=== PATIENT | female | born 1940 | race Hispanic/Latino ===

== ENCOUNTER 2018-04-01 09:12 | Inpatient (IN) | payer MEDICARE, OTHER ==
[~2018-04-01] VITALS: Ht 162.6 cm; Wt 74.1 kg
--- OUTSIDE RECORDS SUMMARY | 2018-04-01 09:21 | XMS REPORT | Continuity of Care Document ---
Author Author [facility] Interface Address Unknown Phone Unavailable Problems Problem Status Onset Date Classification Date Reported Comments Source M54.6/M54.5 Active 03/30/2018 [facility] COUGH Active 10/22/2017 [facility] Discharge Diagnosis: Acute UTI 01/25/2017 01/28/2017 [facility] Discharge Diagnosis: Neck pain 01/25/2017 01/28/2017 [facility] Discharge Diagnosis: Acute bilateral back pain 01/25/2017 01/28/2017 [facility] BACK PAIN Active 01/24/2017 [facility], [facility] [place] ABD/BACK PAIN Active 01/17/2017 [facility] Discharge Diagnosis: Abdominal pain in female. 01/17/2017 01/20/2017 [facility] Discharge Diagnosis: Acute lower urinary tract infection 01/17/2017 01/20/2017 [facility] Discharge Diagnosis: Nausea, vomiting, and diarrhea 12/12/2016 12/15/2016 [facility] VOMITING Active 12/12/2016 [facility] Discharge Diagnosis: Hypertension 09/01/2016 09/05/2016 [facility] Discharge Diagnosis: Headache 09/01/2016 09/05/2016 [facility] HIGH BP - DR SENT Active 09/01/2016 [facility] Discharge Diagnosis: Chronic pain 12/23/2015 12/27/2015 [facility] Discharge Diagnosis: Back pain 12/23/2015 12/27/2015 [facility] Discharge Diagnosis: Anxiety 12/23/2015 12/27/2015 [facility] Discharge Diagnosis: Hypertension 12/23/2015 12/27/2015 [facility] SOB Active 12/23/2015 [facility] Discharge Diagnosis: Chronic back pain 12/22/2015 12/25/2015 [facility] Discharge Diagnosis: Itching 12/22/2015 12/25/2015 [facility] ACUTE ASTHMA EXCERBATION, HYPOTENSIVE EP Active 10/28/2015 [facility] ASTHMA Active 10/28/2015 [facility] Discharge Diagnosis: Asthma 10/25/2015 10/28/2015 [facility] Discharge Diagnosis: Epigastric abdominal pain 10/25/2015 10/28/2015 [facility] ATYPICAL CHEST PAIN AND GENERALIZED PAIN Active 10/19/2015 [facility] ABD PAIN Active 10/19/2015 [facility] PAIN IN ARM/INFECTION Active 10/05/2015 [facility] ATYPICAL CHEST PAIN, DYSPNEA Active 10/05/2015 [facility] Discharge Diagnosis: Acute bronchitis, unspecified 09/28/2015 10/01/2015 [facility] Discharge Diagnosis: Hypokalemia 09/28/2015 10/01/2015 [facility] Discharge Diagnosis: Upper abdominal pain, unspecified 09/26/2015 09/29/2015 [facility] Discharge Diagnosis: Low back pain 09/26/2015 09/29/2015 [facility] NAUSEA Active 09/25/2015 [facility] Discharge Diagnosis: Generalized abdominal pain 09/14/2015 09/17/2015 [facility] Discharge Diagnosis: Vomiting without nausea 09/14/2015 09/17/2015 [facility] Discharge Diagnosis: Headache 09/14/2015 09/17/2015 [facility] MIGRAINE Active 09/14/2015 [facility] Discharge Diagnosis: Back pain, chronic 08/25/2015 08/28/2015 [facility] Discharge Diagnosis: Urinary tract infection, site not specified 08/20/2015 08/23/2015 [facility] Discharge Diagnosis: DJD , lumbar 06/14/2015 06/18/2015 [facility] PALPITATIONS NEAR SYNCOPE Active 06/04/2015 [facility] PALLPITATIONS Active 06/04/2015 [facility] Discharge Diagnosis: Other muscle spasm 05/27/2015 05/30/2015 [facility] Discharge Diagnosis: Weakness 05/27/2015 05/30/2015 [facility] WEAKNESS Active 05/27/2015 [facility] GENERALIZED WEAKNESS, DEHYDRATION Active 05/04/2015 [facility] HEAD ACHE/ BACK PAIN Active 05/04/2015 [facility] Discharge Diagnosis: Acute URI 03/04/2015 03/07/2015 [facility] HEAD PAIN/BACK PAIN Active 03/04/2015 [facility] Discharge Diagnosis: Lumbago syndrome 02/06/2015 02/09/2015 [facility] Discharge Diagnosis: Hypertension 11/22/2014 11/25/2014 [facility] HIGH BLOOD PRESSURE Active 11/22/2014 [facility] Discharge Diagnosis: Bronchitis 11/09/2014 11/12/2014 [facility] Discharge Diagnosis: URI, acute 11/09/2014 11/12/2014 [facility] Discharge Diagnosis: Acute back pain 10/19/2014 10/22/2014 [facility] ABDOMINAL PAIN Active 10/19/2014 [facility] Discharge Diagnosis: Migraine 09/02/2014 09/05/2014 [facility] Discharge Diagnosis: Gastritis 09/02/2014 09/05/2014 [facility] HEADACHE Active 09/01/2014 [facility] CHEST PAIN Active 08/16/2014 [facility] HEADACHE/ CHEST PAIN Active 08/14/2014 [facility] Discharge Diagnosis: Back pain, chronic 05/05/2014 05/07/2014 [facility] Major depressive disorder<sup>17</sup> Active 03/24/2014 Problem 01/28/2017 Data migrated from [employer] on 08/23/14. [facility] Discharge Diagnosis: Chronic pain 11/16/2013 11/19/2013 [facility] Discharge Diagnosis: Back pain 11/16/2013 11/19/2013 [facility] Discharge Diagnosis: Arthritis 11/16/2013 11/19/2013 [facility] LOWER BACK PAIN/LEG PAIN Active 11/16/2013 [facility] SCREENING Active 10/31/2013 [facility] Sleep apnea<sup>11</sup> Active 10/27/2013 Problem 08/20/2014 11Data migrated from [employer] on 07/15/14. [facility] Sleep apnea<sup>23</sup> Active 10/27/2013 Problem 01/28/2017 Data migrated from [employer] on 07/15/14. [facility] Discharge Diagnosis: Acute viral syndrome 10/20/2013 10/23/2013 [facility] Gastroesophageal reflux disease<sup>6</sup> Active 08/08/2013 Problem 08/20/2014 6Data migrated from [employer] on 07/15/14. [facility] Acute bronchitis<sup>1, 2</sup> Resolved 08/08/2013 Problem 01/28/2017 Data migrated from [employer] on 09/01/14. [facility] Gastroesophageal reflux disease<sup>10</sup> Active 08/08/2013 Problem 01/28/2017 Data migrated from [employer] on 07/15/14. [facility] Allergic rhinitis<sup>1</sup> Active 05/02/2013 Problem 08/20/2014 1Data migrated from [employer] on 07/15/14. [facility] Chronic headache disorder<sup>5</sup> Active 05/02/2013 Problem 08/20/2014 5Data migrated from [employer] on 07/15/14. [facility] Vertigo<sup>12</sup> Active 05/02/2013 Problem 08/20/2014 12Data migrated from [employer] on 07/15/14. [facility] Allergic rhinitis<sup>3</sup> Active 05/02/2013 Problem 01/28/2017 Data migrated from [employer] on 07/15/14. [facility] Chronic headache disorder<sup>8</sup> Active 05/02/2013 Problem 01/28/2017 Data migrated from [employer] on 07/15/14. [facility] Vertigo<sup>24</sup> Active 05/02/2013 Problem 01/28/2017 Data migrated from [employer] on 07/15/14. [facility] Asthma<sup>2</sup> Active 01/28/2013 Problem 08/20/2014 2Data migrated from [employer] on 07/15/14. [facility] Insomnia<sup>7</sup> Active 01/28/2013 Problem 08/20/2014 7Data migrated from [employer] on 07/15/14. [facility] Asthma<sup>4</sup> Active 01/28/2013 Problem 01/28/2017 Data migrated from [employer] on 07/15/14. [facility] Insomnia<sup>16</sup> Active 01/28/2013 Problem 01/28/2017 Data migrated from [employer] on 07/15/14. [facility] Impaired fasting glycaemia<sup>12</sup> Resolved 01/16/2013 Problem 01/28/2017 Data migrated from [employer] on 08/23/14. [facility] Impaired glucose tolerance<sup>13</sup> Active 01/16/2013 Problem 01/28/2017 Data migrated from [employer] on 08/23/14. [facility] Mixed hyperlipidemia<sup>8</sup> Active 12/28/2012 Problem 08/20/2014 8Data migrated from [employer] on 07/15/14. [facility] Mixed hyperlipidemia<sup>18</sup> Active 12/28/2012 Problem 01/28/2017 Data migrated from [employer] on 07/15/14. [facility] MENAPAUSAL Active 09/17/2012 [facility] Benign essential hypertension<sup>3</sup> Active 07/09/2012 Problem 08/20/2014 3Data migrated from [employer] on 07/15/14. [facility] Benign essential hypertension<sup>5</sup> Active 07/09/2012 Problem 01/28/2017 Data migrated from [employer] on 07/15/14. [facility] MIGRAINES/VOMITTING/COLD SWEATS Active 02/06/2012 [facility] Chronic back pain<sup>4</sup> Active 02/16/1957 Problem 08/20/2014 4Data migrated from [employer] on 07/15/14. [facility] Chronic back pain<sup>7</sup> Active 02/16/1959 Problem 01/28/2017 Data migrated from [employer] on 07/15/14. [facility] Arthritis Resolved Problem 09/23/2012 [facility] Hypertension Resolved Problem 09/23/2012 [facility] Arthritis Active Problem 01/28/2017 [facility] Hypertension Active Problem 01/28/2017 [facility] Migraine Active Problem 01/28/2017 [facility] Spinal stenosis Active Problem 01/28/2017 [facility] Hyperlipidemia Active Problem 01/28/2017 [facility] Osteoarthritis<sup>9</sup> Active Problem 08/20/2014 9Data migrated from [employer] on 07/15/14. [facility] Osteopenia<sup>10</sup> Active Problem 08/20/2014 10Data migrated from [employer] on 07/15/14. [facility] Backache Active Problem 01/28/2017 [facility] HTN (<span ID="[id number]">Confirmed</span>) Active Problem 01/28/2017 [facility] Child examination finding<sup>6</sup> Resolved Problem 01/28/2017 Data migrated from [employer] on 09/01/14. [facility] Diverticulitis Active Problem 01/28/2017 [facility] Evaluation finding<sup>9</sup> Resolved Problem 01/28/2017 Data migrated from [employer] on 09/01/14. [facility] Gastritis Resolved Problem 01/28/2017 [facility] GERD (<span ID="[id number]">Confirmed</span>) Resolved Problem 01/28/2017 [facility] Gynecologic examination<sup>11</sup> Resolved Problem 01/28/2017 Data migrated from [employer] on 09/01/14. [facility] HTN - Hypertension Resolved Problem 01/28/2017 [facility] Osteoarthritis<sup>19</sup> Active Problem 01/28/2017 Data migrated from [employer] on 07/15/14. [facility] Osteopenia<sup>20</sup> Active Problem 01/28/2017 Data migrated from [employer] on 07/15/14. [facility] Physical examination procedure<sup>21</sup> Resolved Problem 01/28/2017 Data migrated from [employer] on 09/01/14. [facility] Screening mammography<sup>22</sup> Resolved Problem 01/28/2017 Data migrated from [employer] on 09/01/14. [facility] Ac DVT/embl low ext NOS Resolved Problem 01/28/2017 [facility] XRAY Active [facility] JOINT PAIN-PELVIS Active [facility] SYMPT FEM CLIMACT STATE Active [facility] BAKC PAIN Active [facility] ASYMPTOMATIC PREMATURE MENOPAUSE Active [facility] Medications Medication Details Route Status Patient Instructions Ordering Provider Order Date Source tramadol hydrochloride 50 MG Oral Tablet [Ultram] 25 mg=0.5 tab, PO, Q6H, PRN Pain Score 6-10, X 5 day, # 12 tab, 0 Refill(s) Active 01/25/2017 [facility] Cephalexin 500 MG Oral Capsule [Keflex] 500 mg=1 cap, PO, QID, X 5 day, # 20 cap, 0 Refill(s) Active 01/25/2017 [facility] Zofran 4 mg, Route: IVP, Drug form: INJ, ONCE, Dosing Weight 72.727, kg, Priority: STAT, Start date: 01/25/17 2:20:00 FERMENTER, Stop date: 01/25/17 2:20:00 FERMENTER Inactive 01/25/2017 [facility] Morphine 2 mg, Route: IVP, ONCE, Dosing Weight 72.727, kg, Priority: STAT, Start date: 01/25/17 2:20:00 FERMENTER, Stop date: 01/25/17 2:20:00 FERMENTER Inactive 01/25/2017 [facility] Sodium Chloride 0.9% (Bolus) IV 1,000 mL, 1000 ml/hr, Infuse Over: 1 hr, Route: IV, 1,000, Drug form: INJ, ONCE, Priority: STAT, Dosing Weight 72.727 kg, Start date: 01/25/17 0:52:00 FERMENTER, Stop date: 01/25/17 0:52:00 FERMENTER Inactive 01/25/2017 [facility] Ceftriaxone 1 gm, Route: IV, ONCE, Dosing Weight 72.727, kg, Priority: STAT, Start date: 01/25/17 0:52:00 FERMENTER, Stop date: 01/25/17 0:52:00 FERMENTER, ABX Indication: Urinary Tract InfectionNotes: (Same As: Rocephin). Use with 100 mL NS and infuse over 30 min MEDICATION WASTE Product Size: 1000 mg Product Wasted: ___ mg Inactive 01/25/2017 [facility] Tylenol 650 mg, Route: PO, Drug form: TAB, ONCE, Dosing Weight 72.727, kg, Priority: STAT, Start date: 01/25/17 0:51:00 FERMENTER, Stop date: 01/25/17 0:51:00 FERMENTER Inactive 01/25/2017 [facility] Saline Flush 0.9% 10 mL, Route: IVP, Drug Form: INJ, Dosing Weight 70.455, kg, PRN, PRN Line Flush, Start date: 01/24/17 19:55:00 FERMENTER, Duration: 30 day, Stop date: 02/23/17 19:54:00 CSTNotes: (Same as: BD Posiflush) No Longer Active 01/25/2017 [facility] Sulfamethoxazole 800 MG / Trimethoprim 160 MG Oral Tablet [Bactrim] 1 tab, PO, BID, for UTI, X 7 day, # 14 tab, 0 Refill(s) Active 01/18/2017 [facility] Zofran ODT 4 mg, Route: PO, Drug form: TABDIS, ONCE, Dosing Weight 70.455, kg, Priority: STAT, Start date: 01/17/17 20:34:00 FERMENTER, Stop date: 01/17/17 20:34:00 FERMENTER Inactive 01/18/2017 [facility] Morphine 4 mg, Route: IM, ONCE, Dosing Weight 70.455, kg, Priority: STAT, Start date: 01/17/17 20:11:00 FERMENTER, Stop date: 01/17/17 20:11:00 FERMENTER Inactive 01/18/2017 [facility] Tylenol 650 mg, 2 tab, Route: PO, Drug form: TAB, ONCE, Dosing Weight 70.455, kg, Priority: STAT, Start date: 01/17/17 19:54:00 FERMENTER, Stop date: 01/17/17 19:54:00 CSTNotes: Do not exceed 4 gm/day. (Same as: Tylenol) Inactive 01/18/2017 [facility] Rocephin 1 gm, Route: IVPB, Drug form: PDR/INJ, ONCE, Dosing Weight 70.455, kg, Priority: STAT, Start date: 01/17/17 19:42:00 FERMENTER, Stop date: 01/17/17 19:42:00 FERMENTER, ABX Indication: Urinary Tract Infection Inactive 01/18/2017 [facility] NS (Bolus) IV 1,000 mL, 1,000 ml/hr, Infuse Over: 1 hr, Route: IV, 1,000, Drug form: INJ, ONCE, Priority: STAT, Dosing Weight 70.455 kg, Start date: 01/17/17 16:50:00 FERMENTER, Stop date: 01/17/17 16:50:00 FERMENTER Inactive 01/17/2017 [facility] Morphine 4 mg, 1 mL, Route: IVP, Drug form: SOLN, ONCE, Dosing Weight 70.455, kg, Priority: STAT, Start date: 01/17/17 16:49:00 FERMENTER, Stop date: 01/17/17 16:49:00 CSTNotes: (Same as:MORPhine Sulfate) Inactive 01/17/2017 [facility] Ondansetron 4 mg, 2 mL, Route: IVP, Drug form: INJ, ONCE, Dosing Weight 70.455, kg, Priority: STAT, Start date: 01/17/17 15:36:00 FERMENTER, Stop date: 01/17/17 15:36:00 CSTNotes: (Same as: Zofran) MEDICATION WASTE Product Size: 4 mg Product Wasted: ___ mg Inactive 01/17/2017 [facility] Saline Flush 0.9% 10 mL, Route: IVP, Drug Form: INJ, Dosing Weight 70.455, kg, PRN, PRN Line Flush, Start date: 01/17/17 15:36:00 FERMENTER, Duration: 30 day, Stop date: 02/16/17 15:35:00 CSTNotes: (Same as: BD Posiflush) Inactive 01/17/2017 [facility] Zofran ODT 4 mg oral tablet, disintegrating 4 mg=1 tab, PO, BID, PRN Nausea and Vomiting, Dissolve tab under tongue, # 10 tab, 0 Refill(s) Active 12/13/2016 [facility] morphine Sulfate 4 mg, Route: IVP, ONCE, Dosing Weight 72.727, kg, Priority: STAT, Start date: 12/12/16 17:02:00 CDT, Stop date: 12/12/16 17:02:00 CDT Inactive 12/12/2016 [facility] Zofran 4 mg, 2 mL, Route: IVP, Drug form: INJ, ONCE, Dosing Weight 72.727, kg, Priority: STAT, Start date: 12/12/16 13:09:00 CDT, Stop date: 12/12/16 13:09:00 CDTNotes: (Same as: Zofran) MEDICATION WASTE Product Size: 4 mg Product Wasted: ___ mg Inactive 12/12/2016 [facility] NS (Bolus) IV 1,000 mL, 1,000 ml/hr, Infuse Over: 1 hr, Route: IV, 1,000, Drug form: INJ, ONCE, Priority: STAT, Dosing Weight 72.727 kg, Start date: 12/12/16 13:09:00 CDT, Duration: 1 doses or times, Stop date: 13:09:00 CDT Inactive 12/12/2016 [facility] Saline Flush 0.9% 10 mL, Route: IVP, Drug Form: INJ, Dosing Weight 61.364, kg, PRN, PRN Line Flush, Start date: 12/12/16 13:07:00 CDT, Duration: 30 day, Stop date: 01/11/17 12:06:00 CSTNotes: (Same as: BD Posiflush) Inactive 12/12/2016 [facility] Clonidine Hydrochloride 0.1 MG Oral Tablet 0.1 mg, 1 tab, Route: PO, Drug form: TAB, ONCE, Dosing Weight 61.364, kg, Priority: STAT, Start date: 09/01/16 21:45:00 CDT, Stop date: 09/01/16 21:45:00 CDTNotes: (Same As: Catapres) Inactive 09/02/2016 [facility] Acetaminophen 325 MG / Hydrocodone Bitartrate 5 MG Oral Tablet 1 tab, Route: PO, Drug Form: TAB, Dosing Weight 61.364, kg, ONCE, STAT, Start date: 09/01/16 20:17:00 CDT, Stop date: 09/01/16 20:17:00 CDTNotes: (Same as: [place] 325/5) Do not exceed 4gm/day of acetaminophen. Inactive 09/02/2016 [facility] Sodium Chloride 0.154 MEQ/ML Injectable Solution 1,000 mL, Rate: 75 ml/hr, Infuse over: 13.3 hr, Route: IV, Dosing Weight 61.364 kg, Total Volume: 1,000, Priority: STAT, Start date: 09/01/16 20:17:00 CDT, Duration: 1 doses or times, Stop date: 09/02/16 9:34:00 CDT Inactive 09/02/2016 [facility] Metoclopramide 10 mg, 2 mL, Route: IVP, Drug form: INJ, ONCE, Dosing Weight 61.364, kg, Priority: STAT, Start date: 09/01/16 20:17:00 CDT, Stop date: 09/01/16 20:17:00 CDTNotes: (Same as: Reglan) Inactive 09/02/2016 [facility] Saline Flush 0.9% 10 mL, Route: IVP, Drug Form: INJ, Dosing Weight 61.364, kg, PRN, PRN Line Flush, Start date: 09/01/16 12:51:00 CDT, Duration: 30 day, Stop date: 10/01/16 12:50:00 CDTNotes: (Same as: BD Posiflush) No Longer Active 09/01/2016 [facility] Acetaminophen 325 MG / Hydrocodone Bitartrate 5 MG Oral Tablet [[place] 5/325] 1 tab, Route: PO, Drug Form: TAB, Dosing Weight 61.364, kg, ONCE, STAT, Start date: 12/23/15 22:20:00 FERMENTER, Stop date: 12/23/15 22:20:00 FERMENTER Inactive 12/24/2015 [facility] Morphine 2 mg, Route: IVP, ONCE, Dosing Weight 61.364, kg, Priority: STAT, Start date: 12/23/15 22:20:00 FERMENTER, Stop date: 12/23/15 22:20:00 FERMENTER Inactive 12/24/2015 [facility] Ativan 0.5 mg, Route: IVP, Drug form: INJ, ONCE, Dosing Weight 61.364, kg, Priority: STAT, Start date: 12/23/15 21:41:00 FERMENTER, Stop date: 12/23/15 21:41:00 FERMENTER Inactive 12/24/2015 [facility] Morphine 4 mg, Route: IVP, ONCE, Dosing Weight 61.364, kg, Priority: STAT, Start date: 12/23/15 21:27:00 FERMENTER, Stop date: 12/23/15 21:27:00 FERMENTER Inactive 12/24/2015 [facility] Sodium Chloride 0.154 MEQ/ML Injectable Solution 1,000 mL, 1,000 ml/hr, Infuse Over: 1 hr, Route: IV, ONCE, Priority: STAT, Dosing Weight 61.364 kg, Start date: 12/23/15 21:27:00 FERMENTER, Duration: 1 doses or times, Stop date: 12/23/15 21:27:00 FERMENTER Inactive 12/24/2015 [facility] Diphenhydramine Hydrochloride 25 MG Oral Tablet [Benadryl] 25 mg=1 tab, PO, TID, PRN as needed for itching, X 3 day, # 9 tab, 0 Refill(s) Active 12/22/2015 [facility] Diphenhydramine 25 mg, Route: IVP, ONCE, Dosing Weight 60.909, kg, Priority: STAT, Start date: 12/22/15 13:09:00 CDT, Stop date: 12/22/15 13:09:00 CDT Inactive 12/22/2015 [facility] acetaminophen-codeine #3 1 tab, Route: PO, Drug Form: TAB, Dosing Weight 60.909, kg, ONCE, STAT, Start date: 12/22/15 13:09:00 CDT, Stop date: 12/22/15 13:09:00 CDT Inactive 12/22/2015 [facility] Sodium Chloride 0.154 MEQ/ML Injectable Solution 1,000 mL, Rate: 75 ml/hr, Infuse over: 13.3 hr, Route: IV, Dosing Weight 67.273 kg, Total Volume: 1,000, Start date: 10/31/15 12:12:00 CDT, Duration: 30 day, Stop date: 11/30/15 12:11:00 CDT Inactive 10/31/2015 [facility] isosorbide mononitrate 30 mg oral tablet, extended release 30 mg=1 tab, PO, [id number], # 30 tab, 0 Refill(s), Pharmacy: [facility] [id number] Active 10/31/2015 [facility] lisinopril 10 mg oral tablet 10 mg=1 tab, PO, Daily, # 30 tab, 0 Refill(s), Pharmacy: [facility] [id number] Active 10/31/2015 [facility] mirtazapine 15 mg oral tablet 7.5 mg=0.5 tab, PO, Bedtime, # 15 tab, 0 Refill(s), Pharmacy: [facility] [id number] Active 10/31/2015 [facility] Acetaminophen 300 MG / butalbital 50 MG / Caffeine 40 MG Oral Capsule [Fioricet] 1 cap, PO, Q4H, PRN Headache 1-5, X 14 day, # 84 cap, 0 Refill(s), Pharmacy: [facility] [id number] Active 10/31/2015 [facility] Acetaminophen 300 MG / Codeine Phosphate 30 MG Oral Tablet 1 tab, PO, Q4H, PRN Pain Score 4-6, X 14 day, # 84 tab, 0 Refill(s) Active 10/31/2015 [facility] Remeron 7.5 mg, 0.5 tab, Route: PO, Drug form: TAB, Bedtime, Dosing Weight 67.273, kg, Start date: 10/30/15 21:00:00 CDT, Duration: 30 day, Stop date: 11/28/15 21:00:00 CDTNotes: (Same as:Remeron) No Longer Active 10/31/2015 [facility] Lisinopril 10 mg, 1 tab, Route: PO, Drug form: TAB, Daily, Dosing Weight 67.273, kg, Start date: 10/30/15 16:00:00 CDT, Duration: 30 day, Stop date: 11/29/15 9:00:00 CDTNotes: (Same as: Prinivil, Zestril) No Longer Active 10/30/2015 [facility] Hydralazine 10 mg, 0.5 mL, Route: IVP, Drug form: INJ, Q6H, Dosing Weight 67.273, kg, PRN Hypertension, 10mg IV q6h prn SBP>160mmHg, Start date: 10/30/15 15:30:00 CDT, Duration: 30 day, Stop date: 11/29/15 15:29 :00 CDTNotes: (Same as: Apresoline) Push over 5 minutes No Longer Active 10/30/2015 [facility] Streptococcus pneumoniae serotype 1 capsular antigen diphtheria [id number] protein conjugate vaccine / Streptococcus pneumoniae serotype 14 capsular antigen diphtheria [id number] protein conjugate vaccine / Streptococcus pneumoniae serotype 18C capsular antigen d 0.5 mL, Route: IM, Drug Form: INJ, Daily, Start date: 10/30/15 9:00:00 CDT, Stop date: 10/30/15 13:00:00 CDTNotes: Lightly roll vial (DO NOT SHAKE) before administration. (Same as: Prevnar 13) Inactive 10/30/2015 [facility] atorvastatin 40 mg, 1 tab, Route: PO, Drug form: TAB, Bedtime, Dosing Weight 67.273, kg, Start date: 10/29/15 21:00:00 CDT, Duration: 30 day, Stop date: 11/27/15 21:00:00 CDTNotes: (Same as: Lipitor) No Longer Active 10/30/2015 [facility] Ondansetron 4 mg, 1 tab, Route: PO, Drug form: TAB, Q8H, Dosing Weight 67.273, kg, PRN Nausea & Vomiting, Start date: 10/29/15 15:45:00 CDT, Duration: 30 day, Stop date: 11/28/15 15:44:00 CDTNotes: (Same as: Zofran) No Longer Active 10/29/2015 [facility] [place] Nitroglycerin 0.4 mg, 1 tab, Route: SL, Drug form: TAB, Q5Min, Dosing Weight 67.273, kg, PRN Chest Pain, Start date: 10/29/15 15:45:00 CDT, Duration: 3 doses or times, Stop date: Limited # of timesNotes: (Same as: Nitroquick, Nitrostat) "Do Not Crush" Sublingual tablet No Longer Active 10/29/2015 [facility] [place] 24 HR Metoprolol Tartrate 25 MG Extended Release Tablet [Toprol] 25 mg, 1 tab, Route: PO, Drug form: ERTAB, Daily, Start date: 10/29/15 13:00:00 CDT, Duration: 30 day, Stop date: 11/28/15 9:00:00 CDTNotes: (Same as: Toprol XL) Do Not Crush No Longer Active 10/29/2015 [facility] [place] Please clarify what day of the week Patient takes Fosamax Please clarify what day of the week Patient takes Fosamax, Reminder, Drug form: MISC, Route: MISC, Daily, 10/29/15 10:00:00 CDT, Duration: 30 day, Stop date: 11/28/15 9:00:00 CDT No Longer Active 10/29/2015 [facility] [place] Symbicort 160/4.5 inhalation aerosol with adapter 2 inhalation, Route: INHALATION, Drug Form: AERO/A, Dosing Weight 67.273, kg, BID, Start date: 10/29/15 9:00:00 CDT, Duration: 30 day, Stop date: 11/27/15 17:00:00 CDTNotes: (Same as: Symbicort) WASTE: Aerosol - Return to Pharmacy No Longer Active 10/29/2015 [facility] [place] Aspirin 81 MG Enteric Coated Tablet 81 mg, 1 tab, Route: PO, Drug form: ECTAB, Daily, Dosing Weight 67.273, kg, Start date: 10/29/15 9:00:00 CDT, Duration: 30 day, Stop date: 11/27/15 9:00:00 CDTNotes: Do not crush or chew. (Same As: Ecotrin) No Longer Active 10/29/2015 [facility] [place] Solu-Medrol 40 mg, 1 mL, Route: IVP, Drug form: INJ, Q12H, Dosing Weight 67.273, kg, Start date: 10/29/15 9:00:00 CDT, Duration: 30 day, Stop date: 11/27/15 21:00:00 CDTNotes: (Same as:Solu-MEDROL, A-Methapred) No Longer Active 10/29/2015 [facility] [place] Alendronate 70 mg, Route: PO, Drug form: TAB, Q7D, Dosing Weight 67.273, kg, Start date: 10/29/15 9:00:00 CDT, Duration: 30 day, Stop date: 11/26/15 9:00:00 CDT No Longer Active 10/29/2015 [facility] [place] Famotidine 20 mg, 1 tab, Route: PO, Drug form: TAB, BID, Dosing Weight 67.273, kg, Start date: 10/29/15 9:00:00 CDT, Duration: 30 day, Stop date: 11/27/15 17:00:00 CDTNotes: (Same as: Pepcid) No Longer Active 10/29/2015 [facility] [place] Amlodipine 10 mg, 2 tab, Route: PO, Drug form: TAB, Daily, Dosing Weight 67.273, kg, Start date: 10/29/15 9:00:00 CDT, Duration: 30 day, Stop date: 11/27/15 9:00:00 CDTNotes: (Same as: Norvasc) Inactive 10/29/2015 [facility] [place] Furosemide 20 MG Oral Tablet 20 mg, 1 tab, Route: PO, Drug form: TAB, Daily, Dosing Weight 67.273, kg, Start date: 10/29/15 9:00:00 CDT, Duration: 30 day, Stop date: 11/27/15 9:00:00 CDTNotes: (Same as: Lasix) May cause GI upset. Give with food or milk. Inactive 10/29/2015 [facility] [place] digoxin 125 mcg (0.125 mg) oral tablet 125 microgram, 1 tab, Route: PO, Drug form: TAB, Daily, Dosing Weight 67.273, kg, Start date: 10/29/15 9:00:00 CDT, Duration: 30 day, Stop date: 11/27/15 9:00:00 CDTNotes: Take on an Empty Stomach (Same as: Lanoxin) Inactive 10/29/2015 [facility] [place] Tramadol 50 mg, 1 tab, Route: PO, Drug form: TAB, Q6H, Dosing Weight 67.273, kg, PRN Pain Score 1-3, Start date: 10/29/15 8:55:00 CDT, Duration: 30 day, Stop date: 11/28/15 8:54:00 CDTNotes: Not to exceed 400mg/day. (Same As: Ultram) No Longer Active 10/29/2015 [facility] [place] Afrin 0.05% nasal spray 2 spray, Route: NASAL, Drug Form: SPRY, Dosing Weight 67.273, kg, BID, PRN Congestion, Start date: 10/29/15 8:55:00 CDT, Duration: 30 day, Stop date: 11/28/15 8:54:00 CDTNotes: (Same as: Afrin) No Longer Active 10/29/2015 [facility] [place] Metoclopramide 5 MG Oral Tablet 5 mg, 1 tab, Route: PO, Drug form: TAB, Before Meals & Bedtime, Dosing Weight 67.273, kg, PRN Nausea, Start date: 10/29/15 8:55:00 CDT, Duration: 30 day, Stop date: 11/28/15 8:54:00 CDTNotes: (Same as: Reglan) Take 30 min before meals No Longer Active 10/29/2015 [facility] [place] Lorazepam 1 mg, 1 tab, Route: PO, Drug form: TAB, Q6H, Dosing Weight 67.273, kg, PRN Anxiety, Start date: 10/29/15 8:55:00 CDT, Duration: 30 day, Stop date: 11/28/15 8:54:00 CDTNotes: (Same as: Ativan) No Longer Active 10/29/2015 [facility] [place] Dicyclomine 10 mg, 1 cap, Route: PO, Drug form: CAP, QID- Before Meals, Dosing Weight 67.273, kg, PRN Cramps, Start date: 10/29/15 8:54:00 CDT, Duration: 30 day, Stop date: 11/28/15 8:53:00 CDTNotes: (Same as: Leo) No Longer Active 10/29/2015 [facility] [place] Acetaminophen 325 MG / butalbital 50 MG / Caffeine 40 MG Oral Tablet 1 tab, Route: PO, Drug Form: TAB, Dosing Weight 67.273, kg, Q4H, PRN Headache 1-5, Start date: 10/29/15 8:54:00 CDT, Duration: 30 day, Stop date: 11/28/15 8:53:00 CDT No Longer Active 10/29/2015 [facility] [place] 200 ACTUAT Albuterol 0.09 MG/ACTUAT Metered Dose Inhaler 2 puff, Route: INHALATION, Drug Form: AERO/A, Dosing Weight 67.273, kg, QID, PRN Wheezing, Start date: 10/29/15 8:54:00 CDT, Duration: 30 day, Stop date: 11/28/15 8:53:00 CDTNotes: Albuterol 90 microgram/inh 8gm HFA WASTE: Aerosol - Return to Pharmacy Same as: Ventolin Proventil No Longer Active 10/29/2015 [facility] [place] Acetaminophen 300 MG / Codeine Phosphate 30 MG Oral Tablet 1 tab, Route: PO, Drug Form: TAB, Dosing Weight 67.273, kg, Q4H, PRN Pain Score 4-6, Start date: 10/29/15 8:54:00 CDT, Duration: 30 day, Stop date: 11/28/15 8:53:00 CDTNotes: Do not exceed 4gm/day of acetaminophen. (Same as: Tylenol with Codeine # 3) No Longer Active 10/29/2015 [facility] [place] Albuterol 0.83 MG/ML Inhalant Solution 2.49 mg, 3 mL, Route: NEB, Drug form: SOLN, RQ4H, Dosing Weight 67.273, kg, Start date: 10/28/15 23:00:00 CDT, Duration: 30 day, Stop date: 11/27/15 19:00:00 CDT, Pediatric DosingNotes: SEE RT DOCUMENTATION (Same as: Proventil) Inactive 10/29/2015 [facility] [place] Lovenox 40 mg, 0.4 mL, Route: SUB-Q, Drug form: INJ, [id number], Dosing Weight 67.273, kg, Start date: 10/28/15 22:00:00 CDT, Duration: 30 day, Stop date: 11/26/15 22:00:00 CDTNotes: (Same as: Lovenox) No Longer Active 10/29/2015 [facility] [place] Imdur 30 mg, 1 tab, Route: PO, Drug form: ERTAB, [id number], Dosing Weight 67.273, kg, Start date: 10/28/15 22:00:00 CDT, Duration: 30 day, Stop date: 11/26/15 22:00:00 CDTNotes: (Same as:Imdur) "Do Not Crush" Take on empty stomach/ full glass of water. Do not crush No Longer Active 10/29/2015 [facility] [place] Nitroglycerin 0.4 MG Sublingual Tablet 0.4 mg, 1 tab, Route: SL, Drug form: TAB, ONCE, Dosing Weight 67.273, kg, PRN Chest Pain, Start date: 10/28/15 21:56:00 CDT, Duration: 1 doses or times, Stop date: Limited # of timesNotes: (Same as:Nitroquick, Nitrostat) "Do Not Crush" Sublingual tablet No Longer Active 10/29/2015 [facility] [place] Ambien 5 mg, 1 tab, Route: PO, Drug form: TAB, Bedtime, Dosing Weight 67.273, kg, PRN Insomnia, Start date: 10/28/15 21:31:00 CDT, Duration: 30 day, Stop date: 11/27/15 21:30:00 CDTNotes: (Same As: Ambien) No Longer Active 10/29/2015 [facility] [place] Albuterol 0.833 MG/ML / Ipratropium E[place] 0.167 MG/ML Inhalant Solution [DuoNeb] 3 ml, Route: INHALATION, Drug Form: SOLN, Dosing Weight 67.273, kg, PRN, PRN Respiratory Protocol, Start date: 10/28/15 19:17:00 CDT, Duration: 30 day, Stop date: 11/27/15 19:16:00 CDTNotes: (Same as: Duoneb) No Longer Active 10/29/2015 [facility] [place] Morphine 2 mg, 1 mL, Route: IVP, Drug form: INJ, Q4H, Dosing Weight 67.273, kg, PRN Pain Score 7-10, Start date: 10/28/15 19:17:00 CDT, Duration: 30 day, Stop date: 11/27/15 19:16:00 CDTNotes: (Same as:MORPhine Sulfate) No Longer Active 10/29/2015 [facility] [place] Ondansetron 4 mg, 2 mL, Route: IVP, Drug form: INJ, Q6H, Dosing Weight 67.273, kg, PRN Nausea & Vomiting, Start date: 10/28/15 19:17:00 CDT, Duration: 30 day, Stop date: 11/27/15 19:16:00 CDTNotes: (Same as: Zofran) MEDICATION WASTE Product Size: 4 mg Product Wasted: ___ mg No Longer Active 10/29/2015 [facility] [place] Docusate 100 mg, 1 cap, Route: PO, Drug form: CAP, BID, Dosing Weight 67.273, kg, PRN Constipation, Start date: 10/28/15 19:17:00 CDT, Duration: 30 day, Stop date: 11/27/15 19:16:00 CDTNotes: (Same as: Colace) (Do Not Crush) No Longer Active 10/29/2015 [facility] [place] Acetaminophen 650 mg, 2 tab, Route: PO, Drug form: TAB, Q4H, Dosing Weight 67.273, kg, PRN Pain 1-3/Temp > 100.4 F, Start date: 10/28/15 19:17:00 CDT, Duration: 30 day, Stop date: 11/27/15 19:16:00 CDTNotes: Do not exceed 4 gm/day. (Same as: Tylenol) No Longer Active 10/29/2015 [facility] [place] Sodium Chloride 0.154 MEQ/ML Injectable Solution 1,000 mL, Rate: 75 ml/hr, Infuse over: 13.3 hr, Route: IV, Dosing Weight 67.273 kg, Total Volume: 1,000, Start date: 10/28/15 19:17:00 CDT, Duration: 30 day, Stop date: 11/27/15 19:16:00 CDT No Longer Active 10/29/2015 [facility] [place] methylPREDNISolone SODium SUCCinate 125 mg, 2 mL, Route: IVP, Drug form: INJ, ONCE, Dosing Weight 67.273, kg, Priority: STAT, Start date: 10/28/15 17:04:00 CDT, Stop date: 10/28/15 17:04:00 CDTNotes: (Same as:Solu-MEDROL, A-Methapred) Inactive 10/28/2015 [facility] [place] Zofran 4 mg, Route: IVP, Drug form: INJ, ONCE, Dosing Weight 67.273, kg, Priority: STAT, Start date: 10/28/15 16:32:00 CDT, Stop date: 10/28/15 16:32:00 CDT Inactive 10/28/2015 [facility] [place] Morphine 2 mg, Route: IVP, ONCE, Dosing Weight 67.273, kg, Priority: STAT, Start date: 10/28/15 16:31:00 CDT, Stop date: 10/28/15 16:31:00 CDT Inactive 10/28/2015 [facility] [place] Sodium Chloride 0.154 MEQ/ML Injectable Solution 500 mL, 500 ml/hr, Infuse Over: 1 hr, Route: IV, 500, Drug form: INJ, ONCE, Priority: STAT, Dosing Weight 67.273 kg, Start date: 10/28/15 14:41:00 CDT, Duration: 1 doses or times, Stop date: 10/28/15 14:41:00 CDT Inactive 10/28/2015 [facility] [place] Albuterol 0.833 MG/ML / Ipratropium [place] 0.167 MG/ML Inhalant Solution [DuoNeb] 3 ml, Route: NEB, Drug Form: SOLN, Dosing Weight 67.273, kg, PRN, PRN Respiratory Protocol, Start date: 10/28/15 13:06:00 CDT, Duration: 30 day, Stop date: 11/27/15 13:05:00 CDTNotes: (Same as: Duoneb) No Longer Active 10/28/2015 [facility] [place] Saline Flush 0.9% 10 mL, Route: IVP, Drug Form: INJ, Dosing Weight 67.273, kg, PRN, PRN Line Flush, Start date: 10/28/15 13:06:00 CDT, Duration: 30 day, Stop date: 11/27/15 13:05:00 CDTNotes: (Same as: BD Posiflush) Inactive 10/28/2015 [facility] [place] Sodium Chloride 0.154 MEQ/ML Injectable Solution 500 mL, 500 ml/hr, Infuse Over: 1 hr, Route: IV, 500, Drug form: INJ, ONCE, Priority: STAT, Dosing Weight 67.273 kg, Start date: 10/28/15 13:06:00 CDT, Duration: 1 doses or times, Stop date: 10/28/15 13:06:00 CDT Inactive 10/28/2015 [facility] [place] predniSONE 20 mg oral tablet 40 mg=2 tab, PO, Daily, X 4 day, # 8 tab, 0 Refill(s) Active 10/25/2015 [facility] [place] Prednisone 60 mg, Route: PO, Drug form: TAB, ONCE, Dosing Weight 62.727, kg, Priority: STAT, Start date: 10/25/15 5:56:00 CDT, Stop date: 10/25/15 5:56:00 CDT Inactive 10/25/2015 [facility] [place] Valium 5 mg, Route: PO, ONCE, Dosing Weight 62.727, kg, Priority: STAT, Start date: 10/25/15 5:46:00 CDT, Stop date: 10/25/15 5:46:00 CDT Inactive 10/25/2015 [facility] [place] Albuterol 0.833 MG/ML / Ipratropium [place] 0.167 MG/ML Inhalant Solution [DuoNeb] 3 ml, Route: NEB, Drug Form: SOLN, Dosing Weight 62.727, kg, PRN, PRN Respiratory Protocol, Start date: 10/25/15 4:43:00 CDT, Duration: 30 day, Stop date: 11/24/15 4:42:00 CDTNotes: (Same as: Duoneb) Inactive 10/25/2015 [facility] [place] Morphine 4 mg, Route: IVP, ONCE, Dosing Weight 62.727, kg, Priority: STAT, Start date: 10/25/15 3:09:00 CDT, Stop date: 10/25/15 3:09:00 CDT Inactive 10/25/2015 [facility] [place] Ondansetron 4 mg, Route: IVP, Drug form: INJ, ONCE, Dosing Weight 62.727, kg, Priority: STAT, Start date: 10/25/15 2:05:00 CDT, Stop date: 10/25/15 2:05:00 CDT Inactive 10/25/2015 [facility] [place] Sodium Chloride 0.154 MEQ/ML Injectable Solution 1,000 mL, Rate: 75 ml/hr, Infuse over: 13.3 hr, Route: IV, Dosing Weight 62.727 kg, Total Volume: 1,000, Priority: STAT, Start date: 10/25/15 2:05:00 CDT, Duration: 1 doses or times, Stop date: 10/25/15 15:22:00 CDT Inactive 10/25/2015 [facility] [place] Aspirin 325 MG Oral Tablet 325 mg, 1 tab, Route: PO, Drug form: TAB, Daily, Dosing Weight 62.727, kg, Start date: 10/21/15 9:00:00 CDT, Duration: 30 day, Stop date: 11/19/15 9:00:00 CDTNotes: Take with food. No Longer Active 10/21/2015 [facility] [place] Saline Flush 0.9% 10 ml, Route: IVP, Drug Form: INJ, Dosing Weight 62.727, kg, Q12H, Start date: 10/20/15 21:00:00 CDT, Duration: 30 day, Stop date: 11/19/15 9:00:00 CDTNotes: (Same as: BD Posiflush) Inactive 10/21/2015 [facility] [place] Enoxaparin 40 mg, 0.4 mL, Route: SUB-Q, Drug form: INJ, [id number], Dosing Weight 62.727, kg, Start date: 10/20/15 14:00:00 CDT, Duration: 30 day, Stop date: 11/18/15 14:00:00 CDTNotes: (Same as: Lovenox) Inactive 10/20/2015 [facility] [place] Nitroglycerin 0.02 MG/MG Topical Ointment 0.5 inch, Route: TOP, Drug Form: OINT, Dosing Weight 62.727, kg, TID, Start date: 10/20/15 13:00:00 CDT, Duration: 30 day, Stop date: 11/19/15 9:00:00 CDTNotes: 1 gram is approximately 1 inch of nitroglycerin ointment (20 mg NTG per gram) (Same as:Nitro-Bid) Inactive 10/20/2015 [facility] [place] Saline Flush 0.9% 10 ml, Route: IVP, Drug Form: INJ, Dosing Weight 62.727, kg, PRN, PRN Line Flush, Start date: 10/20/15 9:47:00 CDT, Duration: 30 day, Stop date: 11/19/15 9:46:00 CDTNotes: (Same as: BD Posiflush) Inactive 10/20/2015 [facility] [place] Ondansetron 4 mg, 1 tab, Route: PO, Drug form: TAB, Q8H, Dosing Weight 62.727, kg, PRN Nausea & Vomiting, Start date: 10/20/15 9:47:00 CDT, Duration: 30 day, Stop date: 11/19/15 9:46:00 CDTNotes: (Same as: Zofran) Inactive 10/20/2015 [facility] [place] Nitroglycerin 0.4 mg, 1 tab, Route: SL, Drug form: TAB, Q5Min, Dosing Weight 62.727, kg, PRN Chest Pain, Start date: 10/20/15 9:47:00 CDT, Duration: 3 doses or times, Stop date: Limited # of timesNotes: (Same as:Dustin burgos, Nitrostat) "Do Not Crush" Sublingual tablet Inactive 10/20/2015 [facility] [place] Acetaminophen 650 mg, 2 tab, Route: PO, Drug form: TAB, Q4H, Dosing Weight 62.727, kg, PRN Headache 1-5, Start date: 10/20/15 9:47:00 CDT, Duration: 30 day, Stop date: 11/19/15 9:46:00 CDTNotes: Do not exceed 4 gm /day. (Same as: Tylenol) Inactive 10/20/2015 [facility] [place] Morphine 4 mg, 2 mL, Route: IVP, Drug form: INJ, Q2H, Dosing Weight 62.727, kg, PRN Pain Score 7-10, Start date: 10/20/15 9:47:00 CDT, Duration: 30 day, Stop date: 11/19/15 9:46:00 CDTNotes: (Same as:MORPhine Sulfate) Inactive 10/20/2015 [facility] [place] Glucose 50 MG/ML / Sodium Chloride 0.0769 MEQ/ML Injectable Solution 1,000 mL, Rate: 75 ml/hr, Infuse over: 13.3 hr, Route: IV, Dosing Weight 62.727 kg, Total Volume: 1,000, Start date: 10/20/15 9:47:00 CDT, Duration: 30 day, Stop date: 11/19/15 9:46:00 CDT Inactive 10/20/2015 [facility] [place] Acetaminophen 325 MG / Hydrocodone Bitartrate 10 MG Oral Tablet [[place] 10/325] 1 tab, Route: PO, Drug Form: TAB, Dosing Weight 62.727, kg, ONCE, STAT, Start date: 10/20/15 8:08:00 CDT, Stop date: 10/20/15 8:08:00 CDTNotes: Do not exceed 4gm/day of acetaminophen. (Same as: [place] 325/10) Inactive 10/20/2015 [facility] [place] Clonidine Hydrochloride 0.1 MG Oral Tablet 0.1 mg, Route: PO, Drug form: TAB, ONCE, Dosing Weight 62.727, kg, Priority: STAT, Start date: 10/20/15 3:41:00 CDT, Stop date: 10/20/15 3:41:00 CDT Inactive 10/20/2015 [facility] [place] Morphine 4 mg, Route: IVP, ONCE, Dosing Weight 62.727, kg, Priority: STAT, Start date: 10/20/15 3:30:00 CDT, Stop date: 10/20/15 3:30:00 CDT Inactive 10/20/2015 [facility] [place] Ondansetron 4 mg, Route: IVP, ONCE, Dosing Weight 62.727, kg, Priority: STAT, Start date: 10/20/15 3:30:00 CDT, Stop date: 10/20/15 3:30:00 CDT Inactive 10/20/2015 [facility] [place] Sodium Chloride 0.154 MEQ/ML Injectable Solution 1,000 mL, Rate: 125 ml/hr, Infuse over: 8 hr, Route: IV, Dosing Weight 62.727 kg, Total Volume: 1,000, Priority: STAT, Start date: 10/20/15 3:30:00 CDT, Duration: 1 doses or times, Stop date: 10/20/15 11:29:00 CDT Inactive 10/20/2015 [facility] [place] Saline Flush 0.9% 10 mL, Route: IVP, Drug Form: INJ, Dosing Weight 62.727, kg, PRN, PRN Line Flush, Start date: 10/20/15 3:30:00 CDT, Duration: 30 day, Stop date: 11/19/15 3:29:00 CDTNotes: (Same as: BD Posiflush) Inactive 10/20/2015 [facility] [place] Aspirin 324 mg, Route: PO, ONCE, Dosing Weight 62.727, kg, Priority: STAT, Start date: 10/20/15 3:30:00 CDT, Stop date: 10/20/15 3:30:00 CDT Inactive 10/20/2015 [facility] [place] Amoxicillin 875 mg, PO, 0 Refill(s) Active 10/15/2015 [facility] [place] Famotidine 20 mg=1 tab, PO, BID, # 60 tab, 0 Refill(s) Active 10/15/2015 [facility] [place] Afrin Severe Congestion 2 spray, NASAL, BID, 0 Refill(s) Active 10/15/2015 [facility] [place] Codeine PO, Q4H, 0 Refill(s) Active 10/15/2015 [facility] [place] tizanidine 2 mg oral capsule 4 mg=2 cap, PO, Q8H, 0 Refill(s) Active 10/15/2015 [facility] [place] potassium chloride 10 mEq oral capsule, extended release 10 mEq=1 cap, PO, BID, 0 Refill(s) Active 10/15/2015 [facility] [place] Furosemide 20 MG Oral Tablet 20 mg=1 tab, PO, Daily, # 30 tab, 0 Refill(s) Active 10/15/2015 [facility] [place] Calcium Chloride 0.0014 MEQ/ML / Potassium Chloride 0.004 MEQ/ML / Sodium Chloride 0.103 MEQ/ML / Sodium Lactate 0.028 MEQ/ML Injectable Solution 1,000 mL, Rate: 25 ml/hr, Infuse over: 40 hr, Route: IV, Dosing Weight 63.636 kg, Total Volume: 1,000, Start date: 10/15/15 9:52:00 CDT, Duration: 1 day, Stop date: 10/16/15 9:51:00 CDT Inactive 10/15/2015 [facility] [place] zolpidem 5 mg sublingual tablet 5 mg=1 tab, SL, Bedtime, PRN for sleep, 0 Refill(s) Active 10/12/2015 [facility] [place] promethazine 12.5 mg oral tablet 12.5 mg=1 tab, PO, Q4H, PRN Nausea & Vomiting, # 60 tab, 0 Refill(s) Active 10/12/2015 [facility] [place] metoclopramide 5 mg oral tablet, disintegrating 5 mg=1 tab, PO, Before Meals & Bedtime, # 120 tab, 0 Refill(s) Active 10/12/2015 [facility] [place] famotidine 40 mg/5 mL oral liquid 40 mg=5 ml, PO, Bedtime, # 150 ml, 0 Refill(s) Active 10/12/2015 [facility] [place] dicyclomine 10 mg oral capsule 10 mg=1 cap, PO, QID-Before Meals, # 28 cap, 0 Refill(s) Active 10/12/2015 [facility] [place] amLODIPine 10 mg oral tablet 10 mg=1 tab, PO, Daily, # 30 tab, 0 Refill(s) Active 10/12/2015 [facility] [place] atorvastatin 40 mg oral tablet 40 mg=1 tab, PO, Bedtime, # 90 tab, 0 Refill(s) Active 10/12/2015 [facility] [place] Alendronic acid 70 MG Oral Tablet 70 mg=1 tab, PO, Q7D, # 4 tab, 0 Refill(s) Active 10/12/2015 [facility] [place] Acetaminophen 300 MG / Codeine Phosphate 30 MG Oral Tablet 1 tab, PO, Q4H, PRN Pain, # 42 tab, 0 Refill(s) Active 10/12/2015 [facility] [place] tizanidine 2 mg oral tablet 2 mg=1 tab, PO, Q8H, PRN shoulder pain, # 30 tab, 0 Refill(s) Active 10/07/2015 [facility] [place] Streptococcus pneumoniae serotype 1 capsular antigen diphtheria [id number] protein conjugate vaccine / Streptococcus pneumoniae serotype 14 capsular antigen diphtheria [id number] protein conjugate vaccine / Streptococcus pneumoniae serotype 18C capsular antigen d 0.5 mL, Route: IM, Daily, Start date: 10/06/15 9:00:00 CDT, Duration: 1 doses or times, Stop date: 10/06/15 9:00:00 CDT No Longer Active 10/06/2015 [facility] [place] Saline Flush 0.9% 10 ml, Route: IVP, Drug Form: INJ, Dosing Weight 63.636, kg, Q12H, Start date: 10/06/15 9:00:00 CDT, Duration: 30 day, Stop date: 11/04/15 21:00:00 CDTNotes: (Same as: Posiflush) No Longer Active 10/06/2015 [facility] [place] Aspirin 325 MG Oral Tablet 325 mg, 1 tab, Route: PO, Drug form: TAB, Daily, Dosing Weight 63.636, kg, Start date: 10/06/15 9:00:00 CDT, Duration: 30 day, Stop date: 11/04/15 9:00:00 CDTNotes: Take with food. No Longer Active 10/06/2015 [facility] [place] Nitroglycerin 0.02 MG/MG Topical Ointment 0.5 inch, Route: TOP, Drug Form: OINT, Dosing Weight 63.636, kg, TID, Start date: 10/06/15 6:00:00 CDT, Duration: 30 day, Stop date: 11/04/15 18:00:00 CDTNotes: 1 gram is approximately 1 inch of nitroglycerin ointment (20 mg NTG per gram) (Same as:Nitro-Bid) No Longer Active 10/06/2015 [facility] [place] Tylenol 650 mg, 2 tab, Route: PO, Drug form: TAB, Q4H, Dosing Weight 63.636, kg, PRN Headache 1-5, Start date: 10/06/15 5:35:00 CDT, Duration: 30 day, Stop date: 11/05/15 5:34:00 CDTNotes: Do not exceed 4 gm/day. (Same as: Tylenol) No Longer Active 10/06/2015 [facility] [place] Enoxaparin 40 mg, 0.4 mL, Route: SUB-Q, Drug form: INJ, [id number], Dosing Weight 63.636, kg, Start date: 10/06/15 1:00:00 CDT, Duration: 30 day, Stop date: 11/04/15 1:00:00 CDTNotes: (Same as: Lovenox) No Longer Active 10/06/2015 [facility] [place] atropine 0.5 mg, 5 mL, Route: IVP, Drug form: INJ, PRN, PRN Bradycardia, Start date: 10/05/15 22:52:00 CDT, Duration: 30 day, Stop date: 11/04/15 22:51:00 CDT No Longer Active 10/06/2015 [facility] [place] nitroglycerin 0.4 mg sublingual tablet 0.4 mg, 1 tab, Route: SL, Drug form: TAB, Q5Min, PRN Chest Pain, Start date: 10/05/15 22:52:00 CDT, Duration: 30 day, Stop date: 11/04/15 22:51:00 CDTNotes: (Same as:Nitroquick, Nitrostat) "Do Not Crush" Sublingual tablet No Longer Active 10/06/2015 [facility] [place] Amlodipine 10 mg, PO, Daily, 0 Refill(s) Active 10/06/2015 [facility] [place] Tramadol 50 mg, PO, Q6H, PRN Pain, # 20 tab, 0 Refill(s) Active 10/06/2015 [facility] [place] Lorazepam 1 mg, PO, Q6H, PRN as needed for anxiety, 0 Refill(s) Active 10/06/2015 [facility] [place] Symbicort 160/4.5 inhalation aerosol with adapter 2 puff, INHALATION, BID, 0 Refill(s) Active 10/06/2015 [facility] [place] Amoxicillin / Clavulanate 875 mg, PO, BID, # 20 tab, 0 Refill(s) Active 10/06/2015 [facility] [place] Famotidine 40 mg, PO, BID, # 60 tab, 0 Refill(s) Active 10/06/2015 [facility] [place] Phenergan 6.25 mg, PO, Q8H, PRN as needed for nausea/vomiting, phenergan 6.25mg/5ml po q8h, 0 Refill(s) Active 10/06/2015 [facility] [place] Prednisone 50 mg, PO, Daily, Quantity sufficient, 0 Refill(s) Active 10/06/2015 [facility] [place] Ambien 5 mg, PO, Bedtime, 0 Refill(s) Active 10/06/2015 [facility] [place] Acetaminophen 300 MG / Codeine Phosphate 30 MG Oral Tablet [Tylenol with Codeine #3] 1 tab, PO, Q6H, PRN Pain Score 4-6, 0 Refill(s) Active 10/06/2015 [facility] Symbicort 160/4.5 inhalation aerosol with adapter 2 puff, INHALATION, BID, 0 Refill(s) Active 10/06/2015 [facility] potassium chloride 10 mEq, PO, Daily, 0 Refill(s) Active 10/06/2015 [facility] Furosemide 20 MG Oral Tablet [Lasix] 20 mg=1 tab, PO, Daily, 0 Refill(s) Active 10/06/2015 [facility] digoxin 125 mcg (0.125 mg) oral tablet 125 microgram=1 tab, PO, Daily, 0 Refill(s) Active 10/06/2015 [facility] dicyclomine 10 mg oral capsule 10 mg=1 cap, PO, TID, 0 Refill(s) Active 10/06/2015 [facility] Saline Flush 0.9% 10 ml, Route: IVP, Drug Form: INJ, Dosing Weight 63.636, kg, PRN, PRN Line Flush, Start date: 10/05/15 21:32:00 CDT, Duration: 30 day, Stop date: 11/04/15 21:31:00 CDTNotes: (Same as: BD Posiflush) No Longer Active 10/06/2015 [facility] Morphine 2 mg, 1 mL, Route: IVP, Drug form: INJ, Q2H, Dosing Weight 63.636, kg, PRN Pain Score 4-6, Start date: 10/05/15 21:32:00 CDT, Duration: 30 day, Stop date: 11/04/15 21:31:00 CDTNotes: (Same as:MORPhine Sulfate) No Longer Active 10/06/2015 [facility] Ondansetron 4 mg, 1 tab, Route: PO, Drug form: TAB, Q8H, Dosing Weight 63.636, kg, PRN Nausea & Vomiting, Start date: 10/05/15 21:32:00 CDT, Duration: 30 day, Stop date: 11/04/15 21:31:00 CDTNotes: (Same as: Zofran) No Longer Active 10/06/2015 [facility] Temazepam 15 mg, 1 cap, Route: PO, Drug form: CAP, Bedtime, Dosing Weight 63.636, kg, PRN Insomnia, Start date: 10/05/15 21:32:00 CDT, Duration: 30 day, Stop date: 11/04/15 21:31:00 CDTNotes: (Same As: Restoril) No Longer Active 10/06/2015 [facility] Nitroglycerin 0.4 mg, 1 tab, Route: SL, Drug form: TAB, Q5Min, Dosing Weight 63.636, kg, PRN Chest Pain, Start date: 10/05/15 21:32:00 CDT, Duration: 3 doses or times, Stop date: Limited # of timesNotes: (Same as: Nitroquick, Nitrostat) "Do Not Crush" Sublingual tablet Inactive 10/06/2015 [facility] Aspirin 325 MG Oral Tablet 325 mg, 1 tab, Route: PO, Drug form: TAB, ONCE, Dosing Weight 63.636, kg, Priority: STAT, Start date: 10/05/15 20:17:00 CDT, Stop date: 10/05/15 20:17:00 CDTNotes: Take with food. Inactive 10/06/2015 [facility] Nitroglycerin 0.02 MG/MG Topical Ointment 1 inch, Route: TOP, Drug Form: OINT, Dosing Weight 63.636, kg, ONCE, STAT, Start date: 10/05/15 20:17:00 CDT, Stop date: 10/05/15 20:17:00 CDTNotes: 1 gram is approximately 1 inch of nitroglycerin ointment (20 mg NTG per gram) (Same as:Nitro-Bid) Inactive 10/06/2015 [facility] Zofran 4 mg, 2 mL, Route: IVP, Drug form: INJ, ONCE, Dosing Weight 63.636, kg, Priority: STAT, Start date: 10/05/15 20:16:00 CDT, Stop date: 10/05/15 20:16:00 CDTNotes: (Same as: Zofran) MEDICATION WASTE Product Size: 4 mg Product Wasted: ___ mg Inactive 10/06/2015 [facility] Morphine 4 mg, 2 mL, Route: IVP, Drug form: INJ, ONCE, Dosing Weight 63.636, kg, Priority: STAT, Start date: 10/05/15 20:16:00 CDT, Stop date: 10/05/15 20:16:00 CDTNotes: (Same as:MORPhine Sulfate) Inactive 10/06/2015 [facility] Saline Flush 0.9% 10 mL, Route: IVP, Drug Form: INJ, Dosing Weight 63.636, kg, PRN, PRN Line Flush, Start date: 10/05/15 15:23:00 CDT, Duration: 30 day, Stop date: 11/04/15 15:22:00 CDTNotes: (Same as: BD Posiflush) No Longer Active 10/05/2015 [facility] predniSONE 50 mg oral tablet 50 mg=1 tab, PO, Daily, X 7 day, # 7 tab, 0 Refill(s) Active 09/29/2015 [facility] 200 ACTUAT Albuterol 0.09 MG/ACTUAT Metered Dose Inhaler 2 puff, INHALATION, QID, PRN Wheezing, # 17 gm, 0 Refill(s) Active 09/29/2015 [facility] methylPREDNISolone SODium SUCCinate 125 mg, Route: IVP, ONCE, Dosing Weight 68.182, kg, Priority: STAT, Start date: 09/28/15 19:58:00 CDT, Stop date: 09/28/15 19:58:00 CDT Inactive 09/29/2015 [facility] potassium chloride 40 mEq, 2 tab, Route: PO, Drug form: ERTAB, ONCE, Dosing Weight 68.182, kg, Priority: STAT, Start date: 09/28/15 19:42:00 CDT, Stop date: 09/28/15 19:42:00 CDTNotes: (Same as: K-Dur 20) "Do Not Crush" With food and full glass of water Inactive 09/29/2015 [facility] Albuterol 0.83 MG/ML Inhalant Solution 2.49 mg, Route: NEB, Drug form: SOLN, ONCE, Dosing Weight 68.182, kg, Priority: STAT, Start date: 09/28/15 19:42:00 CDT, Stop date: 09/28/15 19:42:00 CDT Inactive 09/29/2015 [facility] Diazepam 2 MG Oral Tablet [Valium] 2 mg=1 tab, PO, Bedtime, PRN Anxiety, X 7 day, # 7 tab, 0 Refill(s) Active 09/26/2015 [facility] Valium 5 mg, 1 mL, Route: IVP, Drug form: INJ, ONCE, Dosing Weight 68.182, kg, Priority: STAT, Start date: 09/26/15 1:04:00 CDT, Stop date: 09/26/15 1:04:00 CDTNotes: (Same as: Valium) WASTE: F/P - Black; E - White/Blue Inactive 09/26/2015 [facility] Sodium Chloride 0.154 MEQ/ML Injectable Solution 1,000 mL, Rate: 125 ml/hr, Infuse over: 8 hr, Route: IV, Dosing Weight 68.182 kg, Total Volume: 1,000, Start date: 09/26/15 0:14:00 CDT, Duration: 30 day, Stop date: 10/26/15 0:13:00 CDT Inactive 09/26/2015 [facility] Famotidine 20 mg, 2 mL, Route: IVP, Drug form: INJ, ONCE, Dosing Weight 64.545, kg, Priority: STAT, Start date: 09/25/15 22:59:00 CDT, Stop date: 09/25/15 22:59:00 CDTNotes: (Same as: Pepcid) Can be dilute in 5-10cc NS IVP: Slow IV push over at least 2 minutes. No Longer Active 09/26/2015 [facility] Ondansetron 4 mg, 2 mL, Route: IVP, Drug form: INJ, ONCE, Dosing Weight 64.545, kg, Priority: STAT, Start date: 09/25/15 22:59:00 CDT, Stop date: 09/25/15 22:59:00 CDTNotes: (Same as: Zofran) MEDICATION WASTE Product Size: 4 mg Product Wasted: ___ mg No Longer Active 09/26/2015 [facility] Saline Flush 0.9% 10 mL, Route: IVP, Drug Form: INJ, Dosing Weight 64.545, kg, PRN, PRN Line Flush, Start date: 09/25/15 22:59:00 CDT, Duration: 30 day, Stop date: 10/25/15 22:58:00 CDTNotes: (Same as: BD Posiflush) No Longer Active 09/26/2015 [facility] Zofran 4 mg, Route: IVP, Drug form: INJ, ONCE, Dosing Weight 64.545, kg, Priority: STAT, Start date: 09/14/15 16:20:00 CDT, Stop date: 09/14/15 16:20:00 CDT Inactive 09/14/2015 [facility] Morphine 4 mg, Route: IVP, Drug form: INJ, ONCE, Dosing Weight 64.545, kg, Priority: STAT, Start date: 09/14/15 16:20:00 CDT, Stop date: 09/14/15 16:20:00 CDT Inactive 09/14/2015 [facility] Benadryl 12.5 mg, 0.25 mL, Route: IVP, Drug form: INJ, ONCE, Dosing Weight 64.545, kg, Priority: STAT, Start date: 09/14/15 14:22:00 CDT, Stop date: 09/14/15 14:22:00 CDTNotes: (Same as: Benadryl) Inactive 09/14/2015 [facility] Reglan 10 mg, 2 mL, Route: IVP, Drug form: INJ, ONCE, Dosing Weight 64.545, kg, Priority: STAT, Start date: 09/14/15 14:22:00 CDT, Stop date: 09/14/15 14:22:00 CDTNotes: (Same as: Reglan) Inactive 09/14/2015 [facility] Sodium Chloride 0.154 MEQ/ML Injectable Solution 1,000 mL, 1000 ml/hr, Infuse Over: 1 hr, Route: IV, 1,000, Drug form: INJ, ONCE, Priority: STAT, Dosing Weight 64.545 kg, Start date: 09/14/15 14:22:00 CDT, Duration: 1 doses or times, Stop date: 09/14/15 14:22:00 CDT Inactive 09/14/2015 [facility] Morphine 2 mg, 1 mL, Route: IVP, Drug form: INJ, ONCE, Dosing Weight 65, kg, Priority: STAT, Start date: 08/25/15 20:35:00 CDT, Stop date: 08/25/15 20:35:00 CDTNotes: (Same as:MORPhine Sulfate) Inactive 08/26/2015 [facility] Zofran 4 mg, 2 mL, Route: IVP, Drug form: INJ, ONCE, Dosing Weight 65, kg, Priority: STAT, Start date: 08/25/15 17:53:00 CDT, Stop date: 08/25/15 17:53:00 CDTNotes: (Same as: Zofran) MEDICATION WASTE Product Size: 4 mg Product Wasted: ___ mg Inactive 08/25/2015 [facility] Morphine 4 mg, 2 mL, Route: IVP, Drug form: INJ, ONCE, Dosing Weight 65, kg, Priority: STAT, Start date: 08/25/15 17:53:00 CDT, Stop date: 08/25/15 17:53:00 CDTNotes: (Same as:MORPhine Sulfate) Inactive 08/25/2015 [facility] Motrin 400 mg, Route: PO, Drug form: TAB, ONCE, Dosing Weight 65.909, kg, Priority: STAT, Start date: 08/20/15 14:13:00 CDT, Stop date: 08/20/15 14:13:00 CDT Inactive 08/20/2015 [facility] Sulfamethoxazole 800 MG / Trimethoprim 160 MG Oral Tablet [Bactrim] 1 tab, PO, BID, X 7 day, # 14 tab, 0 Refill(s) Active 08/20/2015 [facility] Ceftriaxone 1 gm, Route: IVPB, Drug form: PDR/INJ, ONCE, Dosing Weight 65.909, kg, Priority: STAT, Start date: 08/20/15 14:08:00 CDT, Stop date: 08/20/15 14:08:00 CDT Inactive 08/20/2015 [facility] Ondansetron 4 mg, 2 mL, Route: IVP, Drug form: INJ, ONCE, Dosing Weight 65.909, kg, Priority: STAT, Start date: 08/20/15 11:09:00 CDT, Stop date: 08/20/15 11:09:00 CDTNotes: (Same as: Rosy) MEDICATION WASTE Product Size: 4 mg Product Wasted: ___ mg Inactive 08/20/2015 [facility] Morphine 4 mg, 2 mL, Route: IVP, Drug form: INJ, ONCE, Dosing Weight 65.909, kg, Priority: STAT, Start date: 08/20/15 11:09:00 CDT, Stop date: 08/20/15 11:09:00 CDTNotes: (Same as:MORPhine Sulfate) Inactive 08/20/2015 [facility] Saline Flush 0.9% 10 mL, Route: IVP, Drug Form: INJ, Dosing Weight 65.909, kg, PRN, PRN Line Flush, Start date: 08/20/15 11:09:00 CDT, Duration: 30 day, Stop date: 09/19/15 11:08:00 CDTNotes: Same as: BD Posiflush Sterile No Longer Active 08/20/2015 [facility] Sodium Chloride 0.154 MEQ/ML Injectable Solution 1,000 mL, Rate: 125 ml/hr, Infuse over: 8 hr, Route: IV, Dosing Weight 65.909 kg, Total Volume: 1,000, Start date: 08/20/15 11:09:00 CDT, Duration: 30 day, Stop date: 09/19/15 11:08:00 CDT No Longer Active 08/20/2015 [facility] Benadryl 25 mg, Route: IVP, ONCE, Dosing Weight 65.909, kg, Priority: STAT, Start date: 06/15/15 0:32:00 CDT, Stop date: 06/15/15 0:32:00 CDT Inactive 06/15/2015 [facility] Reglan 10 mg, Route: IVP, Drug form: INJ, ONCE, Dosing Weight 65.909, kg, Priority: STAT, Start date: 06/15/15 0:32:00 CDT, Stop date: 06/15/15 0:32:00 CDT Inactive 06/15/2015 [facility] Ketorolac 15 mg, Route: IVP, Drug form: INJ, ONCE, Dosing Weight 65.909, kg, Priority: STAT, Start date: 06/15/15 0:32:00 CDT, Stop date: 06/15/15 0:32:00 CDT Inactive 06/15/2015 [facility] Acetaminophen 325 MG / Hydrocodone Bitartrate 5 MG Oral Tablet [[place] 5/325] 1 tab, Route: PO, Drug Form: TAB, Dosing Weight 65.909, kg, ONCE, STAT, Start date: 06/14/15 23:00:00 CDT, Stop date: 06/14/15 23:00:00 CDTNotes: (Same as: [place] 325/5) Do not exceed 4gm/day of acetaminophen. Inactive 06/15/2015 [facility] Robaxin 750 mg, 1 tab, Route: PO, Drug form: TAB, ONCE, Dosing Weight 65.909, kg, Priority: STAT, Start date: 06/14/15 22:59:00 CDT, Stop date: 06/14/15 22:59:00 CDTNotes: (Same as:Robaxin) Inactive 06/15/2015 [facility] Acetaminophen 300 MG / Codeine Phosphate 30 MG Oral Tablet [Tylenol with Codeine #3] 1 - 2 tab, PO, Q4H, PRN Pain, X 2 day, # 20 tab, 0 Refill(s) No Longer Active 06/15/2015 [facility] GI cocktail 30 mL, Route: PO, Dosing Weight 65.909, kg, ONCE, STAT, Start date: 06/14/15 21:37:00 CDT, Stop date: 06/14/15 21:37:00 CDT Inactive 06/15/2015 [facility] Acetaminophen 300 MG / Codeine Phosphate 30 MG Oral Tablet [Tylenol with Codeine #3] 1 tab, Route: PO, Drug Form: TAB, Dosing Weight 65.909, kg, ONCE, STAT, Start date: 06/14/15 20:48:00 CDT, Stop date: 06/14/15 20:48:00 CDTNotes: Do not exceed 4gm/day of acetaminophen. (Same as: Tylenol with Codeine # 3) Inactive 06/15/2015 [facility] Potassium Chloride 20 MEQ Extended Release Tablet 40 mEq, 2 tab, Route: PO, Drug form: ERTAB, ONCE, Dosing Weight 62.727, kg, Start date: 06/06/15 10:24:00 CDT, Stop date: 06/06/15 10:24:00 CDTNotes: (Same as: K-Dur 20) "Do Not Crush" With food and full glass of water Inactive 06/06/2015 [facility] Miralax 17 gm, 1 pkt, Route: PO, Drug form: PWDR, Daily, Dosing Weight 62.727, kg, Start date: 06/06/15 9:00:00 CDT, Duration: 30 day, Stop date: 07/05/15 9:00:00 CDTNotes: Dissolve in 8 oz of water or juice. (Same as: Miralax) Inactive 06/06/2015 [facility] Hydralazine 10 mg, 0.5 mL, Route: IVP, Drug form: INJ, Q6H, Dosing Weight 62.727, kg, Priority: NOW, Start date: 06/06/15 6:02:00 CDT, Duration: 30 day, Stop date: 07/06/15 6:00:00 CDTNotes: (Same as: Apresoline) Push over 5 minutes Inactive 06/06/2015 [facility] Simvastatin 80 mg, 2 tab, Route: PO, Drug form: TAB, Bedtime, Dosing Weight 62.727, kg, Start date: 06/05/15 21:00:00 CDT, Duration: 30 day, Stop date: 07/04/15 21:00:00 CDTNotes: (Same as: Zocor) Inactive 06/06/2015 [facility] Amitriptyline 25 mg, 1 tab, Route: PO, Drug form: TAB, Bedtime, Dosing Weight 62.727, kg, Start date: 06/05/15 21:00:00 CDT, Duration: 30 day, Stop date: 07/04/15 21:00:00 CDTNotes: (Same as: Elavil) No Longer Active 06/06/2015 [facility] Lipitor 40 mg, 1 tab, Route: PO, Drug form: TAB, Bedtime, Dosing Weight 62.727, kg, Start date: 06/05/15 21:00:00 CDT, Duration: 30 day, Stop date: 07/04/15 21:00:00 CDTNotes: (Same as: Lipitor) No Longer Active 06/06/2015 [facility] 24 HR Metoprolol Tartrate 25 MG Extended Release Tablet [Toprol] 25 mg=1 tab, PO, Daily, # 30 tab, 0 Refill(s) Active 06/05/2015 [facility] atorvastatin 40 mg oral tablet 40 mg=1 tab, PO, Bedtime, # 30 tab, 0 Refill(s) Active 06/05/2015 [facility] 24 HR Metoprolol Tartrate 25 MG Extended Release Tablet [Toprol] 25 mg, 1 tab, Route: PO, Drug form: ERTAB, Daily, Start date: 06/05/15 14:30:00 CDT, Duration: 30 day, Stop date: 07/05/15 9:00:00 CDTNotes: (Same as: Toprol XL) Do Not Crush No Longer Active 06/05/2015 [facility] APAP/butalbital/caffeine 1 tab, Route: PO, Drug Form: TAB, Q4H, PRN Headache 1-5, Start date: 06/05/15 13:30:00 CDT, Duration: 30 day, Stop date: 07/05/15 13:29:00 CDTNotes: (cmpbzklqkwhvo-wftgtfeyms-hyalhjst 325-50-40mg) Do not exceed 4 gm/day of acetaminophen. (Same as: Esgic, Fioricet) No Longer Active 06/05/2015 [facility] Aspirin 325 MG / butalbital 50 MG / Caffeine 40 MG Oral Capsule [Fiorinal] 1 cap, Route: PO, Drug Form: CAP, Dosing Weight 62.727, kg, Q4H, PRN Headache 1-5, Start date: 06/05/15 13:11:00 CDT, Duration: 30 day, Stop date: 07/05/15 13:10:00 CDT Inactive 06/05/2015 [facility] Potassium Chloride 20 MEQ Extended Release Tablet 40 mEq, 2 tab, Route: PO, Drug form: ERTAB, ONCE, Dosing Weight 62.727, kg, Start date: 06/05/15 12:09:00 CDT, Stop date: 06/05/15 12:09:00 CDTNotes: (Same as: K-Dur 20) "Do Not Crush" With food and full glass of water Inactive 06/05/2015 [facility] Maalox Advanced Regular Strength SUSP 30 mL, Route: PO, Drug Form: SUSP, Dosing Weight 62.727, kg, QID, PRN Indigestion, Start date: 06/05/15 12:08:00 CDT, Duration: 30 day, Stop date: 07/05/15 12:07:00 CDTNotes: (aluminum hydroxide-magnesium hyd-simethicone [id number]/5ml 30 ml ud MARIA ESTHER) No Longer Active 06/05/2015 [facility] Acetaminophen 650 mg, 2 tab, Route: PO, Drug form: TAB, Q6H, Dosing Weight 62.727, kg, PRN Pain 1-3/Temp > 100.4 F, Priority: Routine, Start date: 06/05/15 12:08:00 CDT, Duration: 30 day, Stop date: 07/05/15 12:07:00 CDTNotes: Do not exceed 4 gm/day. (Same as: Tylenol) No Longer Active 06/05/2015 [facility] Docusate Sodium 100 MG Oral Capsule [Colace] 100 mg, 1 cap, Route: PO, Drug form: CAP, BID, Dosing Weight 62.727, kg, PRN Constipation, Start date: 06/05/15 12:08:00 CDT, Duration: 30 day, Stop date: 07/05/15 12:07:00 CDTNotes: (Same as: Colace) (Do Not Crush) No Longer Active 06/05/2015 [facility] Zofran 4 mg, 2 mL, Route: IVP, Drug form: INJ, Q4H, Dosing Weight 62.727, kg, PRN Nausea, Start date: 06/05/15 9:24:00 CDT, Duration: 30 day, Stop date: 07/05/15 9:23:00 CDTNotes: (Same as: Zofran) MEDICATION WASTE Product Size: 4 mg Product Wasted: ___ mg No Longer Active 06/05/2015 [facility] Benicar 20 mg, 1 tab, Route: PO, Drug form: TAB, Daily, Start date: 06/05/15 9:00:00 CDT, Duration: 30 day, Stop date: 07/04/15 9:00:00 CDT No Longer Active 06/05/2015 [facility] Norvasc 5 mg, 1 tab, Route: PO, Drug form: TAB, Daily, Start date: 06/05/15 9:00:00 CDT, Duration: 30 day, Stop date: 07/04/15 9:00:00 CDTNotes: (Same as: Norvasc) Inactive 06/05/2015 [facility] Omeprazole 40 mg, Route: PO, Drug form: DRC, BID, Dosing Weight 62.727, kg, Start date: 06/05/15 9:00:00 CDT, Duration: 30 day, Stop date: 07/04/15 17:00:00 CDT No Longer Active 06/05/2015 [facility] Saline Flush 0.9% 10 ml, Route: IVP, Drug Form: INJ, Dosing Weight 62.727, kg, Q12H, Start date: 06/05/15 9:00:00 CDT, Duration: 30 day, Stop date: 07/04/15 21:00:00 CDTNotes: (Same as: BD Posiflush) No Longer Active 06/05/2015 [facility] Amlodipine 5 MG / Olmesartan medoxomil 20 MG Oral Tablet [Jen 5/20] 1 tab, Route: PO, Drug Form: TAB, Dosing Weight 62.727, kg, Daily, Start date: 06/05/15 9:00:00 CDT, Duration: 30 day, Stop date: 07/04/15 9:00:00 CDT No Longer Active 06/05/2015 [facility] pantoprazole 40 mg, 1 tab, Route: PO, Drug form: ECTAB, Before Breakfast, Dosing Weight 62.727, kg, Start date: 06/05/15 7:30:00 CDT, Duration: 30 day, Stop date: 07/04/15 7:30:00 CDTNotes: Tablet should not be c hewed or crushed. (Same as: Protonix) No Longer Active 06/05/2015 [facility] Amitriptyline 25 mg, PO, Bedtime, 0 Refill(s) Active 06/05/2015 [facility] Acetaminophen 300 MG / butalbital 50 MG / Caffeine 40 MG Oral Capsule [Fioricet] 1 cap, PO, TID, 0 Refill(s) Active 06/05/2015 [facility] Aspirin 81 MG Chewable Tablet 81 mg, 1 tab, Route: PO, Drug form: CHEWTAB, Daily, Dosing Weight 62.727, kg, Start date: 06/04/15 22:00:00 CDT, Duration: 30 day, Stop date: 07/04/15 9:00:00 CDTNotes: Take with food. No Longer Active 06/05/2015 [facility] Saline Flush 0.9% 10 ml, Route: IVP, Drug Form: INJ, Dosing Weight 62.727, kg, PRN, PRN Line Flush, Start date: 06/04/15 21:41:00 CDT, Duration: 30 day, Stop date: 07/04/15 21:40:00 CDTNotes: (Same as: BD Posiflush) No Longer Active 06/05/2015 [facility] Nitroglycerin 0.4 mg, 1 tab, Route: SL, Drug form: TAB, Q5Min, Dosing Weight 62.727, kg, PRN Chest Pain, Start date: 06/04/15 21:41:00 CDT, Duration: 3 doses or times, Stop date: Limited # of timesNotes: (Same as: Nitroquick, Nitrostat) "Do Not Crush" Sublingual tablet No Longer Active 06/05/2015 [facility] Sodium Chloride 0.154 MEQ/ML Injectable Solution 1,000 mL, Rate: 75 ml/hr, Infuse over: 13.3 hr, Route: IV, Dosing Weight 62.727 kg, Total Volume: 1,000, Start date: 06/04/15 21:41:00 CDT, Duration: 30 day, Stop date: 07/04/15 21:40:00 CDT No Longer Active 06/05/2015 [facility] Ceftriaxone 1 gm, Route: IVPB, Drug form: PDR/INJ, ONCE, Dosing Weight 62.727, kg, Priority: STAT, Start date: 06/04/15 19:45:00 CDT, Stop date: 06/04/15 19:45:00 CDT Inactive 06/05/2015 [facility] Morphine 2 mg, Route: IVP, Drug form: INJ, ONCE, Dosing Weight 62.727, kg, Priority: STAT, Start date: 06/04/15 18:34:00 CDT, Stop date: 06/04/15 18:34:00 CDT Inactive 06/04/2015 [facility] Saline Flush 0.9% 10 mL, Route: IVP, Drug Form: INJ, Dosing Weight 62.727, kg, PRN, PRN Line Flush, Start date: 06/04/15 16:46:00 CDT, Duration: 30 day, Stop date: 07/04/15 16:45:00 CDTNotes: (Same as: BD Posiflush) Inactive 06/04/2015 [facility] Sodium Chloride 0.154 MEQ/ML Injectable Solution 1,000 mL, 1,000 ml/hr, Infuse Over: 1 hr, Route: IV, 1,000, Drug form: INJ, ONCE, Priority: STAT, Dosing Weight 63.636 kg, Start date: 05/27/15 21:54:00 CDT, Duration: 1 doses or times, Stop date: 05/27/15 21:54:00 CDT Inactive 05/28/2015 [facility] Metronidazole 500 mg, 100 mL, Route: IVPB, Drug form: INJ, ONCE, Dosing Weight 63.636, kg, Priority: STAT, Start date: 05/27/15 21:54:00 CDT, Stop date: 05/27/15 21:54:00 CDTNotes: (Same as: Flagyl) Avoid alcohol. Inactive 05/28/2015 [facility] Benadryl 25 mg, 0.5 mL, Route: IVP, Drug form: INJ, ONCE, Dosing Weight 63.636, kg, Priority: STAT, Start date: 05/27/15 21:54:00 CDT, Stop date: 05/27/15 21:54:00 CDTNotes: (Same as: Benadryl) Inactive 05/28/2015 [facility] Sodium Chloride 0.154 MEQ/ML Injectable Solution 1,000 mL, Rate: 75 ml/hr, Infuse over: 13.3 hr, Route: IV, Dosing Weight 63.636 kg, Total Volume: 1,000, Priority: STAT, Start date: 05/27/15 20:21:00 CDT, Duration: 1 doses or times, Stop date: 05/28/15 9:38:00 CDT Inactive 05/28/2015 [facility] Benicar 20 mg, 1 tab, Route: PO, Drug form: TAB, Daily, Start date: 05/06/15 9:00:00, Duration: 30 day, Stop date: 06/04/15 9:00:00 No Longer Active 05/06/2015 [facility] Norvasc 5 mg, 1 tab, Route: PO, Drug form: TAB, Daily, Start date: 05/06/15 9:00:00, Duration: 30 day, Stop date: 06/04/15 9:00:00Notes: (Same as: Norvasc) No Longer Active 05/06/2015 [facility] Omeprazole 40 mg, Route: PO, Daily, Dosing Weight 63.636, kg, Start date: 05/06/15 9:00:00, Duration: 30 day, Stop date: 06/04/15 9:00:00 No Longer Active 05/06/2015 [facility] Aspirin 81 MG Enteric Coated Tablet 81 mg, 1 tab, Route: PO, Drug form: ECTAB, Daily, Dosing Weight 63.636, kg, Start date: 05/06/15 9:00:00, Duration: 30 day, Stop date: 06/04/15 9:00:00Notes: Do not crush or chew. (Same As: Ecotrin) No Longer Active 05/06/2015 [facility] Amlodipine 5 MG / Olmesartan medoxomil 20 MG Oral Tablet [Jen 07/05] 1 tab, Route: PO, Drug Form: TAB, Dosing Weight 63.636, kg, Daily, Start date: 05/06/15 9:00:00, Duration: 30 day, Stop date: 06/04/15 9:00:00 No Longer Active 05/06/2015 [facility] Simvastatin 20 mg, 1 tab, Route: PO, Drug form: TAB, Bedtime, Dosing Weight 63.636, kg, Start date: 05/05/15 21:00:00, Duration: 30 day, Stop date: 06/03/15 21:00:00Notes: (Same as: Zocor) Inactive 05/06/2015 [facility] Protonix 40 mg, 1 tab, Route: PO, Drug form: ECTAB, Before Dinner, Start date: 05/05/15 16:30:00, Duration: 30 day, Stop date: 06/03/15 16:30:00Notes: Tablet should not be chewed or crushed. (Same as: Protonix) Inactive 05/05/2015 [facility] omeprazole 40 mg oral delayed release capsule 40 mg=1 cap, PO, BID, take 1 tab twice daily x 14 days, then once daily before meals, # 60 tab, 0 Refill(s) Active 05/05/2015 [facility] temazepam 15 mg oral capsule 15 mg=1 cap, PO, Bedtime, PRN Sleep, X 30 day, # 30 cap, 0 Refill(s) Active 05/05/2015 [facility] Ibuprofen 800 mg, 1 tab, Route: PO, Drug form: TAB, TID, Dosing Weight 63.636, kg, PRN Pain Score 1-5, Start date: 05/05/15 11:50:00, Duration: 30 day, Stop date: 06/04/15 11:49:00Notes: (Same as: Motrin) "Do Not Crush" Take with food. Inactive 05/05/2015 [facility] Temazepam 15 mg, 1 cap, Route: PO, Drug form: CAP, Bedtime, Dosing Weight 63.636, kg, Start date: 05/04/15 23:41:00, Duration: 30 day, Stop date: 06/03/15 21:00:00Notes: (Same As: Restoril) No Longer Active 05/05/2015 [facility] Amlodipine 5 MG / Olmesartan medoxomil 20 MG Oral Tablet [Jen 5/20] 1 tab, PO, Daily, 0 Refill(s) Active 05/05/2015 [facility] Unknown Home Medication See Instructions, accuflora 2 caps po bid, Refill(s) 0 Active 05/05/2015 [facility] Ibuprofen 800 mg, PO, TID, PRN Pain Score 1-5, 0 Refill(s) Active 05/05/2015 [facility] acetaminophen-codeine #3 1 tab, PO, Q6H, PRN Pain Score 1-5, 0 Refill(s) Active 05/05/2015 [facility] temazepam 15 mg oral capsule 15 mg=1 cap, PO, Bedtime, PRN as needed for sleep, 0 Refill(s) No Longer Active 05/05/2015 [facility] Simvastatin 80 mg, PO, Bedtime, 0 Refill(s) Active 05/05/2015 [facility] Omeprazole 40 mg, PO, Daily, 0 Refill(s) No Longer Active 05/05/2015 [facility] Sodium Chloride 0.154 MEQ/ML Injectable Solution 1,000 mL, Rate: 75 ml/hr, Infuse over: 13.3 hr, Route: IV, Dosing Weight 63.636 kg, Total Volume: 1,000, Start date: 05/04/15 17:22:00, Duration: 30 day, Stop date: 06/03/15 17:21:00 No Longer Active 05/04/2015 [facility] Docusate 100 mg, 1 cap, Route: PO, Drug form: CAP, BID, Dosing Weight 63.636, kg, PRN Constipation, Start date: 05/04/15 17:22:00, Duration: 30 day, Stop date: 06/03/15 17:21:00Notes: (Same as: Colace) (Do Not Crush) No Longer Active 05/04/2015 [facility] Ondansetron 4 mg, 2 mL, Route: IVP, Drug form: INJ, Q6H, Dosing Weight 63.636, kg, PRN Nausea & Vomiting, Start date: 05/04/15 17:22:00, Duration: 30 day, Stop date: 06/03/15 17:21:00Notes: (Same as: Zofran) MEDICATION WASTE Product Size: 4 mg Product Wasted: ___ mg No Longer Active 05/04/2015 [facility] Morphine 2 mg, 1 mL, Route: IVP, Drug form: INJ, Q4H, Dosing Weight 63.636, kg, PRN Pain Score 7-10, Start date: 05/04/15 17:22:00, Duration: 30 day, Stop date: 06/03/15 17:21:00Notes: (Same as:MORPhine Sulfate) No Longer Active 05/04/2015 [facility] Acetaminophen 650 mg, 2 tab, Route: PO, Drug form: TAB, Q4H, Dosing Weight 63.636, kg, PRN Pain 1-3/Temp > 100.4 F, Start date: 05/04/15 17:22:00, Duration: 30 day, Stop date: 06/03/15 17:21:00Notes: Do not exceed 4 gm/day. (Same as: Tylenol) No Longer Active 05/04/2015 [facility] Acetaminophen 325 MG / Hydrocodone Bitartrate 5 MG Oral Tablet [[place] 5/325] 1 tab, Route: PO, Drug Form: TAB, Dosing Weight 63.636, kg, ONCE, STAT, Start date: 05/04/15 15:31:00, Stop date: 05/04/15 15:31:00Notes: (Same as: [place] 325/5) Do not exceed 4gm/day of acetaminophen. Inactive 05/04/2015 [facility] Ondansetron 4 mg, 2 mL, Route: IVP, Drug form: INJ, ONCE, Dosing Weight 63.636, kg, Priority: STAT, Start date: 05/04/15 14:17:00, Stop date: 05/04/15 14:17:00Notes: (Same as: Zofran) MEDICATION WASTE Product Size: 4 mg Product Wasted: ___ mg Inactive 05/04/2015 [facility] Morphine 2 mg, 1 mL, Route: IVP, Drug form: INJ, ONCE, Dosing Weight 63.636, kg, Priority: STAT, Start date: 05/04/15 14:17:00, Stop date: 05/04/15 14:17:00Notes: (Same as:MORPhine Sulfate) Inactive 05/04/2015 [facility] Sodium Chloride 0.154 MEQ/ML Injectable Solution 1,000 mL, 1,000 ml/hr, Infuse Over: 1 hr, Route: IV, 1,000, Drug form: INJ, ONCE, Priority: STAT, Dosing Weight 63.636 kg, Start date: 05/04/15 14:17:00, Duration: 1 doses or times, Stop date: 05/04/15 14:17:00 Inactive 05/04/2015 [facility] Saline Flush 0.9% 10 mL, Route: IVP, Drug Form: INJ, Dosing Weight 63.636, kg, PRN, PRN Line Flush, Start date: 05/04/15 14:17:00, Duration: 30 day, Stop date: 06/03/15 14:16:00Notes: (Same as: BD Posiflush) Inactive 05/04/2015 [facility] Ondansetron 4 mg, 2 mL, Route: IVP, Drug form: INJ, ONCE, Dosing Weight 63.636, kg, Priority: STAT, Start date: 05/04/15 13:38:00, Stop date: 05/04/15 13:38:00Notes: (Same as: Zofran) MEDICATION WASTE Product Size: 4 mg Product Wasted: ___ mg Inactive 05/04/2015 [facility] Sodium Chloride 0.154 MEQ/ML Injectable Solution 500 mL, 500 ml/hr, Infuse Over: 1 hr, Route: IV, 500, Drug form: INJ, ONCE, Priority: STAT, Dosing Weight 63.636 kg, Start date: 05/04/15 13:38:00, Duration: 1 doses or times, Stop date: 05/04/15 13:38:00 Inactive 05/04/2015 [facility] Acetaminophen 300 MG / Codeine Phosphate 30 MG Oral Tablet [Tylenol with Codeine #3] 1 tab, PO, Q6H, PRN Pain, X 5 day, # 20 tab, 0 Refill(s) Active 03/05/2015 [facility] Amoxicillin 875 MG / Clavulanate 125 MG Oral Tablet [Augmentin 875-mg] 875 mg=1 tab, PO, Q12H, X 10 day, # 20 tab, 0 Refill(s) Active 03/05/2015 [facility] Levalbuterol 0.21 MG/ML Inhalant Solution [Xopenex] 0.63 mg=3 ml, NEB, TID, PRN as needed for wheezing, # 24 ea, 0 Refill(s) Active 03/05/2015 [facility] Acetaminophen 325 MG / Hydrocodone Bitartrate 5 MG Oral Tablet 1 tab, Route: PO, Drug Form: TAB, Dosing Weight 77.273, kg, ONCE, STAT, Start date: 03/04/15 19:22:00, Stop date: 01/17/16 19:22:00 Inactive 03/05/2015 [facility] Labetalol 20 mg, Route: IVP, Drug form: INJ, ONCE, Dosing Weight 77.273, kg, Start date: 03/04/15 19:22:00, Stop date: 03/04/15 19:22:00 Inactive 03/05/2015 [facility] Ativan 1 mg, 0.5 mL, Route: IVP, Drug form: INJ, ONCE, Dosing Weight 77.273, kg, Priority: STAT, Start date: 03/04/15 16:49:00, Stop date: 03/04/15 16:49:00Notes: (Same as: Ativan) Inactive 03/04/2015 [facility] Saline Flush 0.9% 10 mL, Route: IVP, Drug Form: INJ, Dosing Weight 77.273, kg, PRN, PRN Line Flush, Start date: 03/04/15 16:49:00, Duration: 30 day, Stop date: 04/03/15 16:48:00Notes: (Same as: BD Posiflush) Inactive 03/04/2015 [facility] Methocarbamol 500 MG Oral Tablet [Robaxin] 500 mg=1 tab, PO, Q6H, PRN Spasms, X 7 day, # 28 tab, 0 Refill(s) Active 02/06/2015 [facility] {21 (Methylprednisolone 4 MG Oral Tablet [Medrol]) } Pack [Medrol Dosepak] See Instructions, PO, Take by mouth as directed on label., X 6 day, # 1 Pack, 0 Refill(s) Active 02/06/2015 [facility] Morphine 6 mg, Route: IM, Drug form: INJ, ONCE, Dosing Weight 70.455, kg, Priority: STAT, Start date: 02/06/15 12:57:00, Stop date: 02/06/15 12:57:00 Inactive 02/06/2015 [facility] Tylenol 650 mg, Route: PO, Drug form: TAB, ONCE, Dosing Weight 70.909, kg, Priority: STAT, Start date: 11/22/14 15:14:00, Stop date: 11/22/14 15:14:00 Inactive 11/22/2014 [facility] Azithromycin 5 Day Dose Pack 250 mg oral tablet See Instructions, Take 2 tablets by mouth the first day then 1 tablet by mouth days 2-5., X 5 day, # 6 tab, 0 Refill(s)Special Instructions: Take 2 tablets by mouth the first day then 1 tablet by mouth days 2-5. Active 11/09/2014 [facility] 200 ACTUAT Albuterol 0.09 MG/ACTUAT Metered Dose Inhaler 2 puff, INHALATION, QID, # 17 gm, 0 Refill(s) Active 11/09/2014 [facility] 120 ACTUAT mometasone furoate 0.05 MG/ACTUAT Nasal Inhaler [Nasonex] 2 spray, NASAL, Daily, PRN for allergy symptoms, # 17 gm, 0 Refill(s) Active 11/09/2014 [facility] Chlorpheniramine 4 MG / Codeine Phosphate 10 MG Oral Tablet 1 tab, PO, Q6H, # 30 tab, 0 Refill(s) Active 11/09/2014 [facility] prednisolone 3 MG/ML Oral Solution 15 mg=5 mL, PO, BID, X 7 day, # 70 mL, 0 Refill(s) Active 11/09/2014 [facility] Robitussin DM 10 mL, Route: PO, Drug Form: SYRP, Dosing Weight 72.727, kg, Q4H, Start date: 11/09/14 4:00:00, Duration: 30 day, Stop date: 12/09/14 0:00:00Notes: (dextromethorphan-guaifenesin 10-100mg/5ml 10 ml or al SOLN ud) (Same as: Robitussin DM) Inactive 11/09/2014 [facility] Solu-Medrol 125 mg, Route: IVP, ONCE, Dosing Weight 72.727, kg, Priority: STAT, Start date: 11/09/14 3:41:00, Stop date: 11/09/14 3:41:00 Inactive 11/09/2014 [facility] Benadryl 12.5 mg, Route: IVP, ONCE, Dosing Weight 72.727, kg, Priority: STAT, Start date: 11/09/14 3:31:00, Stop date: 11/09/14 3:31:00 Inactive 11/09/2014 [facility] Ketorolac 15 mg, Route: IVP, Drug form: INJ, ONCE, Dosing Weight 72.727, kg, Priority: STAT, Start date: 11/09/14 3:30:00, Stop date: 11/09/14 3:30:00 Inactive 11/09/2014 [facility] Albuterol 0.833 MG/ML / Ipratropium [place] 0.167 MG/ML Inhalant Solution 3 mL, Route: NEB, Dosing Weight 72.727, kg, ONCE, STAT, Start date: 11/09/14 3:28:00, Stop date: 11/09/14 3:28:00 Inactive 11/09/2014 [facility] Lidocaine 200 mg, 5 mL, Route: NEB, Drug Form: INJ, Dosing Weight 72.727, kg, ONCE, Start date: 11/09/14 3:28:00, Stop date: 11/09/14 3:28:00Notes: (Same as: Xylocaine) Inactive 11/09/2014 [facility] Sodium Chloride 0.154 MEQ/ML Injectable Solution 500 mL, 500 ml/hr, Infuse Over: 1 hr, Route: IV, ONCE, Priority: STAT, Dosing Weight 72.727 kg, Start date: 11/09/14 3:28:00, Duration: 1 doses or times, Stop date: 11/09/14 3:28:00 Inactive 11/09/2014 [facility] Morphine 2 mg, Route: IVP, Drug form: INJ, ONCE, Dosing Weight 72.727, kg, Priority: STAT, Start date: 11/09/14 3:28:00, Stop date: 11/09/14 3:28:00 Inactive 11/09/2014 [facility] tramadol hydrochloride 50 MG Oral Tablet 50 mg=1 tab, PO, Q6H, PRN Pain, X 10 day, # 40 tab, 0 Refill(s) Active 10/19/2014 [facility] Ondansetron 4 mg, Route: IVP, ONCE, Dosing Weight 72.727, kg, Priority: STAT, Start date: 10/19/14 7:55:00, Stop date: 10/19/14 7:55:00 Inactive 10/19/2014 [facility] Morphine 4 mg, Route: IVP, ONCE, Dosing Weight 72.727, kg, Priority: STAT, Start date: 10/19/14 7:55:00, Stop date: 10/19/14 7:55:00 Inactive 10/19/2014 [facility] Saline Flush 0.9% 10 mL, Route: IVP, Drug Form: INJ, Dosing Weight 72.727, kg, PRN, PRN Line Flush, Start date: 10/19/14 7:55:00, Duration: 30 day, Stop date: 11/18/14 7:54:00Notes: (Same as: BD Posiflush) Inactive 10/19/2014 [facility] Famotidine 20 MG Oral Tablet [Pepcid] 20 mg=1 tab, PO, BID, # 20 tab, 0 Refill(s) Active 09/02/2014 [facility] Diphenhydramine Hydrochloride 25 MG Oral Tablet [Benadryl] 25 mg=1 tab, PO, Q8H, # 24 tab, 0 Refill(s) Inactive 09/02/2014 [facility] Promethazine Hydrochloride 12.5 MG Oral Tablet [Phenergan] 12.5 mg=1 tab, PO, Q8H, PRN Nausea & Vomiting, X 7 day, # 21 tab, 0 Refill(s) Active 09/02/2014 [facility] Acetaminophen 300 MG / butalbital 50 MG / Caffeine 40 MG Oral Capsule [Fioricet] 1 cap, PO, Q4H, PRN PRN Headache, Do not exceed 6 capsules in 24 hours, X 10 day, # 30 cap, 0 Refill(s)Special Instructions: Do not exceed 6 capsules in 24 hours Active 09/02/2014 [facility] Dilaudid 0.5 mg, Route: IVP, ONCE, Dosing Weight 70.455, kg, Priority: STAT, Start date: 09/02/14 2:50:00, Stop date: 09/02/14 2:50:00 Inactive 09/02/2014 [facility] GI cocktail 30 mL, Route: PO, Dosing Weight 70.455, kg, ONCE, STAT, Start date: 09/02/14 2:49:00, Stop date: 09/02/14 2:49:00 Inactive 09/02/2014 [facility] Pepcid 20 mg, Route: IV, ONCE, Dosing Weight 70.455, kg, Start date: 09/02/14 2:49:00, Stop date: 09/02/14 2:49:00 Inactive 09/02/2014 [facility] Sodium Chloride 0.154 MEQ/ML Injectable Solution 500 mL, 500 ml/hr, Infuse Over: 1 hr, Route: IV, ONCE, Priority: STAT, Dosing Weight 70.455 kg, Start date: 09/02/14 2:49:00, Duration: 1 doses or times, Stop date: 09/02/14 2:49:00 Inactive 09/02/2014 [facility] Phenergan 12.5 mg, Route: IVPB, ONCE, Dosing Weight 70.455, kg, Priority: STAT, Start date: 09/02/14 2:49:00, Stop date: 09/02/14 2:49:00 Inactive 09/02/2014 [facility] 24 HR Nifedipine 30 MG Extended Release Tablet 30 mg, 1 tab, Route: PO, Drug form: ERTAB, ABXQ8H, Dosing Weight 71.273, kg, Start date: 08/17/14 9:00:00, Duration: 30 day, Stop date: 09/16/14 1:00:00Notes: (Same as: Procardia XL) "Do Not Crush" "Avoid grapefruit and grapefruit juice" Inactive 08/17/2014 [facility] nabumetone 500 mg, Route: PO, Drug form: TAB, BID, Dosing Weight 71.273, kg, Start date: 08/17/14 9:00:00, Duration: 30 day, Stop date: 09/15/14 17:00:00 Inactive 08/17/2014 [facility] metoprolol extended release 50 mg, 1 tab, Route: PO, Drug form: ERTAB, Daily, Start date: 08/17/14 9:00:00, Duration: 30 day, Stop date: 09/15/14 9:00:00Notes: (Same as: Toprol XL) May split tab, but do not crush. Inactive 08/17/2014 [facility] gabapentin 300 MG Oral Capsule 300 mg, 1 cap, Route: PO, Drug form: CAP, BID, Dosing Weight 71.273, kg, Start date: 08/17/14 9:00:00, Duration: 30 day, Stop date: 09/15/14 17:00:00Notes: (Same as: Neurontin) Inactive 08/17/2014 [facility] Zolpidem tartrate 5 MG Oral Tablet [Ambien] 5 mg=1 tab, PO, Bedtime, PRN for sleep, X 14 day, # 14 tab, 0 Refill(s) Active 08/17/2014 [facility] Aspirin 81 MG Enteric Coated Tablet 81 mg=1 tab, PO, Daily, # 120 tab, 11 Refill(s) Active 08/17/2014 [facility] tramadol hydrochloride 50 MG Oral Tablet 50 mg, 1 tab, Route: PO, Drug form: TAB, Q6H, Dosing Weight 71.273, kg, PRN Pain Score 4-6, Start date: 08/17/14 8:26:00, Duration: 30 day, Stop date: 09/16/14 8:25:00Notes: Not to exceed 400mg/day. (Same As: Ultram) Inactive 08/17/2014 [facility] Atropine 0.5 mg, 5 mL, Route: IVP, Drug form: INJ, ONCE, Dosing Weight 71.273, kg, PRN Bradycardia, Start date: 08/16/14 22:57:00, For symptomatic bradycardia heart rate less than 40 No Longer Active 08/17/2014 [facility] Nitroglycerin 0.4 MG Sublingual Tablet 0.4 mg, 1 tab, Route: SL, Drug form: TAB, Q5Min, Dosing Weight 71.273, kg, PRN Chest Pain, Start date: 08/16/14 22:57:00, Duration: 30 day, Stop date: 09/15/14 22:56:00Notes: (Same as:Nitroquick, Nitrostat) "Do Not Crush" Sublingual tablet No Longer Active 08/17/2014 [facility] Tylenol 650 mg, 2 tab, Route: PO, Drug form: TAB, Q6H, Dosing Weight 71.273, kg, PRN Pain Score 1-3, Start date: 08/16/14 20:20:00, Duration: 30 day, Stop date: 09/15/14 20:19:00Notes: Do not exceed 4 gm/day. (Same as: Tylenol) No Longer Active 08/17/2014 [facility] gabapentin 300 MG Oral Capsule 300 mg=1 cap, PO, BID, # 90 cap, 1 Refill(s) Active 08/17/2014 [facility] metoprolol 50 mg oral tablet, extended release 50 mg=1 tab, PO, Daily, # 90 tab, 0 Refill(s) Active 08/17/2014 [facility] tramadol hydrochloride 50 MG Oral Tablet 50 mg=1 tab, PO, Q6H, PRN Pain Score 4-6, 0 Refill(s) Active 08/17/2014 [facility] 24 HR Nifedipine 30 MG Extended Release Tablet 30 mg=1 tab, PO, ABXQ8H, 0 Refill(s) Active 08/17/2014 [facility] nabumetone 500 mg oral tablet 500 mg=1 tab, PO, BID, 0 Refill(s) Active 08/17/2014 [facility] Aspirin 325 MG Oral Tablet 325 mg, 1 tab, Route: PO, Drug form: TAB, Daily, Dosing Weight 73.636, kg, Start date: 08/16/14 20:02:00, Duration: 30 day, Stop date: 09/15/14 9:00:00Notes: Take with food. No Longer Active 08/17/2014 [facility] Ambien 5 mg, 1 tab, Route: PO, Drug form: TAB, Bedtime, Dosing Weight 71.273, kg, PRN Insomnia, Start date: 08/16/14 19:55:00, Duration: 30 day, Stop date: 09/15/14 19:54:00Notes: (Same As: Ambien) No Longer Active 08/17/2014 [facility] Acetaminophen 300 MG / butalbital 50 MG / Caffeine 40 MG Oral Capsule [Fioricet] 1 cap, PO, Q4H, PRN PRN Headache, Do not exceed 6 capsules in 24 hours, X 2 day, # 12 cap, 0 Refill(s)Special Instructions: Do not exceed 6 capsules in 24 hours No Longer Active 08/14/2014 [facility] Benadryl 12.5 mg, Route: IVP, ONCE, Dosing Weight 73.636, kg, Priority: STAT, Start date: 08/14/14 12:33:00, Stop date: 08/14/14 12:33:00 Inactive 08/14/2014 [facility] Reglan 20 mg, Route: IVP, Drug form: INJ, ONCE, Dosing Weight 73.636, kg, Priority: STAT, Start date: 08/14/14 12:32:00, Stop date: 08/14/14 12:32:00 Inactive 08/14/2014 [facility] tramadol hydrochloride 50 MG Oral Tablet 50 mg=1 tab, PO, Q6H, Pain Score 7-10, # 12 tab, 0 Refill(s) Active 05/05/2014 [facility] Dilaudid 0.5 mg, 0.5 mL, Route: IVP, Drug form: INJ, ONCE, Dosing Weight 72.727, kg, Priority: STAT, Start date: 05/05/14 7:09:00, Stop date: 05/05/14 7:09:00 Inactive 05/05/2014 [facility] Zofran 4 mg, 2 mL, Route: IVP, Drug form: INJ, ONCE, Dosing Weight 72.727, kg, Priority: STAT, Start date: 05/05/14 7:09:00, Stop date: 05/05/14 7:09:00Notes: (Same as: Zofran) Inactive 05/05/2014 [facility] Sodium Chloride 0.154 MEQ/ML Injectable Solution 1,000 mL, 1,000 ml/hr, Infuse Over: 1 hr, Route: IV, 1,000, Drug form: INJ, ONCE, Priority: STAT, Dosing Weight 72.727 kg, Start date: 05/05/14 7:09:00, Duration: 1 doses or times, Stop date: 05/05/14 7:09:00 Inactive 05/05/2014 [facility] tramadol hydrochloride 50 MG Oral Tablet [Ultram] 100 mg=2 tab, PO, Q6H, pain, # 20 tab, 0 Refill(s) Active 11/16/2013 [facility] Acetaminophen 325 MG / Hydrocodone Bitartrate 7.5 MG Oral Tablet [[place] 7.5/325] 1 tab, Route: PO, Drug Form: TAB, Dosing Weight 78.182, kg, ONCE, STAT, Start date: 11/16/13 10:35:00, Stop date: 11/16/13 10:35:00 Inactive 11/16/2013 [facility] Ondansetron 4 MG Disintegrating Tablet [Zofran] 4 mg=1 tab, PO, TID, as needed for nausea/vomiting, Dissolve tab under tongue, # 10 tab, 0 Refill(s)Special Instructions: Dissolve tab under tongue Active 10/20/2013 [facility] Acetaminophen 325 MG / Hydrocodone Bitartrate 5 MG Oral Tablet [[place] 5/325] 1 tab, PO, Q4-6H, as needed for pain, # 30 tab, 0 Refill(s) Active 10/20/2013 [facility] Ketorolac 30 mg, Route: IVP, Drug form: INJ, ONCE, Dosing Weight 71.591, kg, Priority: STAT, Start date: 10/20/13 1:54:00, Stop date: 10/20/13 1:54:00 Inactive 10/20/2013 [facility] Zofran 4 mg, 2 mL, Route: IVP, Drug form: INJ, ONCE, Dosing Weight 71.591, kg, Priority: STAT, Start date: 10/20/13 0:21:00, Stop date: 10/20/13 0:21:00Notes: (Same as: Zofran) Inactive 10/20/2013 [facility] Sodium Chloride 0.154 MEQ/ML Injectable Solution 500 mL, 500 ml/hr, Infuse Over: 1 hr, Route: IV, 500, Drug form: INJ, ONCE, Priority: STAT, Dosing Weight 71.591 kg, Start date: 10/20/13 0:20:00, Duration: 1 doses or times, Stop date: 10/20/13 0:20:00 Inactive 10/20/2013 [facility] Phenergan 25 mg rectal suppository 1 supp, [place], Q6H, PRN, 9 supp, Nausea & Vomiting, Substitution Allowed [place] Active [facility] 02/07/2012 [facility] Phenergan 25 mg oral tablet 25 mg, 1 tab, PO, Q4H, PRN, 15 tab, Nausea, Substitution Allowed PO Active [facility] 02/07/2012 [facility] Esgic 325 mg-50 mg-40 mg oral tablet 2 tab, PO, Q6H, PRN, 30 tab, Pain, Substitution Allowed, Maintenance, TAB PO Active [facility] 02/07/2012 [facility] Esgic 2 tab, Route: PO, Drug Form: TAB, Dosing Weight 72.727, kg, ONCE, Start date: 02/06/12 20:14:00, Stop date: 02/06/12 20:14:00 PO No Longer Active [facility] 02/07/2012 [facility] diphenhydrAMINE 12.5 mg, 0.25 mL, Route: IVP, Drug form: INJ, ONCE, Dosing Weight 72.727, kg, Priority: STAT, Start date: 02/06/12 20:14:00, Stop date: 02/06/12 20:14:00 IVP No Longer Active [facility] 02/07/2012 [facility] metoclopramide 10 mg, 2 mL, Route: IVP, Drug form: INJ, ONCE, Dosing Weight 72.727, kg, Priority: STAT, Start date: 02/06/12 20:14:00, Stop date: 02/06/12 20:14:00 IVP No Longer Active [facility] 02/07/2012 [facility] Sodium Chloride 0.9% (Bolus) IV 500 mL, 500 ml/hr, Route: IV, Drug Form: INJ, Dosing Weight 72.727, kg, ONCE, Bolus Dose - infuse over 1 hr, STAT, Start date: 02/06/12 20:13:00, Stop date: 02/06/12 20:13:00 IV No Longer Active [facility] 02/07/2012 [facility] ondansetron 4 mg, 2 mL, Route: IVP, Drug form: INJ, ONCE, kg, Priority: STAT, Start date: 10/08/11 12:59:00, Stop date: 10/08/11 12:59:00 IVP No Longer Active [facility] 10/08/2011 [facility] Sodium Chloride 0.9% (Bolus) IV 1,000 mL 1,000 mL, Rate: 1,000 ml/hr, Infuse over: 1 hr, Route: IV, Dosing Weight 81.8 kg, Total Volume: 1,000, Bolus Dose, Priority: STAT, Start date: 10/08/11 12:59:00, Duration: 1 doses or times, Stop date: 10/08/11 13:58:00 IV No Longer Active [facility] 10/08/2011 [facility] Allergies, Adverse Reactions, Alerts Substance Category Reaction Severity Reaction type Status Date Reported Comments Source Immunizations Immunization Date Given Site Status Last Updated Comments Source pneumococcal 13-valent vaccine 10/30/2015 Left Deltoid completed Jerardo [facility] pneumococcal 13-valent vaccine 10/30/2015 Left Deltoid completed Jerardo [facility] influenza virus vaccine, inactivated<sup>1</sup> 10/27/2013 completed [facility] Result Comment: done high dose. Migrated from OBS ; Data migrated from [facility] [employer] on 08/30/2014. [facility] influenza virus vaccine, inactivated<sup>2</sup> 10/27/2013 Left Deltoid completed [facility] Result Comment: fluzone high dose [[id number]]. Migrated from OBS ; Data migrated from [employer] on 08/30/2014. [facility] pneumococcal 23-valent vaccine<sup>3</sup> 07/25/2011 completed GE Result Comment: historical. Migrated from OBS ; Data migrated from [employer] on 08/30/2014. [facility] Results Order Name Results Value Reference Range Date Interpretation Comments Source Spine thoracic 2 views DX Spine thoracic 2 views DX Patient Name: RAMEZ SPRAGUE : 1940; Age: 77 years y/o Female MR: [id number] * THORACIC SPINE, 2 views HISTORY: - M54.6 Pain in thoracic spine TECHNIQUE: Frontal and lateral radiographs of the thoracic spine were obtained. FINDINGS: There is slight thoracic scoliosis. The upper curve is convex to the right centered at T4-T5. The lower curve is convex to the left centered at T10. There is otherwise normal alignment and kyphosis of the thoracic spine. The vertebral bodies are normal in height. There are no compression deformities or destructive lesions. There is no evidence of fracture or acute change. There is minimal degenerative change in the upper -- mid thoracic region at approximately C4-C6. There is slight disc space narrowing and minimal osteophyte formation. There are no other significant degenerative changes. IMPRESSION: 1. Significant abnormalities are seen involving the thoracic spine. There is minimal thoracic scoliosis which could even be positional. There are minimal degenerative changes in the upper -- mid thoracic region. SL: [id number] 03/30/2018 - - Read by: Nahun Zelaya MD Dictated Date/time: 03/30/18 15:46 Electronically Signed by: Nahun Zelaya MD 03/30/18 15:48 FINAL REPORT [facility] Spine lumbar 2 or 3 views DX Spine lumbar 2 or 3 views DX EXAM: Lumbar spine HISTORY: Low back pain COMPARISON: CT abdomen and pelvis 02-01 TECHNIQUE: 3 images FINDINGS: Mild-moderate dextroscoliosis with asymmetric degenerative disc space narrowing and marginal osteophytes L2-L3, L3-L4, L4-L5 and L5-S1. Minimal anterolisthesis of L4 in relation to L5. Generalized osteopenia. No appreciable compression fracture. Diffuse facet arthrosis with neuroforaminal stenoses L3-L4, and L5-S1. IMPRESSION: Mild scoliosis and moderate spondylosis lumbar spine. SL TVU 03/30/2018 - - Read by: Epifanio Bright MD Dictated Date/time: 03/30/18 21:18 Electronically Signed by: Epifanio Bright MD 03/30/18 21:22 FINAL REPORT [facility] Chest 2 views DX Chest 2 views DX EXAM: Chest 2 views DX DATE: 10/22/2017 7:51 PM CDT INDICATION: - cough, fever COMPARISON: 01/24/2017. IMPRESSION: Stable cardiac silhouette and mediastinum. No focal consolidation, significant pleural effusion or pneumothorax. Mild thoracic spondylosis. : [id number] 10/22/2017 - - Read by: Alfredo Pelayo MD Dictated Date/time: 10/22/17 20:46 Electronically Signed by: Alfredo Pelayo MD 10/22/17 20:47 FINAL REPORT [facility] CARDIAC ENZYMES CK MB Index 1.7 0.0 - 2.5 01/25/2017 [facility] CARDIAC ENZYMES Total CK 63 unit/L 12 - 191 01/25/2017 [facility] CARDIAC ENZYMES CK MB 1.1 ng/mL 0.5 - 3.6 01/25/2017 [facility] CARDIAC ENZYMES Troponin-I 0.05 ng/mL 0.00 - 0.40 01/25/2017 [facility] CHEM PANEL eGFR 90 mL/min/1.73m2 01/25/2017 Result Comment: The eGFR is calculated using the CKD-EPI formula. In most young, healthy individuals the eGFR will be >90 mL/min/1.73m2. The eGFR declines with age. An eGFR of 60-89 may be normal in some populations, particularly the elderly, for whom the CKD-EPI formula has not been extensively validated. Use of the eGFR is not recommended in the following populations: Individuals with unstable creatinine concentrations, including patients and those with serious co-morbid conditions. Patients with extremes in muscle mass or diet. The data above are obtained from the National Kidney Disease Education Program (NKDEP) which additionally recommends that when the eGFR is used in patients with extremes of body mass index for purposes of drug dosing, the eGFR should be multiplied by the estimated BMI. [facility] CHEM PANEL A/G Ratio 1.0 0.7 - 1.6 01/25/2017 [facility] CHEM PANEL B/C Ratio 16 6 - 25 01/25/2017 [facility] CHEM PANEL Globulin 3.7 g/dL 2.7 - 4.2 01/25/2017 [facility] CHEM PANEL Calcium Lvl 8.4 mg/dL 8.5 - 10.5 01/25/2017 [facility] CHEM PANEL Total Protein 7.5 g/dL 6.4 - 8.4 01/25/2017 [facility] CHEM PANEL Albumin Lvl 3.8 g/dL 3.5 - 5.0 01/25/2017 [facility] CHEM PANEL Potassium Lvl 3.5 meq/L 3.5 - 5.1 01/25/2017 [facility] CHEM PANEL Chloride Lvl 100 meq/L 95 - 109 01/25/2017 [facility] CHEM PANEL Sodium Lvl 135 meq/L 135 - 145 01/25/2017 [facility] CHEM PANEL CO2 24 meq/L 24 - 32 01/25/2017 [facility] CHEM PANEL AST 13 unit/L 0 - 37 01/25/2017 [facility] CHEM PANEL Alk Phos 103 unit/L 39 - 136 01/25/2017 [facility] CHEM PANEL Bili Total 0.2 mg/dL 0.2 - 1.3 01/25/2017 [facility] CHEM PANEL ALT 17 unit/L 0 - 65 01/25/2017 [facility] CHEM PANEL Creatinine Lvl 0.61 mg/dL 0.50 - 1.40 01/25/2017 [facility] CHEM PANEL BUN 10 mg/dL 7 - 22 01/25/2017 [facility] CHEM PANEL Glucose Lvl 87 mg/dL 70 - 99 01/25/2017 [facility] CHEM PANEL AGAP 14.5 meq/L 10.0 - 20.0 01/25/2017 [facility] HEMATOLOGY Basophils 1.1 % 0.0 - 1.0 01/25/2017 [facility] HEMATOLOGY Eosinophils 4.2 % 0.0 - 4.0 01/25/2017 [facility] HEMATOLOGY Monocytes 8.5 % 2.0 - 12.0 01/25/2017 [facility] HEMATOLOGY Lymphocytes 36.9 % 20.0 - 40.0 01/25/2017 [facility] HEMATOLOGY Lymphocytes # 3.4 K/CMM 1.0 - 5.5 01/25/2017 [facility] HEMATOLOGY Segs-Bands # 4.5 K/CMM 1.5 - 8.1 01/25/2017 [facility] HEMATOLOGY Segs 49.3 % 45.0 - 75.0 01/25/2017 [facility] HEMATOLOGY Eosinophils # 0.4 K/CMM 0.0 - 0.5 01/25/2017 [facility] HEMATOLOGY Monocytes # 0.8 K/CMM 0.0 - 0.8 01/25/2017 [facility] HEMATOLOGY Basophils # 0.1 K/CMM 0.0 - 0.2 01/25/2017 [facility] HEMATOLOGY MCV 84.2 fL 80.0 - 98.0 01/25/2017 [facility] MCH 28.5 pg 27.0 - 31.0 01/25/2017 [facility] MCHC 33.8 g/dL 32.0 - 36.0 01/25/2017 [facility] HEMATOLOGY RDW 14.2 % 11.5 - 14.5 01/25/2017 [facility] HEMATOLOGY Platelet 297 K/CMM 133 - 450 01/25/2017 [facility] HEMATOLOGY MPV 7.9 fL 7.4 - 10.4 01/25/2017 [facility] Hct 37.8 % 36.0 - 48.0 01/25/2017 [facility] WBC 9.2 K/CMM 3.7 - 10.4 01/25/2017 [facility] HEMATOLOGY RBC 4.49 M/CMM 4.20 - 5.40 01/25/2017 [facility] Hgb 12.8 g/dL 12.0 - 16.0 01/25/2017 [facility] URINE AND STOOL UA Sq Epi Occasional /LPF Few /LPF 01/25/2017 [facility] URINE AND STOOL UA Leuk Est Small *ABN* (01/25/17 1:19 AM) Negative 01/25/2017 [facility] URINE AND STOOL UA RBC 2 /HPF 0 - 2 01/25/2017 [facility] URINE AND STOOL UA WBC 4 /HPF 0 - 5 01/25/2017 [facility] URINE AND STOOL UA Nitrite Negative (01/25/17 1:19 AM) Negative 01/25/2017 [facility] URINE AND STOOL UA Blood Negative (01/25/17 1:19 AM) Negative 01/25/2017 [facility] URINE AND STOOL UA Hyal Cast 1 /LPF 0 - 2 01/25/2017 [facility] URINE AND STOOL UA Glucose Negative mg/dL Negative mg/dL 01/25/2017 [facility] URINE AND STOOL UA Bili Negative *NA* (01/25/17 1:19 AM) Negative 01/25/2017 [facility] URINE AND STOOL UA Ketones Negative mg/dL Negative mg/dL 01/25/2017 [facility] URINE AND STOOL UA Urobilinogen <=1.0 mg/dL 0.1 - 1.0 01/25/2017 [facility] URINE AND STOOL UA Color Ltyellow 01/25/2017 [facility] URINE AND STOOL UA Protein Negative mg/dL Negative mg/dL 01/25/2017 [facility] URINE AND STOOL UA Turbidity Clear (01/25/17 1:19 AM) Clear 01/25/2017 [facility] URINE AND STOOL UA pH 6.0 5.0 - 8.0 01/25/2017 [facility] URINE AND STOOL UA Spec Grav 1.013 <=1.030 01/25/2017 [facility] Chest 2 views DX Chest 2 views DX Clinical Indication: - upper back pain radiating down left arm. Comparison: 09/01/2016 TECHNIQUE: Frontal and lateral chest radiographs were performed. (2 views) FINDINGS: LUNGS: Normal lung volumes. No interstitial or airspace opacities. No pleural effusions or pneumothorax. HEART AND MEDIASTINUM: The heart is normal in size. The trachea is in the midline. The bilateral josue are unremarkable. OSSEOUS STRUCTURES: No acute abnormality seen. IMPRESSION: No acute cardiopulmonary disease. SL: [id number] 01/24/2017 - - Read by: Tg Ellis MD Dictated Date/time: 01/24/17 21:05 Electronically Signed by: Tg Ellis MD 01/24/17 21:06 FINAL REPORT [facility] Spine cervical 2 or 3 view DX Spine cervical 2 or 3 view DX Procedure. Cervical Spine Radiographs. Clinical Indication: Neck pain with radiculopathy down the left arm. Comparison: None. FINDINGS: The 3 views of the cervical spine show degenerative change from C5 through C7 including narrowing of the intervertebral disc spaces, marginal osteophyte formation and facet joint hypertrophy. No acute displaced fracture or subluxation is observed and no prevertebral soft tissue swelling is identified. IMPRESSION: 1. Degenerative change. SL:[id number] 01/24/2017 - - Read by: Will Azar MD Dictated Date/time: 01/24/17 21:12 Electronically Signed by: Will Azar MD 01/24/17 21:13 FINAL REPORT [facility] URINE AND STOOL UA Hyal Cast 1 /LPF 0 - 2 01/17/2017 [facility] URINE AND STOOL UA Urobilinogen <=1.0 mg/dL 0.1 - 1.0 01/17/2017 [facility] URINE AND STOOL UA Color Ltyellow 01/17/2017 [facility] URINE AND STOOL UA RBC 2 /HPF 0 - 2 01/17/2017 [facility] URINE AND STOOL UA WBC 5 /HPF 0 - 5 01/17/2017 [facility] URINE AND STOOL UA Sq Epi Occasional /LPF Few /LPF 01/17/2017 [facility] URINE AND STOOL UA Mucus Few /LPF None Seen /LPF 01/17/2017 [facility] URINE AND STOOL UA Glucose Negative mg/dL Negative mg/dL 01/17/2017 [facility] URINE AND STOOL UA Leuk Est Moderate *ABN* (01/17/17 5:51 PM) Negative 01/17/2017 [facility] URINE AND STOOL UA Nitrite Positive *ABN* (01/17/17 5:51 PM) Negative 01/17/2017 [facility] URINE AND STOOL UA Protein Negative mg/dL Negative mg/dL 01/17/2017 [facility] URINE AND STOOL UA pH 6.0 5.0 - 8.0 01/17/2017 [facility] URINE AND STOOL UA Spec Grav 1.011 <=1.030 01/17/2017 [facility] URINE AND STOOL UA Turbidity Clear (01/17/17 5:51 PM) Clear 01/17/2017 [facility] URINE AND STOOL UA Blood Small *ABN* (01/17/17 5:51 PM) Negative 01/17/2017 [facility] URINE AND STOOL UA Bili Negative *NA* (01/17/17 5:51 PM) Negative 01/17/2017 [facility] URINE AND STOOL UA Ketones Negative mg/dL Negative mg/dL 01/17/2017 [facility] CHEM PANEL Lipase Lvl 66 unit/L 73 - 393 01/17/2017 [facility] CHEM PANEL Phosphorus 3.0 mg/dL 2.5 - 4.5 01/17/2017 [facility] CHEM PANEL Magnesium Lvl 2.4 mg/dL 1.8 - 2.4 01/17/2017 [facility] ELECTROLYTES AGAP 11.8 meq/L 10.0 - 20.0 01/17/2017 [facility] ELECTROLYTES B/C Ratio 14 6 - 25 01/17/2017 [facility] ELECTROLYTES Globulin 4.0 g/dL 2.7 - 4.2 01/17/2017 [facility] ELECTROLYTES A/G Ratio 1.0 0.7 - 1.6 01/17/2017 [facility] ELECTROLYTES eGFR 88 mL/min/1.73m2 01/17/2017 Result Comment: The eGFR is calculated using the CKD-EPI formula. In most young, healthy individuals the eGFR will be >90 mL/min/1.73m2. The eGFR declines with age. An eGFR of 60-89 may be normal in some populations, particularly the elderly, for whom the CKD-EPI formula has not been extensively validated. Use of the eGFR is not recommended in the following populations: Individuals with unstable creatinine concentrations, including patients and those with serious co-morbid conditions. Patients with extremes in muscle mass or diet. The data above are obtained from the National Kidney Disease Education Program (NKDEP) which additionally recommends that when the eGFR is used in patients with extremes of body mass index for purposes of drug dosing, the eGFR should be multiplied by the estimated BMI. [facility] ELECTROLYTES Albumin Lvl 3.8 g/dL 3.5 - 5.0 01/17/2017 [facility] ELECTROLYTES CO2 26 meq/L 24 - 32 01/17/2017 [facility] ELECTROLYTES Calcium Lvl 9.0 mg/dL 8.5 - 10.5 01/17/2017 [facility] ELECTROLYTES Bili Total 0.3 mg/dL 0.2 - 1.3 01/17/2017 [facility] ELECTROLYTES ALT 17 unit/L 0 - 65 01/17/2017 [facility] ELECTROLYTES Alk Phos 103 unit/L 39 - 136 01/17/2017 [facility] ELECTROLYTES AST 13 unit/L 0 - 37 01/17/2017 [facility] ELECTROLYTES Sodium Lvl 136 meq/L 135 - 145 01/17/2017 [facility] ELECTROLYTES Potassium Lvl 3.8 meq/L 3.5 - 5.1 01/17/2017 [facility] ELECTROLYTES Chloride Lvl 102 meq/L 95 - 109 01/17/2017 [facility] ELECTROLYTES BUN 9 mg/dL 7 - 22 01/17/2017 [facility] ELECTROLYTES Glucose Lvl 129 mg/dL 70 - 99 01/17/2017 [facility] ELECTROLYTES Creatinine Lvl 0.65 mg/dL 0.50 - 1.40 01/17/2017 [facility] Total Protein 7.8 g/dL 6.4 - 8.4 01/17/2017 [facility] HEMATOLOGY INR 0.95 0.85 - 1.17 01/17/2017 [facility] HEMATOLOGY PT 12.7 s 12.0 - 14.7 01/17/2017 [facility] HEMATOLOGY Platelet 263 K/CMM 133 - 450 01/17/2017 [facility] MPV 8.0 fL 7.4 - 10.4 01/17/2017 [facility] WBC 7.7 K/CMM 3.7 - 10.4 01/17/2017 [facility] RBC 4.67 M/CMM 4.20 - 5.40 01/17/2017 [facility] MCV 84.3 fL 80.0 - 98.0 01/17/2017 [facility] MCH 27.8 pg 27.0 - 31.0 01/17/2017 [facility] Hct 39.3 % 36.0 - 48.0 01/17/2017 [facility] Hgb 13.0 g/dL 12.0 - 16.0 01/17/2017 [facility] MCHC 32.9 g/dL 32.0 - 36.0 01/17/2017 [facility] RDW 14.3 % 11.5 - 14.5 01/17/2017 [facility] PTT 25.3 s 22.9 - 35.8 01/17/2017 [facility] Basophils # 0.1 K/CMM 0.0 - 0.2 01/17/2017 [facility] Eosinophils 2.3 % 0.0 - 4.0 01/17/2017 [facility] Basophils 0.7 % 0.0 - 1.0 01/17/2017 [facility] Lymphocytes # 1.6 K/CMM 1.0 - 5.5 01/17/2017 [facility] Segs-Bands # 5.4 K/CMM 1.5 - 8.1 01/17/2017 [facility] Eosinophils # 0.2 K/CMM 0.0 - 0.5 01/17/2017 [facility] Monocytes # 0.5 K/CMM 0.0 - 0.8 01/17/2017 [facility] Segs 69.9 % 45.0 - 75.0 01/17/2017 [facility] Lymphocytes 21.1 % 20.0 - 40.0 01/17/2017 [facility] Monocytes 6.0 % 2.0 - 12.0 01/17/2017 [facility] ED Abdomen/Pelvis IV contrast only CT ED Abdomen/Pelvis IV contrast only CT EXAM: CT ABDOMEN AND PELVIS WITH CONTRAST DATE: 01/17/2017 3:36 PM FERMENTER INDICATION: Abdominal pain. COMPARISON: 12/12/2016. TECHNIQUE: Helical CT imaging of the abdomen and pelvis performed from lung bases through the lesser trochanters following the administration of intravenous contrast. Axial, sagittal and coronal multiplanar reconstructions provided. IV contrast: [address] Radiation Dose: JNX=0632.82 mGy-cm FINDINGS: LOWER CHEST: There is redemonstration of chronic interstitial scarring within the lung bases. The heart is not enlarged, however aortic root and coronary artery calcifications are present. LIVER: Multiple cysts are redemonstrated throughout the liver, measuring up to 8.5 cm within the right lobe. GALLBLADDER/BILIARY: Unremarkable. PANCREAS: Unremarkable SPLEEN: Few calcified granulomas. ADRENALS: Unremarkable KIDNEYS AND URETERS: Unremarkable BLADDER: Unremarkable STOMACH: A small hiatal hernia is present. BOWEL: The small bowel is normal in course and caliber without focal wall thickening or evidence for obstruction. There is diverticulosis of the colon without surrounding inflammatory change. Mild wall thickening of the descending and rectosigmoid colon is suspected, unchanged from prior exam and possibly due to underdistention. APPENDIX: The appendix is visualized and unremarkable. PELVIS: Hysterectomy. No pelvic masses are present. PERITONEUM: No ascites or free air. LYMPH NODES: Unremarkable. VASCULAR: Atherosclerotic calcification of the aorta and iliac arteries without aneurysmal dilatation or dissection. OSSEOUS STRUCTURES: Advanced degenerative changes of the lower lumbar spine with trace anterolisthesis at L4-L5. Moderate degenerative changes of the right hip. No acute osseous abnormalities present. SOFT TISSUES: Minimal inguinal hernias. IMPRESSION: 1. No acute abnormality within the abdomen or pelvis. 2. Diverticulosis of the colon without surrounding inflammatory change. 3. Multiple large hepatic cysts are stable in size from prior examination. 4. Small hiatal hernia. SL: [id number] 01/17/2017 - - Read by: Nichloas Laguna MD Dictated Date/time: 01/17/17 18:47 Electronically Signed by: Nicholas Laguna MD 01/17/17 18:54 FINAL REPORT [facility] URINE AND STOOL UA Urobilinogen <=1.0 mg/dL 0.1 - 1.0 12/12/2016 [facility] URINE AND STOOL UA Sq Epi Occasional /LPF Few /LPF 12/12/2016 [facility] URINE AND STOOL UA WBC null 0 - 5 12/12/2016 [facility] URINE AND STOOL UA RBC 3 /HPF 0 - 2 12/12/2016 [facility] URINE AND STOOL UA Leuk Est Negative (12/12/16 2:29 PM) Negative 12/12/2016 [facility] URINE AND STOOL UA Nitrite Positive *ABN* (12/12/16 2:29 PM) Negative 12/12/2016 [facility] URINE AND STOOL UA Bili Negative *NA* (12/12/16 2:29 PM) Negative 12/12/2016 [facility] URINE AND STOOL UA Ketones Negative mg/dL Negative mg/dL 12/12/2016 [facility] URINE AND STOOL UA Blood Moderate *ABN* (12/12/16 2:29 PM) Negative 12/12/2016 [facility] URINE AND STOOL UA Color Yellow *NA* (12/12/16 2:29 PM) Yellow 12/12/2016 [facility] URINE AND STOOL UA Turbidity Clear (12/12/16 2:29 PM) Clear 12/12/2016 [facility] URINE AND STOOL UA Glucose Negative mg/dL Negative mg/dL 12/12/2016 [facility] URINE AND STOOL UA Protein Negative mg/dL Negative mg/dL 12/12/2016 [facility] URINE AND STOOL UA pH 7.0 5.0 - 8.0 12/12/2016 [facility] URINE AND STOOL UA Spec Grav 1.013 <=1.030 12/12/2016 [facility] CARDIAC ENZYMES CK MB 1.4 ng/mL 0.5 - 3.6 12/12/2016 [facility] CARDIAC ENZYMES Total CK 60 unit/L 12 - 191 12/12/2016 [facility] CARDIAC ENZYMES Troponin-I 0.04 ng/mL 0.00 - 0.40 12/12/2016 [facility] CARDIAC ENZYMES CK MB Index 2.3 0.0 - 2.5 12/12/2016 [facility] CHEM PANEL eGFR 78 mL/min/1.73m2 12/12/2016 Result Comment: The eGFR is calculated using the CKD-EPI formula. In most young, healthy individuals the eGFR will be >90 mL/min/1.73m2. The eGFR declines with age. An eGFR of 60-89 may be normal in some populations, particularly the elderly, for whom the CKD-EPI formula has not been extensively validated. Use of the eGFR is not recommended in the following populations: Individuals with unstable creatinine concentrations, including patients and those with serious co-morbid conditions. Patients with extremes in muscle mass or diet. The data above are obtained from the National Kidney Disease Education Program (NKDEP) which additionally recommends that when the eGFR is used in patients with extremes of body mass index for purposes of drug dosing, the eGFR should be multiplied by the estimated BMI. [facility] CHEM PANEL Creatinine Lvl 0.76 mg/dL 0.50 - 1.40 12/12/2016 [facility] CHEM PANEL Albumin Lvl 3.5 g/dL 3.5 - 5.0 12/12/2016 [facility] CHEM PANEL Total Protein 7.9 g/dL 6.4 - 8.4 12/12/2016 [facility] CHEM PANEL B/C Ratio 13 6 - 25 12/12/2016 [facility] CHEM PANEL BUN 10 mg/dL 7 - 22 12/12/2016 [facility] CHEM PANEL Glucose Lvl 135 mg/dL 70 - 99 12/12/2016 [facility] CHEM PANEL Chloride Lvl 101 meq/L 95 - 109 12/12/2016 [facility] CHEM PANEL CO2 26 meq/L 24 - 32 12/12/2016 [facility] CHEM PANEL A/G Ratio 0.8 0.7 - 1.6 12/12/2016 [facility] CHEM PANEL Globulin 4.4 g/dL 2.7 - 4.2 12/12/2016 [facility] CHEM PANEL Sodium Lvl 136 meq/L 135 - 145 12/12/2016 [facility] CHEM PANEL Potassium Lvl 3.5 meq/L 3.5 - 5.1 12/12/2016 [facility] CHEM PANEL ALT 18 unit/L 0 - 65 12/12/2016 [facility] CHEM PANEL Calcium Lvl 8.5 mg/dL 8.5 - 10.5 12/12/2016 [facility] CHEM PANEL AGAP 12.5 meq/L 10.0 - 20.0 12/12/2016 [facility] CHEM PANEL Alk Phos 109 unit/L 39 - 136 12/12/2016 [facility] CHEM PANEL Bili Total 0.6 mg/dL 0.2 - 1.3 12/12/2016 [facility] CHEM PANEL AST 16 unit/L 0 - 37 12/12/2016 [facility] CHEM PANEL Lipase Lvl 60 unit/L 73 - 393 12/12/2016 [facility] CHEM PANEL Amylase Lvl 33 unit/L 25 - 115 12/12/2016 [facility] HEMATOLOGY PTT 29.1 s 22.9 - 35.8 12/12/2016 [facility] HEMATOLOGY MCHC 33.3 g/dL 32.0 - 36.0 12/12/2016 [facility] Platelet 312 K/CMM 133 - 450 12/12/2016 [facility] RDW 14.3 % 11.5 - 14.5 12/12/2016 [facility] MPV 8.0 fL 7.4 - 10.4 12/12/2016 [facility] MCV 83.9 fL 80.0 - 98.0 12/12/2016 [facility] Hct 39.8 % 36.0 - 48.0 12/12/2016 [facility] MCH 27.9 pg 27.0 - 31.0 12/12/2016 [facility] Hgb 13.2 g/dL 12.0 - 16.0 12/12/2016 [facility] RBC 4.74 M/CMM 4.20 - 5.40 12/12/2016 [facility] WBC 11.8 K/CMM 3.7 - 10.4 12/12/2016 [facility] PT 13.2 s 12.0 - 14.7 12/12/2016 [facility] INR 1.00 0.85 - 1.17 12/12/2016 [facility] Eosinophils # 0.1 K/CMM 0.0 - 0.5 12/12/2016 [facility] Basophils # 0.1 K/CMM 0.0 - 0.2 12/12/2016 [facility] Monocytes # 0.4 K/CMM 0.0 - 0.8 12/12/2016 [facility] Basophils 0.4 % 0.0 - 1.0 12/12/2016 [facility] Lymphocytes # 1.1 K/CMM 1.0 - 5.5 12/12/2016 [facility] Segs-Bands # 10.2 K/CMM 1.5 - 8.1 12/12/2016 [facility] Monocytes 3.1 % 2.0 - 12.0 12/12/2016 [facility] Eosinophils 0.9 % 0.0 - 4.0 12/12/2016 [facility] Lymphocytes 8.9 % 20.0 - 40.0 12/12/2016 [facility] Segs 86.7 % 45.0 - 75.0 12/12/2016 [facility] ED Abdomen/Pelvis IV contrast only CT ED Abdomen/Pelvis IV contrast only CT Clinical Indication: Lower abdominal pain. Comparison: CT chest, abdomen and pelvis 12/23/2015 TECHNIQUE: Helical imaging was performed diaphragm through the symphysis with multiplanar reformations obtained. IV CONTRAST: 100 mL Omnipaque 300 GI CONTRAST: None CT Radiation Dose DLP: 1918 mGy-cm. DLP means Dose Length Product, a radiation dose metric that does not report individual patient dose, but is a reference value related to the radiation output of the scanner used for this exam. FINDINGS: There are respiratory artifacts in the mid/lower abdomen, which limits evaluation of the small bowel and mesentery. LUNG BASES: The lung bases are clear. LIVER: Benign-appearing cystic lesions in the right lobe of the liver (the largest of which measures 6.2 x 7.8 cm) is unchanged compared to the CT performed on 12/23/2015. No mass effect or enhancing abnormality. GALLBLADDER: Unremarkable, without signs of dense gallstones. BILIARY: No intrahepatic or extrahepatic biliary dilatation. SPLEEN: The spleen enhances normally. Contains 2 calcified granuloma. PANCREAS: The pancreas enhances normally. ADRENAL GLANDS: The adrenal glands are normal. KIDNEYS and URETERS: The kidneys enhance symmetrically. No hydronephrosis. EG JUNCTION, STOMACH AND DUODENUM: Small hiatal hernia. Otherwise no abnormalities. SMALL BOWEL: The bowel is normal in caliber. COLON: Descending and sigmoid diverticulosis, without wall thickening or significant pericolonic fat infiltration to suggest an acute inflammatory process. APPENDIX: Not visualized. RETROPERITONEUM/PERITONEUM: There is no free fluid. No free air. LYMPH NODES: No adenopathy. VASCULATURE: Abdominal aorta is normal in caliber and contains atherosclerotic plaque. BLADDER: The urinary bladder has a normal appearance given its degree of distention. REPRODUCTIVE ORGANS: Prior hysterectomy. No adnexal abnormalities. MUSCULOSKELETAL: Change change of the lumbar spine most pronounced at L4-L5 with there is 5 mm anterolisthesis, likely secondary to degenerative facet hypertrophy. IMPRESSION: No acute obstructive or inflammatory process in the abdomen and pelvis, despite respiratory artifacts. SL: [id number] 12/12/2016 - - Read by: Red Duncan MD Dictated Date/time: 12/12/16 18:16 Electronically Signed by: Red Duncan MD 12/12/16 18:30 FINAL REPORT [facility] URINE AND STOOL UA Color Ltyellow 09/01/2016 [facility] URINE AND STOOL UA Urobilinogen <=1.0 mg/dL 0.1 - 1.0 09/01/2016 [facility] URINE AND STOOL UA Sq Epi None Seen 09/01/2016 [facility] URINE AND STOOL UA Turbidity Clear (09/01/16 4:18 PM) Clear 09/01/2016 [facility] URINE AND STOOL UA Spec Grav 1.012 <=1.030 09/01/2016 [facility] URINE AND STOOL UA Ketones Negative mg/dL Negative mg/dL 09/01/2016 [facility] URINE AND STOOL UA Nitrite Negative (09/01/16 4:18 PM) Negative 09/01/2016 [facility] URINE AND STOOL UA Leuk Est Negative (09/01/16 4:18 PM) Negative 09/01/2016 [facility] URINE AND STOOL UA WBC 1 /HPF 0 - 5 09/01/2016 [facility] URINE AND STOOL UA Mucus Few /LPF None Seen /LPF 09/01/2016 [facility] URINE AND STOOL UA pH 7.0 5.0 - 8.0 09/01/2016 [facility] URINE AND STOOL UA Blood Negative (09/01/16 4:18 PM) Negative 09/01/2016 [facility] URINE AND STOOL UA Bili Negative *NA* (09/01/16 4:18 PM) Negative 09/01/2016 [facility] URINE AND STOOL UA Glucose Negative mg/dL Negative mg/dL 09/01/2016 [facility] URINE AND STOOL UA Protein Negative mg/dL Negative mg/dL 09/01/2016 [facility] Brain wo contrast CT Brain wo contrast CT Study: Brain wo contrast CT 09/01/2016 8:17 PM CDT Patient Name: RAMEZ SPRAGUE MR: [id number] : 1940; Age: 76 years y/o Female Ordering Physician: Audrey Bartholomew DO Clinical Indication: CT DLP-859.11, LAI - headache Comparison: 09/14/2015. TECHNIQUE: CT images were obtained from the foramen magnum to the vertex without the use of intravenous contrast on a multidetector CT. Coronal and sagittal reformatted images were prepared. FINDINGS: BRAIN PARENCHYMA: 1. Mild to moderate diffuse atrophy. 2. No evidence of acute intracranial hemorrhage, mass lesion, mass effect, midline shift, or extra-axial fluid collection. VENTRICLES: The lateral ventricles, third ventricle, fourth ventricle, and basilar cisterns are appropriate for degree of atrophy present. PARANASAL SINUSES: The visualized portions of the paranasal sinuses are clear. MASTOIDS: Clear. ORBITS AND SOFT TISSUES: The visualized portions of the orbits are normal. SKULL: No acute fracture or suspicious osseous lesion. IMPRESSION: 1. Mild to moderate diffuse atrophy. SL: HUGO 09/01/2016 - - Read by: Giorgi Restrepo MD Dictated Date/time: 09/01/16 20:46 Electronically Signed by: Giorgi Restrepo MD 09/01/16 20:49 FINAL REPORT [facility] CARDIAC ENZYMES CK MB Index 1.3 0.0 - 2.5 09/01/2016 [facility] CARDIAC ENZYMES Total CK 92 unit/L 12 - 191 09/01/2016 [facility] CARDIAC ENZYMES CK MB 1.2 ng/mL 0.5 - 3.6 09/01/2016 [facility] CARDIAC ENZYMES Troponin-I 0.02 ng/mL 0.00 - 0.40 09/01/2016 [facility] CARDIAC ENZYMES BNP 127 pg/mL <=100 pg/mL 09/01/2016 [facility] CHEM PANEL Lipase Lvl 54 unit/L 73 - 393 09/01/2016 [facility] CHEM PANEL eGFR 88 mL/min/1.73m2 09/01/2016 Result Comment: The eGFR is calculated using the CKD-EPI formula. In most young, healthy individuals the eGFR will be >90 mL/min/1.73m2. The eGFR declines with age. An eGFR of 60-89 may be normal in some populations, particularly the elderly, for whom the CKD-EPI formula has not been extensively validated. Use of the eGFR is not recommended in the following populations: Individuals with unstable creatinine concentrations, including patients and those with serious co-morbid conditions. Patients with extremes in muscle mass or diet. The data above are obtained from the National Kidney Disease Education Program (NKDEP) which additionally recommends that when the eGFR is used in patients with extremes of body mass index for purposes of drug dosing, the eGFR should be multiplied by the estimated BMI. [facility] CHEM PANEL A/G Ratio 1.0 0.7 - 1.6 09/01/2016 [facility] CHEM PANEL Globulin 3.8 g/dL 2.7 - 4.2 09/01/2016 [facility] CHEM PANEL Alk Phos 90 unit/L 39 - 136 09/01/2016 [facility] CHEM PANEL AST 17 unit/L 0 - 37 09/01/2016 [facility] CHEM PANEL Bili Total 0.4 mg/dL 0.2 - 1.3 09/01/2016 [facility] CHEM PANEL AGAP 10.7 meq/L 10.0 - 20.0 09/01/2016 [facility] CHEM PANEL B/C Ratio 11 6 - 25 09/01/2016 [facility] CHEM PANEL CO2 29 meq/L 24 - 32 09/01/2016 [facility] CHEM PANEL Calcium Lvl 9.0 mg/dL 8.5 - 10.5 09/01/2016 [facility] CHEM PANEL ALT 20 unit/L 0 - 65 09/01/2016 [facility] CHEM PANEL Total Protein 7.5 g/dL 6.4 - 8.4 09/01/2016 [facility] CHEM PANEL Albumin Lvl 3.7 g/dL 3.5 - 5.0 09/01/2016 [facility] CHEM PANEL Glucose Lvl 118 mg/dL 70 - 99 09/01/2016 [facility] CHEM PANEL BUN 7 mg/dL 7 - 22 09/01/2016 [facility] CHEM PANEL Chloride Lvl 100 meq/L 95 - 109 09/01/2016 [facility] CHEM PANEL Creatinine Lvl 0.64 mg/dL 0.50 - 1.40 09/01/2016 [facility] CHEM PANEL Sodium Lvl 136 meq/L 135 - 145 09/01/2016 [facility] CHEM PANEL Potassium Lvl 3.7 meq/L 3.5 - 5.1 09/01/2016 [facility] CHEM PANEL Phosphorus 3.0 mg/dL 2.5 - 4.5 09/01/2016 [facility] CHEM PANEL Magnesium Lvl 2.4 mg/dL 1.8 - 2.4 09/01/2016 [facility] HEMATOLOGY Eosinophils 0.6 % 0.0 - 4.0 09/01/2016 [facility] HEMATOLOGY Monocytes 6.2 % 2.0 - 12.0 09/01/2016 [facility] HEMATOLOGY Segs-Bands # 6.8 K/CMM 1.5 - 8.1 09/01/2016 [facility] HEMATOLOGY Basophils 1.0 % 0.0 - 1.0 09/01/2016 [facility] HEMATOLOGY Eosinophils # 0.1 K/CMM 0.0 - 0.5 09/01/2016 [facility] HEMATOLOGY Monocytes # 0.6 K/CMM 0.0 - 0.8 09/01/2016 [facility] HEMATOLOGY Lymphocytes # 2.3 K/CMM 1.0 - 5.5 09/01/2016 [facility] HEMATOLOGY Basophils # 0.1 K/CMM 0.0 - 0.2 09/01/2016 [facility] Segs 68.6 % 45.0 - 75.0 09/01/2016 [facility] Lymphocytes 23.6 % 20.0 - 40.0 09/01/2016 [facility] Platelet 306 K/CMM 133 - 450 09/01/2016 [facility] MPV 8.1 fL 7.4 - 10.4 09/01/2016 [facility] RBC 4.53 M/CMM 4.20 - 5.40 09/01/2016 [facility] MCV 84.3 fL 80.0 - 98.0 09/01/2016 [facility] Hgb 12.7 g/dL 12.0 - 16.0 09/01/2016 [facility] MCH 28.0 pg 27.0 - 31.0 09/01/2016 [facility] Hct 38.2 % 36.0 - 48.0 09/01/2016 [facility] MCHC 33.2 g/dL 32.0 - 36.0 09/01/2016 [facility] RDW 13.3 % 11.5 - 14.5 09/01/2016 [facility] WBC 9.9 K/CMM 3.7 - 10.4 09/01/2016 [facility] INR 1.00 0.85 - 1.17 09/01/2016 [facility] PT 13.4 s 12.0 - 14.7 09/01/2016 [facility] PTT 30.3 s 22.9 - 35.8 09/01/2016 [facility] Chest 1view DX Chest 1view DX Clinical Indication: - cp; Comparison: 12/23/2015 Technique: X-ray chest frontal projection FINDINGS: There is no consolidation, pleural effusion or pneumothorax. The heart is normal in size. The mediastinum and josue are unremarkable. The visualized bones and soft tissues are within normal limits. IMPRESSION: No chest radiographic evidence of acute cardiopulmonary disease. SL: NURY 09/01/2016 - - Read by: Tg Ellis MD Dictated Date/time: 09/01/16 15:02 Electronically Signed by: Tg Ellis MD 09/01/16 15:03 FINAL REPORT [facility] Chest/Abdomen/Pelvis w IV contrast CT Chest/Abdomen/Pelvis w IV contrast CT EXAM: CT CHEST, ABDOMEN, AND PELVIS WITH CONTRAST DATE: 12/23/2015 9:26 PM FERMENTER INDICATION: Back pain. Shortness of breath. COMPARISON: CT chest dated 10/28/[address] abdomen pelvis dated 10/25/2015.. TECHNIQUE: Helical CT imaging of the chest, abdomen and pelvis was performed from thoracic inlet through the lesser trochanters following the administration of intravenous contrast. Axial, sagittal and coronal multiplanar reconstructions provided. IV contrast: [address] Radiation Dose: CCL=4660.55 mGy-cm FINDINGS: CHEST LUNG PARENCHYMA AND PLEURA: Peripheral scarring and reticulation is identified. No interstitial or airspace opacities. No pulmonary nodules or masses visualized. No pneumothorax or pleural effusion. AIRWAYS: The central airways are unremarkable. Trachea is midline. MEDIASTINUM: No significant mediastinal lymphadenopathy. HEART: The cardiac chambers are unremarkable. There is no pericardial effusion. There are calcifications of the coronary arteries and aortic root. VASCULAR: The aorta and pulmonary arteries appear unremarkable. Mild atherosclerotic calcification of the aortic arch is identified without evidence for aneurysmal dilatation. AXILLAE AND LOWER NECK: Visible portions unremarkable. ABDOMEN AND PELVIS: LIVER: Multiple cystic lesions are noted within the right lobe of the liver, the largest of which measures 8.5 cm in size on series 3 image 69. This appearance unchanged from the prior examination. GALLBLADDER/BILIARY: Mild prominence of the intrahepatic and extra hepatic ducts is visualized, likely within normal limits for age. PANCREAS: Unremarkable SPLEEN: A few calcified granulomas are noted within the spleen. ADRENALS: Unremarkable KIDNEYS AND URETERS: Unremarkable BLADDER: Unremarkable STOMACH: A small hiatal hernia is visualized. BOWEL: Normal in course and caliber without focal wall thickening or evidence of obstruction. There is diverticulosis of the sigmoid colon without surrounding inflammatory change. APPENDIX: Not well seen on this exam . PELVIS: No pelvic mass or adenopathy. PERITONEUM: No ascites or free air. LYMPH NODES: Unremarkable. VASCULAR: There are scattered vascular calcifications of the aorta and iliac arteries without evidence for dissection or aneurysmal dilatation. OSSEOUS STRUCTURES: Multilevel degenerative changes of the lumbar spine are visualized, most pronounced at L4-L5 and L5-S1. Additional moderate degenerative changes of the right hip are present. No acute osseous abnormality is present. SOFT TISSUES: A right inguinal hernia containing a loop of small bowel is visualized without evidence for obstruction. IMPRESSION: 1. No acute abnormality within the chest, abdomen, or pelvis. 2. Multiple large cystic lesions within the right lobe of the liver, unchanged from the prior examination. 3. Diverticulosis of the colon without surrounding inflammatory change. 4. Scattered vascular calcifications of the aorta without aneurysmal dilatation or dissection. 5. Small hiatal hernia. 6. Right inguinal hernia containing a loop of small bowel without evidence for obstruction. 7. Peripheral scarring and reticulation within the lungs. SL: [id number] 12/23/2015 - - Read by: Nicholas Laguna MD Dictated Date/time: 12/23/15 23:00 Electronically Signed by: Nicholas Laguna MD 12/23/15 23:09 FINAL REPORT [facility] CARDIAC ENZYMES CK MB Index 0.8 0.0 - 2.5 12/23/2015 [facility] CARDIAC ENZYMES BNP 85 pg/mL <=100 pg/mL 12/23/2015 [facility] CARDIAC ENZYMES Troponin-I null 0.00 - 0.40 12/23/2015 [facility] CARDIAC ENZYMES CK MB 1.4 ng/mL 0.5 - 3.6 12/23/2015 [facility] CARDIAC ENZYMES Total CK 169 unit/L 12 - 191 12/23/2015 [facility] CHEM PANEL Globulin 3.9 g/dL 2.7 - 4.2 12/23/2015 [facility] CHEM PANEL A/G Ratio 0.9 0.7 - 1.6 12/23/2015 [facility] CHEM PANEL B/C Ratio 18 6 - 25 12/23/2015 [facility] CHEM PANEL AST 18 unit/L 0 - 37 12/23/2015 [facility] CHEM PANEL Bili Total 0.3 mg/dL 0.2 - 1.3 12/23/2015 [facility] CHEM PANEL AGAP 14.7 meq/L 10.0 - 20.0 12/23/2015 [facility] CHEM PANEL Alk Phos 82 unit/L 39 - 136 12/23/2015 [facility] CHEM PANEL eGFR 96 mL/min/1.73m2 12/23/2015 Result Comment: The eGFR is calculated using the CKD-EPI formula. In most young, healthy individuals the eGFR will be >90 mL/min/1.73m2. The eGFR declines with age. An eGFR of 60-89 may be normal in some populations, particularly the elderly, for whom the CKD-EPI formula has not been extensively validated. Use of the eGFR is not recommended in the following populations: Individuals with unstable creatinine concentrations, including patients and those with serious co-morbid conditions. Patients with extremes in muscle mass or diet. The data above are obtained from the National Kidney Disease Education Program (NKDEP) which additionally recommends that when the eGFR is used in patients with extremes of body mass index for purposes of drug dosing, the eGFR should be multiplied by the estimated BMI. [facility] CHEM PANEL Calcium Lvl 9.1 mg/dL 8.5 - 10.5 12/23/2015 [facility] CHEM PANEL Creatinine Lvl 0.51 mg/dL 0.50 - 1.40 12/23/2015 [facility] CHEM PANEL BUN 9 mg/dL 7 - 22 12/23/2015 [facility] CHEM PANEL Chloride Lvl 100 meq/L 95 - 109 12/23/2015 [facility] CHEM PANEL Glucose Lvl 119 mg/dL 70 - 99 12/23/2015 [facility] CHEM PANEL CO2 24 meq/L 24 - 32 12/23/2015 [facility] CHEM PANEL Total Protein 7.6 g/dL 6.4 - 8.4 12/23/2015 [facility] CHEM PANEL ALT 19 unit/L 0 - 65 12/23/2015 [facility] CHEM PANEL Albumin Lvl 3.7 g/dL 3.5 - 5.0 12/23/2015 [facility] CHEM PANEL Sodium Lvl 135 meq/L 135 - 145 12/23/2015 [facility] CHEM PANEL Potassium Lvl 3.7 meq/L 3.5 - 5.1 12/23/2015 [facility] HEMATOLOGY Lymphocytes # 2.0 K/CMM 1.0 - 5.5 12/23/2015 [facility] HEMATOLOGY Monocytes # 0.8 K/CMM 0.0 - 0.8 12/23/2015 [facility] HEMATOLOGY Eosinophils # 0.3 K/CMM 0.0 - 0.5 12/23/2015 [facility] HEMATOLOGY Basophils # 0.1 K/CMM 0.0 - 0.2 12/23/2015 [facility] HEMATOLOGY Lymphocytes 21.7 % 20.0 - 40.0 12/23/2015 [facility] HEMATOLOGY Monocytes 8.1 % 2.0 - 12.0 12/23/2015 [facility] HEMATOLOGY Eosinophils 2.8 % 0.0 - 4.0 12/23/2015 [facility] HEMATOLOGY Basophils 0.7 % 0.0 - 1.0 12/23/2015 [facility] Segs-Bands # 6.2 K/CMM 1.5 - 8.1 12/23/2015 [facility] Segs 66.7 % 45.0 - 75.0 12/23/2015 [facility] INR 0.96 0.85 - 1.17 12/23/2015 [facility] PT 13.0 s 12.0 - 14.7 12/23/2015 [facility] PTT 29.8 s 22.9 - 35.8 12/23/2015 [facility] MPV 7.5 fL 7.4 - 10.4 12/23/2015 [facility] MCHC 32.8 g/dL 32.0 - 36.0 12/23/2015 [facility] RDW 13.3 % 11.5 - 14.5 12/23/2015 [facility] Platelet 327 K/CMM 133 - 450 12/23/2015 [facility] MCV 86.4 fL 80.0 - 98.0 12/23/2015 [facility] MCH 28.3 pg 27.0 - 31.0 12/23/2015 [facility] WBC 9.3 K/CMM 3.7 - 10.4 12/23/2015 [facility] RBC 4.47 M/CMM 4.20 - 5.40 12/23/2015 [facility] Hgb 12.7 g/dL 12.0 - 16.0 12/23/2015 [facility] Hct 38.6 % 36.0 - 48.0 12/23/2015 [facility] Chest 1view DX Chest 1view DX Patient Name: RAMEZ SPRAGUE : 1940; Age: 75 years y/o Female MR: [id number] Study: Chest 1view DX Comparison: 12/22/2015 Clinical Indication: Shortness of Breath; A few scattered interstitial opacities are noted bilaterally, nonspecific, likely chronic. Cardiac silhouette is upper limits of normal to mildly enlarged. Uncoiling of the thoracic aorta is noted. There is no acute consolidation or pleural fluid collection noted. Marginal spurring is noted at the thoracic spine. Punctate calcification is noted at the left hilum. No pneumothorax. IMPRESSION: No acute cardiopulmonary process and no significant interval change from the previous exam. SL: [id number] 12/23/2015 - - Read by: Marc Gonzalez MD Dictated Date/time: 12/23/15 15:07 Electronically Signed by: Marc Gonzalez MD 12/23/15 15:08 FINAL REPORT [facility] CARDIAC ENZYMES Troponin-I null 0.00 - 0.40 12/22/2015 [facility] CARDIAC ENZYMES CK MB 1.9 ng/mL 0.5 - 3.6 12/22/2015 [facility] CARDIAC ENZYMES Total CK 277 unit/L 12 - 191 12/22/2015 [facility] CARDIAC ENZYMES CK MB Index 0.7 0.0 - 2.5 12/22/2015 [facility] CHEM PANEL A/G Ratio 0.9 0.7 - 1.6 12/22/2015 [facility] CHEM PANEL CO2 27 meq/L 24 - 32 12/22/2015 [facility] CHEM PANEL Chloride Lvl 98 meq/L 95 - 109 12/22/2015 [facility] CHEM PANEL eGFR 93 mL/min/1.73m2 12/22/2015 Result Comment: The eGFR is calculated using the CKD-EPI formula. In most young, healthy individuals the eGFR will be >90 mL/min/1.73m2. The eGFR declines with age. An eGFR of 60-89 may be normal in some populations, particularly the elderly, for whom the CKD-EPI formula has not been extensively validated. Use of the eGFR is not recommended in the following populations: Individuals with unstable creatinine concentrations, including patients and those with serious co-morbid conditions. Patients with extremes in muscle mass or diet. The data above are obtained from the National Kidney Disease Education Program (NKDEP) which additionally recommends that when the eGFR is used in patients with extremes of body mass index for purposes of drug dosing, the eGFR should be multiplied by the estimated BMI. [facility] CHEM PANEL Creatinine Lvl 0.55 mg/dL 0.50 - 1.40 12/22/2015 [facility] CHEM PANEL ALT 19 unit/L 0 - 65 12/22/2015 [facility] CHEM PANEL Sodium Lvl 134 meq/L 135 - 145 12/22/2015 [facility] CHEM PANEL AST 18 unit/L 0 - 37 12/22/2015 [facility] CHEM PANEL Potassium Lvl 3.7 meq/L 3.5 - 5.1 12/22/2015 [facility] CHEM PANEL Albumin Lvl 3.4 g/dL 3.5 - 5.0 12/22/2015 [facility] CHEM PANEL Total Protein 7.0 g/dL 6.4 - 8.4 12/22/2015 [facility] CHEM PANEL Calcium Lvl 8.5 mg/dL 8.5 - 10.5 12/22/2015 [facility] CHEM PANEL Globulin 3.6 g/dL 2.7 - 4.2 12/22/2015 [facility] CHEM PANEL Alk Phos 76 unit/L 39 - 136 12/22/2015 [facility] CHEM PANEL B/C Ratio 20 6 - 25 12/22/2015 [facility] CHEM PANEL Bili Total 0.3 mg/dL 0.2 - 1.3 12/22/2015 [facility] CHEM PANEL AGAP 12.7 meq/L 10.0 - 20.0 12/22/2015 [facility] CHEM PANEL Glucose Lvl 98 mg/dL 70 - 99 12/22/2015 [facility] CHEM PANEL BUN 11 mg/dL 7 - 22 12/22/2015 [facility] HEMATOLOGY PTT 29.0 s 22.9 - 35.8 12/22/2015 [facility] HEMATOLOGY PT 13.7 s 12.0 - 14.7 12/22/2015 [facility] HEMATOLOGY INR 1.03 0.85 - 1.17 12/22/2015 [facility] HEMATOLOGY MPV 7.7 fL 7.4 - 10.4 12/22/2015 [facility] HEMATOLOGY Platelet 303 K/CMM 133 - 450 12/22/2015 [facility] HEMATOLOGY RDW 13.2 % 11.5 - 14.5 12/22/2015 [facility] HEMATOLOGY Hct 35.3 % 36.0 - 48.0 12/22/2015 [facility] HEMATOLOGY Hgb 11.6 g/dL 12.0 - 16.0 12/22/2015 [facility] HEMATOLOGY MCHC 33.0 g/dL 32.0 - 36.0 12/22/2015 [facility] MCH 28.2 pg 27.0 - 31.0 12/22/2015 [facility] HEMATOLOGY MCV 85.6 fL 80.0 - 98.0 12/22/2015 [facility] HEMATOLOGY WBC 6.9 K/CMM 3.7 - 10.4 12/22/2015 [facility] HEMATOLOGY RBC 4.12 M/CMM 4.20 - 5.40 12/22/2015 [facility] HEMATOLOGY Basophils # 0.1 K/CMM 0.0 - 0.2 12/22/2015 [facility] HEMATOLOGY Lymphocytes # 1.9 K/CMM 1.0 - 5.5 12/22/2015 [facility] HEMATOLOGY Eosinophils # 0.3 K/CMM 0.0 - 0.5 12/22/2015 [facility] HEMATOLOGY Monocytes # 0.6 K/CMM 0.0 - 0.8 12/22/2015 [facility] HEMATOLOGY Monocytes 8.8 % 2.0 - 12.0 12/22/2015 [facility] HEMATOLOGY Segs-Bands # 4.1 K/CMM 1.5 - 8.1 12/22/2015 [facility] HEMATOLOGY Basophils 1.2 % 0.0 - 1.0 12/22/2015 [facility] HEMATOLOGY Eosinophils 4.5 % 0.0 - 4.0 12/22/2015 [facility] HEMATOLOGY Segs 58.6 % 45.0 - 75.0 12/22/2015 [facility] HEMATOLOGY Lymphocytes 26.9 % 20.0 - 40.0 12/22/2015 [facility] Chest 1view DX Chest 1view DX Patient Name: RAMEZ SPRAGUE : 1940; Age: 75 years y/o Female MR: [id number] Study: Chest 1view DX Comparison: 10/28/2015 Clinical Indication: Dyspnea; A few scattered interstitial opacities are noted bilaterally, nonspecific, likely chronic. Cardiac silhouette is mildly enlarged. Uncoiling of the thoracic aorta is noted. There is no acute consolidation or pleural fluid collection noted. Marginal spurring is noted at the thoracic spine. Minor degenerative changes at the shoulders. IMPRESSION: No acute cardiopulmonary process and no significant interval change from the previous exam. SL: [id number] 12/22/2015 - - Read by: Marc Gonzalez MD Dictated Date/time: 12/22/15 13:15 Electronically Signed by: Marc Gonzalez MD 12/22/15 13:16 FINAL REPORT [facility] CHEM PANEL Magnesium Lvl 2.4 mg/dL 1.8 - 2.4 10/31/2015 [facility] ELECTROLYTES Potassium Lvl 3.6 meq/L 3.5 - 5.1 10/31/2015 [facility] ELECTROLYTES Chloride Lvl 104 meq/L 95 - 109 10/31/2015 [facility] ELECTROLYTES Calcium Lvl 8.5 mg/dL 8.5 - 10.5 10/31/2015 [facility] ELECTROLYTES Creatinine Lvl 0.57 mg/dL 0.50 - 1.40 10/31/2015 [facility] ELECTROLYTES Sodium Lvl 140 meq/L 135 - 145 10/31/2015 [facility] ELECTROLYTES CO2 29 meq/L 24 - 32 10/31/2015 [facility] ELECTROLYTES BUN 11 mg/dL 7 - 22 10/31/2015 [facility] ELECTROLYTES Glucose Lvl 89 mg/dL 70 - 99 10/31/2015 [facility] ELECTROLYTES eGFR 92 mL/min/1.73m2 10/31/2015 Result Comment: The eGFR is calculated using the CKD-EPI formula. In most young, healthy individuals the eGFR will be >90 mL/min/1.73m2. The eGFR declines with age. An eGFR of 60-89 may be normal in some populations, particularly the elderly, for whom the CKD-EPI formula has not been extensively validated. Use of the eGFR is not recommended in the following populations: Individuals with unstable creatinine concentrations, including patients and those with serious co-morbid conditions. Patients with extremes in muscle mass or diet. The data above are obtained from the National Kidney Disease Education Program (NKDEP) which additionally recommends that when the eGFR is used in patients with extremes of body mass index for purposes of drug dosing, the eGFR should be multiplied by the estimated BMI. [facility] ELECTROLYTES AGAP 10.6 meq/L 10.0 - 20.0 10/31/2015 [facility] Platelet 308 K/CMM 133 - 450 10/31/2015 [facility] MPV 7.1 fL 7.4 - 10.4 10/31/2015 [facility] RDW 13.2 % 11.5 - 14.5 10/31/2015 [facility] RBC 3.76 M/CMM 4.20 - 5.40 10/31/2015 [facility] WBC 10.1 K/CMM 3.7 - 10.4 10/31/2015 [facility] Hgb 11.3 g/dL 12.0 - 16.0 10/31/2015 [facility] MCHC 34.1 g/dL 32.0 - 36.0 10/31/2015 [facility] MCH 30.0 pg 27.0 - 31.0 10/31/2015 [facility] MCV 87.9 fL 80.0 - 98.0 10/31/2015 [facility] Hct 33.1 % 36.0 - 48.0 10/31/2015 [facility] Eosinophils 1.4 % 0.0 - 4.0 10/31/2015 [facility] Segs-Bands # 6.8 K/CMM 1.5 - 8.1 10/31/2015 [facility] Lymphocytes # 2.0 K/CMM 1.0 - 5.5 10/31/2015 [facility] HEMATOLOGY Basophils 0.7 % 0.0 - 1.0 10/31/2015 [facility] HEMATOLOGY Lymphocytes 20.0 % 20.0 - 40.0 10/31/2015 [facility] HEMATOLOGY Monocytes 10.2 % 2.0 - 12.0 10/31/2015 [facility] HEMATOLOGY Segs 67.7 % 45.0 - 75.0 10/31/2015 [facility] HEMATOLOGY Eosinophils # 0.1 K/CMM 0.0 - 0.5 10/31/2015 [facility] HEMATOLOGY Basophils # 0.1 K/CMM 0.0 - 0.2 10/31/2015 [facility] HEMATOLOGY Monocytes # 1.0 K/CMM 0.0 - 0.8 10/31/2015 [facility] HEMATOLOGY RBC Morph Normal (10/31/15 6:02 AM) 10/31/2015 [facility] HEMATOLOGY Plt Morph Normal (10/31/15 6:02 AM) 10/31/2015 [facility] CARDIAC ENZYMES Total CK 32 unit/L 12 - 10/30/2015 [facility] CARDIAC ENZYMES Total CK 37 unit/L - 10/30/2015 [facility] HEMATOLOGY Sed Rate 16 mm/h 0 - 20 10/29/2015 [facility] CARDIAC ENZYMES CK MB Index 3.1 0.0 - 2.5 10/29/2015 [facility] CARDIAC ENZYMES Troponin-I 0.03 ng/mL 0.00 - 0.40 10/29/2015 [facility] CARDIAC ENZYMES Total CK 35 unit/L - 191 10/29/2015 [facility] CARDIAC ENZYMES CK MB 1.1 ng/mL 0.5 - 3.6 10/29/2015 [facility] IMMUNOLOGY C-REACTIVE PROTEIN 5.0 mg/L <=2.9 mg/L 10/29/2015 [facility] LIPIDS HDL 64 mg/dL >=61 mg/dL 10/29/2015 [facility] LIPIDS CHD Risk 2.78 3.90 - 5.80 10/29/2015 [facility] LIPIDS VLDL 14 10/29/2015 [facility] LIPIDS Chol 178 mg/dL <=199 mg/dL 10/29/2015 [facility] LIPIDS LDL (Calculated) 100 mg/dL <=99 mg/dL 10/29/2015 [facility] LIPIDS Trig 69 mg/dL <=149 mg/dL 10/29/2015 [facility] SPECIAL CHEMISTRY Hgb A1C 6.0 % <=5.6 % 10/29/2015 [facility] TOXICOLOGY Digoxin Lvl 0.6 ng/mL 0.8 - 2.0 10/29/2015 [facility] CARDIAC ENZYMES CK MB Index 2.9 0.0 - 2.5 10/29/2015 [facility] CARDIAC ENZYMES Troponin-I 0.03 ng/mL 0.00 - 0.40 10/29/2015 [facility] CARDIAC ENZYMES CK MB 1.2 ng/mL 0.5 - 3.6 10/29/2015 [facility] CARDIAC ENZYMES Troponin-I 0.03 ng/mL 0.00 - 0.40 10/29/2015 [facility] ELECTROLYTES Sodium Lvl 139 meq/L 135 - 145 10/29/2015 [facility] ELECTROLYTES Creatinine Lvl 0.66 mg/dL 0.50 - 1.40 10/29/2015 [facility] ELECTROLYTES Potassium Lvl 3.9 meq/L 3.5 - 5.1 10/29/2015 [facility] ELECTROLYTES Glucose Lvl 164 mg/dL 70 - 99 10/29/2015 [facility] ELECTROLYTES BUN 10 mg/dL 7 - 22 10/29/2015 [facility] ELECTROLYTES AGAP 9.9 meq/L 10.0 - 20.0 10/29/2015 [facility] ELECTROLYTES CO2 25 meq/L 24 - 32 10/29/2015 [facility] ELECTROLYTES Calcium Lvl 8.4 mg/dL 8.5 - 10.5 10/29/2015 [facility] ELECTROLYTES eGFR 88 mL/min/1.73m2 10/29/2015 Result Comment: The eGFR is calculated using the CKD-EPI formula. In most young, healthy individuals the eGFR will be >90 mL/min/1.73m2. The eGFR declines with age. An eGFR of 60-89 may be normal in some populations, particularly the elderly, for whom the CKD-EPI formula has not been extensively validated. Use of the eGFR is not recommended in the following populations: Individuals with unstable creatinine concentrations, including patients and those with serious co-morbid conditions. Patients with extremes in muscle mass or diet. The data above are obtained from the National Kidney Disease Education Program (NKDEP) which additionally recommends that when the eGFR is used in patients with extremes of body mass index for purposes of drug dosing, the eGFR should be multiplied by the estimated BMI. [facility] ELECTROLYTES Chloride Lvl 108 meq/L 95 - 109 10/29/2015 [facility] HEMATOLOGY Monocytes 1.5 % 2.0 - 12.0 10/29/2015 [facility] HEMATOLOGY Monocytes # 0.1 K/CMM 0.0 - 0.8 10/29/2015 [facility] HEMATOLOGY Lymphocytes # 0.4 K/CMM 1.0 - 5.5 10/29/2015 [facility] HEMATOLOGY Segs-Bands # 8.8 K/CMM 1.5 - 8.1 10/29/2015 [facility] HEMATOLOGY Basophils 0.2 % 0.0 - 1.0 10/29/2015 [facility] HEMATOLOGY Lymphocytes 3.9 % 20.0 - 40.0 10/29/2015 [facility] HEMATOLOGY Segs 94.4 % 45.0 - 75.0 10/29/2015 [facility] HEMATOLOGY MPV 7.2 fL 7.4 - 10.4 10/29/2015 [facility] HEMATOLOGY RBC 4.03 M/CMM 4.20 - 5.40 10/29/2015 [facility] WBC 9.3 K/CMM 3.7 - 10.4 10/29/2015 [facility] MCHC 33.5 g/dL 32.0 - 36.0 10/29/2015 [facility] RDW 13.2 % 11.5 - 14.5 10/29/2015 [facility] Platelet 351 K/CMM 133 - 450 10/29/2015 [facility] MCH 29.3 pg 27.0 - 31.0 10/29/2015 [facility] Hct 35.2 % 36.0 - 48.0 10/29/2015 [facility] Hgb 11.8 g/dL 12.0 - 16.0 10/29/2015 [facility] MCV 87.3 fL 80.0 - 98.0 10/29/2015 [facility] CARDIAC ENZYMES CK MB Index 1.3 0.0 - 2.5 10/29/2015 [facility] CARDIAC ENZYMES CK MB 0.9 ng/mL 0.5 - 3.6 10/29/2015 [facility] URINE AND STOOL UA Color Ltyellow 10/28/2015 [facility] URINE AND STOOL UA Urobilinogen <=1.0 mg/dL 0.1 - 1.0 10/28/2015 [facility] URINE AND STOOL UA Sq Epi Occasional /LPF Few /LPF 10/28/2015 [facility] URINE AND STOOL UA WBC 1 /HPF 0 - 5 10/28/2015 [facility] URINE AND STOOL UA RBC 2 /HPF 0 - 2 10/28/2015 [facility] URINE AND STOOL UA Leuk Est Small *ABN* (10/28/15 4:26 PM) Negative 10/28/2015 [facility] URINE AND STOOL UA pH 7.0 5.0 - 8.0 10/28/2015 [facility] URINE AND STOOL UA Spec Grav 1.008 <=1.030 10/28/2015 [facility] URINE AND STOOL UA Turbidity Clear (10/28/15 4:26 PM) Clear 10/28/2015 [facility] URINE AND STOOL UA Nitrite Negative (10/28/15 4:26 PM) Negative 10/28/2015 [facility] URINE AND STOOL UA Blood Negative (10/28/15 4:26 PM) Negative 10/28/2015 [facility] URINE AND STOOL UA Bili Negative *NA* (10/28/15 4:26 PM) Negative 10/28/2015 [facility] URINE AND STOOL UA Protein Negative mg/dL Negative mg/dL 10/28/2015 [facility] URINE AND STOOL UA Glucose Negative mg/dL Negative mg/dL 10/28/2015 [facility] URINE AND STOOL UA Ketones Negative mg/dL Negative mg/dL 10/28/2015 [facility] CARDIAC ENZYMES BNP 49 pg/mL <=100 pg/mL 10/28/2015 [facility] CHEM PANEL eGFR 80 mL/min/1.73m2 10/28/2015 Result Comment: The eGFR is calculated using the CKD-EPI formula. In most young, healthy individuals the eGFR will be >90 mL/min/1.73m2. The eGFR declines with age. An eGFR of 60-89 may be normal in some populations, particularly the elderly, for whom the CKD-EPI formula has not been extensively validated. Use of the eGFR is not recommended in the following populations: Individuals with unstable creatinine concentrations, including patients and those with serious co-morbid conditions. Patients with extremes in muscle mass or diet. The data above are obtained from the National Kidney Disease Education Program (NKDEP) which additionally recommends that when the eGFR is used in patients with extremes of body mass index for purposes of drug dosing, the eGFR should be multiplied by the estimated BMI. [facility] CHEM PANEL Albumin Lvl 3.3 g/dL 3.5 - 5.0 10/28/2015 [facility] CHEM PANEL ALT 18 unit/L 0 - 65 10/28/2015 [facility] CHEM PANEL AST 8 unit/L 0 - 37 10/28/2015 [facility] CHEM PANEL Bili Total 0.2 mg/dL 0.2 - 1.3 10/28/2015 [facility] CHEM PANEL Total Protein 6.7 g/dL 6.4 - 8.4 10/28/2015 [facility] CHEM PANEL CO2 26 meq/L 24 - 32 10/28/2015 [facility] CHEM PANEL Alk Phos 80 unit/L 39 - 136 10/28/2015 [facility] CHEM PANEL Globulin 3.4 g/dL 2.7 - 4.2 10/28/2015 [facility] CHEM PANEL B/C Ratio 18 6 - 25 10/28/2015 [facility] CHEM PANEL AGAP 13.0 meq/L 10.0 - 20.0 10/28/2015 [facility] CHEM PANEL A/G Ratio 1.0 0.7 - 1.6 10/28/2015 [facility] CHEM PANEL Calcium Lvl 8.4 mg/dL 8.5 - 10.5 10/28/2015 [facility] CHEM PANEL Glucose Lvl 178 mg/dL 70 - 99 10/28/2015 [facility] CHEM PANEL BUN 13 mg/dL 7 - 22 10/28/2015 [facility] CHEM PANEL Potassium Lvl 4.0 meq/L 3.5 - 5.1 10/28/2015 [facility] CHEM PANEL Sodium Lvl 134 meq/L 135 - 145 10/28/2015 [facility] CHEM PANEL Creatinine Lvl 0.74 mg/dL 0.50 - 1.40 10/28/2015 [facility] CHEM PANEL Chloride Lvl 99 meq/L 95 - 109 10/28/2015 [facility] HEMATOLOGY D-Dimer 0.33 ug/mL FEU 10/28/2015 [facility] HEMATOLOGY WBC 9.6 K/CMM 3.7 - 10.4 10/28/2015 [facility] HEMATOLOGY Hgb 11.8 g/dL 12.0 - 16.0 10/28/2015 [facility] HEMATOLOGY RBC 4.01 M/CMM 4.20 - 5.40 10/28/2015 [facility] HEMATOLOGY MCV 87.5 fL 80.0 - 98.0 10/28/2015 [facility] HEMATOLOGY Hct 35.1 % 36.0 - 48.0 10/28/2015 [facility] HEMATOLOGY MCH 29.3 pg 27.0 - 31.0 10/28/2015 [facility] HEMATOLOGY MCHC 33.5 g/dL 32.0 - 36.0 10/28/2015 [facility] HEMATOLOGY RDW 13.3 % 11.5 - 14.5 10/28/2015 [facility] HEMATOLOGY Platelet 338 K/CMM 133 - 450 10/28/2015 [facility] MPV 7.3 fL 7.4 - 10.4 10/28/2015 [facility] Monocytes 5.6 % 2.0 - 12.0 10/28/2015 [facility] Lymphocytes # 0.7 K/CMM 1.0 - 5.5 10/28/2015 [facility] Segs 86.7 % 45.0 - 75.0 10/28/2015 [facility] Lymphocytes 7.5 % 20.0 - 40.0 10/28/2015 [facility] Basophils 0.2 % 0.0 - 1.0 10/28/2015 [facility] Segs-Bands # 8.3 K/CMM 1.5 - 8.1 10/28/2015 [facility] Monocytes # 0.5 K/CMM 0.0 - 0.8 10/28/2015 [facility] Pulmonary Embolism CTA Chest Pulmonary Embolism CTA CTA CHEST WITH CONTRAST INDICATION: Dyspnea on exertion, chest and back pain, evaluate for PE COMPARISON: CT chest 08/17/2014, chest radiograph 10/28/2015 TECHNIQUE: CTA of the chest was performed after administration of intravenous contrast. Coronal, sagittal, and 3-D reformatted images were utilized. DISCUSSION: No pulmonary emboli are visualized. The heart and aorta are unremarkable. There is mild atelectasis at the lung bases. There is no consolidation, pleural effusion, or pneumothorax. No pulmonary nodules are identified. The trachea and major bronchi are clear. No suspicious lymphadenopathy is seen. Two right hepatic cysts are noted, measuring as large as 8.3 cm. Limited evaluation of the upper abdominal structures is otherwise grossly unremarkable. BONES: No acute bony abnormalities are seen. IMPRESSION: No evidence of pulmonary embolism. No acute intrathoracic abnormalities are visualized. SL:16 10/28/2015 - - Read by: Javed Fox MD Dictated Date/time: 10/28/15 16:41 Electronically Signed by: Javed Fox MD 10/28/15 16:46 FINAL REPORT [facility] Chest 1view DX Chest 1view DX Study: Chest 1view DX 10/28/2015 1:06 PM CDT Patient Name: RAMEZ SPRAGUE MR: [id number] : 1940; Age: 75 years y/o Female Ordering Physician: Saige Hill Clinical Indication: Chest pain Comparison: 10/25/2015. FINDINGS LUNGS: The emphysematous lungs are clear consolidation, pleural effusion, and pneumothorax. Stable mildly elevated right hemidiaphragm. HEART AND MEDIASTINUM: Heart size at the upper limits of normal to mildly enlarged. LINES: None. OSSEOUS STRUCTURES: No fracture, dislocation, or suspicious focal osseous lesion. OTHER: None. IMPRESSION: 1. No important interval change. SL: [id number] 10/28/2015 - - Read by: Giorgi Restrepo MD Dictated Date/time: 10/28/15 14:08 Electronically Signed by: Giorgi Restrepo MD 10/28/15 14:09 FINAL REPORT [facility] CARDIAC ENZYMES Total CK 90 unit/L 12 - 191 10/25/2015 [facility] CARDIAC ENZYMES BNP 29 pg/mL <=100 pg/mL 10/25/2015 [facility] CARDIAC ENZYMES CK MB 1.7 ng/mL 0.5 - 3.6 10/25/2015 [facility] CARDIAC ENZYMES Troponin-I 0.02 ng/mL 0.00 - 0.40 10/25/2015 [facility] CARDIAC ENZYMES CK MB Index 1.9 0.0 - 2.5 10/25/2015 [facility] CHEM PANEL Lipase Lvl 50 unit/L 73 - 393 10/25/2015 [facility] CHEM PANEL eGFR 91 mL/min/1.73m2 10/25/2015 Result Comment: The eGFR is calculated using the CKD-EPI formula. In most young, healthy individuals the eGFR will be >90 mL/min/1.73m2. The eGFR declines with age. An eGFR of 60-89 may be normal in some populations, particularly the elderly, for whom the CKD-EPI formula has not been extensively validated. Use of the eGFR is not recommended in the following populations: Individuals with unstable creatinine concentrations, including patients and those with serious co-morbid conditions. Patients with extremes in muscle mass or diet. The data above are obtained from the National Kidney Disease Education Program (NKDEP) which additionally recommends that when the eGFR is used in patients with extremes of body mass index for purposes of drug dosing, the eGFR should be multiplied by the estimated BMI. [facility] CHEM PANEL B/C Ratio 14 6 - 25 10/25/2015 [facility] CHEM PANEL Globulin 3.7 g/dL 2.7 - 4.2 10/25/2015 [facility] CHEM PANEL A/G Ratio 1.0 0.7 - 1.6 10/25/2015 [facility] CHEM PANEL Calcium Lvl 8.5 mg/dL 8.5 - 10.5 10/25/2015 [facility] CHEM PANEL Total Protein 7.4 g/dL 6.4 - 8.4 10/25/2015 [facility] CHEM PANEL Albumin Lvl 3.7 g/dL 3.5 - 5.0 10/25/2015 [facility] CHEM PANEL ALT 21 unit/L 0 - 65 10/25/2015 [facility] CHEM PANEL AST 18 unit/L 0 - 37 10/25/2015 [facility] CHEM PANEL Alk Phos 97 unit/L 39 - 136 10/25/2015 [facility] CHEM PANEL Bili Total 0.4 mg/dL 0.2 - 1.3 10/25/2015 [facility] CHEM PANEL AGAP 11.5 meq/L 10.0 - 20.0 10/25/2015 [facility] CHEM PANEL BUN 8 mg/dL 7 - 22 10/25/2015 [facility] CHEM PANEL Creatinine Lvl 0.58 mg/dL 0.50 - 1.40 10/25/2015 [facility] CHEM PANEL Sodium Lvl 132 meq/L 135 - 145 10/25/2015 [facility] CHEM PANEL Potassium Lvl 3.5 meq/L 3.5 - 5.1 10/25/2015 [facility] CHEM PANEL Chloride Lvl 94 meq/L 95 - 109 10/25/2015 [facility] CHEM PANEL CO2 30 meq/L 24 - 32 10/25/2015 [facility] CHEM PANEL Glucose Lvl 110 mg/dL 70 - 99 10/25/2015 [facility] HEMATOLOGY PTT 28.4 s 22.9 - 35.8 10/25/2015 [facility] HEMATOLOGY INR 0.98 0.85 - 1.17 10/25/2015 [facility] HEMATOLOGY PT 13.3 s 12.0 - 14.7 10/25/2015 [facility] HEMATOLOGY Hct 37.6 % 36.0 - 48.0 10/25/2015 [facility] HEMATOLOGY MCH 29.2 pg 27.0 - 31.0 10/25/2015 [facility] HEMATOLOGY MCV 87.2 fL 80.0 - 98.0 10/25/2015 [facility] HEMATOLOGY Hgb 12.6 g/dL 12.0 - 16.0 10/25/2015 [facility] HEMATOLOGY RBC 4.31 M/CMM 4.20 - 5.40 10/25/2015 [facility] WBC 11.4 K/CMM 3.7 - 10.4 10/25/2015 [facility] MCHC 33.5 g/dL 32.0 - 36.0 10/25/2015 [facility] Platelet 319 K/CMM 133 - 450 10/25/2015 [facility] MPV 7.1 fL 7.4 - 10.4 10/25/2015 [facility] RDW 13.0 % 11.5 - 14.5 10/25/2015 [facility] Monocytes # 0.5 K/CMM 0.0 - 0.8 10/25/2015 [facility] Eosinophils # 0.2 K/CMM 0.0 - 0.5 10/25/2015 [facility] Segs 84.3 % 45.0 - 75.0 10/25/2015 [facility] Lymphocytes # 1.1 K/CMM 1.0 - 5.5 10/25/2015 [facility] Plt Morph Normal (10/25/15 2:18 AM) 10/25/2015 [facility] Eosinophils 1.7 % 0.0 - 4.0 10/25/2015 [facility] Lymphocytes 9.3 % 20.0 - 40.0 10/25/2015 [facility] Monocytes 4.3 % 2.0 - 12.0 10/25/2015 [facility] Segs-Bands # 9.6 K/CMM 1.5 - 8.1 10/25/2015 [facility] Basophils 0.4 % 0.0 - 1.0 10/25/2015 [facility] RBC Morph Normal (10/25/15 2:18 AM) 10/25/2015 [facility] Abdomen/Pelvis w IV contrast CT Abdomen/Pelvis w IV contrast CT Patient Name: RAMEZ SPRAGUE : 1940; Age: 75 years y/o Female MR: [id number] Study: Abdomen/Pelvis w IV contrast CT 10/25/2015 2:05 AM CDT Ordering Physician: Audrey Bartholomew DO Clinical Indication: Abdominal pain, acute; Comparison: 09/14/2015 CT abdomen pelvis TECHNIQUE: Helical imaging was performed from the diaphragm through the symphysis with multiplanar reformations obtained after intravenous administration of 100 mL of Omnipaque. Total DLP 1401 mGy-cm FINDINGS: LOWER CHEST: The lung bases are clear without significant pleural effusion bilaterally. SOLID ORGANS: Several hepatic cysts, largest 8 cm in the right lobe. No acute liver abnormality. Pancreas, adrenal glands, spleen and kidneys are otherwise unremarkable. Moderate distention of the gallbladder without wall thickening or pathologic pericholecystic fluid. RETROPERITONEUM: No abdominal or pelvic adenopathy. The abdominal aorta is unremarkable. PELVIS: Right ovary is prominent measuring 25 x 31 mm, similar to previous. No other pathologic pelvic mass or fluid. Bladder is unremarkable. BOWEL: No bowel obstruction or pathologic distention. There is however generous amount of stool within the colon and rectum. Correlate clinically for constipation. Colonic diverticulosis is noted particularly about the sigmoid, without evidence for diverticulitis. The appendix is not visualized. PERITONEUM: No free intraperitoneal air. No abnormal fluid collection identified in the abdomen or pelvis. MUSCULOSKELETAL: No significant osseous abnormality. IMPRESSION: Generous amount of colonic stool has developed. Correlate clinically for constipation. Diverticulosis without evidence for diverticulitis. No other acute finding. ANNIE: HANANE 10/25/2015 - - Read by: Kimo Ramírez MD Dictated Date/time: 10/25/15 05:13 Electronically Signed by: Kimo Ramírez MD 10/25/15 05:18 FINAL REPORT [facility] Chest 1view DX Chest 1view DX Patient Name: RAMEZ SPRAGUE : 1940; Age: 75 years y/o Female MR: [id number] * CHEST, portable, 1 view HISTORY: Dyspnea COMPARISON: 10/20/2015. A study of 11/09/2014 and a chest computed tomography scan of 08/17/2014 were reviewed. TECHNIQUE: A portable frontal radiograph of the chest was obtained. FINDINGS: There is slight chronic elevation of the right hemidiaphragm. The lungs are clear. There are no pleural effusions. The heart is normal in size. The regional skeleton is unremarkable. IMPRESSION: 1. No active disease. ANNIE: DEREK 10/25/2015 - - Read by: Nahun Zelaya MD Dictated Date/time: 10/25/15 01:39 Electronically Signed by: Nahun Zelaya MD 10/25/15 01:40 FINAL REPORT [facility] CARDIAC ENZYMES Troponin-I 0.04 ng/mL 0.00 - 0.40 10/20/2015 [facility] CARDIAC ENZYMES Total CK 124 unit/L 12 - 191 10/20/2015 [facility] CARDIAC ENZYMES CK MB Index 1.5 0.0 - 2.5 10/20/2015 [facility] CARDIAC ENZYMES CK MB 1.8 ng/mL 0.5 - 3.6 10/20/2015 [facility] CHEM PANEL Lactic Acid Lvl 1.0 mMol/L 0.5 - 2.2 10/20/2015 [facility] URINE AND STOOL UA Color [place] 10/20/2015 [facility] URINE AND STOOL UA Urobilinogen <=1.0 mg/dL 0.1 - 1.0 10/20/2015 [facility] URINE AND STOOL UA Nitrite Negative (10/20/15 3:52 AM) Negative 10/20/2015 [facility] URINE AND STOOL UA Leuk Est Large *ABN* (10/20/15 3:52 AM) Negative 10/20/2015 [facility] URINE AND STOOL UA Ketones Negative mg/dL Negative mg/dL 10/20/2015 [facility] URINE AND STOOL UA RBC 2 /HPF 0 - 2 10/20/2015 [facility] URINE AND STOOL UA Bacteria Occasional /HPF None Seen /HPF 10/20/2015 [facility] URINE AND STOOL UA Sq Epi Occasional /LPF Few /LPF 10/20/2015 [facility] URINE AND STOOL UA WBC 5 /HPF 0 - 5 10/20/2015 [facility] URINE AND STOOL UA Blood Small *ABN* (10/20/15 3:52 AM) Negative 10/20/2015 [facility] URINE AND STOOL UA Bili Negative *NA* (10/20/15 3:52 AM) Negative 10/20/2015 [facility] URINE AND STOOL UA Spec Grav 1.010 <=1.030 10/20/2015 [facility] URINE AND STOOL UA pH 7.0 5.0 - 8.0 10/20/2015 [facility] URINE AND STOOL UA Protein Negative mg/dL Negative mg/dL 10/20/2015 [facility] URINE AND STOOL UA Glucose Negative mg/dL Negative mg/dL 10/20/2015 [facility] URINE AND STOOL UA Turbidity Clear (10/20/15 3:52 AM) Clear 10/20/2015 [facility] CARDIAC ENZYMES Troponin-I 0.03 ng/mL 0.00 - 0.40 10/20/2015 [facility] CARDIAC ENZYMES Total CK 209 unit/L 12 - 191 10/20/2015 [facility] CARDIAC ENZYMES CK MB 3.0 ng/mL 0.5 - 3.6 10/20/2015 [facility] CARDIAC ENZYMES BNP 37 pg/mL <=100 pg/mL 10/20/2015 [facility] CARDIAC ENZYMES CK MB Index 1.4 0.0 - 2.5 10/20/2015 [facility] CHEM PANEL eGFR 96 mL/min/1.73m2 10/20/2015 Result Comment: The eGFR is calculated using the CKD-EPI formula. In most young, healthy individuals the eGFR will be >90 mL/min/1.73m2. The eGFR declines with age. An eGFR of 60-89 may be normal in some populations, particularly the elderly, for whom the CKD-EPI formula has not been extensively validated. Use of the eGFR is not recommended in the following populations: Individuals with unstable creatinine concentrations, including patients and those with serious co-morbid conditions. Patients with extremes in muscle mass or diet. The data above are obtained from the National Kidney Disease Education Program (NKDEP) which additionally recommends that when the eGFR is used in patients with extremes of body mass index for purposes of drug dosing, the eGFR should be multiplied by the estimated BMI. [facility] CHEM PANEL Alk Phos 84 unit/L 39 - 136 10/20/2015 [facility] CHEM PANEL Bili Total 0.3 mg/dL 0.2 - 1.3 10/20/2015 [facility] CHEM PANEL AST 19 unit/L 0 - 37 10/20/2015 [facility] CHEM PANEL Total Protein 8.0 g/dL 6.4 - 8.4 10/20/2015 [facility] CHEM PANEL Albumin Lvl 3.9 g/dL 3.5 - 5.0 10/20/2015 [facility] CHEM PANEL ALT 25 unit/L 0 - 65 10/20/2015 [facility] CHEM PANEL AGAP 11.7 meq/L 10.0 - 20.0 10/20/2015 [facility] CHEM PANEL Globulin 4.1 g/dL 2.7 - 4.2 10/20/2015 [facility] CHEM PANEL A/G Ratio 1.0 0.7 - 1.6 10/20/2015 [facility] CHEM PANEL B/C Ratio 18 6 - 25 10/20/2015 [facility] CHEM PANEL BUN 9 mg/dL 7 - 22 10/20/2015 [facility] CHEM PANEL Glucose Lvl 127 mg/dL 70 - 99 10/20/2015 [facility] CHEM PANEL Calcium Lvl 8.9 mg/dL 8.5 - 10.5 10/20/2015 [facility] CHEM PANEL Chloride Lvl 97 meq/L 95 - 109 10/20/2015 [facility] CHEM PANEL CO2 26 meq/L 24 - 32 10/20/2015 [facility] CHEM PANEL Sodium Lvl 131 meq/L 135 - 145 10/20/2015 [facility] CHEM PANEL Potassium Lvl 3.7 meq/L 3.5 - 5.1 10/20/2015 [facility] CHEM PANEL Creatinine Lvl 0.51 mg/dL 0.50 - 1.40 10/20/2015 [facility] CHEM PANEL Lipase Lvl 63 unit/L 73 - 393 10/20/2015 [facility] HEMATOLOGY PT 12.9 s 12.0 - 14.7 10/20/2015 [facility] HEMATOLOGY INR 0.94 0.85 - 1.17 10/20/2015 [facility] MCHC 33.4 g/dL 32.0 - 36.0 10/20/2015 [facility] MCH 29.2 pg 27.0 - 31.0 10/20/2015 [facility] MCV 87.5 fL 80.0 - 98.0 10/20/2015 [facility] HEMATOLOGY MPV 7.5 fL 7.4 - 10.4 10/20/2015 [facility] HEMATOLOGY RDW 13.0 % 11.5 - 14.5 10/20/2015 [facility] HEMATOLOGY RBC 4.77 M/CMM 4.20 - 5.40 10/20/2015 [facility] HEMATOLOGY WBC 11.5 K/CMM 3.7 - 10.4 10/20/2015 [facility] Platelet 338 K/CMM 133 - 450 10/20/2015 [facility] Hct 41.7 % 36.0 - 48.0 10/20/2015 [facility] Hgb 13.9 g/dL 12.0 - 16.0 10/20/2015 [facility] HEMATOLOGY Monocytes # 0.7 K/CMM 0.0 - 0.8 10/20/2015 [facility] HEMATOLOGY Basophils # 0.1 K/CMM 0.0 - 0.2 10/20/2015 [facility] HEMATOLOGY Segs-Bands # 9.5 K/CMM 1.5 - 8.1 10/20/2015 [facility] Lymphocytes # 1.2 K/CMM 1.0 - 5.5 10/20/2015 [facility] HEMATOLOGY Eosinophils 0.3 % 0.0 - 4.0 10/20/2015 [facility] HEMATOLOGY Basophils 0.5 % 0.0 - 1.0 10/20/2015 [facility] HEMATOLOGY Monocytes 6.2 % 2.0 - 12.0 10/20/2015 [facility] HEMATOLOGY Lymphocytes 10.6 % 20.0 - 40.0 10/20/2015 [facility] HEMATOLOGY Segs 82.4 % 45.0 - 75.0 10/20/2015 [facility] VIRAL - SEROLOGY Influ B Negative (10/20/15 3:47 AM) Negative 10/20/2015 [facility] VIRAL - SEROLOGY Influ A Negative (10/20/15 3:47 AM) Negative 10/20/2015 [facility] Chest 1view DX Chest 1view DX EXAM: Chest 1view DX DATE: 10/20/2015 3:30 AM CDT INDICATION: Chest pain acute shortness of breath. COMPARISON: 10/05/2015. IMPRESSION: Stable cardiac silhouette and mediastinum. Tortuous thoracic aorta. No focal consolidation, significant pleural effusion or pneumothorax. SL: [id number] 10/20/2015 - - Read by: Alfredo Pelayo MD Dictated Date/time: 10/20/15 03:56 Electronically Signed by: Alfredo Pelayo MD 10/20/15 03:56 FINAL REPORT [facility] CHEM PANEL eGFR 89 mL/min/1.73m2 10/15/2015 Result Comment: The eGFR is calculated using the CKD-EPI formula. In most young, healthy individuals the eGFR will be >90 mL/min/1.73m2. The eGFR declines with age. An eGFR of 60-89 may be normal in some populations, particularly the elderly, for whom the CKD-EPI formula has not been extensively validated. Use of the eGFR is not recommended in the following populations: Individuals with unstable creatinine concentrations, including patients and those with serious co-morbid conditions. Patients with extremes in muscle mass or diet. The data above are obtained from the National Kidney Disease Education Program (NKDEP) which additionally recommends that when the eGFR is used in patients with extremes of body mass index for purposes of drug dosing, the eGFR should be multiplied by the estimated BMI. [facility] CHEM PANEL Calcium Lvl 9.0 mg/dL 8.5 - 10.5 10/15/2015 [facility] CHEM PANEL CO2 28 meq/L 24 - 32 10/15/2015 [facility] CHEM PANEL AGAP 13.3 meq/L 10.0 - 20.0 10/15/2015 [facility] CHEM PANEL BUN 11 mg/dL 7 - 10/15/2015 [facility] CHEM PANEL Glucose Lvl 110 mg/dL 70 - 99 10/15/2015 [facility] CHEM PANEL Sodium Lvl 141 meq/L 135 - 145 10/15/2015 [facility] CHEM PANEL Creatinine Lvl 0.63 mg/dL 0.50 - 1.40 10/15/2015 [facility] CHEM PANEL Chloride Lvl 103 meq/L 95 - 109 10/15/2015 [facility] CHEM PANEL Potassium Lvl 3.3 meq/L 3.5 - 5.1 10/15/2015 [facility] HEMATOLOGY Sed Rate 9 mm/h 0 - 20 10/06/2015 [facility] HEMATOLOGY D-Dimer 0.22 ug/mL FEU 10/06/2015 [facility] CARDIAC ENZYMES Total CK 34 unit/L 12 - 191 10/06/2015 [facility] CARDIAC ENZYMES Troponin-I null 0.00 - 0.40 10/06/2015 [facility] CHEM PANEL eGFR 96 mL/min/1.73m2 10/06/2015 Result Comment: The eGFR is calculated using the CKD-EPI formula. In most young, healthy individuals the eGFR will be >90 mL/min/1.73m2. The eGFR declines with age. An eGFR of 60-89 may be normal in some populations, particularly the elderly, for whom the CKD-EPI formula has not been extensively validated. Use of the eGFR is not recommended in the following populations: Individuals with unstable creatinine concentrations, including patients and those with serious co-morbid conditions. Patients with extremes in muscle mass or diet. The data above are obtained from the National Kidney Disease Education Program (NKDEP) which additionally recommends that when the eGFR is used in patients with extremes of body mass index for purposes of drug dosing, the eGFR should be multiplied by the estimated BMI. [facility] CHEM PANEL Calcium Lvl 8.2 mg/dL 8.5 - 10.5 10/06/2015 [facility] CHEM PANEL Sodium Lvl 136 meq/L 135 - 145 10/06/2015 [facility] CHEM PANEL BUN 14 mg/dL 7 - 10/06/2015 [facility] CHEM PANEL Creatinine Lvl 0.50 mg/dL 0.50 - 1.40 10/06/2015 [facility] CHEM PANEL CO2 32 meq/L 24 - 32 10/06/2015 [facility] CHEM PANEL Chloride Lvl 101 meq/L 95 - 109 10/06/2015 [facility] CHEM PANEL Potassium Lvl 3.6 meq/L 3.5 - 5.1 10/06/2015 [facility] CHEM PANEL Glucose Lvl 87 mg/dL 70 - 99 10/06/2015 [facility] CHEM PANEL AGAP 6.6 meq/L 10.0 - 20.0 10/06/2015 [facility] HEMATOLOGY Platelet 347 K/CMM 133 - 450 10/06/2015 [facility] LIPIDS HDL 61 mg/dL >=61 mg/dL 10/06/2015 [facility] LIPIDS Chol 197 mg/dL <=199 mg/dL 10/06/2015 [facility] LIPIDS LDL (Calculated) 118 mg/dL <=99 mg/dL 10/06/2015 [facility] LIPIDS Trig 88 mg/dL <=149 mg/dL 10/06/2015 [facility] LIPIDS VLDL 18 10/06/2015 [facility] LIPIDS CHD Risk 3.23 3.90 - 5.80 10/06/2015 [facility] CARDIAC ENZYMES Troponin-I null 0.00 - 0.40 10/06/2015 [facility] CARDIAC ENZYMES Total CK 36 unit/L 12 - 191 10/06/2015 [facility] URINE AND STOOL UA Urobilinogen <=1.0 mg/dL 0.1 - 1.0 10/05/2015 [facility] URINE AND STOOL UA Color Ltyellow 10/05/2015 [facility] URINE AND STOOL UA Sq Epi None Seen 10/05/2015 [facility] URINE AND STOOL UA RBC 2 /HPF 0 - 2 10/05/2015 [facility] URINE AND STOOL UA Blood Negative (10/05/15 5:02 PM) Negative 10/05/2015 [facility] URINE AND STOOL UA Ketones Negative mg/dL Negative mg/dL 10/05/2015 [facility] URINE AND STOOL UA Glucose Negative mg/dL Negative mg/dL 10/05/2015 [facility] URINE AND STOOL UA Bili Negative *NA* (10/05/15 5:02 PM) Negative 10/05/2015 [facility] URINE AND STOOL UA Spec Grav 1.006 <=1.030 10/05/2015 [facility] URINE AND STOOL UA pH 8.0 5.0 - 8.0 10/05/2015 [facility] URINE AND STOOL UA Protein Negative mg/dL Negative mg/dL 10/05/2015 [facility] URINE AND STOOL UA Leuk Est Moderate *ABN* (10/05/15 5:02 PM) Negative 10/05/2015 [facility] URINE AND STOOL UA Nitrite Negative (10/05/15 5:02 PM) Negative 10/05/2015 [facility] URINE AND STOOL UA Turbidity Clear (10/05/15 5:02 PM) Clear 10/05/2015 [facility] URINE AND STOOL UA WBC 2 /HPF 0 - 5 10/05/2015 [facility] CARDIAC ENZYMES CK MB Index null 0.0 - 2.5 10/05/2015 [facility] CARDIAC ENZYMES Total CK 45 unit/L 12 - 191 10/05/2015 [facility] CARDIAC ENZYMES Troponin-I null 0.00 - 0.40 10/05/2015 [facility] CARDIAC ENZYMES CK MB null 0.5 - 3.6 10/05/2015 [facility] CHEM PANEL eGFR 91 mL/min/1.73m2 10/05/2015 Result Comment: The eGFR is calculated using the CKD-EPI formula. In most young, healthy individuals the eGFR will be >90 mL/min/1.73m2. The eGFR declines with age. An eGFR of 60-89 may be normal in some populations, particularly the elderly, for whom the CKD-EPI formula has not been extensively validated. Use of the eGFR is not recommended in the following populations: Individuals with unstable creatinine concentrations, including patients and those with serious co-morbid conditions. Patients with extremes in muscle mass or diet. The data above are obtained from the National Kidney Disease Education Program (NKDEP) which additionally recommends that when the eGFR is used in patients with extremes of body mass index for purposes of drug dosing, the eGFR should be multiplied by the estimated BMI. [facility] CHEM PANEL Sodium Lvl 135 meq/L 135 - 145 10/05/2015 [facility] CHEM PANEL Glucose Lvl 120 mg/dL 70 - 99 10/05/2015 [facility] CHEM PANEL Creatinine Lvl 0.60 mg/dL 0.50 - 1.40 10/05/2015 [facility] CHEM PANEL BUN 10 mg/dL 7 - 22 10/05/2015 [facility] CHEM PANEL Total Protein 7.5 g/dL 6.4 - 8.4 10/05/2015 [facility] CHEM PANEL Chloride Lvl 99 meq/L 95 - 109 10/05/2015 [facility] CHEM PANEL Albumin Lvl 3.6 g/dL 3.5 - 5.0 10/05/2015 [facility] CHEM PANEL Calcium Lvl 8.6 mg/dL 8.5 - 10.5 10/05/2015 [facility] CHEM PANEL Potassium Lvl 3.8 meq/L 3.5 - 5.1 10/05/2015 [facility] CHEM PANEL CO2 29 meq/L 24 - 32 10/05/2015 [facility] CHEM PANEL Bili Total 0.3 mg/dL 0.2 - 1.3 10/05/2015 [facility] CHEM PANEL AGAP 10.8 meq/L 10.0 - 20.0 10/05/2015 [facility] CHEM PANEL AST 16 unit/L 0 - 37 10/05/2015 [facility] CHEM PANEL ALT 30 unit/L 0 - 65 10/05/2015 [facility] CHEM PANEL Alk Phos 90 unit/L 39 - 136 10/05/2015 [facility] CHEM PANEL Globulin 3.9 g/dL 2.7 - 4.2 10/05/2015 [facility] CHEM PANEL B/C Ratio 17 6 - 25 10/05/2015 [facility] CHEM PANEL A/G Ratio 0.9 0.7 - 1.6 10/05/2015 [facility] HEMATOLOGY Lymphocytes 18.1 % 20.0 - 40.0 10/05/2015 [facility] HEMATOLOGY Segs 70.0 % 45.0 - 75.0 10/05/2015 [facility] HEMATOLOGY Monocytes 9.3 % 2.0 - 12.0 10/05/2015 [facility] HEMATOLOGY Basophils 0.9 % 0.0 - 1.0 10/05/2015 [facility] HEMATOLOGY Lymphocytes # 2.0 K/CMM 1.0 - 5.5 10/05/2015 [facility] HEMATOLOGY Eosinophils 1.7 % 0.0 - 4.0 10/05/2015 [facility] HEMATOLOGY Segs-Bands # 7.7 K/CMM 1.5 - 8.1 10/05/2015 [facility] HEMATOLOGY Eosinophils # 0.2 K/CMM 0.0 - 0.5 10/05/2015 [facility] HEMATOLOGY Monocytes # 1.0 K/CMM 0.0 - 0.8 10/05/2015 [facility] HEMATOLOGY Basophils # 0.1 K/CMM 0.0 - 0.2 10/05/2015 [facility] HEMATOLOGY PTT 27.7 s 22.9 - 35.8 10/05/2015 [facility] HEMATOLOGY PT 12.8 s 12.0 - 14.7 10/05/2015 [facility] HEMATOLOGY INR 0.93 0.85 - 1.17 10/05/2015 [facility] HEMATOLOGY MCH 29.6 pg 27.0 - 31.0 10/05/2015 [facility] RDW 13.5 % 11.5 - 14.5 10/05/2015 [facility] Hgb 13.5 g/dL 12.0 - 16.0 10/05/2015 [facility] MCHC 33.9 g/dL 32.0 - 36.0 10/05/2015 [facility] Hct 39.8 % 36.0 - 48.0 10/05/2015 [facility] MCV 87.3 fL 80.0 - 98.0 10/05/2015 [facility] MPV 7.4 fL 7.4 - 10.4 10/05/2015 [facility] Platelet 410 K/CMM 133 - 450 10/05/2015 [facility] RBC 4.56 M/CMM 4.20 - 5.40 10/05/2015 [facility] WBC 11.0 K/CMM 3.7 - 10.4 10/05/2015 [facility] Chest 1view DX Chest 1view DX Study: Chest 1view DX Clinical Indication: Chest pain Comparison: Chest x-ray from September 28, 2015 FINDINGS: The cardiac silhouette is normal in size. The lungs are clear and without consolidation or congestion. No pleural effusion or pneumothorax is seen. The osseous structures are unremarkable. IMPRESSION: No acute cardiopulmonary disease. SL: [id number] 10/05/2015 - - Read by: Keith Simon MD Dictated Date/time: 10/05/15 15:45 Electronically Signed by: Keith Simon MD 10/05/15 15:45 FINAL REPORT [facility] CHEM PANEL Amylase Lvl 39 unit/L 25 - 115 09/29/2015 [facility] CHEM PANEL Lipase Lvl 65 unit/L 73 - 393 09/29/2015 [facility] CHEM PANEL eGFR 92 mL/min/1.73m2 09/29/2015 Result Comment: The eGFR is calculated using the CKD-EPI formula. In most young, healthy individuals the eGFR will be >90 mL/min/1.73m2. The eGFR declines with age. An eGFR of 60-89 may be normal in some populations, particularly the elderly, for whom the CKD-EPI formula has not been extensively validated. Use of the eGFR is not recommended in the following populations: Individuals with unstable creatinine concentrations, including patients and those with serious co-morbid conditions. Patients with extremes in muscle mass or diet. The data above are obtained from the National Kidney Disease Education Program (NKDEP) which additionally recommends that when the eGFR is used in patients with extremes of body mass index for purposes of drug dosing, the eGFR should be multiplied by the estimated BMI. [facility] CHEM PANEL Chloride Lvl 99 meq/L 95 - 109 09/29/2015 [facility] CHEM PANEL AGAP 10.0 meq/L 10.0 - 20.0 09/29/2015 [facility] CHEM PANEL CO2 28 meq/L 24 - 32 09/29/2015 [facility] CHEM PANEL B/C Ratio 18 6 - 25 09/29/2015 [facility] CHEM PANEL Calcium Lvl 8.5 mg/dL 8.5 - 10.5 09/29/2015 [facility] CHEM PANEL Total Protein 6.9 g/dL 6.4 - 8.4 09/29/2015 [facility] CHEM PANEL Albumin Lvl 3.7 g/dL 3.5 - 5.0 09/29/2015 [facility] CHEM PANEL Globulin 3.2 g/dL 2.7 - 4.2 09/29/2015 [facility] CHEM PANEL ALT 22 unit/L 0 - 65 09/29/2015 [facility] CHEM PANEL A/G Ratio 1.2 0.7 - 1.6 09/29/2015 [facility] CHEM PANEL Alk Phos 79 unit/L 39 - 136 09/29/2015 [facility] CHEM PANEL Bili Total 0.3 mg/dL 0.2 - 1.3 09/29/2015 [facility] CHEM PANEL AST 18 unit/L 0 - 37 09/29/2015 [facility] CHEM PANEL Sodium Lvl 134 meq/L 135 - 145 09/29/2015 [facility] CHEM PANEL Potassium Lvl 3.0 meq/L 3.5 - 5.1 09/29/2015 Result Comment: Critical Result(s) called to [place] at 09/28/2015 19:38 by KLS. Read back OK. [facility] CHEM PANEL Creatinine Lvl 0.57 mg/dL 0.50 - 1.40 09/29/2015 [facility] CHEM PANEL Glucose Lvl 107 mg/dL 70 - 99 09/29/2015 [facility] CHEM PANEL BUN 10 mg/dL 7 - 22 09/29/2015 [facility] HEMATOLOGY Basophils # 0.1 K/CMM 0.0 - 0.2 09/29/2015 [facility] HEMATOLOGY Monocytes # 1.0 K/CMM 0.0 - 0.8 09/29/2015 [facility] HEMATOLOGY Eosinophils # 0.3 K/CMM 0.0 - 0.5 09/29/2015 [facility] HEMATOLOGY Basophils 0.9 % 0.0 - 1.0 09/29/2015 [facility] HEMATOLOGY Eosinophils 2.6 % 0.0 - 4.0 09/29/2015 [facility] HEMATOLOGY Lymphocytes # 1.9 K/CMM 1.0 - 5.5 09/29/2015 [facility] HEMATOLOGY Segs-Bands # 6.8 K/CMM 1.5 - 8.1 09/29/2015 [facility] Lymphocytes 18.6 % 20.0 - 40.0 09/29/2015 [facility] Monocytes 10.0 % 2.0 - 12.0 09/29/2015 [facility] Segs 67.9 % 45.0 - 75.0 09/29/2015 [facility] PTT 29.6 s 22.9 - 35.8 09/29/2015 [facility] INR 1.06 0.85 - 1.17 09/29/2015 [facility] PT 14.1 s 12.0 - 14.7 09/29/2015 [facility] MCH 29.5 pg 27.0 - 31.0 09/29/2015 [facility] MCHC 33.4 g/dL 32.0 - 36.0 09/29/2015 [facility] WBC 10.1 K/CMM 3.7 - 10.4 09/29/2015 [facility] RBC 4.12 M/CMM 4.20 - 5.40 09/29/2015 [facility] RDW 13.4 % 11.5 - 14.5 09/29/2015 [facility] Platelet 320 K/CMM 133 - 450 09/29/2015 [facility] MPV 7.6 fL 7.4 - 10.4 09/29/2015 [facility] Hgb 12.2 g/dL 12.0 - 16.0 09/29/2015 [facility] Hct 36.5 % 36.0 - 48.0 09/29/2015 [facility] MCV 88.4 fL 80.0 - 98.0 09/29/2015 [facility] Chest 1view DX Chest 1view DX Study: Chest 1view DX AP Clinical Indication: Dyspnea; 3 days duration Comparison: Chest 09/25/2015 FINDINGS: The heart and mediastinum are normal. The lungs are emphysematous. No pneumonia, vascular congestion or pleural effusion is seen. There is mild levoscoliosis and spondylosis. IMPRESSION: Emphysema. No acute abnormality. SL: [id number] 09/28/2015 - - Read by: Sanford Henderson MD Dictated Date/time: 09/28/15 18:27 Electronically Signed by: Sanford Henderson MD 09/28/15 18:28 FINAL REPORT [facility] CARDIAC ENZYMES CK MB Index 1.6 0.0 - 2.5 09/26/2015 [facility] CARDIAC ENZYMES CK MB 1.2 ng/mL 0.5 - 3.6 09/26/2015 [facility] CARDIAC ENZYMES BNP 40 pg/mL <=100 pg/mL 09/26/2015 [facility] CARDIAC ENZYMES Total CK 77 unit/L 12 - 191 09/26/2015 [facility] CARDIAC ENZYMES Troponin-I null 0.00 - 0.40 09/26/2015 [facility] CHEM PANEL Magnesium Lvl 2.4 mg/dL 1.8 - 2.4 09/26/2015 [facility] ELECTROLYTES Sodium Lvl 131 meq/L 135 - 145 09/26/2015 [facility] ELECTROLYTES Potassium Lvl 3.4 meq/L 3.5 - 5.1 09/26/2015 [facility] ELECTROLYTES Creatinine Lvl 0.63 mg/dL 0.50 - 1.40 09/26/2015 [facility] ELECTROLYTES Chloride Lvl 98 meq/L 95 - 109 09/26/2015 [facility] ELECTROLYTES CO2 28 meq/L 24 - 32 09/26/2015 [facility] ELECTROLYTES Glucose Lvl 106 mg/dL 70 - 99 09/26/2015 [facility] ELECTROLYTES BUN 10 mg/dL 7 - 22 09/26/2015 [facility] ELECTROLYTES eGFR 89 mL/min/1.73m2 09/26/2015 Result Comment: The eGFR is calculated using the CKD-EPI formula. In most young, healthy individuals the eGFR will be >90 mL/min/1.73m2. The eGFR declines with age. An eGFR of 60-89 may be normal in some populations, particularly the elderly, for whom the CKD-EPI formula has not been extensively validated. Use of the eGFR is not recommended in the following populations: Individuals with unstable creatinine concentrations, including patients and those with serious co-morbid conditions. Patients with extremes in muscle mass or diet. The data above are obtained from the National Kidney Disease Education Program (NKDEP) which additionally recommends that when the eGFR is used in patients with extremes of body mass index for purposes of drug dosing, the eGFR should be multiplied by the estimated BMI. [facility] ELECTROLYTES Bili Total 0.2 mg/dL 0.2 - 1.3 09/26/2015 [facility] ELECTROLYTES AGAP 8.4 meq/L 10.0 - 20.0 09/26/2015 [facility] ELECTROLYTES Globulin 3.7 g/dL 2.7 - 4.2 09/26/2015 [facility] ELECTROLYTES A/G Ratio 1.1 0.7 - 1.6 09/26/2015 [facility] ELECTROLYTES B/C Ratio 16 6 - 25 09/26/2015 [facility] ELECTROLYTES Total Protein 7.7 g/dL 6.4 - 8.4 09/26/2015 [facility] ELECTROLYTES Albumin Lvl 4.0 g/dL 3.5 - 5.0 09/26/2015 [facility] ELECTROLYTES Calcium Lvl 8.4 mg/dL 8.5 - 10.5 09/26/2015 [facility] ELECTROLYTES AST 18 unit/L 0 - 37 09/26/2015 [facility] ELECTROLYTES Alk Phos 108 unit/L 39 - 136 09/26/2015 [facility] ELECTROLYTES ALT 22 unit/L 0 - 65 09/26/2015 [facility] HEMATOLOGY Monocytes # 1.0 K/CMM 0.0 - 0.8 09/26/2015 [facility] HEMATOLOGY Eosinophils 1.4 % 0.0 - 4.0 09/26/2015 [facility] HEMATOLOGY Basophils 0.6 % 0.0 - 1.0 09/26/2015 [facility] HEMATOLOGY Eosinophils # 0.2 K/CMM 0.0 - 0.5 09/26/2015 [facility] HEMATOLOGY Basophils # 0.1 K/CMM 0.0 - 0.2 09/26/2015 [facility] HEMATOLOGY Lymphocytes # 2.5 K/CMM 1.0 - 5.5 09/26/2015 [facility] HEMATOLOGY Segs 66.1 % 45.0 - 75.0 09/26/2015 [facility] HEMATOLOGY Segs-Bands # 7.4 K/CMM 1.5 - 8.1 09/26/2015 [facility] HEMATOLOGY Lymphocytes 22.7 % 20.0 - 40.0 09/26/2015 [facility] HEMATOLOGY Monocytes 9.2 % 2.0 - 12.0 09/26/2015 [facility] HEMATOLOGY Hgb 13.8 g/dL 12.0 - 16.0 09/26/2015 [facility] Platelet 352 K/CMM 133 - 450 09/26/2015 [facility] HEMATOLOGY MPV 7.1 fL 7.4 - 10.4 09/26/2015 [facility] MCH 29.4 pg 27.0 - 31.0 09/26/2015 [facility] MCHC 33.8 g/dL 32.0 - 36.0 09/26/2015 [facility] HEMATOLOGY RDW 13.5 % 11.5 - 14.5 09/26/2015 [facility] Hct 40.7 % 36.0 - 48.0 09/26/2015 [facility] MCV 87.0 fL 80.0 - 98.0 09/26/2015 [facility] WBC 11.2 K/CMM 3.7 - 10.4 09/26/2015 [facility] RBC 4.69 M/CMM 4.20 - 5.40 09/26/2015 [facility] PT 13.7 s 12.0 - 14.7 09/26/2015 [facility] INR 1.02 0.85 - 1.17 09/26/2015 [facility] PTT 28.1 s 22.9 - 35.8 09/26/2015 [facility] Chest 1view DX Chest 1view DX Study: Chest 1view DX AP Clinical Indication: Chest pain; weakness, flank pain Comparison: Chest 06/14/2015 FINDINGS: The heart and mediastinum are not remarkable. The lungs are moderately inflated. No pneumonia, vascular congestion or pleural effusion is seen. Thoracic spondylosis is noted. IMPRESSION: No significant abnormality. SL: [id number] 09/25/2015 - - Read by: Sanford Henderson MD Dictated Date/time: 09/25/15 23:43 Electronically Signed by: Sanford Henderson MD 09/25/15 23:44 FINAL REPORT [facility] URINE AND STOOL UA Urobilinogen <=1.0 mg/dL 0.1 - 1.0 09/14/2015 [facility] URINE AND STOOL UA Color Ltyellow 09/14/2015 [facility] URINE AND STOOL UA Turbidity Clear (09/14/15 3:05 PM) Clear 09/14/2015 [facility] URINE AND STOOL UA Spec Grav 1.010 <=1.030 09/14/2015 [facility] URINE AND STOOL UA pH 8.0 5.0 - 8.0 09/14/2015 [facility] URINE AND STOOL UA Bacteria Occasional /HPF None Seen /HPF 09/14/2015 [facility] URINE AND STOOL UA Sq Epi Occasional /LPF Few /LPF 09/14/2015 [facility] URINE AND STOOL UA WBC null 0 - 5 09/14/2015 [facility] URINE AND STOOL UA RBC 1 /HPF 0 - 2 09/14/2015 [facility] URINE AND STOOL UA Nitrite Negative (09/14/15 3:05 PM) Negative 09/14/2015 [facility] URINE AND STOOL UA Leuk Est Trace *ABN* (09/14/15 3:05 PM) Negative 09/14/2015 [facility] URINE AND STOOL UA Ketones Negative mg/dL Negative mg/dL 09/14/2015 [facility] URINE AND STOOL UA Bili Negative *NA* (09/14/15 3:05 PM) Negative 09/14/2015 [facility] URINE AND STOOL UA Blood Negative (09/14/15 3:05 PM) Negative 09/14/2015 [facility] URINE AND STOOL UA Protein Negative mg/dL Negative mg/dL 09/14/2015 [facility] URINE AND STOOL UA Glucose Negative mg/dL Negative mg/dL 09/14/2015 [facility] CARDIAC ENZYMES Troponin-I null 0.00 - 0.40 09/14/2015 [facility] CHEM PANEL B/C Ratio 20 6 - 25 09/14/2015 [facility] CHEM PANEL Globulin 3.4 g/dL 2.0 - 4.0 09/14/2015 [facility] CHEM PANEL A/G Ratio 1.1 0.7 - 1.6 09/14/2015 [facility] CHEM PANEL AGAP 13.5 meq/L 10.0 - 20.0 09/14/2015 [facility] CHEM PANEL eGFR 94 mL/min/1.73m2 09/14/2015 Result Comment: The eGFR is calculated using the CKD-EPI formula. In most young, healthy individuals the eGFR will be >90 mL/min/1.73m2. The eGFR declines with age. An eGFR of 60-89 may be normal in some populations, particularly the elderly, for whom the CKD-EPI formula has not been extensively validated. Use of the eGFR is not recommended in the following populations: Individuals with unstable creatinine concentrations, including patients and those with serious co-morbid conditions. Patients with extremes in muscle mass or diet. The data above are obtained from the National Kidney Disease Education Program (NKDEP) which additionally recommends that when the eGFR is used in patients with extremes of body mass index for purposes of drug dosing, the eGFR should be multiplied by the estimated BMI. [facility] CHEM PANEL Alk Phos 87 unit/L 39 - 136 09/14/2015 [facility] CHEM PANEL Bili Total 0.2 mg/dL 0.2 - 1.3 09/14/2015 [facility] CHEM PANEL BUN 11 mg/dL 7 - 22 09/14/2015 [facility] CHEM PANEL Glucose Lvl 128 mg/dL 70 - 99 09/14/2015 [facility] CHEM PANEL Sodium Lvl 134 meq/L 135 - 145 09/14/2015 [facility] CHEM PANEL Creatinine Lvl 0.54 mg/dL 0.50 - 1.40 09/14/2015 [facility] CHEM PANEL Potassium Lvl 3.5 meq/L 3.5 - 5.1 09/14/2015 [facility] CHEM PANEL Chloride Lvl 98 meq/L 95 - 109 09/14/2015 [facility] CHEM PANEL CO2 26 meq/L 24 - 32 09/14/2015 [facility] CHEM PANEL Calcium Lvl 8.8 mg/dL 8.5 - 10.5 09/14/2015 [facility] CHEM PANEL Total Protein 7.1 g/dL 6.4 - 8.4 09/14/2015 [facility] CHEM PANEL Albumin Lvl 3.7 g/dL 3.5 - 5.0 09/14/2015 [facility] CHEM PANEL ALT 26 unit/L 0 - 65 09/14/2015 [facility] CHEM PANEL AST 15 unit/L 0 - 37 09/14/2015 [facility] CHEM PANEL Amylase Lvl 42 unit/L 25 - 115 09/14/2015 [facility] CHEM PANEL Lipase Lvl 71 unit/L 73 - 393 09/14/2015 [facility] HEMATOLOGY MPV 7.3 fL 7.4 - 10.4 09/14/2015 [facility] HEMATOLOGY RDW 13.4 % 11.5 - 14.5 09/14/2015 [facility] HEMATOLOGY Platelet 298 K/CMM 133 - 450 09/14/2015 [facility] HEMATOLOGY Hct 37.6 % 36.0 - 48.0 09/14/2015 [facility] HEMATOLOGY MCV 86.4 fL 80.0 - 98.0 09/14/2015 [facility] MCH 29.6 pg 27.0 - 31.0 09/14/2015 [facility] MCHC 34.3 g/dL 32.0 - 36.0 09/14/2015 [facility] Hgb 12.9 g/dL 12.0 - 16.0 09/14/2015 [facility] WBC 7.8 K/CMM 3.7 - 10.4 09/14/2015 [facility] RBC 4.36 M/CMM 4.20 - 5.40 09/14/2015 [facility] Basophils 0.6 % 0.0 - 1.0 09/14/2015 [facility] Segs-Bands # 5.6 K/CMM 1.5 - 8.1 09/14/2015 [facility] Lymphocytes # 1.5 K/CMM 1.0 - 5.5 09/14/2015 [facility] Monocytes # 0.5 K/CMM 0.0 - 0.8 09/14/2015 [facility] Eosinophils # 0.1 K/CMM 0.0 - 0.5 09/14/2015 [facility] Segs 72.1 % 45.0 - 75.0 09/14/2015 [facility] Lymphocytes 18.7 % 20.0 - 40.0 09/14/2015 [facility] Monocytes 6.8 % 2.0 - 12.0 09/14/2015 [facility] Eosinophils 1.8 % 0.0 - 4.0 09/14/2015 [facility] Abdomen/Pelvis w IV contrast CT Abdomen/Pelvis w IV contrast CT CT ABDOMEN AND PELVIS WITH CONTRAST INDICATION: Vomiting and generalized abdominal pain COMPARISON: CT abdomen/pelvis 08/20/2015 DISCUSSION: ABDOMEN: There is no consolidation of the visible lung bases. Hepatic cysts are stable. There is mild bilateral hydroureteronephrosis. No urolithiasis is visible. The delayed scan does not demonstrate evidence of obstruction. The pancreas, spleen, gallbladder, and adrenal glands appear normal. There is a small hiatal hernia. There is colonic diverticulosis, without evidence of diverticulitis. There is no evidence of bowel obstruction. No free fluid or abnormal fluid collections are seen. No abdominal lymphadenopathy is identified. The abdominal aorta is normal in caliber. PELVIS: The bladder is unremarkable. The right ovary is mildly prominent for the patient's age, but otherwise grossly unremarkable. The uterus and left ovary are not seen, presumed absent. No pelvic lymphadenopathy is identified. BONES: No acute bony abnormalities are seen. There is grade 1 anterolisthesis at L4-L5. IMPRESSION: 1. Diverticulosis, without evidence of diverticulitis. 2. Hepatic cysts. 3. Stable nonspecific prominence of the right ovary. SL:[id number] 09/14/2015 - - Read by: Javed Fox MD Dictated Date/time: 09/14/15 17:27 Electronically Signed by: Javed Fox MD 09/14/15 17:34 FINAL REPORT [facility] Brain wo contrast CT Brain wo contrast CT EXAM: CT BRAIN WITHOUT CONTRAST DATE: 09/14/2015 3:26 PM CDT INDICATION: Headache with Dizziness and Giddiness nausea and vomiting. COMPARISON: TECHNIQUE: Routine axial CT images of the brain were obtained. IV contrast: None. DLP: mGy-cm FINDINGS: Non-contrast images of the head demonstrate no edema, hemorrhage, mass lesion or other acute intracranial abnormality. Diffuse cerebral atrophy. Nunez-white matter distinction is preserved. The ventricles are normal. The basal cisterns and sulci are normal in size. Mild chronic inflammatory change of the paranasal sinus. Partial opacification of the mastoid air cells. IMPRESSION: 1. No definite acute infarct or intracranial hemorrhage detected. If there is further concern for intracranial pathology or acute stroke, MRI of the brain may be performed for complete assessment. SL: [id number] 09/14/2015 - - Read by: Alfredo Pelayo MD Dictated Date/time: 09/14/15 17:33 Electronically Signed by: Alfredo Pelayo MD 09/14/15 17:34 FINAL REPORT [facility] CHEM PANEL eGFR 93 mL/min/1.73m2 08/25/2015 Result Comment: The eGFR is calculated using the CKD-EPI formula. In most young, healthy individuals the eGFR will be >90 mL/min/1.73m2. The eGFR declines with age. An eGFR of 60-89 may be normal in some populations, particularly the elderly, for whom the CKD-EPI formula has not been extensively validated. Use of the eGFR is not recommended in the following populations: Individuals with unstable creatinine concentrations, including patients and those with serious co-morbid conditions. Patients with extremes in muscle mass or diet. The data above are obtained from the National Kidney Disease Education Program (NKDEP) which additionally recommends that when the eGFR is used in patients with extremes of body mass index for purposes of drug dosing, the eGFR should be multiplied by the estimated BMI. [facility] CHEM PANEL Chloride Lvl 100 meq/L 95 - 109 08/25/2015 [facility] CHEM PANEL CO2 25 meq/L 24 - 32 08/25/2015 [facility] CHEM PANEL Potassium Lvl 3.9 meq/L 3.5 - 5.1 08/25/2015 [facility] CHEM PANEL Creatinine Lvl 0.55 mg/dL 0.50 - 1.40 08/25/2015 [facility] CHEM PANEL Glucose Lvl 108 mg/dL 70 - 99 08/25/2015 [facility] CHEM PANEL BUN 8 mg/dL 7 - 22 08/25/2015 [facility] CHEM PANEL Sodium Lvl 135 meq/L 135 - 145 08/25/2015 [facility] CHEM PANEL Bili Total 0.1 mg/dL 0.2 - 1.3 08/25/2015 [facility] CHEM PANEL AST 15 unit/L 0 - 37 08/25/2015 [facility] CHEM PANEL Calcium Lvl 8.1 mg/dL 8.5 - 10.5 08/25/2015 [facility] CHEM PANEL ALT 19 unit/L 0 - 65 08/25/2015 [facility] CHEM PANEL Alk Phos 78 unit/L 39 - 136 08/25/2015 [facility] CHEM PANEL Total Protein 6.8 g/dL 6.4 - 8.4 08/25/2015 [facility] CHEM PANEL Albumin Lvl 3.3 g/dL 3.5 - 5.0 08/25/2015 [facility] CHEM PANEL A/G Ratio 0.9 0.7 - 1.6 08/25/2015 [facility] CHEM PANEL Globulin 3.5 g/dL 2.0 - 4.0 08/25/2015 [facility] CHEM PANEL AGAP 13.9 meq/L 10.0 - 20.0 08/25/2015 [facility] CHEM PANEL B/C Ratio 15 6 - 25 08/25/2015 [facility] HEMATOLOGY Segs-Bands # 5.2 K/CMM 1.5 - 8.1 08/25/2015 [facility] HEMATOLOGY Eosinophils # 0.3 K/CMM 0.0 - 0.5 08/25/2015 [facility] HEMATOLOGY Lymphocytes # 2.3 K/CMM 1.0 - 5.5 08/25/2015 [facility] HEMATOLOGY Basophils # 0.1 K/CMM 0.0 - 0.2 08/25/2015 [facility] HEMATOLOGY Monocytes # 0.8 K/CMM 0.0 - 0.8 08/25/2015 [facility] HEMATOLOGY Lymphocytes 26.8 % 20.0 - 40.0 08/25/2015 [facility] HEMATOLOGY Segs 59.5 % 45.0 - 75.0 08/25/2015 [facility] HEMATOLOGY Basophils 1.0 % 0.0 - 1.0 08/25/2015 [facility] HEMATOLOGY Eosinophils 3.6 % 0.0 - 4.0 08/25/2015 [facility] HEMATOLOGY Monocytes 9.1 % 2.0 - 12.0 08/25/2015 [facility] HEMATOLOGY PT 13.5 s 12.0 - 14.7 08/25/2015 [facility] HEMATOLOGY INR 1.00 0.85 - 1.17 08/25/2015 [facility] HEMATOLOGY PTT 27.7 s 22.9 - 35.8 08/25/2015 [facility] MCHC 32.5 g/dL 32.0 - 36.0 08/25/2015 [facility] MCV 90.0 fL 80.0 - 98.0 08/25/2015 [facility] MCH 29.3 pg 27.0 - 31.0 08/25/2015 [facility] HEMATOLOGY Hct 41.2 % 36.0 - 48.0 08/25/2015 [facility] RBC 4.58 M/CMM 4.20 - 5.40 08/25/2015 [facility] WBC 8.7 K/CMM 3.7 - 10.4 08/25/2015 [facility] Hgb 13.4 g/dL 12.0 - 16.0 08/25/2015 [facility] MPV 7.3 fL 7.4 - 10.4 08/25/2015 [facility] Platelet 326 K/CMM 133 - 450 08/25/2015 [facility] HEMATOLOGY RDW 13.8 % 11.5 - 14.5 08/25/2015 [facility] URINE AND STOOL UA WBC null 0 - 5 08/25/2015 [facility] URINE AND STOOL UA RBC 1 /HPF 0 - 2 08/25/2015 [facility] URINE AND STOOL UA Sq Epi Occasional /LPF Few /LPF 08/25/2015 [facility] URINE AND STOOL UA Urobilinogen <=1.0 mg/dL 0.1 - 1.0 08/25/2015 [facility] URINE AND STOOL UA Color Ltyellow 08/25/2015 [facility] URINE AND STOOL UA Spec Grav 1.009 <=1.030 08/25/2015 [facility] URINE AND STOOL UA Turbidity Clear (08/25/15 5:52 PM) Clear 08/25/2015 [facility] URINE AND STOOL UA Protein Negative mg/dL Negative mg/dL 08/25/2015 [facility] URINE AND STOOL UA Glucose Negative mg/dL Negative mg/dL 08/25/2015 [facility] URINE AND STOOL UA pH 8.0 5.0 - 8.0 08/25/2015 [facility] URINE AND STOOL UA Bili Negative *NA* (08/25/15 5:52 PM) Negative 08/25/2015 [facility] URINE AND STOOL UA Blood Negative (08/25/15 5:52 PM) Negative 08/25/2015 [facility] URINE AND STOOL UA Ketones Negative mg/dL Negative mg/dL 08/25/2015 [facility] URINE AND STOOL UA Leuk Est Trace *ABN* (08/25/15 5:52 PM) Negative 08/25/2015 [facility] URINE AND STOOL UA Nitrite Negative (08/25/15 5:52 PM) Negative 08/25/2015 [facility] CARDIAC ENZYMES Total CK 70 unit/L 12 - 191 08/20/2015 [facility] CARDIAC ENZYMES CK MB Index 1.6 0.0 - 2.5 08/20/2015 [facility] CARDIAC ENZYMES Troponin-I 0.03 ng/mL 0.00 - 0.40 08/20/2015 [facility] CARDIAC ENZYMES CK MB 1.1 ng/mL 0.5 - 3.6 08/20/2015 [facility] CHEM PANEL Amylase Lvl 44 unit/L 25 - 115 08/20/2015 [facility] CHEM PANEL Bili Total 0.3 mg/dL 0.2 - 1.3 08/20/2015 [facility] CHEM PANEL Alk Phos 77 unit/L 39 - 136 08/20/2015 [facility] CHEM PANEL ALT 20 unit/L 0 - 65 08/20/2015 [facility] CHEM PANEL Albumin Lvl 3.5 g/dL 3.5 - 5.0 08/20/2015 [facility] CHEM PANEL AST 9 unit/L 0 - 37 08/20/2015 [facility] CHEM PANEL eGFR 92 mL/min/1.73m2 08/20/2015 Result Comment: The eGFR is calculated using the CKD-EPI formula. In most young, healthy individuals the eGFR will be >90 mL/min/1.73m2. The eGFR declines with age. An eGFR of 60-89 may be normal in some populations, particularly the elderly, for whom the CKD-EPI formula has not been extensively validated. Use of the eGFR is not recommended in the following populations: Individuals with unstable creatinine concentrations, including patients and those with serious co-morbid conditions. Patients with extremes in muscle mass or diet. The data above are obtained from the National Kidney Disease Education Program (NKDEP) which additionally recommends that when the eGFR is used in patients with extremes of body mass index for purposes of drug dosing, the eGFR should be multiplied by the estimated BMI. [facility] CHEM PANEL Calcium Lvl 8.5 mg/dL 8.5 - 10.5 08/20/2015 [facility] CHEM PANEL CO2 25 meq/L 24 - 32 08/20/2015 [facility] CHEM PANEL Total Protein 7.1 g/dL 6.4 - 8.4 08/20/2015 [facility] CHEM PANEL Potassium Lvl 3.3 meq/L 3.5 - 5.1 08/20/2015 [facility] CHEM PANEL Sodium Lvl 136 meq/L 135 - 145 08/20/2015 [facility] CHEM PANEL BUN 9 mg/dL 7 - 22 08/20/2015 [facility] CHEM PANEL Creatinine Lvl 0.57 mg/dL 0.50 - 1.40 08/20/2015 [facility] CHEM PANEL Glucose Lvl 140 mg/dL 70 - 99 08/20/2015 [facility] CHEM PANEL Chloride Lvl 100 meq/L 95 - 109 08/20/2015 [facility] CHEM PANEL AGAP 14.3 meq/L 10.0 - 20.0 08/20/2015 [facility] CHEM PANEL B/C Ratio 16 6 - 25 08/20/2015 [facility] CHEM PANEL Globulin 3.6 g/dL 2.0 - 4.0 08/20/2015 [facility] CHEM PANEL A/G Ratio 1.0 0.7 - 1.6 08/20/2015 [facility] CHEM PANEL Lipase Lvl 94 unit/L 73 - 393 08/20/2015 [facility] HEMATOLOGY Hct 38.3 % 36.0 - 48.0 08/20/2015 [facility] HEMATOLOGY Hgb 12.7 g/dL 12.0 - 16.0 08/20/2015 [facility] HEMATOLOGY RBC 4.31 M/CMM 4.20 - 5.40 08/20/2015 [facility] HEMATOLOGY WBC 8.7 K/CMM 3.7 - 10.4 08/20/2015 [facility] HEMATOLOGY MCV 88.9 fL 80.0 - 98.0 08/20/2015 [facility] HEMATOLOGY Platelet 307 K/CMM 133 - 450 08/20/2015 [facility] HEMATOLOGY RDW 14.2 % 11.5 - 14.5 08/20/2015 [facility] MCHC 33.1 g/dL 32.0 - 36.0 08/20/2015 [facility] MPV 7.9 fL 7.4 - 10.4 08/20/2015 [facility] MCH 29.4 pg 27.0 - 31.0 08/20/2015 [facility] HEMATOLOGY Lymphocytes 17.5 % 20.0 - 40.0 08/20/2015 [facility] HEMATOLOGY Segs 72.3 % 45.0 - 75.0 08/20/2015 [facility] HEMATOLOGY Basophils # 0.1 K/CMM 0.0 - 0.2 08/20/2015 [facility] HEMATOLOGY Basophils 1.2 % 0.0 - 1.0 08/20/2015 [facility] HEMATOLOGY Segs-Bands # 6.3 K/CMM 1.5 - 8.1 08/20/2015 [facility] Monocytes # 0.6 K/CMM 0.0 - 0.8 08/20/2015 [facility] HEMATOLOGY Eosinophils # 0.2 K/CMM 0.0 - 0.5 08/20/2015 [facility] Monocytes 7.2 % 2.0 - 12.0 08/20/2015 [facility] HEMATOLOGY Eosinophils 1.8 % 0.0 - 4.0 08/20/2015 [facility] Lymphocytes # 1.5 K/CMM 1.0 - 5.5 08/20/2015 [facility] URINE AND STOOL UA Bacteria Occasional /HPF None Seen /HPF 08/20/2015 [facility] URINE AND STOOL UA Mucus Few /LPF None Seen /LPF 08/20/2015 [facility] URINE AND STOOL UA RBC 1 /HPF 0 - 2 08/20/2015 [facility] URINE AND STOOL UA Sq Epi Occasional /LPF Few /LPF 08/20/2015 [facility] URINE AND STOOL UA WBC 14 /HPF 0 - 5 08/20/2015 [facility] URINE AND STOOL UA Leuk Est Large *ABN* (08/20/15 11:16 AM) Negative 08/20/2015 [facility] URINE AND STOOL UA Urobilinogen <=1.0 mg/dL 0.1 - 1.0 08/20/2015 [facility] URINE AND STOOL UA Color Ltyellow 08/20/2015 [facility] URINE AND STOOL UA Turbidity Clear (08/20/15 11:16 AM) Clear 08/20/2015 [facility] URINE AND STOOL UA Spec Grav 1.010 <=1.030 08/20/2015 [facility] URINE AND STOOL UA pH 7.0 5.0 - 8.0 08/20/2015 [facility] URINE AND STOOL UA Nitrite Negative (08/20/15 11:16 AM) Negative 08/20/2015 [facility] URINE AND STOOL UA Protein Negative mg/dL Negative mg/dL 08/20/2015 [facility] URINE AND STOOL UA Glucose Negative mg/dL Negative mg/dL 08/20/2015 [facility] URINE AND STOOL UA Ketones Negative mg/dL Negative mg/dL 08/20/2015 [facility] URINE AND STOOL UA Bili Negative *NA* (08/20/15 11:16 AM) Negative 08/20/2015 [facility] URINE AND STOOL UA Blood Negative (08/20/15 11:16 AM) Negative 08/20/2015 [facility] ED Abdomen/Pelvis IV contrast only CT ED Abdomen/Pelvis IV contrast only CT CT SCAN OF THE ABDOMEN AND PELVIS WITH CONTRAST. HX: Clinical Indication: Abdominal pain, acute; bilateral flank and abdominal pain. Nausea and vomiting.. Comparison: CT abdomen pelvis of 06/15/2015. Technique: Helical CT images were obtained from the domes the diaphragms to the symphysis pubis following the administration of intravenous contrast. No p.o. contrast was given. ABDOMEN AND PELVIS: Mild bibasilar atelectasis or scarring and mild bilateral lower lobe bronchiectasis. Stable mild cardiomegaly. No pericardial effusion. Distended gallbladder. Stable hepatic cysts. Splenic calcified granulomas are present. The spleen, pancreas, and adrenals are stable in appearance. The kidneys show good, symmetrical, excretion without hydronephrosis. Abundance of stool within the colon. Severe sigmoid descending diverticulosis. The bladder is nondistended. Postoperative hysterectomy. Stable about 3.2 cm right adnexal mass. Moderate lumbar spondylosis and facet arthrosis. IMPRESSION: 1. No acute abdominal or pelvic process detected. No definite obstructive uropathy. 2. Stable hepatic cysts. 3. Severe diverticulosis. 4. Postoperative hysterectomy. Stable about 3.2 cm right adnexal mass. SL: [id number] 08/20/2015 - - Read by: Alfredo Pelayo MD Dictated Date/time: 08/20/15 13:21 Electronically Signed by: Alfredo Pelayo MD 08/20/15 13:25 FINAL REPORT [facility] URINE AND STOOL UA Trans Epi 3 /LPF <=0 /LPF 06/15/2015 [facility] URINE AND STOOL UA Renal Epi 1 /LPF <=0 /LPF 06/15/2015 [facility] URINE AND STOOL UA Bacteria Occasional /HPF None Seen /HPF 06/15/2015 [facility] URINE AND STOOL UA WBC 2 /HPF 0 - 5 06/15/2015 [facility] URINE AND STOOL UA RBC 1 /HPF 0 - 2 06/15/2015 [facility] URINE AND STOOL UA Sq Epi None Seen 06/15/2015 [facility] URINE AND STOOL UA Spec Grav 1.004 <=1.030 06/15/2015 [facility] URINE AND STOOL UA Turbidity Clear (06/14/15 9:13 PM) Clear 06/15/2015 [facility] URINE AND STOOL UA pH 8.0 5.0 - 8.0 06/15/2015 [facility] URINE AND STOOL UA Leuk Est Large *ABN* (06/14/15 9:13 PM) Negative 06/15/2015 [facility] URINE AND STOOL UA Blood Small *ABN* (06/14/15 9:13 PM) Negative 06/15/2015 [facility] URINE AND STOOL UA Nitrite Negative (06/14/15 9:13 PM) Negative 06/15/2015 [facility] URINE AND STOOL UA Protein Negative mg/dL Negative mg/dL 06/15/2015 [facility] URINE AND STOOL UA Ketones Negative mg/dL Negative mg/dL 06/15/2015 [facility] URINE AND STOOL UA Bili Negative *NA* (06/14/15 9:13 PM) Negative 06/15/2015 [facility] URINE AND STOOL UA Glucose Negative mg/dL Negative mg/dL 06/15/2015 [facility] URINE AND STOOL UA Urobilinogen <=1.0 mg/dL 0.1 - 1.0 06/15/2015 [facility] URINE AND STOOL UA Color Ltyellow 06/15/2015 [facility] Renal Stone CT Renal Stone CT Study: Renal Stone CT Clinical Indication: Back pain; Comparison: CT stone 06/04/2015 Technique: Axial images with sagittal and coronal reconstructions were obtained without contrast, utilizing a renal stone protocol. CT Radiation Dose: PMB=398.65 mGy-cm FINDINGS: As previously, no urinary tract calculus, hydronephrosis or perinephric stranding is noted. The lung bases demonstrate mild interstitial scarring. Two hepatic cysts are unchanged, largest measuring 8.4 cm. The gallbladder and common duct are not remarkable. There are small calcified splenic granulomas. The adrenals and pancreas appear normal. Scattered diverticular changes involve the descending and sigmoid colonic segments, without evidence of diverticulitis. There is moderate constipation. The uterus is absent. Urinary bladder is not remarkable. No adnexal mass, adenopathy or ascites is seen. Extensive spondylosis is noted. IMPRESSION: 1. No acute abnormality or change. 2. No urinary tract pathology. 3. Stable hepatic cysts. 4. Diverticulosis and constipation. 5. Hysterectomy. 6. Extensive spondylosis. SL: [id number] 06/15/2015 - - Read by: Sanford Henderson MD Dictated Date/time: 06/15/15 01:43 Electronically Signed by: Sanford Henderson MD 06/15/15 01:49 FINAL REPORT [facility] Chest 1view DX Chest 1view DX Study: Chest 1view DX Clinical Indication: Abnormal chest sounds Comparison: 06/04/2015 FINDINGS: The cardiac silhouette is normal in size. The lungs are clear and without consolidation or congestion. No pleural effusion or pneumothorax is seen. The osseous structures are unremarkable. IMPRESSION: No acute cardiopulmonary disease. SL: [id number] 06/14/2015 - - Read by: Keith Siomn MD Dictated Date/time: 06/14/15 21:03 Electronically Signed by: Keith Simon MD 06/14/15 21:03 FINAL REPORT [facility] Spine lumbar 2 or 3 views DX Spine lumbar 2 or 3 views DX Study: Lumbar spine, 3 views Clinical Indication: Pain, Lumbar region Comparison: None FINDINGS: Multiple views of the lumbar spine show 5 nonrib-bearing lumbar vertebra. No acute compression fracture is seen. Grade 1 anterolisthesis of L4 over L5 by 6 cm is seen. Mild marginal osteophytes throughout the lumbar spine are seen. Severe disc height loss at L5-S1 is seen with vacuum disc phenomena, compatible with severe degenerative disc disease. Moderate degenerative disc disease at L3-L4 and L4-L5 is seen. There is mild degenerative disc disease at L2-L3. Arterial calcifications are seen. Advanced facet arthrosis is present in the lower lumbar spine. IMPRESSION: Advanced degenerative change of the lower lumbar spine without acute bony abnormality. SL: [id number] 06/14/2015 - - Read by: Keith Simon MD Dictated Date/time: 06/14/15 19:55 Electronically Signed by: Keith Simon MD 06/14/15 19:56 FINAL REPORT [facility] CHEM PANEL Magnesium Lvl 2.1 mg/dL 1.8 - 2.4 06/06/2015 [facility] CHEM PANEL eGFR 98 mL/min/1.73m2 06/06/2015 Result Comment: The eGFR is calculated using the CKD-EPI formula. In most young, healthy individuals the eGFR will be >90 mL/min/1.73m2. The eGFR declines with age. An eGFR of 60-89 may be normal in some populations, particularly the elderly, for whom the CKD-EPI formula has not been extensively validated. Use of the eGFR is not recommended in the following populations: Individuals with unstable creatinine concentrations, including patients and those with serious co-morbid conditions. Patients with extremes in muscle mass or diet. The data above are obtained from the National Kidney Disease Education Program (NKDEP) which additionally recommends that when the eGFR is used in patients with extremes of body mass index for purposes of drug dosing, the eGFR should be multiplied by the estimated BMI. [facility] CHEM PANEL Creatinine Lvl 0.49 mg/dL 0.50 - 1.40 06/06/2015 [facility] CHEM PANEL Sodium Lvl 137 meq/L 135 - 145 06/06/2015 [facility] CHEM PANEL BUN 7 mg/dL 7 - 22 06/06/2015 [facility] CHEM PANEL Potassium Lvl 3.4 meq/L 3.5 - 5.1 06/06/2015 [facility] CHEM PANEL Chloride Lvl 103 meq/L 95 - 109 06/06/2015 [facility] CHEM PANEL Glucose Lvl 88 mg/dL 70 - 99 06/06/2015 [facility] CHEM PANEL Calcium Lvl 8.4 mg/dL 8.5 - 10.5 06/06/2015 [facility] CHEM PANEL CO2 26 meq/L 24 - 32 06/06/2015 [facility] CHEM PANEL AGAP 11.4 meq/L 10.0 - 20.0 06/06/2015 [facility] CHEM PANEL Phosphorus 3.2 mg/dL 2.5 - 4.5 06/06/2015 [facility] RDW 14.6 % 11.5 - 14.5 06/06/2015 [facility] HEMATOLOGY Platelet 328 K/CMM 133 - 450 06/06/2015 [facility] MPV 7.0 fL 7.4 - 10.4 06/06/2015 [facility] WBC 10.9 K/CMM 3.7 - 10.4 06/06/2015 [facility] MCH 28.8 pg 27.0 - 31.0 06/06/2015 [facility] MCV 86.9 fL 80.0 - 98.0 06/06/2015 [facility] MCHC 33.1 g/dL 32.0 - 36.0 06/06/2015 [facility] Hgb 12.8 g/dL 12.0 - 16.0 06/06/2015 [facility] RBC 4.46 M/CMM 4.20 - 5.40 06/06/2015 [facility] Hct 38.8 % 36.0 - 48.0 06/06/2015 [facility] Segs 58.6 % 45.0 - 75.0 06/06/2015 [facility] Basophils 0.8 % 0.0 - 1.0 06/06/2015 [facility] HEMATOLOGY Eosinophils 2.4 % 0.0 - 4.0 06/06/2015 [facility] Monocytes 8.9 % 2.0 - 12.0 06/06/2015 [facility] Lymphocytes 29.3 % 20.0 - 40.0 06/06/2015 [facility] Basophils # 0.1 K/CMM 0.0 - 0.2 06/06/2015 [facility] Eosinophils # 0.3 K/CMM 0.0 - 0.5 06/06/2015 [facility] Monocytes # 1.0 K/CMM 0.0 - 0.8 06/06/2015 [facility] Lymphocytes # 3.2 K/CMM 1.0 - 5.5 06/06/2015 [facility] Segs-Bands # 6.4 K/CMM 1.5 - 8.1 06/06/2015 [facility] D-Dimer 0.24 ug/mL FEU 06/05/2015 [facility] Carotid artery Doppler bilat US Carotid artery Doppler bilat US Patient Name: RAMEZ SPRAGUE : 1940; Age: 74 years y/o Female MR: [id number] Study: Carotid artery Doppler bilat US 06/05/2015 9:38 AM CDT Ordering Physician: Josias Chun MD Clinical Indication: presyncopal episode; near syncope Comparison: None TECHNIQUE: Royal-scale, color Doppler and spectral Doppler of the carotid arteries was performed. Any reported ICA stenoses indirectly reference the distal internal carotid diameter as the denominator for the stenosis measurement, utilizing consensus panel criteria. FINDINGS: RIGHT: No significant plaque ICA PSV 55 cm/sec CCA PSV 101 cm/sec ICA/CCA ratio 0.4 Vertebral flow is antegrade. External carotid artery is patent. LEFT: No significant plaque ICA PSV 58 cm/sec CCA PSV 69 cm/sec ICA/CCA ratio 0.8 Vertebral flow is antegrade. External carotid artery is patent. IMPRESSION: 1. RIGHT: ICA stenosis <50 % by velocity criteria. 1. LEFT: ICA stenosis <50 % by velocity criteria. Consensus panel Doppler US criteria for diagnosis of ICA stenosis: Stenosis (%) ICA PSV (cm/sec) ICA/CCA ratio <50 <125 <2.0 50-69 125-230 2.0-4.0 >70 but less than >230 >4.0 near occlusion Near occlusion High, low, or Variable undetectable SL: [id number] SL: [id number] 06/05/2015 - - Read by: Marc Gonzalez MD Dictated Date/time: 06/05/15 12:59 Electronically Signed by: Marc Gonzalez MD 06/05/15 13:05 FINAL REPORT [facility] CARDIAC ENZYMES Troponin-I 0.03 ng/mL 0.00 - 0.40 06/05/2015 [facility] CARDIAC ENZYMES Total CK 21 unit/L 12 - 191 06/05/2015 [facility] LIPIDS VLDL 20 06/05/2015 [facility] LIPIDS LDL (Calculated) 146 mg/dL <=99 mg/dL 06/05/2015 [facility] LIPIDS Trig 98 mg/dL <=149 mg/dL 06/05/2015 [facility] LIPIDS Chol 231 mg/dL <=199 mg/dL 06/05/2015 [facility] LIPIDS HDL 65 mg/dL >=61 mg/dL 06/05/2015 [facility] LIPIDS CHD Risk 3.55 3.90 - 5.80 06/05/2015 [facility] CARDIAC ENZYMES Troponin-I 0.03 ng/mL 0.00 - 0.40 06/05/2015 [facility] CARDIAC ENZYMES Total CK 23 unit/L 12 - 191 06/05/2015 [facility] CHEM PANEL Phosphorus 3.0 mg/dL 2.5 - 4.5 06/05/2015 [facility] CHEM PANEL Magnesium Lvl 2.2 mg/dL 1.8 - 2.4 06/05/2015 [facility] PANEL eGFR 97 mL/min/1.73m2 06/05/2015 Result Comment: The eGFR is calculated using the CKD-EPI formula. In most young, healthy individuals the eGFR will be >90 mL/min/1.73m2. The eGFR declines with age. An eGFR of 60-89 may be normal in some populations, particularly the elderly, for whom the CKD-EPI formula has not been extensively validated. Use of the eGFR is not recommended in the following populations: Individuals with unstable creatinine concentrations, including patients and those with serious co-morbid conditions. Patients with extremes in muscle mass or diet. The data above are obtained from the National Kidney Disease Education Program (NKDEP) which additionally recommends that when the eGFR is used in patients with extremes of body mass index for purposes of drug dosing, the eGFR should be multiplied by the estimated BMI. [facility] CHEM PANEL CO2 27 meq/L 24 - 32 06/05/2015 [facility] CHEM PANEL Chloride Lvl 103 meq/L 95 - 109 06/05/2015 [facility] CHEM PANEL AGAP 11.1 meq/L 10.0 - 20.0 06/05/2015 [facility] CHEM PANEL Calcium Lvl 8.0 mg/dL 8.5 - 10.5 06/05/2015 [facility] CHEM PANEL Potassium Lvl 3.1 meq/L 3.5 - 5.1 06/05/2015 [facility] CHEM PANEL Creatinine Lvl 0.50 mg/dL 0.50 - 1.40 06/05/2015 [facility] CHEM PANEL Sodium Lvl 138 meq/L 135 - 145 06/05/2015 [facility] CHEM PANEL BUN 7 mg/dL 7 - 22 06/05/2015 [facility] CHEM PANEL Glucose Lvl 121 mg/dL 70 - 99 06/05/2015 [facility] CARDIAC ENZYMES CK MB Index 2.9 0.0 - 2.5 06/04/2015 [facility] CARDIAC ENZYMES CK MB 0.8 ng/mL 0.5 - 3.6 06/04/2015 [facility] CARDIAC ENZYMES Total CK 28 unit/L 12 - 191 06/04/2015 [facility] CARDIAC ENZYMES Troponin-I 0.03 ng/mL 0.00 - 0.40 06/04/2015 [facility] CARDIAC ENZYMES BNP 33 pg/mL <=100 pg/mL 06/04/2015 [facility] CHEM PANEL eGFR 93 mL/min/1.73m2 06/04/2015 Result Comment: The eGFR is calculated using the CKD-EPI formula. In most young, healthy individuals the eGFR will be >90 mL/min/1.73m2. The eGFR declines with age. An eGFR of 60-89 may be normal in some populations, particularly the elderly, for whom the CKD-EPI formula has not been extensively validated. Use of the eGFR is not recommended in the following populations: Individuals with unstable creatinine concentrations, including patients and those with serious co-morbid conditions. Patients with extremes in muscle mass or diet. The data above are obtained from the National Kidney Disease Education Program (NKDEP) which additionally recommends that when the eGFR is used in patients with extremes of body mass index for purposes of drug dosing, the eGFR should be multiplied by the estimated BMI. [facility] CHEM PANEL Alk Phos 79 unit/L 39 - 136 06/04/2015 [facility] CHEM PANEL ALT 21 unit/L 0 - 65 06/04/2015 [facility] CHEM PANEL Bili Total 0.2 mg/dL 0.2 - 1.3 06/04/2015 [facility] CHEM PANEL AST 11 unit/L 0 - 37 06/04/2015 [facility] CHEM PANEL Albumin Lvl 3.5 g/dL 3.5 - 5.0 06/04/2015 [facility] CHEM PANEL Calcium Lvl 8.7 mg/dL 8.5 - 10.5 06/04/2015 [facility] CHEM PANEL Chloride Lvl 96 meq/L 95 - 109 06/04/2015 [facility] CHEM PANEL Total Protein 6.9 g/dL 6.4 - 8.4 06/04/2015 [facility] CHEM PANEL CO2 30 meq/L 24 - 32 06/04/2015 [facility] CHEM PANEL Globulin 3.4 g/dL 2.0 - 4.0 06/04/2015 [facility] CHEM PANEL AGAP 10.7 meq/L 10.0 - 20.0 06/04/2015 [facility] CHEM PANEL A/G Ratio 1.0 0.7 - 1.6 06/04/2015 [facility] CHEM PANEL B/C Ratio 18 6 - 25 06/04/2015 [facility] CHEM PANEL Potassium Lvl 3.7 meq/L 3.5 - 5.1 06/04/2015 [facility] CHEM PANEL Sodium Lvl 133 meq/L 135 - 145 06/04/2015 [facility] CHEM PANEL BUN 10 mg/dL 7 - 22 06/04/2015 [facility] CHEM PANEL Creatinine Lvl 0.56 mg/dL 0.50 - 1.40 06/04/2015 [facility] CHEM PANEL Glucose Lvl 165 mg/dL 70 - 99 06/04/2015 [facility] CHEM PANEL Phosphorus 3.0 mg/dL 2.5 - 4.5 06/04/2015 [facility] CHEM PANEL Magnesium Lvl 2.3 mg/dL 1.8 - 2.4 06/04/2015 [facility] HEMATOLOGY Monocytes # 0.5 K/CMM 0.0 - 0.8 06/04/2015 [facility] HEMATOLOGY Basophils # 0.1 K/CMM 0.0 - 0.2 06/04/2015 [facility] HEMATOLOGY Eosinophils 0.1 % 0.0 - 4.0 06/04/2015 [facility] HEMATOLOGY Monocytes 6.0 % 2.0 - 12.0 06/04/2015 [facility] HEMATOLOGY Lymphocytes 9.0 % 20.0 - 40.0 06/04/2015 [facility] HEMATOLOGY Segs-Bands # 7.2 K/CMM 1.5 - 8.1 06/04/2015 [facility] HEMATOLOGY Basophils 0.6 % 0.0 - 1.0 06/04/2015 [facility] HEMATOLOGY Lymphocytes # 0.8 K/CMM 1.0 - 5.5 06/04/2015 [facility] HEMATOLOGY Segs 84.3 % 45.0 - 75.0 06/04/2015 [facility] HEMATOLOGY Plt Morph Normal (06/04/15 5:01 PM) 06/04/2015 [facility] HEMATOLOGY RBC Morph Normal (06/04/15 5:01 PM) 06/04/2015 [facility] HEMATOLOGY RBC 4.63 M/CMM 4.20 - 5.40 06/04/2015 [facility] HEMATOLOGY WBC 8.6 K/CMM 3.7 - 10.4 06/04/2015 [facility] HEMATOLOGY MPV 7.7 fL 7.4 - 10.4 06/04/2015 [facility] HEMATOLOGY Platelet 380 K/CMM 133 - 450 06/04/2015 [facility] HEMATOLOGY RDW 14.9 % 11.5 - 14.5 06/04/2015 [facility] HEMATOLOGY MCHC 33.0 g/dL 32.0 - 36.0 06/04/2015 [facility] MCH 28.8 pg 27.0 - 31.0 06/04/2015 [facility] HEMATOLOGY MCV 87.0 fL 80.0 - 98.0 06/04/2015 [facility] HEMATOLOGY Hct 40.3 % 36.0 - 48.0 06/04/2015 [facility] Hgb 13.3 g/dL 12.0 - 16.0 06/04/2015 [facility] HEMATOLOGY PTT 26.8 s 22.9 - 35.8 06/04/2015 [facility] HEMATOLOGY INR 1.03 0.85 - 1.17 06/04/2015 [facility] HEMATOLOGY PT 13.8 s 12.0 - 14.7 06/04/2015 [facility] URINE AND STOOL Occult Bld Stl Negative (06/04/15 5:01 PM) Negative 06/04/2015 [facility] URINE AND STOOL UA Urobilinogen <=1.0 mg/dL 0.1 - 1.0 06/04/2015 [facility] URINE AND STOOL UA Color Ltyellow 06/04/2015 [facility] URINE AND STOOL UA Spec Grav 1.006 <=1.030 06/04/2015 [facility] URINE AND STOOL UA Turbidity Clear (06/04/15 5:01 PM) Clear 06/04/2015 [facility] URINE AND STOOL UA Ketones Trace mg/dL Negative mg/dL 06/04/2015 [facility] URINE AND STOOL UA Glucose 50 mg/dL Negative mg/dL 06/04/2015 [facility] URINE AND STOOL UA Bili Negative *NA* (06/04/15 5:01 PM) Negative 06/04/2015 [facility] URINE AND STOOL UA Sq Epi Occasional /LPF Few /LPF 06/04/2015 [facility] URINE AND STOOL UA Nitrite Positive *ABN* (06/04/15 5:01 PM) Negative 06/04/2015 [facility] URINE AND STOOL UA Leuk Est Small *ABN* (06/04/15 5:01 PM) Negative 06/04/2015 [facility] URINE AND STOOL UA Protein Negative mg/dL Negative mg/dL 06/04/2015 [facility] URINE AND STOOL UA pH 8.0 5.0 - 8.0 06/04/2015 [facility] URINE AND STOOL UA WBC 7 /HPF 0 - 5 06/04/2015 [facility] URINE AND STOOL UA RBC 1 /HPF 0 - 2 06/04/2015 [facility] URINE AND STOOL UA Blood Negative (06/04/15 5:01 PM) Negative 06/04/2015 [facility] Abdomen/Pelvis wo IV contrast CT Abdomen/Pelvis wo IV contrast CT Study: CT abdomen and pelvis without contrast Clinical Indication: Back pain; left lower quadrant pain Comparison: CT abdomen pelvis 10/19/2014 Technique: Axial images with sagittal and coronal reconstructions were obtained without contrast. CT Radiation Dose: OSJ=190.68 mGy-cm FINDINGS: The lung bases are emphysematous with interstitial scarring. 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 Two hepatic cysts are identified in the right lobe, largest measuring 8.2 cm. The gallbladder is partially contracted. Common duct is not dilated. Spleen is normal in size and contains calcified granulomas. The kidneys, adrenals and pancreas are not remarkable. Extensive diverticular changes involve the descending and sigmoid colonic segments, without evidence of diverticulitis. No other intestinal lesion is identified, and there is no mesenteric inflammatory change. The uterus is absent. Urinary bladder is not remarkable. No adnexal mass, adenopathy or ascites is seen. There is moderate spondylosis. IMPRESSION: 1. No acute abnormality. No urinary tract pathology. 2. Extensive diverticulosis with constipation. 3. Hepatic cysts, unchanged. 5. Hysterectomy. 5. Moderate spondylosis. SL: [id number] 06/04/2015 - - Read by: Sanford Henderson MD Dictated Date/time: 06/04/15 18:43 Electronically Signed by: Sanford Henderson MD 06/04/15 19:00 FINAL REPORT [facility] Chest 1view DX Chest 1view DX Study: Chest 1view DX portable 06/04/2015 1701 hours Clinical Indication: Chest pain; Comparison: Chest 05/04/2015 FINDINGS: Cardiac size is normal. The thoracic aorta is slightly ectatic. The lungs are emphysematous but are incompletely inflated. No pneumonia, vascular congestion or pleural effusion is seen. IMPRESSION: No acute abnormality or change.. SL: [id number] 06/04/2015 - - Read by: Sanford Henderson MD Dictated Date/time: 06/04/15 17:43 Electronically Signed by: Sanford Henderson MD 06/04/15 17:44 FINAL REPORT [facility] CARDIAC ENZYMES CK MB Index 2.0 0.0 - 2.5 05/28/2015 [facility] CARDIAC ENZYMES CK MB 1.0 ng/mL 0.5 - 3.6 05/28/2015 [facility] CARDIAC ENZYMES Troponin-I 0.03 ng/mL 0.00 - 0.40 05/28/2015 [facility] CARDIAC ENZYMES Total CK 51 unit/L 12 - 191 05/28/2015 [facility] CHEM PANEL Magnesium Lvl 2.2 mg/dL 1.8 - 2.4 05/28/2015 [facility] CHEM PANEL Alk Phos 75 unit/L 39 - 136 05/28/2015 [facility] CHEM PANEL AGAP 10.8 meq/L 10.0 - 20.0 05/28/2015 [facility] CHEM PANEL AST 11 unit/L 0 - 37 05/28/2015 [facility] CHEM PANEL ALT 22 unit/L 0 - 65 05/28/2015 [facility] CHEM PANEL Bili Total 0.4 mg/dL 0.2 - 1.3 05/28/2015 [facility] CHEM PANEL B/C Ratio 15 6 - 25 05/28/2015 [facility] CHEM PANEL A/G Ratio 1.1 0.7 - 1.6 05/28/2015 [facility] CHEM PANEL Globulin 3.3 g/dL 2.0 - 4.0 05/28/2015 [facility] CHEM PANEL eGFR 85 mL/min/1.73m2 05/28/2015 Result Comment: The eGFR is calculated using the CKD-EPI formula. In most young, healthy individuals the eGFR will be >90 mL/min/1.73m2. The eGFR declines with age. An eGFR of 60-89 may be normal in some populations, particularly the elderly, for whom the CKD-EPI formula has not been extensively validated. Use of the eGFR is not recommended in the following populations: Individuals with unstable creatinine concentrations, including patients and those with serious co-morbid conditions. Patients with extremes in muscle mass or diet. The data above are obtained from the National Kidney Disease Education Program (NKDEP) which additionally recommends that when the eGFR is used in patients with extremes of body mass index for purposes of drug dosing, the eGFR should be multiplied by the estimated BMI. [facility] CHEM PANEL Albumin Lvl 3.7 g/dL 3.5 - 5.0 05/28/2015 [facility] CHEM PANEL CO2 27 meq/L 24 - 32 05/28/2015 [facility] CHEM PANEL Chloride Lvl 102 meq/L 95 - 109 05/28/2015 [facility] CHEM PANEL Total Protein 7.0 g/dL 6.4 - 8.4 05/28/2015 [facility] CHEM PANEL Calcium Lvl 9.0 mg/dL 8.5 - 10.5 05/28/2015 [facility] CHEM PANEL Sodium Lvl 136 meq/L 135 - 145 05/28/2015 [facility] CHEM PANEL Glucose Lvl 118 mg/dL 70 - 99 05/28/2015 [facility] CHEM PANEL Creatinine Lvl 0.71 mg/dL 0.50 - 1.40 05/28/2015 [facility] CHEM PANEL BUN 11 mg/dL 7 - 22 05/28/2015 [facility] CHEM PANEL Potassium Lvl 3.8 meq/L 3.5 - 5.1 05/28/2015 [facility] HEMATOLOGY Basophils # 0.1 K/CMM 0.0 - 0.2 05/28/2015 [facility] HEMATOLOGY Eosinophils # 0.1 K/CMM 0.0 - 0.5 05/28/2015 [facility] HEMATOLOGY Monocytes # 1.0 K/CMM 0.0 - 0.8 05/28/2015 [facility] HEMATOLOGY Monocytes 9.0 % 2.0 - 12.0 05/28/2015 [facility] HEMATOLOGY Eosinophils 0.7 % 0.0 - 4.0 05/28/2015 [facility] HEMATOLOGY Lymphocytes 21.2 % 20.0 - 40.0 05/28/2015 [facility] HEMATOLOGY Segs 68.6 % 45.0 - 75.0 05/28/2015 [facility] HEMATOLOGY Lymphocytes # 2.3 K/CMM 1.0 - 5.5 05/28/2015 [facility] HEMATOLOGY Segs-Bands # 7.3 K/CMM 1.5 - 8.1 05/28/2015 [facility] Basophils 0.5 % 0.0 - 1.0 05/28/2015 [facility] HEMATOLOGY MCV 85.7 fL 80.0 - 98.0 05/28/2015 [facility] MCH 28.8 pg 27.0 - 31.0 05/28/2015 [facility] RBC 4.47 M/CMM 4.20 - 5.40 05/28/2015 [facility] Hgb 12.9 g/dL 12.0 - 16.0 05/28/2015 [facility] MCHC 33.6 g/dL 32.0 - 36.0 05/28/2015 [facility] RDW 14.5 % 11.5 - 14.5 05/28/2015 [facility] MPV 7.4 fL 7.4 - 10.4 05/28/2015 [facility] Hct 38.3 % 36.0 - 48.0 05/28/2015 [facility] Platelet 331 K/CMM 133 - 450 05/28/2015 [facility] WBC 10.7 K/CMM 3.7 - 10.4 05/28/2015 [facility] CARDIAC ENZYMES Troponin-I 0.03 ng/mL 0.00 - 0.40 05/05/2015 [facility] CARDIAC ENZYMES CK MB 1.3 ng/mL 0.5 - 3.6 05/05/2015 [facility] CARDIAC ENZYMES Total CK 30 unit/L 12 - 191 05/05/2015 [facility] CARDIAC ENZYMES CK MB Index 4.3 0.0 - 2.5 05/05/2015 [facility] ELECTROLYTES CO2 28 meq/L 24 - 32 05/05/2015 [facility] ELECTROLYTES Calcium Lvl 8.4 mg/dL 8.5 - 10.5 05/05/2015 [facility] ELECTROLYTES eGFR 101 mL/min/1.73m2 05/05/2015 Result Comment: The eGFR is calculated using the CKD-EPI formula. In most young, healthy individuals the eGFR will be >90 mL/min/1.73m2. The eGFR declines with age. An eGFR of 60-89 may be normal in some populations, particularly the elderly, for whom the CKD-EPI formula has not been extensively validated. Use of the eGFR is not recommended in the following populations: Individuals with unstable creatinine concentrations, including patients and those with serious co-morbid conditions. Patients with extremes in muscle mass or diet. The data above are obtained from the National Kidney Disease Education Program (NKDEP) which additionally recommends that when the eGFR is used in patients with extremes of body mass index for purposes of drug dosing, the eGFR should be multiplied by the estimated BMI. [facility] ELECTROLYTES Sodium Lvl 140 meq/L 135 - 145 05/05/2015 [facility] ELECTROLYTES Potassium Lvl 3.7 meq/L 3.5 - 5.1 05/05/2015 [facility] ELECTROLYTES Chloride Lvl 105 meq/L 95 - 109 05/05/2015 [facility] ELECTROLYTES BUN 8 mg/dL 7 - 22 05/05/2015 [facility] ELECTROLYTES Creatinine Lvl 0.44 mg/dL 0.50 - 1.40 05/05/2015 [facility] ELECTROLYTES Glucose Lvl 91 mg/dL 70 - 99 05/05/2015 [facility] ELECTROLYTES AGAP 10.7 meq/L 10.0 - 20.0 05/05/2015 [facility] HEMATOLOGY MPV 7.4 fL 7.4 - 10.4 05/05/2015 [facility] HEMATOLOGY MCH 28.9 pg 27.0 - 31.0 05/05/2015 [facility] HEMATOLOGY Platelet 344 K/CMM 133 - 450 05/05/2015 [facility] HEMATOLOGY MCHC 33.4 g/dL 32.0 - 36.0 05/05/2015 [facility] HEMATOLOGY RDW 14.0 % 11.5 - 14.5 05/05/2015 [facility] HEMATOLOGY MCV 86.5 fL 80.0 - 98.0 05/05/2015 [facility] HEMATOLOGY Hgb 12.7 g/dL 12.0 - 16.0 05/05/2015 [facility] HEMATOLOGY Hct 38.0 % 36.0 - 48.0 05/05/2015 [facility] HEMATOLOGY WBC 8.5 K/CMM 3.7 - 10.4 05/05/2015 [facility] HEMATOLOGY RBC 4.39 M/CMM 4.20 - 5.40 05/05/2015 [facility] HEMATOLOGY Basophils # 0.1 K/CMM 0.0 - 0.2 05/05/2015 [facility] HEMATOLOGY Basophils 1.2 % 0.0 - 1.0 05/05/2015 [facility] HEMATOLOGY Segs-Bands # 4.4 K/CMM 1.5 - 8.1 05/05/2015 [facility] HEMATOLOGY Eosinophils 3.6 % 0.0 - 4.0 05/05/2015 [facility] HEMATOLOGY Lymphocytes 33.6 % 20.0 - 40.0 05/05/2015 [facility] HEMATOLOGY Monocytes 9.7 % 2.0 - 12.0 05/05/2015 [facility] HEMATOLOGY Segs 51.9 % 45.0 - 75.0 05/05/2015 [facility] HEMATOLOGY Eosinophils # 0.3 K/CMM 0.0 - 0.5 05/05/2015 [facility] HEMATOLOGY Monocytes # 0.8 K/CMM 0.0 - 0.8 05/05/2015 [facility] HEMATOLOGY Lymphocytes # 2.8 K/CMM 1.0 - 5.5 05/05/2015 [facility] CARDIAC ENZYMES Troponin-I 0.02 ng/mL 0.00 - 0.40 05/05/2015 [facility] CARDIAC ENZYMES CK MB 0.7 ng/mL 0.5 - 3.6 05/05/2015 [facility] CARDIAC ENZYMES Total CK 36 unit/L 12 - 191 05/05/2015 [facility] CARDIAC ENZYMES CK MB Index 1.9 0.0 - 2.5 05/05/2015 [facility] CARDIAC ENZYMES CK MB 1.2 ng/mL 0.5 - 3.6 05/04/2015 [facility] CARDIAC ENZYMES Total CK 40 unit/L 12 - 05/04/2015 [facility] CARDIAC ENZYMES BNP 25 pg/mL <=100 pg/mL 05/04/2015 [facility] CARDIAC ENZYMES Troponin-I 0.02 ng/mL 0.00 - 0.40 05/04/2015 [facility] CARDIAC ENZYMES CK MB Index 3.0 0.0 - 2.5 05/04/2015 [facility] CHEM PANEL eGFR 104 mL/min/1.73m2 05/04/2015 Result Comment: The eGFR is calculated using the CKD-EPI formula. In most young, healthy individuals the eGFR will be >90 mL/min/1.73m2. The eGFR declines with age. An eGFR of 60-89 may be normal in some populations, particularly the elderly, for whom the CKD-EPI formula has not been extensively validated. Use of the eGFR is not recommended in the following populations: Individuals with unstable creatinine concentrations, including patients and those with serious co-morbid conditions. Patients with extremes in muscle mass or diet. The data above are obtained from the National Kidney Disease Education Program (NKDEP) which additionally recommends that when the eGFR is used in patients with extremes of body mass index for purposes of drug dosing, the eGFR should be multiplied by the estimated BMI. [facility] CHEM PANEL Potassium Lvl 3.6 meq/L 3.5 - 5.1 05/04/2015 [facility] CHEM PANEL Chloride Lvl 100 meq/L 95 - 109 05/04/2015 [facility] CHEM PANEL Calcium Lvl 9.0 mg/dL 8.5 - 10.5 05/04/2015 [facility] CHEM PANEL CO2 28 meq/L 24 - 32 05/04/2015 [facility] CHEM PANEL Albumin Lvl 3.7 g/dL 3.5 - 5.0 05/04/2015 [facility] CHEM PANEL Total Protein 7.1 g/dL 6.4 - 8.4 05/04/2015 [facility] CHEM PANEL ALT 20 unit/L 0 - 65 05/04/2015 [facility] CHEM PANEL AST 11 unit/L 0 - 37 05/04/2015 [facility] CHEM PANEL Sodium Lvl 135 meq/L 135 - 145 05/04/2015 [facility] CHEM PANEL Creatinine Lvl 0.40 mg/dL 0.50 - 1.40 05/04/2015 [facility] CHEM PANEL Alk Phos 90 unit/L 39 - 136 05/04/2015 [facility] CHEM PANEL Bili Total 0.2 mg/dL 0.2 - 1.3 05/04/2015 [facility] CHEM PANEL BUN 8 mg/dL 7 - 22 05/04/2015 [facility] CHEM PANEL Glucose Lvl 107 mg/dL 70 - 99 05/04/2015 [facility] CHEM PANEL AGAP 10.6 meq/L 10.0 - 20.0 05/04/2015 [facility] CHEM PANEL B/C Ratio 20 6 - 25 05/04/2015 [facility] CHEM PANEL A/G Ratio 1.1 0.7 - 1.6 05/04/2015 [facility] CHEM PANEL Globulin 3.4 g/dL 2.0 - 4.0 05/04/2015 [facility] HEMATOLOGY PTT 27.6 s 22.9 - 35.8 05/04/2015 [facility] HEMATOLOGY PT 13.8 s 12.0 - 14.7 05/04/2015 [facility] HEMATOLOGY INR 1.03 0.85 - 1.17 05/04/2015 [facility] HEMATOLOGY Basophils # 0.1 K/CMM 0.0 - 0.2 05/04/2015 [facility] HEMATOLOGY Monocytes 8.8 % 2.0 - 12.0 05/04/2015 [facility] HEMATOLOGY Lymphocytes 19.3 % 20.0 - 40.0 05/04/2015 [facility] HEMATOLOGY Segs 69.0 % 45.0 - 75.0 05/04/2015 [facility] HEMATOLOGY Monocytes # 0.8 K/CMM 0.0 - 0.8 05/04/2015 [facility] HEMATOLOGY Eosinophils # 0.2 K/CMM 0.0 - 0.5 05/04/2015 [facility] HEMATOLOGY Lymphocytes # 1.8 K/CMM 1.0 - 5.5 05/04/2015 [facility] HEMATOLOGY Eosinophils 2.1 % 0.0 - 4.0 05/04/2015 [facility] HEMATOLOGY Segs-Bands # 6.3 K/CMM 1.5 - 8.1 05/04/2015 [facility] Basophils 0.8 % 0.0 - 1.0 05/04/2015 [facility] MCHC 33.1 g/dL 32.0 - 36.0 05/04/2015 [facility] RDW 14.1 % 11.5 - 14.5 05/04/2015 [facility] MCH 28.6 pg 27.0 - 31.0 05/04/2015 [facility] Hct 39.8 % 36.0 - 48.0 05/04/2015 [facility] MCV 86.5 fL 80.0 - 98.0 05/04/2015 [facility] Platelet 366 K/CMM 133 - 450 05/04/2015 [facility] MPV 7.6 fL 7.4 - 10.4 05/04/2015 [facility] RBC 4.60 M/CMM 4.20 - 5.40 05/04/2015 [facility] Hgb 13.2 g/dL 12.0 - 16.0 05/04/2015 [facility] WBC 9.2 K/CMM 3.7 - 10.4 05/04/2015 [facility] URINE AND STOOL UA Color Ltyellow 05/04/2015 [facility] URINE AND STOOL UA Urobilinogen <=1.0 mg/dL 0.1 - 1.0 05/04/2015 [facility] URINE AND STOOL UA Glucose Negative mg/dL Negative mg/dL 05/04/2015 [facility] URINE AND STOOL UA Ketones Negative mg/dL Negative mg/dL 05/04/2015 [facility] URINE AND STOOL UA Protein Negative mg/dL Negative mg/dL 05/04/2015 [facility] URINE AND STOOL UA pH 8.0 5.0 - 8.0 05/04/2015 [facility] URINE AND STOOL UA Bili Negative *NA* (05/04/15 2:42 PM) Negative 05/04/2015 [facility] URINE AND STOOL UA Blood Negative (05/04/15 2:42 PM) Negative 05/04/2015 [facility] URINE AND STOOL UA Sq Epi Occasional /LPF Few /LPF 05/04/2015 [facility] URINE AND STOOL UA Nitrite Negative (05/04/15 2:42 PM) Negative 05/04/2015 [facility] URINE AND STOOL UA WBC 3 /HPF 0 - 5 05/04/2015 [facility] URINE AND STOOL UA Leuk Est Trace *ABN* (05/04/15 2:42 PM) Negative 05/04/2015 [facility] URINE AND STOOL UA Spec Grav 1.006 <=1.030 05/04/2015 [facility] URINE AND STOOL UA Turbidity Clear (05/04/15 2:42 PM) Clear 05/04/2015 [facility] URINE AND STOOL UA RBC 2 /HPF 0 - 2 05/04/2015 [facility] Chest 1view DX Chest 1view DX EXAM: Chest 1view DX DATE: 05/04/2015 3:29 PM CDT INDICATION: Arrhythmias COMPARISON: 03/04/2015 IMPRESSION: Stable cardiac silhouette and mediastinum. Tortuous thoracic aorta. No focal consolidation, significant pleural effusion or pneumothorax. SL: [id number] 05/04/2015 - - Read by: Alfredo Pelayo MD Dictated Date/time: 05/04/15 15:50 Electronically Signed by: Alfredo Pelayo MD 05/04/15 15:51 FINAL REPORT [facility] CARDIAC ENZYMES Total CK 81 unit/L 12 - 191 03/04/2015 [facility] CARDIAC ENZYMES CK MB 1.0 ng/mL 0.5 - 3.6 03/04/2015 [facility] CARDIAC ENZYMES Troponin-I 0.02 ng/mL 0.00 - 0.40 03/04/2015 [facility] CARDIAC ENZYMES CK MB Index 1.2 0.0 - 2.5 03/04/2015 [facility] CHEM PANEL eGFR 88 mL/min/1.73m2 03/04/2015 Result Comment: The eGFR is calculated using the CKD-EPI formula. In most young, healthy individuals the eGFR will be >90 mL/min/1.73m2. The eGFR declines with age. An eGFR of 60-89 may be normal in some populations, particularly the elderly, for whom the CKD-EPI formula has not been extensively validated. Use of the eGFR is not recommended in the following populations: Individuals with unstable creatinine concentrations, including patients and those with serious co-morbid conditions. Patients with extremes in muscle mass or diet. The data above are obtained from the National Kidney Disease Education Program (NKDEP) which additionally recommends that when the eGFR is used in patients with extremes of body mass index for purposes of drug dosing, the eGFR should be multiplied by the estimated BMI. [facility] CHEM PANEL Chloride Lvl 103 meq/L 95 - 109 03/04/2015 [facility] CHEM PANEL Albumin Lvl 3.4 g/dL 3.5 - 5.0 03/04/2015 [facility] CHEM PANEL Total Protein 6.9 g/dL 6.4 - 8.4 03/04/2015 [facility] CHEM PANEL Potassium Lvl 3.4 meq/L 3.5 - 5.1 03/04/2015 [facility] CHEM PANEL Creatinine Lvl 0.68 mg/dL 0.50 - 1.40 03/04/2015 [facility] CHEM PANEL Sodium Lvl 137 meq/L 135 - 145 03/04/2015 [facility] CHEM PANEL CO2 25 meq/L 24 - 32 03/04/2015 [facility] CHEM PANEL Calcium Lvl 8.5 mg/dL 8.5 - 10.5 03/04/2015 [facility] CHEM PANEL BUN 12 mg/dL 7 - 22 03/04/2015 [facility] CHEM PANEL AST 16 unit/L 0 - 37 03/04/2015 [facility] CHEM PANEL Alk Phos 76 unit/L 39 - 136 03/04/2015 [facility] CHEM PANEL ALT 22 unit/L 0 - 65 03/04/2015 [facility] CHEM PANEL Bili Total 0.4 mg/dL 0.2 - 1.3 03/04/2015 [facility] CHEM PANEL AGAP 12.4 meq/L 10.0 - 20.0 03/04/2015 [facility] CHEM PANEL Glucose Lvl 125 mg/dL 70 - 99 03/04/2015 [facility] CHEM PANEL A/G Ratio 1.0 0.7 - 1.6 03/04/2015 [facility] CHEM PANEL B/C Ratio 18 6 - 25 03/04/2015 [facility] CHEM PANEL Globulin 3.5 g/dL 2.0 - 4.0 03/04/2015 [facility] HEMATOLOGY D-Dimer 0.57 ug/mL FEU 03/04/2015 [facility] HEMATOLOGY Hgb 12.9 g/dL 12.0 - 16.0 03/04/2015 [facility] HEMATOLOGY RBC 4.57 M/CMM 4.20 - 5.40 03/04/2015 [facility] HEMATOLOGY WBC 8.7 K/CMM 3.7 - 10.4 03/04/2015 [facility] MCH 28.2 pg 27.0 - 31.0 03/04/2015 [facility] MCV 86.4 fL 80.0 - 98.0 03/04/2015 [facility] Hct 39.5 % 36.0 - 48.0 03/04/2015 [facility] MPV 7.9 fL 7.4 - 10.4 03/04/2015 [facility] Platelet 282 K/CMM 133 - 450 03/04/2015 [facility] RDW 13.3 % 11.5 - 14.5 03/04/2015 [facility] MCHC 32.6 g/dL 32.0 - 36.0 03/04/2015 [facility] Eosinophils 1.1 % 0.0 - 4.0 03/04/2015 [facility] Monocytes 6.8 % 2.0 - 12.0 03/04/2015 [facility] Lymphocytes 13.9 % 20.0 - 40.0 03/04/2015 [facility] HEMATOLOGY Segs 77.6 % 45.0 - 75.0 03/04/2015 [facility] Monocytes # 0.6 K/CMM 0.0 - 0.8 03/04/2015 [facility] Segs-Bands # 6.7 K/CMM 1.5 - 8.1 03/04/2015 [facility] Basophils 0.6 % 0.0 - 1.0 03/04/2015 [facility] Eosinophils # 0.1 K/CMM 0.0 - 0.5 03/04/2015 [facility] Basophils # 0.1 K/CMM 0.0 - 0.2 03/04/2015 [facility] Lymphocytes # 1.2 K/CMM 1.0 - 5.5 03/04/2015 [facility] Chest 1view DX Chest 1view DX Portable one view AP chest, Mar 04, 2015 05:18:56 PM CLINICAL HISTORY: Chest pain ; back pain and shortness of breath TECHNIQUE: Routine AP view of the chest was obtained. COMPARISON: 11/09/2014 FINDINGS: Lungs are clear. No pleural effusion or radiographically detectable pneumothorax is present. Cardiomediastinal silhouette is normal. Bones are normal. IMPRESSION: No acute abnormality of the chest. SL: 14 03/04/2015 - - Read by: Juni Hadley MD Dictated Date/time: 03/04/15 17:46 Electronically Signed by: Juni Hadley MD 03/04/15 17:46 FINAL REPORT [facility] CARDIAC ENZYMES Total CK 61 unit/L 12 - 191 11/22/2014 [facility] CARDIAC ENZYMES CK MB 1.2 ng/mL 0.5 - 3.6 11/22/2014 [facility] CARDIAC ENZYMES Troponin-I 0.02 ng/mL 0.00 - 0.40 11/22/2014 [facility] CARDIAC ENZYMES CK MB Index 2.0 0.0 - 2.5 11/22/2014 [facility] ELECTROLYTES Chloride Lvl 104 meq/L 95 - 109 11/22/2014 [facility] ELECTROLYTES Potassium Lvl 3.5 meq/L 3.5 - 5.1 11/22/2014 [facility] ELECTROLYTES Sodium Lvl 136 meq/L 135 - 145 11/22/2014 [facility] ELECTROLYTES eGFR 74 mL/min/1.73m2 11/22/2014 Result Comment: The eGFR is calculated using the CKD-EPI formula. In most young, healthy individuals the eGFR will be >90 mL/min/1.73m2. The eGFR declines with age. An eGFR of 60-89 may be normal in some populations, particularly the elderly, for whom the CKD-EPI formula has not been extensively validated. Use of the eGFR is not recommended in the following populations: Individuals with unstable creatinine concentrations, including patients and those with serious co-morbid conditions. Patients with extremes in muscle mass or diet. The data above are obtained from the National Kidney Disease Education Program (NKDEP) which additionally recommends that when the eGFR is used in patients with extremes of body mass index for purposes of drug dosing, the eGFR should be multiplied by the estimated BMI. [facility] ELECTROLYTES A/G Ratio 1.0 0.7 - 1.6 11/22/2014 [facility] ELECTROLYTES Glucose Lvl 114 mg/dL 70 - 99 11/22/2014 [facility] ELECTROLYTES CO2 28 meq/L 24 - 32 11/22/2014 [facility] ELECTROLYTES Calcium Lvl 8.8 mg/dL 8.5 - 10.5 11/22/2014 [facility] ELECTROLYTES Albumin Lvl 3.5 g/dL 3.5 - 5.0 11/22/2014 [facility] ELECTROLYTES Total Protein 7.1 g/dL 6.4 - 8.4 11/22/2014 [facility] ELECTROLYTES ALT 22 unit/L 0 - 65 11/22/2014 [facility] ELECTROLYTES BUN 13 mg/dL 7 - 22 11/22/2014 [facility] ELECTROLYTES Creatinine Lvl 0.8 mg/dL 0.5 - 1.4 11/22/2014 [facility] ELECTROLYTES Bili Total 0.3 mg/dL 0.2 - 1.3 11/22/2014 [facility] ELECTROLYTES AST 9 unit/L 0 - 37 11/22/2014 [facility] ELECTROLYTES Alk Phos 95 unit/L 39 - 136 11/22/2014 [facility] ELECTROLYTES Globulin 3.6 g/dL 2.0 - 4.0 11/22/2014 [facility] ELECTROLYTES B/C Ratio 16 6 - 25 11/22/2014 [facility] ELECTROLYTES AGAP 7.5 meq/L 10.0 - 20.0 11/22/2014 [facility] HEMATOLOGY Platelet 310 K/CMM 133 - 450 11/22/2014 [facility] HEMATOLOGY MPV 8.3 fL 7.4 - 10.4 11/22/2014 [facility] HEMATOLOGY Hct 40.9 % 36.0 - 48.0 11/22/2014 [facility] HEMATOLOGY MCH 28.3 pg 27.0 - 31.0 11/22/2014 [facility] HEMATOLOGY MCV 88.4 fL 80.0 - 98.0 11/22/2014 [facility] HEMATOLOGY Hgb 13.1 g/dL 12.0 - 16.0 11/22/2014 [facility] HEMATOLOGY RDW 13.5 % 11.5 - 14.5 11/22/2014 [facility] HEMATOLOGY MCHC 32.0 g/dL 32.0 - 36.0 11/22/2014 [facility] HEMATOLOGY RBC 4.62 M/CMM 4.20 - 5.40 11/22/2014 [facility] HEMATOLOGY WBC 12.6 K/CMM 3.7 - 10.4 11/22/2014 [facility] HEMATOLOGY Monocytes # 0.9 K/CMM 0.0 - 0.8 11/22/2014 [facility] HEMATOLOGY Basophils # 0.1 K/CMM 0.0 - 0.2 11/22/2014 [facility] HEMATOLOGY Segs-Bands # 10.4 K/CMM 1.5 - 8.1 11/22/2014 [facility] HEMATOLOGY Lymphocytes # 1.2 K/CMM 1.0 - 5.5 11/22/2014 [facility] HEMATOLOGY Basophils 0.7 % 0.0 - 1.0 11/22/2014 [facility] HEMATOLOGY Monocytes 6.9 % 2.0 - 12.0 11/22/2014 [facility] HEMATOLOGY Eosinophils 0.1 % 0.0 - 4.0 11/22/2014 [facility] HEMATOLOGY Segs 82.6 % 45.0 - 75.0 11/22/2014 [facility] HEMATOLOGY Lymphocytes 9.7 % 20.0 - 40.0 11/22/2014 [facility] CARDIAC ENZYMES BNP 142 pg/mL <=100 pg/mL 11/09/2014 [facility] ELECTROLYTES AGAP 9.7 meq/L 10.0 - 20.0 11/09/2014 [facility] ELECTROLYTES B/C Ratio 17 6 - 25 11/09/2014 [facility] ELECTROLYTES Globulin 3.5 g/dL 2.0 - 4.0 11/09/2014 [facility] ELECTROLYTES A/G Ratio 1.0 0.7 - 1.6 11/09/2014 [facility] ELECTROLYTES Bili Total 0.1 mg/dL 0.2 - 1.3 11/09/2014 [facility] ELECTROLYTES ALT 23 unit/L 0 - 65 11/09/2014 [facility] ELECTROLYTES AST 16 unit/L 0 - 37 11/09/2014 [facility] ELECTROLYTES Alk Phos 97 unit/L 39 - 136 11/09/2014 [facility] ELECTROLYTES Total Protein 6.9 g/dL 6.4 - 8.4 11/09/2014 [facility] ELECTROLYTES CO2 27 meq/L 24 - 32 11/09/2014 [facility] ELECTROLYTES BUN 10 mg/dL 7 - 22 11/09/2014 [facility] ELECTROLYTES Glucose Lvl 115 mg/dL 70 - 99 11/09/2014 [facility] ELECTROLYTES eGFR 91 mL/min/1.73m2 11/09/2014 Result Comment: The eGFR is calculated using the CKD-EPI formula. In most young, healthy individuals the eGFR will be >90 mL/min/1.73m2. The eGFR declines with age. An eGFR of 60-89 may be normal in some populations, particularly the elderly, for whom the CKD-EPI formula has not been extensively validated. Use of the eGFR is not recommended in the following populations: Individuals with unstable creatinine concentrations, including patients and those with serious co-morbid conditions. Patients with extremes in muscle mass or diet. The data above are obtained from the National Kidney Disease Education Program (NKDEP) which additionally recommends that when the eGFR is used in patients with extremes of body mass index for purposes of drug dosing, the eGFR should be multiplied by the estimated BMI. [facility] ELECTROLYTES Sodium Lvl 135 meq/L 135 - 145 11/09/2014 [facility] ELECTROLYTES Potassium Lvl 3.7 meq/L 3.5 - 5.1 11/09/2014 [facility] ELECTROLYTES Creatinine Lvl 0.6 mg/dL 0.5 - 1.4 11/09/2014 [facility] ELECTROLYTES Calcium Lvl 8.3 mg/dL 8.5 - 10.5 11/09/2014 [facility] ELECTROLYTES Chloride Lvl 102 meq/L 95 - 109 11/09/2014 [facility] ELECTROLYTES Albumin Lvl 3.4 g/dL 3.5 - 5.0 11/09/2014 [facility] HEMATOLOGY MPV 8.2 fL 7.4 - 10.4 11/09/2014 [facility] Platelet 241 K/CMM 133 - 450 11/09/2014 [facility] RDW 13.8 % 11.5 - 14.5 11/09/2014 [facility] MCHC 33.0 g/dL 32.0 - 36.0 11/09/2014 [facility] MCH 29.2 pg 27.0 - 31.0 11/09/2014 [facility] MCV 88.7 fL 80.0 - 98.0 11/09/2014 [facility] Hct 35.8 % 36.0 - 48.0 11/09/2014 [facility] Hgb 11.8 g/dL 12.0 - 16.0 11/09/2014 [facility] RBC 4.04 M/CMM 4.20 - 5.40 11/09/2014 [facility] WBC 11.9 K/CMM 3.7 - 10.4 11/09/2014 [facility] Basophils # 0.1 K/CMM 0.0 - 0.2 11/09/2014 [facility] HEMATOLOGY Eosinophils # 0.5 K/CMM 0.0 - 0.5 11/09/2014 [facility] HEMATOLOGY Monocytes # 1.1 K/CMM 0.0 - 0.8 11/09/2014 [facility] HEMATOLOGY Lymphocytes # 2.1 K/CMM 1.0 - 5.5 11/09/2014 [facility] HEMATOLOGY Segs-Bands # 8.2 K/CMM 1.5 - 8.1 11/09/2014 [facility] Basophils 0.7 % 0.0 - 1.0 11/09/2014 [facility] HEMATOLOGY Eosinophils 4.0 % 0.0 - 4.0 11/09/2014 [facility] HEMATOLOGY Monocytes 9.1 % 2.0 - 12.0 11/09/2014 [facility] HEMATOLOGY Lymphocytes 17.7 % 20.0 - 40.0 11/09/2014 [facility] HEMATOLOGY Segs 68.5 % 45.0 - 75.0 11/09/2014 [facility] VIRAL - SEROLOGY Influ A Negative (11/09/14 3:57 AM) Negative 11/09/2014 [facility] VIRAL - SEROLOGY Influ B Negative (11/09/14 3:57 AM) Negative 11/09/2014 [facility] Chest 1view DX Chest 1view DX CHEST, AP. INDICATION: Cough COMPARISON: None. Cardiac size is normal. The thoracic aorta is slightly ectatic. The lungs are moderately inflated. No pneumonia, vascular congestion or pleural effusion is seen. Minor thoracic spondylosis is noted. IMPRESSION: No acute abnormality. SL: 12 11/09/2014 - - Read by: Sanford Henderson MD Dictated Date/time: 11/09/14 03:25 Electronically Signed by: Sanford Henderson MD 11/09/14 03:26 FINAL REPORT [facility] CHEM PANEL Amylase Lvl 50 unit/L 25 - 115 10/19/2014 [facility] CHEM PANEL Lipase Lvl 101 unit/L 73 - 393 10/19/2014 [facility] ELECTROLYTES Chloride Lvl 100 meq/L 95 - 109 10/19/2014 [facility] ELECTROLYTES Sodium Lvl 135 meq/L 135 - 145 10/19/2014 [facility] ELECTROLYTES Potassium Lvl 4.2 meq/L 3.5 - 5.1 10/19/2014 [facility] ELECTROLYTES Calcium Lvl 8.8 mg/dL 8.5 - 10.5 10/19/2014 [facility] ELECTROLYTES eGFR 91 mL/min/1.73m2 10/19/2014 Result Comment: The eGFR is calculated using the CKD-EPI formula. In most young, healthy individuals the eGFR will be >90 mL/min/1.73m2. The eGFR declines with age. An eGFR of 60-89 may be normal in some populations, particularly the elderly, for whom the CKD-EPI formula has not been extensively validated. Use of the eGFR is not recommended in the following populations: Individuals with unstable creatinine concentrations, including patients and those with serious co-morbid conditions. Patients with extremes in muscle mass or diet. The data above are obtained from the National Kidney Disease Education Program (NKDEP) which additionally recommends that when the eGFR is used in patients with extremes of body mass index for purposes of drug dosing, the eGFR should be multiplied by the estimated BMI. [facility] ELECTROLYTES ALT 25 unit/L 0 - 65 10/19/2014 [facility] ELECTROLYTES AST 16 unit/L 0 - 37 10/19/2014 [facility] ELECTROLYTES Alk Phos 101 unit/L 39 - 136 10/19/2014 [facility] ELECTROLYTES Bili Total 0.2 mg/dL 0.2 - 1.3 10/19/2014 [facility] ELECTROLYTES Creatinine Lvl 0.6 mg/dL 0.5 - 1.4 10/19/2014 [facility] ELECTROLYTES CO2 29 meq/L 24 - 32 10/19/2014 [facility] ELECTROLYTES Albumin Lvl 3.6 g/dL 3.5 - 5.0 10/19/2014 [facility] ELECTROLYTES Total Protein 7.3 g/dL 6.4 - 8.4 10/19/2014 [facility] ELECTROLYTES BUN 10 mg/dL 7 - 22 10/19/2014 [facility] ELECTROLYTES Glucose Lvl 109 mg/dL 70 - 99 10/19/2014 [facility] ELECTROLYTES A/G Ratio 1.0 0.7 - 1.6 10/19/2014 [facility] ELECTROLYTES Globulin 3.7 g/dL 2.0 - 4.0 10/19/2014 [facility] ELECTROLYTES B/C Ratio 17 6 - 25 10/19/2014 [facility] ELECTROLYTES AGAP 10.2 meq/L 10.0 - 20.0 10/19/2014 [facility] HEMATOLOGY Monocytes 8.4 % 2.0 - 12.0 10/19/2014 [facility] HEMATOLOGY Lymphocytes 21.0 % 20.0 - 40.0 10/19/2014 [facility] HEMATOLOGY Segs 63.9 % 45.0 - 75.0 10/19/2014 [facility] HEMATOLOGY Basophils # 0.1 K/CMM 0.0 - 0.2 10/19/2014 [facility] HEMATOLOGY Segs-Bands # 6.3 K/CMM 1.5 - 8.1 10/19/2014 [facility] HEMATOLOGY Basophils 0.8 % 0.0 - 1.0 10/19/2014 [facility] HEMATOLOGY Eosinophils 5.9 % 0.0 - 4.0 10/19/2014 [facility] HEMATOLOGY Eosinophils # 0.6 K/CMM 0.0 - 0.5 10/19/2014 [facility] HEMATOLOGY Monocytes # 0.8 K/CMM 0.0 - 0.8 10/19/2014 [facility] HEMATOLOGY Lymphocytes # 2.1 K/CMM 1.0 - 5.5 10/19/2014 [facility] MCH 29.4 pg 27.0 - 31.0 10/19/2014 [facility] HEMATOLOGY MCV 88.1 fL 80.0 - 98.0 10/19/2014 [facility] HEMATOLOGY MPV 7.7 fL 7.4 - 10.4 10/19/2014 [facility] HEMATOLOGY Platelet 291 K/CMM 133 - 450 10/19/2014 [facility] HEMATOLOGY RDW 14.1 % 11.5 - 14.5 10/19/2014 [facility] MCHC 33.4 g/dL 32.0 - 36.0 10/19/2014 [facility] Hct 39.6 % 36.0 - 48.0 10/19/2014 [facility] Hgb 13.2 g/dL 12.0 - 16.0 10/19/2014 [facility] RBC 4.49 M/CMM 4.20 - 5.40 10/19/2014 [facility] HEMATOLOGY WBC 9.8 K/CMM 3.7 - 10.4 10/19/2014 [facility] URINE AND STOOL UA Urobilinogen <=1.0 mg/dL 0.1 - 1.0 10/19/2014 [facility] URINE AND STOOL UA Nitrite Negative (10/19/14 8:10 AM) Negative 10/19/2014 [facility] URINE AND STOOL UA RBC 2 /HPF 0 - 2 10/19/2014 [facility] URINE AND STOOL UA Glucose Negative mg/dL Negative mg/dL 10/19/2014 [facility] URINE AND STOOL UA Ketones Negative mg/dL Negative mg/dL 10/19/2014 [facility] URINE AND STOOL UA Protein Negative mg/dL Negative mg/dL 10/19/2014 [facility] URINE AND STOOL UA Blood Negative (10/19/14 8:10 AM) Negative 10/19/2014 [facility] URINE AND STOOL UA Bili Negative *NA* (10/19/14 8:10 AM) Negative 10/19/2014 [facility] URINE AND STOOL UA pH 6.0 5.0 - 8.0 10/19/2014 [facility] URINE AND STOOL UA Leuk Est Trace *ABN* (10/19/14 8:10 AM) Negative 10/19/2014 [facility] URINE AND STOOL UA Sq Epi Occasional /LPF Few /LPF 10/19/2014 [facility] URINE AND STOOL UA WBC 1 /HPF 0 - 5 10/19/2014 [facility] URINE AND STOOL UA Spec Grav 1.016 <=1.030 10/19/2014 [facility] URINE AND STOOL UA Color Yellow *NA* (10/19/14 8:10 AM) Yellow 10/19/2014 [facility] URINE AND STOOL UA Turbidity Clear (10/19/14 8:10 AM) Clear 10/19/2014 [facility] Abdomen/Pelvis wo IV contrast CT Abdomen/Pelvis wo IV contrast CT Examination: Renal stone protocol CT scan. HISTORY: Abdominal pain, acute TECHNIQUE: Multiple axial CT images of the abdomen and pelvis were obtained without the administration of intravenous contrast using the renal stone protocol. Multiplanar reformatted images were performed. COMPARISON: None. DLP: 700.82 FINDINGS: The lung bases are clear bilaterally. The kidneys are normal in size and morphology without hydronephrosis or perinephric stranding. No renal or ureteral stones are seen. Bladder is mildly distended. The patient is status post hysterectomy. Left ovary is unremarkable. 3.2 cm soft tissue density right ovarian lesion is seen. Multiple hypodense hepatic simple cysts are seen with largest measuring 8.5 cm. Gallbladder, pancreas, and adrenal glands are within the normal limits imposed by the lack of intravenous contrast. Calcified splenic granulomas are seen. Multiple diverticula of the sigmoid and descending colon are seen without inflammatory change to suggest acute diverticulitis. Appendix is not visualized. Arterial calcifications are identified. No intraperitoneal free air, free fluid, or pathologic adenopathy is seen. Degenerative changes of the lumbar spine are seen. Severe right hip osteoarthrosis is present. IMPRESSION: 1. No acute intra-abdominal/pelvic abnormality and no evidence of obstructing renal collecting system stone. 2. Indeterminate 3.2 cm soft tissue density right ovarian lesion. Further evaluation with pelvic ultrasound on a nonemergent basis is recommended. SL: 16 10/19/2014 - - Read by: Keith Simon MD Dictated Date/time: 10/19/14 08:35 Electronically Signed by: Keith Simon MD 10/19/14 08:39 FINAL REPORT [facility] CARDIAC ENZYMES Troponin-I 0.05 ng/mL 0.00 - 0.40 09/02/2014 [facility] CHEM PANEL Lipase Lvl 81 unit/L 73 - 393 09/02/2014 [facility] ELECTROLYTES Sodium Lvl 139 meq/L 135 - 145 09/02/2014 [facility] ELECTROLYTES Potassium Lvl 3.4 meq/L 3.5 - 5.1 09/02/2014 [facility] ELECTROLYTES Chloride Lvl 103 meq/L 95 - 109 09/02/2014 [facility] ELECTROLYTES Calcium Lvl 8.8 mg/dL 8.5 - 10.5 09/02/2014 [facility] ELECTROLYTES eGFR 87 mL/min/1.73m2 09/02/2014 Result Comment: The eGFR is calculated using the CKD-EPI formula. In most young, healthy individuals the eGFR will be >90 mL/min/1.73m2. The eGFR declines with age. An eGFR of 60-89 may be normal in some populations, particularly the elderly, for whom the CKD-EPI formula has not been extensively validated. Use of the eGFR is not recommended in the following populations: Individuals with unstable creatinine concentrations, including patients and those with serious co-morbid conditions. Patients with extremes in muscle mass or diet. The data above are obtained from the National Kidney Disease Education Program (NKDEP) which additionally recommends that when the eGFR is used in patients with extremes of body mass index for purposes of drug dosing, the eGFR should be multiplied by the estimated BMI. [facility] ELECTROLYTES Bili Total 0.2 mg/dL 0.2 - 1.3 09/02/2014 [facility] ELECTROLYTES Alk Phos 90 unit/L 39 - 136 09/02/2014 [facility] ELECTROLYTES Albumin Lvl 3.5 g/dL 3.5 - 5.0 09/02/2014 [facility] ELECTROLYTES AST 13 unit/L 0 - 37 09/02/2014 [facility] ELECTROLYTES ALT 22 unit/L 0 - 65 09/02/2014 [facility] ELECTROLYTES Total Protein 7.2 g/dL 6.4 - 8.4 09/02/2014 [facility] ELECTROLYTES CO2 28 meq/L 24 - 32 09/02/2014 [facility] ELECTROLYTES Creatinine Lvl 0.7 mg/dL 0.5 - 1.4 09/02/2014 [facility] ELECTROLYTES BUN 9 mg/dL 7 - 22 09/02/2014 [facility] ELECTROLYTES Glucose Lvl 98 mg/dL 70 - 99 09/02/2014 [facility] ELECTROLYTES Globulin 3.7 g/dL 2.0 - 4.0 09/02/2014 [facility] ELECTROLYTES B/C Ratio 13 6 - 25 09/02/2014 [facility] ELECTROLYTES A/G Ratio 0.9 0.7 - 1.6 09/02/2014 [facility] ELECTROLYTES AGAP 11.4 meq/L 10.0 - 20.0 09/02/2014 [facility] HEMATOLOGY Basophils # 0.1 K/CMM 0.0 - 0.2 09/02/2014 [facility] HEMATOLOGY Eosinophils # 0.2 K/CMM 0.0 - 0.5 09/02/2014 [facility] HEMATOLOGY Monocytes # 0.8 K/CMM 0.0 - 0.8 09/02/2014 [facility] HEMATOLOGY Lymphocytes 32.1 % 20.0 - 40.0 09/02/2014 [facility] HEMATOLOGY Segs 55.9 % 45.0 - 75.0 09/02/2014 [facility] HEMATOLOGY Segs-Bands # 4.9 K/CMM 1.5 - 8.1 09/02/2014 [facility] HEMATOLOGY Eosinophils 1.8 % 0.0 - 4.0 09/02/2014 [facility] HEMATOLOGY Lymphocytes # 2.8 K/CMM 1.0 - 5.5 09/02/2014 [facility] HEMATOLOGY Basophils 0.7 % 0.0 - 1.0 09/02/2014 [facility] HEMATOLOGY Monocytes 9.5 % 2.0 - 12.0 09/02/2014 [facility] HEMATOLOGY MPV 7.6 fL 7.4 - 10.4 09/02/2014 [facility] HEMATOLOGY Platelet 278 K/CMM 133 - 450 09/02/2014 [facility] HEMATOLOGY RDW 14.1 % 11.5 - 14.5 09/02/2014 [facility] MCHC 33.7 g/dL 32.0 - 36.0 09/02/2014 [facility] HEMATOLOGY MCV 87.3 fL 80.0 - 98.0 09/02/2014 [facility] HEMATOLOGY Hct 39.3 % 36.0 - 48.0 09/02/2014 [facility] MCH 29.4 pg 27.0 - 31.0 09/02/2014 [facility] HEMATOLOGY WBC 8.8 K/CMM 3.7 - 10.4 09/02/2014 [facility] HEMATOLOGY RBC 4.51 M/CMM 4.20 - 5.40 09/02/2014 [facility] HEMATOLOGY Hgb 13.3 g/dL 12.0 - 16.0 09/02/2014 [facility] URINE AND STOOL UA Urobilinogen <=1.0 mg/dL 0.1 - 1.0 09/02/2014 [facility] URINE AND STOOL UA Glucose Negative mg/dL Negative mg/dL 09/02/2014 [facility] URINE AND STOOL UA Ketones Negative mg/dL Negative mg/dL 09/02/2014 [facility] URINE AND STOOL UA Protein Negative mg/dL Negative mg/dL 09/02/2014 [facility] URINE AND STOOL UA Color Yellow *NA* (09/02/14 3:08 AM) Yellow 09/02/2014 [facility] URINE AND STOOL UA Turbidity Clear (09/02/14 3:08 AM) Clear 09/02/2014 [facility] URINE AND STOOL UA Spec Grav 1.010 <=1.030 09/02/2014 [facility] URINE AND STOOL UA pH 7.0 5.0 - 8.0 09/02/2014 [facility] URINE AND STOOL UA Bili Negative *NA* (09/02/14 3:08 AM) Negative 09/02/2014 [facility] URINE AND STOOL UA RBC 3 /HPF 0 - 2 09/02/2014 [facility] URINE AND STOOL UA Blood Negative (09/02/14 3:08 AM) Negative 09/02/2014 [facility] URINE AND STOOL UA Nitrite Negative (09/02/14 3:08 AM) Negative 09/02/2014 [facility] URINE AND STOOL UA Leuk Est Small *ABN* (09/02/14 3:08 AM) Negative 09/02/2014 [facility] URINE AND STOOL UA Sq Epi Occasional /LPF Few /LPF 09/02/2014 [facility] URINE AND STOOL UA WBC 4 /HPF 0 - 5 09/02/2014 [facility] Chest Pulmonary Embolism CTA Chest Pulmonary Embolism CTA CT Angiogram of Chest: TECHNIQUE: Contiguous transaxial images of the pulmonary arteries were performed at 2.5 mm intervals. 3-D volume rendering of the pulmonary vessels was performed on a dedicated workstation. COMPARISON: No priors CLINICAL HX: Dyspnea on exertion PULMONARY VESSELS: The main pulmonary trunk, right and left main pulmonary arteries, and the lobar branches are well opacified with IV contrast. No intraluminal filling defects are evident to suggest pulmonary emboli on the axial and 3D volume reformation images. CT CHEST: Lower Neck and Thyroid: Symmetric appearance of thyroid gland without focal abnormality. Lungs and Airways: Minimal basilar scarring and atelectasis. The lungs and pleural spaces are other clear. The trachea and the proximal bronchi are patent. Cardiovascular and Mediastinum: The cardiac size is upper range normal. The aorta demonstrates normal morphology, no evidence for aneurysm or dissection. No significant lymphadenopathy is noted in the mediastinum or hilar regions. Bone and Soft tissue: No significant bony abnormality is noted. Esophagus and Upper Abdomen: The esophagus demonstrates normal morphology. Hepatic cysts are visualized in right lobe of liver with the larger cyst measuring approximately 6 cm in size. Splenic granulomata. IMPRESSION: No evidence for pulmonary emboli. Hepatic cysts. Splenic granulomata SL:13 08/17/2014 - - Read by: Ulices Mendiola MD Dictated Date/time: 08/17/14 11:23 Electronically Signed by: Ulices Mendiola MD 08/17/14 11:31 FINAL REPORT [facility] CARDIAC ENZYMES Troponin-I 0.03 ng/mL 0.00 - 0.40 08/17/2014 [facility] CARDIAC ENZYMES Total CK 54 unit/L 12 - 191 08/17/2014 [facility] CHEM PANEL eGFR 87 mL/min/1.73m2 08/17/2014 1Result Comment: The eGFR is calculated using the CKD-EPI formula. In most young, healthy individuals the eGFR will be >90 mL/min/1.73m2. The eGFR declines with age. An eGFR of 60-89 may be normal in some populations, particularly the elderly, for whom the CKD-EPI formula has not been extensively validated. Use of the eGFR is not recommended in the following populations: Individuals with unstable creatinine concentrations, including patients and those with serious co-morbid conditions. Patients with extremes in muscle mass or diet. The data above are obtained from the National Kidney Disease Education Program (NKDEP) which additionally recommends that when the eGFR is used in patients with extremes of body mass index for purposes of drug dosing, the eGFR should be multiplied by the estimated BMI. [facility] CHEM PANEL AGAP 13.8 meq/L 10.0 - 20.0 08/17/2014 [facility] CHEM PANEL Calcium Lvl 8.5 mg/dL 8.5 - 10.5 08/17/2014 [facility] CHEM PANEL CO2 24 meq/L 24 - 32 08/17/2014 [facility] CHEM PANEL Chloride Lvl 104 meq/L 95 - 109 08/17/2014 [facility] CHEM PANEL Potassium Lvl 3.8 meq/L 3.5 - 5.1 08/17/2014 [facility] CHEM PANEL Glucose Lvl 110 mg/dL 70 - 99 08/17/2014 2Interpretive Data: Adult reference range values reflect the clinical guidelines of the [employer]. [facility] CHEM PANEL Creatinine Lvl 0.7 mg/dL 0.5 - 1.4 08/17/2014 [facility] CHEM PANEL BUN 12 mg/dL 7 - 22 08/17/2014 [facility] CHEM PANEL Sodium Lvl 138 meq/L 135 - 145 08/17/2014 [facility] CARDIAC ENZYMES Troponin-I 0.03 ng/mL 0.00 - 0.40 08/17/2014 [facility] CARDIAC ENZYMES Total CK 52 unit/L 12 - 191 08/17/2014 [facility] URINE AND STOOL UA Ketones Negative mg/dL Negative mg/dL 05/05/2014 [facility] URINE AND STOOL UA Glucose Negative mg/dL Negative mg/dL 05/05/2014 [facility] URINE AND STOOL UA Bili Negative *NA* (05/05/14 8:21 AM) Negative 05/05/2014 [facility] URINE AND STOOL UA Urobilinogen <=1.0 mg/dL 0.1 - 1.0 05/05/2014 [facility] URINE AND STOOL UA Color Ltyellow 05/05/2014 [facility] URINE AND STOOL UA WBC 7 /HPF 0 - 5 05/05/2014 [facility] URINE AND STOOL UA RBC 4 /HPF 0 - 2 05/05/2014 [facility] URINE AND STOOL UA Mucus Few /LPF None Seen /LPF 05/05/2014 [facility] URINE AND STOOL UA Sq Epi Occasional /LPF Few /LPF 05/05/2014 [facility] URINE AND STOOL UA Nitrite Negative (05/05/14 8:21 AM) Negative 05/05/2014 [facility] URINE AND STOOL UA Blood Negative (05/05/14 8:21 AM) Negative 05/05/2014 [facility] URINE AND STOOL UA Leuk Est Moderate *ABN* (05/05/14 8:21 AM) Negative 05/05/2014 [facility] URINE AND STOOL UA Spec Grav 1.010 <=1.030 05/05/2014 [facility] URINE AND STOOL UA Turbidity Clear (05/05/14 8:21 AM) Clear 05/05/2014 [facility] URINE AND STOOL UA pH 7.0 5.0 - 8.0 05/05/2014 [facility] URINE AND STOOL UA Protein Negative mg/dL Negative mg/dL 05/05/2014 [facility] CARDIAC ENZYMES CK MB 1.6 ng/mL 0.5 - 3.6 05/05/2014 [facility] CARDIAC ENZYMES Troponin-I 0.02 ng/mL 0.00 - 0.40 05/05/2014 [facility] CHEM PANEL Magnesium Lvl 2.2 mg/dL 1.8 - 2.4 05/05/2014 [facility] CHEM PANEL Total Protein 7.4 g/dL 6.4 - 8.4 05/05/2014 [facility] CHEM PANEL ALT 18 unit/L 0 - 65 05/05/2014 [facility] CHEM PANEL Bili Total 0.4 mg/dL 0.2 - 1.3 05/05/2014 [facility] CHEM PANEL AST 13 unit/L 0 - 37 05/05/2014 [facility] CHEM PANEL Alk Phos 88 unit/L 39 - 136 05/05/2014 [facility] [facility] PANEL eGFR 92 mL/min/1.73m2 05/05/2014 1Result Comment: The eGFR is calculated using the CKD-EPI formula. In most young, healthy individuals the eGFR will be >90 mL/min/1.73m2. The eGFR declines with age. An eGFR of 60-89 may be normal in some populations, particularly the elderly, for whom the CKD-EPI formula has not been extensively validated. Use of the eGFR is not recommended in the following populations: Individuals with unstable creatinine concentrations, including patients and those with serious co-morbid conditions. Patients with extremes in muscle mass or diet. The data above are obtained from the National Kidney Disease Education Program (NKDEP) which additionally recommends that when the eGFR is used in patients with extremes of body mass index for purposes of drug dosing, the eGFR should be multiplied by the estimated BMI. [facility] CHEM PANEL Calcium Lvl 8.7 mg/dL 8.5 - 10.5 05/05/2014 [facility] CHEM PANEL Albumin Lvl 3.7 g/dL 3.5 - 5.0 05/05/2014 [facility] CHEM PANEL Sodium Lvl 139 meq/L 135 - 145 05/05/2014 [facility] CHEM PANEL BUN 10 mg/dL 7 - 22 05/05/2014 [facility] CHEM PANEL Glucose Lvl 122 mg/dL 70 - 99 05/05/2014 2Interpretive Data: Adult reference range values reflect the clinical guidelines of the [employer]. [facility] CHEM PANEL Potassium Lvl 3.6 meq/L 3.5 - 5.1 05/05/2014 [facility] CHEM PANEL Creatinine Lvl 0.6 mg/dL 0.5 - 1.4 05/05/2014 [facility] CHEM PANEL Chloride Lvl 104 meq/L 95 - 109 05/05/2014 [facility] CHEM PANEL CO2 25 meq/L 24 - 32 05/05/2014 [facility] CHEM PANEL A/G Ratio 1.0 0.7 - 1.6 05/05/2014 [facility] CHEM PANEL Globulin 3.7 g/dL 2.0 - 4.0 05/05/2014 [facility] CHEM PANEL B/C Ratio 17 6 - 25 05/05/2014 [facility] CHEM PANEL AGAP 13.6 meq/L 10.0 - 20.0 05/05/2014 [facility] HEMATOLOGY Monocytes 7.7 % 2.0 - 12.0 05/05/2014 [facility] HEMATOLOGY Eosinophils 2.8 % 0.0 - 4.0 05/05/2014 [facility] HEMATOLOGY Basophils 0.9 % 0.0 - 1.0 05/05/2014 [facility] HEMATOLOGY Segs-Bands # 5.9 K/CMM 1.5 - 8.1 05/05/2014 [facility] HEMATOLOGY Lymphocytes # 1.9 K/CMM 1.0 - 5.5 05/05/2014 [facility] HEMATOLOGY Segs 67.1 % 45.0 - 75.0 05/05/2014 [facility] HEMATOLOGY Lymphocytes 21.5 % 20.0 - 40.0 05/05/2014 [facility] HEMATOLOGY Eosinophils # 0.2 K/CMM 0.0 - 0.5 05/05/2014 [facility] HEMATOLOGY Monocytes # 0.7 K/CMM 0.0 - 0.8 05/05/2014 [facility] HEMATOLOGY Basophils # 0.1 K/CMM 0.0 - 0.2 05/05/2014 [facility] HEMATOLOGY MCHC 33.5 g/dL 32.0 - 36.0 05/05/2014 [facility] HEMATOLOGY RDW 14.1 % 11.5 - 14.5 05/05/2014 [facility] HEMATOLOGY MCH 28.1 pg 27.0 - 31.0 05/05/2014 [facility] HEMATOLOGY MPV 8.4 fL 7.4 - 10.4 05/05/2014 [facility] HEMATOLOGY Platelet 291 K/CMM 133 - 450 05/05/2014 [facility] HEMATOLOGY Hct 38.6 % 36.0 - 48.0 05/05/2014 [facility] HEMATOLOGY Hgb 12.9 g/dL 12.0 - 16.0 05/05/2014 [facility] MCV 84.0 fL 80.0 - 98.0 05/05/2014 [facility] HEMATOLOGY RBC 4.60 M/CMM 4.20 - 5.40 05/05/2014 [facility] HEMATOLOGY WBC 8.8 K/CMM 3.7 - 10.4 05/05/2014 [facility] Chest 1view DX Chest 1view DX Examination: Chest x-ray, single view History: Dizziness Comparison: 10/20/2013 Findings: The lungs are clear and without focal consolidation. The cardiomediastinal silhouette is within normal limits. No pleural effusion or pneumothorax is seen. The osseous structures are without focal abnormality. IMPRESSION: No acute cardiopulmonary disease. SL: 05/05/2014 - - Read by: Keith Simon MD Dictated Date/time: 05/05/14 08:10 Electronically Signed by: Keith Simon MD 05/05/14 08:10 FINAL REPORT [facility] Renal Stone CT Renal Stone CT Examination: Renal stone protocol CT scan. HISTORY: Back pain TECHNIQUE: Multiple axial CT images of the abdomen and pelvis were obtained without the administration of intravenous contrast using the renal stone protocol. Multiplanar reformatted images were performed. COMPARISON: None. DLP: 1 FINDINGS: The lung bases are clear bilaterally. The kidneys are normal in size and morphology without hydronephrosis or perinephric stranding. No renal or ureteral stones are seen. The bladder is well-distended. The patient is status post hysterectomy. Hepatic hypodense cysts in the right hepatic lobe are seen with largest measuring 8.1 cm in greatest axial dimension. Calcified splenic granulomas are seen. The gallbladder, pancreas, and adrenal glands are within the normal limits imposed by the lack of intravenous contrast. Multiple diverticula throughout the sigmoid and descending colon are seen without inflammatory change to suggest acute diverticulitis. The appendix is not clearly visualized. No intraperitoneal free air, free fluid, or pathologic adenopathy is seen. Arterial calcifications are seen. Degenerative changes of the lumbar spine are noted. IMPRESSION: 1. No acute intra-abdominal/pelvic abnormality and no evidence of obstructing renal collecting system stone. 2. Colonic diverticulosis without acute diverticulitis. 3. Right hepatic lobe simple cyst. SL: 16 05/05/2014 - - Read by: Keith Simon MD Dictated Date/time: 05/05/14 07:47 Electronically Signed by: Keith Simon MD 05/05/14 07:49 FINAL REPORT [facility] ELECTROLYTES AGAP 11.5 meq/L 10.0 - 20.0 10/20/2013 [facility] ELECTROLYTES eGFR 92 mL/min/1.73m2 10/20/2013 1Result Comment: The eGFR is calculated using the CKD-EPI formula. In most young, healthy individuals the eGFR will be >90 mL/min/1.73m2. The eGFR declines with age. An eGFR of 60-89 may be normal in some populations, particularly the elderly, for whom the CKD-EPI formula has not been extensively validated. Use of the eGFR is not recommended in the following populations: Individuals with unstable creatinine concentrations, including patients and those with serious co-morbid conditions. Patients with extremes in muscle mass or diet. The data above are obtained from the National Kidney Disease Education Program (NKDEP) which additionally recommends that when the eGFR is used in patients with extremes of body mass index for purposes of drug dosing, the eGFR should be multiplied by the estimated BMI. [facility] ELECTROLYTES Calcium Lvl 8.7 mg/dL 8.5 - 10.5 10/20/2013 [facility] ELECTROLYTES CO2 26 meq/L 24 - 32 10/20/2013 [facility] ELECTROLYTES Chloride Lvl 102 meq/L 95 - 109 10/20/2013 [facility] ELECTROLYTES Creatinine Lvl 0.6 mg/dL 0.5 - 1.4 10/20/2013 [facility] ELECTROLYTES Sodium Lvl 136 meq/L 135 - 145 10/20/2013 [facility] ELECTROLYTES Potassium Lvl 3.5 meq/L 3.5 - 5.1 10/20/2013 [facility] ELECTROLYTES BUN 8 mg/dL 7 - 22 10/20/2013 [facility] ELECTROLYTES Glucose Lvl 114 mg/dL 70 - 99 10/20/2013 2Interpretive Data: Adult reference range values reflect the clinical guidelines of the [place] [employer]. [facility] HEMATOLOGY MPV 7.9 fL 7.4 - 10.4 10/20/2013 [facility] MCHC 33.4 g/dL 32.0 - 36.0 10/20/2013 [facility] Platelet 313 K/CMM 133 - 450 10/20/2013 [facility] RDW 14.1 % 11.5 - 14.5 10/20/2013 [facility] MCH 28.4 pg 27.0 - 31.0 10/20/2013 [facility] MCV 84.8 fL 80.0 - 98.0 10/20/2013 [facility] RBC 4.34 M/CMM 4.20 - 5.40 10/20/2013 [facility] Hct 36.8 % 36.0 - 48.0 10/20/2013 [facility] Hgb 12.3 g/dL 12.0 - 16.0 10/20/2013 [facility] WBC 10.4 K/CMM 3.7 - 10.4 10/20/2013 [facility] Eosinophils 1.8 % 0.0 - 4.0 10/20/2013 [facility] Monocytes 8.8 % 2.0 - 12.0 10/20/2013 [facility] Eosinophils # 0.2 K/CMM 0.0 - 0.5 10/20/2013 [facility] Monocytes # 0.9 K/CMM 0.0 - 0.8 10/20/2013 [facility] Basophils # 0.1 K/CMM 0.0 - 0.2 10/20/2013 [facility] Lymphocytes # 3.2 K/CMM 1.0 - 5.5 10/20/2013 [facility] Basophils 0.6 % 0.0 - 1.0 10/20/2013 [facility] Segs-Bands # 6.0 K/CMM 1.5 - 8.1 10/20/2013 [facility] Lymphocytes 30.9 % 20.0 - 40.0 10/20/2013 [facility] Segs 57.9 % 45.0 - 75.0 10/20/2013 [facility] Chest 2 views Chest 2 views CHEST, PA AND LATERAL. INDICATION: Cough, chest pain. COMPARISON: Chest 09/03/2010 The heart and mediastinum are not remarkable. The lungs are moderately inflated. There is mild interstitial scarring at the bases. No pneumonia, vascular congestion or pleural effusion is seen. Minor thoracic spondylosis is noted. IMPRESSION: No acute abnormality. SL: 12 10/20/2013 - - Read by: Sanford Henderson MD Dictated Date/time: 10/20/13 00:45 Electronically Signed by: Sanford Henderson MD 10/20/13 00:46 FINAL REPORT [facility] Bone Density Scan Bone Density Scan BONE DENSITY: TECHNIQUE: Dual energy x-ray absorptiometry (DEXA) was done over the lumbar spine and left hip. FINDINGS: The total T-score over the lumbar spine is -1.6, consistent with osteopenia. The global T-score over the left hip is -0.4, consistent with normal bone density. The focal T-score over the left femoral neck is -2.1, consistent with osteopenia. IMPRESSION: 1. Osteopenia of the lumbar spine. 2. Normal global bone density of the left hip. 3. Focal osteopenia of the left femoral neck. FOR YOUR INFORMATION: The World Health Organization has established that OSTEOPOROSIS occurs at -2.5 or more standard deviations below peak bone mass (T-score). OSTEOPENIA occurs at -1.0 to -2.5 standard deviations (T-score) below peak bone mass. SL:13 09/21/2012 - - Read by: Bear Milner Dictated Date/time: 09/21/12 16:19 Electronically Signed by: Bear Milner MD 09/21/12 16:20 FINAL REPORT [facility] Digital Mammo Screening [facility] Digital Mammo Screening [facility] DIGITAL MAMMO SCREENING [facility] [place] BILATERAL DIGITAL SCREENING MAMMOGRAM WITH CAD: 09/21/2012 CLINICAL: Routine. Current study was evaluated with a Computer Aided Detection (CAD) system. Comparison is made to exams dated: 08/01/2011 mammogram and 06/25/2007 mammogram - [facility]. There are scattered fibroglandular elements in both breasts that could obscure a lesion on mammography. There are benign vascular calcifications in both breasts. There also is a benign calcification in the left breast. No significant masses, calcifications, or other findings are seen in either breast. There has been no significant interval change. IMPRESSION: BENIGN There is no mammographic evidence of malignancy. A screening mammogram in one year is recommended. SUMMARY: SL: 13. Iain roberts/jake:09/22/2012 07:56:44 Superintendent Menagerie: Silvana Garcia, [facility] letter sent: Normal exam Mammogram BI-RADS: 2 Benign 09/21/2012 - - Read by: Iain Linares Dictated Date/time: 09/22/12 07:56 Electronically Signed by: Iain Linares MD 09/22/12 07:56 FINAL REPORT [facility] Hip bilateral w pelvis and both lat hips Hip bilateral w pelvis and both lat hips Bilateral hip 5-view series, Sep 17, 2012 04:14:35 PM CLINICAL HISTORY: See Clinic Indication ; bilateral hip pain TECHNIQUE: Routine internally and external rotated views of the bilateral hips and an AP view of the pelvis, were obtained. COMPARISON: None FINDINGS: No acute fracture, subluxation, or dislocation is visualized in the bilateral hips or pelvis. Mild bilateral hip osteoarthritis is present. IMPRESSION: No acute abnormality of the bilateral hips or pelvis. SL: 14 09/17/2012 - - Read by: Juni Hadley Date/time: 09/17/12 16:47 Electronically Signed by: Juni Hadley MD 09/17/12 16:47 FINAL REPORT [facility] URINALYSIS UA Color Ltyellow 10/08/2011 [facility] URINALYSIS UA Urobilinogen <=1.0 mg/dL
*NA*
(10/08/2011 13:05:00) <sup> </sup> 0.1 - 1.0 10/08/2011 [facility] URINALYSIS UA Ketones Negative mg/dL *NA* (10/08/2011 13:05:00) Negative 10/08/2011 [facility] URINALYSIS UA RBC 1 /HPF 0 - 2 10/08/2011 Normal [facility] URINALYSIS UA Bacteria Few /HPF *NA* (10/08/2011 13:05:00) None Seen 10/08/2011 [facility] URINALYSIS UA Glucose Negative mg/dL *NA* (10/08/2011 13:05:00) Negative 10/08/2011 [facility] URINALYSIS UA Sq Epi None Seen 10/08/2011 [facility] URINALYSIS UA Leuk Est Negative (10/08/2011 13:05:00) Negative 10/08/2011 Normal [facility] URINALYSIS UA Nitrite Negative (10/08/2011 13:05:00) Negative 10/08/2011 Normal [facility] URINALYSIS UA WBC null 0 - 5 10/08/2011 Normal [facility] URINALYSIS UA Blood Negative (10/08/2011 13:05:00) Negative 10/08/2011 Normal [facility] URINALYSIS UA Bili Negative *NA* (10/08/2011 13:05:00) Negative 10/08/2011 NA [facility] URINALYSIS UA Protein Negative mg/dL (10/08/2011 13:05:00) Negative 10/08/2011 Normal [facility] URINALYSIS UA Spec Grav 1.004 <=1.030 10/08/2011 Normal [facility] URINALYSIS UA Turbidity Clear (10/08/2011 13:05:00) Clear 10/08/2011 Normal [facility] URINALYSIS UA pH 7.0 5.0 - 8.0 10/08/2011 Normal [facility] CHEMISTRY Albumin Lvl 3.8 g/dL 3.5 - 5.0 10/08/2011 Normal [facility] CHEMISTRY Chloride Lvl 102 meq/L 95 - 109 10/08/2011 Normal [facility] CHEMISTRY Potassium Lvl 3.6 meq/L 3.5 - 5.1 10/08/2011 Normal [facility] CHEMISTRY Sodium Lvl 136 meq/L 135 - 145 10/08/2011 Normal [facility] CHEMISTRY Creatinine Lvl 0.5 mg/dL 0.5 - 1.4 10/08/2011 Normal [facility] CHEMISTRY Calcium Lvl 8.5 mg/dL 8.5 - 10.5 10/08/2011 Normal [facility] CHEMISTRY CO2 25 meq/L 24 - 32 10/08/2011 Normal [facility] CHEMISTRY BUN 11 mg/dL 7 - 22 10/08/2011 Normal [facility] CHEMISTRY Glucose Lvl 130 mg/dL 70 - 99 10/08/2011 [place] 1Interpretive Data: Adult reference range values reflect the clinical guidelines of the [place] [employer]. [facility] CHEMISTRY AST 14 unit/L 0 - 37 10/08/2011 Normal [facility] CHEMISTRY Bili Total 0.6 mg/dL 0.2 - 1.3 10/08/2011 Normal [facility] CHEMISTRY ALT 23 unit/L 0 - 65 10/08/2011 Normal [facility] CHEMISTRY Alk Phos 76 unit/L 39 - 136 10/08/2011 Normal [facility] CHEMISTRY Total Protein 7.8 g/dL 6.4 - 8.4 10/08/2011 Normal [facility] CHEMISTRY B/C Ratio 22 6 - 25 10/08/2011 Normal [facility] CHEMISTRY AGAP 12.6 meq/L 10.0 - 20.0 10/08/2011 Normal [facility] CHEMISTRY A/G Ratio 1.0 0.7 - 1.6 10/08/2011 Normal [facility] CHEMISTRY Globulin 4.0 g/dL 2.0 - 4.0 10/08/2011 Normal [facility] HEMATOLOGY MCV 87.1 fL 81.0 - 99.0 10/08/2011 Normal [facility] HEMATOLOGY MCH 28.9 pg 27.0 - 31.0 10/08/2011 Normal [facility] HEMATOLOGY Hct 40.4 % 36.0 - 48.0 10/08/2011 Normal [facility] HEMATOLOGY MCHC 33.2 g/dL 32.0 - 36.0 10/08/2011 Normal [facility] HEMATOLOGY RDW 14.3 % 11.5 - 14.5 10/08/2011 Normal [facility] HEMATOLOGY Platelet 300 K/CMM 133 - 450 10/08/2011 Normal [facility] HEMATOLOGY MPV 8.1 fL 7.4 - 10.4 10/08/2011 Normal [facility] HEMATOLOGY Hgb 13.4 g/dL 12.0 - 16.0 10/08/2011 Normal [facility] HEMATOLOGY WBC 9.0 K/CMM 3.7 - 10.4 10/08/2011 Normal [facility] HEMATOLOGY RBC 4.65 M/CMM 4.20 - 5.40 10/08/2011 Normal [facility] HEMATOLOGY Lymphocytes 7.8 % 20.0 - 40.0 10/08/2011 LOW [facility] HEMATOLOGY Monocytes 1.2 % 2.0 - 12.0 10/08/2011 LOW [facility] HEMATOLOGY Segs 90.5 % 45.0 - 75.0 10/08/2011 [facility] HEMATOLOGY Eosinophils 0.3 % 0.0 - 4.0 10/08/2011 Normal [facility] HEMATOLOGY Basophils 0.2 % 0.0 - 1.0 10/08/2011 Normal [facility] HEMATOLOGY Lymphocytes # 0.7 K/CMM 1.0 - 5.5 10/08/2011 LOW [facility] HEMATOLOGY Eosinophils # 0.0 K/CMM 0.0 - 0.5 10/08/2011 Normal [facility] HEMATOLOGY Monocytes # 0.1 K/CMM 0.0 - 0.8 10/08/2011 Normal [facility] HEMATOLOGY Segs-Bands # 8.2 K/CMM 1.5 - 8.1 10/08/2011 [facility] HEMATOLOGY Basophils # 0.0 K/CMM 0.0 - 0.2 10/08/2011 Normal [facility] Vital Signs Vital Sign Value Date Comments Source Systolic (mm Hg) 131 01/25/2017 [facility] Diastolic (mm Hg) 69 01/25/2017 [facility] Respitory Rate 17 01/25/2017 [facility] Temperature Oral (F) 97.9 F 01/25/2017 [facility] Heart Rate 85 01/25/2017 [facility] Respitory Rate 16 01/25/2017 [facility] Systolic (mm Hg) 145 01/25/2017 [facility] Diastolic (mm Hg) 77 01/25/2017 [facility] Heart Rate 81 01/25/2017 [facility] BMI Calculated 27.52 01/25/2017 [facility] Height 162.56 cm 01/25/2017 [facility] Weight 72.727 01/25/2017 [facility] Heart Rate 69 01/25/2017 [facility] Systolic (mm Hg) 170 01/25/2017 [facility] Diastolic (mm Hg) 80 01/25/2017 [facility] Respitory Rate 20 01/25/2017 [facility] Temperature Oral (F) 98.3 F 01/25/2017 [facility] Systolic (mm Hg) 166 01/18/2017 [facility] Diastolic (mm Hg) 71 01/18/2017 [facility] Respitory Rate 18 01/18/2017 [facility] Systolic (mm Hg) 156 01/18/2017 [facility] Diastolic (mm Hg) 57 01/18/2017 [facility] Respitory Rate 17 01/18/2017 [facility] Temperature Oral (F) 98.1 F 01/18/2017 [facility] Respitory Rate 17 01/17/2017 [facility] Systolic (mm Hg) 179 01/17/2017 [facility] Diastolic (mm Hg) 61 01/17/2017 [facility] Heart Rate 60 01/17/2017 [facility] Weight 70.455 01/17/2017 [facility] Temperature Oral (F) 98.2 F 01/17/2017 [facility] Temperature Oral (F) 98.6 F 12/13/2016 [facility] Respitory Rate 18 12/13/2016 [facility] Heart Rate 80 12/13/2016 [facility] Systolic (mm Hg) 130 12/13/2016 [facility] Diastolic (mm Hg) 67 12/13/2016 [facility] Respitory Rate 19 12/12/2016 [facility] Heart Rate 69 12/12/2016 [facility] Systolic (mm Hg) 119 12/12/2016 [facility] Diastolic (mm Hg) 66 12/12/2016 [facility] Respitory Rate 19 12/12/2016 [facility] Heart Rate 76 12/12/2016 [facility] Systolic (mm Hg) 146 12/12/2016 [facility] Diastolic (mm Hg) 69 12/12/2016 [facility] Weight 72.727 12/12/2016 [facility] Height 162.56 cm 12/12/2016 [facility] BMI Calculated 27.52 12/12/2016 [facility] Temperature Oral (F) 98.5 F 12/12/2016 [facility] Respitory Rate 13 09/02/2016 [facility] Systolic (mm Hg) 142 09/02/2016 [facility] Diastolic (mm Hg) 66 09/02/2016 [facility] Respitory Rate 14 09/02/2016 [facility] Systolic (mm Hg) 192 09/02/2016 [facility] Diastolic (mm Hg) 75 09/02/2016 [facility] Temperature Oral (F) 98 F 09/02/2016 [facility] Systolic (mm Hg) 171 09/02/2016 [facility] Diastolic (mm Hg) 117 09/02/2016 [facility] Respitory Rate 24 09/02/2016 [facility] Heart Rate 67 09/01/2016 [facility] Temperature Oral (F) 97.5 F 09/01/2016 [facility] Weight 61.364 09/01/2016 [facility] BMI Calculated 27.32 09/01/2016 [facility] Height 149.86 cm 09/01/2016 [facility] Heart Rate 65 09/01/2016 [facility] Respitory Rate 19 12/24/2015 [facility] Systolic (mm Hg) 159 12/24/2015 [facility] Diastolic (mm Hg) 83 12/24/2015 [facility] Respitory Rate 16 12/24/2015 [facility] Systolic (mm Hg) 188 12/24/2015 [facility] Diastolic (mm Hg) 55 12/24/2015 [facility] Systolic (mm Hg) 160 12/23/2015 [facility] Diastolic (mm Hg) 88 12/23/2015 [facility] Height 162.56 cm 12/23/2015 [facility] Weight 61.364 12/23/2015 [facility] BMI Calculated 23.22 12/23/2015 [facility] Heart Rate 75 12/23/2015 [facility] Respitory Rate 19 12/23/2015 [facility] Temperature Oral (F) 97.8 F 12/23/2015 [facility] Systolic (mm Hg) 103 12/22/2015 [facility] Diastolic (mm Hg) 49 12/22/2015 [facility] Heart Rate 71 12/22/2015 [facility] Temperature Oral (F) 98.6 F 12/22/2015 [facility] Respitory Rate 20 12/22/2015 [facility] BMI Calculated 23.05 12/22/2015 [facility] Weight 60.909 12/22/2015 [facility] Height 162.56 cm 12/22/2015 [facility] Heart Rate 62 12/22/2015 [facility] Respitory Rate 15 12/22/2015 [facility] Temperature Oral (F) 98.6 F 12/22/2015 [facility] Systolic (mm Hg) 115 12/22/2015 [facility] Diastolic (mm Hg) 65 12/22/2015 [facility] Systolic (mm Hg) 161 11/01/2015 [facility] Diastolic (mm Hg) 80 11/01/2015 [facility] Temperature Oral (F) 99 F 11/01/2015 [facility] Respitory Rate 18 11/01/2015 [facility] Heart Rate 86 11/01/2015 [facility] Respitory Rate 20 11/01/2015 [facility] Temperature Oral (F) 98.8 F 10/31/2015 [facility] Systolic (mm Hg) 155 10/31/2015 [facility] Diastolic (mm Hg) 78 10/31/2015 [facility] Heart Rate 64 10/31/2015 [facility] Respitory Rate 18 10/31/2015 [facility] Temperature Oral (F) 98.9 F 10/31/2015 [facility] Heart Rate 65 10/31/2015 [facility] Systolic (mm Hg) 135 10/31/2015 [facility] Diastolic (mm Hg) 71 10/31/2015 [facility] Weight 67.273 10/28/2015 [facility] BMI Calculated 25.46 10/28/2015 [facility] Height 162.56 cm 10/28/2015 [facility] Systolic (mm Hg) 116 10/25/2015 [facility] Diastolic (mm Hg) 53 10/25/2015 [facility] Temperature Oral (F) 98.5 F 10/25/2015 [facility] Respitory Rate 20 10/25/2015 [facility] Respitory Rate 20 10/25/2015 [facility] Systolic (mm Hg) 162 10/25/2015 [facility] Diastolic (mm Hg) 66 10/25/2015 [facility] Respitory Rate 16 10/25/2015 [facility] Systolic (mm Hg) 169 10/25/2015 [facility] Diastolic (mm Hg) 75 10/25/2015 [facility] Heart Rate 108 10/25/2015 [facility] Temperature Oral (F) 98.3 F 10/25/2015 [facility] Systolic (mm Hg) 173 10/20/2015 [facility] Diastolic (mm Hg) 58 10/20/2015 [facility] Systolic (mm Hg) 121 10/20/2015 [facility] Diastolic (mm Hg) 101 10/20/2015 [facility] Respitory Rate 18 10/20/2015 [facility] Resp[facility] Rate 16 10/20/2015 [facility] Systolic (mm Hg) 191 10/20/2015 [facility] Diastolic (mm Hg) 71 10/20/2015 [facility] Respitory Rate 16 10/20/2015 [facility] Heart Rate 80 10/20/2015 [facility] Temperature Oral (F) 98.7 F 10/20/2015 [facility] Temperature Oral (F) 98 F 10/20/2015 [facility] Heart Rate 65 10/20/2015 [facility] Heart Rate 70 10/20/2015 [facility] Temperature Oral (F) 98.2 F 10/20/2015 [facility] Height 162.56 cm 10/20/2015 [facility] BMI Calculated 23.74 10/20/2015 [facility] Weight 62.727 10/20/2015 [facility] Respitory Rate 16 10/15/2015 [facility] Systolic (mm Hg) 141 10/15/2015 [facility] Diastolic (mm Hg) 73 10/15/2015 [facility] Systolic (mm Hg) 131 10/15/2015 [facility] Diastolic (mm Hg) 77 10/15/2015 [facility] Respitory Rate 20 10/15/2015 [facility] Systolic (mm Hg) 125 10/15/2015 [facility] Diastolic (mm Hg) 64 10/15/2015 [facility] Respitory Rate 24 10/15/2015 [facility] Height 162.56 cm 10/12/2015 [facility] Weight 63.636 10/12/2015 [facility] BMI Calculated 24.08 10/12/2015 [facility] Systolic (mm Hg) 134 10/07/2015 [facility] Diastolic (mm Hg) 78 10/07/2015 [facility] Temperature Oral (F) 97.9 F 10/07/2015 [facility] Heart Rate 68 10/07/2015 [facility] Respitory Rate 18 10/07/2015 [facility] Systolic (mm Hg) 139 10/07/2015 [facility] Diastolic (mm Hg) 76 10/07/2015 [facility] Temperature Oral (F) 97.8 F 10/07/2015 [facility] Heart Rate 70 10/07/2015 [facility] Respitory Rate 18 10/07/2015 [facility] Heart Rate 62 10/07/2015 [facility] Temperature Oral (F) 98 F 10/07/2015 [facility] Systolic (mm Hg) 121 10/07/2015 [facility] Diastolic (mm Hg) 70 10/07/2015 [facility] Respitory Rate 18 10/07/2015 [facility] Weight 63.636 10/06/2015 [facility] BMI Calculated 24.08 10/06/2015 [facility] Height 162.56 cm 10/06/2015 [facility] Weight 63.636 10/05/2015 [facility] Height 162.56 cm 10/05/2015 [facility] BMI Calculated 24.08 10/05/2015 [facility] Systolic (mm Hg) 143 09/29/2015 [facility] Diastolic (mm Hg) 76 09/29/2015 [facility] Respitory Rate 18 09/29/2015 [facility] Heart Rate 91 09/29/2015 [facility] Temperature Oral (F) 98 F 09/29/2015 [facility] Respitory Rate 18 09/29/2015 [facility] Heart Rate 73 09/29/2015 [facility] Rate 19 09/29/2015 [facility] Temperature Oral (F) 98.2 F 09/29/2015 [facility] Systolic (mm Hg) 161 09/29/2015 [facility] Diastolic (mm Hg) 80 09/29/2015 [facility] Weight 68.182 09/28/2015 [facility] Systolic (mm Hg) 188 09/28/2015 [facility] Diastolic (mm Hg) 87 09/28/2015 [facility] Heart Rate 68 09/28/2015 [facility] Temperature Oral (F) 98.2 F 09/28/2015 [facility] Height 157.48 cm 09/28/2015 [facility] BMI Calculated 27.49 09/28/2015 [facility] Systolic (mm Hg) 112 09/26/2015 [facility] Diastolic (mm Hg) 67 09/26/2015 [facility] Respitory Rate 18 09/26/2015 [facility] Heart Rate 82 09/26/2015 [facility] Temperature Oral (F) 98.4 F 09/26/2015 [facility] Resp[facility] Rate 20 09/26/2015 [facility] Systolic (mm Hg) 161 09/26/2015 [facility] Diastolic (mm Hg) 90 09/26/2015 [facility] Heart Rate 78 09/26/2015 [facility] Systolic (mm Hg) 174 09/26/2015 [facility] Diastolic (mm Hg) 95 09/26/2015 [facility] Heart Rate 82 09/26/2015 [facility] Respitory Rate 20 09/26/2015 [facility] Temperature Oral (F) 98.0 F 09/26/2015 [facility] Height 162.56 cm 09/26/2015 [facility] Weight 68.182 09/26/2015 [facility] BMI Calculated 25.8 09/26/2015 [facility] Heart Rate 81 09/14/2015 [facility] Temperature Oral (F) 98.4 F 09/14/2015 [facility] Respitory Rate 17 09/14/2015 [facility] Systolic (mm Hg) 129 09/14/2015 [facility] Diastolic (mm Hg) 81 09/14/2015 [facility] Heart Rate 92 09/14/2015 [facility] Respitory Rate 19 09/14/2015 [facility] Systolic (mm Hg) 147 09/14/2015 [facility] Diastolic (mm Hg) 75 09/14/2015 [facility] Height 162.56 cm 09/14/2015 [facility] BMI Calculated 24.43 09/14/2015 [facility] Weight 64.545 09/14/2015 [facility] Temperature Oral (F) 98.2 F 09/14/2015 [facility] Respitory Rate 18 09/14/2015 [facility] Heart Rate 101 09/14/2015 [facility] Systolic (mm Hg) 157 09/14/2015 [facility] Diastolic (mm Hg) 82 09/14/2015 [facility] Temperature Oral (F) 98.0 F 08/26/2015 [facility] Systolic (mm Hg) 143 08/26/2015 [facility] Diastolic (mm Hg) 66 08/26/2015 [facility] Heart Rate 70 08/26/2015 [facility] Respitory Rate 15 08/26/2015 [facility] Heart Rate 68 08/26/2015 [facility] Respitory Rate 16 08/26/2015 [facility] Systolic (mm Hg) 155 08/26/2015 [facility] Diastolic (mm Hg) 68 08/26/2015 [facility] Systolic (mm Hg) 139 08/25/2015 [facility] Diastolic (mm Hg) 74 08/25/2015 [facility] Weight 65 08/25/2015 [facility] BMI Calculated 24.6 08/25/2015 [facility] Height 162.56 cm 08/25/2015 [facility] Temperature Oral (F) 98.0 F 08/25/2015 [facility] Respitory Rate 16 08/25/2015 [facility] Heart Rate 72 08/25/2015 [facility] Temperature Oral (F) 98 F 08/20/2015 [facility] Systolic (mm Hg) 145 08/20/2015 [facility] Diastolic (mm Hg) 60 08/20/2015 [facility] Respitory Rate 15 08/20/2015 [facility] Systolic (mm Hg) 141 08/20/2015 [facility] Diastolic (mm Hg) 66 08/20/2015 [facility] Respitory Rate 15 08/20/2015 [facility] Resp[facility] Rate 23 08/20/2015 [facility] Systolic (mm Hg) 149 08/20/2015 [facility] Diastolic (mm Hg) 56 08/20/2015 [facility] Heart Rate 66 08/20/2015 [facility] Temperature Oral (F) 98.3 F 08/20/2015 [facility] Respitory Rate 18 06/15/2015 [facility] Temperature Oral (F) 97.1 F 06/15/2015 [facility] Heart Rate 75 06/15/2015 [facility] Systolic (mm Hg) 133 06/15/2015 [facility] Diastolic (mm Hg) 71 06/15/2015 [facility] Heart Rate 76 06/15/2015 [facility] Systolic (mm Hg) 168 06/15/2015 [facility] Diastolic (mm Hg) 74 06/15/2015 [facility] Temperature Oral (F) 97.8 F 06/15/2015 [facility] Respitory Rate 18 06/15/2015 [facility] Systolic (mm Hg) 199 06/15/2015 [facility] Diastolic (mm Hg) 99 06/15/2015 [facility] Heart Rate 77 06/15/2015 [facility] Respitory Rate 18 06/15/2015 [facility] Temperature Oral (F) 97.8 F 06/15/2015 [facility] Height 152.4 cm 06/14/2015 [facility] BMI Calculated 28.38 06/14/2015 [facility] Weight 65.909 06/14/2015 [facility] Temperature Oral (F) 97.9 F 06/06/2015 [facility] Heart Rate 77 06/06/2015 [facility] Respitory Rate 18 06/06/2015 [facility] Systolic (mm Hg) 134 06/06/2015 [facility] Diastolic (mm Hg) 72 06/06/2015 [facility] Temperature Oral (F) 97.7 F 06/06/2015 [facility] Heart Rate 65 06/06/2015 [facility] Respitory Rate 18 06/06/2015 [facility] Systolic (mm Hg) 169 06/06/2015 [facility] Diastolic (mm Hg) 80 06/06/2015 [facility] Heart Rate 63 06/06/2015 [facility] Systolic (mm Hg) 183 06/06/2015 [facility] Diastolic (mm Hg) 93 06/06/2015 [facility] Respitory Rate 18 06/06/2015 [facility] Temperature Oral (F) 97.9 F 06/06/2015 [facility] BMI Calculated 23.74 06/04/2015 [facility] Weight 62.727 06/04/2015 [facility] Height 162.56 cm 06/04/2015 [facility] Temperature Oral (F) 98.1 F 05/28/2015 [facility] Systolic (mm Hg) 115 05/28/2015 [facility] Diastolic (mm Hg) 63 05/28/2015 [facility] Respitory Rate 15 05/28/2015 [facility] Systolic (mm Hg) 115 05/28/2015 [facility] Diastolic (mm Hg) 63 05/28/2015 [facility] Respitory Rate 20 05/28/2015 [facility] Respitory Rate 19 05/28/2015 [facility] Weight 63.636 05/28/2015 [facility] BMI Calculated 24.08 05/28/2015 [facility] Height 162.56 cm 05/28/2015 [facility] Heart Rate 113 05/28/2015 [facility] Temperature Oral (F) 98.2 F 05/28/2015 [facility] Systolic (mm Hg) 138 05/28/2015 [facility] Diastolic (mm Hg) 81 05/28/2015 [facility] Systolic (mm Hg) 145 05/05/2015 [facility] Diastolic (mm Hg) 81 05/05/2015 [facility] Respitory Rate 18 05/05/2015 [facility] Heart Rate 86 05/05/2015 [facility] Temperature Oral (F) 97.8 F 05/05/2015 [facility] Respitory Rate 18 05/05/2015 [facility] Systolic (mm Hg) 154 05/05/2015 [facility] Diastolic (mm Hg) 72 05/05/2015 [facility] Heart Rate 74 05/05/2015 [facility] Temperature Oral (F) 97.6 F 05/05/2015 [facility] Heart Rate 70 05/05/2015 [facility] Temperature Oral (F) 97.8 F 05/05/2015 [facility] Systolic (mm Hg) 162 05/05/2015 [facility] Diastolic (mm Hg) 84 05/05/2015 [facility] Respitory Rate 18 05/05/2015 [facility] Weight 63.636 05/05/2015 [facility] BMI Calculated 24.08 05/05/2015 [facility] Height 162.56 cm 05/05/2015 [facility] Height 162.56 cm 05/04/2015 [facility] BMI Calculated 24.08 05/04/2015 [facility] Weight 63.636 05/04/2015 [facility] Respitory Rate 23 03/05/2015 [facility] Systolic (mm Hg) 147 03/05/2015 [facility] Diastolic (mm Hg) 64 03/05/2015 [facility] Temperature Oral (F) 98.0 F 03/05/2015 [facility] Respitory Rate 15 03/05/2015 [facility] Systolic (mm Hg) 134 03/05/2015 [facility] Diastolic (mm Hg) 64 03/05/2015 [facility] Systolic (mm Hg) 163 03/05/2015 [facility] Diastolic (mm Hg) 87 03/05/2015 [facility] Respitory Rate 17 03/05/2015 [facility] Temperature Oral (F) 97.8 F 03/04/2015 [facility] Heart Rate 98 03/04/2015 [facility] BMI Calculated 27.5 03/04/2015 [facility] Height 167.64 cm 03/04/2015 [facility] Weight 77.273 03/04/2015 [facility] Temperature Oral (F) 97.8 F 02/06/2015 [facility] Systolic (mm Hg) 123 02/06/2015 [facility] Diastolic (mm Hg) 74 02/06/2015 [facility] Respitory Rate 16 02/06/2015 [facility] Heart Rate 86 02/06/2015 [facility] Weight 70.455 02/06/2015 [facility] BMI Calculated 29.35 02/06/2015 [facility] Height 154.94 cm 02/06/2015 [facility] Temperature Oral (F) 97.8 F 02/06/2015 [facility] Respitory Rate 20 02/06/2015 [facility] Heart Rate 100 02/06/2015 [facility] Systolic (mm Hg) 122 02/06/2015 [facility] Diastolic (mm Hg) 77 02/06/2015 [facility] Systolic (mm Hg) 171 11/22/2014 [facility] Diastolic (mm Hg) 69 11/22/2014 [facility] Respitory Rate 18 11/22/2014 [facility] Heart Rate 51 11/22/2014 [facility] Temperature Oral (F) 98.2 F 11/22/2014 [facility] Systolic (mm Hg) 160 11/22/2014 [facility] Diastolic (mm Hg) 80 11/22/2014 [facility] Respitory Rate 18 11/22/2014 [facility] Temperature Oral (F) 98.0 F 11/22/2014 [facility] Heart Rate 56 11/22/2014 [facility] Heart Rate 48 11/22/2014 [facility] Respitory Rate 18 11/22/2014 [facility] Systolic (mm Hg) 173 11/22/2014 [facility] Diastolic (mm Hg) 73 11/22/2014 [facility] Temperature Oral (F) 98.1 F 11/22/2014 [facility] Height 157.48 cm 11/22/2014 [facility] BMI Calculated 28.59 11/22/2014 [facility] Weight 70.909 11/22/2014 [facility] Respitory Rate 16 11/09/2014 [facility] Systolic (mm Hg) 186 11/09/2014 [facility] Diastolic (mm Hg) 84 11/09/2014 [facility] Temperature Oral (F) 98.9 F 11/09/2014 [facility] Heart Rate 62 11/09/2014 [facility] Weight 72.727 11/09/2014 [facility] BMI Calculated 27.52 11/09/2014 [facility] Height 162.56 cm 11/09/2014 [facility] Temperature Oral (F) 99 F 11/09/2014 [facility] Heart Rate 64 11/09/2014 [facility] Systolic (mm Hg) 201 11/09/2014 [facility] Diastolic (mm Hg) 86 11/09/2014 [facility] Respitory Rate 18 11/09/2014 [facility] Systolic (mm Hg) 137 10/19/2014 [facility] Diastolic (mm Hg) 66 10/19/2014 [facility] Temperature Oral (F) 98.4 F 10/19/2014 [facility] Respitory Rate 18 10/19/2014 [facility] Systolic (mm Hg) 166 10/19/2014 [facility] Diastolic (mm Hg) 72 10/19/2014 [facility] Systolic (mm Hg) 183 10/19/2014 [facility] Diastolic (mm Hg) 88 10/19/2014 [facility] Weight 72.727 10/19/2014 [facility] Height 154.94 cm 10/19/2014 [facility] BMI Calculated 30.29 10/19/2014 [facility] Respitory Rate 18 10/19/2014 [facility] Heart Rate 66 10/19/2014 [facility] Temperature Oral (F) 98.7 F 10/19/2014 [facility] Heart Rate 70 09/02/2014 [facility] Temperature Oral (F) 98.3 F 09/02/2014 [facility] Systolic (mm Hg) 165 09/02/2014 [facility] Diastolic (mm Hg) 85 09/02/2014 [facility] Respitory Rate 16 09/02/2014 [facility] Temperature Oral (F) 98.2 F 09/02/2014 [facility] Heart Rate 74 09/02/2014 [facility] Systolic (mm Hg) 160 09/02/2014 [facility] Diastolic (mm Hg) 81 09/02/2014 [facility] Respitory Rate 16 09/02/2014 [facility] Temperature Oral (F) 98.1 F 09/02/2014 [facility] Heart Rate 81 09/02/2014 [facility] Respitory Rate 16 09/02/2014 [facility] Systolic (mm Hg) 157 09/02/2014 [facility] Diastolic (mm Hg) 85 09/02/2014 [facility] Height 160.02 cm 09/02/2014 [facility] Weight 70.455 09/02/2014 [facility] BMI Calculated 27.51 09/02/2014 [facility] Temperature Oral (F) 97.7 F 08/17/2014 [facility] Respitory Rate 16 08/17/2014 [facility] Systolic (mm Hg) 175 08/17/2014 [facility] Diastolic (mm Hg) 85 08/17/2014 [facility] Heart Rate 72 08/17/2014 [facility] Temperature Oral (F) 98.4 F 08/17/2014 [facility] Heart Rate 76 08/17/2014 [facility] Systolic (mm Hg) 186 08/17/2014 [facility] Diastolic (mm Hg) 96 08/17/2014 [facility] Respitory Rate 16 08/17/2014 [facility] Respitory Rate 12 08/17/2014 [facility] Temperature Oral (F) 98.6 F 08/17/2014 [facility] Heart Rate 73 08/17/2014 [facility] Systolic (mm Hg) 138 08/17/2014 [facility] Diastolic (mm Hg) 70 08/17/2014 [facility] BMI Calculated 26.97 08/17/2014 [facility] Height 162.56 cm 08/17/2014 [facility] Weight 71.273 08/17/2014 [facility] Systolic (mm Hg) 161 08/14/2014 [facility] Diastolic (mm Hg) 89 08/14/2014 [facility] Respitory Rate 18 08/14/2014 [facility] Temperature Oral (F) 98.6 F 08/14/2014 [facility] Heart Rate 102 08/14/2014 [facility] Respitory Rate 20 08/14/2014 [facility] Heart Rate 74 08/14/2014 [facility] Temperature Oral (F) 98.5 F 08/14/2014 [facility] Systolic (mm Hg) 153 08/14/2014 [facility] Diastolic (mm Hg) 66 08/14/2014 [facility] Weight 73.636 08/14/2014 [facility] Heart Rate 90 08/14/2014 [facility] Respitory Rate 20 08/14/2014 [facility] Temperature Oral (F) 98.6 F 08/14/2014 [facility] Systolic (mm Hg) 137 08/14/2014 [facility] Diastolic (mm Hg) 86 08/14/2014 [facility] Height 165.1 cm 08/14/2014 [facility] BMI Calculated 27.01 08/14/2014 [facility] Temperature Oral (F) 98.3 F 05/05/2014 [facility] Respitory Rate 13 05/05/2014 [facility] Systolic (mm Hg) 141 05/05/2014 [facility] Diastolic (mm Hg) 60 05/05/2014 [facility] Systolic (mm Hg) 167 05/05/2014 [facility] Diastolic (mm Hg) 71 05/05/2014 [facility] Respitory Rate 17 05/05/2014 [facility] Systolic (mm Hg) 176 05/05/2014 [facility] Diastolic (mm Hg) 71 05/05/2014 [facility] Temperature Oral (F) 98.1 F 05/05/2014 [facility] Heart Rate 58 05/05/2014 [facility] Respitory Rate 18 05/05/2014 [facility] Weight 72.727 05/05/2014 [facility] BMI Calculated 27.52 05/05/2014 [facility] Height 162.56 cm 05/05/2014 [facility] Heart Rate 62 05/05/2014 [facility] Temperature Oral (F) 98.4 F 05/05/2014 [facility] Heart Rate 74 11/16/2013 [facility] Temperature Oral (F) 98.1 F 11/16/2013 [facility] Diastolic (mm Hg) 79 11/16/2013 [facility] Systolic (mm Hg) 145 11/16/2013 [facility] Respitory Rate 16 11/16/2013 [facility] Height 162.56 cm 11/16/2013 [facility] BMI Calculated 29.59 11/16/2013 [facility] Weight 78.182 11/16/2013 [facility] Temperature Oral (F) 98.3 F 11/16/2013 [facility] Systolic (mm Hg) 152 11/16/2013 [facility] Respitory Rate 16 11/16/2013 [facility] Heart Rate 80 11/16/2013 [facility] Diastolic (mm Hg) 83 11/16/2013 [facility] Respitory Rate 16 10/20/2013 [facility] Temperature Oral (F) 98.9 F 10/20/2013 [facility] Heart Rate 65 10/20/2013 [facility] Diastolic (mm Hg) 68 10/20/2013 [facility] Systolic (mm Hg) 156 10/20/2013 [facility] Diastolic (mm Hg) 76 10/20/2013 [facility] Systolic (mm Hg) 157 10/20/2013 [facility] Heart Rate 67 10/20/2013 [facility] Respitory Rate 18 10/20/2013 [facility] Weight 71.591 10/20/2013 [facility] Heart Rate 67 10/20/2013 [facility] Respitory Rate 20 10/20/2013 [facility] Systolic (mm Hg) 162 10/20/2013 [facility] Diastolic (mm Hg) 89 10/20/2013 [facility] Temperature Oral (F) 98.9 F 10/20/2013 [facility] Weight 72.727 02/07/2012 [facility] Height 162.56 cm 02/07/2012 [facility] Weight 81.818 10/08/2011 [facility] Height 162.56 cm 10/08/2011 [facility] Encounters Location Location Details Encounter Type Encounter Number Reason For Visit Attending Provider ADM Date DC Date Status Source [facility] Emergency [id number] SAÚL PERALTA 10/08/2011 10/08/2011 Active [facility] Emergency [id number] JASEARI PISANO 02/06/2012 02/06/2012 Active [facility] Outpatient [id number] XRAY MIRANDA BERNAL 09/17/2012 Active [facility] Outpatient [id number] MENAPAUSAL MIRANDA BERNAL 09/21/2012 Active [facility] [id number] René Arndt 10/20/2013 10/20/2013 [facility] [id number] Russ Alejo 11/16/2013 11/16/2013 [facility] [id number] Bertha Houston 05/05/2014 05/05/2014 [facility] [id number] Saúl William 08/14/2014 08/14/2014 [facility] OBS Observation Patient [id number] Andrea Braunkia 08/17/2014 08/17/2014 [facility] [id number] Eduardo Doyle 09/02/2014 09/02/2014 [facility] [id number] Nadim Judaism 10/19/2014 10/19/2014 [facility] [id number] Eduardo Zalacain 11/09/2014 11/09/2014 [facility] [id number] Audrey [place] 11/22/2014 11/22/2014 [facility] [id number] Eduardo Zalacain 02/06/2015 02/06/2015 [facility] [id number] Oracio Perry 03/04/2015 03/05/2015 [facility] OBS Observation Patient [id number] Lynsey Mijares 05/04/2015 05/05/2015 [facility] [id number] Yvonne Padilla 05/28/2015 05/28/2015 [facility] OBS Observation Patient [id number] Myesha Valdez 06/04/2015 06/06/2015 [facility] [id number] Audrey [place] 06/14/2015 06/15/2015 [facility] [id number] Nadim Judaism 08/20/2015 08/20/2015 [facility] [id number] Oracio Perry 08/25/2015 08/26/2015 [facility] [id number] René Arndt 09/14/2015 09/15/2015 [facility] Emergency [id number] Cat Pelayo 09/26/2015 09/26/2015 [facility] Emergency [id number] Gloriahome Tello 09/28/2015 09/29/2015 [facility] Observation [id number] Adama Melendrez 10/05/2015 10/07/2015 [facility] Bedded Outpatient [id number] Hernando Singh 10/15/2015 10/15/2015 [facility] Observation [id number] Yosvany Hunt 10/20/2015 10/20/2015 [facility] Emergency [id number] Lang Judaism 10/25/2015 10/25/2015 [facility] Observation [id number] Adama Melendrez 10/28/2015 11/01/2015 [facility] Emergency [id number] Audrey [place] 12/22/2015 12/22/2015 [facility] Emergency [id number] Alejandro Landry 12/23/2015 12/24/2015 [facility] Emergency [id number] Audrey Florida 09/01/2016 09/02/2016 [facility] Emergency [id number] Tyrell Pelayo 12/12/2016 12/13/2016 [facility] Emergency [id number] Megha Tan 01/17/2017 01/18/2017 [facility] Emergency [id number] René Hair 01/25/2017 01/25/2017 [facility] Procedures Procedure Code Date Perfomer Comments Source Angioscopy of vein [id number] [facility] Cataract surgery [id number] [facility] section [id number] [facility] Excision of vein [id number] [facility] Hysterectomy [id number] [facility] Tubal ligation [id number] [facility]
--- OUTSIDE RECORDS SUMMARY | 2018-04-01 09:22 | XMS REPORT | CCD ---
Author Author Auto Generated Organization [facility] Address Unknown Phone Unavailable Care Team Providers Care Behavioral Health Therapist Name Role Phone Gabriel Priest CP Allergies, Adverse Reactions, Alerts Substance Reaction Status NKDA Active Problem List Condition Effective Dates Status Arthritis Resolved Hypertension Resolved Medications Medication Instructions Start Date End Date Status Esgic 2 tab, Route: PO, Drug Form: TAB, 02/06/2012 02/06/2012 Completed Dosing Weight 72.727, kg, ONCE, Start date: 02/06/12 20:14:00, Stop date: 02/06/12 20:14:00 diphenhydrAMINE 12.5 mg, 0.25 mL, Route: IVP, Drug 02/06/2012 02/06/2012 Completed form: INJ, ONCE, Dosing Weight 72.727, kg, Priority: STAT, Start date: 02/06/12 20:14:00, Stop date: 02/06/12 20:14:00 metoclopramide 10 mg, 2 mL, Route: IVP, Drug form: 02/06/2012 02/06/2012 Completed INJ, ONCE, Dosing Weight 72.727, kg, Priority: STAT, Start date: 02/06/12 20:14:00, Stop date: 02/06/12 20:14:00 Sodium Chloride 0.9% 500 mL, 500 ml/hr, Route: IV, Drug 02/06/2012 02/06/2012 Completed (Bolus) IV Form: INJ, Dosing Weight 72.727, kg, ONCE, Bolus Dose - infuse over 1 hr, STAT, Start date: 02/06/12 20:13:00, Stop date: 02/06/12 20:13:00 Phenergan 25 mg 1 supp, AK, Q6H, PRN, 9 supp, 02/06/2012 Ordered rectal suppository Nausea & Vomiting, Substitution Allowed Phenergan 25 mg oral 25 mg, 1 tab, PO, Q4H, PRN, 15 tab, 02/06/2012 Ordered tablet Nausea, Substitution Allowed Esgic 325 mg-50 2 tab, PO, Q6H, PRN, 30 tab, Pain, 02/06/2012 Ordered mg-40 mg oral tablet Substitution Allowed, Maintenance, TAB Vital Signs Most recent to oldest [Reference Range]: 1 Height 162.56 cm (02/06/2012 19:34:00) Weight 72.727 kg (02/06/2012 19:34:00)
--- OUTSIDE RECORDS SUMMARY | 2018-04-01 09:22 | XMS REPORT | Summary of Care ---
Author Author [facility] Organization [facility] Address Unknown Phone Unavailable Encounter GABRIEL Valencia(RJ) [id number] Date(s): 09/01/14 - 09/02/14 [facility] [address] [place] [address]- Discharge Diagnosis: Gastritis Discharge Diagnosis: Migraine Discharge Disposition: Home Attending Physician: Eduardo Doyle MD Vital Signs 1 2 3 Most recent to oldest [Reference Range]: 160.02 cm (09/01/14 10:55 PM) Height 1 2 3 Most recent to oldest [Reference Range]: 98.3 DegF (09/02/14 6:31 AM) 98.2 DegF (09/02/14 5:08 AM) 98.1 DegF (09/02/14 3:03 AM) Temperature Oral [96.4-99.1 DegF] 1 2 3 Most recent to oldest [Reference Range]: 165/85 mmHg *HI* (09/02/14 6:31 AM) 160/81 mmHg *HI* (09/02/14 5:08 AM) Blood Pressure [90-140/60-90 mmHg] 157 mmHg *HI* (09/02/14 3:03 AM) Systolic Blood Pressure [90-140 mmHg] 1 2 3 Most recent to oldest [Reference Range]: 85 mmHg (09/02/14 3:03 AM) Diastolic Blood Pressure [60-90 mmHg] 1 2 3 Most recent to oldest [Reference Range]: 16 BRMIN (09/02/14 6:31 AM) 16 BRMIN (09/02/14 5:08 AM) 16 BRMIN (09/02/14 3:03 AM) Respiratory Rate [14-20 BRMIN] 1 2 3 Most recent to oldest [Reference Range]: 70 bpm (09/02/14 6:31 AM) 74 bpm (09/02/14 5:08 AM) 81 bpm (09/02/14 3:03 AM) Peripheral Pulse Rate [60-100 bpm] 1 2 3 Most recent to oldest [Reference Range]: 70.455 kg (09/01/14 10:55 PM) Weight 1 2 3 Most recent to oldest [Reference Range]: 27.51 m2 (09/01/14 10:55 PM) Body Mass Index Problem List Condition Effective Dates Status Health Status Informant Acute bronchitis1, 2 08/08/13 Resolved Allergic rhinitis3 05/02/13 Active Arthritis(Confirmed) Active Arthritis(Confirmed) Resolved Asthma4 01/28/13 Active Backache(Confirmed) Active Benign essential 07/09/12 Active hypertension5 Child examination Resolved finding6 Chronic back pain7 02/16/59 Active Chronic headache 05/02/13 Active disorder8 Evaluation finding9 Resolved Gastroesophageal 08/08/13 Active reflux Gynecologic Resolved gstepookkqc97 HTN Active (hypertension)(Confi rmed) Hyperlipidemia(Confi Resolved rmed) Hyperlipidemia(Confi Active rmed) Hypertension(Confirm Resolved ed) Impaired fasting 01/16/13 Resolved fbfsulbni14 Impaired glucose 01/16/13 Active flxombamd35 Influenza 10/27/13 Resolved rmyocoyemeb12, 15 Pepcnoaj70 01/28/13 Active Major depressive 03/24/14 Active bytqfzky80 Migraine(Confirmed) Active Migraine(Confirmed) Resolved Mixed 12/28/12 Active lvyblxojsojdin25 Rwanuwnrxpwfoc43 Active Rflersmovh73 Active Physical examination Resolved Screening Resolved uxglgckaoat35 Sleep apnea23 10/27/13 Active Spinal Active stenosis(Confirmed) Spinal Resolved stenosis(Confirmed) Ghwuusf05 05/02/13 Active 1Data migrated from [employer] on 09/02/14. 2Data migrated from [employer] on 09/01/14. 3Data migrated from [employer] on 07/15/14. 4Data migrated from [employer] on 07/15/14. 5Data migrated from [employer] on 07/15/14. 6Data migrated from [employer] on 09/01/14. 7Data migrated from [employer] on 07/15/14. 8Data migrated from [employer] on 07/15/14. 9Data migrated from [employer] on 09/01/14. 10Data migrated from [employer] on 07/15/14. 11Data migrated from [employer] on 09/01/14. 12Data migrated from [employer] on 08/23/14. 13Data migrated from [employer] on 08/23/14. 14Data migrated from [employer] on 09/02/14. 15Data migrated from [employer] on 09/01/14. 16Data migrated from [employer] on 07/15/14. 17Data migrated from [employer] on 08/23/14. 18Data migrated from [employer] on 07/15/14. 19Data migrated from [employer] on 07/15/14. 20Data migrated from [employer] on 07/15/14. 21Data migrated from [employer] on 09/01/14. 22Data migrated from [employer] on 09/01/14. 23Data migrated from [employer] on 07/15/14. 24Data migrated from [employer] on 07/15/14. Allergies, Adverse Reactions, Alerts Substance Reaction Severity Status NKDA Active Medications Benadryl 25 mg oral tablet 25 mg=1 tab, PO, Q8H, # 24 tab, 0 Refill(s) Start Date: 09/02/14 Stop Date: 09/02/14 Status: Completed Dilaudid 0.5 mg, Route: IVP, ONCE, Dosing Weight 70.455, kg, Priority: STAT, Start date: 09/02/14 2:50:00, Stop date: 09/02/14 2:50:00 Start Date: 09/02/14 Stop Date: 09/02/14 Status: Completed Fioricet 300 mg-50 mg-40 mg oral capsule 1 cap, PO, Q4H, PRN PRN Headache, Do not exceed 6 capsules in 24 hours, X 10 day , # 30 cap, 0 Refill(s) Special Instructions: Do not exceed 6 capsules in 24 hours Start Date: 09/02/14 Stop Date: 09/12/14 Status: Ordered GI cocktail 30 mL, Route: PO, Dosing Weight 70.455, kg, ONCE, STAT, Start date: 09/02/14 2:4 9:00, Stop date: 09/02/14 2:49:00 Start Date: 09/02/14 Stop Date: 09/02/14 Status: Completed NS (Bolus) IV 500 mL, 500 ml/hr, Infuse Over: 1 hr, Route: IV, ONCE, Priority: STAT, Dosing We ight 70.455 kg, Start date: 09/02/14 2:49:00, Duration: 1 doses or times, Stop d ate: 09/02/14 2:49:00 Start Date: 09/02/14 Stop Date: 09/02/14 Status: Completed Pepcid 20 mg, Route: IV, ONCE, Dosing Weight 70.455, kg, Start date: 09/02/14 2:49:00, Stop date: 09/02/14 2:49:00 Start Date: 09/02/14 Stop Date: 09/02/14 Status: Completed Pepcid 20 mg oral tablet 20 mg=1 tab, PO, BID, # 20 tab, 0 Refill(s) Start Date: 09/02/14 Status: Ordered Phenergan 12.5 mg, Route: IVPB, ONCE, Dosing Weight 70.455, kg, Priority: STAT, Start date : 09/02/14 2:49:00, Stop date: 09/02/14 2:49:00 Start Date: 09/02/14 Stop Date: 09/02/14 Status: Completed Phenergan 12.5 mg oral tablet 12.5 mg=1 tab, PO, Q8H, PRN Nausea & Vomiting, X 7 day, # 21 tab, 0 Refill(s) Start Date: 09/02/14 Stop Date: 09/09/14 Status: Ordered Results ELECTROLYTES Most recent to 1 oldest [Reference Range]: Sodium Lvl [135-145 139 mEq/L mEq/L] (09/02/14 3:08 AM) Potassium Lvl 3.4 mEq/L [3.5-5.1 mEq/L] *LOW* (09/02/14 3:08 AM) Chloride Lvl [95-109 103 mEq/L mEq/L] (09/02/14 3:08 AM) CO2 [24-32 mEq/L] 28 mEq/L (09/02/14 3:08 AM) AGAP [10.0-20.0 11.4 mEq/L mEq/L] (09/02/14 3:08 AM) CHEM PANEL Most recent to 1 oldest [Reference Range]: Creatinine Lvl 0.7 mg/dL [0.5-1.4 mg/dL] (09/02/14 3:08 AM) eGFR 87 mL/min/1.73m2 1 *NA* (09/02/14 3:08 AM) BUN [7-22 mg/dL] 9 mg/dL (09/02/14 3:08 AM) B/C Ratio [6-25] 13 (09/02/14 3:08 AM) Glucose Lvl [70-99 98 mg/dL mg/dL] (09/02/14 3:08 AM) Total Protein 7.2 g/dL [6.4-8.4 g/dL] (09/02/14 3:08 AM) Albumin Lvl [3.5-5.0 3.5 g/dL g/dL] (09/02/14 3:08 AM) Globulin [2.0-4.0 3.7 g/dL g/dL] (09/02/14 3:08 AM) A/G Ratio [0.7-1.6] 0.9 (09/02/14 3:08 AM) Calcium Lvl 8.8 mg/dL [8.5-10.5 mg/dL] (09/02/14 3:08 AM) ALT [0-65 unit/L] 22 unit/L (09/02/14 3:08 AM) AST [0-37 unit/L] 13 unit/L (09/02/14 3:08 AM) Alk Phos [39-136 90 unit/L unit/L] (09/02/14 3:08 AM) Bili Total [0.2-1.3 0.2 mg/dL mg/dL] (09/02/14 3:08 AM) Lipase Lvl [73-393 81 unit/L unit/L] (09/02/14 3:08 AM) 1Result Comment: The eGFR is calculated using [...] from the National Kidney Disease Education Program ( NKDEP) which additionally recommends that when the eGFR is used in patients with extremes of body mass index for purposes of drug dosing, the eGFR should be mul tiplied by the estimated BMI. CARDIAC ENZYMES Most recent to 1 oldest [Reference Range]: Troponin-I 0.05 ng/mL [0.00-0.40 ng/mL] (09/02/14 3:08 AM) URINE AND STOOL Most recent to 1 oldest [Reference Range]: UA Turbidity [Clear] Clear (09/02/14 3:08 AM) UA Color [Yellow] Yellow *NA* (09/02/14 3:08 AM) UA pH [5.0-8.0] 7.0 (09/02/14 3:08 AM) UA Spec Grav 1.010 [<=1.030] (09/02/14 3:08 AM) UA Glucose [Negative Negative mg/dL mg/dL] *NA* (09/02/14 3:08 AM) UA Blood [Negative] Negative (09/02/14 3:08 AM) UA Ketones [Negative Negative mg/dL mg/dL] *NA* (09/02/14 3:08 AM) UA Protein [Negative Negative mg/dL mg/dL] (09/02/14 3:08 AM) UA Urobilinogen <=1.0 mg/dL [0.1-1.0 mg/dL] *NA* (09/02/14 3:08 AM) UA Bili [Negative] Negative *NA* (09/02/14 3:08 AM) UA Leuk Est Small [Negative] *ABN* (09/02/14 3:08 AM) UA Nitrite Negative [Negative] (09/02/14 3:08 AM) UA WBC [0-5 /HPF] 4 /HPF (09/02/14 3:08 AM) UA RBC [0-2 /HPF] 3 /HPF *HI* (09/02/14 3:08 AM) UA Sq Epi [Few /LPF] Occasional /LPF *NA* (09/02/14 3:08 AM) HEMATOLOGY Most recent to 1 oldest [Reference Range]: WBC [3.7-10.4 K/CMM] 8.8 K/CMM (09/02/14 3:08 AM) RBC [4.20-5.40 4.51 M/CMM M/CMM] (09/02/14 3:08 AM) Hgb [12.0-16.0 g/dL] 13.3 g/dL (09/02/14 3:08 AM) Hct [36.0-48.0 %] 39.3 % (09/02/14 3:08 AM) MCV [80.0-98.0 fL] 87.3 fL (09/02/14 3:08 AM) MCH [27.0-31.0 pg] 29.4 pg (09/02/14 3:08 AM) MCHC [32.0-36.0 33.7 g/dL g/dL] (09/02/14 3:08 AM) RDW [11.5-14.5 %] 14.1 % (09/02/14 3:08 AM) Platelet [133-450 278 K/CMM K/CMM] (09/02/14 3:08 AM) MPV [7.4-10.4 fL] 7.6 fL (09/02/14 3:08 AM) Segs [45.0-75.0 %] 55.9 % (09/02/14 3:08 AM) Lymphocytes 32.1 % [20.0-40.0 %] (09/02/14 3:08 AM) Monocytes [2.0-12.0 9.5 % %] (09/02/14 3:08 AM) Eosinophils [0.0-4.0 1.8 % %] (09/02/14 3:08 AM) Basophils [0.0-1.0 0.7 % %] (09/02/14 3:08 AM) Segs-Bands # 4.9 K/CMM [1.5-8.1 K/CMM] (09/02/14 3:08 AM) Lymphocytes # 2.8 K/CMM [1.0-5.5 K/CMM] (09/02/14 3:08 AM) Monocytes # [0.0-0.8 0.8 K/CMM K/CMM] (09/02/14 3:08 AM) Eosinophils # 0.2 K/CMM [0.0-0.5 K/CMM] (09/02/14 3:08 AM) Basophils # [0.0-0.2 0.1 K/CMM K/CMM] (09/02/14 3:08 AM) Immunizations No data available for this section Procedures No data available for this section Social History Social History Type Response Substance Abuse Use: None. Alcohol Never, Previous treatment: None. Smoking Status Never smoker; Exposure to Tobacco Smoke None; Cigarette Smoking Last 365 Days No; Reg Smoking Cessation Counseling No Assessment and Plan No data available for this section
--- OUTSIDE RECORDS SUMMARY | 2018-04-01 09:22 | XMS REPORT | Summary of Care ---
Author Organization Unknown Address Unknown Phone Unavailable Encounter GABRIEL Valencia(RJ) [id number] Date(s): 11/16/13 - 11/16/13 [facility] [address] Discharge Diagnosis: Chronic pain Discharge Diagnosis: Back pain Discharge Diagnosis: Arthritis Discharge Disposition: Home Physician Attending: Russ Alejo MD Reason for Visit LOWER BACK PAIN/LEG PAIN Vital Signs Most recent to 1 2 oldest [Reference Range]: Height 162.56 cm (11/16/13 8:35 AM) Temperature Oral 98.1 DegF 98.3 DegF [96.4-99.1 DegF] (11/16/13 12:23 PM) (11/16/13 8:35 AM) Systolic Blood 145 mmHg 152 mmHg Pressure [90-140 *HI* *HI* mmHg] (11/16/13 12:23 PM) (11/16/13 8:35 AM) Diastolic Blood 79 mmHg 83 mmHg Pressure [60-90 (11/16/13 12:23 PM) (11/16/13 8:35 AM) mmHg] Respiratory Rate 16 BRMIN 16 BRMIN [14-20 BRMIN] (11/16/13 12:23 PM) (11/16/13 8:35 AM) Peripheral Pulse 74 bpm 80 bpm Rate [60-100 bpm] (11/16/13 12:23 PM) (11/16/13 8:35 AM) Weight 78.182 kg (11/16/13 8:35 AM) Body Mass Index 29.59 m2 (11/16/13 8:35 AM) Problem List Condition Effective Dates Status Health Status Informant Arthritis(Confirmed) Resolved Hypertension(Confirm Resolved ed) Allergies, Adverse Reactions, Alerts Substance Reaction Severity Status NKDA Active Medications [place] 7.5/325 oral tablet 1 tab, Route: PO, Drug Form: TAB, Dosing Weight 78.182, kg, ONCE, STAT, Start da te: 11/16/13 10:35:00, Stop date: 11/16/13 10:35:00 Start Date: 11/16/13 Stop Date: 11/16/13 Status: Completed Ultram 50 mg oral tablet 100 mg=2 tab, PO, Q6H, pain, # 20 tab, 0 Refill(s) Start Date: 11/16/13 Status: Ordered Medications Administered During Your Visit No data available for this section Immunizations No data available for this section Social History Social History Type Response
--- OUTSIDE RECORDS SUMMARY | 2018-04-01 09:22 | XMS REPORT | CCD ---
Author Author Auto Generated Organization [facility] Address Unknown Phone Unavailable Care Team Providers Care Cloud Automation Tester Name Role Phone Clary Garcia CP Allergies, Adverse Reactions, Alerts Substance Reaction Status NKDA Active Problem List Condition Effective Dates Status Arthritis Resolved Hypertension Resolved
--- OUTSIDE RECORDS SUMMARY | 2018-04-01 09:22 | XMS REPORT | CCD ---
Author Author Auto Generated Organization [facility] Address Unknown Phone Unavailable Care Team Providers Care Maori Physiotherapist Name Role Phone Clary Garcia RP Allergies, Adverse Reactions, Alerts Substance Reaction Status NKDA Active Problem List Condition Effective Dates Status Arthritis Resolved Hypertension Resolved
--- OUTSIDE RECORDS SUMMARY | 2018-04-01 09:22 | XMS REPORT | Summary of Care ---
Author Organization Unknown Address Unknown Phone Unavailable Encounter HQ Erik(RJ) [id number] Date(s): 08/14/14 - 08/14/14 [facility] [address] [place] [address]- Discharge Diagnosis: Migraine Discharge Disposition: Home Physician Attending: Saúl William MD Vital Signs 1 2 3 Most recent to oldest [Reference Range]: 165.1 cm (08/14/14 11:54 AM) Height 98.6 DegF (08/14/14 2:06 PM) 98.5 DegF (08/14/14 12:43 PM) 98.6 DegF (08/14/14 11:54 AM) Temperature Oral [96.4-99.1 DegF] 161/89 mmHg *HI* (08/14/14 2:06 PM) 137/86 mmHg (08/14/14 11:54 AM) Blood Pressure [90-140/60-90 mmHg] 153 mmHg *HI* (08/14/14 12:43 PM) Systolic Blood Pressure [90-140 mmHg] 66 mmHg (08/14/14 12:43 PM) Diastolic Blood Pressure [60-90 mmHg] 18 BRMIN (08/14/14 2:06 PM) 20 BRMIN (08/14/14 12:43 PM) 20 BRMIN (08/14/14 11:54 AM) Respiratory Rate [14-20 BRMIN] 102 bpm *HI* (08/14/14 2:06 PM) 74 bpm (08/14/14 12:43 PM) 90 bpm (08/14/14 11:54 AM) Peripheral Pulse Rate [60-100 bpm] 73.636 kg (08/14/14 11:54 AM) Weight 27.01 m2 (08/14/14 11:54 AM) Body Mass Index Problem List Condition Effective Dates Status Health Status Informant Allergic rhinitis1 05/02/13 Active Arthritis(Confirmed) Resolved Asthma2 01/28/13 Active Benign essential 07/09/12 Active hypertension3 Chronic back pain4 02/16/59 Active Chronic headache 05/02/13 Active disorder5 Gastroesophageal 08/08/13 Active reflux disease6 Hyperlipidemia(Confi Resolved rmed) Hypertension(Confirm Resolved ed) Insomnia7 01/28/13 Active Migraine(Confirmed) Resolved Mixed 12/28/12 Active hyperlipidemia8 Osteoarthritis9 Active Fxgfhoawzf99 Active Sleep apnea11 10/27/13 Active Spinal Resolved stenosis(Confirmed) Prsqwmz82 05/02/13 Active 1Data migrated from [employer] on 07/15/14. 2Data migrated from [employer] on 07/15/14. 3Data migrated from [employer] on 07/15/14. 4Data migrated from [employer] on 07/15/14. 5Data migrated from [employer] on 07/15/14. 6Data migrated from [employer] on 07/15/14. 7Data migrated from [employer] on 07/15/14. 8Data migrated from [employer] on 07/15/14. 9Data migrated from [employer] on 07/15/14. 10Data migrated from [employer] on 07/15/14. 11Data migrated from [employer] on 07/15/14. 12Data migrated from [employer] on 07/15/14. Allergies, Adverse Reactions, Alerts Substance Reaction Severity Status NKDA Active Medications Benadryl 12.5 mg, Route: IVP, ONCE, Dosing Weight 73.636, kg, Priority: STAT, Start date: 08/14/14 12:33:00, Stop date: 08/14/14 12:33:00 Start Date: 08/14/14 Stop Date: 08/14/14 Status: Completed Fioricet 300 mg-50 mg-40 mg oral capsule 1 cap, PO, Q4H, PRN PRN Headache, Do not exceed 6 capsules in 24 hours, X 2 day, # 12 cap, 0 Refill(s) Special Instructions: Do not exceed 6 capsules in 24 hours Start Date: 08/14/14 Stop Date: 08/16/14 Status: Completed Reglan 20 mg, Route: IVP, Drug form: INJ, ONCE, Dosing Weight 73.636, kg, Priority: STA T, Start date: 08/14/14 12:32:00, Stop date: 08/14/14 12:32:00 Start Date: 08/14/14 Stop Date: 08/14/14 Status: Completed Results No data available for this section Immunizations No data available for this section Procedures No data available for this section Social History Social History Type Response Alcohol Never Smoking Status Never smoker; Exposure to Tobacco Smoke None; Cigarette Smoking Last 365 Days No; Reg Smoking Cessation Counseling No Assessment and Plan No data available for this section
--- OUTSIDE RECORDS SUMMARY | 2018-04-01 09:22 | XMS REPORT | Summary of Care ---
Author Organization Unknown Address Unknown Phone Unavailable Encounter GABRIEL Valencia(RJ) [id number] Date(s): 05/05/14 - 05/05/14 [facility] [address] [place] [address]- [phone] Discharge Diagnosis: Back pain, chronic Discharge Disposition: Home Physician Attending: Bertha Houston MD Vital Signs 1 2 3 Most recent to oldest [Reference Range]: 162.56 cm (05/05/14 6:06 AM) Height 98.3 DegF (05/05/14 10:27 AM) 98.1 DegF (05/05/14 6:26 AM) 98.4 DegF (05/05/14 6:06 AM) Temperature Oral [96.4-99.1 DegF] 141/60 mmHg *HI* (05/05/14 10:27 AM) 167/71 mmHg *HI* (05/05/14 7:31 AM) 176/71 mmHg *HI* (05/05/14 7:10 AM) Blood Pressure [90-140/60-90 mmHg] 13 BRMIN *LOW* (05/05/14 10:27 AM) 17 BRMIN (05/05/14 7:10 AM) 18 BRMIN (05/05/14 6:26 AM) Respiratory Rate [14-20 BRMIN] 58 bpm *LOW* (05/05/14 6:26 AM) 62 bpm (05/05/14 6:06 AM) Peripheral Pulse Rate [60-100 bpm] 72.727 kg (05/05/14 6:06 AM) Weight 27.52 m2 (05/05/14 6:06 AM) Body Mass Index Problem List Condition Effective Dates Status Health Status Informant Arthritis(Confirmed) Resolved Hypertension(Confirm Resolved ed) Migraine(Confirmed) Resolved Spinal Resolved stenosis(Confirmed) Allergies, Adverse Reactions, Alerts Substance Reaction Severity Status NKDA Active Medications Dilaudid 0.5 mg, 0.5 mL, Route: IVP, Drug form: INJ, ONCE, Dosing Weight 72.727, kg, Prio rity: STAT, Start date: 05/05/14 7:09:00, Stop date: 05/05/14 7:09:00 Start Date: 05/05/14 Stop Date: 05/05/14 Status: Completed Sodium Chloride 0.9% (Bolus) IV 1,000 mL, 1,000 ml/hr, Infuse Over: 1 hr, Route: IV, 1,000, Drug form: INJ, ONCE , Priority: STAT, Dosing Weight 72.727 kg, Start date: 05/05/14 7:09:00, Duratio n: 1 doses or times, Stop date: 05/05/14 7:09:00 Start Date: 05/05/14 Stop Date: 05/05/14 Status: Completed tramadol 50 mg oral tablet 50 mg=1 tab, PO, Q6H, Pain Score 7-10, # 12 tab, 0 Refill(s) Start Date: 05/05/14 Status: Ordered Zofran 4 mg, 2 mL, Route: IVP, Drug form: INJ, ONCE, Dosing Weight 72.727, kg, Priority : STAT, Start date: 05/05/14 7:09:00, Stop date: 05/05/14 7:09:00 Notes: (Same as: Zofran) Start Date: 05/05/14 Stop Date: 05/05/14 Status: Completed Results ELECTROLYTES Most recent to 1 oldest [Reference Range]: Sodium Lvl [135-145 139 mEq/L mEq/L] (05/05/14 7:35 AM) Potassium Lvl 3.6 mEq/L [3.5-5.1 mEq/L] (05/05/14 7:35 AM) Chloride Lvl [95-109 104 mEq/L mEq/L] (05/05/14 7:35 AM) CO2 [24-32 mEq/L] 25 mEq/L (05/05/14 7:35 AM) AGAP [10.0-20.0 13.6 mEq/L mEq/L] (05/05/14 7:35 AM) CHEM PANEL Most recent to 1 oldest [Reference Range]: Creatinine Lvl 0.6 mg/dL [0.5-1.4 mg/dL] (05/05/14 7:35 AM) eGFR 92 mL/min/1.73m2 1 *NA* (05/05/14 7:35 AM) BUN [7-22 mg/dL] 10 mg/dL (05/05/14 7:35 AM) B/C Ratio [6-25] 17 (05/05/14 7:35 AM) Glucose Lvl [70-99 122 mg/dL 2 mg/dL] *HI* (05/05/14 7:35 AM) Total Protein 7.4 g/dL [6.4-8.4 g/dL] (05/05/14 7:35 AM) Albumin Lvl [3.5-5.0 3.7 g/dL g/dL] (05/05/14 7:35 AM) Globulin [2.0-4.0 3.7 g/dL g/dL] (05/05/14 7:35 AM) A/G Ratio [0.7-1.6] 1.0 (05/05/14 7:35 AM) Calcium Lvl 8.7 mg/dL [8.5-10.5 mg/dL] (05/05/14 7:35 AM) Magnesium Lvl 2.2 mg/dL [1.8-2.4 mg/dL] (05/05/14 7:35 AM) ALT [0-65 unit/L] 18 unit/L (05/05/14 7:35 AM) AST [0-37 unit/L] 13 unit/L (05/05/14 7:35 AM) Alk Phos [39-136 88 unit/L unit/L] (05/05/14 7:35 AM) Bili Total [0.2-1.3 0.4 mg/dL mg/dL] (05/05/14 7:35 AM) 1Result Comment: The eGFR is calculated [...] be mul tiplied by the estimated BMI. 2Interpretive Data: Adult reference range values reflect the clinical guidelines of the [place] [employer]. CARDIAC ENZYMES Most recent to 1 oldest [Reference Range]: CK MB [0.5-3.6 1.6 ng/mL ng/mL] (05/05/14 7:35 AM) Troponin-I 0.02 ng/mL [0.00-0.40 ng/mL] (05/05/14 7:35 AM) URINE AND STOOL Most recent to 1 oldest [Reference Range]: UA Turbidity [Clear] Clear (05/05/14 8:21 AM) UA Color Ltyellow *NA* (05/05/14 8:21 AM) UA pH [5.0-8.0] 7.0 (05/05/14 8:21 AM) UA Spec Grav 1.010 [<=1.030] (05/05/14 8:21 AM) UA Glucose [Negative Negative mg/dL mg/dL] *NA* (05/05/14 8:21 AM) UA Blood [Negative] Negative (05/05/14 8:21 AM) UA Ketones [Negative Negative mg/dL mg/dL] *NA* (05/05/14 8:21 AM) UA Protein [Negative Negative mg/dL mg/dL] (05/05/14 8:21 AM) UA Urobilinogen <=1.0 mg/dL [0.1-1.0 mg/dL] *NA* (05/05/14 8:21 AM) UA Bili [Negative] Negative *NA* (05/05/14 8:21 AM) UA Leuk Est Moderate [Negative] *ABN* (05/05/14 8:21 AM) UA Nitrite Negative [Negative] (05/05/14 8:21 AM) UA WBC [0-5 /HPF] 7 /HPF *HI* (05/05/14 8:21 AM) UA RBC [0-2 /HPF] 4 /HPF *HI* (05/05/14 8:21 AM) UA Sq Epi [Few /LPF] Occasional /LPF *NA* (05/05/14 8:21 AM) UA Mucus [None Seen Few /LPF /LPF] *NA* (05/05/14 8:21 AM) HEMATOLOGY Most recent to 1 oldest [Reference Range]: WBC [3.7-10.4 K/CMM] 8.8 K/CMM (05/05/14 7:35 AM) RBC [4.20-5.40 4.60 M/CMM M/CMM] (05/05/14 7:35 AM) Hgb [12.0-16.0 g/dL] 12.9 g/dL (05/05/14 7:35 AM) Hct [36.0-48.0 %] 38.6 % (05/05/14 7:35 AM) MCV [80.0-98.0 fL] 84.0 fL (05/05/14 7:35 AM) MCH [27.0-31.0 pg] 28.1 pg (05/05/14 7:35 AM) MCHC [32.0-36.0 33.5 g/dL g/dL] (05/05/14 7:35 AM) RDW [11.5-14.5 %] 14.1 % (05/05/14 7:35 AM) Platelet [133-450 291 K/CMM K/CMM] (05/05/14 7:35 AM) MPV [7.4-10.4 fL] 8.4 fL (05/05/14 7:35 AM) Segs [45.0-75.0 %] 67.1 % (05/05/14 7:35 AM) Lymphocytes 21.5 % [20.0-40.0 %] (05/05/14 7:35 AM) Monocytes [2.0-12.0 7.7 % %] (05/05/14 7:35 AM) Eosinophils [0.0-4.0 2.8 % %] (05/05/14 7:35 AM) Basophils [0.0-1.0 0.9 % %] (05/05/14 7:35 AM) Segs-Bands # 5.9 K/CMM [1.5-8.1 K/CMM] (05/05/14 7:35 AM) Lymphocytes # 1.9 K/CMM [1.0-5.5 K/CMM] (05/05/14 7:35 AM) Monocytes # [0.0-0.8 0.7 K/CMM K/CMM] (05/05/14 7:35 AM) Eosinophils # 0.2 K/CMM [0.0-0.5 K/CMM] (05/05/14 7:35 AM) Basophils # [0.0-0.2 0.1 K/CMM K/CMM] (05/05/14 7:35 AM) Immunizations No data available for this section Procedures No data available for this section Social History Social History Type Response Smoking Status Never smoker; Exposure to Tobacco Smoke None; Cigarette Smoking Last 365 Days No; Reg Smoking Cessation Counseling No Assessment and Plan No data available for this section
--- OUTSIDE RECORDS SUMMARY | 2018-04-01 09:22 | XMS REPORT | Summary of Care ---
Author Organization Unknown Address Unknown Phone Unavailable Encounter GABRIEL Valencia(RJ) [id number] Date(s): 10/19/13 - 10/20/13 [facility] [address] [address] Discharge Diagnosis: Acute viral syndrome Discharge Disposition: Home Physician Attending: René Arndt MD Reason for Visit VOMITING Vital Signs 1 2 3 Most recent to oldest [Reference Range]: 98.9 DegF (10/20/13 2:30 AM) 98.9 DegF (10/19/13 8:44 PM) Temperature Oral [96.4-99.1 DegF] 156 mmHg *HI* (10/20/13 2:30 AM) 157 mmHg *HI* (10/20/13 1:30 AM) 162 mmHg *HI* (10/19/13 8:44 PM) Systolic Blood Pressure [90-140 mmHg] 68 mmHg (10/20/13 2:30 AM) 76 mmHg (10/20/13 1:30 AM) 89 mmHg (10/19/13 8:44 PM) Diastolic Blood Pressure [60-90 mmHg] 16 BRMIN (10/20/13 2:30 AM) 18 BRMIN (10/20/13 1:30 AM) 20 BRMIN (10/19/13 8:44 PM) Respiratory Rate [14-20 BRMIN] 65 bpm (10/20/13 2:30 AM) 67 bpm (10/20/13 1:30 AM) 67 bpm (10/19/13 8:44 PM) Peripheral Pulse Rate [60-100 bpm] 71.591 kg (10/19/13 8:44 PM) Weight Problem List Condition Effective Dates Status Health Status Informant Arthritis(Confirmed) Resolved Hypertension(Confirm Resolved ed) Allergies, Adverse Reactions, Alerts Substance Reaction Severity Status NKDA Active Medications ketorolac 30 mg, Route: IVP, Drug form: INJ, ONCE, Dosing Weight 71.591, kg, Priority: STA T, Start date: 10/20/13 1:54:00, Stop date: 10/20/13 1:54:00 Start Date: 10/20/13 Stop Date: 10/20/13 Status: Completed [place] 5/325 oral tablet 1 tab, PO, Q4-6H, as needed for pain, # 30 tab, 0 Refill(s) Start Date: 10/20/13 Status: Ordered Sodium Chloride 0.9% (Bolus) IV 500 mL, 500 ml/hr, Infuse Over: 1 hr, Route: IV, 500, Drug form: INJ, ONCE, Prio rity: STAT, Dosing Weight 71.591 kg, Start date: 10/20/13 0:20:00, Duration: 1 d oses or times, Stop date: 10/20/13 0:20:00 Start Date: 10/20/13 Stop Date: 10/20/13 Status: Completed Zofran 4 mg, 2 mL, Route: IVP, Drug form: INJ, ONCE, Dosing Weight 71.591, kg, Priority : STAT, Start date: 10/20/13 0:21:00, Stop date: 10/20/13 0:21:00 Notes: (Same as: Zofran) Start Date: 10/20/13 Stop Date: 10/20/13 Status: Completed Zofran ODT 4 mg oral tablet, disintegrating 4 mg=1 tab, PO, TID, as needed for nausea/vomiting, Dissolve tab under tongue, # 10 tab, 0 Refill(s) Special Instructions: Dissolve tab under tongue Start Date: 10/20/13 Status: Ordered Results ELECTROLYTES Most recent to 1 oldest [Reference Range]: Sodium Lvl [135-145 136 mEq/L mEq/L] (10/20/13 12:21 AM) Potassium Lvl 3.5 mEq/L [3.5-5.1 mEq/L] (10/20/13 12:21 AM) Chloride Lvl [95-109 102 mEq/L mEq/L] (10/20/13 12:21 AM) CO2 [24-32 mEq/L] 26 mEq/L (10/20/13 12:21 AM) AGAP [10.0-20.0 11.5 mEq/L mEq/L] (10/20/13 12:21 AM) CHEM PANEL Most recent to 1 oldest [Reference Range]: Creatinine Lvl 0.6 mg/dL [0.5-1.4 mg/dL] (10/20/13 12:21 AM) eGFR 92 mL/min/1.73m2 1 *NA* (10/20/13 12:21 AM) BUN [7-22 mg/dL] 8 mg/dL (10/20/13 12:21 AM) Glucose Lvl [70-99 114 mg/dL 2 mg/dL] *HI* (10/20/13 12:21 AM) Calcium Lvl 8.7 mg/dL [8.5-10.5 mg/dL] (10/20/13 12:21 AM) 1Result Comment: The eGFR is calculated [...] values reflect the clinical guidelines of the [place] [employer]. HEMATOLOGY Most recent to 1 oldest [Reference Range]: WBC [3.7-10.4 K/CMM] 10.4 K/CMM (10/20/13 12:21 AM) RBC [4.20-5.40 4.34 M/CMM M/CMM] (10/20/13 12:21 AM) Hgb [12.0-16.0 g/dL] 12.3 g/dL (10/20/13 12:21 AM) Hct [36.0-48.0 %] 36.8 % (10/20/13 12:21 AM) MCV [80.0-98.0 fL] 84.8 fL (10/20/13 12:21 AM) MCH [27.0-31.0 pg] 28.4 pg (10/20/13 12:21 AM) MCHC [32.0-36.0 33.4 g/dL g/dL] (10/20/13 12:21 AM) RDW [11.5-14.5 %] 14.1 % (10/20/13 12: AM) Platelet [133-450 313 K/CMM K/CMM] (10/20/13 12:21 AM) MPV [7.4-10.4 fL] 7.9 fL (10/20/13 12:21 AM) Segs [45.0-75.0 %] 57.9 % (10/20/13 12:21 AM) Lymphocytes 30.9 % [20.0-40.0 %] (10/20/13 12:21 AM) Monocytes [2.0-12.0 8.8 % %] (10/20/13 12:21 AM) Eosinophils [0.0-4.0 1.8 % %] (10/20/13 12:21 AM) Basophils [0.0-1.0 0.6 % %] (10/20/13 12:21 AM) Segs-Bands # 6.0 K/CMM [1.5-8.1 K/CMM] (10/20/13 12:21 AM) Lymphocytes # 3.2 K/CMM [1.0-5.5 K/CMM] (10/20/13 12:21 AM) Monocytes # [0.0-0.8 0.9 K/CMM K/CMM] *HI* (10/20/13 12:21 AM) Eosinophils # 0.2 K/CMM [0.0-0.5 K/CMM] (10/20/13 12:21 AM) Basophils # [0.0-0.2 0.1 K/CMM K/CMM] (10/20/13 12:21 AM) Medications Administered During Your Visit No data available for this section Immunizations No data available for this section Social History Social History Type Response
--- OUTSIDE RECORDS SUMMARY | 2018-04-01 09:23 | XMS REPORT | Summary of Care ---
Author Author [facility] Organization [facility] Address Unknown Phone Unavailable Encounter GABRIEL Valencia(RJ) [id number] Date(s): 05/27/15 - 05/27/15 [facility] [address] [place] [address]- Discharge Diagnosis: Other muscle spasm Discharge Diagnosis: Weakness Discharge Disposition: Home Attending Physician: Yvonne Padilla DO Vital Signs 1 2 3 Most recent to oldest [Reference Range]: 162.56 cm (05/27/15 8:01 PM) Height 98.1 DegF (05/27/15 11:00 PM) 98.2 DegF (05/27/15 8:01 PM) Temperature Oral [96.4-99.1 DegF] 115/63 mmHg (05/27/15 11:00 PM) 115/63 mmHg (05/27/15 10:10 PM) 138/81 mmHg (05/27/15 8:01 PM) Blood Pressure [90-140/60-90 mmHg] 15 BRMIN (05/27/15 11:00 PM) 20 BRMIN (05/27/15 10:10 PM) 19 BRMIN (05/27/15 9:15 PM) Respiratory Rate [14-20 BRMIN] 113 bpm *HI* (05/27/15 8:01 PM) Peripheral Pulse Rate [60-100 bpm] 63.636 kg (05/27/15 8:01 PM) Weight 24.08 m2 (05/27/15 8:01 PM) Body Mass Index Problem List Condition Effective Dates Status Health Status Informant Acute bronchitis1, 2 08/08/13 Resolved Allergic rhinitis3 05/02/13 Active Arthritis(Confirmed) Active Arthritis(Confirmed) Active Asthma4 01/28/13 Active Backache(Confirmed) Active Benign essential 07/09/12 Active hypertension5 Child examination Resolved finding6 Chronic back pain7 1/1/60 Active Chronic headache 05/02/13 Active disorder8 Evaluation finding9 Resolved Gastroesophageal 08/08/13 Active reflux rplokll64 Gynecologic Resolved rlyzsjysspj97 HTN Active (hypertension)(Confi rmed) Hyperlipidemia(Confi Active rmed) Hyperlipidemia(Confi Active rmed) Hypertension(Confirm Active ed) Impaired fasting 01/16/13 Resolved vbzykqaxy81 Impaired glucose 01/16/13 Active jjbrzaztf31 Influenza 10/27/13 Resolved rrqkljtutuy12, 15 Ermeqshf30 01/28/13 Active Major depressive 03/24/14 Active Migraine(Confirmed) Active Migraine(Confirmed) Active Mixed 12/28/12 Active ayoxjbnfnyhahw04 Atkxeycgftzrzz25 Active Qmrhulnpls10 Active Physical examination Resolved Screening Resolved lsxwfkjeooi50 Sleep apnea23 10/27/13 Active 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) Honlbjx12 05/02/13 Active 1Data migrated from [employer] [...] Alerts Substance Reaction Severity Status NKDA Active NKDA1 [facility] Originally documented as NKA. Medications Benadryl 25 mg, 0.5 mL, Route: IVP, Drug form: INJ, ONCE, Dosing Weight 63.636, kg, Prior ity: STAT, Start date: 05/27/15 21:54:00 CDT, Stop date: 05/27/15 21:54:00 CDT Notes: (Same as: Benadryl) Start Date: 05/27/15 Stop Date: 05/27/15 Status: Completed metroNIDAZOLE 500 mg, 100 mL, Route: IVPB, Drug form: INJ, ONCE, Dosing Weight 63.636, kg, Tammy ority: STAT, Start date: 05/27/15 21:54:00 CDT, Stop date: 05/27/15 21:54:00 CDT Notes: (Same as: Flagyl) Avoid alcohol. Start Date: 05/27/15 Stop Date: 05/27/15 Status: Completed NS (Bolus) IV 1,000 mL, 1,000 ml/hr, Infuse Over: 1 hr, Route: IV, 1,000, Drug form: INJ, ONCE , Priority: STAT, Dosing Weight 63.636 kg, Start date: 05/27/15 21:54:00 CDT, Du ration: 1 doses or times, Stop date: 05/27/15 21:54:00 CDT Start Date: 05/27/15 Stop Date: 05/27/15 Status: Completed Sodium Chloride 0.9% IV 1,000 mL 1,000 mL, Rate: 75 ml/hr, Infuse over: 13.3 hr, Route: IV, Dosing Weight 63.636 kg, Total Volume: 1,000, Priority: STAT, Start date: 05/27/15 20:21:00 CDT, Dura tion: 1 doses or times, Stop date: 05/28/15 9:38:00 CDT Start Date: 05/27/15 Stop Date: 05/27/15 Status: Discontinued Results ELECTROLYTES Most recent to 1 oldest [Reference Range]: Sodium Lvl [135-145 136 mEq/L mEq/L] (05/27/15 8:30 PM) Potassium Lvl 3.8 mEq/L [3.5-5.1 mEq/L] (05/27/15 8:30 PM) Chloride Lvl [95-109 102 mEq/L mEq/L] (05/27/15 8:30 PM) CO2 [24-32 mEq/L] 27 mEq/L (05/27/15 8:30 PM) AGAP [10.0-20.0 10.8 mEq/L mEq/L] (05/27/15 8:30 PM) CHEM PANEL Most recent to 1 oldest [Reference Range]: Creatinine Lvl 0.71 mg/dL [0.50-1.40 mg/dL] (05/27/15 8:30 PM) eGFR 85 mL/min/1.73m2 1 *NA* (05/27/15 8:30 PM) BUN [7-22 mg/dL] 11 mg/dL (05/27/15 8:30 PM) B/C Ratio [6-25] 15 (05/27/15 8:30 PM) Glucose Lvl [70-99 118 mg/dL mg/dL] *HI* (05/27/15 8:30 PM) Total Protein 7.0 g/dL [6.4-8.4 g/dL] (05/27/15 8:30 PM) Albumin Lvl [3.5-5.0 3.7 g/dL g/dL] (05/27/15 8:30 PM) Globulin [2.0-4.0 3.3 g/dL g/dL] (05/27/15 8:30 PM) A/G Ratio [0.7-1.6] 1.1 (05/27/15 8:30 PM) Calcium Lvl 9.0 mg/dL [8.5-10.5 mg/dL] (05/27/15 8:30 PM) Magnesium Lvl 2.2 mg/dL [1.8-2.4 mg/dL] (05/27/15 8:30 PM) ALT [0-65 unit/L] 22 unit/L (05/27/15 8:30 PM) AST [0-37 unit/L] 11 unit/L (05/27/15 8:30 PM) Alk Phos [39-136 75 unit/L unit/L] (05/27/15 8:30 PM) Bili Total [0.2-1.3 0.4 mg/dL mg/dL] (05/27/15 8:30 PM) 1Result Comment: The eGFR is calculated using [...] Most recent to 1 oldest [Reference Range]: Total CK [12-191 51 unit/L unit/L] (05/27/15 8:30 PM) CK MB [0.5-3.6 1.0 ng/mL ng/mL] (05/27/15 8:30 PM) CK MB Index 2.0 [0.0-2.5] (05/27/15 8:30 PM) Troponin-I 0.03 ng/mL [0.00-0.40 ng/mL] (05/27/15 8:30 PM) HEMATOLOGY Most recent to 1 oldest [Reference Range]: WBC [3.7-10.4 K/CMM] 10.7 K/CMM *HI* (05/27/15 8:30 PM) RBC [4.20-5.40 4.47 M/CMM M/CMM] (05/27/15 8:30 PM) Hgb [12.0-16.0 g/dL] 12.9 g/dL (05/27/15 8:30 PM) Hct [36.0-48.0 %] 38.3 % (05/27/15 8:30 PM) MCV [80.0-98.0 fL] 85.7 fL (05/27/15 8:30 PM) MCH [27.0-31.0 pg] 28.8 pg (05/27/15 8:30 PM) MCHC [32.0-36.0 33.6 g/dL g/dL] (05/27/15 8:30 PM) RDW [11.5-14.5 %] 14.5 % (05/27/15 8:30 PM) Platelet [133-450 331 K/CMM K/CMM] (05/27/15 8:30 PM) MPV [7.4-10.4 fL] 7.4 fL (05/27/15 8:30 PM) Segs [45.0-75.0 %] 68.6 % (05/27/15 8:30 PM) Lymphocytes 21.2 % [20.0-40.0 %] (05/27/15 8:30 PM) Monocytes [2.0-12.0 9.0 % %] (05/27/15 8:30 PM) Eosinophils [0.0-4.0 0.7 % %] (05/27/15 8:30 PM) Basophils [0.0-1.0 0.5 % %] (05/27/15 8:30 PM) Segs-Bands # 7.3 K/CMM [1.5-8.1 K/CMM] (05/27/15 8:30 PM) Lymphocytes # 2.3 K/CMM [1.0-5.5 K/CMM] (05/27/15 8:30 PM) Monocytes # [0.0-0.8 1.0 K/CMM K/CMM] *HI* (05/27/15 8:30 PM) Eosinophils # 0.1 K/CMM [0.0-0.5 K/CMM] (05/27/15 8:30 PM) Basophils # [0.0-0.2 0.1 K/CMM K/CMM] (05/27/15 8:30 PM) Immunizations Vaccine Date Refusal Reason influenza virus vaccine, inactivated1 10/27/13 influenza virus vaccine, inactivated2 10/27/13 pneumococcal 23-valent vaccine3 07/25/11 1Result Comment: done high dose. Migrated from OBS ; Data migrated from [employer] on 08/30/2014. 2Result Comment: fluzone high dose [[id number]]. Migrated from OBS ; Data migrated from [employer] on 08/30/2014. 3Result Comment: historical. Migrated from OBS ; Data migrated from [employer] on 08/30/2014. Procedures Procedure Date Related Diagnosis Body Site Excision of vein Social History Social History Type Response Substance Abuse Use: None. Alcohol Never Smoking Status Never smoker; Exposure to Tobacco Smoke None; Cigarette Smoking Last 365 Days No; Reg Smoking Cessation Counseling No Assessment and Plan No data available for this section
--- OUTSIDE RECORDS SUMMARY | 2018-04-01 09:23 | XMS REPORT | Summary of Care ---
Author Organization Unknown Address Unknown Phone Unavailable Encounter HQ Erik(RJ) [id number] Date(s): 08/16/14 - 08/17/14 [facility] [address] [place] [address]- Discharge Disposition: Home Physician Attending: Andrea Cohen MD Physician Admitting: Andrea Cohen MD Physician_Referring: Andrea Cohen MD Vital Signs 1 2 3 Most recent to oldest [Reference Range]: 162.56 cm (08/16/14 7:54 PM) Height 97.7 DegF (08/17/14 11:55 AM) 98.4 DegF (08/17/14 8:00 AM) 98.6 DegF (08/17/14 4:00 AM) Temperature Oral [96.4-99.1 DegF] 175/85 mmHg *HI* (08/17/14 11:55 AM) 186/96 mmHg *HI* (08/17/14 8:00 AM) 138/70 mmHg (08/17/14 4:00 AM) Blood Pressure [90-140/60-90 mmHg] 16 BRMIN (08/17/14 11:55 AM) 16 BRMIN (08/17/14 8:00 AM) 12 BRMIN *LOW* (08/17/14 6:40 AM) Respiratory Rate [14-20 BRMIN] 72 bpm (08/17/14 11:55 AM) 76 bpm (08/17/14 8:00 AM) 73 bpm (08/17/14 4:00 AM) Peripheral Pulse Rate [60-100 bpm] 71.273 kg (08/16/14 7:54 PM) Weight 26.97 m2 (08/16/14 7:54 PM) Body Mass Index Problem List Condition Effective Dates Status Health Status Informant Allergic rhinitis1 05/02/13 Active Arthritis(Confirmed) Active Arthritis(Confirmed) Resolved Asthma2 01/28/13 Active Backache(Confirmed) Active Benign essential 07/09/12 Active hypertension3 Chronic back pain4 02/16/59 Active Chronic headache 05/02/13 Active disorder5 Gastroesophageal 08/08/13 Active reflux disease6 HTN Active (hypertension)(Confi rmed) Hyperlipidemia(Confi Resolved rmed) Hyperlipidemia(Confi Active rmed) Hypertension(Confirm Resolved ed) Insomnia7 01/28/13 Active Migraine(Confirmed) Active Migraine(Confirmed) Resolved Mixed 12/28/12 Active hyperlipidemia8 Osteoarthritis9 Active Fhmpiqlhnf18 Active Sleep apnea11 10/27/13 Active Spinal Active stenosis(Confirmed) Spinal Resolved stenosis(Confirmed) Grlusml74 05/02/13 Active 1Data migrated from [employer] [...] Substance Reaction Severity Status NKDA Active Medications Ambien 5 mg, 1 tab, Route: PO, Drug form: TAB, Bedtime, Dosing Weight 71.273, kg, PRN I nsomnia, Start date: 08/16/14 19:55:00, Duration: 30 day, Stop date: 09/15/14 19 :54:00 Notes: (Same As: Ambien) Start Date: 08/16/14 Stop Date: 08/17/14 Status: Discontinued Ambien 5 mg oral tablet 5 mg=1 tab, PO, Bedtime, PRN for sleep, X 14 day, # 14 tab, 0 Refill(s) Start Date: 08/17/14 Stop Date: 08/31/14 Status: Ordered aspirin 325 mg tablet 325 mg, 1 tab, Route: PO, Drug form: TAB, Daily, Dosing Weight 73.636, kg, Start date: 08/16/14 20:02:00, Duration: 30 day, Stop date: 09/15/14 9:00:00 Notes: Take with food. Start Date: 08/16/14 Stop Date: 08/17/14 Status: Discontinued aspirin 81 mg tablet, enteric coated 81 mg=1 tab, PO, Daily, # 120 tab, 11 Refill(s) Start Date: 08/17/14 Status: Ordered atropine 0.5 mg, 5 mL, Route: IVP, Drug form: INJ, ONCE, Dosing Weight 71.273, kg, PRN Br adycardia, Start date: 08/16/14 22:57:00, For symptomatic bradycardia heart rate less than 40 Start Date: 08/16/14 Stop Date: 08/17/14 Status: Discontinued gabapentin 300 mg oral capsule 300 mg=1 cap, PO, BID, # 90 cap, 1 Refill(s) Start Date: 08/16/14 Status: Ordered gabapentin 300 mg oral capsule 300 mg, 1 cap, Route: PO, Drug form: CAP, BID, Dosing Weight 71.273, kg, Start d ate: 08/17/14 9:00:00, Duration: 30 day, Stop date: 09/15/14 17:00:00 Notes: (Same as: Neurontin) Start Date: 08/17/14 Stop Date: 08/17/14 Status: Discontinued metoprolol 50 mg oral tablet, extended release 50 mg=1 tab, PO, Daily, # 90 tab, 0 Refill(s) Start Date: 08/16/14 Status: Ordered metoprolol extended release 50 mg, 1 tab, Route: PO, Drug form: ERTAB, Daily, Start date: 08/17/14 9:00:00, Duration: 30 day, Stop date: 09/15/14 9:00:00 Notes: (Same as: Toprol XL) May split tab, but do not crush. Start Date: 08/17/14 Stop Date: 08/17/14 Status: Discontinued nabumetone 500 mg, Route: PO, Drug form: TAB, BID, Dosing Weight 71.273, kg, Start date: 9:00:00, Duration: 30 day, Stop date: 09/15/14 17:00:00 Start Date: 08/17/14 Stop Date: 08/17/14 Status: Discontinued nabumetone 500 mg oral tablet 500 mg=1 tab, PO, BID, 0 Refill(s) Start Date: 08/16/14 Status: Ordered NIFEdipine 30 mg oral tablet, extended release 30 mg=1 tab, PO, ABXQ8H, 0 Refill(s) Start Date: 08/16/14 Status: Ordered NIFEdipine 30 mg oral tablet, extended release 30 mg, 1 tab, Route: PO, Drug form: ERTAB, ABXQ8H, Dosing Weight 71.273, kg, Sta rt date: 08/17/14 9:00:00, Duration: 30 day, Stop date: 09/16/14 1:00:00 Notes: (Same as: Procardia XL)"Do Not Crush" "Avoid grapefruit and grapefruit j uice" Start Date: 08/17/14 Stop Date: 08/17/14 Status: Discontinued nitroglycerin 0.4 mg sublingual tablet 0.4 mg, 1 tab, Route: SL, Drug form: TAB, Q5Min, Dosing Weight 71.273, kg, PRN C hest Pain, Start date: 08/16/14 22:57:00, Duration: 30 day, Stop date: 09/15/14 22:56:00 Notes: (Same as:Nitroquick, Nitrostat)"Do Not Crush" Sublingual tablet Start Date: 08/16/14 Stop Date: 08/17/14 Status: Discontinued tramadol 50 mg oral tablet 50 mg=1 tab, PO, Q6H, PRN Pain Score 4-6, 0 Refill(s) Start Date: 08/16/14 Status: Ordered tramadol 50 mg oral tablet 50 mg, 1 tab, Route: PO, Drug form: TAB, Q6H, Dosing Weight 71.273, kg, PRN Pain Score 4-6, Start date: 08/17/14 8:26:00, Duration: 30 day, Stop date: 09/16/14 8:25:00 Notes: Not to exceed 400mg/day. (Same As: Ultram) Start Date: 08/17/14 Stop Date: 08/17/14 Status: Discontinued Tylenol 650 mg, 2 tab, Route: PO, Drug form: TAB, Q6H, Dosing Weight 71.273, kg, PRN Taylor n Score 1-3, Start date: 08/16/14 20:20:00, Duration: 30 day, Stop date: 5 20:19:00 Notes: Do not exceed 4 gm/day. (Same as: Tylenol) Start Date: 08/16/14 Stop Date: 08/17/14 Status: Discontinued Results ELECTROLYTES Most recent to 1 2 oldest [Reference Range]: Sodium Lvl [135-145 138 mEq/L mEq/L] (08/17/14 2:16 AM) Potassium Lvl 3.8 mEq/L [3.5-5.1 mEq/L] (08/17/14 2:16 AM) Chloride Lvl [95-109 104 mEq/L mEq/L] (08/17/14 2:16 AM) CO2 [24-32 mEq/L] 24 mEq/L (08/17/14 2:16 AM) AGAP [10.0-20.0 13.8 mEq/L mEq/L] (08/17/14 2:16 AM) CHEM PANEL Most recent to 1 2 oldest [Reference Range]: Creatinine Lvl 0.7 mg/dL [0.5-1.4 mg/dL] (08/17/14 2:16 AM) eGFR 87 mL/min/1.73m2 1 *NA* (08/17/14 2:16 AM) BUN [7-22 mg/dL] 12 mg/dL (08/17/14 2:16 AM) Glucose Lvl [70-99 110 mg/dL 2 mg/dL] *HI* (08/17/14 2:16 AM) Calcium Lvl 8.5 mg/dL [8.5-10.5 mg/dL] (08/17/14 2:16 AM) 1Result Comment: The eGFR is calculated [...] values reflect the clinical guidelines of the [employer]. CARDIAC ENZYMES Most recent to 1 2 oldest [Reference Range]: Total CK [12-191 54 unit/L 52 unit/L unit/L] (08/17/14 2:16 AM) (08/16/14 9:05 PM) Troponin-I 0.03 ng/mL 0.03 ng/mL [0.00-0.40 ng/mL] (08/17/14 2:16 AM) (08/16/14 9:05 PM) Immunizations No data available for this section Procedures No data available for this section Social History Social History Type Response Substance Abuse Use: None. Alcohol Never, Previous treatment: None. Smoking Status Never smoker; Previous treatment: None; Ready to change: No; Concerns about tobacco use in household: No; Exposure to Tobacco Smoke None; Cigarette Smoking Last 365 Days No; Reg Smoking Cessation Counseling No Assessment and Plan No data available for this section
--- OUTSIDE RECORDS SUMMARY | 2018-04-01 09:23 | XMS REPORT | Summary of Care ---
Author Author [facility] Organization [facility] Address Unknown Phone Unavailable Encounter GABRIEL Valencia(RJ) [id number] Date(s): 11/22/14 - 11/22/14 [facility] [address] [place] [address]- Discharge Diagnosis: Hypertension Discharge Disposition: Home Attending Physician: Audrey Bartholomew DO Vital Signs 1 2 3 Most recent to oldest [Reference Range]: 157.48 cm (11/22/14 11:41 AM) Height 1 2 3 Most recent to oldest [Reference Range]: 98.2 DegF (11/22/14 3:39 PM) 98.0 DegF (11/22/14 2:00 PM) 98.1 DegF (11/22/14 12:21 PM) Temperature Oral [96.4-99.1 DegF] 1 2 3 Most recent to oldest [Reference Range]: 171/69 mmHg *HI* (11/22/14 3:39 PM) 160/80 mmHg *HI* (11/22/14 2:00 PM) Blood Pressure [90-140/60-90 mmHg] 173 mmHg *HI* (11/22/14 12:21 PM) Systolic Blood Pressure [90-140 mmHg] 1 2 3 Most recent to oldest [Reference Range]: 73 mmHg (11/22/14 12:21 PM) Diastolic Blood Pressure [60-90 mmHg] 1 2 3 Most recent to oldest [Reference Range]: 18 BRMIN (11/22/14 3:39 PM) 18 BRMIN (11/22/14 2:00 PM) 18 BRMIN (11/22/14 12:21 PM) Respiratory Rate [14-20 BRMIN] 1 2 3 Most recent to oldest [Reference Range]: 51 bpm *LOW* (11/22/14 3:39 PM) 56 bpm *LOW* (11/22/14 2:00 PM) 48 bpm *LOW* (11/22/14 12:21 PM) Peripheral Pulse Rate [60-100 bpm] 1 2 3 Most recent to oldest [Reference Range]: 70.909 kg (11/22/14 11:41 AM) Weight 1 2 3 Most recent to oldest [Reference Range]: 28.59 m2 (11/22/14 11:41 AM) Body Mass Index Problem List Condition Effective Dates Status Health Status Informant Acute bronchitis1, 2 08/08/13 Resolved Allergic rhinitis3 05/02/13 Active Arthritis(Confirmed) Active Arthritis(Confirmed) Active Asthma4 01/28/13 Active Backache(Confirmed) Active Benign essential 07/09/12 Active hypertension5 Child examination Resolved finding6 Chronic back pain7 02/16/59 Active Chronic headache 05/02/13 Active disorder8 Evaluation finding9 Resolved Gastroesophageal 08/08/13 Active reflux dhuvezo54 Gynecologic Resolved comyqpmgeri98 HTN Active (hypertension)(Confi rmed) Hyperlipidemia(Confi Active rmed) Hyperlipidemia(Confi Active rmed) Hypertension(Confirm Active ed) Impaired fasting 01/16/13 Resolved bwlzwhyxo67 Impaired glucose 01/16/13 Active ajxssjjgr29 Influenza 10/27/13 Resolved nydlhrjjeuu57, 15 Dbornmdl78 01/28/13 Active Major depressive 03/24/14 Active sbtmyagm71 Migraine(Confirmed) Active Migraine(Confirmed) Active Mixed 12/28/12 Active cfncpcumrrenvt39 Dddwrqzkjwdyuk11 Active Xkcvumgtyd18 Active Physical examination Resolved zfelpseth17 Screening Resolved gnsbmqpmyme45 Sleep apnea23 10/27/13 Active 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) Tdrfiuq45 05/02/13 Active 1Data migrated from [employer] [...] Substance Reaction Severity Status NKDA Active Medications Tylenol 650 mg, Route: PO, Drug form: TAB, ONCE, Dosing Weight 70.909, kg, Priority: STA T, Start date: 11/22/14 15:14:00, Stop date: 11/22/14 15:14:00 Start Date: 11/22/14 Stop Date: 11/22/14 Status: Completed Results ELECTROLYTES Most recent to 1 oldest [Reference Range]: Sodium Lvl [135-145 136 mEq/L mEq/L] (11/22/14 1:10 PM) Potassium Lvl 3.5 mEq/L [3.5-5.1 mEq/L] (11/22/14 1:10 PM) Chloride Lvl [95-109 104 mEq/L mEq/L] (11/22/14 1:10 PM) CO2 [24-32 mEq/L] 28 mEq/L (11/22/14 1:10 PM) AGAP [10.0-20.0 7.5 mEq/L mEq/L] *LOW* (11/22/14 1:10 PM) CHEM PANEL Most recent to 1 oldest [Reference Range]: Creatinine Lvl 0.8 mg/dL [0.5-1.4 mg/dL] (11/22/14 1:10 PM) eGFR 74 mL/min/1.73m2 1 *NA* (11/22/14 1:10 PM) BUN [7-22 mg/dL] 13 mg/dL (11/22/14 1:10 PM) B/C Ratio [6-25] 16 (11/22/14 1:10 PM) Glucose Lvl [70-99 114 mg/dL mg/dL] *HI* (11/22/14 1:10 PM) Total Protein 7.1 g/dL [6.4-8.4 g/dL] (11/22/14 1:10 PM) Albumin Lvl [3.5-5.0 3.5 g/dL g/dL] (11/22/14 1:10 PM) Globulin [2.0-4.0 3.6 g/dL g/dL] (11/22/14 1:10 PM) A/G Ratio [0.7-1.6] 1.0 (11/22/14 1:10 PM) Calcium Lvl 8.8 mg/dL [8.5-10.5 mg/dL] (11/22/14 1:10 PM) ALT [0-65 unit/L] 22 unit/L (11/22/14 1:10 PM) AST [0-37 unit/L] 9 unit/L (11/22/14 1:10 PM) Alk Phos [39-136 95 unit/L unit/L] (11/22/14 1:10 PM) Bili Total [0.2-1.3 0.3 mg/dL mg/dL] (11/22/14 1:10 PM) 1Result Comment: The eGFR is calculated [...] 1 oldest [Reference Range]: Total CK [12-191 61 unit/L unit/L] (11/22/14 1:10 PM) CK MB [0.5-3.6 1.2 ng/mL ng/mL] (11/22/14 1:10 PM) CK MB Index 2.0 [0.0-2.5] (11/22/14 1:10 PM) Troponin-I 0.02 ng/mL [0.00-0.40 ng/mL] (11/22/14 1:10 PM) HEMATOLOGY Most recent to 1 oldest [Reference Range]: WBC [3.7-10.4 K/CMM] 12.6 K/CMM *HI* (11/22/14 1:10 PM) RBC [4.20-5.40 4.62 M/CMM M/CMM] (11/22/14 1:10 PM) Hgb [12.0-16.0 g/dL] 13.1 g/dL (11/22/14 1:10 PM) Hct [36.0-48.0 %] 40.9 % (11/22/14 1:10 PM) MCV [80.0-98.0 fL] 88.4 fL (11/22/14 1:10 PM) MCH [27.0-31.0 pg] 28.3 pg (11/22/14 1:10 PM) MCHC [32.0-36.0 32.0 g/dL g/dL] (11/22/14 1:10 PM) RDW [11.5-14.5 %] 13.5 % (11/22/14 1:10 PM) Platelet [133-450 310 K/CMM K/CMM] (11/22/14 1:10 PM) MPV [7.4-10.4 fL] 8.3 fL (11/22/14 1:10 PM) Segs [45.0-75.0 %] 82.6 % *HI* (11/22/14 1:10 PM) Lymphocytes 9.7 % [20.0-40.0 %] *LOW* (11/22/14 1:10 PM) Monocytes [2.0-12.0 6.9 % %] (11/22/14 1:10 PM) Eosinophils [0.0-4.0 0.1 % %] (11/22/14 1:10 PM) Basophils [0.0-1.0 0.7 % %] (11/22/14 1:10 PM) Segs-Bands # 10.4 K/CMM [1.5-8.1 K/CMM] *HI* (11/22/14 1:10 PM) Lymphocytes # 1.2 K/CMM [1.0-5.5 K/CMM] (11/22/14 1:10 PM) Monocytes # [0.0-0.8 0.9 K/CMM K/CMM] *HI* (11/22/14 1:10 PM) Basophils # [0.0-0.2 0.1 K/CMM K/CMM] (11/22/14 1:10 PM) Immunizations No data available for this section Procedures No data available for this section Social History Social History Type Response Substance Abuse Use: None. Alcohol Never Smoking Status Never smoker; Exposure to Tobacco Smoke None; Cigarette Smoking Last 365 Days No; Reg Smoking Cessation Counseling No Assessment and Plan No data available for this section
--- OUTSIDE RECORDS SUMMARY | 2018-04-01 09:23 | XMS REPORT | Summary of Care ---
Author Author [facility] Organization [facility] Address Unknown Phone Unavailable Encounter GABRIEL Valencia(RJ) [id number] Date(s): 11/09/14 - 11/09/14 [facility] [address] [place] [address]- [phone] Discharge Diagnosis: Bronchitis Discharge Diagnosis: URI, acute Discharge Disposition: Home Attending Physician: Eduardo Doyle MD Vital Signs Most recent to 1 2 oldest [Reference Range]: Height 162.56 cm (11/09/14 2:27 AM) Most recent to 1 2 oldest [Reference Range]: Temperature Oral 98.9 DegF 99 DegF [96.4-99.1 DegF] (11/09/14 6:45 AM) (11/09/14 2:27 AM) Most recent to 1 2 oldest [Reference Range]: Blood Pressure 186/84 mmHg 201/86 mmHg [90-140/60-90 mmHg] *HI* *HI* (11/09/14 6:45 AM) (11/09/14 2:27 AM) Most recent to 1 2 oldest [Reference Range]: Respiratory Rate 16 BRMIN 18 BRMIN [14-20 BRMIN] (11/09/14 6:45 AM) (11/09/14 2:27 AM) Most recent to 1 2 oldest [Reference Range]: Peripheral Pulse 62 bpm 64 bpm Rate [60-100 bpm] (11/09/14 6:45 AM) (11/09/14 2:27 AM) Most recent to 1 2 oldest [Reference Range]: Weight 72.727 kg (11/09/14 2:27 AM) Most recent to 1 2 oldest [Reference Range]: Body Mass Index 27.52 m2 (11/09/14 2:27 AM) Problem List Condition Effective Dates Status Health Status Informant Acute bronchitis1, 2 08/08/13 Resolved Allergic rhinitis3 05/02/13 Active Arthritis(Confirmed) Active Arthritis(Confirmed) Active Asthma4 01/28/13 Active Backache(Confirmed) Active Benign essential 07/09/12 Active hypertension5 Child examination Resolved finding6 Chronic back pain7 02/16/59 Active Chronic headache 05/02/13 Active disorder8 Evaluation finding9 Resolved Gastroesophageal 08/08/13 Active reflux gwsfmsu76 Gynecologic Resolved qoljibqsalv06 HTN Active (hypertension)(Confi rmed) Hyperlipidemia(Confi Active rmed) Hyperlipidemia(Confi Active rmed) Hypertension(Confirm Active ed) Impaired fasting 01/16/13 Resolved nuryahybp56 Impaired glucose 01/16/13 Active pkilrslpw91 Influenza 10/27/13 Resolved , 15 Tydhtqdd24 01/28/13 Active Major depressive 03/24/14 Active dfmkkekg34 Migraine(Confirmed) Active Migraine(Confirmed) Active Mixed 12/28/12 Active gxykmprjqfkhup29 Ecnnbxrkxwbykd99 Active Iphqmwdnks03 Active Physical examination Resolved budxvcwmu53 Screening Resolved ehdjlhnkjtd38 Sleep apnea23 10/27/13 Active 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) Nnelnao34 05/02/13 Active 1Data migrated from [employer] [...] Substance Reaction Severity Status NKDA Active Medications albuterol 90 mcg/inh inhalation aerosol 2 puff, INHALATION, QID, # 17 gm, 0 Refill(s) Start Date: 11/09/14 Status: Ordered albuterol-ipratropium 2.5-0.5 mg inhalation solution 3 mL, Route: NEB, Dosing Weight 72.727, kg, ONCE, STAT, Start date: 11/09/14 3:2 8:00, Stop date: 11/09/14 3:28:00 Start Date: 11/09/14 Stop Date: 11/09/14 Status: Completed Azithromycin 5 Day Dose Pack 250 mg oral tablet See Instructions, Take 2 tablets by mouth the first day then 1 tablet by mouth d ays 2-5., X 5 day, # 6 tab, 0 Refill(s) Special Instructions: Take 2 tablets by mouth the first day then 1 tablet by michel th days 2-5. Start Date: 11/09/14 Stop Date: 11/14/14 Status: Ordered Benadryl 12.5 mg, Route: IVP, ONCE, Dosing Weight 72.727, kg, Priority: STAT, Start date: 11/09/14 3:31:00, Stop date: 11/09/14 3:31:00 Start Date: 11/09/14 Stop Date: 11/09/14 Status: Completed chlorpheniramine-codeine 4 mg-10 mg oral tablet 1 tab, PO, Q6H, # 30 tab, 0 Refill(s) Start Date: 11/09/14 Stop Date: 11/12/14 Status: Ordered ketOROLAC 15 mg, Route: IVP, Drug form: INJ, ONCE, Dosing Weight 72.727, kg, Priority: STA T, Start date: 11/09/14 3:30:00, Stop date: 11/09/14 3:30:00 Start Date: 11/09/14 Stop Date: 11/09/14 Status: Completed lidocaine 4% inhalation solution 200 mg, 5 mL, Route: NEB, Drug Form: INJ, Dosing Weight 72.727, kg, ONCE, Start date: 11/09/14 3:28:00, Stop date: 11/09/14 3:28:00 Notes: (Same as: Xylocaine) Start Date: 11/09/14 Stop Date: 11/09/14 Status: Ordered morphine Sulfate 2 mg, Route: IVP, Drug form: INJ, ONCE, Dosing Weight 72.727, kg, Priority: STAT , Start date: 11/09/14 3:28:00, Stop date: 11/09/14 3:28:00 Start Date: 11/09/14 Stop Date: 11/09/14 Status: Completed Nasonex 50 mcg/inh nasal spray 2 spray, NASAL, Daily, PRN for allergy symptoms, # 17 gm, 0 Refill(s) Start Date: 11/09/14 Status: Ordered NS (Bolus) IV 500 mL, 500 ml/hr, Infuse Over: 1 hr, Route: IV, ONCE, Priority: STAT, Dosing We ight 72.727 kg, Start date: 11/09/14 3:28:00, Duration: 1 doses or times, Stop d ate: 11/09/14 3:28:00 Start Date: 11/09/14 Stop Date: 11/09/14 Status: Completed prednisoLONE 15 mg/5 mL oral syrup 15 mg=5 mL, PO, BID, X 7 day, # 70 mL, 0 Refill(s) Start Date: 11/09/14 Stop Date: 11/16/14 Status: Ordered Robitussin-DM 10 mL, Route: PO, Drug Form: SYRP, Dosing Weight 72.727, kg, Q4H, Start date: 4:00:00, Duration: 30 day, Stop date: 12/09/14 0:00:00 Notes: (dextromethorphan-guaifenesin 10-100mg/5ml 10 ml oral SOLN ud) (Same as: Robitussin DM) Start Date: 11/09/14 Stop Date: 11/09/14 Status: Discontinued Solu-MEDROL 125 mg, Route: IVP, ONCE, Dosing Weight 72.727, kg, Priority: STAT, Start date: 11/09/14 3:41:00, Stop date: 11/09/14 3:41:00 Start Date: 11/09/14 Stop Date: 11/09/14 Status: Completed Results ELECTROLYTES Most recent to 1 oldest [Reference Range]: Sodium Lvl [135-145 135 mEq/L mEq/L] (11/09/14 3:57 AM) Potassium Lvl 3.7 mEq/L [3.5-5.1 mEq/L] (11/09/14 3:57 AM) Chloride Lvl [95-109 102 mEq/L mEq/L] (11/09/14 3:57 AM) CO2 [24-32 mEq/L] 27 mEq/L (11/09/14 3:57 AM) AGAP [10.0-20.0 9.7 mEq/L mEq/L] *LOW* (11/09/14 3:57 AM) CHEM PANEL Most recent to 1 oldest [Reference Range]: Creatinine Lvl 0.6 mg/dL [0.5-1.4 mg/dL] (11/09/14 3:57 AM) eGFR 91 mL/min/1.73m2 1 *NA* (11/09/14 3:57 AM) BUN [7-22 mg/dL] 10 mg/dL (11/09/14 3:57 AM) B/C Ratio [6-25] 17 (11/09/14 3:57 AM) Glucose Lvl [70-99 115 mg/dL mg/dL] *HI* (11/09/14 3:57 AM) Total Protein 6.9 g/dL [6.4-8.4 g/dL] (11/09/14 3:57 AM) Albumin Lvl [3.5-5.0 3.4 g/dL g/dL] *LOW* (11/09/14 3:57 AM) Globulin [2.0-4.0 3.5 g/dL g/dL] (11/09/14 3:57 AM) A/G Ratio [0.7-1.6] 1.0 (11/09/14 3:57 AM) Calcium Lvl 8.3 mg/dL [8.5-10.5 mg/dL] *LOW* (11/09/14 3:57 AM) ALT [0-65 unit/L] 23 unit/L (11/09/14 3:57 AM) AST [0-37 unit/L] 16 unit/L (11/09/14 3:57 AM) Alk Phos [39-136 97 unit/L unit/L] (11/09/14 3:57 AM) Bili Total [0.2-1.3 0.1 mg/dL mg/dL] *LOW* (11/09/14 3:57 AM) 1Result Comment: The eGFR is calculated [...] Most recent to 1 oldest [Reference Range]: BNP [<=100 pg/mL] 142 pg/mL *HI* (11/09/14 3:57 AM) HEMATOLOGY Most recent to 1 oldest [Reference Range]: WBC [3.7-10.4 K/CMM] 11.9 K/CMM *HI* (11/09/14 3:57 AM) RBC [4.20-5.40 4.04 M/CMM M/CMM] *LOW* (11/09/14 3:57 AM) Hgb [12.0-16.0 g/dL] 11.8 g/dL *LOW* (11/09/14 3:57 AM) Hct [36.0-48.0 %] 35.8 % *LOW* (11/09/14 3:57 AM) MCV [80.0-98.0 fL] 88.7 fL (11/09/14 3:57 AM) MCH [27.0-31.0 pg] 29.2 pg (11/09/14 3:57 AM) MCHC [32.0-36.0 33.0 g/dL g/dL] (11/09/14 3:57 AM) RDW [11.5-14.5 %] 13.8 % (11/09/14 3:57 AM) Platelet [133-450 241 K/CMM K/CMM] (11/09/14 3:57 AM) MPV [7.4-10.4 fL] 8.2 fL (11/09/14 3:57 AM) Segs [45.0-75.0 %] 68.5 % (11/09/14 3:57 AM) Lymphocytes 17.7 % [20.0-40.0 %] *LOW* (11/09/14 3:57 AM) Monocytes [2.0-12.0 9.1 % %] (11/09/14 3:57 AM) Eosinophils [0.0-4.0 4.0 % %] (11/09/14 3:57 AM) Basophils [0.0-1.0 0.7 % %] (11/09/14 3:57 AM) Segs-Bands # 8.2 K/CMM [1.5-8.1 K/CMM] *HI* (11/09/14 3:57 AM) Lymphocytes # 2.1 K/CMM [1.0-5.5 K/CMM] (11/09/14 3:57 AM) Monocytes # [0.0-0.8 1.1 K/CMM K/CMM] *HI* (11/09/14 3:57 AM) Eosinophils # 0.5 K/CMM [0.0-0.5 K/CMM] (11/09/14 3:57 AM) Basophils # [0.0-0.2 0.1 K/CMM K/CMM] (11/09/14 3:57 AM) VIRAL - SEROLOGY Most recent to 1 oldest [Reference Range]: Influ A [Negative] Negative (11/09/14 3:57 AM) Influ B [Negative] Negative (11/09/14 3:57 AM) Immunizations No data available for this [...]
--- OUTSIDE RECORDS SUMMARY | 2018-04-01 09:23 | XMS REPORT | Summary of Care ---
Author Author [facility] Organization [facility] Address Unknown Phone Unavailable Encounter GABRIEL Valencia(RJ) [id number] Date(s): 03/04/15 - 03/04/15 [facility] [address] [place] [address]- [phone] Discharge Diagnosis: Acute URI Discharge Diagnosis: Chronic back pain Discharge Disposition: Home Attending Physician: Oracio Perry MD Vital Signs 1 2 3 Most recent to oldest [Reference Range]: 167.64 cm (03/04/15 4:32 PM) Height 98.0 DegF (03/04/15 8:25 PM) 97.8 DegF (03/04/15 4:32 PM) Temperature Oral [96.4-99.1 DegF] 147/64 mmHg *HI* (03/04/15 8:25 PM) 134/64 mmHg (03/04/15 7:53 PM) 163/87 mmHg *HI* (03/04/15 7:45 PM) Blood Pressure [90-140/60-90 mmHg] 23 BRMIN *HI* (03/04/15 8:25 PM) 15 BRMIN (03/04/15 7:53 PM) 17 BRMIN (03/04/15 7:45 PM) Respiratory Rate [14-20 BRMIN] 98 bpm (03/04/15 4:32 PM) Peripheral Pulse Rate [60-100 bpm] 77.273 kg (03/04/15 4:32 PM) Weight 27.5 m2 (03/04/15 4:32 PM) Body Mass Index Problem List Condition Effective Dates Status Health Status Informant Acute bronchitis1, 2 08/08/13 Resolved Allergic rhinitis3 05/02/13 Active Arthritis(Confirmed) Active Arthritis(Confirmed) Active Asthma4 01/28/13 Active Backache(Confirmed) Active Benign essential 07/09/12 Active hypertension5 Child examination Resolved finding6 Chronic back pain7 02/16/59 Active Chronic headache 05/02/13 Active disorder8 Evaluation finding9 Resolved Gastroesophageal 08/08/13 Active reflux Gynecologic Resolved nhvfyxefpub64 HTN Active (hypertension)(Confi rmed) Hyperlipidemia(Confi Active rmed) Hyperlipidemia(Confi Active rmed) Hypertension(Confirm Active ed) Impaired fasting 01/16/13 Resolved Impaired glucose 01/16/13 Active Influenza 10/27/13 Resolved vbmvscmvsmu83, 15 Peyamxtn18 01/28/13 Active Major depressive 03/24/14 Active Migraine(Confirmed) Active Migraine(Confirmed) Active Mixed 12/28/12 Active lnbeegskdcputa52 Uogoqfuphwvlrt92 Active Dcfitawwwd95 Active Physical examination Resolved lccgcuyku14 Screening Resolved lqvbrxokmem20 Sleep apnea23 10/27/13 Active 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) Vesvmii29 05/02/13 Active 1Data migrated from [employer] [...] [employer] on 07/15/14. 21[facility] from [facility] on 09/01/14. 22Data migrated from [employer] on 09/01/14. 23Data migrated from [employer] on 07/15/14. 24Data migrated from [employer] on 07/15/14. Allergies, Adverse Reactions, Alerts Substance Reaction Severity Status NKDA Active Medications acetaminophen-hydrocodone 325 mg-5 mg oral tablet 1 tab, Route: PO, Drug Form: TAB, Dosing Weight 77.273, kg, ONCE, STAT, Start da te: 03/04/15 19:22:00, Stop date: 03/04/15 19:22:00 Start Date: 03/04/15 Stop Date: 03/04/15 Status: Completed Ativan 1 mg, 0.5 mL, Route: IVP, Drug form: INJ, ONCE, Dosing Weight 77.273, kg, Priori ty: STAT, Start date: 03/04/15 16:49:00, Stop date: 03/04/15 16:49:00 Notes: (Same as: Ativan) Start Date: 03/04/15 Stop Date: 03/04/15 Status: Completed Augmentin 875 mg oral tablet 875 mg=1 tab, PO, Q12H, X 10 day, # 20 tab, 0 Refill(s) Start Date: 03/04/15 Stop Date: 03/14/15 Status: Ordered labetalol 20 mg, Route: IVP, Drug form: INJ, ONCE, Dosing Weight 77.273, kg, Start date: 0 03/04/15 19:22:00, Stop date: 03/04/15 19:22:00 Start Date: 03/04/15 Stop Date: 03/04/15 Status: Completed Saline Flush 0.9% 10 mL, Route: IVP, Drug Form: INJ, Dosing Weight 77.273, kg, PRN, PRN Line Flush , Start date: 03/04/15 16:49:00, Duration: 30 day, Stop date: 04/03/15 16:48:00 Notes: (Same as: BD Posiflush) Start Date: 03/04/15 Stop Date: 03/04/15 Status: Discontinued Tylenol with Codeine #3 oral tablet 1 tab, PO, Q6H, PRN Pain, X 5 day, # 20 tab, 0 Refill(s) Start Date: 03/04/15 Stop Date: 03/09/15 Status: Ordered Xopenex 0.63 mg/3 mL inhalation solution 0.63 mg=3 ml, NEB, TID, PRN as needed for wheezing, # 24 ea, 0 Refill(s) Start Date: 03/04/15 Status: Ordered Results ELECTROLYTES Most recent to 1 oldest [Reference Range]: Sodium Lvl [135-145 137 mEq/L mEq/L] (03/04/15 5:20 PM) Potassium Lvl 3.4 mEq/L [3.5-5.1 mEq/L] *LOW* (03/04/15 5:20 PM) Chloride Lvl [95-109 103 mEq/L mEq/L] (03/04/15 5:20 PM) CO2 [24-32 mEq/L] 25 mEq/L (03/04/15 5:20 PM) AGAP [10.0-20.0 12.4 mEq/L mEq/L] (03/04/15 5:20 PM) CHEM PANEL Most recent to 1 oldest [Reference Range]: Creatinine Lvl 0.68 mg/dL [0.50-1.40 mg/dL] (03/04/15 5:20 PM) eGFR 88 mL/min/1.73m2 1 *NA* (03/04/15 5:20 PM) BUN [7-22 mg/dL] 12 mg/dL (03/04/15 5:20 PM) B/C Ratio [6-25] 18 (03/04/15 5:20 PM) Glucose Lvl [70-99 125 mg/dL mg/dL] *HI* (03/04/15 5:20 PM) Total Protein 6.9 g/dL [6.4-8.4 g/dL] (03/04/15 5:20 PM) Albumin Lvl [3.5-5.0 3.4 g/dL g/dL] *LOW* (03/04/15 5:20 PM) Globulin [2.0-4.0 3.5 g/dL g/dL] (03/04/15 5:20 PM) A/G Ratio [0.7-1.6] 1.0 (03/04/15 5:20 PM) Calcium Lvl 8.5 mg/dL [8.5-10.5 mg/dL] (03/04/15 5:20 PM) ALT [0-65 unit/L] 22 unit/L (03/04/15 5:20 PM) AST [0-37 unit/L] 16 unit/L (03/04/15 5:20 PM) Alk Phos [39-136 76 unit/L unit/L] (03/04/15 5:20 PM) Bili Total [0.2-1.3 0.4 mg/dL mg/dL] (03/04/15 5:20 PM) 1Result Comment: The eGFR is calculated [...] 1 oldest [Reference Range]: Total CK [12-191 81 unit/L unit/L] (03/04/15 5:20 PM) CK MB [0.5-3.6 1.0 ng/mL ng/mL] (03/04/15 5:20 PM) CK MB Index 1.2 [0.0-2.5] (03/04/15 5:20 PM) Troponin-I 0.02 ng/mL [0.00-0.40 ng/mL] (03/04/15 5:20 PM) HEMATOLOGY Most recent to 1 oldest [Reference Range]: WBC [3.7-10.4 K/CMM] 8.7 K/CMM (03/04/15 5:20 PM) RBC [4.20-5.40 4.57 M/CMM M/CMM] (03/04/15 5:20 PM) Hgb [12.0-16.0 g/dL] 12.9 g/dL (03/04/15 5:20 PM) Hct [36.0-48.0 %] 39.5 % (03/04/15 5:20 PM) MCV [80.0-98.0 fL] 86.4 fL (03/04/15 5:20 PM) MCH [27.0-31.0 pg] 28.2 pg (03/04/15 5:20 PM) MCHC [32.0-36.0 32.6 g/dL g/dL] (03/04/15 5:20 PM) RDW [11.5-14.5 %] 13.3 % (03/04/15 5:20 PM) Platelet [133-450 282 K/CMM K/CMM] (03/04/15 5:20 PM) MPV [7.4-10.4 fL] 7.9 fL (03/04/15 5:20 PM) Segs [45.0-75.0 %] 77.6 % *HI* (03/04/15 5:20 PM) Lymphocytes 13.9 % [20.0-40.0 %] *LOW* (03/04/15 5:20 PM) Monocytes [2.0-12.0 6.8 % %] (03/04/15 5:20 PM) Eosinophils [0.0-4.0 1.1 % %] (03/04/15 5:20 PM) Basophils [0.0-1.0 0.6 % %] (03/04/15 5:20 PM) Segs-Bands # 6.7 K/CMM [1.5-8.1 K/CMM] (03/04/15 5:20 PM) Lymphocytes # 1.2 K/CMM [1.0-5.5 K/CMM] (03/04/15 5:20 PM) Monocytes # [0.0-0.8 0.6 K/CMM K/CMM] (03/04/15 5:20 PM) Eosinophils # 0.1 K/CMM [0.0-0.5 K/CMM] (03/04/15 5:20 PM) Basophils # [0.0-0.2 0.1 K/CMM K/CMM] (03/04/15 5:20 PM) D-Dimer 0.57 ug/mL FEU *NA* (03/04/15 5:20 PM) Immunizations No data available for this section Procedures No data available for this section Social History Social History Type Response Substance Abuse Use: None. Alcohol Never Smoking Status Never smoker; Exposure to Tobacco Smoke None; Cigarette Smoking Last 365 Days No; Reg Smoking Cessation Counseling No Assessment and Plan No data available for this section
--- OUTSIDE RECORDS SUMMARY | 2018-04-01 09:23 | XMS REPORT | Summary of Care ---
Author Author [facility] Organization [facility] Address Unknown Phone Unavailable Encounter HQ Erik(RJ) [id number] Date(s): 02/06/15 - 02/06/15 [facility] [address] [place] [address]- Discharge Diagnosis: Lumbago syndrome Discharge Disposition: Home Attending Physician: Eduardo Doyle MD Vital Signs Most recent to 1 2 oldest [Reference Range]: Height 154.94 cm (02/06/15 12:28 PM) Temperature Oral 97.8 DegF 97.8 DegF [96.4-99.1 DegF] (02/06/15 1:27 PM) (02/06/15 12:28 PM) Blood Pressure 123/74 mmHg 122/77 mmHg [90-140/60-90 mmHg] (02/06/15 1:27 PM) (02/06/15 12:28 PM) Respiratory Rate 16 BRMIN 20 BRMIN [14-20 BRMIN] (02/06/15 1:27 PM) (02/06/15 12:28 PM) Peripheral Pulse 86 bpm 100 bpm Rate [60-100 bpm] (02/06/15 1:27 PM) (02/06/15 12:28 PM) Weight 70.455 kg (02/06/15 12:28 PM) Body Mass Index 29.35 m2 (02/06/15 12:28 PM) Problem List Condition Effective Dates Status Health Status Informant Acute bronchitis1, 2 08/08/13 Resolved Allergic rhinitis3 05/02/13 Active Arthritis(Confirmed) Active Arthritis(Confirmed) Active Asthma4 01/28/13 Active Backache(Confirmed) Active Benign essential 07/09/12 Active hypertension5 Child examination Resolved finding6 Chronic back pain7 02/16/59 Active Chronic headache 05/02/13 Active disorder8 Evaluation finding9 Resolved Gastroesophageal 08/08/13 Active reflux densimr84 Gynecologic Resolved mxcegtussdu40 HTN Active (hypertension)(Confi rmed) Hyperlipidemia(Confi Active rmed) Hyperlipidemia(Confi Active rmed) Hypertension(Confirm Active ed) Impaired fasting 01/16/13 Resolved duhvxfozg51 Impaired glucose 01/16/13 Active yhqzklggu27 Influenza 10/27/13 Resolved ihfmrviacwj85, 15 Wayyzsui10 01/28/13 Active Major depressive 03/24/14 Active dvzauofu68 Migraine(Confirmed) Active Migraine(Confirmed) Active Mixed 12/28/12 Active nrltnohiyhfbxo50 Nytlehltkohwhv45 Active Mmgludpurn30 Active Physical examination Resolved eyngxdwme60 Screening Resolved inaugkgksct73 Sleep apnea23 10/27/13 Active 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) Toglfew64 05/02/13 Active 1Data migrated from [employer] [...] [employer] on 09/01/14. 23Data migrated from [employer] on 07/15/14. 24Data migrated from [employer] on 07/15/14. Allergies, Adverse Reactions, Alerts Substance Reaction Severity Status NKDA Active Medications Medrol Dosepak 4 mg oral tablet See Instructions, PO, Take by mouth as directed on label., X 6 day, # 1 Pack, 0 Refill(s) Start Date: 02/06/15 Stop Date: 02/12/15 Status: Ordered morphine Sulfate 6 mg, Route: IM, Drug form: INJ, ONCE, Dosing Weight 70.455, kg, Priority: STAT, Start date: 02/06/15 12:57:00, Stop date: 02/06/15 12:57:00 Start Date: 02/06/15 Stop Date: 02/06/15 Status: Completed Robaxin 500 mg oral tablet 500 mg=1 tab, PO, Q6H, PRN Spasms, X 7 day, # 28 tab, 0 Refill(s) Start Date: 02/06/15 Stop Date: 02/13/15 Status: Ordered Results No data available for this section [...]
--- OUTSIDE RECORDS SUMMARY | 2018-04-01 09:23 | XMS REPORT | Summary of Care ---
Author Author [facility] Organization [facility] Address Unknown Phone Unavailable Encounter HQ Erik(RJ) [phone] Date(s): 05/04/15 - 05/05/15 [facility] [address] [place] [address]- [phone] Discharge Disposition: Home Attending Physician: Lynsey Mijares MD Admitting Physician: Lynsey Mijares MD Vital Signs 1 2 3 Most recent to oldest [Reference Range]: 162.56 cm (05/04/15 8:32 PM) 162.56 cm (05/04/15 1:32 PM) Height 97.8 DegF (05/05/15 11:14 AM) 97.6 DegF (05/05/15 7:23 AM) 97.8 DegF (05/05/15 4:01 AM) Temperature Oral [96.4-99.1 DegF] 145/81 mmHg *HI* (05/05/15 11:14 AM) 154/72 mmHg *HI* (05/05/15 7:23 AM) 162/84 mmHg *HI* (05/05/15 4:01 AM) Blood Pressure [90-140/60-90 mmHg] 18 BRMIN (05/05/15 11:14 AM) 18 BRMIN (05/05/15 7:23 AM) 18 BRMIN (05/05/15 4:01 AM) Respiratory Rate [14-20 BRMIN] 86 bpm (05/05/15 11:14 AM) 74 bpm (05/05/15 7:23 AM) 70 bpm (05/05/15 4:01 AM) Peripheral Pulse Rate [60-100 bpm] 63.636 kg (05/04/15 8:32 PM) 63.636 kg (05/04/15 1:32 PM) Weight 24.08 m2 (05/04/15 8:32 PM) 24.08 m2 (05/04/15 1:32 PM) Body Mass Index Problem List Condition Effective Dates Status Health Status Informant Acute bronchitis1, 2 08/08/13 Resolved Allergic rhinitis3 05/02/13 Active Arthritis(Confirmed) Active Arthritis(Confirmed) Active Asthma4 01/28/13 Active Backache(Confirmed) Active Benign essential 07/09/12 Active hypertension5 Child examination Resolved finding6 Chronic back pain7 02/16/59 Active Chronic headache 05/02/13 Active disorder8 Evaluation finding9 Resolved Gastroesophageal 08/08/13 Active reflux Gynecologic Resolved ysfvvsvljgo24 HTN Active (hypertension)(Confi rmed) Hyperlipidemia(Confi Active rmed) Hyperlipidemia(Confi Active rmed) Hypertension(Confirm Active ed) Impaired fasting 01/16/13 Resolved lcvhlwevs21 Impaired glucose 01/16/13 Active dnizosqeh71 Influenza 10/27/13 Resolved pdqlrleinrf90, 15 Vlesqcrm92 01/28/13 Active Major depressive 03/24/14 Active Migraine(Confirmed) Active Migraine(Confirmed) Active Mixed 12/28/12 Active ekougsfyznxwmo72 Aepdrvoudhydqc18 Active Gmufxvyxej58 Active Physical examination Resolved mrwhvmiaw19 Screening Resolved vsgaouepnfp75 Sleep apnea23 10/27/13 Active 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 Originally documented as NKA. Medications acetaminophen 650 mg, 2 tab, Route: PO, Drug form: TAB, Q4H, Dosing Weight 63.636, kg, PRN Taylor n 1-3/Temp > 100.4 F, Start date: 05/04/15 17:22:00, Duration: 30 day, Stop date: 06/03/15 17:21:00 Notes: Do not exceed 4 gm/day. (Same as: Tylenol) Start Date: 05/04/15 Stop Date: 05/05/15 Status: Discontinued acetaminophen-codeine #3 1 tab, PO, Q6H, PRN Pain Score 1-5, 0 Refill(s) Start Date: 05/04/15 Status: Ordered aspirin 81 mg tablet, enteric coated 81 mg, 1 tab, Route: PO, Drug form: ECTAB, Daily, Dosing Weight 63.636, kg, Star t date: 05/06/15 9:00:00, Duration: 30 day, Stop date: 06/04/15 9:00:00 Notes: Do not crush or chew.(Same As: Ecotrin) Start Date: 05/06/15 Stop Date: 05/05/15 Status: Canceled Jen 5 mg-20 mg oral tablet 1 tab, Route: PO, Drug Form: TAB, Dosing Weight 63.636, kg, Daily, Start date: 0 05/06/15 9:00:00, Duration: 30 day, Stop date: 06/04/15 9:00:00 Start Date: 05/06/15 Stop Date: 05/05/15 Status: Deleted Jen 5 mg-20 mg oral tablet 1 tab, PO, Daily, 0 Refill(s) Start Date: 05/04/15 Status: Ordered Benicar 20 mg, 1 tab, Route: PO, Drug form: TAB, Daily, Start date: 05/06/15 9:00:00, Du ration: 30 day, Stop date: 06/04/15 9:00:00 Start Date: 05/06/15 Stop Date: 05/05/15 Status: Canceled docusate 100 mg, 1 cap, Route: PO, Drug form: CAP, BID, Dosing Weight 63.636, kg, PRN Con stipation, Start date: 05/04/15 17:22:00, Duration: 30 day, Stop date: 06/03/15 17:21:00 Notes: (Same as: Colace) (Do Not Crush) Start Date: 05/04/15 Stop Date: 05/05/15 Status: Discontinued ibuprofen 800 mg, PO, TID, PRN Pain Score 1-5, 0 Refill(s) Start Date: 05/04/15 Status: Ordered ibuprofen 800 mg, 1 tab, Route: PO, Drug form: TAB, TID, Dosing Weight 63.636, kg, PRN Taylor n Score 1-5, Start date: 05/05/15 11:50:00, Duration: 30 day, Stop date: 6 11:49:00 Notes: (Same as: Motrin)"Do Not Crush" Take with food. Start Date: 05/05/15 Stop Date: 05/05/15 Status: Discontinued morphine Sulfate 2 mg, 1 mL, Route: IVP, Drug form: INJ, ONCE, Dosing Weight 63.636, kg, Priority : STAT, Start date: 05/04/15 14:17:00, Stop date: 05/04/15 14:17:00 Notes: (Same as:MORPhine Sulfate) Start Date: 05/04/15 Stop Date: 05/04/15 Status: Completed morphine Sulfate 2 mg, 1 mL, Route: IVP, Drug form: INJ, Q4H, Dosing Weight 63.636, kg, PRN Pain Score 7-10, Start date: 05/04/15 17:22:00, Duration: 30 day, Stop date: 06/03/15 17:21:00 Notes: (Same as:MORPhine Sulfate) Start Date: 05/04/15 Stop Date: 05/05/15 Status: Discontinued Bryant 5/325 oral tablet 1 tab, Route: PO, Drug Form: TAB, Dosing Weight 63.636, kg, ONCE, STAT, Start da te: 05/04/15 15:31:00, Stop date: 05/04/15 15:31:00 Notes: (Same as: Bryant 325/5) Do not exceed 4gm/day of acetaminophen. Start Date: 05/04/15 Stop Date: 05/04/15 Status: Completed Norvasc 5 mg, 1 tab, Route: PO, Drug form: TAB, Daily, Start date: 05/06/15 9:00:00, Dur ation: 30 day, Stop date: 06/04/15 9:00:00 Notes: (Same as: Norvasc) Start Date: 05/06/15 Stop Date: 05/05/15 Status: Canceled omeprazole 40 mg, Route: PO, Daily, Dosing Weight 63.636, kg, Start date: 05/06/15 9:00:00, Duration: 30 day, Stop date: 06/04/15 9:00:00 Start Date: 05/06/15 Stop Date: 05/05/15 Status: Deleted omeprazole 40 mg, PO, Daily, 0 Refill(s) Start Date: 05/04/15 Stop Date: 05/05/15 Status: Discontinued omeprazole 40 mg oral delayed release capsule 40 mg=1 cap, PO, BID, take 1 tab twice daily x 14 days, then once daily before m eals, # 60 tab, 0 Refill(s) Start Date: 05/05/15 Status: Ordered ondansetron 4 mg, 2 mL, Route: IVP, Drug form: INJ, ONCE, Dosing Weight 63.636, kg, Priority : STAT, Start date: 05/04/15 14:17:00, Stop date: 05/04/15 14:17:00 Notes: (Same as: Rosy) MEDICATION WASTE Product Size: 4 mgProduct Was guillaume: ___ mg Start Date: 05/04/15 Stop Date: 05/04/15 Status: Completed ondansetron 4 mg, 2 mL, Route: IVP, Drug form: INJ, ONCE, Dosing Weight 63.636, kg, Priority : STAT, Start date: 05/04/15 13:38:00, Stop date: 05/04/15 13:38:00 Notes: (Same as: Rosy) MEDICATION WASTE Product Size: 4 mgProduct Was guillaume: ___ mg Start Date: 05/04/15 Stop Date: 05/04/15 Status: Discontinued ondansetron 4 mg, 2 mL, Route: IVP, Drug form: INJ, Q6H, Dosing Weight 63.636, kg, PRN Nause a & Vomiting, Start date: 05/04/15 17:22:00, Duration: 30 day, Stop date: 06/03/15 17:21:00 Notes: (Same as: Rosy) MEDICATION WASTE Product Size: 4 mgProduct Was guillaume: ___ mg Start Date: 05/04/15 Stop Date: 05/05/15 Status: Discontinued Protonix 40 mg, 1 tab, Route: PO, Drug form: ECTAB, Before Dinner, Start date: 05/05/15 1 6:30:00, Duration: 30 day, Stop date: 06/03/15 16:30:00 Notes: Tablet should not be chewed or crushed.(Same as: Protonix) Start Date: 05/05/15 Stop Date: 05/05/15 Status: Canceled Saline Flush 0.9% 10 mL, Route: IVP, Drug Form: INJ, Dosing Weight 63.636, kg, PRN, PRN Line Flush , Start date: 05/04/15 14:17:00, Duration: 30 day, Stop date: 06/03/15 14:16:00 Notes: (Same as: BD Posiflush) Start Date: 05/04/15 Stop Date: 05/04/15 Status: Discontinued simvastatin 20 mg, 1 tab, Route: PO, Drug form: TAB, Bedtime, Dosing Weight 63.636, kg, Star t date: 05/05/15 21:00:00, Duration: 30 day, Stop date: 06/03/15 21:00:00 Notes: (Same as: Zocor) Start Date: 05/05/15 Stop Date: 05/05/15 Status: Canceled simvastatin 80 mg, PO, Bedtime, 0 Refill(s) Start Date: 05/04/15 Status: Ordered Sodium Chloride 0.9% (Bolus) IV 1,000 mL, 1,000 ml/hr, Infuse Over: 1 hr, Route: IV, 1,000, Drug form: INJ, ONCE , Priority: STAT, Dosing Weight 63.636 kg, Start date: 05/04/15 14:17:00, Durati on: 1 doses or times, Stop date: 05/04/15 14:17:00 Start Date: 05/04/15 Stop Date: 05/04/15 Status: Completed Sodium Chloride 0.9% (Bolus) IV 500 mL, 500 ml/hr, Infuse Over: 1 hr, Route: IV, 500, Drug form: INJ, ONCE, Prio rity: STAT, Dosing Weight 63.636 kg, Start date: 05/04/15 13:38:00, Duration: 1 doses or times, Stop date: 05/04/15 13:38:00 Start Date: 05/04/15 Stop Date: 05/04/15 Status: Discontinued Sodium Chloride 0.9% IV 1,000 mL 1,000 mL, Rate: 75 ml/hr, Infuse over: 13.3 hr, Route: IV, Dosing Weight 63.636 kg, Total Volume: 1,000, Start date: 05/04/15 17:22:00, Duration: 30 day, Stop d ate: 06/03/15 17:21:00 Start Date: 05/04/15 Stop Date: 05/05/15 Status: Discontinued temazepam 15 mg, 1 cap, Route: PO, Drug form: CAP, Bedtime, Dosing Weight 63.636, kg, Star t date: 05/04/15 23:41:00, Duration: 30 day, Stop date: 06/03/15 21:00:00 Notes: (Same As: Restoril) Start Date: 05/04/15 Stop Date: 05/05/15 Status: Discontinued temazepam 15 mg oral capsule 15 mg=1 cap, PO, Bedtime, PRN as needed for sleep, 0 Refill(s) Start Date: 05/04/15 Stop Date: 05/05/15 Status: Discontinued temazepam 15 mg oral capsule 15 mg=1 cap, PO, Bedtime, PRN Sleep, X 30 day, # 30 cap, 0 Refill(s) Start Date: 05/05/15 Stop Date: 06/04/15 Status: Ordered Unknown Home Medication See Instructions, accuflora 2 caps po bid, Refill(s) 0 Start Date: 05/04/15 Status: Ordered Unknown Home Medication See Instructions, BUT/ACETAMINPHEN/CAFF 1 cap po q6h prn pain, Refill(s) 0 Start Date: 05/04/15 Status: Ordered Unknown Home Medication See Instructions, K 99mg po daily, Refill(s) 0 Start Date: 05/04/15 Status: Ordered Results ELECTROLYTES 1 2 3 Most recent to oldest [Reference Range]: 140 mEq/L (05/05/15 4:43 AM) 135 mEq/L (05/04/15 2:42 PM) Sodium Lvl [135-145 mEq/L] 3.7 mEq/L (05/05/15 4:43 AM) 3.6 mEq/L (05/04/15 2:42 PM) Potassium Lvl [3.5-5.1 mEq/L] 105 mEq/L (05/05/15 4:43 AM) 100 mEq/L (05/04/15 2:42 PM) Chloride Lvl [95-109 mEq/L] 28 mEq/L (05/05/15 4:43 AM) 28 mEq/L (05/04/15 2:42 PM) CO2 [24-32 mEq/L] 10.7 mEq/L (05/05/15 4:43 AM) 10.6 mEq/L (05/04/15 2:42 PM) AGAP [10.0-20.0 mEq/L] CHEM PANEL 1 2 3 Most recent to oldest [Reference Range]: 0.44 mg/dL *LOW* (05/05/15 4:43 AM) 0.40 mg/dL *LOW* (05/04/15 2:42 PM) Creatinine Lvl [0.50-1.40 mg/dL] 101 mL/min/1.73m2 1 *NA* (05/05/15 4:43 AM) 104 mL/min/1.73m2 2 *NA* (05/04/15 2:42 PM) eGFR 8 mg/dL (05/05/15 4:43 AM) 8 mg/dL (05/04/15 2:42 PM) BUN [7-22 mg/dL] 20 (05/04/15 2:42 PM) B/C Ratio [6-25] 91 mg/dL (05/05/15 4:43 AM) 107 mg/dL *HI* (05/04/15 2:42 PM) Glucose Lvl [70-99 mg/dL] 7.1 g/dL (05/04/15 2:42 PM) Total Protein [6.4-8.4 g/dL] 3.7 g/dL (05/04/15 2:42 PM) Albumin Lvl [3.5-5.0 g/dL] 3.4 g/dL (05/04/15 2:42 PM) Globulin [2.0-4.0 g/dL] 1.1 (05/04/15 2:42 PM) A/G Ratio [0.7-1.6] 8.4 mg/dL *LOW* (05/05/15 4:43 AM) 9.0 mg/dL (05/04/15 2:42 PM) Calcium Lvl [8.5-10.5 mg/dL] 20 unit/L (05/04/15 2:42 PM) ALT [0-65 unit/L] 11 unit/L (05/04/15 2:42 PM) AST [0-37 unit/L] 90 unit/L (05/04/15 2:42 PM) Alk Phos [39-136 unit/L] 0.2 mg/dL (05/04/15 2:42 PM) Bili Total [0.2-1.3 mg/dL] 1Result Comment: The eGFR is calculated using [...] be mul tiplied by the estimated BMI. 2Result Comment: The eGFR is calculated using the [...] tiplied by the estimated BMI. CARDIAC ENZYMES 1 2 3 Most recent to oldest [Reference Range]: 30 unit/L (05/05/15 4:43 AM) 36 unit/L (05/04/15 10:09 PM) 40 unit/L (05/04/15 2:42 PM) Total CK [12-191 unit/L] 1.3 ng/mL (05/05/15 4:43 AM) 0.7 ng/mL (05/04/15 10:09 PM) 1.2 ng/mL (05/04/15 2:42 PM) CK MB [0.5-3.6 ng/mL] 4.3 *HI* (05/05/15 4:43 AM) 1.9 (05/04/15 10:09 PM) 3.0 *HI* (05/04/15 2:42 PM) CK MB Index [0.0-2.5] 0.03 ng/mL (05/05/15 4:43 AM) 0.02 ng/mL (05/04/15 10:09 PM) 0.02 ng/mL (05/04/15 2:42 PM) Troponin-I [0.00-0.40 ng/mL] 25 pg/mL (05/04/15 2:42 PM) BNP [<=100 pg/mL] URINE AND STOOL 1 2 3 Most recent to oldest [Reference Range]: Clear (05/04/15 2:42 PM) UA Turbidity [Clear] Ltyellow *NA* (05/04/15 2:42 PM) UA Color 8.0 (05/04/15 2:42 PM) UA pH [5.0-8.0] 1.006 (05/04/15 2:42 PM) UA Spec Grav [<=1.030] Negative mg/dL *NA* (05/04/15 2:42 PM) UA Glucose [Negative mg/dL] Negative (05/04/15 2:42 PM) UA Blood [Negative] Negative mg/dL *NA* (05/04/15 2:42 PM) UA Ketones [Negative mg/dL] Negative mg/dL (05/04/15 2:42 PM) UA Protein [Negative mg/dL] <=1.0 mg/dL *NA* (05/04/15 2:42 PM) UA Urobilinogen [0.1-1.0 mg/dL] Negative *NA* (05/04/15 2:42 PM) UA Bili [Negative] Trace *ABN* (05/04/15 2:42 PM) UA Leuk Est [Negative] Negative (05/04/15 2:42 PM) UA Nitrite [Negative] 3 /HPF (05/04/15 2:42 PM) UA WBC [0-5 /HPF] 2 /HPF (05/04/15 2:42 PM) UA RBC [0-2 /HPF] Occasional /LPF *NA* (05/04/15 2:42 PM) UA Sq Epi [Few /LPF] HEMATOLOGY 1 2 3 Most recent to oldest [Reference Range]: 8.5 K/CMM (05/05/15 4:43 AM) 9.2 K/CMM (05/04/15 2:42 PM) WBC [3.7-10.4 K/CMM] 4.39 M/CMM (05/05/15 4:43 AM) 4.60 M/CMM (05/04/15 2:42 PM) RBC [4.20-5.40 M/CMM] 12.7 g/dL (05/05/15 4:43 AM) 13.2 g/dL (05/04/15 2:42 PM) Hgb [12.0-16.0 g/dL] 38.0 % (05/05/15 4:43 AM) 39.8 % (05/04/15 2:42 PM) Hct [36.0-48.0 %] 86.5 fL (05/05/15 4:43 AM) 86.5 fL (05/04/15 2:42 PM) MCV [80.0-98.0 fL] 28.9 pg (05/05/15 4:43 AM) 28.6 pg (05/04/15 2:42 PM) MCH [27.0-31.0 pg] 33.4 g/dL (05/05/15 4:43 AM) 33.1 g/dL (05/04/15 2:42 PM) MCHC [32.0-36.0 g/dL] 14.0 % (05/05/15 4:43 AM) 14.1 % (05/04/15 2:42 PM) RDW [11.5-14.5 %] 344 K/CMM (05/05/15 4:43 AM) 366 K/CMM (05/04/15 2:42 PM) Platelet [133-450 K/CMM] 7.4 fL (05/05/15 4:43 AM) 7.6 fL (05/04/15 2:42 PM) MPV [7.4-10.4 fL] 51.9 % (05/05/15 4:43 AM) 69.0 % (05/04/15 2:42 PM) Segs [45.0-75.0 %] 33.6 % (05/05/15 4:43 AM) 19.3 % *LOW* (05/04/15 2:42 PM) Lymphocytes [20.0-40.0 %] 9.7 % (05/05/15 4:43 AM) 8.8 % (05/04/15 2:42 PM) Monocytes [2.0-12.0 %] 3.6 % (3/19/16 4:43 AM) 2.1 % (05/04/15 2:42 PM) Eosinophils [0.0-4.0 %] 1.2 % *HI* (05/05/15 4:43 AM) 0.8 % (05/04/15 2:42 PM) Basophils [0.0-1.0 %] 4.4 K/CMM (05/05/15 4:43 AM) 6.3 K/CMM (05/04/15 2:42 PM) Segs-Bands # [1.5-8.1 K/CMM] 2.8 K/CMM (05/05/15 4:43 AM) 1.8 K/CMM (05/04/15 2:42 PM) Lymphocytes # [1.0-5.5 K/CMM] 0.8 K/CMM (05/05/15 4:43 AM) 0.8 K/CMM (05/04/15 2:42 PM) Monocytes # [0.0-0.8 K/CMM] 0.3 K/CMM (05/05/15 4:43 AM) 0.2 K/CMM (05/04/15 2:42 PM) Eosinophils # [0.0-0.5 K/CMM] 0.1 K/CMM (05/05/15 4:43 AM) 0.1 K/CMM (05/04/15 2:42 PM) Basophils # [0.0-0.2 K/CMM] 13.8 seconds (05/04/15 2:42 PM) PT [12.0-14.7 seconds] 1.03 (05/04/15 2:42 PM) INR [0.85-1.17] 27.6 seconds (05/04/15 2:42 PM) PTT [22.9-35.8 seconds] Immunizations Vaccine Date Refusal Reason influenza virus vaccine, inactivated1 10/27/13 influenza virus vaccine, inactivated2 10/27/13 pneumococcal 23-valent vaccine3 07/25/11 1Result Comment: done high dose. Migrated from OBS ; Data migrated from [facility] on 08/30/2014. 2Result Comment: fluzone high dose [[id number]]. Migrated from OBS ; Data migrated from [employer] on 08/30/2014. 3Result Comment: historical. Migrated from OBS ; Data migrated from [employer] on 08/30/2014. Procedures Procedure Date Related Diagnosis Body Site Excision of vein Social History Social History Type Response Substance Abuse Use: None. Alcohol Never Smoking Status Never smoker; Exposure to Tobacco Smoke None; Cigarette Smoking Last 365 Days No; Reg Smoking Cessation Counseling No Assessment and Plan No data available for this section
--- OUTSIDE RECORDS SUMMARY | 2018-04-01 09:23 | XMS REPORT | Summary of Care ---
Author Author [facility] Organization [facility] Address Unknown Phone Unavailable Encounter HQ Erik(RJ) [id number] Date(s): 10/19/14 - 10/19/14 [facility] [address] [place] [address]- Discharge Diagnosis: Acute back pain Discharge Disposition: Home Attending Physician: Lang Barton MD Vital Signs 1 2 3 Most recent to oldest [Reference Range]: 154.94 cm (10/19/14 7:13 AM) Height 1 2 3 Most recent to oldest [Reference Range]: 98.4 DegF (10/19/14 10:12 AM) 98.7 DegF (10/19/14 7:13 AM) Temperature Oral [96.4-99.1 DegF] 1 2 3 Most recent to oldest [Reference Range]: 137/66 mmHg (10/19/14 10:12 AM) 166/72 mmHg *HI* (10/19/14 8:55 AM) 183/88 mmHg *HI* (10/19/14 7:46 AM) Blood Pressure [90-140/60-90 mmHg] 1 2 3 Most recent to oldest [Reference Range]: 18 BRMIN (10/19/14 10:12 AM) 18 BRMIN (10/19/14 7:13 AM) Respiratory Rate [14-20 BRMIN] 1 2 3 Most recent to oldest [Reference Range]: 66 bpm (10/19/14 7:13 AM) Peripheral Pulse Rate [60-100 bpm] 1 2 3 Most recent to oldest [Reference Range]: 72.727 kg (10/19/14 7:13 AM) Weight 1 2 3 Most recent to oldest [Reference Range]: 30.29 m2 (10/19/14 7:13 AM) Body Mass Index Problem List Condition Effective Dates Status Health Status Informant Acute bronchitis1, 2 08/08/13 Resolved Allergic rhinitis3 05/02/13 Active Arthritis(Confirmed) Active Arthritis(Confirmed) Resolved Asthma4 01/28/13 Active Backache(Confirmed) Active Benign essential 07/09/12 Active hypertension5 Child examination Resolved finding6 Chronic back pain7 02/16/59 Active Chronic headache 05/02/13 Active disorder8 Evaluation finding9 Resolved Gastroesophageal 08/08/13 Active reflux dmobvfh31 Gynecologic Resolved wpcnmkmxirs48 HTN Active (hypertension)(Confi rmed) Hyperlipidemia(Confi Resolved rmed) Hyperlipidemia(Confi Active rmed) Hypertension(Confirm Resolved ed) Impaired fasting 01/16/13 Resolved avoaawkra58 Impaired glucose 01/16/13 Active fqzfktqwu56 Influenza 10/27/13 Resolved ctjsgqaydmb79, 15 Ggshgrne71 01/28/13 Active Major depressive 03/24/14 Active uiotaong25 Migraine(Confirmed) Active Migraine(Confirmed) Resolved Mixed 12/28/12 Active ynzktwlzmjqvxe91 Acltnflakuvism03 Active Vlupgyedzs17 Active Physical examination Resolved qycpfnwpa74 Screening Resolved kxfmiwjspdi77 Sleep apnea23 10/27/13 Active Spinal Active stenosis(Confirmed) Spinal Resolved stenosis(Confirmed) Nkvtpjk34 05/02/13 Active 1Data migrated from [employer] [...] Substance Reaction Severity Status NKDA Active Medications morphine Sulfate 4 mg, Route: IVP, ONCE, Dosing Weight 72.727, kg, Priority: STAT, Start date: 7:55:00, Stop date: 10/19/14 7:55:00 Start Date: 10/19/14 Stop Date: 10/19/14 Status: Completed ondansetron 4 mg, Route: IVP, ONCE, Dosing Weight 72.727, kg, Priority: STAT, Start date: 7:55:00, Stop date: 10/19/14 7:55:00 Start Date: 10/19/14 Stop Date: 10/19/14 Status: Completed Saline Flush 0.9% 10 mL, Route: IVP, Drug Form: INJ, Dosing Weight 72.727, kg, PRN, PRN Line Flush , Start date: 10/19/14 7:55:00, Duration: 30 day, Stop date: 11/18/14 7:54:00 Notes: (Same as: BD Posiflush) Start Date: 10/19/14 Stop Date: 10/19/14 Status: Discontinued tramadol 50 mg oral tablet 50 mg=1 tab, PO, Q6H, PRN Pain, X 10 day, # 40 tab, 0 Refill(s) Start Date: 10/19/14 Stop Date: 10/29/14 Status: Ordered Results ELECTROLYTES Most recent to 1 oldest [Reference Range]: Sodium Lvl [135-145 135 mEq/L mEq/L] (10/19/14 8:10 AM) Potassium Lvl 4.2 mEq/L [3.5-5.1 mEq/L] (10/19/14 8:10 AM) Chloride Lvl [95-109 100 mEq/L mEq/L] (10/19/14 8:10 AM) CO2 [24-32 mEq/L] 29 mEq/L (10/19/14 8:10 AM) AGAP [10.0-20.0 10.2 mEq/L mEq/L] (10/19/14 8:10 AM) CHEM PANEL Most recent to 1 oldest [Reference Range]: Creatinine Lvl 0.6 mg/dL [0.5-1.4 mg/dL] (10/19/14 8:10 AM) eGFR 91 mL/min/1.73m2 1 *NA* (10/19/14 8:10 AM) BUN [7-22 mg/dL] 10 mg/dL (10/19/14 8:10 AM) B/C Ratio [6-25] 17 (10/19/14 8:10 AM) Glucose Lvl [70-99 109 mg/dL mg/dL] *HI* (10/19/14 8:10 AM) Total Protein 7.3 g/dL [6.4-8.4 g/dL] (10/19/14 8:10 AM) Albumin Lvl [3.5-5.0 3.6 g/dL g/dL] (10/19/14 8:10 AM) Globulin [2.0-4.0 3.7 g/dL g/dL] (10/19/14 8:10 AM) A/G Ratio [0.7-1.6] 1.0 (10/19/14 8:10 AM) Calcium Lvl 8.8 mg/dL [8.5-10.5 mg/dL] (10/19/14 8:10 AM) ALT [0-65 unit/L] 25 unit/L (10/19/14 8:10 AM) AST [0-37 unit/L] 16 unit/L (10/19/14 8:10 AM) Alk Phos [39-136 101 unit/L unit/L] (10/19/14 8:10 AM) Bili Total [0.2-1.3 0.2 mg/dL mg/dL] (10/19/14 8:10 AM) Amylase Lvl [25-115 50 unit/L unit/L] (10/19/14 8:10 AM) Lipase Lvl [73-393 101 unit/L unit/L] (10/19/14 8:10 AM) 1Result Comment: The eGFR is calculated [...] be mul tiplied by the estimated BMI. URINE AND STOOL Most recent to 1 oldest [Reference Range]: UA Turbidity [Clear] Clear (10/19/14 8:10 AM) UA Color [Yellow] Yellow *NA* (10/19/14 8:10 AM) UA pH [5.0-8.0] 6.0 (10/19/14 8:10 AM) UA Spec Grav 1.016 [<=1.030] (10/19/14 8:10 AM) UA Glucose [Negative Negative mg/dL mg/dL] *NA* (10/19/14 8:10 AM) UA Blood [Negative] Negative (10/19/14 8:10 AM) UA Ketones [Negative Negative mg/dL mg/dL] *NA* (10/19/14 8:10 AM) UA Protein [Negative Negative mg/dL mg/dL] (10/19/14 8:10 AM) UA Urobilinogen <=1.0 mg/dL [0.1-1.0 mg/dL] *NA* (10/19/14 8:10 AM) UA Bili [Negative] Negative *NA* (10/19/14 8:10 AM) UA Leuk Est Trace [Negative] *ABN* (10/19/14 8:10 AM) UA Nitrite Negative [Negative] (10/19/14 8:10 AM) UA WBC [0-5 /HPF] 1 /HPF (10/19/14 8:10 AM) UA RBC [0-2 /HPF] 2 /HPF (10/19/14 8:10 AM) UA Sq Epi [Few /LPF] Occasional /LPF *NA* (10/19/14 8:10 AM) HEMATOLOGY Most recent to 1 oldest [Reference Range]: WBC [3.7-10.4 K/CMM] 9.8 K/CMM (10/19/14 8:10 AM) RBC [4.20-5.40 4.49 M/CMM M/CMM] (10/19/14 8:10 AM) Hgb [12.0-16.0 g/dL] 13.2 g/dL (10/19/14 8:10 AM) Hct [36.0-48.0 %] 39.6 % (10/19/14 8:10 AM) MCV [80.0-98.0 fL] 88.1 fL (10/19/14 8:10 AM) MCH [27.0-31.0 pg] 29.4 pg (10/19/14 8:10 AM) MCHC [32.0-36.0 33.4 g/dL g/dL] (10/19/14 8:10 AM) RDW [11.5-14.5 %] 14.1 % (10/19/14 8:10 AM) Platelet [133-450 291 K/CMM K/CMM] (10/19/14 8:10 AM) MPV [7.4-10.4 fL] 7.7 fL (10/19/14 8:10 AM) Segs [45.0-75.0 %] 63.9 % (10/19/14 8:10 AM) Lymphocytes 21.0 % [20.0-40.0 %] (10/19/14 8:10 AM) Monocytes [2.0-12.0 8.4 % %] (10/19/14 8:10 AM) Eosinophils [0.0-4.0 5.9 % %] *HI* (10/19/14 8:10 AM) Basophils [0.0-1.0 0.8 % %] (10/19/14 8:10 AM) Segs-Bands # 6.3 K/CMM [1.5-8.1 K/CMM] (10/19/14 8:10 AM) Lymphocytes # 2.1 K/CMM [1.0-5.5 K/CMM] (10/19/14 8:10 AM) Monocytes # [0.0-0.8 0.8 K/CMM K/CMM] (10/19/14 8:10 AM) Eosinophils # 0.6 K/CMM [0.0-0.5 K/CMM] *HI* (10/19/14 8:10 AM) Basophils # [0.0-0.2 0.1 K/CMM K/CMM] (10/19/14 8:10 AM) Immunizations No data available for this [...]
--- OUTSIDE RECORDS SUMMARY | 2018-04-01 09:24 | XMS REPORT | Summary of Care ---
Author Author [facility] Organization [facility] Address Unknown Phone Unavailable Encounter GABRIEL Valencia(RJ) [id number] Date(s): 09/25/15 - 09/26/15 [facility] [address] [place] [address]- Discharge Diagnosis: Upper abdominal pain, unspecified Discharge Diagnosis: Low back pain Discharge Disposition: Home or Self Care Attending Physician: Yanely Pelayo DO Vital Signs 1 2 3 Most recent to oldest [Reference Range]: 162.56 cm (09/25/15 10:56 PM) Height 98.4 DegF (09/26/15 1:25 AM) 98.0 DegF (09/25/15 10:56 PM) Temperature Oral [96.4-99.1 DegF] 112/67 mmHg (09/26/15 1:25 AM) 161/90 mmHg *HI* (09/26/15 12:58 AM) 174/95 mmHg *HI* (09/25/15 10:56 PM) Blood Pressure [90-140/60-90 mmHg] 18 BRMIN (09/26/15 1:25 AM) 20 BRMIN (09/26/15 12:58 AM) 20 BRMIN (09/25/15 10:56 PM) Respiratory Rate [14-20 BRMIN] 82 bpm (09/26/15 1:25 AM) 78 bpm (09/26/15 12:58 AM) 82 bpm (09/25/15 10:56 PM) Peripheral Pulse Rate [60-100 bpm] 68.182 kg (09/25/15 10:56 PM) Weight 25.8 m2 (09/25/15 10:56 PM) Body Mass Index Problem List Condition Effective Dates Status Health Status Informant Acute bronchitis1, 2 08/08/13 Resolved Allergic rhinitis3 05/02/13 Active Arthritis(Confirmed) Active Arthritis(Confirmed) Active Asthma4 01/28/13 Active Backache(Confirmed) Active Benign essential 07/09/12 Active hypertension5 Child examination Resolved finding6 Chronic back pain7 02/16/59 Active Chronic headache 05/02/13 Active disorder8 Evaluation finding9 Resolved Gastritis(Confirmed) Resolved Gastroesophageal 08/08/13 Active reflux jkntafy32 GERD Resolved (gastroesophageal reflux disease)(Confirmed) Gynecologic Resolved HTN Active (hypertension)(Confi rmed) Hyperlipidemia(Confi Active rmed) Hyperlipidemia(Confi Active rmed) Hypertension(Confirm Active ed) Impaired fasting 01/16/13 Resolved fzarrvwdi63 Impaired glucose 01/16/13 Active itsebvypn44 Influenza 10/27/13 Resolved itfpudxwdud64, 15 Stqvhjoz26 01/28/13 Active Major depressive 03/24/14 Active jtaqovsn70 Migraine(Confirmed) Active Migraine(Confirmed) Active Mixed 12/28/12 Active hkglqieamlqnmo25 Mvuvvhwckbtzfb15 Active Iaawhbqjwu84 Active Physical examination Resolved ihqyfkflu03 Screening Resolved wtljeaprhje21 Sleep apnea23 10/27/13 Active 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) Nblokaq83 05/02/13 Active 1Data migrated from [employer] [...] Substance Reaction Severity Status NKDA Active Medications famotidine 20 mg, 2 mL, Route: IVP, Drug form: INJ, ONCE, Dosing Weight 64.545, kg, Priorit y: STAT, Start date: 09/25/15 22:59:00 CDT, Stop date: 09/25/15 22:59:00 CDT Notes: (Same as: Pepcid)Can be dilute in 5-10cc NS IVP: Slow IV push over at le ast 2 minutes. Start Date: 09/25/15 Stop Date: 09/26/15 Status: Completed ondansetron 4 mg, 2 mL, Route: IVP, Drug form: INJ, ONCE, Dosing Weight 64.545, kg, Priority : STAT, Start date: 09/25/15 22:59:00 CDT, Stop date: 09/25/15 22:59:00 CDT Notes: (Same as: Zofran) MEDICATION WASTE Product Size: 4 mgProduct Was guillaume: ___ mg Start Date: 09/25/15 Stop Date: 09/26/15 Status: Completed Saline Flush 0.9% 10 mL, Route: IVP, Drug Form: INJ, Dosing Weight 64.545, kg, PRN, PRN Line Flush , Start date: 09/25/15 22:59:00 CDT, Duration: 30 day, Stop date: 10/25/15 22:58 :00 CDT Notes: (Same as: BD Posiflush) Start Date: 09/25/15 Stop Date: 09/26/15 Status: Discontinued sodium chloride 0.9% 1000 ml INJ 1,000 mL 1,000 mL, Rate: 125 ml/hr, Infuse over: 8 hr, Route: IV, Dosing Weight 68.182 kg , Total Volume: 1,000, Start date: 09/26/15 0:14:00 CDT, Duration: 30 day, Stop date: 10/26/15 0:13:00 CDT Start Date: 09/26/15 Stop Date: 09/26/15 Status: Discontinued Valium 5 mg, 1 mL, Route: IVP, Drug form: INJ, ONCE, Dosing Weight 68.182, kg, Priority : STAT, Start date: 09/26/15 1:04:00 CDT, Stop date: 09/26/15 1:04:00 CDT Notes: (Same as: Valium)WASTE: F/P - Black; E - White/Blue Start Date: 09/26/15 Stop Date: 09/26/15 Status: Ordered Valium 2 mg oral tablet 2 mg=1 tab, PO, Bedtime, PRN Anxiety, X 7 day, # 7 tab, 0 Refill(s) Start Date: 09/26/15 Stop Date: 10/03/15 Status: Ordered Results ELECTROLYTES Most recent to 1 oldest [Reference Range]: Sodium Lvl [135-145 131 mEq/L mEq/L] *LOW* (09/26/15 12:06 AM) Potassium Lvl 3.4 mEq/L [3.5-5.1 mEq/L] *LOW* (09/26/15 12:06 AM) Chloride Lvl [95-109 98 mEq/L mEq/L] (09/26/15 12:06 AM) CO2 [24-32 mEq/L] 28 mEq/L (09/26/15 12:06 AM) AGAP [10.0-20.0 8.4 mEq/L mEq/L] *LOW* (09/26/15 12:06 AM) CHEM PANEL Most recent to 1 oldest [Reference Range]: Creatinine Lvl 0.63 mg/dL [0.50-1.40 mg/dL] (09/26/15 12:06 AM) eGFR 89 mL/min/1.73m2 1 *NA* (09/26/15 12:06 AM) BUN [7-22 mg/dL] 10 mg/dL (09/26/15 12:06 AM) B/C Ratio [6-25] 16 (09/26/15 12:06 AM) Glucose Lvl [70-99 106 mg/dL mg/dL] *HI* (09/26/15:06 AM) Total Protein 7.7 g/dL [6.4-8.4 g/dL] (09/26/15 12:06 AM) Albumin Lvl [3.5-5.0 4.0 g/dL g/dL] (09/26/15:06 AM) Globulin [2.7-4.2 3.7 g/dL g/dL] (09/26/1506 AM) A/G Ratio [0.7-1.6] 1.1 (09/26/1506 AM) Calcium Lvl 8.4 mg/dL [8.5-10.5 mg/dL] *LOW* (09/26/15 AM) Magnesium Lvl 2.4 mg/dL [1.8-2.4 mg/dL] (09/26/15:06 AM) ALT [0-65 unit/L] 22 unit/L (09/26/15:06 AM) AST [0-37 unit/L] 18 unit/L (09/26/15:06 AM) Alk Phos [39-136 108 unit/L unit/L] (09/26/15:06 AM) Bili Total [0.2-1.3 0.2 mg/dL mg/dL] (09/26/15 12:06 AM) 1Result Comment: The eGFR is calculated [...] 1 oldest [Reference Range]: Total CK [12-191 77 unit/L unit/L] (09/26/15 12:06 AM) CK MB [0.5-3.6 1.2 ng/mL ng/mL] (09/26/15:06 AM) CK MB Index 1.6 [0.0-2.5] (09/26/15:06 AM) Troponin-I <0.02 ng/mL [0.00-0.40 ng/mL] (09/26/1506 AM) BNP [<=100 pg/mL] 40 pg/mL (09/26/15:06 AM) HEMATOLOGY Most recent to 1 oldest [Reference Range]: WBC [3.7-10.4 K/CMM] 11.2 K/CMM *HI* (09/26/1506 AM) RBC [4.20-5.40 4.69 M/CMM M/CMM] (09/26/15:06 AM) Hgb [12.0-16.0 g/dL] 13.8 g/dL (09/26/15:06 AM) Hct [36.0-48.0 %] 40.7 % (09/26/15:06 AM) MCV [80.0-98.0 fL] 87.0 fL (09/26/15: AM) MCH [27.0-31.0 pg] 29.4 pg (09/26/15:06 AM) MCHC [32.0-36.0 33.8 g/dL g/dL] (09/26/15: AM) RDW [11.5-14.5 %] 13.5 % (09/26/15:06 AM) Platelet [133-450 352 K/CMM K/CMM] (09/26/15:06 AM) MPV [7.4-10.4 fL] 7.1 fL *LOW* (09/26/1506 AM) Segs [45.0-75.0 %] 66.1 % (09/26/15:06 AM) Lymphocytes 22.7 % [20.0-40.0 %] (09/26/15:06 AM) Monocytes [2.0-12.0 9.2 % %] (09/26/15 12:06 AM) Eosinophils [0.0-4.0 1.4 % %] (09/26/15 12:06 AM) Basophils [0.0-1.0 0.6 % %] (09/26/15 12:06 AM) Segs-Bands # 7.4 K/CMM [1.5-8.1 K/CMM] (09/26/15 12:06 AM) Lymphocytes # 2.5 K/CMM [1.0-5.5 K/CMM] (09/26/15 12:06 AM) Monocytes # [0.0-0.8 1.0 K/CMM K/CMM] *HI* (09/26/15 12:06 AM) Eosinophils # 0.2 K/CMM [0.0-0.5 K/CMM] (09/26/15 12:06 AM) Basophils # [0.0-0.2 0.1 K/CMM K/CMM] (09/26/15 12:06 AM) PT [12.0-14.7 13.7 seconds seconds] (09/26/15 12:06 AM) INR [0.85-1.17] 1.02 (09/26/15 12:06 AM) PTT [22.9-35.8 28.1 seconds seconds] (09/26/15 12:06 AM) Immunizations Given and Recorded Vaccine Date Status Refusal Reason influenza virus vaccine, inactivated1 10/27/13 Given influenza virus vaccine, inactivated2 10/27/13 Given pneumococcal 23-valent vaccine3 07/25/11 Given 1Result Comment: done high dose. Migrated from OBS ; Data migrated from [employer] on 08/30/2014. 2Result Comment: fluzone high dose [[id number]]. Migrated from OBS ; Data migrated from [employer] on 08/30/2014. 3Result Comment: historical. Migrated from OBS ; Data migrated from [employer] on 08/30/2014. Procedures Procedure Date Related Diagnosis Body Site Cataract surgery Excision of vein Tubal ligation Social History Social History Type Response Substance Abuse Use: None. Alcohol Never Smoking Status Never smoker; Exposure to Tobacco Smoke None; Cigarette Smoking Last 365 Days No; Reg Smoking Cessation Counseling No Assessment and Plan No data available for this section
--- OUTSIDE RECORDS SUMMARY | 2018-04-01 09:24 | XMS REPORT | Summary of Care ---
Author Author [facility] Organization [facility] Address Unknown Phone Unavailable Encounter GABRIEL Valencia(RJ) [id number] Date(s): 08/20/15 - 08/20/15 [facility] [address] [place] [address]- Discharge Diagnosis: Urinary tract infection, site not specified Discharge Disposition: Home Attending Physician: Lang Barton MD Vital Signs 1 2 3 Most recent to oldest [Reference Range]: 98 DegF (08/20/15 3:46 PM) 98.3 DegF (08/20/15 10:41 AM) Temperature Oral [96.4-99.1 DegF] 145/60 mmHg *HI* (08/20/15 3:46 PM) 141/66 mmHg *HI* (08/20/15 2:31 PM) 149/56 mmHg *HI* (08/20/15 1:00 PM) Blood Pressure [90-140/60-90 mmHg] 15 BRMIN (08/20/15 3:46 PM) 15 BRMIN (08/20/15 2:31 PM) 23 BRMIN *HI* (08/20/15 1:00 PM) Respiratory Rate [14-20 BRMIN] 66 bpm (08/20/15 10:41 AM) Peripheral Pulse Rate [60-100 bpm] Problem List Condition Effective Dates Status Health Status Informant Acute bronchitis1, 2 08/08/13 Resolved Allergic rhinitis3 05/02/13 Active Arthritis(Confirmed) Active Arthritis(Confirmed) Active Asthma4 01/28/13 Active Backache(Confirmed) Active Benign essential 07/09/12 Active hypertension5 Child examination Resolved finding6 Chronic back pain7 02/16/59 Active Chronic headache 05/02/13 Active disorder8 Evaluation finding9 Resolved Gastritis(Confirmed) Resolved Gastroesophageal 08/08/13 Active reflux nrtecav25 GERD Resolved (gastroesophageal reflux disease)(Confirmed) Gynecologic Resolved vwkhpnrmgsi17 HTN Active (hypertension)(Confi rmed) Hyperlipidemia(Confi Active rmed) Hyperlipidemia(Confi Active rmed) Hypertension(Confirm Active ed) Impaired fasting 01/16/13 Resolved ihtknypkr71 Impaired glucose 01/16/13 Active crdrwundu80 Influenza 10/27/13 Resolved fpjisdagwip82, 15 Savdqvgh91 01/28/13 Active Major depressive 03/24/14 Active tcyhnrii78 Migraine(Confirmed) Active Migraine(Confirmed) Active Mixed 12/28/12 Active fvqmcedledtjip06 Fbtqcmterhuelw42 Active Czfjbnrclw12 Active Physical examination Resolved jdnkpxvvu60 Screening Resolved pzpcymgoxas87 Sleep apnea23 10/27/13 Active 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) Nkblebm85 05/02/13 Active 1Data migrated from [employer] [...] [employer] on 09/01/14. 23Data migrated from [employer] on 07/15/14. 24Data migrated from [employer] on 07/15/14. Allergies, Adverse Reactions, Alerts Substance Reaction Severity Status NKDA Active Medications Bactrim DS 800 mg- 160 mg oral tablet 1 tab, PO, BID, X 7 day, # 14 tab, 0 Refill(s) Start Date: 08/20/15 Stop Date: 08/27/15 Status: Ordered cefTRIAXone 1 gm, Route: IVPB, Drug form: PDR/INJ, ONCE, Dosing Weight 65.909, kg, Priority: STAT, Start date: 08/20/15 14:08:00 CDT, Stop date: 08/20/15 14:08:00 CDT Start Date: 08/20/15 Stop Date: 08/20/15 Status: Completed morphine Sulfate 4 mg, 2 mL, Route: IVP, Drug form: INJ, ONCE, Dosing Weight 65.909, kg, Priority : STAT, Start date: 08/20/15 11:09:00 CDT, Stop date: 08/20/15 11:09:00 CDT Notes: (Same as:MORPhine Sulfate) Start Date: 08/20/15 Stop Date: 08/20/15 Status: Completed Motrin 400 mg, Route: PO, Drug form: TAB, ONCE, Dosing Weight 65.909, kg, Priority: STA T, Start date: 08/20/15 14:13:00 CDT, Stop date: 08/20/15 14:13:00 CDT Start Date: 08/20/15 Stop Date: 08/20/15 Status: Completed ondansetron 4 mg, 2 mL, Route: IVP, Drug form: INJ, ONCE, Dosing Weight 65.909, kg, Priority : STAT, Start date: 08/20/15 11:09:00 CDT, Stop date: 08/20/15 11:09:00 CDT Notes: (Same as: Zofran) MEDICATION WASTE Product Size: 4 mgProduct Was guillaume: ___ mg Start Date: 08/20/15 Stop Date: 08/20/15 Status: Completed Saline Flush 0.9% 10 mL, Route: IVP, Drug Form: INJ, Dosing Weight 65.909, kg, PRN, PRN Line Flush , Start date: 08/20/15 11:09:00 CDT, Duration: 30 day, Stop date: 09/19/15 11:08 :00 CDT Notes: Same as: BD Posiflush Sterile Start Date: 08/20/15 Stop Date: 08/21/15 Status: Discontinued sodium chloride 0.9% 1000 ml INJ 1,000 mL 1,000 mL, Rate: 125 ml/hr, Infuse over: 8 hr, Route: IV, Dosing Weight 65.909 kg , Total Volume: 1,000, Start date: 08/20/15 11:09:00 CDT, Duration: 30 day, Stop date: 09/19/15 11:08:00 CDT Start Date: 08/20/15 Stop Date: 08/21/15 Status: Discontinued Results ELECTROLYTES Most recent to 1 oldest [Reference Range]: Sodium Lvl [135-145 136 mEq/L mEq/L] (08/20/15 11:16 AM) Potassium Lvl 3.3 mEq/L [3.5-5.1 mEq/L] *LOW* (08/20/15 11:16 AM) Chloride Lvl [95-109 100 mEq/L mEq/L] (08/20/15 11:16 AM) CO2 [24-32 mEq/L] 25 mEq/L (08/20/15 11:16 AM) AGAP [10.0-20.0 14.3 mEq/L mEq/L] (08/20/15 11:16 AM) CHEM PANEL Most recent to 1 oldest [Reference Range]: Creatinine Lvl 0.57 mg/dL [0.50-1.40 mg/dL] (08/20/15 11:16 AM) eGFR 92 mL/min/1.73m2 1 *NA* (08/20/15 11:16 AM) BUN [7-22 mg/dL] 9 mg/dL (08/20/15 11:16 AM) B/C Ratio [6-25] 16 (08/20/15 11:16 AM) Glucose Lvl [70-99 140 mg/dL mg/dL] *HI* (08/20/15 11:16 AM) Total Protein 7.1 g/dL [6.4-8.4 g/dL] (08/20/15:16 AM) Albumin Lvl [3.5-5.0 3.5 g/dL g/dL] (08/20/15:16 AM) Globulin [2.0-4.0 3.6 g/dL g/dL] (08/20/1516 AM) A/G Ratio [0.7-1.6] 1.0 (08/20/15:16 AM) Calcium Lvl 8.5 mg/dL [8.5-10.5 mg/dL] (08/20/15:16 AM) ALT [0-65 unit/L] 20 unit/L (08/20/15:16 AM) AST [0-37 unit/L] 9 unit/L (08/20/1516 AM) Alk Phos [39-136 77 unit/L unit/L] (08/20/15:16 AM) Bili Total [0.2-1.3 0.3 mg/dL mg/dL] (08/20/1516 AM) Amylase Lvl [25-115 44 unit/L unit/L] (08/20/15:16 AM) Lipase Lvl [73-393 94 unit/L unit/L] (08/20/15:16 AM) 1Result Comment: The eGFR is calculated [...] 1 oldest [Reference Range]: Total CK [12-191 70 unit/L unit/L] (08/20/15 11:16 AM) CK MB [0.5-3.6 1.1 ng/mL ng/mL] (08/20/15 11:16 AM) CK MB Index 1.6 [0.0-2.5] (08/20/15 11:16 AM) Troponin-I 0.03 ng/mL [0.00-0.40 ng/mL] (08/20/15 11:16 AM) URINE AND STOOL Most recent to 1 oldest [Reference Range]: UA Turbidity [Clear] Clear (08/20/15:16 AM) UA Color Ltyellow *NA* (08/20/15 11:16 AM) UA pH [5.0-8.0] 7.0 (08/20/15 11:16 AM) UA Spec Grav 1.010 [<=1.030] (08/20/15 11:16 AM) UA Glucose [Negative Negative mg/dL mg/dL] *NA* (08/20/15 11:16 AM) UA Blood [Negative] Negative (08/20/15 11:16 AM) UA Ketones [Negative Negative mg/dL mg/dL] *NA* (08/20/15 11:16 AM) UA Protein [Negative Negative mg/dL mg/dL] (08/20/15 11:16 AM) UA Urobilinogen <=1.0 mg/dL [0.1-1.0 mg/dL] *NA* (08/20/15 11:16 AM) UA Bili [Negative] Negative *NA* (08/20/15 11:16 AM) UA Leuk Est Large [Negative] *ABN* (08/20/15 11:16 AM) UA Nitrite Negative [Negative] (08/20/15 11:16 AM) UA WBC [0-5 /HPF] 14 /HPF *HI* (08/20/15 11:16 AM) UA RBC [0-2 /HPF] 1 /HPF (08/20/15 11:16 AM) UA Bacteria [None Occasional /HPF Seen /HPF] *NA* (08/20/15 11:16 AM) UA Sq Epi [Few /LPF] Occasional /LPF *NA* (08/20/15 11:16 AM) UA Mucus [None Seen Few /LPF /LPF] *NA* (08/20/15 11:16 AM) HEMATOLOGY Most recent to 1 oldest [Reference Range]: WBC [3.7-10.4 K/CMM] 8.7 K/CMM (08/20/15 11:16 AM) RBC [4.20-5.40 4.31 M/CMM M/CMM] (08/20/15 11:16 AM) Hgb [12.0-16.0 g/dL] 12.7 g/dL (08/20/15 11:16 AM) Hct [36.0-48.0 %] 38.3 % (08/20/15 11:16 AM) MCV [80.0-98.0 fL] 88.9 fL (08/20/15 11:16 AM) MCH [27.0-31.0 pg] 29.4 pg (08/20/15 11:16 AM) MCHC [32.0-36.0 33.1 g/dL g/dL] (08/20/15 11:16 AM) RDW [11.5-14.5 %] 14.2 % (08/20/15 11:16 AM) Platelet [133-450 307 K/CMM K/CMM] (08/20/15 11:16 AM) MPV [7.4-10.4 fL] 7.9 fL (08/20/15 11:16 AM) Segs [45.0-75.0 %] 72.3 % (08/20/15 11:16 AM) Lymphocytes 17.5 % [20.0-40.0 %] *LOW* (08/20/15:16 AM) Monocytes [2.0-12.0 7.2 % %] (08/20/15 11:16 AM) Eosinophils [0.0-4.0 1.8 % %] (08/20/15 11:16 AM) Basophils [0.0-1.0 1.2 % %] *HI* (08/20/15 11:16 AM) Segs-Bands # 6.3 K/CMM [1.5-8.1 K/CMM] (08/20/15 11:16 AM) Lymphocytes # 1.5 K/CMM [1.0-5.5 K/CMM] (08/20/15 11:16 AM) Monocytes # [0.0-0.8 0.6 K/CMM K/CMM] (08/20/15 11:16 AM) Eosinophils # 0.2 K/CMM [0.0-0.5 K/CMM] (08/20/15 11:16 AM) Basophils # [0.0-0.2 0.1 K/CMM K/CMM] (08/20/15 11:16 AM) Immunizations Given and Recorded Vaccine Date Status Refusal Reason influenza virus vaccine, inactivated1 10/27/13 Given influenza virus vaccine, inactivated2 10/27/13 Given pneumococcal 23-valent vaccine3 07/25/11 Given 1Result Comment: done high dose. Migrated from OBS ; Data migrated from [employer] on 08/30/2014. 2Result Comment: fluzone high dose [[id number]]. Migrated from OBS ; Data migrated from [employer] on 08/30/2014. 3Result Comment: historical. Migrated from OBS ; Data migrated from [employer] on 08/30/2014. Procedures Procedure Date Related Diagnosis [...]
--- OUTSIDE RECORDS SUMMARY | 2018-04-01 09:24 | XMS REPORT | Summary of Care ---
Author Author [facility] Organization [facility] Address Unknown Phone Unavailable Encounter GABRIEL Valencia(RJ) [id number] Date(s): 09/14/15 - 09/14/15 [facility] [address] [place] [address]- Discharge Diagnosis: Generalized abdominal pain Discharge Diagnosis: Vomiting without nausea Discharge Diagnosis: Headache Discharge Disposition: Home or Self Care Attending Physician: René Arndt MD Vital Signs 1 2 3 Most recent to oldest [Reference Range]: 162.56 cm (09/14/15 1:09 PM) Height 98.4 DegF (09/14/15 6:30 PM) 98.2 DegF (09/14/15 1:09 PM) Temperature Oral [96.4-99.1 DegF] 129/81 mmHg (09/14/15 6:30 PM) 147/75 mmHg *HI* (09/14/15 3:00 PM) 157/82 mmHg *HI* (09/14/15 1:09 PM) Blood Pressure [90-140/60-90 mmHg] 17 BRMIN (09/14/15 6:30 PM) 19 BRMIN (09/14/15 3:00 PM) 18 BRMIN (09/14/15 1:09 PM) Respiratory Rate [14-20 BRMIN] 81 bpm (09/14/15 6:30 PM) 92 bpm (09/14/15 3:00 PM) 101 bpm *HI* (09/14/15 1:09 PM) Peripheral Pulse Rate [60-100 bpm] 64.545 kg (09/14/15 1:09 PM) Weight 24.43 m2 (09/14/15 1:09 PM) Body Mass Index Problem List Condition Effective Dates Status Health Status Informant Acute bronchitis1, 2 08/08/13 Resolved Allergic rhinitis3 05/02/13 Active Arthritis(Confirmed) Active Arthritis(Confirmed) Active Asthma4 01/28/13 Active Backache(Confirmed) Active Benign essential 07/09/12 Active hypertension5 Child examination Resolved finding6 Chronic back pain7 02/16/59 Active Chronic headache 05/02/13 Active disorder8 Evaluation finding9 Resolved Gastritis(Confirmed) Resolved Gastroesophageal 08/08/13 Active reflux jurwglx24 GERD Resolved (gastroesophageal reflux disease)(Confirmed) Gynecologic Resolved imxudbetvui34 HTN Active (hypertension)(Confi rmed) Hyperlipidemia(Confi Active rmed) Hyperlipidemia(Confi Active rmed) Hypertension(Confirm Active ed) Impaired fasting 01/16/13 Resolved bmnaultud61 Impaired glucose 01/16/13 Active rcjqtfkaz99 Influenza 10/27/13 Resolved msmcjcscokf90, 15 Osycmusy33 01/28/13 Active Major depressive 03/24/14 Active nvgtzjok91 Migraine(Confirmed) Active Migraine(Confirmed) Active Mixed 12/28/12 Active oetzferaduprgb20 Thrfezkciokfqe97 Active Cegjidjddg14 Active Physical examination Resolved Screening Resolved kiprzicdmqj69 Sleep apnea23 10/27/13 Active 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) Jjsydqp14 05/02/13 Active 1Data migrated from [employer] [...] Status NKDA Active Medications Benadryl 12.5 mg, 0.25 mL, Route: IVP, Drug form: INJ, ONCE, Dosing Weight 64.545, kg, Pr iority: STAT, Start date: 09/14/15 14:22:00 CDT, Stop date: 09/14/15 14:22:00 CD T Notes: (Same as: Benadryl) Start Date: 09/14/15 Stop Date: 09/14/15 Status: Completed morphine Sulfate 4 mg, Route: IVP, Drug form: INJ, ONCE, Dosing Weight 64.545, kg, Priority: STAT , Start date: 09/14/15 16:20:00 CDT, Stop date: 09/14/15 16:20:00 CDT Start Date: 09/14/15 Stop Date: 09/14/15 Status: Completed Reglan 10 mg, 2 mL, Route: IVP, Drug form: INJ, ONCE, Dosing Weight 64.545, kg, Priorit y: STAT, Start date: 09/14/15 14:22:00 CDT, Stop date: 09/14/15 14:22:00 CDT Notes: (Same as: Reglan) Start Date: 09/14/15 Stop Date: 09/14/15 Status: Completed Sodium Chloride 0.9% (Bolus) IV 1,000 mL, 1000 ml/hr, Infuse Over: 1 hr, Route: IV, 1,000, Drug form: INJ, ONCE, Priority: STAT, Dosing Weight 64.545 kg, Start date: 09/14/15 14:22:00 CDT, Dur ation: 1 doses or times, Stop date: 09/14/15 14:22:00 CDT Start Date: 09/14/15 Stop Date: 09/14/15 Status: Completed Zofran 4 mg, Route: IVP, Drug form: INJ, ONCE, Dosing Weight 64.545, kg, Priority: STAT , Start date: 09/14/15 16:20:00 CDT, Stop date: 09/14/15 16:20:00 CDT Start Date: 09/14/15 Stop Date: 09/14/15 Status: Completed Results ELECTROLYTES Most recent to 1 oldest [Reference Range]: Sodium Lvl [135-145 134 mEq/L mEq/L] *LOW* (09/14/15 2:13 PM) Potassium Lvl 3.5 mEq/L [3.5-5.1 mEq/L] (09/14/15 2:13 PM) Chloride Lvl [95-109 98 mEq/L mEq/L] (09/14/15 2:13 PM) CO2 [24-32 mEq/L] 26 mEq/L (09/14/15 2:13 PM) AGAP [10.0-20.0 13.5 mEq/L mEq/L] (09/14/15 2:13 PM) CHEM PANEL Most recent to 1 oldest [Reference Range]: Creatinine Lvl 0.54 mg/dL [0.50-1.40 mg/dL] (09/14/15 2:13 PM) eGFR 94 mL/min/1.73m2 1 *NA* (09/14/15 2:13 PM) BUN [7-22 mg/dL] 11 mg/dL (09/14/15 2:13 PM) B/C Ratio [6-25] 20 (09/14/15 2:13 PM) Glucose Lvl [70-99 128 mg/dL mg/dL] *HI* (09/14/15 2:13 PM) Total Protein 7.1 g/dL [6.4-8.4 g/dL] (09/14/15 2:13 PM) Albumin Lvl [3.5-5.0 3.7 g/dL g/dL] (09/14/15 2:13 PM) Globulin [2.0-4.0 3.4 g/dL g/dL] (09/14/15 2:13 PM) A/G Ratio [0.7-1.6] 1.1 (09/14/15 2:13 PM) Calcium Lvl 8.8 mg/dL [8.5-10.5 mg/dL] (09/14/15 2:13 PM) ALT [0-65 unit/L] 26 unit/L (09/14/15 2:13 PM) AST [0-37 unit/L] 15 unit/L (09/14/15 2:13 PM) Alk Phos [39-136 87 unit/L unit/L] (09/14/15 2:13 PM) Bili Total [0.2-1.3 0.2 mg/dL mg/dL] (09/14/15 2:13 PM) Amylase Lvl [25-115 42 unit/L unit/L] (09/14/15 2:13 PM) Lipase Lvl [73-393 71 unit/L unit/L] *LOW* (09/14/15 2:13 PM) 1Result Comment: The eGFR is calculated [...] recent to 1 oldest [Reference Range]: Troponin-I <0.02 ng/mL [0.00-0.40 ng/mL] (09/14/15 2:13 PM) URINE AND STOOL Most recent to 1 oldest [Reference Range]: UA Turbidity [Clear] Clear (09/14/15 3:05 PM) UA Color Ltyellow *NA* (09/14/15 3:05 PM) UA pH [5.0-8.0] 8.0 (09/14/15 3:05 PM) UA Spec Grav 1.010 [<=1.030] (09/14/15 3:05 PM) UA Glucose [Negative Negative mg/dL mg/dL] *NA* (09/14/15 3:05 PM) UA Blood [Negative] Negative (09/14/15 3:05 PM) UA Ketones [Negative Negative mg/dL mg/dL] *NA* (09/14/15 3:05 PM) UA Protein [Negative Negative mg/dL mg/dL] (09/14/15 3:05 PM) UA Urobilinogen <=1.0 mg/dL [0.1-1.0 mg/dL] *NA* (09/14/15 3:05 PM) UA Bili [Negative] Negative *NA* (09/14/15 3:05 PM) UA Leuk Est Trace [Negative] *ABN* (09/14/15 3:05 PM) UA Nitrite Negative [Negative] (09/14/15 3:05 PM) UA WBC [0-5 /HPF] <1 /HPF (09/14/15 3:05 PM) UA RBC [0-2 /HPF] 1 /HPF (09/14/15 3:05 PM) UA Bacteria [None Occasional /HPF Seen /HPF] *NA* (09/14/15 3:05 PM) UA Sq Epi [Few /LPF] Occasional /LPF *NA* (09/14/15 3:05 PM) HEMATOLOGY Most recent to 1 oldest [Reference Range]: WBC [3.7-10.4 K/CMM] 7.8 K/CMM (09/14/15 2:13 PM) RBC [4.20-5.40 4.36 M/CMM M/CMM] (09/14/15 2:13 PM) Hgb [12.0-16.0 g/dL] 12.9 g/dL (09/14/15 2:13 PM) Hct [36.0-48.0 %] 37.6 % (09/14/15 2:13 PM) MCV [80.0-98.0 fL] 86.4 fL (09/14/15 2:13 PM) MCH [27.0-31.0 pg] 29.6 pg (09/14/15 2:13 PM) MCHC [32.0-36.0 34.3 g/dL g/dL] (09/14/15 2:13 PM) RDW [11.5-14.5 %] 13.4 % (09/14/15 2:13 PM) Platelet [133-450 298 K/CMM K/CMM] (09/14/15 2:13 PM) MPV [7.4-10.4 fL] 7.3 fL *LOW* (09/14/15 2:13 PM) Segs [45.0-75.0 %] 72.1 % (09/14/15 2:13 PM) Lymphocytes 18.7 % [20.0-40.0 %] *LOW* (09/14/15 2:13 PM) Monocytes [2.0-12.0 6.8 % %] (09/14/15 2:13 PM) Eosinophils [0.0-4.0 1.8 % %] (09/14/15 2:13 PM) Basophils [0.0-1.0 0.6 % %] (09/14/15 2:13 PM) Segs-Bands # 5.6 K/CMM [1.5-8.1 K/CMM] (09/14/15 2:13 PM) Lymphocytes # 1.5 K/CMM [1.0-5.5 K/CMM] (09/14/15 2:13 PM) Monocytes # [0.0-0.8 0.5 K/CMM K/CMM] (09/14/15 2:13 PM) Eosinophils # 0.1 K/CMM [0.0-0.5 K/CMM] (09/14/15 2:13 PM) Immunizations Given and Recorded Vaccine Date Status Refusal Reason influenza virus vaccine, inactivated1 10/27/13 Given influenza virus vaccine, inactivated2 10/27/13 Given pneumococcal 23-valent vaccine3 07/25/11 Given 1Result Comment: done high dose. Migrated from OBS ; Data migrated from [employer] on 08/30/2014. 2Result Comment: fluzone high dose [[id number]]. Migrated from OBS ; Data migrated from [employer] on 08/30/2014. 3Result Comment: historical. Migrated from OBS ; Data migrated from [employer] on 08/30/2014. Procedures Procedure Date Related Diagnosis [...]
--- OUTSIDE RECORDS SUMMARY | 2018-04-01 09:24 | XMS REPORT | Summary of Care ---
Author Author [facility] Organization [facility] Address Unknown Phone Unavailable Encounter GABRIEL Valencia(RJ) [id number] Date(s): 08/25/15 - 08/25/15 [facility] [address] [place] [address]- [phone] Discharge Diagnosis: Back pain, chronic Discharge Disposition: Home Attending Physician: Oracio Perry MD Vital Signs 1 2 3 Most recent to oldest [Reference Range]: 162.56 cm (08/25/15 3:07 PM) Height 98.0 DegF (08/25/15 9:15 PM) 98.0 DegF (08/25/15 3:07 PM) Temperature Oral [96.4-99.1 DegF] 143/66 mmHg *HI* (08/25/15 9:15 PM) 155/68 mmHg *HI* (08/25/15 7:30 PM) 139/74 mmHg (08/25/15 6:37 PM) Blood Pressure [90-140/60-90 mmHg] 15 BRMIN (08/25/15 9:15 PM) 16 BRMIN (08/25/15 7:30 PM) 16 BRMIN (08/25/15 3:07 PM) Respiratory Rate [14-20 BRMIN] 70 bpm (08/25/15 9:15 PM) 68 bpm (08/25/15 7:30 PM) 72 bpm (08/25/15 3:07 PM) Peripheral Pulse Rate [60-100 bpm] 65 kg (08/25/15 3:07 PM) Weight 24.6 m2 (08/25/15 3:07 PM) Body Mass Index Problem List Condition Effective Dates Status Health Status Informant Acute bronchitis1, 2 08/08/13 Resolved Allergic rhinitis3 05/02/13 Active Arthritis(Confirmed) Active Arthritis(Confirmed) Active Asthma4 01/28/13 Active Backache(Confirmed) Active Benign essential 07/09/12 Active hypertension5 Child examination Resolved finding6 Chronic back pain7 02/16/59 Active Chronic headache 05/02/13 Active disorder8 Evaluation finding9 Resolved Gastritis(Confirmed) Resolved Gastroesophageal 08/08/13 Active reflux rewajqi78 GERD Resolved (gastroesophageal reflux disease)(Confirmed) Gynecologic Resolved vrhsjuusugw68 HTN Active (hypertension)(Confi rmed) Hyperlipidemia(Confi Active rmed) Hyperlipidemia(Confi Active rmed) Hypertension(Confirm Active ed) Impaired fasting 01/16/13 Resolved Impaired glucose 01/16/13 Active cwwbmseto78 Influenza 10/27/13 Resolved mrcbgpvujnc95, 15 Eqkjeaag40 01/28/13 Active Major depressive 03/24/14 Active Migraine(Confirmed) Active Migraine(Confirmed) Active Mixed 12/28/12 Active dkftmmsrpzdvyu72 Ojpvbbcseyxcnc88 Active Raizrvkvnb61 Active Physical examination Resolved ozrdsamyz20 Screening Resolved yocuayfuhsn30 Sleep apnea23 10/27/13 Active 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) Hdaskgo82 05/02/13 Active 1Data migrated from [employer] [...] NKDA Active Medications morphine Sulfate 4 mg, 2 mL, Route: IVP, Drug form: INJ, ONCE, Dosing Weight 65, kg, Priority: ST AT, Start date: 08/25/15 17:53:00 CDT, Stop date: 08/25/15 17:53:00 CDT Notes: (Same as:MORPhine Sulfate) Start Date: 08/25/15 Stop Date: 08/25/15 Status: Completed morphine Sulfate 2 mg, 1 mL, Route: IVP, Drug form: INJ, ONCE, Dosing Weight 65, kg, Priority: ST AT, Start date: 08/25/15 20:35:00 CDT, Stop date: 08/25/15 20:35:00 CDT Notes: (Same as:MORPhine Sulfate) Start Date: 08/25/15 Stop Date: 08/25/15 Status: Completed Zofran 4 mg, 2 mL, Route: IVP, Drug form: INJ, ONCE, Dosing Weight 65, kg, Priority: ST AT, Start date: 08/25/15 17:53:00 CDT, Stop date: 08/25/15 17:53:00 CDT Notes: (Same as: Zofran) MEDICATION WASTE Product Size: 4 mgProduct Was guillaume: ___ mg Start Date: 08/25/15 Stop Date: 08/25/15 Status: Completed Results ELECTROLYTES Most recent to 1 oldest [Reference Range]: Sodium Lvl [135-145 135 mEq/L mEq/L] (08/25/15 5:52 PM) Potassium Lvl 3.9 mEq/L [3.5-5.1 mEq/L] (08/25/15 5:52 PM) Chloride Lvl [95-109 100 mEq/L mEq/L] (08/25/15 5:52 PM) CO2 [24-32 mEq/L] 25 mEq/L (08/25/15 5:52 PM) AGAP [10.0-20.0 13.9 mEq/L mEq/L] (08/25/15 5:52 PM) CHEM PANEL Most recent to 1 oldest [Reference Range]: Creatinine Lvl 0.55 mg/dL [0.50-1.40 mg/dL] (08/25/15 5:52 PM) eGFR 93 mL/min/1.73m2 1 *NA* (08/25/15 5:52 PM) BUN [7-22 mg/dL] 8 mg/dL (08/25/15 5:52 PM) B/C Ratio [6-25] 15 (08/25/15 5:52 PM) Glucose Lvl [70-99 108 mg/dL mg/dL] *HI* (08/25/15 5:52 PM) Total Protein 6.8 g/dL [6.4-8.4 g/dL] (08/25/15 5:52 PM) Albumin Lvl [3.5-5.0 3.3 g/dL g/dL] *LOW* (08/25/15 5:52 PM) Globulin [2.0-4.0 3.5 g/dL g/dL] (08/25/15 5:52 PM) A/G Ratio [0.7-1.6] 0.9 (08/25/15 5:52 PM) Calcium Lvl 8.1 mg/dL [8.5-10.5 mg/dL] *LOW* (08/25/15 5:52 PM) ALT [0-65 unit/L] 19 unit/L (08/25/15 5:52 PM) AST [0-37 unit/L] 15 unit/L (08/25/15 5:52 PM) Alk Phos [39-136 78 unit/L unit/L] (08/25/15 5:52 PM) Bili Total [0.2-1.3 0.1 mg/dL mg/dL] *LOW* (08/25/15 5:52 PM) 1Result Comment: The eGFR is calculated [...] oldest [Reference Range]: UA Turbidity [Clear] Clear (08/25/15 5:52 PM) UA Color Ltyellow *NA* (08/25/15 5:52 PM) UA pH [5.0-8.0] 8.0 (08/25/15 5:52 PM) UA Spec Grav 1.009 [<=1.030] (08/25/15 5:52 PM) UA Glucose [Negative Negative mg/dL mg/dL] *NA* (08/25/15 5:52 PM) UA Blood [Negative] Negative (08/25/15 5:52 PM) UA Ketones [Negative Negative mg/dL mg/dL] *NA* (08/25/15 5:52 PM) UA Protein [Negative Negative mg/dL mg/dL] (08/25/15 5:52 PM) UA Urobilinogen <=1.0 mg/dL [0.1-1.0 mg/dL] *NA* (08/25/15 5:52 PM) UA Bili [Negative] Negative *NA* (08/25/15 5:52 PM) UA Leuk Est Trace [Negative] *ABN* (08/25/15 5:52 PM) UA Nitrite Negative [Negative] (08/25/15 5:52 PM) UA WBC [0-5 /HPF] <1 /HPF (08/25/15 5:52 PM) UA RBC [0-2 /HPF] 1 /HPF (08/25/15 5:52 PM) UA Sq Epi [Few /LPF] Occasional /LPF *NA* (08/25/15 5:52 PM) HEMATOLOGY Most recent to 1 oldest [Reference Range]: WBC [3.7-10.4 K/CMM] 8.7 K/CMM (08/25/15 5:52 PM) RBC [4.20-5.40 4.58 M/CMM M/CMM] (08/25/15 5:52 PM) Hgb [12.0-16.0 g/dL] 13.4 g/dL (08/25/15 5:52 PM) Hct [36.0-48.0 %] 41.2 % (08/25/15 5:52 PM) MCV [80.0-98.0 fL] 90.0 fL (08/25/15 5:52 PM) MCH [27.0-31.0 pg] 29.3 pg (08/25/15 5:52 PM) MCHC [32.0-36.0 32.5 g/dL g/dL] (08/25/15 5:52 PM) RDW [11.5-14.5 %] 13.8 % (08/25/15 5:52 PM) Platelet [133-450 326 K/CMM K/CMM] (08/25/15 5:52 PM) MPV [7.4-10.4 fL] 7.3 fL *LOW* (08/25/15 5:52 PM) Segs [45.0-75.0 %] 59.5 % (08/25/15 5:52 PM) Lymphocytes 26.8 % [20.0-40.0 %] (08/25/15 5:52 PM) Monocytes [2.0-12.0 9.1 % %] (08/25/15 5:52 PM) Eosinophils [0.0-4.0 3.6 % %] (08/25/15 5:52 PM) Basophils [0.0-1.0 1.0 % %] (08/25/15 5:52 PM) Segs-Bands # 5.2 K/CMM [1.5-8.1 K/CMM] (08/25/15 5:52 PM) Lymphocytes # 2.3 K/CMM [1.0-5.5 K/CMM] (08/25/15 5:52 PM) Monocytes # [0.0-0.8 0.8 K/CMM K/CMM] (08/25/15 5:52 PM) Eosinophils # 0.3 K/CMM [0.0-0.5 K/CMM] (08/25/15 5:52 PM) Basophils # [0.0-0.2 0.1 K/CMM K/CMM] (08/25/15 5:52 PM) PT [12.0-14.7 13.5 seconds seconds] (08/25/15 5:52 PM) INR [0.85-1.17] 1.00 (08/25/15 5:52 PM) PTT [22.9-35.8 27.7 seconds seconds] (08/25/15 5:52 PM) Immunizations Given and Recorded Vaccine Date Status Refusal Reason influenza virus vaccine, inactivated1 10/27/13 Given influenza virus vaccine, inactivated2 10/27/13 Given pneumococcal 23-valent vaccine3 07/25/11 Given 1Result Comment: done high dose. Migrated from OBS ; Data migrated from [employer] on 08/30/2014. 2Result Comment: fluzone high dose [[id number]]. Migrated from OBS ; Data migrated from [employer] on 08/30/2014. 3Result Comment: historical. Migrated from OBS ; Data migrated from [employer] on 08/30/2014. Procedures Procedure Date Related Diagnosis [...]
--- OUTSIDE RECORDS SUMMARY | 2018-04-01 09:24 | XMS REPORT | Summary of Care ---
Author Author [facility] Organization [facility] Address Unknown Phone Unavailable Encounter GABRIEL Valencia(RJ) [id number] Date(s): 06/04/15 - 06/06/15 [facility] [address] [place] [address]- Discharge Disposition: Home Attending Physician: Myesha Valdez MD Admitting Physician: Myesha Valdez MD Vital Signs 1 2 3 Most recent to oldest [Reference Range]: 162.56 cm (06/04/15 3:27 PM) Height 97.9 DegF (06/06/15 11:02 AM) 97.7 DegF (06/06/15 7:11 AM) 97.9 DegF (06/06/15 4:00 AM) Temperature Oral [96.4-99.1 DegF] 134/72 mmHg (06/06/15 11:02 AM) 169/80 mmHg *HI* (06/06/15 7:11 AM) 183/93 mmHg *HI* (06/06/15 4:00 AM) Blood Pressure [90-140/60-90 mmHg] 18 BRMIN (06/06/15 11:02 AM) 18 BRMIN (06/06/15 7:11 AM) 18 BRMIN (06/06/15 4:00 AM) Respiratory Rate [14-20 BRMIN] 77 bpm (06/06/15 11:02 AM) 65 bpm (06/06/15 7:11 AM) 63 bpm (06/06/15 4:00 AM) Peripheral Pulse Rate [60-100 bpm] 62.727 kg (06/04/15 3:27 PM) Weight 23.74 m2 (06/04/15 3:27 PM) Body Mass Index Problem List Condition Effective Dates Status Health Status Informant Acute bronchitis1, 2 08/08/13 Resolved Allergic rhinitis3 05/02/13 Active Arthritis(Confirmed) Active Arthritis(Confirmed) Active Asthma4 01/28/13 Active Backache(Confirmed) Active Benign essential 07/09/12 Active hypertension5 Child examination Resolved finding6 Chronic back pain7 02/16/59 Active Chronic headache 05/02/13 Active disorder8 Evaluation finding9 Resolved Gastritis(Confirmed) Resolved Gastroesophageal 08/08/13 Active reflux xigwwaf15 GERD Resolved (gastroesophageal reflux disease)(Confirmed) Gynecologic Resolved fgktsqdaxmh61 HTN Active (hypertension)(Confi rmed) Hyperlipidemia(Confi Active rmed) Hyperlipidemia(Confi Active rmed) Hypertension(Confirm Active ed) Impaired fasting 01/16/13 Resolved ocooljdud34 Impaired glucose 01/16/13 Active xlnrusmqg67 Influenza 10/27/13 Resolved tawwjujimuh59, 15 Mfgrftee57 01/28/13 Active Major depressive 03/24/14 Active Migraine(Confirmed) Active Migraine(Confirmed) Active Mixed 12/28/12 Active ebfmjwicvsqlzg78 Tnyyptqycvhrat41 Active Xnocxhtnlc54 Active Physical examination Resolved ugcjaystw21 Screening Resolved hfanqfwdfin78 Sleep apnea23 10/27/13 Active 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 (Same as: Tylenol) Start Date: 06/05/15 Stop Date: 06/06/15 Status: Discontinued amitriptyline 25 mg, PO, Bedtime, 0 Refill(s) Start Date: 06/04/15 Status: Ordered amitriptyline 25 mg, 1 tab, Route: PO, Drug form: TAB, Bedtime, Dosing Weight 62.727, kg, Star t date: 06/05/15 21:00:00 CDT, Duration: 30 day, Stop date: 07/04/15 21:00:00 CD T Notes: (Same as: Elavil) Start Date: 06/05/15 Stop Date: 06/06/15 Status: Discontinued APAP/butalbital/caffeine 1 tab, Route: PO, Drug Form: TAB, Q4H, PRN Headache 1-5, Start date: 06/05/15 13 :30:00 CDT, Duration: 30 day, Stop date: 07/05/15 13:29:00 CDT Notes: (ysmoivqvlxogg-vtxgtwcsfc-viuppoxf 325-50-40mg) Do not exceed 4 gm/day o f acetaminophen. (Same as: Esgic, Fioricet) Start Date: 06/05/15 Stop Date: 06/06/15 Status: Discontinued aspirin 81 mg tablet, chewable 81 mg, 1 tab, Route: PO, Drug form: CHEWTAB, Daily, Dosing Weight 62.727, kg, St art date: 06/04/15 22:00:00 CDT, Duration: 30 day, Stop date: 07/04/15 9:00:00 C DT Notes: Take with food. Start Date: 06/04/15 Stop Date: 06/06/15 Status: Discontinued atorvastatin 40 mg oral tablet 40 mg=1 tab, PO, Bedtime, # 30 tab, 0 Refill(s) Start Date: 06/05/15 Stop Date: 07/05/15 Status: Ordered Jen 5 mg-20 mg oral tablet 1 tab, Route: PO, Drug Form: TAB, Dosing Weight 62.727, kg, Daily, Start date: 0 06/05/15 9:00:00 CDT, Duration: 30 day, Stop date: 07/04/15 9:00:00 CDT Start Date: 06/05/15 Stop Date: 06/04/15 Status: Deleted Benicar 20 mg, 1 tab, Route: PO, Drug form: TAB, Daily, Start date: 06/05/15 9:00:00 CDT , Duration: 30 day, Stop date: 07/04/15 9:00:00 CDT Start Date: 06/05/15 Stop Date: 06/06/15 Status: Discontinued cefTRIAXone 1 gm, Route: IVPB, Drug form: PDR/INJ, ONCE, Dosing Weight 62.727, kg, Priority: STAT, Start date: 06/04/15 19:45:00 CDT, Stop date: 06/04/15 19:45:00 CDT Start Date: 06/04/15 Stop Date: 06/04/15 Status: Completed Colace 100 mg oral capsule 100 mg, 1 cap, Route: PO, Drug form: CAP, BID, Dosing Weight 62.727, kg, PRN Con stipation, Start date: 06/05/15 12:08:00 CDT, Duration: 30 day, Stop date: 07/04 12:07:00 CDT Notes: (Same as: Colace) (Do Not Crush) Start Date: 06/05/15 Stop Date: 06/06/15 Status: Discontinued Fioricet 300 mg-50 mg-40 mg oral capsule 1 cap, PO, TID, 0 Refill(s) Start Date: 06/04/15 Status: Ordered Fiorinal oral capsule 1 cap, Route: PO, Drug Form: CAP, Dosing Weight 62.727, kg, Q4H, PRN Headache 1- 5, Start date: 06/05/15 13:11:00 CDT, Duration: 30 day, Stop date: 07/05/15 13:1 0:00 CDT Start Date: 06/05/15 Stop Date: 06/05/15 Status: Deleted hydrALAZINE 10 mg, 0.5 mL, Route: IVP, Drug form: INJ, Q6H, Dosing Weight 62.727, kg, Priori ty: NOW, Start date: 06/06/15 6:02:00 CDT, Duration: 30 day, Stop date: 07/06/15 6:00:00 CDT Notes: (Same as: Apresoline)Push over 5 minutes Start Date: 06/06/15 Stop Date: 06/06/15 Status: Discontinued Lipitor 40 mg, 1 tab, Route: PO, Drug form: TAB, Bedtime, Dosing Weight 62.727, kg, Star t date: 06/05/15 21:00:00 CDT, Duration: 30 day, Stop date: 07/04/15 21:00:00 CD T Notes: (Same as: Lipitor) Start Date: 06/05/15 Stop Date: 06/06/15 Status: Discontinued Maalox Advanced Regular Strength SUSP 30 mL, Route: PO, Drug Form: SUSP, Dosing Weight 62.727, kg, QID, PRN Indigestio n, Start date: 06/05/15 12:08:00 CDT, Duration: 30 day, Stop date: 07/05/15 12:0 7:00 CDT Notes: (aluminum hydroxide-magnesium hyd-simethicone [phone]/5ml 30 ml ud S US) Start Date: 06/05/15 Stop Date: 06/06/15 Status: Discontinued MiraLax 17 gm, 1 pkt, Route: PO, Drug form: PWDR, Daily, Dosing Weight 62.727, kg, Start date: 06/06/15 9:00:00 CDT, Duration: 30 day, Stop date: 07/05/15 9:00:00 CDT Notes: Dissolve in 8 oz of water or juice.(Same as: Miralax) Start Date: 06/06/15 Stop Date: 06/06/15 Status: Discontinued morphine Sulfate 2 mg, Route: IVP, Drug form: INJ, ONCE, Dosing Weight 62.727, kg, Priority: STAT , Start date: 06/04/15 18:34:00 CDT, Stop date: 06/04/15 18:34:00 CDT Start Date: 06/04/15 Stop Date: 06/04/15 Status: Completed nitroglycerin SL Tab 0.4 mg, 1 tab, Route: SL, Drug form: TAB, Q5Min, Dosing Weight 62.727, kg, PRN C hest Pain, Start date: 06/04/15 21:41:00 CDT, Duration: 3 doses or times, Stop d ate: Limited # of times Notes: (Same as:Nitroquick, Nitrostat)"Do Not Crush" Sublingual tablet Start Date: 06/04/15 Stop Date: 06/06/15 Status: Discontinued Norvasc 5 mg, 1 tab, Route: PO, Drug form: TAB, Daily, Start date: 06/05/15 9:00:00 CDT, Duration: 30 day, Stop date: 07/04/15 9:00:00 CDT Notes: (Same as: Norvasc) Start Date: 06/05/15 Stop Date: 06/05/15 Status: Discontinued omeprazole 40 mg, Route: PO, Drug form: DRC, BID, Dosing Weight 62.727, kg, Start date: 9:00:00 CDT, Duration: 30 day, Stop date: 07/04/15 17:00:00 CDT Start Date: 06/05/15 Stop Date: 06/04/15 Status: Deleted pantoprazole 40 mg, 1 tab, Route: PO, Drug form: ECTAB, Before Breakfast, Dosing Weight 62.72 7, kg, Start date: 06/05/15 7:30:00 CDT, Duration: 30 day, Stop date: 07/04/15 7 :30:00 CDT Notes: Tablet should not be chewed or crushed.(Same as: Protonix) Start Date: 06/05/15 Stop Date: 06/06/15 Status: Discontinued potassium chloride 20 mEq oral tablet, extended release 40 mEq, 2 tab, Route: PO, Drug form: ERTAB, ONCE, Dosing Weight 62.727, kg, Star t date: 06/06/15 10:24:00 CDT, Stop date: 06/06/15 10:24:00 CDT Notes: (Same as: K-Dur 20)"Do Not Crush" With food and full glass of water Start Date: 06/06/15 Stop Date: 06/06/15 Status: Completed potassium chloride 20 mEq oral tablet, extended release 40 mEq, 2 tab, Route: PO, Drug form: ERTAB, ONCE, Dosing Weight 62.727, kg, Star t date: 06/05/15 12:09:00 CDT, Stop date: 06/05/15 12:09:00 CDT Notes: (Same as: K-Dur 20)"Do Not Crush" With food and full glass of water Start Date: 06/05/15 Stop Date: 06/05/15 Status: Completed Saline Flush 0.9% 10 mL, Route: IVP, Drug Form: INJ, Dosing Weight 62.727, kg, PRN, PRN Line Flush , Start date: 06/04/15 16:46:00 CDT, Duration: 30 day, Stop date: 07/04/15 16:45 :00 CDT Notes: (Same as: BD Posiflush) Start Date: 06/04/15 Stop Date: 06/04/15 Status: Discontinued Saline Flush 0.9% 10 ml, Route: IVP, Drug Form: INJ, Dosing Weight 62.727, kg, Q12H, Start date: 0 06/05/15 9:00:00 CDT, Duration: 30 day, Stop date: 07/04/15 21:00:00 CDT Notes: (Same as: BD Posiflush) Start Date: 06/05/15 Stop Date: 06/06/15 Status: Discontinued Saline Flush 0.9% 10 ml, Route: IVP, Drug Form: INJ, Dosing Weight 62.727, kg, PRN, PRN Line Flush , Start date: 06/04/15 21:41:00 CDT, Duration: 30 day, Stop date: 07/04/15 21:40 :00 CDT Notes: (Same as: BD Posiflush) Start Date: 06/04/15 Stop Date: 06/06/15 Status: Discontinued simvastatin 80 mg, 2 tab, Route: PO, Drug form: TAB, Bedtime, Dosing Weight 62.727, kg, Star t date: 06/05/15 21:00:00 CDT, Duration: 30 day, Stop date: 07/04/15 21:00:00 CD T Notes: (Same as: Zocor) Start Date: 06/05/15 Stop Date: 06/05/15 Status: Canceled Sodium Chloride 0.9% IV 1,000 mL 1,000 mL, Rate: 75 ml/hr, Infuse over: 13.3 hr, Route: IV, Dosing Weight 62.727 kg, Total Volume: 1,000, Start date: 06/04/15 21:41:00 CDT, Duration: 30 day, St op date: 07/04/15 21:40:00 CDT Start Date: 06/04/15 Stop Date: 06/06/15 Status: Discontinued Toprol-XL 25 mg oral tablet, extended release 25 mg, 1 tab, Route: PO, Drug form: ERTAB, Daily, Start date: 06/05/15 14:30:00 CDT, Duration: 30 day, Stop date: 07/05/15 9:00:00 CDT Notes: (Same as: Toprol XL) Do Not Crush Start Date: 06/05/15 Stop Date: 06/06/15 Status: Discontinued Toprol-XL 25 mg oral tablet, extended release 25 mg=1 tab, PO, Daily, # 30 tab, 0 Refill(s) Start Date: 06/05/15 Stop Date: 07/05/15 Status: Ordered Zofran 4 mg, 2 mL, Route: IVP, Drug form: INJ, Q4H, Dosing Weight 62.727, kg, PRN Nause a, Start date: 06/05/15 9:24:00 CDT, Duration: 30 day, Stop date: 07/05/15 9:23: 00 CDT Notes: (Same as: Zofran) MEDICATION WASTE Product Size: 4 mgProduct Was guillaume: ___ mg Start Date: 06/05/15 Stop Date: 06/06/15 Status: Discontinued Results ELECTROLYTES 1 2 3 Most recent to oldest [Reference Range]: 137 mEq/L (06/06/15 5:19 AM) 138 mEq/L (06/04/15 11:07 PM) 133 mEq/L *LOW* (06/04/15 5:01 PM) Sodium Lvl [135-145 mEq/L] 3.4 mEq/L *LOW* (06/06/15 5:19 AM) 3.1 mEq/L *LOW* (06/04/15 11:07 PM) 3.7 mEq/L (06/04/15 5:01 PM) Potassium Lvl [3.5-5.1 mEq/L] 103 mEq/L (06/06/15 5:19 AM) 103 mEq/L (06/04/15 11:07 PM) 96 mEq/L (06/04/15 5:01 PM) Chloride Lvl [95-109 mEq/L] 26 mEq/L (06/06/15 5:19 AM) 27 mEq/L (06/04/15 11:07 PM) 30 mEq/L (06/04/15 5:01 PM) CO2 [24-32 mEq/L] 11.4 mEq/L (06/06/15 5:19 AM) 11.1 mEq/L (06/04/15 11:07 PM) 10.7 mEq/L (06/04/15 5:01 PM) AGAP [10.0-20.0 mEq/L] CHEM PANEL 1 2 3 Most recent to oldest [Reference Range]: 0.49 mg/dL *LOW* (06/06/15 5:19 AM) 0.50 mg/dL (06/04/15 11:07 PM) 0.56 mg/dL (06/04/15 5:01 PM) Creatinine Lvl [0.50-1.40 mg/dL] 98 mL/min/1.73m2 1 *NA* (06/06/15 5:19 AM) 97 mL/min/1.73m2 2 *NA* (06/04/15 11:07 PM) 93 mL/min/1.73m2 3 *NA* (06/04/15 5:01 PM) eGFR 7 mg/dL (06/06/15 5:19 AM) 7 mg/dL (06/04/15 11:07 PM) 10 mg/dL (06/04/15 5:01 PM) BUN [7-22 mg/dL] 18 (06/04/15 5:01 PM) B/C Ratio [6-25] 88 mg/dL (06/06/15 5:19 AM) 121 mg/dL *HI* (06/04/15 11:07 PM) 165 mg/dL *HI* (06/04/15 5:01 PM) Glucose Lvl [70-99 mg/dL] 6.9 g/dL (06/04/15 5:01 PM) Total Protein [6.4-8.4 g/dL] 3.5 g/dL (06/04/15 5:01 PM) Albumin Lvl [3.5-5.0 g/dL] 3.4 g/dL (06/04/15 5:01 PM) Globulin [2.0-4.0 g/dL] 1.0 (06/04/15 5:01 PM) A/G Ratio [0.7-1.6] 8.4 mg/dL *LOW* (06/06/15 5:19 AM) 8.0 mg/dL *LOW* (06/04/15 11:07 PM) 8.7 mg/dL (06/04/15 5:01 PM) Calcium Lvl [8.5-10.5 mg/dL] 3.2 mg/dL (06/06/15 5:19 AM) 3.0 mg/dL (06/04/15 11:07 PM) 3.0 mg/dL (06/04/15 5:01 PM) Phosphorus [2.5-4.5 mg/dL] 2.1 mg/dL (06/06/15 5:19 AM) 2.2 mg/dL (06/04/15 11:07 PM) 2.3 mg/dL (06/04/15 5:01 PM) Magnesium Lvl [1.8-2.4 mg/dL] 21 unit/L (06/04/15 5:01 PM) ALT [0-65 unit/L] 11 unit/L (06/04/15 5:01 PM) AST [0-37 unit/L] 79 unit/L (06/04/15 5:01 PM) Alk Phos [39-136 unit/L] 0.2 mg/dL (06/04/15 5:01 PM) Bili Total [0.2-1.3 mg/dL] 1Result Comment: [...] be mul tiplied by the estimated BMI. 3Result Comment: The eGFR is calculated using the [...] 3 Most recent to oldest [Reference Range]: 21 unit/L (06/05/15 4:11 AM) 23 unit/L (06/04/15 11:07 PM) 28 unit/L (06/04/15 5:01 PM) Total CK [12-191 unit/L] 0.8 ng/mL (06/04/15 5:01 PM) CK MB [0.5-3.6 ng/mL] 2.9 *HI* (06/04/15 5:01 PM) CK MB Index [0.0-2.5] 0.03 ng/mL (06/05/15 4:11 AM) 0.03 ng/mL (06/04/15 11:07 PM) 0.03 ng/mL (06/04/15 5:01 PM) Troponin-I [0.00-0.40 ng/mL] 33 pg/mL (06/04/15 5:01 PM) BNP [<=100 pg/mL] LIPIDS 1 2 3 Most recent to oldest [Reference Range]: 3.55 *LOW* (06/05/15 4:11 AM) CHD Risk [3.90-5.80] 231 mg/dL *HI* (06/05/15 4:11 AM) Chol [<=199 mg/dL] 98 mg/dL (06/05/15 4:11 AM) Trig [<=149 mg/dL] 65 mg/dL (06/05/15 4:11 AM) HDL [>=61 mg/dL] 146 mg/dL *HI* (06/05/15 4:11 AM) LDL (Calculated) [<=99 mg/dL] 20 *NA* (06/05/15 4:11 AM) VLDL URINE AND STOOL 1 2 3 Most recent to oldest [Reference Range]: Clear (06/04/15 5:01 PM) UA Turbidity [Clear] Ltyellow *NA* (06/04/15 5:01 PM) UA Color 8.0 (06/04/15 5:01 PM) UA pH [5.0-8.0] 1.006 (06/04/15 5:01 PM) UA Spec Grav [<=1.030] 50 mg/dL *ABN* (06/04/15 5:01 PM) UA Glucose [Negative mg/dL] Negative (06/04/15 5:01 PM) UA Blood [Negative] Trace mg/dL *ABN* (06/04/15 5:01 PM) UA Ketones [Negative mg/dL] Negative mg/dL (06/04/15 5:01 PM) UA Protein [Negative mg/dL] <=1.0 mg/dL *NA* (06/04/15 5:01 PM) UA Urobilinogen [0.1-1.0 mg/dL] Negative *NA* (06/04/15 5:01 PM) UA Bili [Negative] Small *ABN* (06/04/15 5:01 PM) UA Leuk Est [Negative] Positive *ABN* (06/04/15 5:01 PM) UA Nitrite [Negative] 7 /HPF *HI* (06/04/15 5:01 PM) UA WBC [0-5 /HPF] 1 /HPF (06/04/15 5:01 PM) UA RBC [0-2 /HPF] Occasional /LPF *NA* (06/04/15 5:01 PM) UA Sq Epi [Few /LPF] Negative (06/04/15 5:01 PM) Occult Bld Stl [Negative] HEMATOLOGY 1 2 3 Most recent to oldest [Reference Range]: 10.9 K/CMM *HI* (06/06/15 5:19 AM) 8.6 K/CMM (06/04/15 5:01 PM) WBC [3.7-10.4 K/CMM] 4.46 M/CMM (06/06/15 5:19 AM) 4.63 M/CMM (06/04/15 5:01 PM) RBC [4.20-5.40 M/CMM] 12.8 g/dL (06/06/15 5:19 AM) 13.3 g/dL (06/04/15 5:01 PM) Hgb [12.0-16.0 g/dL] 38.8 % (06/06/15:19 AM) 40.3 % (06/04/15 5: PM) Hct [36.0-48.0 %] 86.9 fL (06/06/15 AM) 87.0 fL (06/04/15 5: PM) MCV [80.0-98.0 fL] 28.8 pg (06/06/15: AM) 28.8 pg (06/04/15: PM) MCH [27.0-31.0 pg] 33.1 g/dL (06/06/15: AM) 33.0 g/dL (06/04/15 5: PM) MCHC [32.0-36.0 g/dL] 14.6 % *HI* (06/06/15: AM) 14.9 % *HI* (06/04/15 5: PM) RDW [11.5-14.5 %] 328 K/CMM (06/06/15: AM) 380 K/CMM (06/04/15 5: PM) Platelet [133-450 K/CMM] 7.0 fL *LOW* (06/06/15: AM) 7.7 fL (06/04/15: PM) MPV [7.4-10.4 fL] 58.6 % (06/06/15: AM) 84.3 % *HI* (06/04/15 5: PM) Segs [45.0-75.0 %] 29.3 % (06/06/15: AM) 9.0 % *LOW* (06/04/15 5: PM) Lymphocytes [20.0-40.0 %] 8.9 % (06/06/15 AM) 6.0 % (06/04/15: PM) Monocytes [2.0-12.0 %] 2.4 % (06/06/15: AM) 0.1 % (06/04/15 5:01 PM) Eosinophils [0.0-4.0 %] 0.8 % (4/20/16 5:19 AM) 0.6 % (06/04/15 5:01 PM) Basophils [0.0-1.0 %] 6.4 K/CMM (06/06/15 5:19 AM) 7.2 K/CMM (06/04/15 5:01 PM) Segs-Bands # [1.5-8.1 K/CMM] 3.2 K/CMM (06/06/15 5:19 AM) 0.8 K/CMM *LOW* (06/04/15 5:01 PM) Lymphocytes # [1.0-5.5 K/CMM] 1.0 K/CMM *HI* (06/06/15 5:19 AM) 0.5 K/CMM (06/04/15 5:01 PM) Monocytes # [0.0-0.8 K/CMM] 0.3 K/CMM (06/06/15 5:19 AM) Eosinophils # [0.0-0.5 K/CMM] 0.1 K/CMM (06/06/15 5:19 AM) 0.1 K/CMM (06/04/15 5:01 PM) Basophils # [0.0-0.2 K/CMM] Normal (06/04/15 5:01 PM) RBC Morph Normal (06/04/15 5:01 PM) Plt Morph 13.8 seconds (06/04/15 5:01 PM) PT [12.0-14.7 seconds] 1.03 (06/04/15 5:01 PM) INR [0.85-1.17] 0.24 ug/mL FEU *NA* (06/05/15 3:32 PM) D-Dimer 26.8 seconds (06/04/15 5:01 PM) PTT [22.9-35.8 seconds] Immunizations Vaccine Date Refusal Reason influenza virus vaccine, inactivated1 10/27/13 influenza virus vaccine, inactivated2 10/27/13 pneumococcal 23-valent vaccine3 07/25/11 1Result Comment: done high dose. Migrated from OBS ; Data migrated from [employer] on 08/30/2014. 2Result Comment: fluzone high dose [[id number]]. Migrated from OBS ; Data migrated from [employer] on 08/30/2014. 3Result Comment: historical. Migrated from OBS ; Data migrated from [employer] [place] on 08/30/2014. Procedures Procedure Date Related Diagnosis Body Site Excision of vein Social History Social History Type Response Substance Abuse Use: None. Alcohol Never Smoking Status Never smoker; Exposure to Tobacco Smoke None; Cigarette Smoking Last 365 Days No; Reg Smoking Cessation Counseling No Assessment and Plan Extracted from: Title: CARDIOLOGY Author: Osmani Perales Date: 06/06/15 [facility] [place] CARDIOLOGY PROGRESS NOTE Dr. Welch & Dr. Chun Attending: Myesha Valdez MDPhone: Service: Internal Medicine Code status: Full Code [Ordered] Reason for Admission: PALPITATIONS NEAR SYNCOPE Working DRG: None Documented Isolation: None Documented SUBJECTIVE DOing well. HR much better controlled after IV fluids. TTE done and reviewed: preserved LVEF, no gross valvular abnormalities. She says that she feels much better. Wants to go home. PHYSICAL EXAM VitalsTmp(F)[id number] 06/05 11:[id number]--- 06/05 07:1197.018290/593011--- 06/05 04:[id number]--- 06/05 00:0097.750887/032473--- 06/04 19:[id number]--- 24 Hr Tmax: 98.4F (36.89c) at 06/04 19:07Vital Signs are the last 5 in the past 48 hours. I&ORecordInOutBal 05/2023hr Tot 11 0 11 05/1923hr Tot 12 0 12 GENERAL: In bed, in some pain HEENT: Moist mucous membranes, neck supple, JVD absent, carotid bruit absent CV: RRR, S1/S2 normal, S3/S4 negative. MARLENE LUSB LUNGS: CTA bilatearlly, no wheezing ABD: Soft, non tender, non distended, no masses or megalies on my exam EXT: Edema trace, pulses present NEURO: AAOx3, moves 4 extremities, no gross deficit on my exam Telemetry: Sinus rhythm Labs (Last four charted values) WBC H 10.9(JUN 05)8.6(JUN 03) Hgb 12.8(JUN 05)13.3(JUN 03) Hct 38.8(JUN 05)40.3(JUN 03) Plt 328(JUN 05)380(JUN 03) Na 137(JUN 05)138(JUN 03)L 133(JUN 03) K L 3.4(JUN 05)L 3.1(JUN 03)3.7(JUN 03) CO2 26(JUN 05)27(JUN 03)30(JUN 03) Cl 103(JUN 05)103(JUN 03)96(JUN 03) Cr L 0.49(JUN 05)0.50(JUN 03)0.56(JUN 03) BUN 7(JUN 05)7(JUN 03)10(JUN 03) Glucose Random 88(JUN 05)H 121(JUN 03)H 165(JUN 03) Mg 2.1(JUN 05)2.2(JUN 03)2.3(JUN 03) Phos 3.2(JUN 05)3.0(JUN 03)3.0(JUN 03) Ca L 8.4(JUN 05)L 8.0(JUN 03)8.7(JUN 03) PT 13.8(JUN 03) INR 1.03(JUN 03) PTT 26.8(JUN 03) Troponin 0.03(JUN 04)0.03(JUN 03)0.03(JUN 03) CK MB 0.8(JUN 03) Total CK 21(JUN 04)23(JUN 03)28(JUN 03) Medications (2) Active Scheduled Meds: None Unscheduled Meds: None PRN Meds: None One Time Meds (2): 06/05/15 (Completed) potassium chloride (potassium chloride 20 mEq oral tablet, extended release) 40 mEq PO ONCE 06/06/15 (Completed) potassium chloride (potassium chloride 20 mEq oral tablet, extended release) 40 mEq PO ONCE Continuous Infusions: None ASSESSMENT & PLAN PALPITATIONS - Resolved after IV hydration and med adjustment. - TTE done and reviewed and LVEF is preserved with no gross valvular abnormalities. - Hydration encouraged. - Continue Toprol XL 25mg PO qd HTN - Better controlled now. - olmesartan, norvacs and now on Toprol XL - Low sodium diet HLD - On lipitor. - Continue same. ABDOMINAL PAIN - Resolved OK to DC home from CV standpoint. SHe will follow up with me in 1-2 weeks for continued evaluation and BP control. Plan of action explained to the patient and husbadn at bedside. They voice understanding. All questions answered. Extracted from: Title: CARDIOLOGY Author: Osmani Perales Date: 06/05/15 [place] [place] CARDIOLOGY CONSULT Dr. Welch & Dr. Chun REASON FOR CONSULT: PALPITATIONS REQUESTING MD: Myesha Valdez MD HISTORY OF PRESENT ILLNESS Mrs. Sprague is a pleasant 74yo female with a PMHx of HTN,HLD, chronic back pain who is now [place] [facility] [place] and abdominal pain. She refers that for the last 2 months she has been having intermittent palpitaitons which have been progressively getting worse and more frequent. SHe says that everytime she exerts herself she feels her heart racing and with it she feels generalized fatigue and shortness of breath, which usually gets better wiht rest. above, these symptoms are getting more frequent, and there are no particular or specific triggers to these symptoms. She has no chest pain, syncope or claudication. Currently she is in CDU; is at bedside. she says that currently she feels better, but still feels her heart racing. She is also complaining of back pain for which she uses a brace. Denies any current CV omplaints besides palpitations. PAST MEDICAL HISTORY HTN HLD Low cortisol (?) GERD Migraines Chronic back pain PAST SURGICAL HISTORY Hysterectomy Vaicose veins surgery (*?) ALLERGIES NKDA FAMILY HISTORY Non contributory HOME MEDS See MAR SOCIAL HISTORY Smoking Denies EtOH Denies Other Denies REVIEW OF SYSTEMS Nervous: Denies Endocrine: Denies Skin: Denies CV: No chest pain. Palpitations as per HPI. No syncope. Respiratory: SHortness of breath as per HPI Hematology/Coagulation: Denies Urinary: Denies Genital: Denies Metabolic: Denies MSK: Back pain GI: Abdominal discomfort. ID: Denies Endo: Denies Rheum: Denies PHYSICAL EXAM VitalsTmp(F)[id number] 06/04 [id number]--- 06/04 06:[id number]--- 06/04 04:[id number]--- 06/04 02:56----98-------100--- 06/04 02:45----[id number]/103--100--- 24 Hr Tmax: 98.5F (36.94c) at 06/03 21:53Vital Signs are the last 5 in the past 48 hours. I&ORecordInOutBal 05/1923hr Tot 2 0 2 05/1823hr Tot 0 0 0 GENERAL: In bed, in some pain HEENT: Moist mucous membranes, neck supple, JVD absent, carotid bruit absent CV: RRR, tachycardic, S1/S2 normal, S3/S4 negative. MARLENE LUSB LUNGS: CTA bilatearlly, no wheezing ABD: Soft, non tender, non distended, no masses or megalies on my exam EXT: Edema trace, pulses present NEURO: AAOx3, moves 4 extremities, no gross deficit on my exam ECG: Sinus tachycardia, NSST Telemetry: Sinus tachycardia, NSST Labs (Last four charted values) WBC 8.6(JUN 03) Hgb 13.3(JUN 03) Hct 40.3(JUN 03) Plt 380(JUN 03) Na 138(JUN 03)L 133(JUN 03) K L 3.1(JUN 03)3.7(JUN 03) CO2 27(JUN 03)30(JUN 03) Cl 103(JUN 03)96(JUN 03) Cr 0.50(JUN 03)0.56(JUN 03) BUN 7(JUN 03)10(JUN 03) Glucose Random H 121(JUN 03)H 165(JUN 03) Mg 2.2(JUN 03)2.3(JUN 03) Phos 3.0(JUN 03)3.0(JUN 03) Ca L 8.0(JUN 03)8.7(JUN 03) PT 13.8(JUN 03) INR 1.03(JUN 03) PTT 26.8(JUN 03) Troponin 0.03(JUN 04)0.03(JUN 03)0.03(JUN 03) CK MB 0.8(JUN 03) Total CK 21(JUN 04)23(JUN 03)28(JUN 03) Scheduled Meds (8): 06/05/15 amLODIPine (Norvasc) 5 mg PO Daily 06/05/15 amitriptyline 25 mg PO Bedtime 06/04/15 aspirin (aspirin 81 mg tablet, chewable) 81 mg PO Daily 06/05/15 olmesartan (Benicar) 20 mg PO Daily 06/05/15 pantoprazole 40 mg PO Before Breakfast 06/06/15 polyethylene glycol 3350 (MiraLax) 17 gm PO Daily 06/05/15 simvastatin 80 mg PO Bedtime 06/05/15 sodium chloride (Saline Flush 0.9%) 10 ml IVP Q12H PRN Meds (7): 06/05/15 APAP/butalbital/caffeine 1 tab PO Q4H 06/05/15 Al hydroxide/Mg hydroxide/simethicone (Maalox Advanced Regular Strength SUSP) 30 mL PO QID 06/05/15 acetaminophen 650 mg PO Q6H 06/05/15 docusate (Colace 100 mg oral capsule) 100 mg PO BID 06/04/15 nitroglycerin (nitroglycerin SL Tab) 0.4 mg SL Q5Min 06/05/15 ondansetron (Zofran) 4 mg IVP Q4H 06/04/15 sodium chloride (Saline Flush 0.9%) 10 ml IVP PRN ASSESSMENT & PLAN PALPITATIONS - Unclear etiology; ECG here shows sinus tachycardia and so does telemetry. No evidence of other arrhytmias since arrival. - Furthermore, she says she currently feels the palpitations (again, tele shows sinus tach at 105-110x) - Will get TTE with Doppler for LVEF assessment and valvular hemodynamics. - ACS is r/o with negative cardiac biomarkers. - BNP is 33. TSH is wnl. - IV hydration; she appears dehydrated. - Check d-dimer. - Keep on telemetry HTN - Not at target. - SHe is on norvac and olmesartan - Will DC norvasc; start Toprol XL 25mg PO qd - Will follow and adjust HLD - Uncontrolled. - SHe is on simvastatin 80mg. WIll DC and start low dose lipitor.\\ - Low fat diet ABDOMINAL PAIN - Unclear etiology. - CT abd/pelvis done. - Primary managing. Further recommendations to follow. TTE pending. Extracted from: Title: Clinical Document Author: Willis Rubio MD Date: 06/04/15 History and Physical Attending: Myesha Valdez MDPhone: Service: Emergency Medicine Service Code status: None Specified=FULL CODE Reason for Admission: PALPITATIONS NEAR SYNCOPE Working DRG: None Documented Isolation: None Documented Consulting Physicians: Josias Chun MDOffice: MSO: [id number]: Cardiology CC: palpitations HPI: This is a 74 yo w/ below PMHx who p/w 2 month h/o palpitations but getting worse. Brazilian phone floor hand used. Palpitations occur in the morning and at night, lasting an hour at a time. She can be sitting or walking, it does not matter what she is doing when they start. Denies associated CP but does have SOB. No lightheadedness or dizziness. Has mild LLQ sided abdominal pain over the past week, cannot describe, occurs w/ eating and radiates to the back. Pt has multiple complaints like headache and back pain but they are chronic. PMHx: HTN HLD chronic back pain migraine GERD low cortisol state PSHx: hysterectomy b/l varicose vein surgery FHx: 2 brother and 1 brother w/ "heart problems" SHx: Denies T/E/D Meds: See medicine reconciliation Medication List Active Medications Ordered sodium chloride: 10 mL, IVP, PRN, PRN: Line Flush. Prescribed aspirin: 81 mg, 1 tab, PO, Daily, 120 tab, 11 Refill(s). omeprazole: 40 mg, 1 cap, PO, BID, take 1 tab twice daily x 14 days, then once daily before meals, 60 tab, 0 Refill(s). Documented acetaminophen-codeine: 1 tab, PO, Q6H, PRN: Pain Score 1-5, 0 Refill(s). amLODIPine-olmesartan: 1 tab, PO, Daily, 0 Refill(s). ibuprofen: 800 mg, PO, TID, PRN: Pain Score 1-5, 0 Refill(s). non-formulary: See Instructions, BUT/ACETAMINPHEN/CAFF 1 cap po q6h prn pain, 0 Refill(s). non-formulary: See Instructions, accuflora 2 caps po bid, 0 Refill(s). non-formulary: See Instructions, K 99mg po daily, 0 Refill(s). simvastatin: 80 mg, PO, Bedtime, 0 Refill(s). Medications Inactivated in the Last 72 Hours cefTRIAXone: 1 gm, IVPB, ONCE. cefTRIAXone: 1 gm, PYXIS, ONCE. morphine Sulfate: 2 mg, 1 mL, PYXIS, ONCE. morphine Sulfate: 2 mg, IVP, ONCE. Sodium Chloride 0.9% IV: 100 mL, PYXIS, ONCE. temazepam: 15 mg, 1 cap, PO, Bedtime, for 30 day, PRN: Sleep, 30 cap, 0 Refill(s). Allergies: NKDA ROS: See HPI. All other systems reviewed by myself are negative unless noted above. Physical Exam: VitalsTmp(F)[id number] 06/03 18:56----[id number]--- 06/03 18:[id number]--- 06/03 16:30----[id number]--- 06/03 15:[id number]--- 24 Hr Tmax: 98.1F (36.72c) at 06/03 18:36Vital Signs are the last 5 in the past 48 hours. General: NAD, nontoxic appearing HEENT: NCAT, PERRL, dry MM, no JVD Cardiovascular: RRR, S1S2 Respiratory: CTAB Abdomen: soft, +BS, NT/ND Extremities: no b/l LE edema Skin: no rashes Neurologic: comprehension and speech intact, CN III-XII grossly intact Musculoskeletal: symmetric strength in all extremities Rectal/: deferred Labs: 24hr Labs 06/03 1701 Sodium Cux384 L Potassium Lvl3.7 Chloride Lvl96 CO230 AGAP10.7 Glucose Ggg115 H Creatinine Lvl0.56 BUN10 B/C Ratio18 Total Protein6.9 Albumin Lvl3.5 Globulin3.4 A/G Ratio1.0 Calcium Lvl8.7 ALT21 AST11 Alk Phos79 Bili Total0.2 eGFR93 Total CK28 Magnesium Lvl2.3 Phosphorus3.0 Troponin-I0.03 CK MB0.8 CK MB Index2.9 H BNP33 WBC8.6 RBC4.63 Hgb13.3 Hct40.3 MCV87.0 MCH28.8 MCHC33.0 RDW14.9 H Wdairxhz761 MPV7.7 PT13.8 INR1.03 PTT26.8 Segs84.3 H Monocytes6.0 Lymphocytes9.0 L Eosinophils0.1 Basophils0.6 Segs-Bands #7.2 Lymphocytes #0.8 L Monocytes #0.5 Basophils #0.1 RBC MorphNormal Plt MorphNormal Occult Bld StlNegative UA ColorLtyellow UA TurbidityClear UA Spec Grav1.006 UA pH8.0 UA ProteinNegative UA Karvomt33 UA KetonesTrace UA BiliNegative UA BloodNegative UA Urobilinogen<=1.0 UA NitritePositive UA Leuk EstSmall UA RBC1 UA WBC7 H UA Sq EpiOccasional Micro: urine cx sent Imaging: CT abd/pelvis: 1. No acute abnormality. No urinary tract pathology. 2. Extensive diverticulosis with constipation. 3. Hepatic cysts, unchanged. 5. Hysterectomy. 5. Moderate spondylosis. CXR: No acute abnormality or change. EKG: sinus tachy, no major ST abnormalities Assessment and Plan: This is a 74 yo who p/w palpitations w/ associated SOB and multiple chronic complaints. Palpitations could be from dehydration, arrhythmia, or anxiety. UA may be suggestive of UTI but she does not have any symptoms. # palpitations: telemetry, cardiology consult, EKG reviewed, trend cardiac enzymes, iv fluids # hypovolemic hyponatremia: iv fluids and recheck # HTN/HLD: c/w home regimen Prophylaxis: SCDs Diet: heart healthy Willis Rubio Jacket Preparer
--- OUTSIDE RECORDS SUMMARY | 2018-04-01 09:24 | XMS REPORT | Summary of Care ---
Author Author [facility] Organization [facility] Address Unknown Phone Unavailable Encounter GABRIEL Valencia(RJ) [id number] Date(s): 06/14/15 - 06/15/15 [facility] [address] [place] [address]- [phone] Discharge Diagnosis: DJD (degenerative joint disease), lumbar Discharge Disposition: Home Attending Physician: Audrey Bartholomew DO Vital Signs 1 2 3 Most recent to oldest [Reference Range]: 152.4 cm (06/14/15 6:58 PM) Height 97.1 DegF (06/15/15 2:11 AM) 97.8 DegF (06/15/15 1:36 AM) 97.8 DegF (06/14/15 11:58 PM) Temperature Oral [96.4-99.1 DegF] 133/71 mmHg (06/15/15 2:11 AM) Blood Pressure [90-140/60-90 mmHg] 168 mmHg *HI* (06/15/15 1:36 AM) 199 mmHg *HI* (06/14/15 11:58 PM) Systolic Blood Pressure [90-140 mmHg] 74 mmHg (06/15/15 1:36 AM) 99 mmHg *HI* (06/14/15 11:58 PM) Diastolic Blood Pressure [60-90 mmHg] 18 BRMIN (06/15/15 2:11 AM) 18 BRMIN (06/15/15 1:36 AM) 18 BRMIN (06/14/15 11:58 PM) Respiratory Rate [14-20 BRMIN] 75 bpm (06/15/15 2:11 AM) 76 bpm (06/15/15 1:36 AM) 77 bpm (06/14/15 11:58 PM) Peripheral Pulse Rate [60-100 bpm] 65.909 kg (06/14/15 6:58 PM) Weight 28.38 m2 (06/14/15 6:58 PM) Body Mass Index Problem List Condition Effective Dates Status Health Status Informant Acute bronchitis1, 2 08/08/13 Resolved Allergic rhinitis3 05/02/13 Active Arthritis(Confirmed) Active Arthritis(Confirmed) Active Asthma4 01/28/13 Active Backache(Confirmed) Active Benign essential 07/09/12 Active hypertension5 Child examination Resolved finding6 Chronic back pain7 02/16/59 Active Chronic headache 05/02/13 Active disorder8 Evaluation finding9 Resolved Gastritis(Confirmed) Resolved Gastroesophageal 08/08/13 Active reflux oikiocj04 GERD Resolved (gastroesophageal reflux disease)(Confirmed) Gynecologic Resolved olhskjrzawu96 HTN Active (hypertension)(Confi rmed) Hyperlipidemia(Confi Active rmed) Hyperlipidemia(Confi Active rmed) Hypertension(Confirm Active ed) Impaired fasting 01/16/13 Resolved tbegwzbbj79 Impaired glucose 01/16/13 Active qgcyttlcj72 Influenza 10/27/13 Resolved foruftsffhe38, 15 Tldvrwpf52 01/28/13 Active Major depressive 03/24/14 Active Migraine(Confirmed) Active Migraine(Confirmed) Active Mixed 12/28/12 Active peqkvvpvighbiu93 Hfqxqjpqmrtefi91 Active Idtcjyfmkm53 Active Physical examination Resolved vgznyieks27 Screening Resolved fyisotnygnb18 Sleep apnea23 10/27/13 Active 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) Uzmmwmi95 05/02/13 Active 1Data migrated from [employer] [...] Severity Status NKDA Active Medications Benadryl 25 mg, Route: IVP, ONCE, Dosing Weight 65.909, kg, Priority: STAT, Start date: 0 06/15/15 0:32:00 CDT, Stop date: 06/15/15 0:32:00 CDT Start Date: 06/15/15 Stop Date: 06/15/15 Status: Completed GI cocktail 30 mL, Route: PO, Dosing Weight 65.909, kg, ONCE, STAT, Start date: 06/14/15 21: 37:00 CDT, Stop date: 06/14/15 21:37:00 CDT Start Date: 06/14/15 Stop Date: 06/14/15 Status: Completed ketOROLAC 15 mg, Route: IVP, Drug form: INJ, ONCE, Dosing Weight 65.909, kg, Priority: STA T, Start date: 06/15/15 0:32:00 CDT, Stop date: 06/15/15 0:32:00 CDT Start Date: 06/15/15 Stop Date: 06/15/15 Status: Completed [place] 5/325 oral tablet 1 tab, Route: PO, Drug Form: TAB, Dosing Weight 65.909, kg, ONCE, STAT, Start da te: 06/14/15 23:00:00 CDT, Stop date: 06/14/15 23:00:00 CDT Notes: (Same as: [place] 325/5) Do not exceed 4gm/day of acetaminophen. Start Date: 06/14/15 Stop Date: 06/14/15 Status: Completed Reglan 10 mg, Route: IVP, Drug form: INJ, ONCE, Dosing Weight 65.909, kg, Priority: STA T, Start date: 06/15/15 0:32:00 CDT, Stop date: 06/15/15 0:32:00 CDT Start Date: 06/15/15 Stop Date: 06/15/15 Status: Completed Robaxin 750 mg, 1 tab, Route: PO, Drug form: TAB, ONCE, Dosing Weight 65.909, kg, Priori ty: STAT, Start date: 06/14/15 22:59:00 CDT, Stop date: 06/14/15 22:59:00 CDT Notes: (Same as:Robaxin) Start Date: 06/14/15 Stop Date: 06/14/15 Status: Discontinued Tylenol with Codeine #3 oral tablet 1 - 2 tab, PO, Q4H, PRN Pain, X 2 day, # 20 tab, 0 Refill(s) Start Date: 06/14/15 Stop Date: 06/16/15 Status: Completed Tylenol with Codeine #3 oral tablet 1 tab, Route: PO, Drug Form: TAB, Dosing Weight 65.909, kg, ONCE, STAT, Start da te: 06/14/15 20:48:00 CDT, Stop date: 06/14/15 20:48:00 CDT Notes: Do not exceed 4gm/day of acetaminophen. (Same as: Tylenol with Codeine # 3) Start Date: 06/14/15 Stop Date: 06/14/15 Status: Completed Results URINE AND STOOL Most recent to 1 oldest [Reference Range]: UA Turbidity [Clear] Clear (06/14/15 9:13 PM) UA Color Ltyellow *NA* (06/14/15 9:13 PM) UA pH [5.0-8.0] 8.0 (06/14/15 9:13 PM) UA Spec Grav 1.004 [<=1.030] (06/14/15 9:13 PM) UA Glucose [Negative Negative mg/dL mg/dL] *NA* (06/14/15 9:13 PM) UA Blood [Negative] Small *ABN* (06/14/15 9:13 PM) UA Ketones [Negative Negative mg/dL mg/dL] *NA* (06/14/15 9:13 PM) UA Protein [Negative Negative mg/dL mg/dL] (06/14/15 9:13 PM) UA Urobilinogen <=1.0 mg/dL [0.1-1.0 mg/dL] *NA* (06/14/15 9:13 PM) UA Bili [Negative] Negative *NA* (06/14/15 9:13 PM) UA Leuk Est Large [Negative] *ABN* (06/14/15 9:13 PM) UA Nitrite Negative [Negative] (06/14/15 9:13 PM) UA WBC [0-5 /HPF] 2 /HPF (06/14/15 9:13 PM) UA RBC [0-2 /HPF] 1 /HPF (06/14/15 9:13 PM) UA Bacteria [None Occasional /HPF Seen /HPF] *NA* (06/14/15 9:13 PM) UA Sq Epi None Seen *NA* (06/14/15 9:13 PM) UA Renal Epi [<=0 1 /LPF /LPF] *HI* (06/14/15 9:13 PM) UA Trans Epi [<=0 3 /LPF /LPF] *HI* (06/14/15 9:13 PM) Immunizations Vaccine Date Refusal Reason influenza virus vaccine, inactivated1 10/27/13 influenza virus vaccine, inactivated2 10/27/13 pneumococcal 23-valent vaccine3 07/25/11 1Result Comment: done high dose. Migrated from OBS ; Data migrated from [employer] on 08/30/2014. 2Result Comment: fluzone high dose [[id number]]. Migrated from OBS ; Data migrated from [employer] on 08/30/2014. 3Result Comment: historical. Migrated from OBS ; Data migrated from [employer] on 08/30/2014. Procedures Procedure Date Related Diagnosis Body Site Excision of vein Social History Social History Type Response Substance Abuse Use: None. Alcohol Never Smoking Status Never smoker; Exposure to Tobacco Smoke None; Cigarette Smoking Last 365 Days No; Reg Smoking Cessation Counseling No Assessment and Plan No data available for this section
--- OUTSIDE RECORDS SUMMARY | 2018-04-01 09:25 | XMS REPORT | Summary of Care ---
Author Author [facility] Organization [facility] Address Unknown Phone Unavailable Encounter GABRIEL Valencia(RJ) [id number] Date(s): 10/24/15 - 10/25/15 [facility] [address] [place] [address]- Discharge Diagnosis: Asthma Discharge Diagnosis: Epigastric abdominal pain Discharge Disposition: Home or Self Care Attending Physician: Lang Barton MD Vital Signs 1 2 3 Most recent to oldest [Reference Range]: 98.5 DegF (10/25/15 6:27 AM) 98.3 DegF (10/24/15 11:07 PM) Temperature Oral [96.4-99.1 DegF] 116/53 mmHg (10/25/15 6:27 AM) 162/66 mmHg *HI* (10/25/15 5:13 AM) 169/75 mmHg *HI* (10/25/15 1:34 AM) Blood Pressure [90-140/60-90 mmHg] 20 BRMIN (10/25/15 6:27 AM) 20 BRMIN (10/25/15 5:13 AM) 16 BRMIN (10/25/15 4:51 AM) Respiratory Rate [14-20 BRMIN] 108 bpm *HI* (10/24/15 11:07 PM) Peripheral Pulse Rate [60-100 bpm] Problem List Condition Effective Dates Status Health Status Informant Acute bronchitis1, 2 08/08/13 Resolved Allergic rhinitis3 05/02/13 Active Arthritis(Confirmed) Active Arthritis(Confirmed) Active Asthma4 01/28/13 Active Backache(Confirmed) Active Benign essential 07/09/12 Active hypertension5 Child examination Resolved finding6 Chronic back pain7 02/16/59 Active Chronic headache 05/02/13 Active disorder8 Evaluation finding9 Resolved Gastritis(Confirmed) Resolved Gastroesophageal 08/08/13 Active reflux odwlxne39 GERD Resolved (gastroesophageal reflux disease)(Confirmed) Gynecologic Resolved qxatvsadeba56 HTN Active (hypertension)(Confi rmed) HTN - Resolved Hypertension(Confirm ed) Hyperlipidemia(Confi Active rmed) Hyperlipidemia(Confi Active rmed) Hypertension(Confirm Active ed) Impaired fasting 01/16/13 Resolved nftjymiaj03 Impaired glucose 01/16/13 Active wbmkuyttg78 Influenza 10/27/13 Resolved glechufhlmd81, 15 Dogeqdex05 01/28/13 Active Major depressive 03/24/14 Active yvjjmqof49 Migraine(Confirmed) Active Migraine(Confirmed) Resolved Migraine(Confirmed) Active Mixed 12/28/12 Active ktohwdrkbhelkq11 Golyvfhgaomjub12 Active Fyhtydubay64 Active Physical examination Resolved kaeywpkme34 Screening Resolved otntveueicb91 Sleep apnea23 10/27/13 Active 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) Ac DVT/embl low ext Resolved NOS(Confirmed) Jyfbufr15 05/02/13 Active 1Data migrated from [employer] [...] 07/15/14. 20Data migrated from [employer] on 5/30/15. 21Data migrated from [employer] on 09/01/14. 22Data migrated from [facility] on 09/01/14. 23Data migrated from [facility] on 07/15/14. 24Data migrated from [facility] on 07/15/14. Allergies, Adverse Reactions, Alerts Substance Reaction Severity Status NKDA Active Medications DuoNeb inhalation solution 3 ml, Route: NEB, Drug Form: SOLN, Dosing Weight 62.727, kg, PRN, PRN Respirator y Protocol, Start date: 10/25/15 4:43:00 CDT, Duration: 30 day, Stop date: 11/23 4:42:00 CDT Notes: (Same as: Duoneb) Start Date: 10/25/15 Stop Date: 10/25/15 Status: Discontinued morphine Sulfate 4 mg, Route: IVP, ONCE, Dosing Weight 62.727, kg, Priority: STAT, Start date: 3:09:00 CDT, Stop date: 10/25/15 3:09:00 CDT Start Date: 10/25/15 Stop Date: 10/25/15 Status: Completed ondansetron 4 mg, Route: IVP, Drug form: INJ, ONCE, Dosing Weight 62.727, kg, Priority: STAT , Start date: 10/25/15 2:05:00 CDT, Stop date: 10/25/15 2:05:00 CDT Start Date: 10/25/15 Stop Date: 10/25/15 Status: Completed predniSONE 60 mg, Route: PO, Drug form: TAB, ONCE, Dosing Weight 62.727, kg, Priority: STAT , Start date: 10/25/15 5:56:00 CDT, Stop date: 10/25/15 5:56:00 CDT Start Date: 10/25/15 Stop Date: 10/25/15 Status: Completed predniSONE 20 mg oral tablet 40 mg=2 tab, PO, Daily, X 4 day, # 8 tab, 0 Refill(s) Start Date: 10/25/15 Stop Date: 10/29/15 Status: Ordered Sodium Chloride 0.9% IV 1,000 mL 1,000 mL, Rate: 75 ml/hr, Infuse over: 13.3 hr, Route: IV, Dosing Weight 62.727 kg, Total Volume: 1,000, Priority: STAT, Start date: 10/25/15 2:05:00 CDT, Durat ion: 1 doses or times, Stop date: 10/25/15 15:22:00 CDT Start Date: 10/25/15 Stop Date: 10/25/15 Status: Completed Valium 5 mg, Route: PO, ONCE, Dosing Weight 62.727, kg, Priority: STAT, Start date: 10/01 5:46:00 CDT, Stop date: 10/25/15 5:46:00 CDT Start Date: 10/25/15 Stop Date: 10/25/15 Status: Completed Results ELECTROLYTES Most recent to 1 oldest [Reference Range]: Sodium Lvl [135-145 132 mEq/L mEq/L] *LOW* (10/25/15 2:18 AM) Potassium Lvl 3.5 mEq/L [3.5-5.1 mEq/L] (10/25/15 2:18 AM) Chloride Lvl [95-109 94 mEq/L mEq/L] *LOW* (10/25/15 2:18 AM) CO2 [24-32 mEq/L] 30 mEq/L (10/25/15 2:18 AM) AGAP [10.0-20.0 11.5 mEq/L mEq/L] (10/25/15 2:18 AM) CHEM PANEL Most recent to 1 oldest [Reference Range]: Creatinine Lvl 0.58 mg/dL [0.50-1.40 mg/dL] (10/25/15 2:18 AM) eGFR 91 mL/min/1.73m2 1 *NA* (10/25/15 2:18 AM) BUN [7-22 mg/dL] 8 mg/dL (10/25/15 2:18 AM) B/C Ratio [6-25] 14 (10/25/15 2:18 AM) Glucose Lvl [70-99 110 mg/dL mg/dL] *HI* (10/25/15 2:18 AM) Total Protein 7.4 g/dL [6.4-8.4 g/dL] (10/25/15 2:18 AM) Albumin Lvl [3.5-5.0 3.7 g/dL g/dL] (10/25/15 2:18 AM) Globulin [2.7-4.2 3.7 g/dL g/dL] (10/25/15 2:18 AM) A/G Ratio [0.7-1.6] 1.0 (10/25/15 2:18 AM) Calcium Lvl 8.5 mg/dL [8.5-10.5 mg/dL] (10/25/15 2:18 AM) ALT [0-65 unit/L] 21 unit/L (10/25/15 2:18 AM) AST [0-37 unit/L] 18 unit/L (10/25/15 2:18 AM) Alk Phos [39-136 97 unit/L unit/L] (10/25/15:18 AM) Bili Total [0.2-1.3 0.4 mg/dL mg/dL] (10/25/15 2:18 AM) Lipase Lvl [73-393 50 unit/L unit/L] *LOW* (10/25/15 2:18 AM) 1Result Comment: The eGFR is calculated [...] 1 oldest [Reference Range]: Total CK [12-191 90 unit/L unit/L] (10/25/15 2:18 AM) CK MB [0.5-3.6 1.7 ng/mL ng/mL] (10/25/15 2:18 AM) CK MB Index 1.9 [0.0-2.5] (10/25/15 2:18 AM) Troponin-I 0.02 ng/mL [0.00-0.40 ng/mL] (10/25/15 2:18 AM) BNP [<=100 pg/mL] 29 pg/mL (10/25/15 2:18 AM) HEMATOLOGY Most recent to 1 oldest [Reference Range]: WBC [3.7-10.4 K/CMM] 11.4 K/CMM *HI* (10/25/15 2:18 AM) RBC [4.20-5.40 4.31 M/CMM M/CMM] (10/25/15 2:18 AM) Hgb [12.0-16.0 g/dL] 12.6 g/dL (10/25/15 2:18 AM) Hct [36.0-48.0 %] 37.6 % (10/25/15:18 AM) MCV [80.0-98.0 fL] 87.2 fL (10/25/15 2:18 AM) MCH [27.0-31.0 pg] 29.2 pg (10/25/15:18 AM) MCHC [32.0-36.0 33.5 g/dL g/dL] (10/25/15 2:18 AM) RDW [11.5-14.5 %] 13.0 % (10/25/15 2:18 AM) Platelet [133-450 319 K/CMM K/CMM] (10/25/15 2:18 AM) MPV [7.4-10.4 fL] 7.1 fL *LOW* (10/25/15 2:18 AM) Segs [45.0-75.0 %] 84.3 % *HI* (10/25/15 2:18 AM) Lymphocytes 9.3 % [20.0-40.0 %] *LOW* (10/25/15 2:18 AM) Monocytes [2.0-12.0 4.3 % %] (10/25/15 2:18 AM) Eosinophils [0.0-4.0 1.7 % %] (10/25/15 2:18 AM) Basophils [0.0-1.0 0.4 % %] (10/25/15 2:18 AM) Segs-Bands # 9.6 K/CMM [1.5-8.1 K/CMM] *HI* (10/25/15 2:18 AM) Lymphocytes # 1.1 K/CMM [1.0-5.5 K/CMM] (10/25/15 2:18 AM) Monocytes # [0.0-0.8 0.5 K/CMM K/CMM] (10/25/15 2:18 AM) Eosinophils # 0.2 K/CMM [0.0-0.5 K/CMM] (10/25/15 2:18 AM) RBC Morph Normal (10/25/15 2:18 AM) Plt Morph Normal (10/25/15 2:18 AM) PT [12.0-14.7 13.3 seconds seconds] (10/25/15 2:18 AM) INR [0.85-1.17] 0.98 (10/25/15 2:18 AM) PTT [22.9-35.8 28.4 seconds seconds] (10/25/15 2:18 AM) Immunizations Given and Recorded Vaccine Date Status Refusal Reason influenza virus vaccine, inactivated1 10/27/13 Given influenza virus vaccine, inactivated2 10/27/13 Given pneumococcal 23-valent vaccine3 07/25/11 Given 1Result Comment: done high dose. Migrated from OBS ; Data migrated from [employer] on 08/30/2014. 2Result Comment: fluzone high dose [[id number]]. Migrated from OBS ; Data migrated from [employer] on 08/30/2014. 3Result Comment: historical. Migrated from OBS ; Data migrated from [employer] on 08/30/2014. Procedures Procedure Date Related Diagnosis Body Site Angioscopy of vein Cataract surgery section Excision of vein Hysterectomy Tubal ligation Social History Social History Type Response Substance Abuse Use: None. Alcohol Never Smoking Status Never smoker; Exposure to Tobacco Smoke None; Cigarette Smoking Last 365 Days No; Reg Smoking Cessation Counseling No Assessment and Plan No data available for this section
--- OUTSIDE RECORDS SUMMARY | 2018-04-01 09:25 | XMS REPORT | Summary of Care ---
Author Author [facility] Organization [facility] Address Unknown Phone Unavailable Encounter GABRIEL Valencia(RJ) [id number] Date(s): 10/28/15 - 10/31/15 [facility] [id number] [place] [address]- Discharge Disposition: Home or Self Care Attending Physician: Adama Melendrez MD Admitting Physician: Adama Melendrez MD Vital Signs 1 2 3 Most recent to oldest [Reference Range]: 162.56 cm (10/28/15 1:01 PM) Height 99 DegF (10/31/15 8:00 PM) 98.8 DegF (10/31/15 3:34 PM) 98.9 DegF (10/31/15 12:00 PM) Temperature Oral [96.4-99.1 DegF] 161/80 mmHg *HI* (10/31/15 8:00 PM) 155/78 mmHg *HI* (10/31/15 3:34 PM) 135/71 mmHg (10/31/15 12:00 PM) Blood Pressure [90-140/60-90 mmHg] 18 BRMIN (10/31/15 8:00 PM) 20 BRMIN (10/31/15 7:55 PM) 18 BRMIN (10/31/15 3:34 PM) Respiratory Rate [14-20 BRMIN] 86 bpm (10/31/15 8:00 PM) 64 bpm (10/31/15 3:34 PM) 65 bpm (10/31/15 12:00 PM) Peripheral Pulse Rate [60-100 bpm] 67.273 kg (10/28/15 1:01 PM) Weight 25.46 m2 (10/28/15 1:01 PM) Body Mass Index Problem List Condition Effective Dates Status Health Status Informant Acute bronchitis1, 2 08/08/13 Resolved Allergic rhinitis3 05/02/13 Active Arthritis(Confirmed) Active Arthritis(Confirmed) Active Asthma4 01/28/13 Active Backache(Confirmed) Active Benign essential 07/09/12 Active hypertension5 Child examination Resolved finding6 Chronic back pain7 02/16/59 Active Chronic headache 05/02/13 Active disorder8 Evaluation finding9 Resolved Gastritis(Confirmed) Resolved Gastroesophageal 08/08/13 Active reflux vfizcpb09 GERD Resolved (gastroesophageal reflux disease)(Confirmed) Gynecologic Resolved mzsvpadsmao23 HTN Active (hypertension)(Confi rmed) HTN - Resolved Hypertension(Confirm ed) Hyperlipidemia(Confi Active rmed) Hyperlipidemia(Confi Active rmed) Hypertension(Confirm Active ed) Impaired fasting 01/16/13 Resolved jtwufcnji05 Impaired glucose 01/16/13 Active nvfdbqtow10 Influenza 10/27/13 Resolved nhiwzmpkwsd89, 15 Wjlwztgg26 01/28/13 Active Major depressive 03/24/14 Active zlgqtorv80 Migraine(Confirmed) Active Migraine(Confirmed) Resolved Migraine(Confirmed) Active Mixed 12/28/12 Active vurmciqvyqsptl70 Qrdgpfnztreogq46 Active Oarqktrjsp41 Active Physical examination Resolved ojyqciiyv31 Screening Resolved wmpmohixehi12 Sleep apnea23 10/27/13 Active 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) Ac DVT/embl low ext Resolved NOS(Confirmed) Qveukcx08 05/02/13 Active 1Data migrated from [employer] [...] TAB, Q4H, Dosing Weight 67.273, kg, PRN Taylor n 1-3/Temp > 100.4 F, Start date: 10/28/15 19:17:00 CDT, Duration: 30 day, Stop date: 11/27/15 19:16:00 CDT Notes: Do not exceed 4 gm/day. (Same as: Tylenol) Start Date: 10/28/15 Stop Date: 10/31/15 Status: Discontinued acetaminophen-codeine 300 mg-30 mg oral tablet 1 tab, Route: PO, Drug Form: TAB, Dosing Weight 67.273, kg, Q4H, PRN Pain Score 4-6, Start date: 10/29/15 8:54:00 CDT, Duration: 30 day, Stop date: 11/28/15 8:5 3:00 CDT Notes: Do not exceed 4gm/day of acetaminophen. (Same as: Tylenol with Codeine # 3) Start Date: 10/29/15 Stop Date: 10/31/15 Status: Discontinued acetaminophen-codeine 300 mg-30 mg oral tablet 1 tab, PO, Q4H, PRN Pain Score 4-6, X 14 day, # 84 tab, 0 Refill(s) Start Date: 10/31/15 Stop Date: 11/14/15 Status: Ordered acetaminophen/butalbital/caffeine 325 mg-50 mg-40 mg oral tablet 1 tab, Route: PO, Drug Form: TAB, Dosing Weight 67.273, kg, Q4H, PRN Headache 1- 5, Start date: 10/29/15 8:54:00 CDT, Duration: 30 day, Stop date: 11/28/15 8:53: 00 CDT Start Date: 10/29/15 Stop Date: 10/31/15 Status: Discontinued Afrin 0.05% nasal spray 2 spray, Route: NASAL, Drug Form: SPRY, Dosing Weight 67.273, kg, BID, PRN Conge stion, Start date: 10/29/15 8:55:00 CDT, Duration: 30 day, Stop date: 11/28/15 8 :54:00 CDT Notes: (Same as: Afrin) Start Date: 10/29/15 Stop Date: 10/31/15 Status: Discontinued albuterol 0.083% inhalation solution 2.49 mg, 3 mL, Route: NEB, Drug form: SOLN, RQ4H, Dosing Weight 67.273, kg, Star t date: 10/28/15 23:00:00 CDT, Duration: 30 day, Stop date: 11/27/15 19:00:00 CD T, Pediatric Dosing Notes: SEE RT DOCUMENTATION (Same as: Proventil) Start Date: 10/28/15 Stop Date: 10/28/15 Status: Canceled albuterol 90 mcg/inh inhalation aerosol 2 puff, Route: INHALATION, Drug Form: AERO/A, Dosing Weight 67.273, kg, QID, PRN Wheezing, Start date: 10/29/15 8:54:00 CDT, Duration: 30 day, Stop date: 8:53:00 CDT Notes: Albuterol 90 microgram/inh 8gm HFAWASTE: Aerosol - Return to Pharmacy [facility] as: Emma Jin Start Date: 10/29/15 Stop Date: 10/31/15 Status: Discontinued alendronate 70 mg, Route: PO, Drug form: TAB, Q7D, Dosing Weight 67.273, kg, Start date: 01/31 9:00:00 CDT, Duration: 30 day, Stop date: 11/26/15 9:00:00 CDT Start Date: 10/29/15 Stop Date: 10/31/15 Status: Discontinued Ambien 5 mg, 1 tab, Route: PO, Drug form: TAB, Bedtime, Dosing Weight 67.273, kg, PRN I nsomnia, Start date: 10/28/15 21:31:00 CDT, Duration: 30 day, Stop date: 6 21:30:00 CDT Notes: (Same As: Ambien) Start Date: 10/28/15 Stop Date: 10/31/15 Status: Discontinued amLODIPine 10 mg, 2 tab, Route: PO, Drug form: TAB, Daily, Dosing Weight 67.273, kg, Start date: 10/29/15 9:00:00 CDT, Duration: 30 day, Stop date: 11/27/15 9:00:00 CDT Notes: (Same as: Norvasc) Start Date: 10/29/15 Stop Date: 10/29/15 Status: Discontinued aspirin 81 mg tablet, enteric coated 81 mg, 1 tab, Route: PO, Drug form: ECTAB, Daily, Dosing Weight 67.273, kg, Star t date: 10/29/15 9:00:00 CDT, Duration: 30 day, Stop date: 11/27/15 9:00:00 CDT Notes: Do not crush or chew.(Same As: Ecotrin) Start Date: 10/29/15 Stop Date: 10/31/15 Status: Discontinued atorvastatin 40 mg, 1 tab, Route: PO, Drug form: TAB, Bedtime, Dosing Weight 67.273, kg, Star t date: 10/29/15 21:00:00 CDT, Duration: 30 day, Stop date: 11/27/15 21:00:00 CD T Notes: (Same as: Lipitor) Start Date: 10/29/15 Stop Date: 10/31/15 Status: Discontinued dicyclomine 10 mg, 1 cap, Route: PO, Drug form: CAP, QID-Before Meals, Dosing Weight 67.273, kg, PRN Cramps, Start date: 10/29/15 8:54:00 CDT, Duration: 30 day, Stop date: 11/28/15 8:53:00 CDT Notes: (Same as: Bentyl) Start Date: 10/29/15 Stop Date: 10/31/15 Status: Discontinued digoxin 125 mcg (0.125 mg) oral tablet 125 microgram, 1 tab, Route: PO, Drug form: TAB, Daily, Dosing Weight 67.273, kg , Start date: 10/29/15 9:00:00 CDT, Duration: 30 day, Stop date: 11/27/15 9:00:0 0 CDT Notes: Take on an Empty Stomach (Same as: Lanoxin) Start Date: 10/29/15 Stop Date: 10/29/15 Status: Discontinued docusate 100 mg, 1 cap, Route: PO, Drug form: CAP, BID, Dosing Weight 67.273, kg, PRN Con stipation, Start date: 10/28/15 19:17:00 CDT, Duration: 30 day, Stop date: 11/26 19:16:00 CDT Notes: (Same as: Colace) (Do Not Crush) Start Date: 10/28/15 Stop Date: 10/31/15 Status: Discontinued DuoNeb inhalation solution 3 ml, Route: INHALATION, Drug Form: SOLN, Dosing Weight 67.273, kg, PRN, PRN Res piratory Protocol, Start date: 10/28/15 19:17:00 CDT, Duration: 30 day, Stop brandy e: 11/27/15 19:16:00 CDT Notes: (Same as: Duoneb) Start Date: 10/28/15 Stop Date: 10/31/15 Status: Discontinued DuoNeb inhalation solution 3 ml, Route: NEB, Drug Form: SOLN, Dosing Weight 67.273, kg, PRN, PRN Respirator y Protocol, Start date: 10/28/15 13:06:00 CDT, Duration: 30 day, Stop date: 11/16 03/03 13:05:00 CDT Notes: (Same as: Duoneb) Start Date: 10/28/15 Stop Date: 10/29/15 Status: Voided With Results famotidine 20 mg, 1 tab, Route: PO, Drug form: TAB, BID, Dosing Weight 67.273, kg, Start da te: 10/29/15 9:00:00 CDT, Duration: 30 day, Stop date: 11/27/15 17:00:00 CDT Notes: (Same as: Pepcid) Start Date: 10/29/15 Stop Date: 10/31/15 Status: Discontinued Fioricet 300 mg-50 mg-40 mg oral capsule 1 cap, PO, Q4H, PRN Headache 1-5, X 14 day, # 84 cap, 0 Refill(s), Pharmacy: [facility] [id number] Start Date: 10/31/15 Stop Date: 11/14/15 Status: Ordered furosemide 20 mg oral tablet 20 mg, 1 tab, Route: PO, Drug form: TAB, Daily, Dosing Weight 67.273, kg, Start date: 10/29/15 9:00:00 CDT, Duration: 30 day, Stop date: 11/27/15 9:00:00 CDT Notes: (Same as: Lasix) May cause GI upset. Give with food or milk. Start Date: 10/29/15 Stop Date: 10/29/15 Status: Discontinued hydrALAZINE 10 mg, 0.5 mL, Route: IVP, Drug form: INJ, Q6H, Dosing Weight 67.273, kg, PRN Hy pertension, 10mg IV q6h prn SBP>160mmHg, Start date: 10/30/15 15:30:00 CDT, Duration: 30 day, Stop date: 11/29/15 15:29:00 CDT Notes: (Same as: Apresoline)Push over 5 minutes Start Date: 10/30/15 Stop Date: 10/31/15 Status: Discontinued Imdur 30 mg, 1 tab, Route: PO, Drug form: ERTAB, [id number], Dosing Weight 67.273, kg, St art date: 10/28/15 22:00:00 CDT, Duration: 30 day, Stop date: 11/26/15 22:00:00 CDT Notes: (Same as:Imdur)"Do Not Crush" Take on empty stomach/ full glass of water . Do not crush Start Date: 10/28/15 Stop Date: 10/31/15 Status: Discontinued isosorbide mononitrate 30 mg oral tablet, extended release 30 mg=1 tab, PO, [id number], # 30 tab, 0 Refill(s), Pharmacy: [facility] [id number] Start Date: 10/31/15 Stop Date: 11/30/15 Status: Ordered lisinopril 10 mg, 1 tab, Route: PO, Drug form: TAB, Daily, Dosing Weight 67.273, kg, Start date: 10/30/15 16:00:00 CDT, Duration: 30 day, Stop date: 11/29/15 9:00:00 CDT Notes: (Same as: Guera Cruz) Start Date: 10/30/15 Stop Date: 10/31/15 Status: Discontinued lisinopril 10 mg oral tablet 10 mg=1 tab, PO, Daily, # 30 tab, 0 Refill(s), Pharmacy: [id number] Start Date: 10/31/15 Stop Date: 11/30/15 Status: Ordered LORazepam 1 mg, 1 tab, Route: PO, Drug form: TAB, Q6H, Dosing Weight 67.273, kg, PRN Anxie ty, Start date: 10/29/15 8:55:00 CDT, Duration: 30 day, Stop date: 11/28/15 8:54 :00 CDT Notes: (Same as: Ativan) Start Date: 10/29/15 Stop Date: 10/31/15 Status: Discontinued Lovenox 40 mg, 0.4 mL, Route: SUB-Q, Drug form: INJ, [id number], Dosing Weight 67.273, kg, Start date: 10/28/15 22:00:00 CDT, Duration: 30 day, Stop date: 11/26/15 22:00: 00 CDT Notes: (Same as: Lovenox) Start Date: 10/28/15 Stop Date: 10/31/15 Status: Discontinued methylPREDNISolone SODium SUCCinate 125 mg, 2 mL, Route: IVP, Drug form: INJ, ONCE, Dosing Weight 67.273, kg, Priori ty: STAT, Start date: 10/28/15 17:04:00 CDT, Stop date: 10/28/15 17:04:00 CDT Notes: (Same as:Solu-MEDROL, A-Methapred) Start Date: 10/28/15 Stop Date: 10/28/15 Status: Completed metoclopramide 5 mg oral tablet 5 mg, 1 tab, Route: PO, Drug form: TAB, Before Meals & Bedtime, Dosing Weight 67.273, kg, PRN Nausea, Start date: 10/29/15 8:55:00 CDT, Duration: 30 day, Stop date: 11/28/15 8:54:00 CDT Notes: (Same as: Reglan) Take 30 min before meals Start Date: 10/29/15 Stop Date: 10/31/15 Status: Discontinued mirtazapine 15 mg oral tablet 7.5 mg=0.5 tab, PO, Bedtime, # 15 tab, 0 Refill(s), [place]: [facility] [place] [id number] Start Date: 10/31/15 Stop Date: 11/30/15 Status: Ordered morphine Sulfate 2 mg, 1 mL, Route: IVP, Drug form: INJ, Q4H, Dosing Weight 67.273, kg, PRN Pain Score 7-10, Start date: 10/28/15 19:17:00 CDT, Duration: 30 day, Stop date: 11/16 03/03 19:16:00 CDT Notes: (Same as:MORPhine Sulfate) Start Date: 10/28/15 Stop Date: 10/31/15 Status: Discontinued morphine Sulfate 2 mg, Route: IVP, ONCE, Dosing Weight 67.273, kg, Priority: STAT, Start date: 16:31:00 CDT, Stop date: 10/28/15 16:31:00 CDT Start Date: 10/28/15 Stop Date: 10/28/15 Status: Completed nitroglycerin 0.4 mg sublingual tablet 0.4 mg, 1 tab, Route: SL, Drug form: TAB, ONCE, Dosing Weight 67.273, kg, PRN Ch est Pain, Start date: 10/28/15 21:56:00 CDT, Duration: 1 doses or times, Stop da te: Limited # of times Notes: (Same as:Nitroquick, Nitrostat)"Do Not Crush" Sublingual tablet Start Date: 10/28/15 Stop Date: 10/29/15 Status: Discontinued nitroglycerin SL Tab 0.4 mg, 1 tab, Route: SL, Drug form: TAB, Q5Min, Dosing Weight 67.273, kg, PRN C hest Pain, Start date: 10/29/15 15:45:00 CDT, Duration: 3 doses or times, Stop d ate: Limited # of times Notes: (Same as:Nitroquick, Nitrostat)"Do Not Crush" Sublingual tablet Start Date: 10/29/15 Stop Date: 10/31/15 Status: Discontinued ondansetron 4 mg, 2 mL, Route: IVP, Drug form: INJ, Q6H, Dosing Weight 67.273, kg, PRN Nause a & Vomiting, Start date: 10/28/15 19:17:00 CDT, Duration: 30 day, Stop date: 11/27/15 19:16:00 CDT Notes: (Same as: Rosy) MEDICATION WASTE Product Size: 4 mgProduct Was guillaume: ___ mg Start Date: 10/28/15 Stop Date: 10/31/15 Status: Discontinued ondansetron 4 mg, 1 tab, Route: PO, Drug form: TAB, Q8H, Dosing Weight 67.273, kg, PRN Nause a & Vomiting, Start date: 10/29/15 15:45:00 CDT, Duration: 30 day, Stop date: 11/28/15 15:44:00 CDT Notes: (Same as: Zofran) Start Date: 10/29/15 Stop Date: 10/31/15 Status: Discontinued Please clarify what day of the week Patient takes Fosamax Please clarify what day of the week Patient takes Fosamax, Reminder, Drug form: MISC, Route: MISC, Daily, 10/29/15 10:00:00 CDT, Duration: 30 day, Stop date: 9:00:00 CDT Start Date: 10/29/15 Stop Date: 10/31/15 Status: Discontinued pneumococcal 13-valent vaccine 0.5 mL, Route: IM, Drug Form: INJ, Daily, Start date: 10/30/15 9:00:00 CDT, Stop date: 10/30/15 13:00:00 CDT Notes: Lightly roll vial (DO NOT SHAKE) before administration. (Same as: Prevna r 13) Start Date: 10/30/15 Stop Date: 10/30/15 Status: Completed Remeron 7.5 mg, 0.5 tab, Route: PO, Drug form: TAB, Bedtime, Dosing Weight 67.273, kg, S tart date: 10/30/15 21:00:00 CDT, Duration: 30 day, Stop date: 11/28/15 21:00:00 CDT Notes: (Same as:Remeron) Start Date: 10/30/15 Stop Date: 10/31/15 Status: Discontinued Saline Flush 0.9% 10 mL, Route: IVP, Drug Form: INJ, Dosing Weight 67.273, kg, PRN, PRN Line Flush , Start date: 10/28/15 13:06:00 CDT, Duration: 30 day, Stop date: 11/27/15 13:05 :00 CDT Notes: (Same as: BD Posiflush) Start Date: 10/28/15 Stop Date: 10/28/15 Status: Discontinued Sodium Chloride 0.9% (Bolus) IV 500 mL, 500 ml/hr, Infuse Over: 1 hr, Route: IV, 500, Drug form: INJ, ONCE, Prio rity: STAT, Dosing Weight 67.273 kg, Start date: 10/28/15 13:06:00 CDT, Duration : 1 doses or times, Stop date: 10/28/15 13:06:00 CDT Start Date: 10/28/15 Stop Date: 10/28/15 Status: Completed Sodium Chloride 0.9% (Bolus) IV 500 mL, 500 ml/hr, Infuse Over: 1 hr, Route: IV, 500, Drug form: INJ, ONCE, Prio rity: STAT, Dosing Weight 67.273 kg, Start date: 10/28/15 14:41:00 CDT, Duration : 1 doses or times, Stop date: 10/28/15 14:41:00 CDT Start Date: 10/28/15 Stop Date: 10/28/15 Status: Completed sodium chloride 0.9% 1000 ml INJ 1,000 mL 1,000 mL, Rate: 75 ml/hr, Infuse over: 13.3 hr, Route: IV, Dosing Weight 67.273 kg, Total Volume: 1,000, Start date: 10/31/15 12:12:00 CDT, Duration: 30 day, St op date: 11/30/15 12:11:00 CDT Start Date: 10/31/15 Stop Date: 10/31/15 Status: Discontinued sodium chloride 0.9% 1000 ml INJ 1,000 mL 1,000 mL, Rate: 75 ml/hr, Infuse over: 13.3 hr, Route: IV, Dosing Weight 67.273 kg, Total Volume: 1,000, Start date: 10/28/15 19:17:00 CDT, Duration: 30 day, St op date: 11/27/15 19:16:00 CDT Start Date: 10/28/15 Stop Date: 10/30/15 Status: Discontinued Solu-MEDROL 40 mg, 1 mL, Route: IVP, Drug form: INJ, Q12H, Dosing Weight 67.273, kg, Start d ate: 10/29/15 9:00:00 CDT, Duration: 30 day, Stop date: 11/27/15 21:00:00 CDT Notes: (Same as:Solu-MEDROL, A-Methapred) Start Date: 10/29/15 Stop Date: 10/28/15 Status: Canceled Symbicort 160/4.5 inhalation aerosol with adapter 2 inhalation, Route: INHALATION, Drug Form: AERO/A, Dosing Weight 67.273, kg, BI D, Start date: 10/29/15 9:00:00 CDT, Duration: 30 day, Stop date: 11/27/15 17:00 :00 CDT Notes: (Same as: Symbicort)WASTE: Aerosol - Return to Pharmacy Start Date: 10/29/15 Stop Date: 10/31/15 Status: Discontinued Toprol-XL 25 mg oral tablet, extended release 25 mg, 1 tab, Route: PO, Drug form: ERTAB, Daily, Start date: 10/29/15 13:00:00 CDT, Duration: 30 day, Stop date: 11/28/15 9:00:00 CDT Notes: (Same as: Toprol XL) Do Not Crush Start Date: 10/29/15 Stop Date: 10/31/15 Status: Discontinued tramadol 50 mg, 1 tab, Route: PO, Drug form: TAB, Q6H, Dosing Weight 67.273, kg, PRN Pain Score 1-3, Start date: 10/29/15 8:55:00 CDT, Duration: 30 day, Stop date: 11/27 8:54:00 CDT Notes: Not to exceed 400mg/day. (Same As: Ultram) Start Date: 10/29/15 Stop Date: 10/31/15 Status: Discontinued Zofran 4 mg, Route: IVP, Drug form: INJ, ONCE, Dosing Weight 67.273, kg, Priority: STAT , Start date: 10/28/15 16:32:00 CDT, Stop date: 10/28/15 16:32:00 CDT Start Date: 10/28/15 Stop Date: 10/28/15 Status: Completed Results ELECTROLYTES 1 2 3 Most recent to oldest [Reference Range]: 140 mEq/L (10/31/15 6:02 AM) 139 mEq/L (10/29/15 1:03 AM) 134 mEq/L *LOW* (10/28/15 2:06 PM) Sodium Lvl [135-145 mEq/L] 3.6 mEq/L (10/31/15 6:02 AM) 3.9 mEq/L (10/29/15 1:03 AM) 4.0 mEq/L (10/28/15 2:06 PM) Potassium Lvl [3.5-5.1 mEq/L] 104 mEq/L (10/31/15 6:02 AM) 108 mEq/L (10/29/15 1:03 AM) 99 mEq/L (10/28/15 2:06 PM) Chloride Lvl [95-109 mEq/L] 29 mEq/L (10/31/15 6:02 AM) 25 mEq/L (10/29/15 1:03 AM) 26 mEq/L (10/28/15 2:06 PM) CO2 [24-32 mEq/L] 10.6 mEq/L (10/31/15 6:02 AM) 9.9 mEq/L *LOW* (10/29/15 1:03 AM) 13.0 mEq/L (10/28/15 2:06 PM) AGAP [10.0-20.0 mEq/L] CHEM PANEL 1 2 3 Most recent to oldest [Reference Range]: 0.57 mg/dL (10/31/15 6:02 AM) 0.66 mg/dL (10/29/15 1:03 AM) 0.74 mg/dL (10/28/15 2:06 PM) Creatinine Lvl [0.50-1.40 mg/dL] 92 mL/min/1.73m2 1 *NA* (10/31/15 6:02 AM) 88 mL/min/1.73m2 2 *NA* (10/29/15 1:03 AM) 80 mL/min/1.73m2 3 *NA* (10/28/15 2:06 PM) eGFR 11 mg/dL (10/31/15 6:02 AM) 10 mg/dL (10/29/15 1:03 AM) 13 mg/dL (10/28/15 2:06 PM) BUN [7-22 mg/dL] 18 (10/28/15 2:06 PM) B/C Ratio [6-25] 89 mg/dL (10/31/15 6:02 AM) 164 mg/dL *HI* (10/29/15 1:03 AM) 178 mg/dL *HI* (10/28/15 2:06 PM) Glucose Lvl [70-99 mg/dL] 6.7 g/dL (10/28/15 2:06 PM) Total Protein [6.4-8.4 g/dL] 3.3 g/dL *LOW* (10/28/15 2:06 PM) Albumin Lvl [3.5-5.0 g/dL] 3.4 g/dL (10/28/15 2:06 PM) Globulin [2.7-4.2 g/dL] 1.0 (10/28/15 2:06 PM) A/G Ratio [0.7-1.6] 8.5 mg/dL (10/31/15 6:02 AM) 8.4 mg/dL *LOW* (10/29/15 1:03 AM) 8.4 mg/dL *LOW* (10/28/15 2:06 PM) Calcium Lvl [8.5-10.5 mg/dL] 2.4 mg/dL (10/31/15 6:02 AM) Magnesium Lvl [1.8-2.4 mg/dL] 18 unit/L (10/28/15 2:06 PM) ALT [0-65 unit/L] 8 unit/L (10/28/15 2:06 PM) AST [0-37 unit/L] 80 unit/L (10/28/15 2:06 PM) Alk Phos [39-136 unit/L] 0.2 mg/dL (10/28/15 2:06 PM) Bili Total [0.2-1.3 mg/dL] 1Result Comment: [...] 3 Most recent to oldest [Reference Range]: 32 unit/L (10/30/15 3:52 AM) 37 unit/L (10/29/15 9:40 PM) 35 unit/L (10/29/15 7:33 AM) Total CK [12-191 unit/L] 1.1 ng/mL (10/29/15 7:33 AM) 1.2 ng/mL (10/29/15 1:03 AM) 0.9 ng/mL (10/28/15 7:28 PM) CK MB [0.5-3.6 ng/mL] 3.1 *HI* (10/29/15 7:33 AM) 2.9 *HI* (10/29/15 1:03 AM) 1.3 (10/28/15 7:28 PM) CK MB Index [0.0-2.5] 0.03 ng/mL (10/29/15 7:33 AM) 0.03 ng/mL (10/29/15 1:03 AM) 0.03 ng/mL (10/29/15 1:03 AM) Troponin-I [0.00-0.40 ng/mL] 49 pg/mL (10/28/15 2:06 PM) BNP [<=100 pg/mL] LIPIDS 1 2 3 Most recent to oldest [Reference Range]: 2.78 *LOW* (10/29/15 7:33 AM) CHD Risk [3.90-5.80] 178 mg/dL (10/29/15 7:33 AM) Chol [<=199 mg/dL] 69 mg/dL (10/29/15 7:33 AM) Trig [<=149 mg/dL] 64 mg/dL (10/29/15 7:33 AM) HDL [>=61 mg/dL] 100 mg/dL *HI* (10/29/15 7:33 AM) LDL (Calculated) [<=99 mg/dL] 14 *NA* (10/29/15 7:33 AM) VLDL SPECIAL CHEMISTRY 1 2 3 Most recent to oldest [Reference Range]: 6.0 % *HI* (10/29/15 7:33 AM) Hgb A1C [<=5.6 %] TOXICOLOGY 1 2 3 Most recent to oldest [Reference Range]: 0.6 ng/mL *LOW* (10/29/15 7:33 AM) Digoxin Lvl [0.8-2.0 ng/mL] URINE AND STOOL 1 2 3 Most recent to oldest [Reference Range]: Clear (10/28/15 4:26 PM) UA Turbidity [Clear] Ltyellow *NA* (10/28/15 4:26 PM) UA Color 7.0 (10/28/15 4:26 PM) UA pH [5.0-8.0] 1.008 (10/28/15 4:26 PM) UA Spec Grav [<=1.030] Negative mg/dL *NA* (10/28/15 4:26 PM) UA Glucose [Negative mg/dL] Negative (10/28/15 4:26 PM) UA Blood [Negative] Negative mg/dL *NA* (10/28/15 4:26 PM) UA Ketones [Negative mg/dL] Negative mg/dL (10/28/15 4:26 PM) UA Protein [Negative mg/dL] <=1.0 mg/dL *NA* (10/28/15 4:26 PM) UA Urobilinogen [0.1-1.0 mg/dL] Negative *NA* (10/28/15 4:26 PM) UA Bili [Negative] Small *ABN* (10/28/15 4:26 PM) UA Leuk Est [Negative] Negative (10/28/15 4:26 PM) UA Nitrite [Negative] 1 /HPF (10/28/15 4:26 PM) UA WBC [0-5 /HPF] 2 /HPF (10/28/15 4:26 PM) UA RBC [0-2 /HPF] Occasional /LPF *NA* (10/28/15 4:26 PM) UA Sq Epi [Few /LPF] IMMUNOLOGY 1 2 3 Most recent to oldest [Reference Range]: 5.0 mg/L *HI* (10/29/15 7:33 AM) CRP [<=2.9 mg/L] HEMATOLOGY 1 2 3 Most recent to oldest [Reference Range]: 10.1 K/CMM (10/31/15 6:02 AM) 9.3 K/CMM (10/29/15 1:03 AM) 9.6 K/CMM (10/28/15 2:06 PM) WBC [3.7-10.4 K/CMM] 3.76 M/CMM *LOW* (10/31/15 6:02 AM) 4.03 M/CMM *LOW* (10/29/15 1:03 AM) 4.01 M/CMM *LOW* (10/28/15 2:06 PM) RBC [4.20-5.40 M/CMM] 11.3 g/dL *LOW* (10/31/15 6:02 AM) 11.8 g/dL *LOW* (10/29/15 1:03 AM) 11.8 g/dL *LOW* (10/28/15 2:06 PM) Hgb [12.0-16.0 g/dL] 33.1 % *LOW* (10/31/15 6:02 AM) 35.2 % *LOW* (10/29/15 1:03 AM) 35.1 % *LOW* (10/28/15 2:06 PM) Hct [36.0-48.0 %] 87.9 fL (10/31/15 6:02 AM) 87.3 fL (10/29/15 1:03 AM) 87.5 fL (10/28/15 2:06 PM) MCV [80.0-98.0 fL] 30.0 pg (10/31/15 6:02 AM) 29.3 pg (10/29/15 1:03 AM) 29.3 pg (10/28/15 2:06 PM) MCH [27.0-31.0 pg] 34.1 g/dL (10/31/15 6:02 AM) 33.5 g/dL (10/29/15 1:03 AM) 33.5 g/dL (10/28/15 2:06 PM) MCHC [32.0-36.0 g/dL] 13.2 % (10/31/15 6:02 AM) 13.2 % (10/29/15 1:03 AM) 13.3 % (10/28/15 2:06 PM) RDW [11.5-14.5 %] 308 K/CMM (10/31/15 6:02 AM) 351 K/CMM (10/29/15 1:03 AM) 338 K/CMM (10/28/15 2:06 PM) Platelet [133-450 K/CMM] 7.1 fL *LOW* (10/31/15 6:02 AM) 7.2 fL *LOW* (10/29/15 1:03 AM) 7.3 fL *LOW* (10/28/15 2:06 PM) MPV [7.4-10.4 fL] 67.7 % (10/31/15 6:02 AM) 94.4 % *HI* (10/29/15 1:03 AM) 86.7 % *HI* (10/28/15 2:06 PM) Segs [45.0-75.0 %] 20.0 % (10/31/15 6:02 AM) 3.9 % *LOW* (10/29/15 1:03 AM) 7.5 % *LOW* (10/28/15 2:06 PM) Lymphocytes [20.0-40.0 %] 10.2 % (10/31/15 6:02 AM) 1.5 % *LOW* (10/29/15 1:03 AM) 5.6 % (10/28/15 2:06 PM) Monocytes [2.0-12.0 %] 1.4 % (10/31/15 6:02 AM) Eosinophils [0.0-4.0 %] 0.7 % (10/31/15 6:02 AM) 0.2 % (10/29/15 1:03 AM) 0.2 % (10/28/15 2:06 PM) Basophils [0.0-1.0 %] 6.8 K/CMM (10/31/15 6:02 AM) 8.8 K/CMM *HI* (10/29/15 1:03 AM) 8.3 K/CMM *HI* (10/28/15 2:06 PM) Segs-Bands # [1.5-8.1 K/CMM] 2.0 K/CMM (10/31/15 6:02 AM) 0.4 K/CMM *LOW* (10/29/15 1:03 AM) 0.7 K/CMM *LOW* (10/28/15 2:06 PM) Lymphocytes # [1.0-5.5 K/CMM] 1.0 K/CMM *HI* (10/31/15 6:02 AM) 0.1 K/CMM (10/29/15 1:03 AM) 0.5 K/CMM (10/28/15 2:06 PM) Monocytes # [0.0-0.8 K/CMM] 0.1 K/CMM (10/31/15 6:02 AM) Eosinophils # [0.0-0.5 K/CMM] 0.1 K/CMM (10/31/15 6:02 AM) Basophils # [0.0-0.2 K/CMM] Normal (10/31/15 6:02 AM) RBC Morph Normal (10/31/15 6:02 AM) Plt Morph 16 mm/hr (10/29/15 5:21 PM) Sed Rate [0-20 mm/hr] 0.33 ug/mL FEU *NA* (10/28/15 2:06 PM) D-Dimer Immunizations Given and Recorded Vaccine Date Status Refusal Reason influenza virus vaccine, inactivated1 10/27/13 Given influenza virus vaccine, inactivated2 10/27/13 Given pneumococcal 13-valent vaccine 10/30/15 Given pneumococcal 23-valent vaccine3 07/25/11 Given 1Result Comment: done high dose. Migrated from OBS ; Data migrated from Before the Call on 08/30/2014. 2Result Comment: fluzone high dose [[id number]]. Migrated from OBS ; Data migrated from Before the Call on 08/30/2014. 3Result Comment: historical. Migrated from OBS ; Data migrated from Before the Call on 08/30/2014. Procedures Procedure Date Related Diagnosis Body Site Angioscopy of vein Cataract surgery section Excision of vein Hysterectomy Tubal ligation Social History Social History Type Response Substance Abuse Use: None. Alcohol Never Smoking Status Never smoker; Exposure to Tobacco Smoke None; Cigarette Smoking Last 365 Days No; Reg Smoking Cessation Counseling No Assessment and Plan Extracted from: Title: Clinical Document Author: Edison Green MD Date: 10/31/15 Psychiatry Progress Note. EDISON GREEN M.D. Board Certified in Adult and Geriatric Psychiatry. Patient seen, Events noted. SUBJECTIVE : Feels fair. OBJECTIVE : She is alert, awake, mood fair, anxious. Allergies: NKDA Labs (Last four charted values) WBC 10.1(SEP 14)9.3(SEP 12)9.6(SEP 11) Hgb L 11.3(SEP 14)L 11.8(SEP 12)L 11.8(SEP 11) Hct L 33.1(SEP 14)L 35.2(SEP 12)L 35.1(SEP 11) Plt 308(SEP 14)351(SEP 12)338(SEP 11) Na 140(SEP 14)139(SEP 12)L 134(SEP 11) K 3.6(SEP 14)3.9(SEP 12)4.0(SEP 11) CO2 29(SEP 14)25(SEP 12)26(SEP 11) Cl 104(SEP 14)108(SEP 12)99(SEP 11) Cr 0.57(SEP 14)0.66(SEP 12)0.74(SEP 11) BUN 11(SEP 14)10(SEP 12)13(SEP 11) Glucose Random 89(SEP 14)H 164(SEP 12)H 178(SEP 11) Mg 2.4(SEP 14) Ca 8.5(SEP 14)L 8.4(SEP 12)L 8.4(SEP 11) Troponin 0.03(SEP 12)0.03(SEP 12)0.03(SEP 12)0.03(SEP 11) CK MB 1.1(SEP 12)1.2(SEP 12)0.9(SEP 11)0.9(SEP 11) Total CK 32(SEP 13)37(SEP 12)35(SEP 12)41(SEP 12) MENTAL STATUS EXAM: Alert, awake, mood fair. ASSESSMENT: AXIS I: Adjustment disorder with anxiety and depression. PLAN: Continue remeron 7.5 mg po bedtime. Supportive therapy to improve coping skills.
--- OUTSIDE RECORDS SUMMARY | 2018-04-01 09:25 | XMS REPORT | Summary of Care ---
Author Author [facility] Organization [facility] Address Unknown Phone Unavailable Encounter GABRIEL Valencia(RJ) [id number] Date(s): 10/19/15 - 10/20/15 [facility] [address] [place] [address]- Discharge Disposition: Home or Self Care Attending Physician: Yosvany Hunt MD Admitting Physician: Yosvany Hunt MD Vital Signs 1 2 3 Most recent to oldest [Reference Range]: 162.56 cm (10/19/15 11:44 PM) Height 98.7 DegF (10/20/15 11:08 AM) 98 DegF (10/20/15 10:02 AM) 98.2 DegF (10/19/15 11:44 PM) Temperature Oral [96.4-99.1 DegF] 173/58 mmHg *HI* (10/20/15 2:18 PM) 121/101 mmHg (10/20/15 12:58 PM) 191/71 mmHg *HI* (10/20/15 12:30 PM) Blood Pressure [90-140/60-90 mmHg] 18 BRMIN (10/20/15 12:58 PM) 16 BRMIN (10/20/15 12:30 PM) 16 BRMIN (10/20/15 11:08 AM) Respiratory Rate [14-20 BRMIN] 80 bpm (10/20/15 11:08 AM) 65 bpm (10/20/15 6:30 AM) 70 bpm (10/20/15 4:58 AM) Peripheral Pulse Rate [60-100 bpm] 62.727 kg (10/19/15 11:44 PM) Weight 23.74 m2 (10/19/15 11:44 PM) Body Mass Index Problem List Condition Effective Dates Status Health Status Informant Acute bronchitis1, 2 08/08/13 Resolved Allergic rhinitis3 05/02/13 Active Arthritis(Confirmed) Active Arthritis(Confirmed) Active Asthma4 01/28/13 Active Backache(Confirmed) Active Benign essential 07/09/12 Active hypertension5 Child examination Resolved finding6 Chronic back pain7 02/16/59 Active Chronic headache 05/02/13 Active disorder8 Evaluation finding9 Resolved Gastritis(Confirmed) Resolved Gastroesophageal 08/08/13 Active reflux GERD Resolved (gastroesophageal reflux disease)(Confirmed) Gynecologic Resolved zsxvphrbucl15 HTN Active (hypertension)(Confi rmed) HTN - Resolved Hypertension(Confirm ed) Hyperlipidemia(Confi Active rmed) Hyperlipidemia(Confi Active rmed) Hypertension(Confirm Active ed) Impaired fasting 01/16/13 Resolved Impaired glucose 01/16/13 Active itmkyukxy58 Influenza 10/27/13 Resolved , 15 Exqvqavh09 01/28/13 Active Major depressive 03/24/14 Active ibstkceh30 Migraine(Confirmed) Active Migraine(Confirmed) Resolved Migraine(Confirmed) Active Mixed 12/28/12 Active tuuohjpesqxrjf64 Ezliqxgjvtivjd67 Active Mqiwhtzlaw66 Active Physical examination Resolved gucilyvep93 Screening Resolved engirszsqxa49 Sleep apnea23 10/27/13 Active 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) Ac DVT/embl low ext Resolved NOS(Confirmed) Ysxlqrx29 05/02/13 Active 1Data migrated from [employer] [...] 08/23/14. 14Data migrated from [employer] on 7/18/15. 15Data migrated from [employer] on 09/01/14. [...] TAB, Q4H, Dosing Weight 62.727, kg, PRN Remingtona torey 1-5, Start date: 10/20/15 9:47:00 CDT, Duration: 30 day, Stop date: 9:46:00 CDT Notes: Do not exceed 4 gm/day. (Same as: Tylenol) Start Date: 10/20/15 Stop Date: 10/20/15 Status: Discontinued aspirin 324 mg, Route: PO, ONCE, Dosing Weight 62.727, kg, Priority: STAT, Start date: 0 10/20/15 3:30:00 CDT, Stop date: 10/20/15 3:30:00 CDT Start Date: 10/20/15 Stop Date: 10/20/15 Status: Completed aspirin 325 mg tablet 325 mg, 1 tab, Route: PO, Drug form: TAB, Daily, Dosing Weight 62.727, kg, Start date: 10/21/15 9:00:00 CDT, Duration: 30 day, Stop date: 11/19/15 9:00:00 CDT Notes: Take with food. Start Date: 10/21/15 Stop Date: 10/20/15 Status: Canceled cloNIDine 0.1 mg oral tablet 0.1 mg, Route: PO, Drug form: TAB, ONCE, Dosing Weight 62.727, kg, Priority: STA T, Start date: 10/20/15 3:41:00 CDT, Stop date: 10/20/15 3:41:00 CDT Start Date: 10/20/15 Stop Date: 10/20/15 Status: Completed D5W 1/2NS 1,000 mL 1,000 mL, Rate: 75 ml/hr, Infuse over: 13.3 hr, Route: IV, Dosing Weight 62.727 kg, Total Volume: 1,000, Start date: 10/20/15 9:47:00 CDT, Duration: 30 day, Sto p date: 11/19/15 9:46:00 CDT Start Date: 10/20/15 Stop Date: 10/20/15 Status: Discontinued enoxaparin 40 mg, 0.4 mL, Route: SUB-Q, Drug form: INJ, [id number], Dosing Weight 62.727, kg, Start date: 10/20/15 14:00:00 CDT, Duration: 30 day, Stop date: 11/18/15 14:00: 00 CDT Notes: (Same as: Lovenox) Start Date: 10/20/15 Stop Date: 10/20/15 Status: Discontinued morphine Sulfate 4 mg, Route: IVP, ONCE, Dosing Weight 62.727, kg, Priority: STAT, Start date: 3:30:00 CDT, Stop date: 10/20/15 3:30:00 CDT Start Date: 10/20/15 Stop Date: 10/20/15 Status: Completed morphine Sulfate 4 mg, 2 mL, Route: IVP, Drug form: INJ, Q2H, Dosing Weight 62.727, kg, PRN Pain Score 7-10, Start date: 10/20/15 9:47:00 CDT, Duration: 30 day, Stop date: 11/18 9:46:00 CDT Notes: (Same as:MORPhine Sulfate) Start Date: 10/20/15 Stop Date: 10/20/15 Status: Discontinued morphine Sulfate 2 mg, 1 mL, Route: IVP, Drug form: INJ, Q2H, Dosing Weight 62.727, kg, PRN Pain Score 4-6, Start date: 10/20/15 9:47:00 CDT, Duration: 30 day, Stop date: 9:46:00 CDT Notes: (Same as:MORPhine Sulfate) Start Date: 10/20/15 Stop Date: 10/20/15 Status: Discontinued nitroglycerin 2% ointment 0.5 inch, Route: TOP, Drug Form: OINT, Dosing Weight 62.727, kg, TID, Start date : 10/20/15 13:00:00 CDT, Duration: 30 day, Stop date: 11/19/15 9:00:00 CDT Notes: 1 gram is approximately 1 inch of nitroglycerin ointment (20 mg NTG pe r gram) (Same as:Nitro-Bid) Start Date: 10/20/15 Stop Date: 10/20/15 Status: Discontinued nitroglycerin SL Tab 0.4 mg, 1 tab, Route: SL, Drug form: TAB, Q5Min, Dosing Weight 62.727, kg, PRN C hest Pain, Start date: 10/20/15 9:47:00 CDT, Duration: 3 doses or times, Stop da te: Limited # of times Notes: (Same as:Nitroquick, Nitrostat)"Do Not Crush" Sublingual tablet Start Date: 10/20/15 Stop Date: 10/20/15 Status: Discontinued Holland 10/325 oral tablet 1 tab, Route: PO, Drug Form: TAB, Dosing Weight 62.727, kg, ONCE, STAT, Start da te: 10/20/15 8:08:00 CDT, Stop date: 10/20/15 8:08:00 CDT Notes: Do not exceed 4gm/day of acetaminophen. (Same as: Holland 325/10) Start Date: 10/20/15 Stop Date: 10/20/15 Status: Completed ondansetron 4 mg, Route: IVP, ONCE, Dosing Weight 62.727, kg, Priority: STAT, Start date: 3:30:00 CDT, Stop date: 10/20/15 3:30:00 CDT Start Date: 10/20/15 Stop Date: 10/20/15 Status: Completed ondansetron 4 mg, 1 tab, Route: PO, Drug form: TAB, Q8H, Dosing Weight 62.727, kg, PRN Nause a & Vomiting, Start date: 10/20/15 9:47:00 CDT, Duration: 30 day, Stop date: 11/19/15 9:46:00 CDT Notes: (Same as: Zofran) Start Date: 10/20/15 Stop Date: 10/20/15 Status: Discontinued Saline Flush 0.9% 10 mL, Route: IVP, Drug Form: INJ, Dosing Weight 62.727, kg, PRN, PRN Line Flush , Start date: 10/20/15 3:30:00 CDT, Duration: 30 day, Stop date: 11/19/15 3:29:0 0 CDT Notes: (Same as: BD Posiflush) Start Date: 10/20/15 Stop Date: 10/20/15 Status: Discontinued Saline Flush 0.9% 10 ml, Route: IVP, Drug Form: INJ, Dosing Weight 62.727, kg, Q12H, Start date: 0 10/20/15 21:00:00 CDT, Duration: 30 day, Stop date: 11/19/15 9:00:00 CDT Notes: (Same as: BD Posiflush) Start Date: 10/20/15 Stop Date: 10/20/15 Status: Canceled Saline Flush 0.9% 10 ml, Route: IVP, Drug Form: INJ, Dosing Weight 62.727, kg, PRN, PRN Line Flush , Start date: 10/20/15 9:47:00 CDT, Duration: 30 day, Stop date: 11/19/15 9:46:0 0 CDT Notes: (Same as: BD Posiflush) Start Date: 10/20/15 Stop Date: 10/20/15 Status: Discontinued Sodium Chloride 0.9% IV 1000 mL 1,000 mL, Rate: 125 ml/hr, Infuse over: 8 hr, Route: IV, Dosing Weight 62.727 kg , Total Volume: 1,000, Priority: STAT, Start date: 10/20/15 3:30:00 CDT, Duratio n: 1 doses or times, Stop date: 10/20/15 11:29:00 CDT Start Date: 10/20/15 Stop Date: 10/20/15 Status: Completed Results ELECTROLYTES Most recent to 1 2 oldest [Reference Range]: Sodium Lvl [135-145 131 mEq/L mEq/L] *LOW* (10/20/15 3:47 AM) Potassium Lvl 3.7 mEq/L [3.5-5.1 mEq/L] (10/20/15 3:47 AM) Chloride Lvl [95-109 97 mEq/L mEq/L] (10/20/15 3:47 AM) CO2 [24-32 mEq/L] 26 mEq/L (10/20/15 3:47 AM) AGAP [10.0-20.0 11.7 mEq/L mEq/L] (10/20/15 3:47 AM) CHEM PANEL Most recent to 1 2 oldest [Reference Range]: Creatinine Lvl 0.51 mg/dL [0.50-1.40 mg/dL] (10/20/15 3:47 AM) eGFR 96 mL/min/1.73m2 1 *NA* (10/20/15 3:47 AM) BUN [7-22 mg/dL] 9 mg/dL (10/20/15 3:47 AM) B/C Ratio [6-25] 18 (10/20/15 3:47 AM) Glucose Lvl [70-99 127 mg/dL mg/dL] *HI* (10/20/15 3:47 AM) Total Protein 8.0 g/dL [6.4-8.4 g/dL] (10/20/15 3:47 AM) Albumin Lvl [3.5-5.0 3.9 g/dL g/dL] (10/20/15 3:47 AM) Globulin [2.7-4.2 4.1 g/dL g/dL] (10/20/15 3:47 AM) A/G Ratio [0.7-1.6] 1.0 (10/20/15 3:47 AM) Calcium Lvl 8.9 mg/dL [8.5-10.5 mg/dL] (10/20/15 3:47 AM) ALT [0-65 unit/L] 25 unit/L (10/20/15 3:47 AM) AST [0-37 unit/L] 19 unit/L (10/20/15 3:47 AM) Alk Phos [39-136 84 unit/L unit/L] (10/20/15 3:47 AM) Bili Total [0.2-1.3 0.3 mg/dL mg/dL] (10/20/15 3:47 AM) Lipase Lvl [73-393 63 unit/L unit/L] *LOW* (10/20/15 3:47 AM) Lactic Acid Lvl 1.0 mMol/L [0.5-2.2 mMol/L] (10/20/15 5:12 AM) 1Result Comment: The eGFR is calculated [...] BMI. CARDIAC ENZYMES Most recent to 1 2 oldest [Reference Range]: Total CK [12-191 124 unit/L 209 unit/L unit/L] (10/20/15 10:06 AM) *HI* (10/20/15 3:47 AM) CK MB [0.5-3.6 1.8 ng/mL 3.0 ng/mL ng/mL] (10/20/15 10:06 AM) (10/20/15 3:47 AM) CK MB Index 1.5 1.4 [0.0-2.5] (10/20/15 10:06 AM) (10/20/15 3:47 AM) Troponin-I 0.04 ng/mL 0.03 ng/mL [0.00-0.40 ng/mL] (10/20/15 10:06 AM) (10/20/15 3:47 AM) BNP [<=100 pg/mL] 37 pg/mL (10/20/15 3:47 AM) URINE AND STOOL Most recent to 1 2 oldest [Reference Range]: UA Turbidity [Clear] Clear (10/20/15 3:52 AM) UA Color Leatha *NA* (10/20/15 3:52 AM) UA pH [5.0-8.0] 7.0 (10/20/15 3:52 AM) UA Spec Grav 1.010 [<=1.030] (10/20/15 3:52 AM) UA Glucose [Negative Negative mg/dL mg/dL] *NA* (10/20/15 3:52 AM) UA Blood [Negative] Small *ABN* (10/20/15 3:52 AM) UA Ketones [Negative Negative mg/dL mg/dL] *NA* (10/20/15 3:52 AM) UA Protein [Negative Negative mg/dL mg/dL] (10/20/15 3:52 AM) UA Urobilinogen <=1.0 mg/dL [0.1-1.0 mg/dL] *NA* (10/20/15 3:52 AM) UA Bili [Negative] Negative *NA* (10/20/15 3:52 AM) UA Leuk Est Large [Negative] *ABN* (10/20/15 3:52 AM) UA Nitrite Negative [Negative] (10/20/15 3:52 AM) UA WBC [0-5 /HPF] 5 /HPF (10/20/15 3:52 AM) UA RBC [0-2 /HPF] 2 /HPF (10/20/15 3:52 AM) UA Bacteria [None Occasional /HPF Seen /HPF] *NA* (10/20/15 3:52 AM) UA Sq Epi [Few /LPF] Occasional /LPF *NA* (10/20/15 3:52 AM) HEMATOLOGY Most recent to 1 2 oldest [Reference Range]: WBC [3.7-10.4 K/CMM] 11.5 K/CMM *HI* (10/20/15 3:47 AM) RBC [4.20-5.40 4.77 M/CMM M/CMM] (10/20/15 3:47 AM) Hgb [12.0-16.0 g/dL] 13.9 g/dL (10/20/15 3:47 AM) Hct [36.0-48.0 %] 41.7 % (10/20/15 3:47 AM) MCV [80.0-98.0 fL] 87.5 fL (10/20/15 3:47 AM) MCH [27.0-31.0 pg] 29.2 pg (10/20/15 3:47 AM) MCHC [32.0-36.0 33.4 g/dL g/dL] (10/20/15 3:47 AM) RDW [11.5-14.5 %] 13.0 % (10/20/15 3:47 AM) Platelet [133-450 338 K/CMM K/CMM] (10/20/15 3:47 AM) MPV [7.4-10.4 fL] 7.5 fL (10/20/15 3:47 AM) Segs [45.0-75.0 %] 82.4 % *HI* (10/20/15 3:47 AM) Lymphocytes 10.6 % [20.0-40.0 %] *LOW* (10/20/15 3:47 AM) Monocytes [2.0-12.0 6.2 % %] (10/20/15 3:47 AM) Eosinophils [0.0-4.0 0.3 % %] (10/20/15 3:47 AM) Basophils [0.0-1.0 0.5 % %] (10/20/15 3:47 AM) Segs-Bands # 9.5 K/CMM [1.5-8.1 K/CMM] *HI* (10/20/15 3:47 AM) Lymphocytes # 1.2 K/CMM [1.0-5.5 K/CMM] (10/20/15 3:47 AM) Monocytes # [0.0-0.8 0.7 K/CMM K/CMM] (10/20/15 3:47 AM) Basophils # [0.0-0.2 0.1 K/CMM K/CMM] (10/20/15 3:47 AM) PT [12.0-14.7 12.9 seconds seconds] (10/20/15 3:47 AM) INR [0.85-1.17] 0.94 (10/20/15 3:47 AM) VIRAL - SEROLOGY Most recent to 1 2 oldest [Reference Range]: Influ A [Negative] Negative (10/20/15 3:47 AM) Influ B [Negative] Negative (10/20/15 3:47 AM) Immunizations Given and Recorded Vaccine Date Status Refusal Reason influenza virus vaccine, inactivated1 10/27/13 Given influenza virus vaccine, inactivated2 10/27/13 Given pneumococcal 23-valent vaccine3 07/25/11 Given 1Result Comment: done high dose. Migrated from OBS ; Data migrated from [facility] on 08/30/2014. 2Result Comment: fluzone high dose [[id number]]. Migrated from OBS ; Data migrated from [facility] on 08/30/2014. 3Result Comment: historical. Migrated from OBS ; Data migrated from [employer] on 08/30/2014. Procedures Procedure Date Related Diagnosis [...] from: Title: CARDIOLOGY Author: Osmani Perales Date: 10/20/15 [facility] C[facility] CONSULT Dr. Welch & Dr. Chun REASON FOR CONSULT: CHEST PAIN REQUESTING MD: Dustin Hunt MD HISTORY OF PRESENT ILLNESS Mrs. Sprague is a plesant 75yo female with a PMHx of HTN, HLD, chronic pain, migraines, GERD, who came to [facility] with complaints of headaches, neck pain, arm pain, back pain and abdominal pain. She also complains of chest pain which is diffuse and tender to palpation. She also complains of bilateral lower extremity 'shaking'. She denies shortness of breath, palpitations or syncope. 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 She refers that she feels well; denies any current CV complaints. She does refer that recently had an endoscopy and still has some abdominal pain. She also refers that she feels depressed and would like to talk to a psychiatrist. PAST MEDICAL HISTORY HTN HLD GERD Depression Anxiety CHronic pain Migraines PAST SURGICAL HISTORY Hysterectomy Vein surgery ALLERGIES NKDA FAMILY HISTORY Non contributory HOME MEDS See MAR SOCIAL HISTORY Smoking: Denies EtOH: Denies Other: Denies REVIEW OF SYSTEMS Nervous: Denies Endocrine: Denies Skin: Denies CV: as per HPI Respiratory: as per HPI Hematology/Coagulation: Denies Urinary: Denies Genital: Denies Metabolic: Denies MSK: Denies GI: Denies ID: Denies Endo: Denies Rheum: Denies PHYSICAL EXAM VitalsTmp(F)[id number] 10/19 12:58----[id number]--- 10/19 12:30----[id number]--- 10/19 11:[id number]--- 10/19 10:28----[id number]--- 10/19 10:[id number]--- 24 Hr Tmax: 98.7F (37.06c) at 10/19 11:08Vital Signs are the last 5 in the past 48 hours. I&ORecordInOutBal 10/323hr Tot 1 0 1 4hr Tot 0 0 0 GENERAL: In bed, no apparent distress. HEENT: Moist mucous membranes, neck supple, JVD absent, carotid bruit absent CV: RRR, S1/S2 normal, S3/S4 negative. MARLENE LUSB. LUNGS: CTA bilaterally, no wheezing, no crackles ABD: Soft, non tender, non distended, no masses or megalies on my exam EXT: Edema not present, pulses present NEURO: AAOx3, moves 4 extremities, no gross deficit on my exam ECG: Sinus rhythm Labs (Last four charted values) WBC H 11.5(OCT 19) Hgb 13.9(OCT 19) Hct 41.7(OCT 19) Plt 338(OCT 19) Na L 131(OCT 19) K 3.7(OCT 19) CO2 26(OCT 19) Cl 97(OCT 19) Cr 0.51(OCT 19) BUN 9(OCT 19) Glucose Random H 127(OCT 19) Ca 8.9(OCT 19) PT 12.9(OCT 19) INR 0.94(OCT 19) Troponin 0.04(OCT 19)0.03(OCT 19) CK MB 1.8(OCT 19)3.0(OCT 19) Total CK 124(OCT 19)H 209(OCT 19) Scheduled Meds (4): 10/21/15 aspirin (aspirin 325 mg tablet) 325 mg PO Daily 10/20/15 enoxaparin 40 mg SUB-Q [id number] 10/20/15 nitroglycerin (nitroglycerin 2% ointment) 0.5 inch TOP TID 10/20/15 sodium chloride (Saline Flush 0.9%) 10 ml IVP Q12H PRN Meds (7): 10/20/15 acetaminophen 650 mg PO Q4H 10/20/15 morphine Sulfate 2 mg IVP Q2H 10/20/15 morphine Sulfate 4 mg IVP Q2H 10/20/15 nitroglycerin (nitroglycerin SL Tab) 0.4 mg SL Q5Min 10/20/15 ondansetron 4 mg PO Q8H 10/20/15 sodium chloride (Saline Flush 0.9%) 10 mL IVP PRN 10/20/15 sodium chloride (Saline Flush 0.9%) 10 ml IVP PRN ASSESSMENT & PLAN CHEST PAIN - Currently she is not having chest pain, refers that her chest wall is tender to palpation, as well as her neck, head, shoulders, back and hips. - ECG with no acute changes. ACS r/o with negative cardiac biomarkers - SHe is currently hemodynamically stable and with no CV complaints. - Continue medical Rx optimization and agressive CV risk factor control. HTN - Not at target. Resume home meds and evalute response. - Low salt diet ABDOMINAL PAIN - Recent EGD/colonoscopy by GI. - Consider eval while in the hospital if appropriate DEPRESSION - SHe says she would like to see a psychiatrist as she feels depressed and anxious. - Denies any suicidal ideation. - I have told the nurses to provided her with the Dr. Green's contact information. SHe would like to see him as outpatient. No further CV workup at this point. Rest of management per primary service. SHe will need to follow up with in the office for continued CV management. Plan of action explained to the patient and at bedside. They voice understanding and agree with above.
--- OUTSIDE RECORDS SUMMARY | 2018-04-01 09:25 | XMS REPORT | Summary of Care ---
Author Author [facility] Organization [facility] Address Unknown Phone Unavailable Encounter GABRIEL Valencia(RJ) [id number] Date(s): 10/15/15 - 10/15/15 [facility] [address] [place] [address]- Discharge Disposition: Home or Self Care Attending Physician: Hernando Singh MD Referring Physician: Hernando Singh MD Vital Signs 1 2 3 Most recent to oldest [Reference Range]: 162.56 cm (10/12/15 11:14 AM) Height 141/73 mmHg *HI* (10/15/15 12:44 PM) 131/77 mmHg (10/15/15 12:30 PM) 125/64 mmHg (10/15/15 12:14 PM) Blood Pressure [90-140/60-90 mmHg] 16 BRMIN (10/15/15 12:44 PM) 20 BRMIN (10/15/15 12:30 PM) 24 BRMIN *HI* (10/15/15 12:14 PM) Respiratory Rate [14-20 BRMIN] 63.636 kg (10/12/15 11:14 AM) Weight 24.08 m2 (10/12/15 11:14 AM) Body Mass Index Problem List Condition Effective Dates Status Health Status Informant Acute bronchitis1, 2 08/08/13 Resolved Allergic rhinitis3 05/02/13 Active Arthritis(Confirmed) Active Arthritis(Confirmed) Active Asthma4 01/28/13 Active Backache(Confirmed) Active Benign essential 07/09/12 Active hypertension5 Child examination Resolved finding6 Chronic back pain7 02/16/59 Active Chronic headache 05/02/13 Active disorder8 Evaluation finding9 Resolved Gastritis(Confirmed) Resolved Gastroesophageal 08/08/13 Active reflux eehcpoq62 GERD Resolved (gastroesophageal reflux disease)(Confirmed) Gynecologic Resolved ydfzemtgdvc45 HTN Active (hypertension)(Confi rmed) HTN - Resolved Hypertension(Confirm ed) Hyperlipidemia(Confi Active rmed) Hyperlipidemia(Confi Active rmed) Hypertension(Confirm Active ed) Impaired fasting 01/16/13 Resolved wiqhmgiqu35 Impaired glucose 01/16/13 Active wicaduakw34 Influenza 10/27/13 Resolved akpnocyfkwc14, 15 Pagrqiok16 01/28/13 Active Major depressive 03/24/14 Active sqtmyape14 Migraine(Confirmed) Active Migraine(Confirmed) Resolved Migraine(Confirmed) Active Mixed 12/28/12 Active ugehlvfbdfnqda41 Wftegpqmhpavmt83 Active Gioosokquk16 Active Physical examination Resolved zvdbtinpu67 Screening Resolved rgqywoxwlsp19 Sleep apnea23 10/27/13 Active 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) Ac DVT/embl low ext Resolved NOS(Confirmed) Tshnves71 05/02/13 Active 1Data migrated from [employer] [...] [employer] on 09/01/14. 23Data migrated from [facility] on 07/15/14. 24Data migrated from [facility] on 07/15/14. Allergies, Adverse Reactions, Alerts Substance Reaction Severity Status NKDA Active Medications acetaminophen-codeine 300 mg-30 mg oral tablet 1 tab, PO, Q4H, PRN Pain, # 42 tab, 0 Refill(s) Start Date: 10/12/15 Stop Date: 10/19/15 Status: Ordered Afrin Severe Congestion 2 spray, NASAL, BID, 0 Refill(s) Start Date: 10/15/15 Status: Ordered alendronate 70 mg oral tablet 70 mg=1 tab, PO, Q7D, # 4 tab, 0 Refill(s) Start Date: 10/12/15 Status: Ordered amLODIPine 10 mg oral tablet 10 mg=1 tab, PO, Daily, # 30 tab, 0 Refill(s) Start Date: 10/12/15 Status: Ordered amoxicillin 875 mg, PO, 0 Refill(s) Start Date: 10/15/15 Status: Ordered atorvastatin 40 mg oral tablet 40 mg=1 tab, PO, Bedtime, # 90 tab, 0 Refill(s) Start Date: 10/12/15 Status: Ordered codeine PO, Q4H, 0 Refill(s) Start Date: 10/15/15 Status: Ordered dicyclomine 10 mg oral capsule 10 mg=1 cap, PO, QID-Before Meals, # 28 cap, 0 Refill(s) Start Date: 10/12/15 Stop Date: 10/19/15 Status: Ordered famotidine 20 mg=1 tab, PO, BID, # 60 tab, 0 Refill(s) Start Date: 10/15/15 Stop Date: 11/14/15 Status: Ordered famotidine 40 mg/5 mL oral liquid 40 mg=5 ml, PO, Bedtime, # 150 ml, 0 Refill(s) Start Date: 10/12/15 Status: Ordered furosemide 20 mg oral tablet 20 mg=1 tab, PO, Daily, # 30 tab, 0 Refill(s) Start Date: 10/15/15 Status: Ordered Lactated Ringers 1,000 mL 1,000 mL, Rate: 25 ml/hr, Infuse over: 40 hr, Route: IV, Dosing Weight 63.636 kg , Total Volume: 1,000, Start date: 10/15/15 9:52:00 CDT, Duration: 1 day, Stop d ate: 10/16/15 9:51:00 CDT Start Date: 10/15/15 Stop Date: 10/15/15 Status: Discontinued metoclopramide 5 mg oral tablet, disintegrating 5 mg=1 tab, PO, Before Meals & Bedtime, # 120 tab, 0 Refill(s) Start Date: 10/12/15 Stop Date: 11/11/15 Status: Ordered potassium chloride 10 mEq oral capsule, extended release 10 mEq=1 cap, PO, BID, 0 Refill(s) Start Date: 10/15/15 Status: Ordered promethazine 12.5 mg oral tablet 12.5 mg=1 tab, PO, Q4H, PRN Nausea & Vomiting, # 60 tab, 0 Refill(s) Start Date: 10/12/15 Stop Date: 10/22/15 Status: Ordered tizanidine 2 mg oral capsule 4 mg=2 cap, PO, Q8H, 0 Refill(s) Start Date: 10/15/15 Status: Ordered zolpidem 5 mg sublingual tablet 5 mg=1 tab, SL, Bedtime, PRN for sleep, 0 Refill(s) Start Date: 10/12/15 Stop Date: 10/26/15 Status: Ordered Results ELECTROLYTES Most recent to 1 oldest [Reference Range]: Sodium Lvl [135-145 141 mEq/L mEq/L] (10/15/15 10:25 AM) Potassium Lvl 3.3 mEq/L [3.5-5.1 mEq/L] *LOW* (10/15/15 10:25 AM) Chloride Lvl [95-109 103 mEq/L mEq/L] (10/15/15 10:25 AM) CO2 [24-32 mEq/L] 28 mEq/L (10/15/15 10:25 AM) AGAP [10.0-20.0 13.3 mEq/L mEq/L] (10/15/15 10:25 AM) CHEM PANEL Most recent to 1 oldest [Reference Range]: Creatinine Lvl 0.63 mg/dL [0.50-1.40 mg/dL] (10/15/15 10:25 AM) eGFR 89 mL/min/1.73m2 1 *NA* (10/15/15 10:25 AM) BUN [7-22 mg/dL] 11 mg/dL (10/15/15 10:25 AM) Glucose Lvl [70-99 110 mg/dL mg/dL] *HI* (10/15/15 10:25 AM) Calcium Lvl 9.0 mg/dL [8.5-10.5 mg/dL] (10/15/15 10:25 AM) 1Result Comment: The eGFR is calculated [...] be mul tiplied by the estimated BMI. Immunizations Given and Recorded Vaccine Date Status Refusal Reason influenza virus vaccine, inactivated1 10/27/13 Given influenza virus vaccine, inactivated2 10/27/13 Given pneumococcal 23-valent vaccine3 07/25/11 Given 1Result Comment: done high dose. Migrated from OBS ; Data migrated from [employer] on 08/30/2014. 2Result Comment: fluzone high dose [[id number]]. Migrated from OBS ; Data migrated from [employer] on 08/30/2014. 3Result Comment: historical. Migrated from OBS ; Data migrated from [employer] on 08/30/2014. Procedures Procedure Date Related Diagnosis Body Site Angioscopy of vein Cataract surgery section Excision of vein Hysterectomy Tubal ligation Social History Social History Type Response Substance Abuse Use: None. Alcohol Never Smoking Status Never smoker; Concerns about tobacco use in household: No; Exposure to Tobacco Smoke None; Cigarette Smoking Last 365 Days No; Reg Smoking Cessation Counseling No Assessment and Plan No data available for this section
--- OUTSIDE RECORDS SUMMARY | 2018-04-01 09:25 | XMS REPORT | Summary of Care ---
Author Author [facility] Organization [facility] Address Unknown Phone Unavailable Encounter GABRIEL Valencia(RJ) [id number] Date(s): 10/05/15 - 10/07/15 [facility] [address] [place] [address]- [phone] Discharge Disposition: Home or Self Care Attending Physician: Adama Melendrez MD Admitting Physician: Adama Melendrez MD Vital Signs 1 2 3 Most recent to oldest [Reference Range]: 162.56 cm (10/05/15 10:26 PM) 162.56 cm (10/05/15 3:16 PM) Height 62.864 kg (10/06/15 5:35 AM) Current Weight 97.9 DegF (10/07/15 11:27 AM) 97.8 DegF (10/07/15 8:08 AM) 98 DegF (10/07/15 3:34 AM) Temperature Oral [96.4-99.1 DegF] 134/78 mmHg (10/07/15 11:27 AM) 139/76 mmHg (10/07/15 8:08 AM) 121/70 mmHg (10/07/15 3:34 AM) Blood Pressure [90-140/60-90 mmHg] 18 BRMIN (10/07/15 11:27 AM) 18 BRMIN (10/07/15 6:21 AM) 18 BRMIN (10/07/15 3:34 AM) Respiratory Rate [14-20 BRMIN] 68 bpm (10/07/15 11:27 AM) 70 bpm (10/07/15 8:08 AM) 62 bpm (10/07/15 3:34 AM) Peripheral Pulse Rate [60-100 bpm] 63.636 kg (10/05/15 10:26 PM) 63.636 kg (10/05/15 3:16 PM) Weight 24.08 m2 (10/05/15 10:26 PM) 24.08 m2 (10/05/15 3:16 PM) Body Mass Index Problem List Condition [...] GERD Resolved (gastroesophageal reflux disease)(Confirmed) Gynecologic Resolved iekqhtjohgk65 HTN Active (hypertension)(Confi rmed) Hyperlipidemia(Confi Active rmed) Hyperlipidemia(Confi Active rmed) Hypertension(Confirm Active ed) Impaired fasting 01/16/13 Resolved wilfwlevx67 Impaired glucose 01/16/13 Active kplomejcb29 Influenza 10/27/13 Resolved gnowaecnfrh94, 15 Zxbotcjo34 01/28/13 Active Major depressive 03/24/14 Active hmofwign78 Migraine(Confirmed) Active Migraine(Confirmed) Active Mixed 12/28/12 Active mkghzcytofyirw66 Cenhfdtxbwqsuu55 Active Wtmdakynqg97 Active Physical examination Resolved hyfbcpwgo11 Screening Resolved dvdrlhwoqzw21 Sleep apnea23 10/27/13 Active 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) Yecjegm53 05/02/13 Active 1Data migrated from [employer] [...] Status NKDA Active Medications Ambien 5 mg, PO, Bedtime, 0 Refill(s) Start Date: 10/05/15 Status: Ordered amLODIPine 10 mg, PO, Daily, 0 Refill(s) Start Date: 10/05/15 Status: Ordered amoxicillin-clavulanate 875 mg, PO, BID, # 20 tab, 0 Refill(s) Start Date: 10/05/15 Stop Date: 10/15/15 Status: Ordered aspirin 325 mg tablet 325 mg, 1 tab, Route: PO, Drug form: TAB, ONCE, Dosing Weight 63.636, kg, Priori ty: STAT, Start date: 10/05/15 20:17:00 CDT, Stop date: 10/05/15 20:17:00 CDT Notes: Take with food. Start Date: 10/05/15 Stop Date: 10/05/15 Status: Completed aspirin 325 mg tablet 325 mg, 1 tab, Route: PO, Drug form: TAB, Daily, Dosing Weight 63.636, kg, Start date: 10/06/15 9:00:00 CDT, Duration: 30 day, Stop date: 11/04/15 9:00:00 CDT Notes: Take with food. Start Date: 10/06/15 Stop Date: 10/07/15 Status: Discontinued atropine 0.5 mg, 5 mL, Route: IVP, Drug form: INJ, PRN, PRN Bradycardia, Start date: 09/16 11/01 22:52:00 CDT, Duration: 30 day, Stop date: 11/04/15 22:51:00 CDT Start Date: 10/05/15 Stop Date: 10/07/15 Status: Discontinued dicyclomine 10 mg oral capsule 10 mg=1 cap, PO, TID, 0 Refill(s) Start Date: 10/05/15 Status: Ordered digoxin 125 mcg (0.125 mg) oral tablet 125 microgram=1 tab, PO, Daily, 0 Refill(s) Start Date: 10/05/15 Status: Ordered enoxaparin 40 mg, 0.4 mL, Route: SUB-Q, Drug form: INJ, [id number], Dosing Weight 63.636, kg, Start date: 10/06/15 1:00:00 CDT, Duration: 30 day, Stop date: 11/04/15 1:00:00 CDT Notes: (Same as: Lovenox) Start Date: 10/06/15 Stop Date: 10/07/15 Status: Discontinued famotidine 40 mg, PO, BID, # 60 tab, 0 Refill(s) Start Date: 10/05/15 Stop Date: 11/04/15 Status: Ordered Lasix 20 mg oral tablet 20 mg=1 tab, PO, Daily, 0 Refill(s) Start Date: 10/05/15 Status: Ordered LORazepam 1 mg, PO, Q6H, PRN as needed for anxiety, 0 Refill(s) Start Date: 10/05/15 Status: Ordered morphine Sulfate 4 mg, 2 mL, Route: IVP, Drug form: INJ, ONCE, Dosing Weight 63.636, kg, Priority : STAT, Start date: 10/05/15 20:16:00 CDT, Stop date: 10/05/15 20:16:00 CDT Notes: (Same as:MORPhine Sulfate) Start Date: 10/05/15 Stop Date: 10/05/15 Status: Completed morphine Sulfate 2 mg, 1 mL, Route: IVP, Drug form: INJ, Q2H, Dosing Weight 63.636, kg, PRN Pain Score 4-6, Start date: 10/05/15 21:32:00 CDT, Duration: 30 day, Stop date: 11/03 21:31:00 CDT Notes: (Same as:MORPhine Sulfate) Start Date: 10/05/15 Stop Date: 10/07/15 Status: Discontinued morphine Sulfate 4 mg, 2 mL, Route: IVP, Drug form: INJ, Q2H, Dosing Weight 63.636, kg, PRN Pain Score 7-10, Start date: 10/05/15 21:32:00 CDT, Duration: 30 day, Stop date: 10/17 10/01 21:31:00 CDT Notes: (Same as:MORPhine Sulfate) Start Date: 10/05/15 Stop Date: 10/07/15 Status: Discontinued nitroglycerin 0.4 mg sublingual tablet 0.4 mg, 1 tab, Route: SL, Drug form: TAB, Q5Min, PRN Chest Pain, Start date: 22:52:00 CDT, Duration: 30 day, Stop date: 11/04/15 22:51:00 CDT Notes: (Same as:Nitroquick, Nitrostat)"Do Not Crush" Sublingual tablet Start Date: 10/05/15 Stop Date: 10/07/15 Status: Discontinued nitroglycerin 2% ointment 1 inch, Route: TOP, Drug Form: OINT, Dosing Weight 63.636, kg, ONCE, STAT, Start date: 10/05/15 20:17:00 CDT, Stop date: 10/05/15 20:17:00 CDT Notes: 1 gram is approximately 1 inch of nitroglycerin ointment (20 mg NTG pe r gram) (Same as:Nitro-Bid) Start Date: 10/05/15 Stop Date: 10/05/15 Status: Completed nitroglycerin 2% ointment 0.5 inch, Route: TOP, Drug Form: OINT, Dosing Weight 63.636, kg, TID, Start date : 10/06/15 6:00:00 CDT, Duration: 30 day, Stop date: 11/04/15 18:00:00 CDT Notes: 1 gram is approximately 1 inch of nitroglycerin ointment (20 mg NTG pe r gram) (Same as:Nitro-Bid) Start Date: 10/06/15 Stop Date: 10/07/15 Status: Discontinued nitroglycerin SL Tab 0.4 mg, 1 tab, Route: SL, Drug form: TAB, Q5Min, Dosing Weight 63.636, kg, PRN C hest Pain, Start date: 10/05/15 21:32:00 CDT, Duration: 3 doses or times, Stop d ate: Limited # of times Notes: (Same as:Nitroquick, Nitrostat)"Do Not Crush" Sublingual tablet Start Date: 10/05/15 Stop Date: 10/05/15 Status: Discontinued ondansetron 4 mg, 1 tab, Route: PO, Drug form: TAB, Q8H, Dosing Weight 63.636, kg, PRN Nause a & Vomiting, Start date: 10/05/15 21:32:00 CDT, Duration: 30 day, Stop date: 11/04/15 21:31:00 CDT Notes: (Same as: Zofran) Start Date: 10/05/15 Stop Date: 10/07/15 Status: Discontinued Phenergan 6.25 mg, PO, Q8H, PRN as needed for nausea/vomiting, phenergan 6.25mg/5ml po q8h , 0 Refill(s) Start Date: 10/05/15 Status: Ordered pneumococcal 13-valent vaccine 0.5 mL, Route: IM, Daily, Start date: 10/06/15 9:00:00 CDT, Duration: 1 doses or times, Stop date: 10/06/15 9:00:00 CDT Start Date: 10/06/15 Stop Date: 10/05/15 Status: Deleted potassium chloride 10 mEq, PO, Daily, 0 Refill(s) Start Date: 10/05/15 Status: Ordered predniSONE 50 mg, PO, Daily, Quantity sufficient, 0 Refill(s) Start Date: 10/05/15 Status: Ordered Saline Flush 0.9% 10 mL, Route: IVP, Drug Form: INJ, Dosing Weight 63.636, kg, PRN, PRN Line Flush , Start date: 10/05/15 15:23:00 CDT, Duration: 30 day, Stop date: 11/04/15 15:22 :00 CDT Notes: (Same as: BD Posiflush) Start Date: 10/05/15 Stop Date: 10/07/15 Status: Discontinued Saline Flush 0.9% 10 ml, Route: IVP, Drug Form: INJ, Dosing Weight 63.636, kg, Q12H, Start date: 0 10/06/15 9:00:00 CDT, Duration: 30 day, Stop date: 11/04/15 21:00:00 CDT Notes: (Same as: BD Posiflush) Start Date: 10/06/15 Stop Date: 10/07/15 Status: Discontinued Saline Flush 0.9% 10 ml, Route: IVP, Drug Form: INJ, Dosing Weight 63.636, kg, PRN, PRN Line Flush , Start date: 10/05/15 21:32:00 CDT, Duration: 30 day, Stop date: 11/04/15 21:31 :00 CDT Notes: (Same as: BD Posiflush) Start Date: 10/05/15 Stop Date: 10/07/15 Status: Discontinued Symbicort 160/4.5 inhalation aerosol with adapter 2 puff, INHALATION, BID, 0 Refill(s) Start Date: 10/05/15 Status: Ordered Symbicort 160/4.5 inhalation aerosol with adapter 2 puff, INHALATION, BID, 0 Refill(s) Start Date: 10/05/15 Status: Ordered temazepam 15 mg, 1 cap, Route: PO, Drug form: CAP, Bedtime, Dosing Weight 63.636, kg, PRN Insomnia, Start date: 10/05/15 21:32:00 CDT, Duration: 30 day, Stop date: 21:31:00 CDT Notes: (Same As: Restoril) Start Date: 10/05/15 Stop Date: 10/07/15 Status: Discontinued tizanidine 2 mg oral tablet 2 mg=1 tab, PO, Q8H, PRN shoulder pain, # 30 tab, 0 Refill(s) Start Date: 10/07/15 Status: Ordered tramadol 50 mg, PO, Q6H, PRN Pain, # 20 tab, 0 Refill(s) Start Date: 10/05/15 Stop Date: 10/09/15 Status: Ordered Tylenol 650 mg, 2 tab, Route: PO, Drug form: TAB, Q4H, Dosing Weight 63.636, kg, PRN Hea dache 1-5, Start date: 10/06/15 5:35:00 CDT, Duration: 30 day, Stop date: 5:34:00 CDT Notes: Do not exceed 4 gm/day. (Same as: Tylenol) Start Date: 10/06/15 Stop Date: 10/07/15 Status: Discontinued Tylenol with Codeine #3 oral tablet 1 tab, PO, Q6H, PRN Pain Score 4-6, 0 Refill(s) Start Date: 10/05/15 Status: Ordered Zofran 4 mg, 2 mL, Route: IVP, Drug form: INJ, ONCE, Dosing Weight 63.636, kg, Priority : STAT, Start date: 10/05/15 20:16:00 CDT, Stop date: 10/05/15 20:16:00 CDT Notes: (Same as: Zofran) MEDICATION WASTE Product Size: 4 mgProduct Was guillaume: ___ mg Start Date: 10/05/15 Stop Date: 10/05/15 Status: Completed Results ELECTROLYTES 1 2 3 Most recent to oldest [Reference Range]: 136 mEq/L (10/06/15 7:07 AM) 135 mEq/L (10/05/15 4:25 PM) Sodium Lvl [135-145 mEq/L] 3.6 mEq/L (10/06/15 7:07 AM) 3.8 mEq/L (10/05/15 4:25 PM) Potassium Lvl [3.5-5.1 mEq/L] 101 mEq/L (10/06/15 7:07 AM) 99 mEq/L (10/05/15 4:25 PM) Chloride Lvl [95-109 mEq/L] 32 mEq/L (10/06/15 7:07 AM) 29 mEq/L (10/05/15 4:25 PM) CO2 [24-32 mEq/L] 6.6 mEq/L *LOW* (10/06/15 7:07 AM) 10.8 mEq/L (10/05/15 4:25 PM) AGAP [10.0-20.0 mEq/L] CHEM PANEL 1 2 3 Most recent to oldest [Reference Range]: 0.50 mg/dL (10/06/15 7:07 AM) 0.60 mg/dL (10/05/15 4:25 PM) Creatinine Lvl [0.50-1.40 mg/dL] 96 mL/min/1.73m2 1 *NA* (10/06/15 7:07 AM) 91 mL/min/1.73m2 2 *NA* (10/05/15 4:25 PM) eGFR 14 mg/dL (10/06/15 7:07 AM) 10 mg/dL (10/05/15 4:25 PM) BUN [7-22 mg/dL] 17 (10/05/15 4:25 PM) B/C Ratio [6-25] 87 mg/dL (10/06/15 7:07 AM) 120 mg/dL *HI* (10/05/15 4:25 PM) Glucose Lvl [70-99 mg/dL] 7.5 g/dL (10/05/15 4:25 PM) Total Protein [6.4-8.4 g/dL] 3.6 g/dL (10/05/15 4:25 PM) Albumin Lvl [3.5-5.0 g/dL] 3.9 g/dL (10/05/15 4:25 PM) Globulin [2.7-4.2 g/dL] 0.9 (10/05/15 4:25 PM) A/G Ratio [0.7-1.6] 8.2 mg/dL *LOW* (10/06/15 7:07 AM) 8.6 mg/dL (10/05/15 4:25 PM) Calcium Lvl [8.5-10.5 mg/dL] 30 unit/L (10/05/15 4:25 PM) ALT [0-65 unit/L] 16 unit/L (10/05/15 4:25 PM) AST [0-37 unit/L] 90 unit/L (10/05/15 4:25 PM) Alk Phos [39-136 unit/L] 0.3 mg/dL (10/05/15 4:25 PM) Bili Total [0.2-1.3 mg/dL] 1Result Comment: [...] 3 Most recent to oldest [Reference Range]: 34 unit/L (10/06/15 7:07 AM) 36 unit/L (10/05/15 11:37 PM) 45 unit/L (10/05/15 4:25 PM) Total CK [12-191 unit/L] <0.5 ng/mL (10/05/15 4:25 PM) CK MB [0.5-3.6 ng/mL] <1.1 (10/05/15 4:25 PM) CK MB Index [0.0-2.5] <0.02 ng/mL (10/06/15 7:07 AM) <0.02 ng/mL (10/05/15 11:37 PM) <0.02 ng/mL (10/05/15 4:25 PM) Troponin-I [0.00-0.40 ng/mL] LIPIDS 1 2 3 Most recent to oldest [Reference Range]: 3.23 *LOW* (10/06/15 7:07 AM) CHD Risk [3.90-5.80] 197 mg/dL (10/06/15 7:07 AM) Chol [<=199 mg/dL] 88 mg/dL (10/06/15 7:07 AM) Trig [<=149 mg/dL] 61 mg/dL (10/06/15 7:07 AM) HDL [>=61 mg/dL] 118 mg/dL *HI* (10/06/15 7:07 AM) LDL (Calculated) [<=99 mg/dL] 18 *NA* (10/06/15 7:07 AM) VLDL URINE AND STOOL 1 2 3 Most recent to oldest [Reference Range]: Clear (10/05/15 5:02 PM) UA Turbidity [Clear] Ltyellow *NA* (10/05/15 5:02 PM) UA Color 8.0 (10/05/15 5:02 PM) UA pH [5.0-8.0] 1.006 (10/05/15 5:02 PM) UA Spec Grav [<=1.030] Negative mg/dL *NA* (10/05/15 5:02 PM) UA Glucose [Negative mg/dL] Negative (10/05/15 5:02 PM) UA Blood [Negative] Negative mg/dL *NA* (10/05/15 5:02 PM) UA Ketones [Negative mg/dL] Negative mg/dL (10/05/15 5:02 PM) UA Protein [Negative mg/dL] <=1.0 mg/dL *NA* (10/05/15 5:02 PM) UA Urobilinogen [0.1-1.0 mg/dL] Negative *NA* (10/05/15 5:02 PM) UA Bili [Negative] Moderate *ABN* (10/05/15 5:02 PM) UA Leuk Est [Negative] Negative (10/05/15 5:02 PM) UA Nitrite [Negative] 2 /HPF (10/05/15 5:02 PM) UA WBC [0-5 /HPF] 2 /HPF (10/05/15 5:02 PM) UA RBC [0-2 /HPF] None Seen *NA* (10/05/15 5:02 PM) UA Sq Epi HEMATOLOGY 1 2 3 Most recent to oldest [Reference Range]: 11.0 K/CMM *HI* (10/05/15 4:25 PM) WBC [3.7-10.4 K/CMM] 4.56 M/CMM (10/05/15 4:25 PM) RBC [4.20-5.40 M/CMM] 13.5 g/dL (10/05/15 4:25 PM) Hgb [12.0-16.0 g/dL] 39.8 % (10/05/15 4:25 PM) Hct [36.0-48.0 %] 87.3 fL (10/05/15 4:25 PM) MCV [80.0-98.0 fL] 29.6 pg (10/05/15 4:25 PM) MCH [27.0-31.0 pg] 33.9 g/dL (10/05/15 4:25 PM) MCHC [32.0-36.0 g/dL] 13.5 % (10/05/15 4:25 PM) RDW [11.5-14.5 %] 347 K/CMM (10/06/15 7:07 AM) 410 K/CMM (10/05/15 4:25 PM) Platelet [133-450 K/CMM] 7.4 fL (10/05/15 4:25 PM) MPV [7.4-10.4 fL] 70.0 % (10/05/15 4:25 PM) Segs [45.0-75.0 %] 18.1 % *LOW* (10/05/15 4:25 PM) Lymphocytes [20.0-40.0 %] 9.3 % (10/05/15 4:25 PM) Monocytes [2.0-12.0 %] 1.7 % (10/05/15 4:25 PM) Eosinophils [0.0-4.0 %] 0.9 % (10/05/15 4:25 PM) Basophils [0.0-1.0 %] 7.7 K/CMM (10/05/15 4:25 PM) Segs-Bands # [1.5-8.1 K/CMM] 2.0 K/CMM (10/05/15 4:25 PM) Lymphocytes # [1.0-5.5 K/CMM] 1.0 K/CMM *HI* (10/05/15 4:25 PM) Monocytes # [0.0-0.8 K/CMM] 0.2 K/CMM (10/05/15 4:25 PM) Eosinophils # [0.0-0.5 K/CMM] 0.1 K/CMM (10/05/15 4:25 PM) Basophils # [0.0-0.2 K/CMM] 9 mm/hr (10/06/15 1:57 PM) Sed Rate [0-20 mm/hr] 12.8 seconds (10/05/15 4:25 PM) PT [12.0-14.7 seconds] 0.93 (10/05/15 4:25 PM) INR [0.85-1.17] 0.22 ug/mL FEU *NA* (10/06/15 1:57 PM) D-Dimer 27.7 seconds (10/05/15 4:25 PM) PTT [22.9-35.8 seconds] Immunizations Given and Recorded Vaccine Date Status Refusal Reason influenza virus vaccine, inactivated1 10/27/13 Given influenza virus vaccine, inactivated2 10/27/13 Given pneumococcal 23-valent vaccine3 07/25/11 Given 1Result Comment: done high dose. Migrated from OBS ; Data migrated from [employer]raase on 08/30/2014. 2Result Comment: fluzone high dose [[id number]]. Migrated from OBS ; Data migrated from [employer]raase on 08/30/2014. 3Result Comment: historical. Migrated from OBS ; Data migrated from [employer]raase on 08/30/2014. Procedures Procedure Date Related Diagnosis Body Site Cataract surgery Excision of vein Tubal ligation Social History Social History Type Response Substance Abuse Use: None. Alcohol Never Smoking Status Never smoker; Exposure to Tobacco Smoke None; Cigarette Smoking Last 365 Days No; Reg Smoking Cessation Counseling No Assessment and Plan Extracted from: Title: Discharge summary Author: Laura Alcantar Date: 10/07/15 Piotr LIM Impression and Plan 1. Acute Chest Pain: R/O ACS/CAD Trops are negative. Cardiology on case. Echo is wnl, cont care, will give flexeril, 2, Back Pain: Likely due to Spinal Stenosis. Stable at this time. 3. Constipation: On medication and we will give one dose of Mag Citrate. 4. Hypertension: On medication. 5. Hyperlipidemia: On medication. DISp: d/c home and f/u with pcp in 1wk Extracted from: Title: IP [id number] Author: Adama Melendrez MD Date: 10/06/15 Impression and Plan Diagnosis Acute chest pain (MTI85-EZ R07.9, Working, Medical). Hyperlipidemia (AKF99-ND E78.5, Working, Medical). Hypertension (HQY36-UI I10, Working, Medical). Spinal stenosis (JJH58-ZV M48.00, Working, Medical). 1. Acute Chest Pain: R/O ACS/CAD Trops are negative. Cardiology on case. 2, Back Pain: Likely due to Spinal Stenosis. Stable at this time. 3. Constipation: On medication and we will give one dose of Mag Citrate. 4. Hypertension: On medication. 5. Hyperlipidemia: On medication.
--- OUTSIDE RECORDS SUMMARY | 2018-04-01 09:25 | XMS REPORT | Summary of Care ---
Author Author [facility] Organization [facility] Address Unknown Phone Unavailable Encounter HQ Erik(RJ) [id number] Date(s): 09/28/15 - 09/28/15 [facility] [address] [place] [address]- Discharge Diagnosis: Acute bronchitis, unspecified Discharge Diagnosis: Hypokalemia Discharge Disposition: Home or Self Care Attending Physician: Gloria Tello DO Vital Signs 1 2 3 Most recent to oldest [Reference Range]: 157.48 cm (09/28/15 5:30 PM) Height 98 DegF (09/28/15 8:24 PM) 98.2 DegF (09/28/15 7:08 PM) 98.2 DegF (09/28/15 5:30 PM) Temperature Oral [96.4-99.1 DegF] 143/76 mmHg *HI* (09/28/15 8:24 PM) 161/80 mmHg *HI* (09/28/15 7:08 PM) 188/87 mmHg *HI* (09/28/15 5:30 PM) Blood Pressure [90-140/60-90 mmHg] 18 BRMIN (09/28/15 8:24 PM) 18 BRMIN (09/28/15 7:50 PM) 19 BRMIN (09/28/15 7:08 PM) Respiratory Rate [14-20 BRMIN] 91 bpm (09/28/15 8:24 PM) 73 bpm (09/28/15 7:08 PM) 68 bpm (09/28/15 5:30 PM) Peripheral Pulse Rate [60-100 bpm] 68.182 kg (09/28/15 5:30 PM) Weight 27.49 m2 (09/28/15 5:30 PM) Body Mass Index Problem List Condition Effective Dates Status Health Status Informant Acute bronchitis1, 2 08/08/13 Resolved Allergic rhinitis3 05/02/13 Active Arthritis(Confirmed) Active Arthritis(Confirmed) Active Asthma4 01/28/13 Active Backache(Confirmed) Active Benign essential 07/09/12 Active hypertension5 Child examination Resolved finding6 Chronic back pain7 02/16/59 Active Chronic headache 05/02/13 Active disorder8 Evaluation finding9 Resolved Gastritis(Confirmed) Resolved Gastroesophageal 08/08/13 Active reflux icvmrqy55 GERD Resolved (gastroesophageal reflux disease)(Confirmed) Gynecologic Resolved nmprwuxmalt66 HTN Active (hypertension)(Confi rmed) Hyperlipidemia(Confi Active rmed) Hyperlipidemia(Confi Active rmed) Hypertension(Confirm Active ed) Impaired fasting 01/16/13 Resolved lbquqktpf68 Impaired glucose 01/16/13 Active fivngvlye94 Influenza 10/27/13 Resolved jccjpgynhne56, 15 Maewolvb13 01/28/13 Active Major depressive 03/24/14 Active pfsqupml95 Migraine(Confirmed) Active Migraine(Confirmed) Active Mixed 12/28/12 Active mnsicllbtlkqxn95 Jmqvvyzwojunhv72 Active Smebsudtbb00 Active Physical examination Resolved hamaqgsuu90 Screening Resolved fgkrcalxihi31 Sleep apnea23 10/27/13 Active 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) Gvtlddq18 05/02/13 Active 1Data migrated from [employer] [...] Reaction Severity Status NKDA Active Medications albuterol 0.083% inhalation solution 2.49 mg, Route: NEB, Drug form: SOLN, ONCE, Dosing Weight 68.182, kg, Priority: STAT, Start date: 09/28/15 19:42:00 CDT, Stop date: 09/28/15 19:42:00 CDT Start Date: 09/28/15 Stop Date: 09/28/15 Status: Completed albuterol 90 mcg/inh inhalation aerosol 2 puff, INHALATION, QID, PRN Wheezing, # 17 gm, 0 Refill(s) Start Date: 09/28/15 Status: Ordered methylPREDNISolone SODium SUCCinate 125 mg, Route: IVP, ONCE, Dosing Weight 68.182, kg, Priority: STAT, Start date: 09/28/15 19:58:00 CDT, Stop date: 09/28/15 19:58:00 CDT Start Date: 09/28/15 Stop Date: 09/28/15 Status: Completed potassium chloride 40 mEq, 2 tab, Route: PO, Drug form: ERTAB, ONCE, Dosing Weight 68.182, kg, Prio rity: STAT, Start date: 09/28/15 19:42:00 CDT, Stop date: 09/28/15 19:42:00 CDT Notes: (Same as: K-Dur 20)"Do Not Crush" With food and full glass of water Start Date: 09/28/15 Stop Date: 09/28/15 Status: Completed predniSONE 50 mg oral tablet 50 mg=1 tab, PO, Daily, X 7 day, # 7 tab, 0 Refill(s) Start Date: 09/28/15 Stop Date: 10/05/15 Status: Ordered Results ELECTROLYTES Most recent to 1 oldest [Reference Range]: Sodium Lvl [135-145 134 mEq/L mEq/L] *LOW* (09/28/15 7:00 PM) Potassium Lvl 3.0 mEq/L 1 [3.5-5.1 mEq/L] *CRIT* (09/28/15 7:00 PM) Chloride Lvl [95-109 99 mEq/L mEq/L] (09/28/15 7:00 PM) CO2 [24-32 mEq/L] 28 mEq/L (09/28/15 7:00 PM) AGAP [10.0-20.0 10.0 mEq/L mEq/L] (09/28/15 7:00 PM) 1Result Comment: Critical Result(s) called to Augustina Lake at 09/28/2015 19:38 by KLS. Read back OK. CHEM PANEL Most recent to 1 oldest [Reference Range]: Creatinine Lvl 0.57 mg/dL [0.50-1.40 mg/dL] (09/28/15 7:00 PM) eGFR 92 mL/min/1.73m2 1 *NA* (09/28/15 7:00 PM) BUN [7-22 mg/dL] 10 mg/dL (09/28/15 7:00 PM) B/C Ratio [6-25] 18 (09/28/15 7:00 PM) Glucose Lvl [70-99 107 mg/dL mg/dL] *HI* (09/28/15 7:00 PM) Total Protein 6.9 g/dL [6.4-8.4 g/dL] (09/28/15 7:00 PM) Albumin Lvl [3.5-5.0 3.7 g/dL g/dL] (09/28/15 7:00 PM) Globulin [2.7-4.2 3.2 g/dL g/dL] (09/28/15 7:00 PM) A/G Ratio [0.7-1.6] 1.2 (09/28/15 7:00 PM) Calcium Lvl 8.5 mg/dL [8.5-10.5 mg/dL] (09/28/15 7:00 PM) ALT [0-65 unit/L] 22 unit/L (09/28/15 7:00 PM) AST [0-37 unit/L] 18 unit/L (09/28/15 7:00 PM) Alk Phos [39-136 79 unit/L unit/L] (09/28/15 7:00 PM) Bili Total [0.2-1.3 0.3 mg/dL mg/dL] (09/28/15 7:00 PM) Amylase Lvl [25-115 39 unit/L unit/L] (09/28/15 7:00 PM) Lipase Lvl [73-393 65 unit/L unit/L] *LOW* (09/28/15:00 PM) 1Result Comment: The eGFR is calculated [...] be mul tiplied by the estimated BMI. HEMATOLOGY Most recent to 1 oldest [Reference Range]: WBC [3.7-10.4 K/CMM] 10.1 K/CMM (09/28/15 7:00 PM) RBC [4.20-5.40 4.12 M/CMM M/CMM] *LOW* (09/28/15:00 PM) Hgb [12.0-16.0 g/dL] 12.2 g/dL (09/28/15:00 PM) Hct [36.0-48.0 %] 36.5 % (09/28/15 7:00 PM) MCV [80.0-98.0 fL] 88.4 fL (09/28/15:00 PM) MCH [27.0-31.0 pg] 29.5 pg (09/28/15 7:00 PM) MCHC [32.0-36.0 33.4 g/dL g/dL] (09/28/15 7:00 PM) RDW [11.5-14.5 %] 13.4 % (09/28/15 7:00 PM) Platelet [133-450 320 K/CMM K/CMM] (09/28/15 7:00 PM) MPV [7.4-10.4 fL] 7.6 fL (09/28/15 7:00 PM) Segs [45.0-75.0 %] 67.9 % (09/28/15 7:00 PM) Lymphocytes 18.6 % [20.0-40.0 %] *LOW* (09/28/15 7:00 PM) Monocytes [2.0-12.0 10.0 % %] (09/28/15 7:00 PM) Eosinophils [0.0-4.0 2.6 % %] (09/28/15 7:00 PM) Basophils [0.0-1.0 0.9 % %] (09/28/15 7:00 PM) Segs-Bands # 6.8 K/CMM [1.5-8.1 K/CMM] (09/28/15 7:00 PM) Lymphocytes # 1.9 K/CMM [1.0-5.5 K/CMM] (09/28/15 7:00 PM) Monocytes # [0.0-0.8 1.0 K/CMM K/CMM] *HI* (09/28/15 7:00 PM) Eosinophils # 0.3 K/CMM [0.0-0.5 K/CMM] (09/28/15 7:00 PM) Basophils # [0.0-0.2 0.1 K/CMM K/CMM] (09/28/15 7:00 PM) PT [12.0-14.7 14.1 seconds seconds] (09/28/15 7:00 PM) INR [0.85-1.17] 1.06 (09/28/15 7:00 PM) PTT [22.9-35.8 29.6 seconds seconds] (09/28/15 7:00 PM) Immunizations Given and Recorded Vaccine Date Status Refusal Reason influenza virus vaccine, inactivated1 10/27/13 Given influenza virus vaccine, inactivated2 10/27/13 Given pneumococcal 23-valent vaccine3 07/25/11 Given 1Result Comment: done high dose. Migrated from OBS ; Data migrated from [employer] on 08/30/2014. 2Result Comment: fluzone high dose [[id number]]. Migrated from OBS ; Data migrated from [employer] on 08/30/2014. 3Result Comment: historical. Migrated from OBS ; Data migrated from [employer] on 08/30/2014. Procedures Procedure Date Related Diagnosis [...]
--- OUTSIDE RECORDS SUMMARY | 2018-04-01 09:26 | XMS REPORT | Summary of Care ---
Author Author [facility] Organization [facility] Address Unknown Phone Unavailable Encounter GABRIEL Valencia(RJ) [id number] Date(s): 12/23/15 - 12/24/[address] [facility] [address] [place] [address]- [phone] Discharge Diagnosis: Chronic pain Discharge Diagnosis: Back pain Discharge Diagnosis: Anxiety Discharge Diagnosis: Hypertension Discharge Disposition: Home or Self Care Attending Physician: Alejandro Landry MD Vital Signs 1 2 3 Most recent to oldest [Reference Range]: 162.56 cm (12/23/15 2:31 PM) Height 97.8 DegF (12/23/15 2:31 PM) Temperature Oral [96.4-99.1 DegF] 159/83 mmHg *HI* (12/23/15 11:36 PM) 188/55 mmHg *HI* (12/23/15 8:32 PM) 160/88 mmHg *HI* (12/23/15 2:31 PM) Blood Pressure [90-140/60-90 mmHg] 19 BRMIN (12/23/15 11:36 PM) 16 BRMIN (12/23/15 8:32 PM) 19 BRMIN (12/23/15 2:31 PM) Respiratory Rate [14-20 BRMIN] 75 bpm (12/23/15 2:31 PM) Peripheral Pulse Rate [60-100 bpm] 61.364 kg (12/23/15 2:31 PM) Weight 23.22 m2 (12/23/15 2:31 PM) Body Mass Index Problem List Condition Effective Dates Status Health Status Informant Acute bronchitis1, 2 08/08/13 Resolved Allergic rhinitis3 05/02/13 Active Arthritis(Confirmed) Active Arthritis(Confirmed) Active Asthma4 01/28/13 Active Backache(Confirmed) Active Benign essential 07/09/12 Active hypertension5 Child examination Resolved finding6 Chronic back pain7 02/16/59 Active Chronic headache 05/02/13 Active disorder8 Evaluation finding9 Resolved Gastritis(Confirmed) Resolved Gastroesophageal 08/08/13 Active reflux qiwwnxc60 GERD Resolved (gastroesophageal reflux disease)(Confirmed) Gynecologic Resolved jpfhhmojdhc60 HTN Active (hypertension)(Confi rmed) HTN - Resolved Hypertension(Confirm ed) Hyperlipidemia(Confi Active rmed) Hyperlipidemia(Confi Active rmed) Hypertension(Confirm Active ed) Impaired fasting 01/16/13 Resolved texwsvxiu50 Impaired glucose 01/16/13 Active jzwmrjuku33 Influenza 10/27/13 Resolved jjrhlbypwgn49, 15 Jjoqfvaq80 01/28/13 Active Major depressive 03/24/14 Active tiumbrft95 Migraine(Confirmed) Active Migraine(Confirmed) Resolved Migraine(Confirmed) Active Mixed 12/28/12 Active dsucfquxpardmq43 Qgeabulqpqrjcb77 Active Qanwjyvdhg92 Active Physical examination Resolved jsbtrbygy68 Screening Resolved tqricmuxfsj82 Sleep apnea23 10/27/13 Active 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) Ac DVT/embl low ext Resolved NOS(Confirmed) Gkpbhsm45 05/02/13 Active 1Data migrated from [employer] [...] Substance Reaction Severity Status NKDA Active Medications Ativan 0.5 mg, Route: IVP, Drug form: INJ, ONCE, Dosing Weight 61.364, kg, Priority: ST AT, Start date: 12/23/15 21:41:00 [employer], Stop date: 12/23/15 21:41:00 [employer] Start Date: 12/23/15 Stop Date: 12/23/15 Status: Completed morphine Sulfate 4 mg, Route: IVP, ONCE, Dosing Weight 61.364, kg, Priority: STAT, Start date: 21:27:00 [employer] PAD, Stop date: 12/23/15 21:27:00 BU[employer] PAD Start Date: 12/23/15 Stop Date: 12/23/15 Status: Completed morphine Sulfate 2 mg, Route: IVP, ONCE, Dosing Weight 61.364, kg, Priority: STAT, Start date: 22:20:00 BUFFER INFLATED PAD, Stop date: 12/23/15 22:20:00 BU[employer] IN[employer]ATED PAD Start Date: 12/23/15 Stop Date: 12/23/15 Status: Completed Phoenix 5/325 oral tablet 1 tab, Route: PO, Drug Form: TAB, Dosing Weight 61.364, kg, ONCE, STAT, Start da te: 12/23/15 22:20:00 BUFFER IN[employer]ATED PAD, Stop date: 12/23/15 22:20:00 BU[employer] PAD Start Date: 12/23/15 Stop Date: 12/23/15 Status: Completed NS (Bolus) IV 1,000 mL, 1,000 ml/hr, Infuse Over: 1 hr, Route: IV, ONCE, Priority: STAT, Dosin g Weight 61.364 kg, Start date: 12/23/15 21:27:00 BUFFER INFLATED PAD, Duration: 1 doses or time s, Stop date: 12/23/15 21:27:00 BUFFER INFLATED PAD Start Date: 12/23/15 Stop Date: 12/23/15 Status: Completed Results ELECTROLYTES Most recent to 1 oldest [Reference Range]: Sodium Lvl [135-145 135 mEq/L mEq/L] (12/23/15 2:56 PM) Potassium Lvl 3.7 mEq/L [3.5-5.1 mEq/L] (12/23/15 2:56 PM) Chloride Lvl [95-109 100 mEq/L mEq/L] (12/23/15 2:56 PM) CO2 [24-32 mEq/L] 24 mEq/L (12/23/15 2:56 PM) AGAP [10.0-20.0 14.7 mEq/L mEq/L] (12/23/15 2:56 PM) CHEM PANEL Most recent to 1 oldest [Reference Range]: Creatinine Lvl 0.51 mg/dL [0.50-1.40 mg/dL] (12/23/15 2:56 PM) eGFR 96 mL/min/1.73m2 1 *NA* (12/23/15 2:56 PM) BUN [7-22 mg/dL] 9 mg/dL (12/23/15 2:56 PM) B/C Ratio [6-25] 18 (12/23/15 2:56 PM) Glucose Lvl [70-99 119 mg/dL mg/dL] *HI* (12/23/15 2:56 PM) Total Protein 7.6 g/dL [6.4-8.4 g/dL] (12/23/15 2:56 PM) Albumin Lvl [3.5-5.0 3.7 g/dL g/dL] (12/23/15 2:56 PM) Globulin [2.7-4.2 3.9 g/dL g/dL] (12/23/15 2:56 PM) A/G Ratio [0.7-1.6] 0.9 (12/23/15 2:56 PM) Calcium Lvl 9.1 mg/dL [8.5-10.5 mg/dL] (12/23/15 2:56 PM) ALT [0-65 unit/L] 19 unit/L (12/23/15 2:56 PM) AST [0-37 unit/L] 18 unit/L (12/23/15 2:56 PM) Alk Phos [39-136 82 unit/L unit/L] (12/23/15 2:56 PM) Bili Total [0.2-1.3 0.3 mg/dL mg/dL] (12/23/15 2:56 PM) 1Result Comment: The eGFR is calculated [...] 1 oldest [Reference Range]: Total CK [12-191 169 unit/L unit/L] (12/23/15 2:56 PM) CK MB [0.5-3.6 1.4 ng/mL ng/mL] (12/23/15 2:56 PM) CK MB Index 0.8 [0.0-2.5] (12/23/15 2:56 PM) Troponin-I <0.02 ng/mL [0.00-0.40 ng/mL] (12/23/15 2:56 PM) BNP [<=100 pg/mL] 85 pg/mL (12/23/15 2:56 PM) HEMATOLOGY Most recent to 1 oldest [Reference Range]: WBC [3.7-10.4 K/CMM] 9.3 K/CMM (12/23/15 2:56 PM) RBC [4.20-5.40 4.47 M/CMM M/CMM] (12/23/15 2:56 PM) Hgb [12.0-16.0 g/dL] 12.7 g/dL (12/23/15 2:56 PM) Hct [36.0-48.0 %] 38.6 % (12/23/15 2:56 PM) MCV [80.0-98.0 fL] 86.4 fL (12/23/15 2:56 PM) MCH [27.0-31.0 pg] 28.3 pg (12/23/15 2:56 PM) MCHC [32.0-36.0 32.8 g/dL g/dL] (12/23/15 2:56 PM) RDW [11.5-14.5 %] 13.3 % (12/23/15 2:56 PM) Platelet [133-450 327 K/CMM K/CMM] (12/23/15 2:56 PM) MPV [7.4-10.4 fL] 7.5 fL (12/23/15 2:56 PM) Segs [45.0-75.0 %] 66.7 % (12/23/15 2:56 PM) Lymphocytes 21.7 % [20.0-40.0 %] (12/23/15 2:56 PM) Monocytes [2.0-12.0 8.1 % %] (12/23/15 2:56 PM) Eosinophils [0.0-4.0 2.8 % %] (12/23/15 2:56 PM) Basophils [0.0-1.0 0.7 % %] (12/23/15 2:56 PM) Segs-Bands # 6.2 K/CMM [1.5-8.1 K/CMM] (12/23/15 2:56 PM) Lymphocytes # 2.0 K/CMM [1.0-5.5 K/CMM] (12/23/15 2:56 PM) Monocytes # [0.0-0.8 0.8 K/CMM K/CMM] (12/23/15 2:56 PM) Eosinophils # 0.3 K/CMM [0.0-0.5 K/CMM] (12/23/15 2:56 PM) Basophils # [0.0-0.2 0.1 K/CMM K/CMM] (12/23/15 2:56 PM) PT [12.0-14.7 13.0 seconds seconds] (12/23/15 2:56 PM) INR [0.85-1.17] 0.96 (12/23/15 2:56 PM) PTT [22.9-35.8 29.8 seconds seconds] (12/23/15 2:56 PM) Immunizations Given and Recorded Vaccine Date Status Refusal Reason influenza virus vaccine, inactivated1 10/27/13 Given influenza virus vaccine, inactivated2 10/27/13 Given pneumococcal 13-valent vaccine 10/30/15 Given pneumococcal 23-valent vaccine3 07/25/11 Given 1Result Comment: done high dose. Migrated from OBS ; Data migrated from [employer] on 08/30/2014. 2Result Comment: fluzone high dose [[id number]]. Migrated from OBS ; Data migrated from [employer] on 08/30/2014. 3Result Comment: historical. Migrated from OBS ; Data migrated from [employer] on 08/30/2014. Procedures Procedure Date Related Diagnosis [...]
--- OUTSIDE RECORDS SUMMARY | 2018-04-01 09:26 | XMS REPORT | Summary of Care ---
Author Author [facility] Organization [facility] Address Unknown Phone Unavailable Encounter GABRIEL Valencia(RJ) [id number] Date(s): 12/22/15 - 12/22/15 [facility] [address] [place] [address]- Discharge Diagnosis: Itching Discharge Diagnosis: Chronic back pain Discharge Disposition: Home or Self Care Attending Physician: Audrey Bartholomew DO Vital Signs Most recent to 1 2 oldest [Reference Range]: Height 162.56 cm (12/22/15 12:03 PM) Temperature Oral 98.6 DegF 98.6 DegF [96.4-99.1 DegF] (12/22/15 2:44 PM) (12/22/15 12:03 PM) Blood Pressure 103/49 mmHg 115/65 mmHg [90-140/60-90 mmHg] (12/22/15 2:44 PM) (12/22/15 12:03 PM) Respiratory Rate 20 BRMIN 15 BRMIN [14-20 BRMIN] (12/22/15 2:44 PM) (12/22/15 12:03 PM) Peripheral Pulse 71 bpm 62 bpm Rate [60-100 bpm] (12/22/15 2:44 PM) (12/22/15 12:03 PM) Weight 60.909 kg (12/22/15 12:03 PM) Body Mass Index 23.05 m2 (12/22/15 12:03 PM) Problem List Condition Effective Dates Status Health Status Informant Acute bronchitis1, 2 08/08/13 Resolved Allergic rhinitis3 05/02/13 Active Arthritis(Confirmed) Active Arthritis(Confirmed) Active Asthma4 01/28/13 Active Backache(Confirmed) Active Benign essential 07/09/12 Active hypertension5 Child examination Resolved finding6 Chronic back pain7 1/1/60 Active Chronic headache 05/02/13 Active disorder8 Evaluation finding9 Resolved Gastritis(Confirmed) Resolved Gastroesophageal 08/08/13 Active reflux vpdcxmo49 GERD Resolved (gastroesophageal reflux disease)(Confirmed) Gynecologic Resolved wzwytmhkswc30 HTN Active (hypertension)(Confi rmed) HTN - Resolved Hypertension(Confirm ed) Hyperlipidemia(Confi Active rmed) Hyperlipidemia(Confi Active rmed) Hypertension(Confirm Active ed) Impaired fasting 01/16/13 Resolved pytrqzmsh07 Impaired glucose 01/16/13 Active wnhimbhqs23 Influenza 10/27/13 Resolved , 15 Tcncqvvy72 01/28/13 Active Major depressive 03/24/14 Active ftkongoi14 Migraine(Confirmed) Active Migraine(Confirmed) Resolved Migraine(Confirmed) Active Mixed 12/28/12 Active tcdeyormldqjjn94 Udmsjaocqxkxly07 Active Uavrulxkan65 Active Physical examination Resolved peupyzvce71 Screening Resolved ynasbfoxrdf62 Sleep apnea23 10/27/13 Active 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) Ac DVT/embl low ext Resolved NOS(Confirmed) Tlrfooc32 05/02/13 Active 1Data migrated from [employer] [...] Reaction Severity Status NKDA Active Medications acetaminophen-codeine #3 1 tab, Route: PO, Drug Form: TAB, Dosing Weight 60.909, kg, ONCE, STAT, Start da te: 12/22/15 13:09:00 CDT, Stop date: 12/22/15 13:09:00 CDT Start Date: 12/22/15 Stop Date: 12/22/15 Status: Completed Benadryl 25 mg oral tablet 25 mg=1 tab, PO, TID, PRN as needed for itching, X 3 day, # 9 tab, 0 Refill(s) Start Date: 12/22/15 Stop Date: 12/25/15 Status: Ordered diphenhydrAMINE 25 mg, Route: IVP, ONCE, Dosing Weight 60.909, kg, Priority: STAT, Start date: 1 02/20/15 13:09:00 CDT, Stop date: 12/22/15 13:09:00 CDT Start Date: 12/22/15 Stop Date: 12/22/15 Status: Completed Results ELECTROLYTES Most recent to 1 oldest [Reference Range]: Sodium Lvl [135-145 134 mEq/L mEq/L] *LOW* (12/22/15 12:38 PM) Potassium Lvl 3.7 mEq/L [3.5-5.1 mEq/L] (12/22/15 12:38 PM) Chloride Lvl [95-109 98 mEq/L mEq/L] (12/22/15 12:38 PM) CO2 [24-32 mEq/L] 27 mEq/L (12/22/15 12:38 PM) AGAP [10.0-20.0 12.7 mEq/L mEq/L] (12/22/15 12:38 PM) CHEM PANEL Most recent to 1 oldest [Reference Range]: Creatinine Lvl 0.55 mg/dL [0.50-1.40 mg/dL] (12/22/15 12:38 PM) eGFR 93 mL/min/1.73m2 1 *NA* (12/22/15:38 PM) BUN [7-22 mg/dL] 11 mg/dL (12/22/15 12:38 PM) B/C Ratio [6-25] 20 (12/22/15 12:38 PM) Glucose Lvl [70-99 98 mg/dL mg/dL] (12/22/15:38 PM) Total Protein 7.0 g/dL [6.4-8.4 g/dL] (12/22/15 12:38 PM) Albumin Lvl [3.5-5.0 3.4 g/dL g/dL] *LOW* (12/22/15:38 PM) Globulin [2.7-4.2 3.6 g/dL g/dL] (12/22/15:38 PM) A/G Ratio [0.7-1.6] 0.9 (12/22/15:38 PM) Calcium Lvl 8.5 mg/dL [8.5-10.5 mg/dL] (12/22/15 12:38 PM) ALT [0-65 unit/L] 19 unit/L (12/22/15 12:38 PM) AST [0-37 unit/L] 18 unit/L (12/22/15 12:38 PM) Alk Phos [39-136 76 unit/L unit/L] (12/22/15 12:38 PM) Bili Total [0.2-1.3 0.3 mg/dL mg/dL] (12/22/15 12:38 PM) 1Result Comment: The eGFR is calculated [...] 1 oldest [Reference Range]: Total CK [12-191 277 unit/L unit/L] *HI* (12/22/15 12:38 PM) CK MB [0.5-3.6 1.9 ng/mL ng/mL] (12/22/15 12:38 PM) CK MB Index 0.7 [0.0-2.5] (12/22/15 12:38 PM) Troponin-I <0.02 ng/mL [0.00-0.40 ng/mL] (12/22/15 12:38 PM) HEMATOLOGY Most recent to 1 oldest [Reference Range]: WBC [3.7-10.4 K/CMM] 6.9 K/CMM (12/22/15 12:38 PM) RBC [4.20-5.40 4.12 M/CMM M/CMM] *LOW* (12/22/15 12:38 PM) Hgb [12.0-16.0 g/dL] 11.6 g/dL *LOW* (12/22/15 12:38 PM) Hct [36.0-48.0 %] 35.3 % *LOW* (12/22/15 12:38 PM) MCV [80.0-98.0 fL] 85.6 fL (12/22/15 12:38 PM) MCH [27.0-31.0 pg] 28.2 pg (12/22/15 12:38 PM) MCHC [32.0-36.0 33.0 g/dL g/dL] (12/22/15 12:38 PM) RDW [11.5-14.5 %] 13.2 % (12/22/15 12:38 PM) Platelet [133-450 303 K/CMM K/CMM] (12/22/15 12:38 PM) MPV [7.4-10.4 fL] 7.7 fL (12/22/15 12:38 PM) Segs [45.0-75.0 %] 58.6 % (12/22/15 12:38 PM) Lymphocytes 26.9 % [20.0-40.0 %] (12/22/15 12:38 PM) Monocytes [2.0-12.0 8.8 % %] (12/22/15 12:38 PM) Eosinophils [0.0-4.0 4.5 % %] *HI* (12/22/15 12:38 PM) Basophils [0.0-1.0 1.2 % %] *HI* (12/22/15 12:38 PM) Segs-Bands # 4.1 K/CMM [1.5-8.1 K/CMM] (12/22/15 12:38 PM) Lymphocytes # 1.9 K/CMM [1.0-5.5 K/CMM] (12/22/15 12:38 PM) Monocytes # [0.0-0.8 0.6 K/CMM K/CMM] (12/22/15 12:38 PM) Eosinophils # 0.3 K/CMM [0.0-0.5 K/CMM] (12/22/15 12:38 PM) Basophils # [0.0-0.2 0.1 K/CMM K/CMM] (12/22/15 12:38 PM) PT [12.0-14.7 13.7 seconds seconds] (12/22/15 12:38 PM) INR [0.85-1.17] 1.03 (12/22/15 12:38 PM) PTT [22.9-35.8 29.0 seconds seconds] (12/22/15 12:38 PM) Immunizations Given and Recorded Vaccine Date Status Refusal Reason influenza virus vaccine, inactivated1 10/27/13 Given influenza virus vaccine, inactivated2 10/27/13 Given pneumococcal 13-valent vaccine 10/30/15 Given pneumococcal 23-valent vaccine3 07/25/11 Given 1Result Comment: done high dose. Migrated from OBS ; Data migrated from [employer] on 08/30/2014. 2Result Comment: fluzone high dose [[id number]]. Migrated from OBS ; Data migrated from [employer] on 08/30/2014. 3Result Comment: historical. Migrated from OBS ; Data migrated from [employer] on 08/30/2014. Procedures Procedure Date Related Diagnosis [...]
--- OUTSIDE RECORDS SUMMARY | 2018-04-01 09:26 | XMS REPORT | Summary of Care ---
Author Author [facility] Organization [facility] Address Unknown Phone Unavailable Encounter GABRIEL Valencia(RJ) [id number] Date(s): 01/17/17 - 01/17/17 [facility] [address] [place] [address] [phone] Discharge Diagnosis: Abdominal pain in female. Discharge Diagnosis: Acute lower urinary tract infection Discharge Disposition: Home or Self Care Attending Physician: Megha Tan MD Vital Signs 1 2 3 Most recent to oldest [Reference Range]: 98.1 DegF (01/17/17 6:45 PM) 98.2 DegF (01/17/17 3:32 PM) Temperature Oral [96.4-99.1 DegF] 166/71 mmHg *HI* (01/17/17 9:12 PM) 156/57 mmHg *HI* (01/17/17 6:45 PM) 179/61 mmHg *HI* (01/17/17 5:45 PM) Blood Pressure [90-140/60-90 mmHg] 18 BRMIN (01/17/17 9:12 PM) 17 BRMIN (01/17/17 6:45 PM) 17 BRMIN (01/17/17 5:45 PM) Respiratory Rate [14-20 BRMIN] 60 bpm (01/17/17 3:32 PM) Peripheral Pulse Rate [60-100 bpm] 70.455 kg (01/17/17 3:32 PM) Weight Problem List Condition Effective Dates Status Health Status Informant Acute bronchitis1, 2 08/08/13 Resolved Allergic rhinitis3 05/02/13 Active Arthritis(Confirmed) Active Arthritis(Confirmed) Active Asthma4 01/28/13 Active Backache(Confirmed) Active Benign essential 07/09/12 Active hypertension5 Child examination Resolved finding6 Chronic back pain7 02/16/59 Active Chronic headache 3/17/14 Active disorder8 Diverticulitis(Confi Active rmed) Evaluation finding9 Resolved Gastritis(Confirmed) Resolved Gastroesophageal 08/08/13 Active reflux qvaaiaj72 GERD Resolved (gastroesophageal reflux disease)(Confirmed) Gynecologic Resolved nblcjdnexel11 HTN Active (hypertension)(Confi rmed) HTN - Resolved Hypertension(Confirm ed) Hyperlipidemia(Confi Active rmed) Hyperlipidemia(Confi Active rmed) Hypertension(Confirm Active ed) Impaired fasting 01/16/13 Resolved Impaired glucose 01/16/13 Active wymczphxw21 Influenza 10/27/13 Resolved pcacwxtxnoz52, 15 Jyndecim94 01/28/13 Active Major depressive 03/24/14 Active llorwiiq32 Migraine(Confirmed) Active Migraine(Confirmed) Resolved Migraine(Confirmed) Active Mixed 12/28/12 Active vehrsaqdofkopv77 Yxmaygzpwfrrol13 Active Ugmsjtusup91 Active Physical examination Resolved axvdfcypn35 Screening Resolved Sleep apnea23 10/27/13 Active 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) Ac DVT/embl low ext Resolved NOS(Confirmed) Zusuwzy97 05/02/13 Active 1Data migrated from [employer] [...] mg oral tablet 1 tab, PO, BID, for UTI, X 7 day, # 14 tab, 0 Refill(s) Start Date: 01/17/17 Stop Date: 01/24/17 Status: Ordered morphine Sulfate 4 mg, 1 mL, Route: IVP, Drug form: SOLN, ONCE, Dosing Weight 70.455, kg, Priorit y: STAT, Start date: 01/17/17 16:49:00 [employer], Stop date: 01/17/17 16:49:00 [employer] Notes: (Same as:MORPhine Sulfate) Start Date: 01/17/17 Stop Date: 01/17/17 Status: Completed morphine Sulfate 4 mg, Route: IM, ONCE, Dosing Weight 70.455, kg, Priority: STAT, Start date: 04/04 20:11:00 [employer], Stop date: 01/17/17 20:11:00 [employer] Start Date: 01/17/17 Stop Date: 01/17/17 Status: Completed NS (Bolus) IV 1,000 mL, 1,000 ml/hr, Infuse Over: 1 hr, Route: IV, 1,000, Drug form: INJ, ONCE , Priority: STAT, Dosing Weight 70.455 kg, Start date: 01/17/17 16:50:00 [employer], St op date: 01/17/17 16:50:00 [employer] Start Date: 01/17/17 Stop Date: 01/17/17 Status: Completed ondansetron 4 mg, 2 mL, Route: IVP, Drug form: INJ, ONCE, Dosing Weight 70.455, kg, Priority : STAT, Start date: 01/17/17 15:36:00 [employer], Stop date: 01/17/17 15:36:00 [employer] Notes: (Same as: Zofran) MEDICATION WASTE Product Size: 4 mgProduct Was guillaume: ___ mg Start Date: 01/17/17 Stop Date: 01/17/17 Status: Completed Rocephin 1 gm, Route: IVPB, Drug form: PDR/INJ, ONCE, Dosing Weight 70.455, kg, Priority: STAT, Start date: 01/17/17 19:42:00 [employer], Stop date: 01/17/17 19:42:00 [employer], ABX Indication: Urinary Tract Infection Start Date: 01/17/17 Stop Date: 01/17/17 Status: Completed Saline Flush 0.9% 10 mL, Route: IVP, Drug Form: INJ, Dosing Weight 70.455, kg, PRN, PRN Line Flush , Start date: 01/17/17 15:36:00 [employer], Duration: 30 day, Stop date: 02/16/17 15:35 :00 [employer] Notes: (Same as: BD Posiflush) Start Date: 01/17/17 Stop Date: 01/17/17 Status: Discontinued Tylenol 650 mg, 2 tab, Route: PO, Drug form: TAB, ONCE, Dosing Weight 70.455, kg, Priori ty: STAT, Start date: 01/17/17 19:54:00 [employer], Stop date: 01/17/17 19:54:00 [employer] Notes: Do not exceed 4 gm/day. (Same as: Tylenol) Start Date: 01/17/17 Stop Date: 01/17/17 Status: Completed Zofran ODT 4 mg, Route: PO, Drug form: TABDIS, ONCE, Dosing Weight 70.455, kg, Priority: ST AT, Start date: 01/17/17 20:34:00 [employer], Stop date: 01/17/17 20:34:00 [employer] Start Date: 01/17/17 Stop Date: 01/17/17 Status: Completed Results ELECTROLYTES Most recent to 1 oldest [Reference Range]: Sodium Lvl [135-145 136 mEq/L mEq/L] (01/17/17 4:55 PM) Potassium Lvl 3.8 mEq/L [3.5-5.1 mEq/L] (01/17/17 4:55 PM) Chloride Lvl [95-109 102 mEq/L mEq/L] (01/17/17 4:55 PM) CO2 [24-32 mEq/L] 26 mEq/L (01/17/17 4:55 PM) AGAP [10.0-20.0 11.8 mEq/L mEq/L] (01/17/17 4:55 PM) CHEM PANEL Most recent to 1 oldest [Reference Range]: Creatinine Lvl 0.65 mg/dL [0.50-1.40 mg/dL] (01/17/17 4:55 PM) eGFR 88 mL/min/1.73m2 1 *NA* (01/17/17 4:55 PM) BUN [7-22 mg/dL] 9 mg/dL (01/17/17 4:55 PM) B/C Ratio [6-25] 14 (01/17/17 4:55 PM) Glucose Lvl [70-99 129 mg/dL mg/dL] *HI* (01/17/17 4:55 PM) Total Protein 7.8 g/dL [6.4-8.4 g/dL] (01/17/17 4:55 PM) Albumin Lvl [3.5-5.0 3.8 g/dL g/dL] (01/17/17 4:55 PM) Globulin [2.7-4.2 4.0 g/dL g/dL] (01/17/17 4:55 PM) A/G Ratio [0.7-1.6] 1.0 (01/17/17 4:55 PM) Calcium Lvl 9.0 mg/dL [8.5-10.5 mg/dL] (01/17/17 4:55 PM) Phosphorus [2.5-4.5 3.0 mg/dL mg/dL] (01/17/17 4:55 PM) Magnesium Lvl 2.4 mg/dL [1.8-2.4 mg/dL] (01/17/17 4:55 PM) ALT [0-65 unit/L] 17 unit/L (01/17/17 4:55 PM) AST [0-37 unit/L] 13 unit/L (01/17/17 4:55 PM) Alk Phos [39-136 103 unit/L unit/L] (01/17/17 4:55 PM) Bili Total [0.2-1.3 0.3 mg/dL mg/dL] (01/17/17 4:55 PM) Lipase Lvl [73-393 66 unit/L unit/L] *LOW* (01/17/17 4:55 PM) 1Result Comment: The eGFR is calculated [...] oldest [Reference Range]: UA Turbidity [Clear] Clear (01/17/17 5:51 PM) UA Color Ltyellow *NA* (01/17/17 5:51 PM) UA pH [5.0-8.0] 6.0 (01/17/17 5:51 PM) UA Spec Grav 1.011 [<=1.030] (01/17/17 5:51 PM) UA Glucose [Negative Negative mg/dL mg/dL] *NA* (01/17/17 5:51 PM) UA Blood [Negative] Small *ABN* (01/17/17 5:51 PM) UA Ketones [Negative Negative mg/dL mg/dL] *NA* (01/17/17 5:51 PM) UA Protein [Negative Negative mg/dL mg/dL] (01/17/17 5:51 PM) UA Urobilinogen <=1.0 mg/dL [0.1-1.0 mg/dL] *NA* (01/17/17 5:51 PM) UA Bili [Negative] Negative *NA* (01/17/17 5:51 PM) UA Leuk Est Moderate [Negative] *ABN* (01/17/17 5:51 PM) UA Nitrite Positive [Negative] *ABN* (01/17/17 5:51 PM) UA WBC [0-5 /HPF] 5 /HPF (01/17/17 5:51 PM) UA RBC [0-2 /HPF] 2 /HPF (01/17/17 5:51 PM) UA Sq Epi [Few /LPF] Occasional /LPF *NA* (01/17/17 5:51 PM) UA Hyal Cast [0-2 1 /LPF /LPF] (01/17/17 5:51 PM) UA Mucus [None Seen Few /LPF /LPF] *NA* (01/17/17 5:51 PM) HEMATOLOGY Most recent to 1 oldest [Reference Range]: WBC [3.7-10.4 K/CMM] 7.7 K/CMM (01/17/17 4:55 PM) RBC [4.20-5.40 4.67 M/CMM M/CMM] (01/17/17 4:55 PM) Hgb [12.0-16.0 g/dL] 13.0 g/dL (01/17/17 4:55 PM) Hct [36.0-48.0 %] 39.3 % (01/17/17 4:55 PM) MCV [80.0-98.0 fL] 84.3 fL (01/17/17 4:55 PM) MCH [27.0-31.0 pg] 27.8 pg (01/17/17 4:55 PM) MCHC [32.0-36.0 32.9 g/dL g/dL] (01/17/17 4:55 PM) RDW [11.5-14.5 %] 14.3 % (01/17/17 4:55 PM) Platelet [133-450 263 K/CMM K/CMM] (01/17/17 4:55 PM) MPV [7.4-10.4 fL] 8.0 fL (01/17/17 4:55 PM) Segs [45.0-75.0 %] 69.9 % (01/17/17 4:55 PM) Lymphocytes 21.1 % [20.0-40.0 %] (01/17/17 4:55 PM) Monocytes [2.0-12.0 6.0 % %] (01/17/17 4:55 PM) Eosinophils [0.0-4.0 2.3 % %] (01/17/17 4:55 PM) Basophils [0.0-1.0 0.7 % %] (01/17/17 4:55 PM) Segs-Bands # 5.4 K/CMM [1.5-8.1 K/CMM] (01/17/17 4:55 PM) Lymphocytes # 1.6 K/CMM [1.0-5.5 K/CMM] (01/17/17 4:55 PM) Monocytes # [0.0-0.8 0.5 K/CMM K/CMM] (01/17/17 4:55 PM) Eosinophils # 0.2 K/CMM [0.0-0.5 K/CMM] (01/17/17 4:55 PM) Basophils # [0.0-0.2 0.1 K/CMM K/CMM] (01/17/17 4:55 PM) PT [12.0-14.7 12.7 seconds seconds] (01/17/17 4:55 PM) INR [0.85-1.17] 0.95 (01/17/17 4:55 PM) PTT [22.9-35.8 25.3 seconds seconds] (01/17/17 4:55 PM) Immunizations Given and Recorded Vaccine Date Status Refusal Reason pneumococcal 13-valent vaccine 10/30/15 Given influenza virus vaccine, inactivated1 10/27/13 Given influenza virus vaccine, inactivated2 10/27/13 Given pneumococcal 23-valent vaccine3 07/25/11 Given 1Result Comment: done high dose. Migrated from OBS ; Data migrated from [email or web address] on 08/30/2014. 2Result Comment: fluzone high dose [[id number]]. Migrated from OBS ; Data migrated from [email or web address] on 08/30/2014. 3Result Comment: historical. Migrated from OBS ; Data migrated from [email or web address] on 08/30/2014. Procedures Procedure Date Related Diagnosis [...]
--- OUTSIDE RECORDS SUMMARY | 2018-04-01 09:26 | XMS REPORT | Summary of Care ---
Author Author [facility] Organization [facility] Address Unknown Phone Unavailable Encounter GABRIEL Valencia(RJ) [id number] Date(s): 01/24/17 - 01/25/17 [facility] [address] [place] [address]- [phone] Discharge Diagnosis: Acute UTI Discharge Diagnosis: Neck pain Discharge Diagnosis: Acute bilateral back pain Discharge Disposition: Home or Self Care Attending Physician: René Arndt MD Vital Signs 1 2 3 Most recent to oldest [Reference Range]: 162.56 cm (01/24/17 7:52 PM) Height 97.9 DegF (01/25/17 3:30 AM) 98.3 DegF (01/24/17 7:52 PM) Temperature Oral [96.4-99.1 DegF] 131/69 mmHg (01/25/17 3:30 AM) 145/77 mmHg *HI* (01/25/17 12:53 AM) 170/80 mmHg *HI* (01/24/17 7:52 PM) Blood Pressure [90-140/60-90 mmHg] 17 BRMIN (01/25/17 3:30 AM) 16 BRMIN (01/25/17 12:53 AM) 20 BRMIN (01/24/17 7:52 PM) Respiratory Rate [14-20 BRMIN] 85 bpm (01/25/17 3:30 AM) 81 bpm (01/25/17 12:53 AM) 69 bpm (01/24/17 7:52 PM) Peripheral Pulse Rate [60-100 bpm] 72.727 kg (01/24/17 7:52 PM) Weight 27.52 m2 (01/24/17 7:52 PM) Body Mass Index Problem List Condition Effective Dates Status Health Status Informant Acute bronchitis1, 2 08/08/13 Resolved Allergic rhinitis3 05/02/13 Active Arthritis(Confirmed) Active Arthritis(Confirmed) Active Asthma4 01/28/13 Active Backache(Confirmed) Active Benign essential 07/09/12 Active hypertension5 Child examination Resolved finding6 Chronic back pain7 02/16/59 Active Chronic headache 05/02/13 Active disorder8 Diverticulitis(Confi Active rmed) Evaluation finding9 Resolved Gastritis(Confirmed) Resolved Gastroesophageal 08/08/13 Active reflux GERD Resolved (gastroesophageal reflux disease)(Confirmed) Gynecologic Resolved hwhgetnreyx38 HTN Active (hypertension)(Confi rmed) HTN - Resolved Hypertension(Confirm ed) Hyperlipidemia(Confi Active rmed) Hyperlipidemia(Confi Active rmed) Hypertension(Confirm Active ed) Impaired fasting 01/16/13 Resolved cayncivuf94 Impaired glucose 01/16/13 Active yskpzjbks58 Influenza 10/27/13 Resolved upuhhetlesb31, 15 Ursneoba95 01/28/13 Active Major depressive 03/24/14 Active ahlbpski32 Migraine(Confirmed) Active Migraine(Confirmed) Resolved Migraine(Confirmed) Active Mixed 12/28/12 Active fifvwpkflspphh36 Qiusymtrkvljbm99 Active Yiqzcrhhsz80 Active Physical examination Resolved jczktlaho64 Screening Resolved kzyvdvvhkum81 Sleep apnea23 10/27/13 Active 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) Ac DVT/embl low ext Resolved NOS(Confirmed) Neoymqv74 05/02/13 Active 1Data migrated from [employer] [...] Substance Reaction Severity Status NKDA Active Medications cefTRIAXone + sterile water 10 mL 1 gm, Route: IV, ONCE, Dosing Weight 72.727, kg, Priority: STAT, Start date: 12/02 0:52:00 COMPUTER OPERATIONS SUPERVISOR, Stop date: 01/25/17 0:52:00 COMPUTER OPERATIONS SUPERVISOR, ABX Indication: Urinary Trac t Infection Notes: (Same As: Rocephin).Use with 100 mL NS and infuse over 30 min MEDICA TION WASTE Product Size: 1000 mgProduct Wasted: ___ mg Start Date: 01/25/17 Stop Date: 01/25/17 Status: Completed Keflex 500 mg oral capsule 500 mg=1 cap, PO, QID, X 5 day, # 20 cap, 0 Refill(s) Start Date: 01/25/17 Stop Date: 01/30/17 Status: Ordered morphine Sulfate 2 mg, Route: IVP, ONCE, Dosing Weight 72.727, kg, Priority: STAT, Start date: 2:20:00 COMPUTER OPERATIONS SUPERVISOR, Stop date: 01/25/17 2:20:00 COMPUTER OPERATIONS SUPERVISOR Start Date: 01/25/17 Stop Date: 01/25/17 Status: Completed Saline Flush 0.9% 10 mL, Route: IVP, Drug Form: INJ, Dosing Weight 70.455, kg, PRN, PRN Line Flush , Start date: 01/24/17 19:55:00 COMPUTER OPERATIONS SUPERVISOR, Duration: 30 day, Stop date: 01/08/18 19:54 :00 COMPUTER OPERATIONS SUPERVISOR Notes: (Same as: BD Posiflush) Start Date: 01/24/17 Stop Date: 01/25/17 Status: Discontinued Sodium Chloride 0.9% (Bolus) IV 1,000 mL, 1000 ml/hr, Infuse Over: 1 hr, Route: IV, 1,000, Drug form: INJ, ONCE, Priority: STAT, Dosing Weight 72.727 kg, Start date: 01/25/17 0:52:00 COMPUTER OPERATIONS SUPERVISOR, Stop date: 01/25/17 0:52:00 COMPUTER OPERATIONS SUPERVISOR Start Date: 01/25/17 Stop Date: 01/25/17 Status: Completed Tylenol 650 mg, Route: PO, Drug form: TAB, ONCE, Dosing Weight 72.727, kg, Priority: STA T, Start date: 01/25/17 0:51:00 COMPUTER OPERATIONS SUPERVISOR, Stop date: 01/25/17 0:51:00 COMPUTER OPERATIONS SUPERVISOR Start Date: 01/25/17 Stop Date: 01/25/17 Status: Completed Ultram 50 mg oral tablet 25 mg=0.5 tab, PO, Q6H, PRN Pain Score 6-10, X 5 day, # 12 tab, 0 Refill(s) Start Date: 01/25/17 Stop Date: 01/30/17 Status: Ordered Zofran 4 mg, Route: IVP, Drug form: INJ, ONCE, Dosing Weight 72.727, kg, Priority: STAT , Start date: 01/25/17 2:20:00 COMPUTER OPERATIONS SUPERVISOR, Stop date: 01/25/17 2:20:00 COMPUTER OPERATIONS SUPERVISOR Start Date: 01/25/17 Stop Date: 01/25/17 Status: Completed Results ELECTROLYTES Most recent to 1 oldest [Reference Range]: Sodium Lvl [135-145 135 mEq/L mEq/L] (01/25/17 1:19 AM) Potassium Lvl 3.5 mEq/L [3.5-5.1 mEq/L] (01/25/17 1:19 AM) Chloride Lvl [95-109 100 mEq/L mEq/L] (01/25/17 1:19 AM) CO2 [24-32 mEq/L] 24 mEq/L (01/25/17 1:19 AM) AGAP [10.0-20.0 14.5 mEq/L mEq/L] (01/25/17 1:19 AM) CHEM PANEL Most recent to 1 oldest [Reference Range]: Creatinine Lvl 0.61 mg/dL [0.50-1.40 mg/dL] (01/25/17 1:19 AM) eGFR 90 mL/min/1.73m2 1 *NA* (01/25/17 1:19 AM) BUN [7-22 mg/dL] 10 mg/dL (01/25/17 1:19 AM) B/C Ratio [6-25] 16 (01/25/17 1:19 AM) Glucose Lvl [70-99 87 mg/dL mg/dL] (01/25/17 1:19 AM) Total Protein 7.5 g/dL [6.4-8.4 g/dL] (01/25/17: AM) Albumin Lvl [3.5-5.0 3.8 g/dL g/dL] (01/25/17:19 AM) Globulin [2.7-4.2 3.7 g/dL g/dL] (01/25/17: AM) A/G Ratio [0.7-1.6] 1.0 (01/25/17 1:19 AM) Calcium Lvl 8.4 mg/dL [8.5-10.5 mg/dL] *LOW* (01/25/17:19 AM) ALT [0-65 unit/L] 17 unit/L (01/25/17 1:19 AM) AST [0-37 unit/L] 13 unit/L (01/25/17 1:19 AM) Alk Phos [39-136 103 unit/L unit/L] (01/25/17 1:19 AM) Bili Total [0.2-1.3 0.2 mg/dL mg/dL] (01/25/17 1:19 AM) 1Result Comment: The eGFR is calculated [...] 1 oldest [Reference Range]: Total CK [12-191 63 unit/L unit/L] (01/25/17 1:19 AM) CK MB [0.5-3.6 1.1 ng/mL ng/mL] (01/25/17 1:19 AM) CK MB Index 1.7 [0.0-2.5] (01/25/17 1:19 AM) Troponin-I 0.05 ng/mL [0.00-0.40 ng/mL] (01/25/17 1:19 AM) URINE AND STOOL Most recent to 1 oldest [Reference Range]: UA Turbidity [Clear] Clear (01/25/17 1:19 AM) UA Color Ltyellow *NA* (01/25/17:19 AM) UA pH [5.0-8.0] 6.0 (01/25/17 1:19 AM) UA Spec Grav 1.013 [<=1.030] (01/25/17 1:19 AM) UA Glucose [Negative Negative mg/dL mg/dL] *NA* (01/25/17:19 AM) UA Blood [Negative] Negative (01/25/17 1:19 AM) UA Ketones [Negative Negative mg/dL mg/dL] *NA* (01/25/17:19 AM) UA Protein [Negative Negative mg/dL mg/dL] (01/25/17 1:19 AM) UA Urobilinogen <=1.0 mg/dL [0.1-1.0 mg/dL] *NA* (01/25/17:19 AM) UA Bili [Negative] Negative *NA* (01/25/17:19 AM) UA Leuk Est Small [Negative] *ABN* (01/25/17:19 AM) UA Nitrite Negative [Negative] (01/25/17 1:19 AM) UA WBC [0-5 /HPF] 4 /HPF (01/25/17 1:19 AM) UA RBC [0-2 /HPF] 2 /HPF (01/25/17 1:19 AM) UA Sq Epi [Few /LPF] Occasional /LPF *NA* (01/25/17 1:19 AM) UA Hyal Cast [0-2 1 /LPF /LPF] (01/25/17 1:19 AM) HEMATOLOGY Most recent to 1 oldest [Reference Range]: WBC [3.7-10.4 K/CMM] 9.2 K/CMM (01/25/17 1:19 AM) RBC [4.20-5.40 4.49 M/CMM M/CMM] (01/25/17 1:19 AM) Hgb [12.0-16.0 g/dL] 12.8 g/dL (01/25/17 1:19 AM) Hct [36.0-48.0 %] 37.8 % (01/25/17 1:19 AM) MCV [80.0-98.0 fL] 84.2 fL (01/25/17 1:19 AM) MCH [27.0-31.0 pg] 28.5 pg (01/25/17 1:19 AM) MCHC [32.0-36.0 33.8 g/dL g/dL] (01/25/17 1:19 AM) RDW [11.5-14.5 %] 14.2 % (01/25/17 1:19 AM) Platelet [133-450 297 K/CMM K/CMM] (01/25/17 1:19 AM) MPV [7.4-10.4 fL] 7.9 fL (01/25/17 1:19 AM) Segs [45.0-75.0 %] 49.3 % (01/25/17 1:19 AM) Lymphocytes 36.9 % [20.0-40.0 %] (01/25/17 1:19 AM) Monocytes [2.0-12.0 8.5 % %] (01/25/17 1:19 AM) Eosinophils [0.0-4.0 4.2 % %] *HI* (01/25/17 1:19 AM) Basophils [0.0-1.0 1.1 % %] *HI* (01/25/17 1:19 AM) Segs-Bands # 4.5 K/CMM [1.5-8.1 K/CMM] (01/25/17 1:19 AM) Lymphocytes # 3.4 K/CMM [1.0-5.5 K/CMM] (01/25/17 1:19 AM) Monocytes # [0.0-0.8 0.8 K/CMM K/CMM] (01/25/17 1:19 AM) Eosinophils # 0.4 K/CMM [0.0-0.5 K/CMM] (01/25/17 1:19 AM) Basophils # [0.0-0.2 0.1 K/CMM K/CMM] (01/25/17 1:19 AM) Immunizations Given and Recorded Vaccine Date Status Refusal Reason pneumococcal 13-valent vaccine 10/30/15 Given influenza virus vaccine, inactivated1 10/27/13 Given influenza virus vaccine, inactivated2 10/27/13 Given pneumococcal 23-valent vaccine3 07/25/11 Given 1Result Comment: done high dose. Migrated from OBS ; Data migrated from [employer] on 08/30/2014. 2Result Comment: fluzone high dose [[id number]]. Migrated from OBS ; Data migrated from [employer] on 08/30/2014. 3Result Comment: historical. Migrated from OBS ; Data migrated from [employer] on 08/30/2014. Procedures Procedure Date Related Diagnosis [...]
--- OUTSIDE RECORDS SUMMARY | 2018-04-01 09:26 | XMS REPORT | Summary of Care ---
Author Author [facility] Organization [facility] Address Unknown Phone Unavailable Encounter GABRIEL Valencia(RJ) [id number] Date(s): 12/12/16 - 12/12/16 [facility] [address] [place] [address]- Discharge Diagnosis: Nausea, vomiting, and diarrhea Discharge Disposition: Home or Self Care Attending Physician: Tyrell Pelayo DO Vital Signs 1 2 3 Most recent to oldest [Reference Range]: 162.56 cm (12/12/16 1:05 PM) Height 98.6 DegF (12/12/16 7:23 PM) 98.5 DegF (12/12/16 1:05 PM) Temperature Oral [96.4-99.1 DegF] 130/67 mmHg (12/12/16 7:17 PM) 119/66 mmHg (12/12/16 6:00 PM) 146/69 mmHg *HI* (12/12/16 4:55 PM) Blood Pressure [90-140/60-90 mmHg] 18 BRMIN (12/12/16 7:17 PM) 19 BRMIN (12/12/16 6:00 PM) 19 BRMIN (12/12/16 4:55 PM) Respiratory Rate [14-20 BRMIN] 80 bpm (12/12/16 7:17 PM) 69 bpm (12/12/16 6:00 PM) 76 bpm (12/12/16 4:55 PM) Peripheral Pulse Rate [60-100 bpm] 72.727 kg (12/12/16 1:05 PM) Weight 27.52 m2 (12/12/16 1:05 PM) Body Mass Index Problem List Condition [...] GERD Resolved (gastroesophageal reflux disease)(Confirmed) Gynecologic Resolved vkdiqgxhrsk02 HTN Active (hypertension)(Confi rmed) HTN - Resolved Hypertension(Confirm ed) Hyperlipidemia(Confi Active rmed) Hyperlipidemia(Confi Active rmed) Hypertension(Confirm Active ed) Impaired fasting 01/16/13 Resolved uwfnzuuzm82 Impaired glucose 01/16/13 Active hzyptfxmn69 Influenza 10/27/13 Resolved cuzaerxmktg26, 15 Siupeuyc77 01/28/13 Active Major depressive 03/24/14 Active qnqwkulb74 Migraine(Confirmed) Active Migraine(Confirmed) Resolved Migraine(Confirmed) Active Mixed 12/28/12 Active lseinspefzetyc46 Qtzrwklsqgfkcl38 Active Ztezevjooc44 Active Physical examination Resolved mldlecmoc42 Screening Resolved uzyrvzugcft65 Sleep apnea23 10/27/13 Active 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) Ac DVT/embl low ext Resolved NOS(Confirmed) Uixvmfa36 05/02/13 Active 1Data migrated from [employer] [...] Weight 72.727, kg, Priority: STAT, Start date: 17:02:00 CDT, Stop date: 12/12/16 17:02:00 CDT Start Date: 12/12/16 Stop Date: 12/12/16 Status: Completed NS (Bolus) IV 1,000 mL, 1,000 ml/hr, Infuse Over: 1 hr, Route: IV, 1,000, Drug form: INJ, ONCE , Priority: STAT, Dosing Weight 72.727 kg, Start date: 12/12/16 13:09:00 CDT, Du ration: 1 doses or times, Stop date: 12/12/16 13:09:00 CDT Start Date: 12/12/16 Stop Date: 12/12/16 Status: Completed Saline Flush 0.9% 10 mL, Route: IVP, Drug Form: INJ, Dosing Weight 61.364, kg, PRN, PRN Line Flush , Start date: 12/12/16 13:07:00 CDT, Duration: 30 day, Stop date: 01/11/17 12:06 :00 [employer]OD HEEL [employer] INSERTER Notes: (Same as: BD Posiflush) Start Date: 12/12/16 Stop Date: 12/12/16 Status: Discontinued Zofran 4 mg, 2 mL, Route: IVP, Drug form: INJ, ONCE, Dosing Weight 72.727, kg, Priority : STAT, Start date: 12/12/16 13:09:00 CDT, Stop date: 12/12/16 13:09:00 CDT Notes: (Same as: Zofran) MEDICATION WASTE Product Size: 4 mgProduct Was guillaume: ___ mg Start Date: 12/12/16 Stop Date: 12/12/16 Status: Completed Zofran ODT 4 mg oral tablet, disintegrating 4 mg=1 tab, PO, BID, PRN Nausea and Vomiting, Dissolve tab under tongue, # 10 ta b, 0 Refill(s) Start Date: 12/12/16 Stop Date: 12/17/16 Status: Ordered Results ELECTROLYTES Most recent to 1 oldest [Reference Range]: Sodium Lvl [135-145 136 mEq/L mEq/L] (12/12/16 1:44 PM) Potassium Lvl 3.5 mEq/L [3.5-5.1 mEq/L] (12/12/16 1:44 PM) Chloride Lvl [95-109 101 mEq/L mEq/L] (12/12/16 1:44 PM) CO2 [24-32 mEq/L] 26 mEq/L (12/12/16 1:44 PM) AGAP [10.0-20.0 12.5 mEq/L mEq/L] (12/12/16 1:44 PM) CHEM PANEL Most recent to 1 oldest [Reference Range]: Creatinine Lvl 0.76 mg/dL [0.50-1.40 mg/dL] (12/12/16 1:44 PM) eGFR 78 mL/min/1.73m2 1 *NA* (12/12/16 1:44 PM) BUN [7-22 mg/dL] 10 mg/dL (12/12/16 1:44 PM) B/C Ratio [6-25] 13 (12/12/16 1:44 PM) Glucose Lvl [70-99 135 mg/dL mg/dL] *HI* (12/12/16 1:44 PM) Total Protein 7.9 g/dL [6.4-8.4 g/dL] (12/12/16 1:44 PM) Albumin Lvl [3.5-5.0 3.5 g/dL g/dL] (12/12/16 1:44 PM) Globulin [2.7-4.2 4.4 g/dL g/dL] *HI* (12/12/16 1:44 PM) A/G Ratio [0.7-1.6] 0.8 (12/12/16 1:44 PM) Calcium Lvl 8.5 mg/dL [8.5-10.5 mg/dL] (12/12/16 1:44 PM) ALT [0-65 unit/L] 18 unit/L (12/12/16 1:44 PM) AST [0-37 unit/L] 16 unit/L (12/12/16 1:44 PM) Alk Phos [39-136 109 unit/L unit/L] (12/12/16 1:44 PM) Bili Total [0.2-1.3 0.6 mg/dL mg/dL] (12/12/16 1:44 PM) Amylase Lvl [25-115 33 unit/L unit/L] (12/12/16 1:44 PM) Lipase Lvl [73-393 60 unit/L unit/L] *LOW* (12/12/16 1:44 PM) 1Result Comment: The eGFR is calculated [...] 1 oldest [Reference Range]: Total CK [12-191 60 unit/L unit/L] (12/12/16 1:44 PM) CK MB [0.5-3.6 1.4 ng/mL ng/mL] (12/12/16 1:44 PM) CK MB Index 2.3 [0.0-2.5] (12/12/16 1:44 PM) Troponin-I 0.04 ng/mL [0.00-0.40 ng/mL] (12/12/16 1:44 PM) URINE AND STOOL Most recent to 1 oldest [Reference Range]: UA Turbidity [Clear] Clear (12/12/16 2:29 PM) UA Color [Yellow] Yellow *NA* (12/12/16 2:29 PM) UA pH [5.0-8.0] 7.0 (12/12/16 2:29 PM) UA Spec Grav 1.013 [<=1.030] (12/12/16 2:29 PM) UA Glucose [Negative Negative mg/dL mg/dL] *NA* (12/12/16 2:29 PM) UA Blood [Negative] Moderate *ABN* (12/12/16 2:29 PM) UA Ketones [Negative Negative mg/dL mg/dL] *NA* (12/12/16 2:29 PM) UA Protein [Negative Negative mg/dL mg/dL] (12/12/16 2:29 PM) UA Urobilinogen <=1.0 mg/dL [0.1-1.0 mg/dL] *NA* (12/12/16 2:29 PM) UA Bili [Negative] Negative *NA* (12/12/16 2:29 PM) UA Leuk Est Negative [Negative] (12/12/16 2:29 PM) UA Nitrite Positive [Negative] *ABN* (12/12/16 2:29 PM) UA WBC [0-5 /HPF] <1 /HPF (12/12/16 2:29 PM) UA RBC [0-2 /HPF] 3 /HPF *HI* (12/12/16 2:29 PM) UA Sq Epi [Few /LPF] Occasional /LPF *NA* (12/12/16 2:29 PM) HEMATOLOGY Most recent to 1 oldest [Reference Range]: WBC [3.7-10.4 K/CMM] 11.8 K/CMM *HI* (12/12/16 1:44 PM) RBC [4.20-5.40 4.74 M/CMM M/CMM] (12/12/16 1:44 PM) Hgb [12.0-16.0 g/dL] 13.2 g/dL (12/12/16 1:44 PM) Hct [36.0-48.0 %] 39.8 % (12/12/16 1:44 PM) MCV [80.0-98.0 fL] 83.9 fL (12/12/16 1:44 PM) MCH [27.0-31.0 pg] 27.9 pg (12/12/16 1:44 PM) MCHC [32.0-36.0 33.3 g/dL g/dL] (12/12/16 1:44 PM) RDW [11.5-14.5 %] 14.3 % (12/12/16 1:44 PM) Platelet [133-450 312 K/CMM K/CMM] (12/12/16 1:44 PM) MPV [7.4-10.4 fL] 8.0 fL (12/12/16 1:44 PM) Segs [45.0-75.0 %] 86.7 % *HI* (12/12/16 1:44 PM) Lymphocytes 8.9 % [20.0-40.0 %] *LOW* (12/12/16 1:44 PM) Monocytes [2.0-12.0 3.1 % %] (12/12/16 1:44 PM) Eosinophils [0.0-4.0 0.9 % %] (12/12/16 1:44 PM) Basophils [0.0-1.0 0.4 % %] (12/12/16 1:44 PM) Segs-Bands # 10.2 K/CMM [1.5-8.1 K/CMM] *HI* (12/12/16 1:44 PM) Lymphocytes # 1.1 K/CMM [1.0-5.5 K/CMM] (12/12/16 1:44 PM) Monocytes # [0.0-0.8 0.4 K/CMM K/CMM] (12/12/16 1:44 PM) Eosinophils # 0.1 K/CMM [0.0-0.5 K/CMM] (12/12/16 1:44 PM) Basophils # [0.0-0.2 0.1 K/CMM K/CMM] (12/12/16 1:44 PM) PT [12.0-14.7 13.2 seconds seconds] (12/12/16 1:44 PM) INR [0.85-1.17] 1.00 (12/12/16 1:44 PM) PTT [22.9-35.8 29.1 seconds seconds] (12/12/16 1:44 PM) Immunizations Given and Recorded Vaccine Date Status Refusal Reason influenza virus vaccine, inactivated1 10/27/13 Given influenza virus vaccine, inactivated2 10/27/13 Given pneumococcal 13-valent vaccine 10/30/15 Given pneumococcal 23-valent vaccine3 07/25/11 Given 1Result Comment: done high dose. Migrated from OBS ; Data migrated from [employer] on 08/30/2014. 2Result Comment: fluzone high dose [[id number]]. Migrated from OBS ; Data migrated from [employer] on 08/30/2014. 3Result Comment: historical. Migrated from OBS ; Data migrated from [employer] on 08/30/2014. Procedures Procedure Date Related Diagnosis [...]
--- OUTSIDE RECORDS SUMMARY | 2018-04-01 09:26 | XMS REPORT | Summary of Care ---
Author Author [facility] Organization [facility] Address Unknown Phone Unavailable Encounter HQ Erik(RJ) [id number] Date(s): 09/01/16 - 09/02/16 [facility] [address] [place] [address]- [phone] Discharge Diagnosis: Hypertension Discharge Diagnosis: Headache Discharge Disposition: Home or Self Care Attending Physician: Audrey Bartholomew DO Vital Signs 1 2 3 Most recent to oldest [Reference Range]: 149.86 cm (09/01/16 12:51 PM) Height 98 DegF (09/01/16 8:04 PM) 97.5 DegF (09/01/16 4:42 PM) Temperature Oral [96.4-99.1 DegF] 142/66 mmHg *HI* (09/01/16 10:56 PM) 192/75 mmHg *HI* (09/01/16 9:24 PM) 171/117 mmHg *HI* (09/01/16 8:04 PM) Blood Pressure [90-140/60-90 mmHg] 13 BRMIN *LOW* (09/01/16 10:56 PM) 14 BRMIN (09/01/16 9:24 PM) 24 BRMIN *HI* (09/01/16 8:04 PM) Respiratory Rate [14-20 BRMIN] 67 bpm (09/01/16 4:42 PM) 65 bpm (09/01/16 12:51 PM) Peripheral Pulse Rate [60-100 bpm] 61.364 kg (09/01/16 12:51 PM) Weight 27.32 m2 (09/01/16 12:51 PM) Body Mass Index Problem List Condition Effective Dates Status Health Status Informant Acute bronchitis1, 2 08/08/13 Resolved Allergic rhinitis3 05/02/13 Active Arthritis(Confirmed) Active Arthritis(Confirmed) Active Asthma4 01/28/13 Active Backache(Confirmed) Active Benign essential 07/09/12 Active hypertension5 Child examination Resolved finding6 Chronic back pain7 02/16/59 Active Chronic headache 05/02/13 Active disorder8 Evaluation finding9 Resolved Gastritis(Confirmed) Resolved Gastroesophageal 08/08/13 Active reflux omcpcyx10 GERD Resolved (gastroesophageal reflux disease)(Confirmed) Gynecologic Resolved vvocjmdvxhv41 HTN Active (hypertension)(Confi rmed) HTN - Resolved Hypertension(Confirm ed) Hyperlipidemia(Confi Active rmed) Hyperlipidemia(Confi Active rmed) Hypertension(Confirm Active ed) Impaired fasting 01/16/13 Resolved hzbjevjei97 Impaired glucose 01/16/13 Active xyxjjvngk39 Influenza 10/27/13 Resolved ygirosazaed10, 15 Yltswucv53 01/28/13 Active Major depressive 03/24/14 Active jrscaylh69 Migraine(Confirmed) Active Migraine(Confirmed) Resolved Migraine(Confirmed) Active Mixed 12/28/12 Active eefizndcournwa10 Wcuygkgyqfykic80 Active Ihpkmobdrn54 Active Physical examination Resolved besvhetak85 Screening Resolved ulbvvskmghv35 Sleep apnea23 10/27/13 Active 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) Ac DVT/embl low ext Resolved NOS(Confirmed) Laymrlh43 05/02/13 Active 1Data migrated from [employer] [...] 61.364, kg, ONCE, STAT, Start da te: 09/01/16 20:17:00 CDT, Stop date: 09/01/16 20:17:00 CDT Notes: (Same as: Hyrum 325/5) Do not exceed 4gm/day of acetaminophen. Start Date: 09/01/16 Stop Date: 09/01/16 Status: Completed cloNIDine 0.1 mg oral tablet 0.1 mg, 1 tab, Route: PO, Drug form: TAB, ONCE, Dosing Weight 61.364, kg, Priori ty: STAT, Start date: 09/01/16 21:45:00 CDT, Stop date: 09/01/16 21:45:00 CDT Notes: (Same As: Catapres) Start Date: 09/01/16 Stop Date: 09/01/16 Status: Completed metoclopramide 10 mg, 2 mL, Route: IVP, Drug form: INJ, ONCE, Dosing Weight 61.364, kg, Priorit y: STAT, Start date: 09/01/16 20:17:00 CDT, Stop date: 09/01/16 20:17:00 CDT Notes: (Same as: Reglan) Start Date: 09/01/16 Stop Date: 09/01/16 Status: Completed Saline Flush 0.9% 10 mL, Route: IVP, Drug Form: INJ, Dosing Weight 61.364, kg, PRN, PRN Line Flush , Start date: 09/01/16 12:51:00 CDT, Duration: 30 day, Stop date: 10/01/16 12:50 :00 CDT Notes: (Same as: BD Posiflush) Start Date: 09/01/16 Stop Date: 09/02/16 Status: Discontinued sodium chloride 0.9% 1000 ml INJ 1,000 mL 1,000 mL, Rate: 75 ml/hr, Infuse over: 13.3 hr, Route: IV, Dosing Weight 61.364 kg, Total Volume: 1,000, Priority: STAT, Start date: 09/01/16 20:17:00 CDT, Dura tion: 1 doses or times, Stop date: 09/02/16 9:34:00 CDT Start Date: 09/01/16 Stop Date: 09/01/16 Status: Completed Results ELECTROLYTES Most recent to 1 oldest [Reference Range]: Sodium Lvl [135-145 136 mEq/L mEq/L] (09/01/16 2:38 PM) Potassium Lvl 3.7 mEq/L [3.5-5.1 mEq/L] (09/01/16 2:38 PM) Chloride Lvl [95-109 100 mEq/L mEq/L] (09/01/16 2:38 PM) CO2 [24-32 mEq/L] 29 mEq/L (09/01/16 2:38 PM) AGAP [10.0-20.0 10.7 mEq/L mEq/L] (09/01/16 2:38 PM) CHEM PANEL Most recent to 1 oldest [Reference Range]: Creatinine Lvl 0.64 mg/dL [0.50-1.40 mg/dL] (09/01/16 2:38 PM) eGFR 88 mL/min/1.73m2 1 *NA* (09/01/16 2:38 PM) BUN [7-22 mg/dL] 7 mg/dL (09/01/16 2:38 PM) B/C Ratio [6-25] 11 (09/01/16 2:38 PM) Glucose Lvl [70-99 118 mg/dL mg/dL] *HI* (09/01/16 2:38 PM) Total Protein 7.5 g/dL [6.4-8.4 g/dL] (09/01/16 2:38 PM) Albumin Lvl [3.5-5.0 3.7 g/dL g/dL] (09/01/16 2:38 PM) Globulin [2.7-4.2 3.8 g/dL g/dL] (09/01/16 2:38 PM) A/G Ratio [0.7-1.6] 1.0 (09/01/16 2:38 PM) Calcium Lvl 9.0 mg/dL [8.5-10.5 mg/dL] (09/01/16 2:38 PM) Phosphorus [2.5-4.5 3.0 mg/dL mg/dL] (09/01/16 2:38 PM) Magnesium Lvl 2.4 mg/dL [1.8-2.4 mg/dL] (09/01/16 2:38 PM) ALT [0-65 unit/L] 20 unit/L (09/01/16 2:38 PM) AST [0-37 unit/L] 17 unit/L (09/01/16 2:38 PM) Alk Phos [39-136 90 unit/L unit/L] (09/01/16 2:38 PM) Bili Total [0.2-1.3 0.4 mg/dL mg/dL] (09/01/16 2:38 PM) Lipase Lvl [73-393 54 unit/L unit/L] *LOW* (09/01/16 2:38 PM) 1Result Comment: The eGFR is calculated [...] 1 oldest [Reference Range]: Total CK [12-191 92 unit/L unit/L] (09/01/16 2:38 PM) CK MB [0.5-3.6 1.2 ng/mL ng/mL] (09/01/16 2:38 PM) CK MB Index 1.3 [0.0-2.5] (09/01/16 2:38 PM) Troponin-I 0.02 ng/mL [0.00-0.40 ng/mL] (09/01/16 2:38 PM) BNP [<=100 pg/mL] 127 pg/mL *HI* (09/01/16 2:38 PM) URINE AND STOOL Most recent to 1 oldest [Reference Range]: UA Turbidity [Clear] Clear (09/01/16 4:18 PM) UA Color Ltyellow *NA* (09/01/16 4:18 PM) UA pH [5.0-8.0] 7.0 (09/01/16 4:18 PM) UA Spec Grav 1.012 [<=1.030] (09/01/16 4:18 PM) UA Glucose [Negative Negative mg/dL mg/dL] *NA* (09/01/16 4:18 PM) UA Blood [Negative] Negative (09/01/16 4:18 PM) UA Ketones [Negative Negative mg/dL mg/dL] *NA* (09/01/16 4:18 PM) UA Protein [Negative Negative mg/dL mg/dL] (09/01/16 4:18 PM) UA Urobilinogen <=1.0 mg/dL [0.1-1.0 mg/dL] *NA* (09/01/16 4:18 PM) UA Bili [Negative] Negative *NA* (09/01/16 4:18 PM) UA Leuk Est Negative [Negative] (09/01/16 4:18 PM) UA Nitrite Negative [Negative] (09/01/16 4:18 PM) UA WBC [0-5 /HPF] 1 /HPF (09/01/16 4:18 PM) UA Sq Epi None Seen *NA* (09/01/16 4:18 PM) UA Mucus [None Seen Few /LPF /LPF] *NA* (09/01/16 4:18 PM) HEMATOLOGY Most recent to 1 oldest [Reference Range]: WBC [3.7-10.4 K/CMM] 9.9 K/CMM (09/01/16 2:38 PM) RBC [4.20-5.40 4.53 M/CMM M/CMM] (09/01/16 2:38 PM) Hgb [12.0-16.0 g/dL] 12.7 g/dL (09/01/16 2:38 PM) Hct [36.0-48.0 %] 38.2 % (09/01/16 2:38 PM) MCV [80.0-98.0 fL] 84.3 fL (09/01/16 2:38 PM) MCH [27.0-31.0 pg] 28.0 pg (09/01/16 2:38 PM) MCHC [32.0-36.0 33.2 g/dL g/dL] (09/01/16 2:38 PM) RDW [11.5-14.5 %] 13.3 % (09/01/16 2:38 PM) Platelet [133-450 306 K/CMM K/CMM] (09/01/16 2:38 PM) MPV [7.4-10.4 fL] 8.1 fL (09/01/16 2:38 PM) Segs [45.0-75.0 %] 68.6 % (09/01/16 2:38 PM) Lymphocytes 23.6 % [20.0-40.0 %] (09/01/16 2:38 PM) Monocytes [2.0-12.0 6.2 % %] (09/01/16 2:38 PM) Eosinophils [0.0-4.0 0.6 % %] (09/01/16 2:38 PM) Basophils [0.0-1.0 1.0 % %] (09/01/16 2:38 PM) Segs-Bands # 6.8 K/CMM [1.5-8.1 K/CMM] (09/01/16 2:38 PM) Lymphocytes # 2.3 K/CMM [1.0-5.5 K/CMM] (09/01/16 2:38 PM) Monocytes # [0.0-0.8 0.6 K/CMM K/CMM] (09/01/16 2:38 PM) Eosinophils # 0.1 K/CMM [0.0-0.5 K/CMM] (09/01/16 2:38 PM) Basophils # [0.0-0.2 0.1 K/CMM K/CMM] (09/01/16 2:38 PM) PT [12.0-14.7 13.4 seconds seconds] (09/01/16 2:38 PM) INR [0.85-1.17] 1.00 (09/01/16 2:38 PM) PTT [22.9-35.8 30.3 seconds seconds] (09/01/16 2:38 PM) Immunizations Given and Recorded Vaccine Date Status Refusal Reason influenza virus vaccine, inactivated1 10/27/13 Given influenza virus vaccine, inactivated2 10/27/13 Given pneumococcal 13-valent vaccine 10/30/15 Given pneumococcal 23-valent vaccine3 07/25/11 Given 1Result Comment: done high dose. Migrated from OBS ; Data migrated from [employer] on 08/30/2014. 2Result Comment: fluzone high dose [[id number]]. Migrated from OBS ; Data migrated from [employer] on 08/30/2014. 3Result Comment: historical. Migrated from OBS ; Data migrated from [employer] on 08/30/2014. Procedures Procedure Date Related Diagnosis [...]
--- OUTSIDE RECORDS SUMMARY | 2018-04-01 09:27 | XMS REPORT ---
Author Author [facility] Address Unknown Phone Unavailable Care Team Providers Care Printing Machine Operator Name Role Phone UNKNOWN, REFFERING PP Unavailable EUGENE, ALMAZ Unavailable Unavailable AFUWAPE, LUKUMAN Unavailable Unavailable Problems This patient has no known problems. Allergies, Adverse Reactions, Alerts This patient has no known allergies or adverse reactions. Medications This patient has no known medications. Encounters Start Date/Time End Date/Time Encounter Type Admission Type Attending Clinicians Care Facility Care Department Encounter ID 2016-11-28 16:40:00 2016-11-28 16:40:00 Emergency [facility] [id number] 2016-10-16 14:45:00 2016-10-16 14:45:00 Emergency [facility] [id number] 2016-10-16 14:35:00 2016-10-16 14:35:00 Emergency [facility] [id number] Results Test Description Test Time Test Comments Text Results Atomic Results Result Comments CT HEAD OR BRAIN WO CONTRAST 2016-10-16 17:25:15 CT HEAD WITHOUT CONTRASTCLINICAL HISTORY: S09.8XXA: OTHER SPECIFIED INJURIES OF HEAD, INITIALENCOUNTER COMPARISON: None available. TECHNIQUE: 5 mm axial images of the brain were obtained withoutcontrast. Coronal and sagittal reformats were obtained. FINDINGS: No acute intracranial hemorrhage or abnormal extra-axial fluidcollection is identified. There is moderate cerebral volume loss withcompensatory widening of the sulci and ventricles. The choroid plexusis calcified. No mass, mass effect, or midline shift is present.The cranial vault and skull base are intact. The paranasal si nuses andmastoid air cells are pneumatized and well-aerated. IMPRESSION:1. No acute intracranial hemorrhage.2. Moderate chronic cerebral volume loss.Location: R16 Urinalysis Complete 2016-09-10 20:06:00 Color (test code=COLOR) Straw Yellow,Straw,Pl yellow Clarity (test code=CLAR) Clear Clear Specific [place] (test code=SPGR) 1.007 1.001-1.035 pH (test code=PH) 7.0 5.0-9.0 Ketone (test code=KET) Negative mg/dL Negative Glucose (test code=GLUCUR) Negative mg/dL Negative Protein (test code=PROT) Negative mg/dL Negative Bilirubin (test code=BILI) Negative mg/dL Negative Occult Blood (test code=UDOB) Negative Negative Urobilinogen (test code=UROB) 0.2 mg/dL 0.2-1.0 Nitrite (test code=NIT) Negative Negative Leuk Esterase (test code=LEUK) Negative Negative Micros Exam (test code=MEXAM) Not indicated CBC with [id number] 18:17:00* Test Item Value Reference Range Comments WBC (test code=WBC) 8.0 K/cumm 4.4-10.5 RBC (test code=RBC) 4.42 M/cumm 3.75-5.20 Hemoglobin (test code=HGB) 12.3 gm/dL 12.2-14.8 Hematocrit (test code=HCT) 38.4 % 36.5-44.4 MCV (test code=MCV) 87.0 fL 80-100 MCH (test code=MCH) 27.9 pg 27.0-32.5 MCHC (test code=MCHC) 32.0 g/dL 32.0-37.5 RDW (test code=RDW) 14.5 % 11.5-14.5 Platelet Count (test code=PLTCT) 280 K/cumm 140-440 MPV (test code=MPV) 9.1 fL Diff Method (test code=DIFFM) Auto Neutrophil (test code=NEUT) 67.1 % 36-70 Lymphocyte (test code=LYMPH) 22.9 % 12-44 Monocyte (test code=MONO) 5.8 % 0-11 Eosinophil (test code=EOS) 3.7 % 0-7 Basophil (test code=BASO) 0.6 % 0-2 Neutro Abs (test code=ANEUT) 5.4 K/cumm 1.6-7.4 Lymph Abs (test code=ALYMPH) 1.8 K/cumm 0.5-4.6 [place] Abs (test code=AMONO) 0.5 K/cumm 0.0-1.2 Eos Abs (test code=AEOS) 0.29 K/cumm 0.00-0.74 Baso Abs (test code=ABASO) 0.0 K/cumm 0.00-0.21 Comprehensive Metabolic [id number] 18:16:00* Test Item Value Reference Range Comments Sodium (test code=NA) 136 mmol/L 135-145 Potassium (test code=K) 4.7 mmol/L 3.5-5.1 Chloride (test code=CL) 100 mmol/L 98-105 Carbon Dioxide (test code=CO2) 27 mmol/L 22-29 Glucose (test code=GLU) 114 mg/dL 70-115 Blood Urea Nitrogen (test code=BUN) 9 mg/dL 8-23 Creatinine (test code=CREAT) 0.7 mg/dL 0.5-0.9 Calcium (test code=CA) 9.0 mg/dL 8.3-10.5 Prot Total (test code=TP) 7.2 g/dL 6.4-8.3 Albumin (test code=ALB) 4.2 g/dL 3.5-5.2 A/G Ratio (test code=AGRATIO) 1.4 Ratio Globulin (test code=GLOB) 3.0 2.9-3.1 Bili Total (test code=TBIL) 0.2 mg/dL 0.1-0.9 Alk Phos (test code=APHOS) 96 U/L 35-104 AST (test code=AST) 15 U/L 1-32 HEMOLYZED ALT (test code=ALT) 10 U/L 1-33 BUN/Creatinine Ratio (test code=BCRATIO) 12.9 Anion Gap (test code=AGAP) 9 mmol/L 7-16 Estimated GFR (test code=GFR) >60 mL/min/1.73m2 eGFR (estimated Glomerular Filtration Rate) is an estimated value,calculated from the patient's serum creatinine using the MDRD equation.It is NOT the patient's actual GFR. The eGFR provides a more clinicallyuseful measure of kidney disease than serum creatinine alone.This calculation takes sex and race into account, if the informationis provided. If the race is not provided, and the patient isAfrican-Lao, multiply by 1.212. If sex is not provided, and thepatient is female, multiply by 0.742. Results for patients <18 years ofage have not been validated by the MDRD study and should be interpretedwith caution.eGFR Result Interpretation:eGFR > or=60 is in the Normal RangeeGFR < 60 may mean kidney diseaseeGFR < 15 may mean kidney failureRanges recommended by the National Kidney Foundat ion,http://nkdep.nih.gov [id number] 18:16:00* Test Item Value Reference Range Comments Lipase (test code=LIP) 14 U/L 13-60 CK [id number] 18:15:00* Test Item Value Reference Range Comments CK (test code=CK) HIDE U/L 26-192 CKMB (test code=CKMB) 1.1 ng/mL 0.0-2.8 CKMB% (test code=CKMBP) HIDE % 0.0-3.4 Troponin [id number] 18:14:00* Test Item Value Reference Range Comments Troponin T (test code=HAFSA) <0.010 ng/mL 0.000-0.090 [id number] 18:14:00* Test Item Value Reference Range Comments NT ProBnp (test code=PBNP) 325 pg/mL 0-124 Lactic Acid [id number] 18:14:00* Test Item Value Reference Range Comments Lactic Acid, Bld (test code=LAC) 1.8 mmol/L 0.5-1.9 Partial Thromboplastin [id number] 18:06:00* Test Item Value Reference Range Comments aPTT (test code=PTT) 34.50 seconds 24.39-37.25 Prothrombin [id number] 18:05:00* Test Item Value Reference Range Comments PT (test code=PT) 11.10 seconds 9.78-13.35 INR (test code=INR) 0.97 Ratio 0.6-1.2 CBC with [id number] 23:36:00* Test Item Value Reference Range Comments WBC (test code=WBC) 7.6 K/cumm 4.4-10.5 RBC (test code=RBC) 4.04 M/cumm 3.75-5.20 Hemoglobin (test code=HGB) 11.3 gm/dL 12.2-14.8 Hematocrit (test code=HCT) 34.9 % 36.5-44.4 MCV (test code=MCV) 86.5 fL 80-100 MCH (test code=MCH) 28.0 pg 27.0-32.5 MCHC (test code=MCHC) 32.4 g/dL 32.0-37.5 RDW (test code=RDW) 13.7 % 11.5-14.5 Platelet Count (test code=PLTCT) 298 K/cumm 140-440 MPV (test code=MPV) 7.6 fL Diff Method (test code=DIFFM) Auto Neutrophil (test code=NEUT) 52.3 % 36-70 Lymphocyte (test code=LYMPH) 31.1 % 12-44 Monocyte (test code=MONO) 10.4 % 0-11 Eosinophil (test code=EOS) 5.4 % 0-7 Basophil (test code=BASO) 0.9 % 0-2 Neutro Abs (test code=ANEUT) 4.0 K/cumm 1.6-7.4 Lymph Abs (test code=ALYMPH) 2.3 K/cumm 0.5-4.6 [place] Abs (test code=AMONO) 0.8 K/cumm 0.0-1.2 Eos Abs (test code=AEOS) 0.41 K/cumm 0.00-0.74 Baso Abs (test code=ABASO) 0.1 K/cumm 0.00-0.21 Comprehensive Metabolic [id number] 22:23:00* Test Item Value Reference Range Comments Sodium (test code=NA) 137 mmol/L 135-145 Potassium (test code=K) 4.4 mmol/L 3.5-5.1 Chloride (test code=CL) 102 mmol/L 98-105 Carbon Dioxide (test code=CO2) 26 mmol/L 22-29 Glucose (test code=GLU) 102 mg/dL 70-115 Blood Urea Nitrogen (test code=BUN) 11 mg/dL 8-23 Creatinine (test code=CREAT) 0.6 mg/dL 0.5-0.9 Calcium (test code=CA) 9.4 mg/dL 8.3-10.5 Prot Total (test code=TP) 6.6 g/dL 6.4-8.3 Albumin (test code=ALB) 4.0 g/dL 3.5-5.2 A/G Ratio (test code=AGRATIO) 1.5 Ratio Globulin (test code=GLOB) 2.6 2.9-3.1 Bili Total (test code=TBIL) <0.1 mg/dL 0.1-0.9 Alk Phos (test code=APHOS) 101 U/L 35-104 AST (test code=AST) 18 U/L 1-32 ALT (test code=ALT) 13 U/L 1-33 BUN/Creatinine Ratio (test code=BCRATIO) 18.3 Anion Gap (test code=AGAP) 9 mmol/L 7-16 Estimated GFR (test code=GFR) >60 mL/min/1.73m2 eGFR (estimated Glomerular Filtration Rate) is an estimated value,calculated from the patient's serum creatinine using the MDRD equation.It is NOT the patient's actual GFR. The eGFR provides a more clinicallyuseful measure of kidney disease than serum creatinine alone.This calculation takes sex and race into account, if the informationis provided. If the race is not provided, and the patient isAfrican-Lao, multiply by 1.212. If sex is not provided, and thepatient is female, multiply by 0.742. Results for patients <18 years ofage have not been validated by the MDRD study and should be interpretedwith caution.eGFR Result Interpretation:eGFR > or=60 is in the Normal RangeeGFR < 60 may mean kidney diseaseeGFR < 15 may mean kidney failureRanges recommended by the National Kidney Foundat ion,http://nkdep.nih.gov [id number] 22:23:00* Test Item Value Reference Range Comments Lipase (test code=LIP) 14 U/L 13-60 [id number] 22:23:00* Test Item Value Reference Range Comments Amylase (test code=RYAN) 59 U/L 28-100
[2018-04-01 10:17] LABS: BASOPHILS # (AUTO) 0.1 (0.0-0.1); BASOPHILS % 0.8 % (0.0-1.0); EOSINOPHILS # (AUTO) 0.2 (0.0-0.4); EOSINOPHILS % 1.8 % (0.0-6.0); HEMATOCRIT 41.9 % (34.2-44.1); HEMOGLOBIN 14.3 g/dL (12.0-16.0); LYMPHOCYTES # (AUTO) 1.9 (1.0-3.2); LYMPHOCYTES % 19.1 % (18.0-39.1); MEAN CORPUSCULAR HEMOGLOBIN 28.3 pg (28-32); MEAN CORPUSCULAR HGB CONC 34.1 g/dL (31-35); MONOCYTES # (AUTO) 0.6 (0.2-0.8); MONOCYTES % 6.6 % (4.4-11.3); NEUTROPHILS # (AUTO) 6.9 (2.1-6.9); NEUTROPHILS % 71.2 % (38.7-80.0); PLATELET COUNT 292 x10e3/uL (140-360); RED BLOOD COUNT 5.05 x10e6/uL (3.6-5.1); RED CELL DISTRIBUTION WIDTH 13.5 % (11.7-14.4)
[2018-04-01] MEDS ORDERED: ONDANSETRON HCL INJ 2MG/ML 2ML 2 MG/ML VIAL IV STA (10:27)
[2018-04-01] MEDS ORDERED: MORPHINE SULFATE 2 MG/ML SYR 1ML IV STA (10:27)
[2018-04-01] MEDS ORDERED: PANTOPRAZOLE 40 MG 10ML VIAL IV STA (10:27)
[2018-04-01] MEDS ORDERED: SODIUM CHLORIDE 0.9% 1000ML 1,000 ML IV STA (10:27)
[2018-04-01 10:31] LABS: BILIRUBIN,URINE NEGATIVE (NEGATIVE); CLARITY,URINE CLEAR (CLEAR); COLOR,URINE YELLOW (YELLOW); KETONES,URINE NEGATIVE (NEGATIVE); LEUKOCYTE ESTERASE ,URINE TRACE (NEGATIVE); NITRITE,URINE NEGATIVE (NEGATIVE); PROTEIN,URINE DIPSTICK NEGATIVE (NEGATIVE); URINE UROBILINOGEN 0.2 mg/dL (0.2 - 1)
[2018-04-01 10:32] LABS: ALANINE AMINOTRANSFERASE 14 IU/L (0-55); ALBUMIN 4.3 g/dL (3.5-5.0); ALBUMIN/GLOBULIN RATIO 1.3 (0.8-2.0); ALKALINE PHOSPHATASE 69 IU/L (40-150); AMYLASE 41 U/L (25-125); ANION GAP 18.4 mmol/L (8-16); BLOOD UREA NITROGEN 13 mg/dL (7-26); BUN/CREATININE RATIO 17 (6-25); CALCIUM 9.5 mg/dL (8.4-10.2); CARBON DIOXIDE 20 mmol/L (22-29); CHLORIDE 94 mmol/L (98-107); CREATINE KINASE 120 IU/L (29-168); CREATININE, SERUM 0.76 mg/dL (0.57-1.11); EST GLOMERULAR FILTRATION RATE > 60 ML/MIN (60-); GLUCOSE 126 mg/dL (74-118); LIPASE 7 U/L (8-78); POTASSIUM 3.4 mmol/L (3.5-5.1); SODIUM 129 mmol/L (136-145)
[2018-04-01 10:38] LABS: BACTERIA,URINE MODERATE /HPF; EPITHELIAL CELLS,URINE FEW /LPF; RBC,URINE 0-5 /HPF (0-5); TRANSITIONAL EPI CELLS,URINE RARE
[2018-04-01] MEDS ORDERED: MORPHINE SULFATE INJ 4 MG/ML INJ 1ML IV ONE (10:45)
[2018-04-01 10:52] LABS: PLATELET ESTIMATE ADEQUATE; PLATELET MORPHOLOGY COMMENT NORMAL
[2018-04-01] MEDS ORDERED: DIATRIZOATE MEGL/DIATRIZOA SOD 30 ML BTL PO ONE (10:56)
[2018-04-01] MEDS: CIPROFLOXACIN 400 MG/D5W 200ML 200 ML IV SCH ×2 (11:07→22:30)
--- NOTE | 2018-04-01 13:39 | Diagnostic Imaging Report ---
EXAMINATION: CT of the abdomen and pelvis with contrast. TECHNIQUE: Spiral CT images of the abdomen and pelvis were performed from the lung bases to the lesser trochanters after the intravenous administration of 100 cc Isovue-370 and the oral administration of Gastrografin. Coronal and sagittal reformatted images were obtained. COMPARISON: None. CLINICAL HISTORY:Left upper quadrant pain. Concern for diverticulitis DISCUSSION: ABDOMEN/PELVIS: LOWER THORAX:Linear and reticular opacities in the dependent portions of the lower lobes compatible with subsegmental atelectasis. No pleural or pericardial effusion. HEPATOBILIARY: 3.1 cm simple cyst in hepatic segment 8. 3.3 cm simple cyst in hepatic segment 5. Both lesions have internal attenuation less than 20 Hounsfield units. No additional focal hepatic lesion. No intrahepatic biliary ductal dilatation. The gallbladder is normal. SPLEEN: Calcified granuloma in the upper and lower poles. No splenomegaly. PANCREAS: No focal masses or ductal dilatation. ADRENALS: No adrenal nodules. KIDNEYS/URETERS: Subcentimeter hypoattenuating lesion in the upper pole of the left kidney too small to further characterize but likely to represent a small cyst. No hydronephrosis, calculi, or gross mass lesion. PELVIC ORGANS/BLADDER: Urinary bladder is well distended and otherwise unremarkable. The uterus is not identified and has presumably been removed. The right ovary is larger than expected in a patient of this age and measures 3.3 x 2.7 cm with average internal attenuation 40-50 Hounsfield units as seen on series 2 image 57. PERITONEUM/RETROPERITONEUM: No ascites. No pneumoperitoneum LYMPH NODES: No pelvic sidewall, retroperitoneal, or mesenteric lymphadenopathy. VESSELS: There is atherosclerotic calcification of the abdominal aorta, major branch vessels, and iliac arterial systems without aneurysmal dilatation. Incidental note of a circumaortic left renal vein. Portal vein, splenic vein, and central superior mesenteric vein are patent. GI TRACT: There are multiple diverticula along the descending and sigmoid colon, without regional inflammation. There is concentric wall thickening and mucosal hyperenhancement predominantly involving the distal transverse colon and descending colon, exemplified at the splenic flexure on series 2 image 13.. The appendix is not identified. Small hiatal hernia. No small bowel dilatation to suggest obstruction. BONES AND SOFT TISSUE: Degenerative disc changes of the lumbar spine. No osseous destructive lesions. Bilateral degenerative joint disease of the hips. No soft tissue abnormalities. IMPRESSION: Findings suggestive of colitis involving the distal transverse and descending colon, likely infectious or inflammatory in nature. Distal descending and sigmoid colon diverticulosis without discrete inflammatory change. Enlarged right ovary for age, raising the possibility of adnexal mass. Nonemergent MRI of the pelvis with and without contrast is suggested for further evaluation. Small hiatal hernia. Atherosclerotic vascular disease. Hepatic cysts as above. Signed by: Dr. Bear Kemp M.D. on 04/01/2018 1:36 PM
[2018-04-01] MEDS ORDERED: ATORVASTATIN CA20 MG PO (14:52)
[2018-04-01] MEDS ORDERED: NORCO 10-325 T1 EACH PO (14:52)
[2018-04-01] MEDS ORDERED: SIMVASTATIN40 MG PO (14:52)
[2018-04-01] MEDS: METRONIDAZOLE 500MG/NS 100ML 100 ML IV SCH ×2 (15:07→21:39)
[2018-04-01] MEDS ORDERED: IOPAMIDOL 370 MG/ML 200 ML INFUS..BTL INJ ONE (15:14)
[2018-04-01] MEDS ORDERED: SODIUM CHLORIDE 0.9% 50ML 50 ML ONE (15:14)
[2018-04-01] MEDS ORDERED: METOPROLOL TART25 MG PO (15:24)
[2018-04-01 16:22] VITALS: BP 157/78
[2018-04-01] MEDS: SODIUM CHLORIDE 0.9% 1000ML 1,000 ML IV SCH (17:30)
[2018-04-01 17:38] VITALS: BP 157/78
[2018-04-01] MEDS: ONDANSETRON HCL INJ 2MG/ML 2ML 2 MG/ML VIAL IV PRN ×2 (17:45→22:39)
[2018-04-01] MEDS: MORPHINE SULFATE INJ 4 MG/ML INJ 1ML IV PRN ×2 (17:45→22:39)
[2018-04-01] MEDS ORDERED: POTASSIUM CHLORIDE 10MEQ EA PO NR ×2 (18:30→20:45)
[2018-04-01 18:37] VITALS: BP 157/78
[2018-04-01] MEDS: METOPROLOL TARTRATE 25 MG TAB PO SCH (18:44)
[2018-04-01 20:00] VITALS: BP 172/74
[2018-04-01 20:18] VITALS: BP 172/74
[2018-04-01] MEDS: ATORVASTATIN 20 MG TAB PO SCH (21:39)
[2018-04-01] MEDS ORDERED: CITRATE OF MAGNESIA 300ML BOTTLE PO ONE (23:00)
[2018-04-01] MEDS: ZOLPIDEM TARTRATE 5 MG TAB PO PRN (23:28)
--- NOTE | 2018-04-01 23:55 | History and Physical ---
CHIEF COMPLAINT: 1. Abdominal pain. 2. Nausea since 2 weeks. HPI: This is 77-year-old female with past medical history of hypertension, hyperlipidemia, was in her usual state of health until daughter says that patient has some nonspecific abdominal complaints since 2 weeks, left side abdominal pain and nausea, no vomiting, no diarrhea. Had some constipation. Patient has increase in the pain today, so patient was brought to the emergency room. No fever. No diarrhea, no hematochezia, no melena, no bleeding per rectum. No chest pain, no shortness of breath, no focal weakness, no seizure, no headache, no dizziness. PAST MEDICAL HISTORY: 1. Hypertension. 2. Hyperlipidemia. PAST SURGICAL HISTORY: History of cataract surgery and hysterectomy. SOCIAL HISTORY: Patient lives with family. HABITS: Denies smoking, denies alcohol use, denies illicit drug use. FAMILY HISTORY: Noncontributory. MEDICATION: List attached. REVIEW OF SYSTEMS: GENERAL: Has fatigue and weakness. HEENT: No diplopia, no blurring of vision. CARDIOPULMONARY: No chest pain, no shortness of breath, no cough. ALIMENTARY SYSTEM: As per HPI. GENITOURINARY SYSTEM: No dysuria, no hematuria. MUSCULOSKELETAL SYSTEM: No joint pain. CENTRAL NERVOUS SYSTEM: No focal weakness. PHYSICAL EXAMINATION: GENERAL: This is 77-year-old female who is alert, oriented x2. VITAL SIGNS: Temperature 98.2, pulse 82, respiratory rate 18, blood pressure 134/84. HEENT: Head atraumatic, normocephalic. Pupils are bilaterally equal and reactive to light. Extraocular muscles intact. NECK: Supple. No JVD, no carotid bruit. LUNGS: Clear to auscultation and percussion bilaterally. No added sounds. HEART: S1 and S2. Regular rate and rhythm. No S3, no S4. No murmur. ABDOMEN: Mild left side tenderness. No guarding, no rigidity. Bowel sounds plus. EXTREMITIES: No pedal edema. Peripheral pulses +1. BANANA LOADER: Grossly nonfocal. LABORATORY DATA: White count normal. Potassium 3.4. CT of abdomen shows colitis. ASSESSMENT: 1. Colitis, possible infectious versus ischemic. 2. Hypokalemia. 3. Hypertension. 4. Hyperlipidemia. PLAN: Admit to med-surg floor. GI consult, Dr. Trey Ng. IV fluids with normal saline 125 mL per hour. Potassium 40 mEq p.o. x1. Liquid diet. IV Protonix 40 daily. Labs tomorrow. Continue home medicine. Case discussed with patient daughter and family. Told condition and prognosis. Job#: [id number]
[2018-04-02] VITALS (7 sets, daily range): BP systolic 128–185; BP diastolic 58–77
[2018-04-02] MEDS ORDERED: CITRATE OF MAGNESIA 300ML BOTTLE PO ONE ×3 (05:00→15:00)
[2018-04-02 05:08] LABS: BASOPHILS # (AUTO) 0.1 (0.0-0.1); BASOPHILS % 0.7 % (0.0-1.0); EOSINOPHILS # (AUTO) 0.3 (0.0-0.4); EOSINOPHILS % 3.6 % (0.0-6.0); HEMATOCRIT 36.8 % (34.2-44.1); HEMOGLOBIN 12.4 g/dL (12.0-16.0); LYMPHOCYTES # (AUTO) 3.1 (1.0-3.2); LYMPHOCYTES % 34.4 % (18.0-39.1); MEAN CORPUSCULAR HEMOGLOBIN 28.3 pg (28-32); MEAN CORPUSCULAR HGB CONC 33.7 g/dL (31-35); MONOCYTES # (AUTO) 0.9 (0.2-0.8); MONOCYTES % 10.3 % (4.4-11.3); NEUTROPHILS # (AUTO) 4.6 (2.1-6.9); NEUTROPHILS % 50.7 % (38.7-80.0); PLATELET COUNT 253 x10e3/uL (140-360); RED BLOOD COUNT 4.38 x10e6/uL (3.6-5.1); RED CELL DISTRIBUTION WIDTH 13.6 % (11.7-14.4)
[2018-04-02] MEDS: SODIUM CHLORIDE 0.9% 1000ML 1,000 ML IV SCH ×3 (05:16→19:11)
[2018-04-02 05:25] LABS: ANION GAP 13.3 mmol/L (8-16); BLOOD UREA NITROGEN 7 mg/dL (7-26); BUN/CREATININE RATIO 11 (6-25); CALCIUM 8.3 mg/dL (8.4-10.2); CARBON DIOXIDE 24 mmol/L (22-29); CHLORIDE 105 mmol/L (98-107); CREATININE, SERUM 0.66 mg/dL (0.57-1.11); EST GLOMERULAR FILTRATION RATE > 60 ML/MIN (60-); GLUCOSE 93 mg/dL (74-118); POTASSIUM 3.3 mmol/L (3.5-5.1); SODIUM 139 mmol/L (136-145)
[2018-04-02] MEDS ORDERED: BISACODYL 5 MG TAB EC PO ONE ×3 (06:00→07:00)
[2018-04-02] MEDS: METRONIDAZOLE 500MG/NS 100ML 100 ML IV SCH ×3 (06:12→21:17)
[2018-04-02] MEDS: ONDANSETRON HCL INJ 2MG/ML 2ML 2 MG/ML VIAL IV PRN ×3 (08:04→23:50)
[2018-04-02] MEDS ORDERED: SODIUM CHLORIDE 0.9% 50ML 50 ML ONE (08:54)
[2018-04-02] MEDS ORDERED: POTASSIUM CHLORIDE 20MEQ/100ML 200 ML IV ONE (09:00)
[2018-04-02] MEDS ORDERED: METOPROLOL TARTRATE 25 MG TAB PO SCH (09:00)
[2018-04-02] MEDS: MORPHINE SULFATE INJ 4 MG/ML INJ 1ML IV PRN ×4 (09:10→23:50)
[2018-04-02] MEDS: METOPROLOL TARTRATE 25 MG TAB PO SCH ×2 (09:10→15:28)
[2018-04-02] MEDS: PANTOPRAZOLE 40 MG 10ML VIAL IV SCH (09:10)
--- NOTE | 2018-04-02 09:49 | Consultation ---
DATE OF CONSULTATION: April 02, 2018 CARDIOLOGY CONSULTATION REASON FOR CONSULTATION: Atherosclerotic heart disease. HPI: This is a 77-year-old female that presented with severe abdominal pain. According to the patient and at the bedside, for 2 weeks she had severe abdominal pain that got worse yesterday that she presented to the emergency room for evaluation. She stated that the pain got was on the left side accompanied with nausea and vomiting. She had a CT of the abdomen done in the emergency room that showed findings suggestive of colitis involving the distal transverse and descending colon, likely infectious or inflammatory in nature. It also showed small hiatal hernia, hepatic cyst. She denied any chest pain, any palpitation, any dizziness, any shortness of breath, any headache, or diaphoresis. Troponin times 1 was negative. PAST MEDICAL HISTORY: Hypertension, hyperlipidemia, varicose veins, remote DVT in the past, which she does not remember. SURGICAL HISTORY: Varicose vein surgery, cataract surgery and hysterectomy. FAMILY HISTORY: Positive for hypertension. SOCIAL HISTORY: No smoking. No drinking. She lives at home with the . MEDICATIONS: She was on atorvastatin, hydrocodone and metoprolol. ALLERGIES: SHE IS NOT ALLERGIC TO ANY MEDICATIONS. REVIEW OF SYSTEMS: Negative except those mentioned above. She is positive with severe abdominal pain accompanied with nausea and vomiting. PHYSICAL EXAMINATION VITALS: Temperature 98, heart rate 86, blood pressure 145/69, respirations 18, oxygen saturation 97% on 2 L nasal cannula. GENERAL: She is awake, alert and oriented times 3. Complaining of severe abdominal pain. HEENT: Mucous membrane moist. NECK: Supple. LUNGS: Bilateral clear to auscultation. CARDIOVASCULAR: S1 and S2 present. ABDOMEN: Soft, tender and complaining of pain with touch. NEUROLOGICAL: Intact. EXTREMITIES: With no edema. LABS: Sodium 139, potassium 3.3, chloride 105, CO2 24, BUN 7, creatinine 0.66, glucose 93. White blood cells 8.97, hemoglobin 12.4, hematocrit 36.8, and platelet 253,000. IMPRESSION 1. Severe abdominal pain. 2. Possible colitis. 3. Hypertension. 4. Hypokalemia. 5. Hyperlipidemia. ASSESSMENT AND PLAN 1. Will go ahead and get an echocardiogram to assess the LV and the valve function. 2. Will check her TSH. 3. Check serial cardiac enzymes and EKG. 4. She is planning for EGD and colonoscopy today. 5. Potassium is low and has been replaced. 6. Will continue beta vincenzo and statin. Further cardiac workup pending clinical course. Thank you for this consultation. DICTATED BY DONNA VALDEZ NP Job#: [id number] AARON
[2018-04-02] MEDS: HYDRALAZINE HCL 20 MG/ML VIAL IV PRN (12:54)
[2018-04-02] MEDS: CIPROFLOXACIN 400 MG/D5W 200ML 200 ML IV SCH ×2 (15:00→22:30)
[2018-04-02] MEDS: ATORVASTATIN 20 MG TAB PO SCH (20:35)
[2018-04-02] MEDS: BALSAM PERU/CASTOR OIL 60 GM OINT...G. TP SCH (20:35)
[2018-04-03] VITALS (8 sets, daily range): BP systolic 138–171; BP diastolic 61–79
[2018-04-03] MEDS: ZOLPIDEM TARTRATE 5 MG TAB PO PRN ×2 (01:29→21:25)
[2018-04-03] MEDS: HYDRALAZINE HCL 20 MG/ML VIAL IV PRN (01:59)
[2018-04-03] MEDS: SODIUM CHLORIDE 0.9% 1000ML 1,000 ML IV SCH ×3 (03:14→23:01)
[2018-04-03 05:05] LABS: BASOPHILS # (AUTO) 0.1 (0.0-0.1); BASOPHILS % 0.8 % (0.0-1.0); EOSINOPHILS # (AUTO) 0.1 (0.0-0.4); EOSINOPHILS % 0.9 % (0.0-6.0); HEMATOCRIT 39.7 % (34.2-44.1); HEMOGLOBIN 12.9 g/dL (12.0-16.0); LYMPHOCYTES # (AUTO) 1.6 (1.0-3.2); LYMPHOCYTES % 17.1 % (18.0-39.1); MEAN CORPUSCULAR HEMOGLOBIN 27.6 pg (28-32); MEAN CORPUSCULAR HGB CONC 32.5 g/dL (31-35); MONOCYTES # (AUTO) 0.8 (0.2-0.8); MONOCYTES % 8.4 % (4.4-11.3); NEUTROPHILS # (AUTO) 6.6 (2.1-6.9); NEUTROPHILS % 72.1 % (38.7-80.0); PLATELET COUNT 264 x10e3/uL (140-360); RED BLOOD COUNT 4.67 x10e6/uL (3.6-5.1); RED CELL DISTRIBUTION WIDTH 14.1 % (11.7-14.4)
[2018-04-03 05:35] LABS: ALANINE AMINOTRANSFERASE 13 IU/L (0-55); ALBUMIN 3.5 g/dL (3.5-5.0); ALBUMIN/GLOBULIN RATIO 1.3 (0.8-2.0); ALKALINE PHOSPHATASE 58 IU/L (40-150); ANION GAP 13.9 mmol/L (8-16); BLOOD UREA NITROGEN 5 mg/dL (7-26); BUN/CREATININE RATIO 8 (6-25); CALCIUM 8.2 mg/dL (8.4-10.2); CARBON DIOXIDE 15 mmol/L (22-29); CHLORIDE 109 mmol/L (98-107); CREATININE, SERUM 0.63 mg/dL (0.57-1.11); EST GLOMERULAR FILTRATION RATE > 60 ML/MIN (60-); GLUCOSE 116 mg/dL (74-118); SODIUM 135 mmol/L (136-145)
[2018-04-03 05:37] LABS: POTASSIUM 2.9 mmol/L (3.5-5.1)
[2018-04-03] MEDS: METRONIDAZOLE 500MG/NS 100ML 100 ML IV SCH ×3 (06:04→21:25)
[2018-04-03] MEDS ORDERED: KCL 20MEQ/.9 SOD CHL 1,000 ML IV ONE (07:00)
[2018-04-03] MEDS: LISINOPRIL 10 MG TAB PO SCH (08:26)
[2018-04-03] MEDS: PANTOPRAZOLE 40 MG 10ML VIAL IV SCH ×2 (08:26→18:11)
[2018-04-03] MEDS: METOPROLOL TARTRATE 25 MG TAB PO SCH ×2 (08:26→18:11)
[2018-04-03] MEDS: BALSAM PERU/CASTOR OIL 60 GM OINT...G. TP SCH ×2 (08:27→23:00)
[2018-04-03] MEDS: MORPHINE SULFATE INJ 4 MG/ML INJ 1ML IV PRN (08:55)
[2018-04-03] MEDS: ONDANSETRON HCL INJ 2MG/ML 2ML 2 MG/ML VIAL IV PRN (08:55)
[2018-04-03] MEDS ORDERED: POTASSIUM CHLORIDE 20MEQ/100ML 200 ML IV ONE (10:00)
[2018-04-03] MEDS: CIPROFLOXACIN 400 MG/D5W 200ML 200 ML IV SCH ×2 (10:30→23:00)
[2018-04-03] MEDS ORDERED: ACETAMINOPHEN 1000 MG/100 ML IV ONE (15:00)
[2018-04-03] MEDS ORDERED: MIDAZOLAM HCL 2 MG/2 ML VIAL ONE (15:17)
[2018-04-03] MEDS ORDERED: SODIUM CHLORIDE 0.9% 500ML 500 ML ONE (15:50)
--- NOTE | 2018-04-03 17:50 | Operative Report ---
DATE OF PROCEDURE: April 03, 2018 REFERRING PHYSICIAN: Dr. Kings Bowling PROCEDURES PERFORMED 1. Esophagogastroduodenoscopy with biopsies. 2. Colonoscopy with biopsies. INDICATIONS FOR EGD: Upper abdominal pain, nausea. INDICATIONS FOR COLONOSCOPY: Left-sided abdominal pain, abnormal CT scan of abdomen. MEDICATION: Patient was done under MAC, please see anesthesiologist's note. PROCEDURE: With patient in left lateral decubitus position, a flexible fiberoptic Olympus gastroscope was introduced into the esophagus under direct visualization without any difficulty. There was some patchy erythema noted in distal esophagus. There was a focal thickened area noted at the GE junction that was biopsied. The scope was then advanced with ease into the stomach traversing a small hiatal hernia. Mucosa overlying the antrum and the body revealed some patchy erythema and low-grade to moderate edema and biopsies were obtained and sent to stain for H. pylori. The pylorus was of normal contour and shape, was intubated with ease and the scope was advanced all the way to the 2nd portion of the duodenum. The scope was then withdrawn slowly. Mucosa overlying the proximal 2nd portion and the duodenal bulb appeared to be within normal limits. The scope was then withdrawn back into the stomach and retroflexed and previously described hiatal hernia was also noted in the retroflexed position. The scope was then straightened out and was subsequently withdrawn. Patient tolerated the procedure well. IMPRESSION 1. Distal esophagitis, mild. 2. Focal thickened area at gastroesophageal junction, biopsied. 3. Hiatal hernia. 4. Gastritis, biopsied. Biopsies sent to stain for Helicobacter pylori. PLAN: Follow up histology. Continue Protonix 40 mg 1 p.o. q.a.m. a.c. Patient was then turned around. After adequate lubrication of the anal canal, a flexible fiberoptic Olympus colonoscope was inserted into the rectum with ease and advanced all the way to the cecum. Mucosa overlying the cecum appeared to be within normal limits. The ileocecal valve was intubated and the scope was advanced into the terminal ileum. Biopsies were obtained. The scope was then withdrawn back into the colon. It was then withdrawn slowly and the mucosa overlying the ascending and transverse grossly other than for diverticular disease appeared to be within normal limits. A distal transverse, descending and sigmoid other than for diverticulosis revealed some patchy mild inflammatory changes and multiple random biopsies were obtained. The scope was retroflexed into the distal rectum and small internal hemorrhoids were noted, none of which was actively bleeding. The scope was then straightened out and was subsequently withdrawn. Patient tolerated the procedure well. IMPRESSION 1. Diverticulosis. 2. Mild left-sided colitis. 3. Internal hemorrhoids, none actively bleeding. PLAN: Follow up histology. Initiate Bentyl 10 mg 1 p.o. t.i.d.. Start GI soft diet. Job#: [id number] BAHMAN cc:NAREN BOWLING M.D.
[2018-04-03] MEDS ORDERED: GLUCAGON FOR INJ 1 MG VIAL ONE (18:16)
[2018-04-03] MEDS ORDERED: LIDOCAINE HCL 2% LOCAL INJ 5 ML SDV VIAL INJ ONE (18:16)
[2018-04-03] MEDS ORDERED: PROPOFOL IV EMULSION 10 MG/ML 50 ML VIAL ONE (18:16)
[2018-04-03] MEDS: DICYCLOMINE HCL 10 MG CAP PO SCH (21:25)
[2018-04-03] MEDS: ATORVASTATIN 20 MG TAB PO SCH (21:25)
[2018-04-04] VITALS (8 sets, daily range): BP systolic 125–152; BP diastolic 61–73
[2018-04-04 05:01] LABS: BASOPHILS % 0.3 % (0.0-1.0); HEMATOCRIT 33.1 % (34.2-44.1); HEMOGLOBIN 11.2 g/dL (12.0-16.0); LYMPHOCYTES # (AUTO) 1.3 (1.0-3.2); LYMPHOCYTES % 14.5 % (18.0-39.1); MEAN CORPUSCULAR HEMOGLOBIN 28.1 pg (28-32); MEAN CORPUSCULAR HGB CONC 33.8 g/dL (31-35); MEAN CORPUSCULAR VOLUME 83.2 fL (81-99); MONOCYTES # (AUTO) 0.7 (0.2-0.8); MONOCYTES % 7.6 % (4.4-11.3); NEUTROPHILS # (AUTO) 6.9 (2.1-6.9); NEUTROPHILS % 76.9 % (38.7-80.0); PLATELET COUNT 275 x10e3/uL (140-360); RED BLOOD COUNT 3.98 x10e6/uL (3.6-5.1); RED CELL DISTRIBUTION WIDTH 14.3 % (11.7-14.4)
[2018-04-04 05:31] LABS: ANION GAP 10.3 mmol/L (8-16); BLOOD UREA NITROGEN 9 mg/dL (7-26); BUN/CREATININE RATIO 14 (6-25); CARBON DIOXIDE 18 mmol/L (22-29); CHLORIDE 112 mmol/L (98-107); CREATININE, SERUM 0.63 mg/dL (0.57-1.11); EST GLOMERULAR FILTRATION RATE > 60 ML/MIN (60-); GLUCOSE 106 mg/dL (74-118); MAGNESIUM 2.2 MG/DL (1.3-2.1); POTASSIUM 3.3 mmol/L (3.5-5.1); SODIUM 137 mmol/L (136-145)
[2018-04-04] MEDS: PANTOPRAZOLE 40 MG 10ML VIAL IV SCH ×2 (05:55→18:33)
[2018-04-04] MEDS: METRONIDAZOLE 500MG/NS 100ML 100 ML IV SCH ×3 (05:55→21:23)
[2018-04-04] MEDS: ONDANSETRON HCL INJ 2MG/ML 2ML 2 MG/ML VIAL IV PRN (05:57)
[2018-04-04] MEDS: MORPHINE SULFATE INJ 4 MG/ML INJ 1ML IV PRN (07:43)
[2018-04-04] MEDS: DICYCLOMINE HCL 10 MG CAP PO SCH ×3 (08:40→21:23)
[2018-04-04] MEDS: METOPROLOL TARTRATE 25 MG TAB PO SCH ×2 (08:41→18:33)
[2018-04-04] MEDS: BALSAM PERU/CASTOR OIL 60 GM OINT...G. TP SCH ×2 (08:41→21:23)
[2018-04-04] MEDS: LISINOPRIL 10 MG TAB PO SCH (08:41)
[2018-04-04] MEDS: SODIUM CHLORIDE 0.9% 1000ML 1,000 ML IV SCH ×2 (10:20→21:23)
[2018-04-04] MEDS: CIPROFLOXACIN 400 MG/D5W 200ML 200 ML IV SCH ×2 (10:35→22:36)
[2018-04-04] MEDS ORDERED: POTASSIUM CHLORIDE 20 MEQ TAB CR PO ONE (11:00)
[2018-04-04] MEDS: HYDROCODONE/APAP 10MG-325MG TAB PO PRN (17:40)
[2018-04-04] MEDS: ATORVASTATIN 20 MG TAB PO SCH (21:23)
[2018-04-05] VITALS (8 sets, daily range): BP systolic 130–187; BP diastolic 62–82
[2018-04-05] MEDS: PANTOPRAZOLE 40 MG 10ML VIAL IV SCH ×2 (05:31→17:33)
[2018-04-05] MEDS: HYDRALAZINE HCL 20 MG/ML VIAL IV PRN (05:31)
[2018-04-05] MEDS: DICYCLOMINE HCL 20 MG TAB PO SCH ×3 (05:31→21:24)
[2018-04-05] MEDS: METRONIDAZOLE 500MG/NS 100ML 100 ML IV SCH ×3 (05:31→21:25)
[2018-04-05] MEDS: HYDROCODONE/APAP 10MG-325MG TAB PO PRN ×2 (05:31→17:35)
[2018-04-05 05:33] LABS: BASOPHILS # (AUTO) 0.1 (0.0-0.1); BASOPHILS % 0.9 % (0.0-1.0); EOSINOPHILS # (AUTO) 0.3 (0.0-0.4); EOSINOPHILS % 3.4 % (0.0-6.0); HEMATOCRIT 34.9 % (34.2-44.1); HEMOGLOBIN 11.4 g/dL (12.0-16.0); LYMPHOCYTES # (AUTO) 2.3 (1.0-3.2); LYMPHOCYTES % 27.4 % (18.0-39.1); MEAN CORPUSCULAR HEMOGLOBIN 29.6 pg (28-32); MEAN CORPUSCULAR HGB CONC 32.7 g/dL (31-35); MONOCYTES # (AUTO) 0.7 (0.2-0.8); MONOCYTES % 8.3 % (4.4-11.3); NEUTROPHILS % 59.4 % (38.7-80.0); PLATELET COUNT 185 x10e3/uL (140-360); RED BLOOD COUNT 3.85 x10e6/uL (3.6-5.1); RED CELL DISTRIBUTION WIDTH 14.9 % (11.7-14.4)
[2018-04-05 05:34] LABS: MEAN CORPUSCULAR VOLUME 90.6 fL (81-99)
[2018-04-05 06:09] LABS: BLOOD UREA NITROGEN 7 mg/dL (7-26); BUN/CREATININE RATIO 11 (6-25); CALCIUM 8.1 mg/dL (8.4-10.2); CARBON DIOXIDE 20 mmol/L (22-29); CHLORIDE 109 mmol/L (98-107); CREATININE, SERUM 0.64 mg/dL (0.57-1.11); EST GLOMERULAR FILTRATION RATE > 60 ML/MIN (60-); GLUCOSE 98 mg/dL (74-118); SODIUM 138 mmol/L (136-145)
[2018-04-05] MEDS: METOPROLOL TARTRATE 25 MG TAB PO SCH ×2 (09:00→17:33)
[2018-04-05] MEDS ORDERED: POTASSIUM CHLORIDE 10MEQ EA PO NR (09:00)
[2018-04-05] MEDS: LISINOPRIL 10 MG TAB PO SCH (09:00)
[2018-04-05] MEDS ORDERED: POTASSIUM CHLORIDE 20MEQ/100ML 200 ML IV ONE (09:00)
[2018-04-05] MEDS: ACETAMINOPHEN 325 MG TAB PO PRN (10:30)
[2018-04-05] MEDS: CIPROFLOXACIN 400 MG/D5W 200ML 200 ML IV SCH ×2 (11:30→23:11)
[2018-04-05] MEDS ORDERED: SODIUM CHLORIDE 0.9% 1000ML 1,000 ML ONE (14:09)
[2018-04-05] MEDS: BALSAM PERU/CASTOR OIL 60 GM OINT...G. TP SCH (21:00)
[2018-04-05] MEDS: ATORVASTATIN 20 MG TAB PO SCH (21:24)
[2018-04-05] MEDS: ZOLPIDEM TARTRATE 5 MG TAB PO PRN (21:25)
[2018-04-06] VITALS (7 sets, daily range): BP systolic 122–185; BP diastolic 63–83
[2018-04-06] MEDS: HYDROCODONE/APAP 10MG-325MG TAB PO PRN (04:00)
[2018-04-06] MEDS: PANTOPRAZOLE 40 MG 10ML VIAL IV SCH ×2 (05:19→17:40)
[2018-04-06] MEDS: HYDRALAZINE HCL 20 MG/ML VIAL IV PRN ×4 (05:20→21:00)
[2018-04-06] MEDS: METRONIDAZOLE 500MG/NS 100ML 100 ML IV SCH ×3 (05:20→22:00)
[2018-04-06 06:13] LABS: ALANINE AMINOTRANSFERASE 18 IU/L (0-55); ALBUMIN 3.2 g/dL (3.5-5.0); ALBUMIN/GLOBULIN RATIO 1.5 (0.8-2.0); ALKALINE PHOSPHATASE 50 IU/L (40-150); BLOOD UREA NITROGEN < 5 mg/dL (7-26); CALCIUM 8.2 mg/dL (8.4-10.2); CARBON DIOXIDE 24 mmol/L (22-29); CHLORIDE 103 mmol/L (98-107); CREATININE, SERUM 0.61 mg/dL (0.57-1.11); EST GLOMERULAR FILTRATION RATE > 60 ML/MIN (60-); GLUCOSE 101 mg/dL (74-118); SODIUM 136 mmol/L (136-145)
[2018-04-06 06:20] LABS: BUN/CREATININE RATIO 8 (6-25)
[2018-04-06] MEDS: DICYCLOMINE HCL 20 MG TAB PO SCH ×3 (06:28→22:00)
[2018-04-06] MEDS: LISINOPRIL 20 MG TAB PO SCH (08:32)
[2018-04-06] MEDS: METOPROLOL TARTRATE 25 MG TAB PO SCH (08:32)
[2018-04-06] MEDS: ACETAMINOPHEN 325 MG TAB PO PRN ×2 (08:33→22:07)
[2018-04-06] MEDS ORDERED: POTASSIUM CHLORIDE 10MEQ EA PO NR (08:45)
[2018-04-06] MEDS: BALSAM PERU/CASTOR OIL 60 GM OINT...G. TP SCH ×2 (09:00→21:00)
[2018-04-06] MEDS ORDERED: LISINOPRIL 10 MG TAB PO SCH (09:00)
[2018-04-06] MEDS ORDERED: DONNATAL/LIDOCAINE/MAALOX 30 ML SUSP PO ONE (09:00)
[2018-04-06] MEDS ORDERED: POTASSIUM CHLORIDE 20MEQ/100ML 300 ML IV ONE (09:15)
[2018-04-06] MEDS: CIPROFLOXACIN 400 MG/D5W 200ML 200 ML IV SCH ×2 (10:30→22:30)
[2018-04-06] MEDS ORDERED: KETOROLAC TROMETHAMINE 30 MG/ML VIAL IV NR (17:00)
[2018-04-06] MEDS: AMILORIDE HCL 5 MG TAB PO SCH (17:40)
[2018-04-06] MEDS ORDERED: SODIUM CHLORIDE 0.9% 250ML 250 ML ONE ×2 (20:13→20:43)
[2018-04-06] MEDS ORDERED: SODIUM CHLORIDE 0.9% 50ML 50 ML ONE (20:13)
[2018-04-06] MEDS: ATORVASTATIN 20 MG TAB PO SCH (21:00)
[2018-04-06] MEDS: ZOLPIDEM TARTRATE 5 MG TAB PO PRN (22:07)
[2018-04-06] MEDS ORDERED: ACETAMINOPHEN/ASPIRIN/CAFFEINE 1 EA TAB PO ONE (23:00)
[2018-04-06] MEDS ORDERED: SIMETHICONE 80 MG CHEW PO ONE (23:00)
[2018-04-07] VITALS (8 sets, daily range): BP systolic 159–185; BP diastolic 70–89
--- NOTE | 2018-04-07 01:17 | Consultation ---
DATE OF CONSULTATION: 04/06/2018 HISTORY OF PRESENT ILLNESS: This is a 77-year-old female whose active issue right now is her migraine. She has a history of migraine and she states her headache has not gone away. She has seen a neurologist, apparently treatment has been started, but very little relief according to patient, she was also hypertensive. Her medications were adjusted. Real concern for refractory hypokalemia as well as hypertension. The patient lying supine, has a longstanding history of hypertension, but denies any history of diabetes, denies any history of malignancy. She has a strong family history of hypertension plus hyperlipidemia. She is suspected to have possible colitis. Initially, she had severe abdominal pain. Workup here included abdominal CT pelvis, this was done with contrast, please see official report. Gallbladder is normal. Pancreas, no focal mass. Kidneys show subcentimeter hypoattenuated lesion in the upper pole of the left kidney, too small to characterize. Urinary bladder was distended, but unremarkable. Findings were suggestive of colitis involving the distal, transverse and descending colon. She is currently on metronidazole, being treated empirically for C. difficile. Urine culture was positive, please see official report. Labs show potassium 2.7 with a creatinine of 0.61. Sodium 136, bicarbonate 24. As far as the adrenal glands on CT, there were no adrenal nodules or any mention of the adrenal hyperplasia. CURRENT MEDICATIONS: Include she is on her 2nd potassium rider. She takes metoprolol 12.5 mg daily, Protonix 40 mg IV push q. 12, Zofran p.r.n., lisinopril 20 mg daily, she is on ciprofloxacin, metronidazole and atorvastatin 20 mg daily. She is on Bentyl 20 mg p.o. q. 8. SOCIAL HISTORY: She does not smoke or drink. FAMILY HISTORY: As above. PHYSICAL EXAMINATION: GENERAL: Awake, alert, lying supine, in no apparent distress. VITAL SIGNS: Blood pressure 164/74, pulse rate 75, afebrile. HEAD AND NECK: Cornea clear. Mucosa moist. Neck veins flat. LUNGS: Relatively clear. HEART: S1 and S2, audible. ABDOMEN: Soft and nontender. EXTREMITIES: Lower extremity, no edema. IMPRESSION: 1. Hypertension. 2. Hypok[address]emia. 3. CT negative for any adrenal nodules. 4. Severe migraine. PLAN: Plan on obtaining magnesium and phosphorous levels. We will replace potassium, start amiloride 5 mg daily, first dose now, we will give her one dose of Toradol IV. Please see further orders. Discussed with RN. Discussed with family member. MD TAE Montoya/MELISAL /[id number]
[2018-04-07 05:05] LABS: BASOPHILS # (AUTO) 0.1 (0.0-0.1); BASOPHILS % 0.5 % (0.0-1.0); EOSINOPHILS # (AUTO) 0.2 (0.0-0.4); EOSINOPHILS % 2.1 % (0.0-6.0); HEMATOCRIT 36.6 % (34.2-44.1); HEMOGLOBIN 12.3 g/dL (12.0-16.0); LYMPHOCYTES % 21.8 % (18.0-39.1); MEAN CORPUSCULAR HEMOGLOBIN 28.1 pg (28-32); MEAN CORPUSCULAR HGB CONC 33.6 g/dL (31-35); MONOCYTES % 11.4 % (4.4-11.3); NEUTROPHILS # (AUTO) 5.8 (2.1-6.9); NEUTROPHILS % 63.5 % (38.7-80.0); PLATELET COUNT 294 x10e3/uL (140-360); RED BLOOD COUNT 4.38 x10e6/uL (3.6-5.1); RED CELL DISTRIBUTION WIDTH 14.6 % (11.7-14.4)
[2018-04-07 05:10] LABS: MEAN CORPUSCULAR VOLUME 83.6 fL (81-99)
[2018-04-07] MEDS: PANTOPRAZOLE 40 MG 10ML VIAL IV SCH ×2 (05:15→17:24)
[2018-04-07] MEDS: ONDANSETRON HCL INJ 2MG/ML 2ML 2 MG/ML VIAL IV PRN (05:29)
[2018-04-07 05:38] LABS: ALANINE AMINOTRANSFERASE 21 IU/L (0-55); ALBUMIN 3.3 g/dL (3.5-5.0); ALBUMIN/GLOBULIN RATIO 1.6 (0.8-2.0); ALKALINE PHOSPHATASE 57 IU/L (40-150); ANION GAP 11.7 mmol/L (8-16); BLOOD UREA NITROGEN 6 mg/dL (7-26); BUN/CREATININE RATIO 10 (6-25); CALCIUM 8.5 mg/dL (8.4-10.2); CARBON DIOXIDE 22 mmol/L (22-29); CHLORIDE 102 mmol/L (98-107); CREATININE, SERUM 0.63 mg/dL (0.57-1.11); EST GLOMERULAR FILTRATION RATE > 60 ML/MIN (60-); GLUCOSE 111 mg/dL (74-118); PHOSPHORUS 2.9 MG/DL (2.3-4.7); POTASSIUM 3.7 mmol/L (3.5-5.1); SODIUM 132 mmol/L (136-145)
[2018-04-07] MEDS: DICYCLOMINE HCL 20 MG TAB PO SCH ×3 (06:29→22:00)
[2018-04-07] MEDS: METRONIDAZOLE 500MG/NS 100ML 100 ML IV SCH ×3 (06:29→22:00)
--- NOTE | 2018-04-07 09:09 | Diagnostic Imaging Report ---
History:Headaches, migraine Comparison studies:None Technique: Axial images were obtained from the skull base to the vertex. Coronal and sagittal images reconstructed from the axial data. Intravenous contrast: None Dose modulation, iterative reconstruction, and/or weight based adjustment of the mA/kV was utilized to reduce the radiation dose to as low as reasonably achievable. Findings: Scalp/skull: No abnormalities. Extra-axial spaces: No masses. No fluid collections. Brain sulci: Mildly prominent. Ventricles: Mild compensatory dilatation. No hydrocephalus. Parenchyma: Few hypodensities in the supratentorial white matter are small vessel ischemic changes. No masses, hemorrhage, acute or chronic cortical vascular insults. Sellar/suprasellar region: No abnormalities. Craniocervical junction: Patent foramen magnum. No Chiari one malformation. Incidental findings: Atherosclerotic calcifications in the carotid siphons . Impression: No acute abnormalities. Chronic findings: 1. Mild generalized volume loss. 2. Mild supratentorial white matter small vessel ischemic changes. Signed by: DR Evan Montgomery M.D. on 04/07/2018 9:06 AM
[2018-04-07] MEDS: LISINOPRIL 20 MG TAB PO SCH (09:25)
[2018-04-07] MEDS: METOPROLOL TARTRATE 25 MG TAB PO SCH (09:25)
[2018-04-07] MEDS: BALSAM PERU/CASTOR OIL 60 GM OINT...G. TP SCH ×2 (09:25→21:00)
[2018-04-07] MEDS: HYDROCODONE/APAP 10MG-325MG TAB PO PRN (09:40)
[2018-04-07] MEDS: CIPROFLOXACIN 400 MG/D5W 200ML 200 ML IV SCH ×2 (09:49→22:30)
[2018-04-07] MEDS ORDERED: METOPROLOL TARTRATE 25 MG TAB PO NR (10:00)
[2018-04-07] MEDS: ACETAMINOPHEN 325 MG TAB PO PRN (15:24)
[2018-04-07] MEDS ORDERED: ACETAMINOPHEN 325 MG TAB PO PRN (15:45)
[2018-04-07] MEDS ORDERED: PROMETHAZINE 25MG/ NS 50ML (IV) IV SCH (17:00)
[2018-04-07] MEDS ORDERED: METOPROLOL TARTRATE 25 MG TAB PO SCH (17:00)
[2018-04-07] MEDS ORDERED: VALPROATE SOD INJ 500 MG in SODIUM CHLORIDE 0.9% 100 ML 100 ML IV SCH (17:00)
[2018-04-07] MEDS ORDERED: METHYLPREDNISOLONE SOD SUCC 125 MG/2ML VIAL IV SCH (17:00)
[2018-04-07] MEDS: METOPROLOL TARTRATE 50 MG TAB PO SCH (17:24)
[2018-04-07] MEDS ORDERED: PROMETHAZINE 25MG/SOD CHL 0.9% 50 ML IV ONE ×2 (17:45→23:30)
[2018-04-07] MEDS ORDERED: PROMETHAZINE 25MG/SOD CHL 0.9% 50 ML IV SCH (18:00)
[2018-04-07] MEDS ORDERED: VALPROATE SOD INJ 500 MG in SODIUM CHLORIDE 0.9% 100 ML 100 ML INJ ONE (18:30)
[2018-04-07] MEDS: ATORVASTATIN 20 MG TAB PO SCH (21:00)
[2018-04-07] MEDS: HYDRALAZINE HCL 20 MG/ML VIAL IV PRN (21:11)
[2018-04-07] MEDS: ZOLPIDEM TARTRATE 5 MG TAB PO PRN (22:39)
[2018-04-08] MEDS ORDERED: VALPROATE SOD INJ 500 MG in SODIUM CHLORIDE 0.9% 100 ML 100 ML INJ ONE (00:15)
[2018-04-08 01:05] VITALS: BP 147/65
[2018-04-08 03:42] VITALS: BP 147/65
--- NOTE | 2018-04-08 04:17 | Consultation ---
DATE OF CONSULTATION: 04/07/2018 NEUROLOGY CONSULT HISTORY OF PRESENT ILLNESS: Ms. Michael is a 77-year-old woman with past medical history significant for hypertension, hyperlipidemia, and migraines, admitted to [facility] on April 01, 2018, with colitis, hypokalemia, and hypertension. During her hospitalization, the patient has endorsed headaches, for which the Neurology Service is consulted. Ms. Michael describes her headaches as follows: The pain begins over the occiput and radiates anteriorly over the entire head as well as behind the eyes. The pain is described as severe pressure. Associated with the headaches are photophobia, phonophobia and nausea without vomiting. Ms. Michael does not report an aura, visual disturbance, or dizziness associated with the headaches. Ms. Michael reports having migraines "for many years." On average, she experiences 1 migraine every 2 months. However, since her admission to [facility] on April 01, 2018, she has experienced nearly daily headaches. At present, Ms. Michael is not receiving migraine prophylaxis. When she does experience a migraine, the patient will take either an [id number]-[id number] analgesic or hydrocodone. While in the hospital, the patient has had acetaminophen, hydrocodone, and morphine as treatments for her headaches. Ms. Michael reports the medications may mildly alleviate the pain. However, the headaches never fully resolve. REVIEW OF SYSTEMS: Abdominal pain, nausea, headache, photophobia, phonophobia. Otherwise, the 12- point review of systems is negative. PAST MEDICAL HISTORY: Hypertension, hyperlipidemia, migraines. PAST SURGICAL HISTORY: Procedures for treatment of varicose veins, left cataract removal, partial hysterectomy, EGD/colonoscopy. PAST HOSPITALIZATIONS: Surgeries/procedures as listed. Multiple hospitalizations for migraines, child x6. FAMILY MEDICAL HISTORY: The patient's paternal and maternal grandparents are . Their medical histories are unknown. Ms. Michael's father is from coronary artery disease with a myocardial infarction. Her mother is . She had a history of diabetes mellitus. Ms. Michael had 3 brothers and 2 sisters. Two brothers are from coronary artery disease with myocardial infarctions. The third brother is alive, but does have heart disease. Both sisters are alive. The elder sister has hypertension, hyperlipidemia, and diabetes mellitus. The younger sister has peripheral vascular disease. Ms. Michael has 6 children, 5 sons and 1 daughter, all of whom are alive and healthy. SOCIAL HISTORY: Ms. Michael is . She is retired. The patient does not report current or prior tobacco, alcohol or recreational drug use. HOME MEDICATIONS: Metoprolol 25 mg by mouth twice daily, atorvastatin 20 mg by mouth at bedtime daily, [place] 10/325 one tablet by mouth every 6 hours as needed for pain. HOSPITAL MEDICATIONS: Reviewed. Please see the list of hospital medications available on the electronic medical record. ALLERGIES: NO KNOWN DRUG ALLERGIES. NO KNOWN FOOD ALLERGIES. NO KNOWN ALLERGIES TO LATEX. NO KNOWN ALLERGIES TO IODINE OR OTHER CONTRAST MATERIALS. PHYSICAL EXAMINATION: VITAL SIGNS: Height 64 inches, weight 163 pounds, BMI 28.1 kg/m2, blood pressure 170/76 mmHg, pulse 73 beats per minute, respiratory rate 16 breaths per minute, oxygen saturation 96% on room air. GENERAL: The patient is awake and alert, does not appear distressed. HEENT: Normocephalic, atraumatic. The left pupil is surgical. The right pupil is round and reactive to light. Moist mucous membranes. NECK: Supple. No appreciable thyromegaly. No appreciable carotid bruits. CARDIOVASCULAR: S1, S2, regular rate and rhythm. No murmurs, rubs, or gallops. RESPIRATORY: Clear to auscultation bilaterally. No wheezes, rhonchi or rales. EXTREMITIES: The skin is warm and dry. No clubbing, cyanosis, or edema. The posterior tibial and dorsalis pedis pulses are 2+ and symmetric. SKIN: No rashes or lesions. NEUROLOGIC: Memory/Attention: The patient is awake and alert, oriented to person, place, time, and situation. Cranial Nerves: Cranial I-not tested. Cranial II, III, IV, and -the left pupil is surgical. The right pupil is round and reactive to light (from 4 mm to 2 mm). Extraocular movements intact. No nystagmus. Cranial nerve V-sensation to light touch and pinprick is intact in the bilateral V1 through V3 distributions. Strength in the temporalis and masseter muscles is within normal limits. Cranial nerve VII-the face is symmetric, as are all facial movements. Strength is within normal limits. Cranial nerve VIII-hearing is intact to finger rub bilaterally. Cranial nerve IX, X-the soft palate elevates equally and symmetrically. Cranial nerve XI-normal strength at the bilateral sternocleidomastoid and trapezius muscles. Cranial nerve XII-the tongue protrudes midline and moves symmetrically from side to side. Strength: Bulk is normal. Strength is 5/5 in the bilateral deltoids, biceps, triceps, wrist flexors and extensors, finger flexors and extensors, intrinsic hand muscles, hip flexors, knee flexors and extensors, ankle dorsiflexion and plantar flexion, and intrinsic foot muscles. Tone is normal. DTRs: Deep tendon reflexes are 2+ and symmetric at the triceps, biceps, brachioradialis and patellas. Deep tendon reflexes are absent and symmetric at the Achilles. Plantar responses are flexor bilaterally. Sensation: Sensation is intact to light touch and pinprick in both arms and both legs. Cerebellar: Uqqngx-nvrn-baclel and heel-anderson movements are intact without dysmetria or other impairment. Gait: Deferred. Speech: Spontaneous speech is normal without appreciable dysarthria or aphasia. Repetition is intact. Involuntary Movements: None. Pronator Drift: None. LABORATORY DATA: The most recent comprehensive metabolic panel reveals a sodium of 132, BUN of 6, total protein of 5.4, albumin of 3.3, and globulin of 2.1. Magnesium 1.8. TSH of 1.193. Cardiac enzymes are negative x1. CBC with differential and platelets, reveals a white blood cell count of 9.11 with 63.5% neutrophils, 21.8% lymphocytes, 11.4% monocytes, 2.1% eosinophils, and 0.5% basophils. A urinalysis collected on April 01, 2018, revealed trace leukocyte esterase, 11-20 white blood cells, few urine epithelial cells and moderate urine bacteria. A urine culture collected on April 01, 2018 grew Pseudo fluorescens/putida. DIAGNOSTIC STUDIES: Electrocardiogram of 04/02/2018: Normal sinus rhythm at 74 beats per minute. Echocardiogram of 04/02/2018: Ejection fraction 65%. Concentric left ventricular hypertrophy. The mitral valve was calcified. Trace mitral and tricuspid regurgitation. Mild pulmonic insufficiency. CT of the abdomen/pelvis, 04/01/2018: Findings suggestive of colitis involving the distal transverse and descending colon, likely infectious or inflammatory in nature. Distal descending and sigmoid colon diverticulosis without discrete inflammatory change. Enlarged right ovary for age, raising the possibility of adnexal mass. Nonemergent MRI of the pelvis with and without contrast is suggested for further evaluation. Small hiatal hernia. Atherosclerotic vascular disease. Hepatic cyst as above. CT of brain without contrast of 04/07/2018: On my review, there is no evidence of recent large territorial ischemia, hemorrhage, mass, or mass effect. There is mild diffuse cerebral atrophy with compensatory dilatation of the ventricles. There are findings suggestive of mild to moderate chronic small vessel ischemic disease. ASSESSMENT AND PLAN: Ms. Michael is a 77-year-old woman with past medical history as detailed, admitted to [facility] on April 01, 2018, with colitis, hypokalemia, hypertension, and urinary tract infection. Throughout her hospitalization, the patient has often endorsed headache, as described in the history of present illness. Ms. Michael's neurological examination is nonfocal. Her laboratory data and other diagnostic studies have been reviewed and are documented above. Ms. Michael has migraine without aura, not intractable, with status migrainosus. Recommendations are as follows: 1. Promethazine 25 mg intravenously every 6 hours x2 doses. 2. Methylprednisolone 125 mg intravenously every 6 hours x2 doses. 3. Valproate 500 mg intravenously every 6 hours x2 doses. 4. This combination of medications should significantly improve the patient's headaches. 5. Defer treatment of the remaining medical comorbidities to the primary and other services following the patient. Thank you for this consultation. I will continue to follow the patient while she remains in the hospital. TIME SPENT: 50 minutes. Candy Uriarte MD CP/REMY /[id number]
[2018-04-08] MEDS: PANTOPRAZOLE 40 MG 10ML VIAL IV SCH (05:15)
[2018-04-08 05:57] LABS: BLOOD UREA NITROGEN 7 mg/dL (7-26); CALCIUM 8.9 mg/dL (8.4-10.2); CARBON DIOXIDE 22 mmol/L (22-29); EST GLOMERULAR FILTRATION RATE > 60 ML/MIN (60-); GLUCOSE 138 mg/dL (74-118); POTASSIUM 3.9 mmol/L (3.5-5.1); SODIUM 128 mmol/L (136-145)
[2018-04-08] MEDS: METRONIDAZOLE 500MG/NS 100ML 100 ML IV SCH (06:00)
[2018-04-08] MEDS: DICYCLOMINE HCL 20 MG TAB PO SCH (06:00)
[2018-04-08 06:14] VITALS: BP 136/62
[2018-04-08 06:46] LABS: ANION GAP 12.9 mmol/L (8-16); BUN/CREATININE RATIO 10 (6-25); CHLORIDE 101 mmol/L (98-107); CREATININE, SERUM 0.68 mg/dL (0.57-1.11)
[2018-04-08 08:23] VITALS: BP 158/70
[2018-04-08] MEDS: BALSAM PERU/CASTOR OIL 60 GM OINT...G. TP SCH (09:05)
[2018-04-08] MEDS: METOPROLOL TARTRATE 50 MG TAB PO SCH (09:08)
[2018-04-08] MEDS: AMILORIDE HCL 5 MG TAB PO SCH (09:08)
[2018-04-08] MEDS: LISINOPRIL 20 MG TAB PO SCH (09:08)
[2018-04-08 09:15] VITALS: BP 106/53
[2018-04-08] MEDS ORDERED: DICYCLOMINE HCL20 MG PO (11:27)
[2018-04-08] MEDS ORDERED: LISINOPRIL10 MG PO (11:28)
[2018-04-08] MEDS ORDERED: PANTOPRAZOLE SO40 MG PO (11:28)
[2018-04-08] MEDS ORDERED: METOPROLOL TART50 MG PO (11:29)
[2018-04-08 12:10] VITALS: BP 158/75
== END 2018-04-08 15:31 | disposition home or self-care (01) | DRG 386 ==
LOC: ER 09:12 → ERHOLD 15:41 → MED/SURG2 16:05 → OBSVTOIN 04-04 16:49
PROVIDERS: ADMIT Internal Medicine; ATTEND Internal Medicine
PROC: 0DB48ZX Excision of Esophagogastric Junction, Via Natural or Artificial Opening Endoscopic, Diagnostic (ICD-10-PCS; 2018-04-03)
PROC: 0DB78ZX Excision of Stomach, Pylorus, Via Natural or Artificial Opening Endoscopic, Diagnostic (ICD-10-PCS; 2018-04-03)
PROC: 0DBB8ZX Excision of Ileum, Via Natural or Artificial Opening Endoscopic, Diagnostic (ICD-10-PCS; principal; 2018-04-03 15:16)
PROC: 0DBG8ZX Excision of Left Large Intestine, Via Natural or Artificial Opening Endoscopic, Diagnostic (ICD-10-PCS; 2018-04-03 15:16)
DX: K51.50 Left sided colitis without complications (principal); N39.0 Urinary tract infection, site not specified; K57.90 Diverticulosis of intestine, part unspecified, without perforation or abscess without bleeding; E86.0 Dehydration; I10 Essential (primary) hypertension; E78.5 Hyperlipidemia, unspecified; E87.6 Hypokalemia; K64.8 Other hemorrhoids; K20.9 Esophagitis, unspecified; K29.70 Gastritis, unspecified, without bleeding; K44.9 Diaphragmatic hernia without obstruction or gangrene; G43.909 Migraine, unspecified, not intractable, without status migrainosus; I25.10 Atherosclerotic heart disease of native coronary artery without angina pectoris; K76.89 Other specified diseases of liver; Z86.718 Personal history of other venous thrombosis and embolism
CPT/HCPCS: 36415; 43239; 45380; 70450; 74177; 80048; 80053; 81001; 82150; 82550; 82553; 83690; 83735; 84100; 84132; 84443; 84484; 85025; 87086; 87186; 88305; 88312; 93005; 93306; 96361; 99284; G0378; J0360; J1610; J1885; J2001; J2250; J2270; J2405; J2550; J2930; J3480; J7030; J7040; J7050; Q9967

== ENCOUNTER 2018-09-19 13:14 | Emergency (ER) | payer MEDICARE, OTHER ==
[~2018-09-19] VITALS: Ht 162.6 cm; Wt 73.9 kg
[~2018-09-19 13:14] MED LIST: ATORVASTATIN CA20 MG PO; DICYCLOMINE HCL20 MG PO; LISINOPRIL10 MG PO; METOPROLOL TART25 MG PO; METOPROLOL TART50 MG PO; NORCO 10-325 T1 EACH PO; PANTOPRAZOLE SO40 MG PO; SIMVASTATIN40 MG PO
--- OUTSIDE RECORDS SUMMARY | 2018-09-19 13:17 | XMS REPORT | Continuity of Care Document ---
Author Author [place] Address Unknown Phone Unavailable Care Team Providers Care Vp Of Customer Experience Strategy Name Role Phone [employer] Information Soapets Unavailable Unavailable Problems Problem Status Onset Date Classification Date Reported Comments Source Discharge Diagnosis: Back pain, chronic 05/05/2014 05/07/2014 [facility] ABDOMINAL PAIN Active 05/05/2014 [facility] Discharge Diagnosis: Chronic pain 11/16/2013 11/19/2013 [facility] Discharge Diagnosis: Back pain 11/16/2013 11/19/2013 [facility] Discharge Diagnosis: Arthritis 11/16/2013 11/19/2013 [facility] LOWER BACK PAIN/LEG PAIN Active 11/16/2013 [facility] SCREENING Active 10/31/2013 [facility] Discharge Diagnosis: Acute viral syndrome 10/20/2013 10/23/2013 [facility] VOMITING Active 10/19/2013 [facility] MENAPAUSAL Active 09/17/2012 [facility] MIGRAINES/VOMITTING/COLD SWEATS Active 02/06/2012 [facility] Arthritis Resolved Problem 09/23/2012 [facility] Hypertension Resolved Problem 09/23/2012 [facility] Arthritis Resolved Problem 05/07/2014 [facility] Hypertension Resolved Problem 05/07/2014 [facility] Migraine Resolved Problem 05/07/2014 [facility] Spinal stenosis Resolved Problem 05/07/2014 [facility] SYMPT FEM CLIMACT STATE Active [facility] XRAY Active [facility] JOINT PAIN-PELVIS Active [facility] Medications Medication Details Route Status Patient Instructions Ordering Provider Order Date Source tramadol hydrochloride 50 MG Oral Tablet 50 mg=1 tab, PO, Q6H, Pain Score 7-10, # 12 tab, 0 Refill(s) Active 05/05/2014 [facility] Dilaudid 0.5 mg, 0.5 mL, Route: IVP, Drug form: INJ, ONCE, Dosing Weight 72.727, kg, Priority: STAT, Start date: 05/05/14 7:09:00, Stop date: 05/05/14 7:09:00 Inactive 05/05/2014 [facility] Zofran 4 mg, 2 mL, Route: IVP, Drug form: INJ, ONCE, Dosing Weight 72.727, kg, Priority: STAT, Start date: 05/05/14 7:09:00, Stop date: 05/05/14 7:09:00Notes: (Same as: Zofran) Inactive 05/05/2014 [facility] Sodium Chloride 0.154 MEQ/ML Injectable Solution 1,000 mL, 1,000 ml/hr, Infuse Over: 1 hr, Route: IV, 1,000, Drug form: INJ, ONCE, Priority: STAT, Dosing Weight 72.727 kg, Start date: 05/05/14 7:09:00, Duration: 1 doses or times, Stop date: 05/05/14 7:09:00 Inactive 05/05/2014 [facility] tramadol hydrochloride 50 MG Oral Tablet [Ultram] 100 mg=2 tab, PO, Q6H, pain, # 20 tab, 0 Refill(s) Active 11/16/2013 [facility] Acetaminophen 325 MG / Hydrocodone Bitartrate 7.5 MG Oral Tablet [Selby 7.5/325] 1 tab, Route: PO, Drug Form: TAB, Dosing Weight 78.182, kg, ONCE, STAT, Start date: 11/16/13 10:35:00, Stop date: 11/16/13 10:35:00 Inactive 11/16/2013 [facility] Ondansetron 4 MG Disintegrating Tablet [Zofran] 4 mg=1 tab, PO, TID, as needed for nausea/vomiting, Dissolve tab under tongue, # 10 tab, 0 Refill(s)Special Instructions: Dissolve tab under tongue Active 10/20/2013 [facility] Acetaminophen 325 MG / Hydrocodone Bitartrate 5 MG Oral Tablet [Selby 5/325] 1 tab, PO, Q4-6H, as needed for pain, # 30 tab, 0 Refill(s) Active 10/20/2013 [facility] Ketorolac 30 mg, Route: IVP, Drug form: INJ, ONCE, Dosing Weight 71.591, kg, Priority: STAT, Start date: 10/20/13 1:54:00, Stop date: 10/20/13 1:54:00 Inactive 10/20/2013 [facility] Zofran 4 mg, 2 mL, Route: IVP, Drug form: INJ, ONCE, Dosing Weight 71.591, kg, Priority: STAT, Start date: 10/20/13 0:21:00, Stop date: 10/20/13 0:21:00Notes: (Same as: Rosy) Inactive 10/20/2013 [facility] Sodium Chloride 0.154 MEQ/ML Injectable Solution 500 mL, 500 ml/hr, Infuse Over: 1 hr, Route: IV, 500, Drug form: INJ, ONCE, Priority: STAT, Dosing Weight 71.591 kg, Start date: 10/20/13 0:20:00, Duration: 1 doses or times, Stop date: 10/20/13 0:20:00 Inactive 10/20/2013 [facility] Phenergan 25 mg rectal suppository 1 supp, UT, Q6H, PRN, 9 supp, Nausea & Vomiting, Substitution Allowed UT Active [facility] 02/07/2012 [facility] Phenergan 25 mg oral tablet 25 mg, 1 tab, PO, Q4H, PRN, 15 tab, Nausea, Substitution Allowed PO Active [facility] 02/07/2012 [facility] Esgic 325 mg-50 mg-40 mg oral tablet 2 tab, PO, Q6H, PRN, 30 tab, Pain, Substitution Allowed, Maintenance, TAB PO Active [facility] 02/07/2012 [facility] Esgic 2 tab, Route: PO, Drug Form: TAB, Dosing Weight 72.727, kg, ONCE, Start date: 02/06/12 20:14:00, Stop date: 02/06/12 20:14:00 PO No Longer Active [facility] 02/07/2012 [facility] diphenhydrAMINE 12.5 mg, 0.25 mL, Route: IVP, Drug form: INJ, ONCE, Dosing Weight 72.727, kg, Priority: STAT, Start date: 02/06/12 20:14:00, Stop date: 02/06/12 20:14:00 IVP No Longer Active [facility] 02/07/2012 [facility] metoclopramide 10 mg, 2 mL, Route: IVP, Drug form: INJ, ONCE, Dosing Weight 72.727, kg, Priority: STAT, Start date: 02/06/12 20:14:00, Stop date: 02/06/12 20:14:00 IVP No Longer Active [facility] 02/07/2012 [facility] Sodium Chloride 0.9% (Bolus) IV 500 mL, 500 ml/hr, Route: IV, Drug Form: INJ, Dosing Weight 72.727, kg, ONCE, Bolus Dose - infuse over 1 hr, STAT, Start date: 02/06/12 20:13:00, Stop date: 02/06/12 20:13:00 IV No Longer Active [facility] 02/07/2012 [facility] ondansetron 4 mg, 2 mL, Route: IVP, Drug form: INJ, ONCE, kg, Priority: STAT, Start date: 10/08/11 12:59:00, Stop date: 10/08/11 12:59:00 IVP No Longer Active [facility] 10/08/2011 [facility] Sodium Chloride 0.9% (Bolus) IV 1,000 mL 1,000 mL, Rate: 1,000 ml/hr, Infuse over: 1 hr, Route: IV, Dosing Weight 81.8 kg, Total Volume: 1,000, Bolus Dose, Priority: STAT, Start date: 10/08/11 12:59:00, Duration: 1 doses or times, Stop date: 10/08/11 13:58:00 IV No Longer Active [facility] 10/08/2011 [facility] Allergies, Adverse Reactions, Alerts No Known Medication Allergies Immunizations No Data Provided for This Section Results Order Name Results Value Reference Range Date Interpretation Comments Source URINE AND STOOL UA Ketones Negative mg/dL Negative mg/dL 05/05/2014 [facility] URINE AND STOOL UA Glucose Negative mg/dL Negative mg/dL 05/05/2014 [facility] URINE AND STOOL UA Bili Negative *NA* (05/05/14 8:21 AM) Negative 05/05/2014 [facility] URINE AND STOOL UA Urobilinogen <=1.0 mg/dL 0.1 - 1.0 05/05/2014 [facility] URINE AND STOOL UA Color Ltyellow 05/05/2014 [facility] URINE AND STOOL UA WBC 7 0 - 5 05/05/2014 [facility] URINE AND STOOL UA RBC 4 0 - 2 05/05/2014 [facility] URINE AND STOOL UA Mucus Few /LPF None Seen /LPF 05/05/2014 [facility] URINE AND STOOL UA Sq Epi Occasional /LPF Few /LPF 05/05/2014 [facility] URINE AND STOOL UA Nitrite Negative (05/05/14 8:21 AM) Negative 05/05/2014 [facility] URINE AND STOOL UA Blood Negative (05/05/14 8:21 AM) Negative 05/05/2014 [facility] URINE AND STOOL UA Leuk Est Moderate *ABN* (05/05/14 8:21 AM) Negative 05/05/2014 [facility] URINE AND STOOL UA Spec Grav 1.010 <=1.030 05/05/2014 [facility] URINE AND STOOL UA Turbidity Clear (05/05/14 8:21 AM) Clear 05/05/2014 [facility] URINE AND STOOL UA pH 7.0 5.0 - 8.0 05/05/2014 [facility] URINE AND STOOL UA Protein Negative mg/dL Negative mg/dL 05/05/2014 [facility] CARDIAC ENZYMES CK MB 1.6 0.5 - 3.6 05/05/2014 [facility] CARDIAC ENZYMES Troponin-I 0.02 0.00 - 0.40 05/05/2014 [facility] CHEM PANEL Magnesium Lvl 2.2 1.8 - 2.4 05/05/2014 [facility] CHEM PANEL Total Protein 7.4 6.4 - 8.4 05/05/2014 [facility] CHEM PANEL ALT 18 0 - 65 05/05/2014 [facility] CHEM PANEL Bili Total 0.4 0.2 - 1.3 05/05/2014 [facility] CHEM PANEL AST 13 0 - 37 05/05/2014 [facility] CHEM PANEL Alk Phos 88 39 - 136 05/05/2014 [facility] PANEL eGFR 92 05/05/2014 <sup>1</sup>Result Comment: The eGFR is calculated using the CKD-EPI formula. In most young, healthy individuals the eGFR will be >90 mL/min/1.73m2. The eGFR declines with age. An eGFR of 60-89 may be normal in some populations, particularly the elderly, for whom the CKD-EPI formula has not been extensively validated. Use of the eGFR is not recommended in the following populations:& lt;br/>
Individuals with unstable creatinine concentrations, including patients [...] should be multiplied by the estimated BMI. [facility] CHEM PANEL Calcium Lvl 8.7 8.5 - 10.5 05/05/2014 [facility] CHEM PANEL Albumin Lvl 3.7 3.5 - 5.0 05/05/2014 [facility] CHEM PANEL Sodium Lvl 139 135 - 145 05/05/2014 [facility] CHEM PANEL BUN 10 7 - 22 05/05/2014 [facility] CHEM PANEL Glucose Lvl 122 70 - 99 05/05/2014 <sup>2</sup>Interpretive Data: Adult reference range values reflect the clinical guidelines
of the [place] [employer]. [facility] CHEM PANEL Potassium Lvl 3.6 3.5 - 5.1 05/05/2014 [facility] CHEM PANEL Creatinine Lvl 0.6 0.5 - 1.4 05/05/2014 [facility] CHEM PANEL Chloride Lvl 104 95 - 109 05/05/2014 [facility] CHEM PANEL CO2 25 24 - 32 05/05/2014 [facility] CHEM PANEL A/G Ratio 1.0 0.7 - 1.6 05/05/2014 [facility] CHEM PANEL Globulin 3.7 2.0 - 4.0 05/05/2014 [facility] CHEM PANEL B/C Ratio 17 6 - 25 05/05/2014 [facility] CHEM PANEL AGAP 13.6 10.0 - 20.0 05/05/2014 [facility] HEMATOLOGY Monocytes 7.7 2.0 - 12.0 05/05/2014 [facility] HEMATOLOGY Eosinophils 2.8 0.0 - 4.0 05/05/2014 [facility] HEMATOLOGY Basophils 0.9 0.0 - 1.0 05/05/2014 [facility] HEMATOLOGY Segs-Bands # 5.9 1.5 - 8.1 05/05/2014 [facility] HEMATOLOGY Lymphocytes # 1.9 1.0 - 5.5 05/05/2014 [facility] HEMATOLOGY Segs 67.1 45.0 - 75.0 05/05/2014 [facility] HEMATOLOGY Lymphocytes 21.5 20.0 - 40.0 05/05/2014 [facility] HEMATOLOGY Eosinophils # 0.2 0.0 - 0.5 05/05/2014 [facility] HEMATOLOGY Monocytes # 0.7 0.0 - 0.8 05/05/2014 [facility] HEMATOLOGY Basophils # 0.1 0.0 - 0.2 05/05/2014 [facility] HEMATOLOGY MCHC 33.5 32.0 - 36.0 05/05/2014 [facility] HEMATOLOGY RDW 14.1 11.5 - 14.5 05/05/2014 [facility] HEMATOLOGY MCH 28.1 27.0 - 31.0 05/05/2014 [facility] HEMATOLOGY MPV 8.4 7.4 - 10.4 05/05/2014 [facility] HEMATOLOGY Platelet 291 133 - 450 05/05/2014 [facility] HEMATOLOGY Hct 38.6 36.0 - 48.0 05/05/2014 [facility] Hgb 12.9 12.0 - 16.0 05/05/2014 [facility] MCV 84.0 80.0 - 98.0 05/05/2014 [facility] HEMATOLOGY RBC 4.60 4.20 - 5.40 05/05/2014 [facility] WBC 8.8 3.7 - 10.4 05/05/2014 [facility] ELECTROLYTES AGAP 11.5 10.0 - 20.0 10/20/2013 [facility] ELECTROLYTES eGFR 92 10/20/2013 <sup>1</sup>Result Comment: The eGFR is calculated using the CKD-EPI formula. In most young, healthy individuals the eGFR will be >90 mL/min/1.73m2. The eGFR declines with age. An eGFR of 60-89 may be normal in some populations, particularly the elderly, for whom the CKD-EPI formula has not been extensively validated. Use of the eGFR is not recommended in the following populations:& lt;br/>
Individuals with unstable creatinine concentrations, including patients [...] should be multiplied by the estimated BMI. [facility] ELECTROLYTES Calcium Lvl 8.7 8.5 - 10.5 10/20/2013 [facility] ELECTROLYTES CO2 26 24 - 32 10/20/2013 [facility] ELECTROLYTES Chloride Lvl 102 95 - 109 10/20/2013 [facility] ELECTROLYTES Creatinine Lvl 0.6 0.5 - 1.4 10/20/2013 [facility] ELECTROLYTES Sodium Lvl 136 135 - 145 10/20/2013 [facility] ELECTROLYTES Potassium Lvl 3.5 3.5 - 5.1 10/20/2013 [facility] ELECTROLYTES BUN 8 7 - 22 10/20/2013 [facility] ELECTROLYTES Glucose Lvl 114 70 - 99 10/20/2013 <sup>2</sup>Interpretive Data: Adult reference range values reflect the clinical guidelines
of the [place] [employer]. [facility] HEMATOLOGY MPV 7.9 7.4 - 10.4 10/20/2013 [facility] HEMATOLOGY MCHC 33.4 32.0 - 36.0 10/20/2013 [facility] HEMATOLOGY Platelet 313 133 - 450 10/20/2013 [facility] HEMATOLOGY RDW 14.1 11.5 - 14.5 10/20/2013 [facility] MCH 28.4 27.0 - 31.0 10/20/2013 [facility] HEMATOLOGY MCV 84.8 80.0 - 98.0 10/20/2013 [facility] HEMATOLOGY RBC 4.34 4.20 - 5.40 10/20/2013 [facility] HEMATOLOGY Hct 36.8 36.0 - 48.0 10/20/2013 [facility] HEMATOLOGY Hgb 12.3 12.0 - 16.0 10/20/2013 [facility] HEMATOLOGY WBC 10.4 3.7 - 10.4 10/20/2013 [facility] HEMATOLOGY Eosinophils 1.8 0.0 - 4.0 10/20/2013 [facility] HEMATOLOGY Monocytes 8.8 2.0 - 12.0 10/20/2013 [facility] HEMATOLOGY Eosinophils # 0.2 0.0 - 0.5 10/20/2013 [facility] HEMATOLOGY Monocytes # 0.9 0.0 - 0.8 10/20/2013 [facility] HEMATOLOGY Basophils # 0.1 0.0 - 0.2 10/20/2013 [facility] HEMATOLOGY Lymphocytes # 3.2 1.0 - 5.5 10/20/2013 [facility] HEMATOLOGY Basophils 0.6 0.0 - 1.0 10/20/2013 [facility] HEMATOLOGY Segs-Bands # 6.0 1.5 - 8.1 10/20/2013 [facility] HEMATOLOGY Lymphocytes 30.9 20.0 - 40.0 10/20/2013 [facility] HEMATOLOGY Segs 57.9 45.0 - 75.0 10/20/2013 [facility] URINALYSIS UA Color Ltyellow 10/08/2011 [facility] URINALYSIS UA Urobilinogen 0.1 - 1.0 10/08/2011 [facility] URINALYSIS UA Ketones Negative mg/dL *NA* (10/08/2011 13:05:00) Negative 10/08/2011 [facility] URINALYSIS UA RBC 1 0 - 2 10/08/2011 [facility] URINALYSIS UA Bacteria Few /HPF *NA* (10/08/2011 13:05:00) None Seen 10/08/2011 [facility] URINALYSIS UA Glucose Negative mg/dL *NA* (10/08/2011 13:05:00) Negative 10/08/2011 NA [facility] URINALYSIS UA Sq Epi None Seen 10/08/2011 NA [facility] URINALYSIS UA Leuk Est Negative (10/08/2011 13:05:00) Negative 10/08/2011 Normal [facility] URINALYSIS UA Nitrite Negative (10/08/2011 13:05:00) Negative 10/08/2011 Normal [facility] URINALYSIS UA WBC <1 0 - 5 10/08/2011 Normal [facility] URINALYSIS UA Blood Negative (10/08/2011 13:05:00) Negative 10/08/2011 Normal [facility] URINALYSIS UA Bili Negative *NA* (10/08/2011 13:05:00) Negative 10/08/2011 NA [facility] URINALYSIS UA Protein Negative mg/dL (10/08/2011 13:05:00) Negative 10/08/2011 Normal [facility] URINALYSIS UA Spec Grav 1.004 <=1.030 10/08/2011 Normal [facility] URINALYSIS UA Turbidity Clear (10/08/2011 13:05:00) Clear 10/08/2011 Normal [facility] URINALYSIS UA pH 7.0 5.0 - 8.0 10/08/2011 Normal [facility] CHEMISTRY Albumin Lvl 3.8 3.5 - 5.0 10/08/2011 [facility] CHEMISTRY Chloride Lvl 102 95 - 109 10/08/2011 Normal [facility] CHEMISTRY Potassium Lvl 3.6 3.5 - 5.1 10/08/2011 [facility] CHEMISTRY Sodium Lvl 136 135 - 145 10/08/2011 Normal [facility] CHEMISTRY Creatinine Lvl 0.5 0.5 - 1.4 10/08/2011 Normal [facility] CHEMISTRY Calcium Lvl 8.5 8.5 - 10.5 10/08/2011 [facility] CHEMISTRY CO2 25 24 - 32 10/08/2011 [facility] CHEMISTRY BUN 11 7 - 22 10/08/2011 Normal [facility] CHEMISTRY Glucose Lvl 130 70 - 99 10/08/2011 [facility] <sup>1</sup>Interpretive Data: Adult reference range values reflect the clinical guidelines
of the [place] [employer]. [facility] CHEMISTRY AST 14 0 - 37 10/08/2011 Normal [facility] CHEMISTRY Bili Total 0.6 0.2 - 1.3 10/08/2011 Normal [facility] CHEMISTRY ALT 23 0 - 65 10/08/2011 Normal [facility] CHEMISTRY Alk Phos 76 39 - 136 10/08/2011 Normal [facility] CHEMISTRY Total Protein 7.8 6.4 - 8.4 10/08/2011 Normal [facility] CHEMISTRY B/C Ratio 22 6 - 25 10/08/2011 Normal [facility] CHEMISTRY AGAP 12.6 10.0 - 20.0 10/08/2011 Normal [facility] CHEMISTRY A/G Ratio 1.0 0.7 - 1.6 10/08/2011 Normal [facility] CHEMISTRY Globulin 4.0 2.0 - 4.0 10/08/2011 Normal [facility] HEMATOLOGY MCV 87.1 81.0 - 99.0 10/08/2011 Normal [facility] HEMATOLOGY MCH 28.9 27.0 - 31.0 10/08/2011 Normal [facility] HEMATOLOGY Hct 40.4 36.0 - 48.0 10/08/2011 Normal [facility] HEMATOLOGY MCHC 33.2 32.0 - 36.0 10/08/2011 Normal [facility] HEMATOLOGY RDW 14.3 11.5 - 14.5 10/08/2011 Normal [facility] HEMATOLOGY Platelet 300 133 - 450 10/08/2011 Normal [facility] HEMATOLOGY MPV 8.1 7.4 - 10.4 10/08/2011 Normal [facility] HEMATOLOGY Hgb 13.4 12.0 - 16.0 10/08/2011 Normal [facility] HEMATOLOGY WBC 9.0 3.7 - 10.4 10/08/2011 Normal [facility] HEMATOLOGY RBC 4.65 4.20 - 5.40 10/08/2011 Normal [facility] HEMATOLOGY Lymphocytes 7.8 20.0 - 40.0 10/08/2011 LOW [facility] HEMATOLOGY Monocytes 1.2 2.0 - 12.0 10/08/2011 LOW [facility] HEMATOLOGY Segs 90.5 45.0 - 75.0 10/08/2011 HI [facility] HEMATOLOGY Eosinophils 0.3 0.0 - 4.0 10/08/2011 Normal [facility] HEMATOLOGY Basophils 0.2 0.0 - 1.0 10/08/2011 Normal [facility] HEMATOLOGY Lymphocytes # 0.7 1.0 - 5.5 10/08/2011 LOW [facility] HEMATOLOGY Eosinophils # 0.0 0.0 - 0.5 10/08/2011 Normal [facility] HEMATOLOGY Monocytes # 0.1 0.0 - 0.8 10/08/2011 Normal [facility] HEMATOLOGY Segs-Bands # 8.2 1.5 - 8.1 10/08/2011 HI [facility] HEMATOLOGY Basophils # 0.0 0.0 - 0.2 10/08/2011 Normal [facility] Pathology Reports No Data Provided for This Section Diagnostic Reports Report Value Date Source Chest 1view DX Examination: Chest x-ray, single view History: Dizziness Comparison: 10/20/2013 Findings: The lungs are clear and without focal consolidation. The cardiomediastinal silhouette is within normal limits. No pleural effusion or pneumothorax is seen. The osseous structures are without focal abnormality. IMPRESSION: No acute cardiopulmonary disease. SL: 05/05/2014 [facility] Renal Stone CT Examination: Renal stone protocol [...] 3. Right hepatic lobe simple cyst. SL: 05/05/2014 [facility] Chest 2 views CHEST, PA AND LATERAL. INDICATION: Cough, chest pain. COMPARISON: Chest 09/03/2010 The heart and mediastinum are not remarkable. The lungs are moderately inflated. There is mild interstitial scarring at the bases. No pneumonia, vascular congestion or pleural effusion is seen. Minor thoracic spondylosis is noted. IMPRESSION: No acute abnormality. SL: 12 10/20/2013 [facility] Bone Density Scan BONE DENSITY: TECHNIQUE: Dual [...] (T-score) below peak bone mass. SL:13 09/21/2012 [facility] Digital Mammo Screening Jaylen MA - DIGITAL MAMMO SCREENING JAYLEN MA BILATERAL DIGITAL SCREENING MAMMOGRAM WITH CAD: 09/21/2012 CLINICAL: Routine. Current study was evaluated with a Computer Aided Detection (CAD) system. Comparison is made to exams dated: 08/01/2011 mammogram and 06/25/2007 mammogram - [facility]. There are scattered fibroglandular elements in both [...] recommended. SUMMARY: SL: 13. Iain roberts/jake:09/22/2012 07:56:44 [employer]rosion Control Coordinator: Silvana Garcia, [facility] letter sent: Normal exam Mammogram BI-RADS: 2 Benign 09/21/2012 [facility] Hip bilateral w pelvis and both lat [...] bilateral hips or pelvis. SL: 14 09/17/2012 [facility] Consultation Notes No Data Provided for This Section Discharge Summaries No Data Provided for This Section History and Physicals No Data Provided for This Section Vital Signs Vital Sign Value Date Comments Source Temperature Oral (F) 98.3 F 05/05/2014 [facility] Respitory Rate 13 05/05/2014 [facility] Systolic (mm Hg) 141 05/05/2014 [facility] Diastolic (mm Hg) 60 05/05/2014 [facility] Systolic (mm Hg) 167 05/05/2014 [facility] Diastolic (mm Hg) 71 05/05/2014 [facility] Respitory Rate 17 05/05/2014 [facility] Systolic (mm Hg) 176 05/05/2014 [facility] Diastolic (mm Hg) 71 05/05/2014 [facility] Temperature Oral (F) 98.1 F 05/05/2014 [facility] Heart Rate 58 05/05/2014 [facility] Respitory Rate 18 05/05/2014 [facility] Weight 72.727 05/05/2014 [facility] BMI Calculated 27.52 05/05/2014 [facility] Height 162.56 cm 05/05/2014 [facility] Heart Rate 62 05/05/2014 [facility] Temperature Oral (F) 98.4 F 05/05/2014 [facility] Heart Rate 74 11/16/2013 [facility] Temperature Oral (F) 98.1 F 11/16/2013 [facility] Diastolic (mm Hg) 79 11/16/2013 [facility] Systolic (mm Hg) 145 11/16/2013 [facility] Respitory Rate 16 11/16/2013 [facility] Height 162.56 cm 11/16/2013 [facility] BMI Calculated 29.59 11/16/2013 [facility] Weight 78.182 11/16/2013 [facility] Temperature Oral (F) 98.3 F 11/16/2013 [facility] Systolic (mm Hg) 152 11/16/2013 [facility] Respitory Rate 16 11/16/2013 [facility] Heart Rate 80 11/16/2013 [facility] Diastolic (mm Hg) 83 11/16/2013 [facility] Respitory Rate 16 10/20/2013 [facility] Temperature Oral (F) 98.9 F 10/20/2013 [facility] Heart Rate 65 10/20/2013 [facility] Diastolic (mm Hg) 68 10/20/2013 [facility] Systolic (mm Hg) 156 10/20/2013 [facility] Diastolic (mm Hg) 76 10/20/2013 [facility] Systolic (mm Hg) 157 10/20/2013 [facility] Heart Rate 67 10/20/2013 [facility] Respitory Rate 18 10/20/2013 [facility] Weight 71.591 10/20/2013 [facility] Heart Rate 67 10/20/2013 [facility] Respitory Rate 20 10/20/2013 [facility] Systolic (mm Hg) 162 10/20/2013 [facility] Diastolic (mm Hg) 89 10/20/2013 [facility] Temperature Oral (F) 98.9 F 10/20/2013 [facility] Weight 72.727 02/07/2012 [facility] Height 162.56 cm 02/07/2012 [facility] Weight 81.818 10/08/2011 [facility] Height 162.56 cm 10/08/2011 [facility] Encounters Location Location Details Encounter Type Encounter Number Reason For Visit Attending Provider ADM Date DC Date Status Source [facility] Emergency [id number] CONNIE PERALTA 10/08/2011 10/08/2011 Discharged [facility] Emergency [id number] JASE PISANO 02/06/2012 02/06/2012 Discharged [facility] Outpatient [id number] XRAY MIRANDA BERNAL 09/17/2012 Active [facility] Outpatient [id number] MENAPAUSAL MIRANDA BERNAL 09/21/2012 Active [facility] [id number] René Arndt 10/20/2013 10/20/2013 [facility] [id number] Russ Alejo 11/16/2013 11/16/2013 [facility] [id number] Bertha Houston 05/05/2014 05/05/2014 [facility] Procedures No Data Provided for This Section Assessment and Plan No Data Provided for This Section Plan of Care No Data Provided for This Section Social History Social History Date Source Social History TypeResponse Smoking Status Never smoker; Exposure to Tobacco Smoke None; Cigarette Smoking Last 365 Days No; Reg Smoking Cessation Counseling No 05/05/2014 [facility] Family History No Data Provided for This Section Advance Directives No Data Provided for This Section Functional Status No Data Provided for This Section
[2018-09-19 14:19] LABS: CLARITY,URINE HAZY (CLEAR); COLOR,URINE YELLOW (YELLOW); LEUKOCYTE ESTERASE ,URINE LARGE (NEGATIVE)
[2018-09-19 14:20] LABS: BILIRUBIN,URINE NEGATIVE (NEGATIVE); KETONES,URINE NEGATIVE (NEGATIVE); NITRITE,URINE NEGATIVE (NEGATIVE); PROTEIN,URINE DIPSTICK 2+ (NEGATIVE); URINE UROBILINOGEN 0.2 mg/dL (0.2 - 1)
[2018-09-19 14:22] LABS: AMORPHOUS SEDIMENT,URINE FEW (FEW); BACTERIA,URINE MANY /HPF; EPITHELIAL CELLS,URINE FEW /LPF; MUCUS,URINE FEW (RARE); WBC,URINE (MAN) >50 /HPF (0-5)
[2018-09-19] MEDS ORDERED: CEFTRIAXONE SOD 1 GM VIAL IM ONE (16:00)
[2018-09-19] MEDS ORDERED: LIDOCAINE HCL 1% LOCAL INJ 20 ML VIAL INJ ONE (16:15)
[2018-09-19] MEDS ORDERED: CEFDINIR300 MG PO (16:17)
[2018-09-19] MEDS ORDERED: PYRIDIUM100 MG PO (16:17)
== END 2018-09-19 17:06 | disposition home or self-care (01) ==
LOC: ER 13:14
DX: R30.0 Dysuria (principal); N30.01 Acute cystitis with hematuria; I10 Essential (primary) hypertension; E78.5 Hyperlipidemia, unspecified; Z86.718 Personal history of other venous thrombosis and embolism
CPT/HCPCS: 81001; 87086; 87186; 96372; 99282; J0696; J2001

== ENCOUNTER 2018-09-22 14:21 | Emergency (ER) | payer MEDICARE, OTHER ==
[~2018-09-22] VITALS: Ht 162.6 cm; Wt 73.9 kg
[~2018-09-22 14:21] MED LIST changes: +CEFDINIR300 MG PO; +PYRIDIUM100 MG PO
--- OUTSIDE RECORDS SUMMARY | 2018-09-22 14:25 | XMS REPORT | Continuity of Care Document ---
Author Author [employer] Address Unknown Phone Unavailable Care Team Providers Care Discharge Coordinator Name Role Phone [employer] Unavailable Unavailable Problems Problem Status Onset Date Classification Date Reported Comments Source Discharge Diagnosis: Back pain, chronic 05/05/2014 05/07/2014 [facility] ABDOMINAL PAIN Active 05/05/2014 [facility] Discharge Diagnosis: Chronic pain 11/16/2013 11/19/2013 [facility] Discharge Diagnosis: Back pain 11/16/2013 11/19/2013 [facility] Discharge Diagnosis: Arthritis 11/16/2013 11/19/2013 [facility] LOWER BACK PAIN/LEG PAIN Active 11/16/2013 [facility] SCREENING Active 10/31/2013 [facility] Discharge Diagnosis: Acute viral syndrome 10/20/2013 10/23/2013 [facility] VOMITING Active 10/19/2013 [facility] MENAPAUSAL Active 09/17/2012 [facility] MIGRAINES/VOMITTING/COLD SWEATS Active 02/06/2012 [facility] Arthritis Resolved Problem 09/23/2012 [facility] Hypertension Resolved Problem 09/23/2012 [facility] Arthritis Resolved Problem 05/07/2014 [facility] Hypertension Resolved Problem 05/07/2014 [facility] Migraine Resolved Problem 05/07/2014 [facility] Spinal stenosis Resolved Problem 05/07/2014 [facility] SYMPT FEM CLIMACT STATE Active [facility] XRAY Active [facility] JOINT PAIN-PELVIS Active [facility] Medications Medication Details Route Status Patient Instructions Ordering Provider Order Date Source tramadol hydrochloride 50 MG Oral Tablet 50 mg=1 tab, PO, Q6H, Pain Score 7-10, # 12 tab, 0 Refill(s) Active 05/05/2014 [facility] Dilaudid 0.5 mg, 0.5 mL, Route: IVP, Drug form: INJ, ONCE, Dosing Weight 72.727, kg, Priority: STAT, Start date: 05/05/14 7:09:00, Stop date: 05/05/14 7:09:00 Inactive 05/05/2014 [facility] Zofran 4 mg, 2 mL, Route: IVP, Drug form: INJ, ONCE, Dosing Weight 72.727, kg, Priority: STAT, Start date: 05/05/14 7:09:00, Stop date: 05/05/14 7:09:00Notes: (Same as: Zofran) Inactive 05/05/2014 [facility] Sodium Chloride 0.154 MEQ/ML Injectable Solution 1,000 mL, 1,000 ml/hr, Infuse Over: 1 hr, Route: IV, 1,000, Drug form: INJ, ONCE, Priority: STAT, Dosing Weight 72.727 kg, Start date: 05/05/14 7:09:00, Duration: 1 doses or times, Stop date: 05/05/14 7:09:00 Inactive 05/05/2014 [facility] tramadol hydrochloride 50 MG Oral Tablet [Ultram] 100 mg=2 tab, PO, Q6H, pain, # 20 tab, 0 Refill(s) Active 11/16/2013 [facility] Acetaminophen 325 MG / Hydrocodone Bitartrate 7.5 MG Oral Tablet [Comstock 7.5/325] 1 tab, Route: PO, Drug Form: TAB, Dosing Weight 78.182, kg, ONCE, STAT, Start date: 11/16/13 10:35:00, Stop date: 11/16/13 10:35:00 Inactive 11/16/2013 [facility] Ondansetron 4 MG Disintegrating Tablet [Zofran] 4 mg=1 tab, PO, TID, as needed for nausea/vomiting, Dissolve tab under tongue, # 10 tab, 0 Refill(s)Special Instructions: Dissolve tab under tongue Active 10/20/2013 [facility] Acetaminophen 325 MG / Hydrocodone Bitartrate 5 MG Oral Tablet [Comstock 5/325] 1 tab, PO, Q4-6H, as needed for pain, # 30 tab, 0 Refill(s) Active 10/20/2013 [facility] Ketorolac 30 mg, Route: IVP, Drug form: INJ, ONCE, Dosing Weight 71.591, kg, Priority: STAT, Start date: 10/20/13 1:54:00, Stop date: 10/20/13 1:54:00 Inactive 10/20/2013 [facility] Zofran 4 mg, 2 mL, Route: IVP, Drug form: INJ, ONCE, Dosing Weight 71.591, kg, Priority: STAT, Start date: 10/20/13 0:21:00, Stop date: 10/20/13 0:21:00Notes: (Same as: Rosy) Inactive 10/20/2013 [facility] Sodium Chloride 0.154 MEQ/ML Injectable Solution 500 mL, 500 ml/hr, Infuse Over: 1 hr, Route: IV, 500, Drug form: INJ, ONCE, Priority: STAT, Dosing Weight 71.591 kg, Start date: 10/20/13 0:20:00, Duration: 1 doses or times, Stop date: 10/20/13 0:20:00 Inactive 10/20/2013 [facility] Phenergan 25 mg rectal suppository 1 supp, MS, Q6H, PRN, 9 supp, Nausea & Vomiting, Substitution Allowed MS Active [facility] 02/07/2012 [facility] Phenergan 25 mg oral tablet 25 mg, 1 tab, PO, Q4H, PRN, 15 tab, Nausea, Substitution Allowed PO Active [facility] 02/07/2012 [facility] Esgic 325 mg-50 mg-40 mg oral tablet 2 tab, PO, Q6H, PRN, 30 tab, Pain, Substitution Allowed, Maintenance, TAB PO Active [facility] 02/07/2012 [facility] Esgic 2 tab, Route: PO, Drug Form: TAB, Dosing Weight 72.727, kg, ONCE, Start date: 02/06/12 20:14:00, Stop date: 02/06/12 20:14:00 PO No Longer Active [facility] 02/07/2012 [facility] diphenhydrAMINE 12.5 mg, 0.25 mL, Route: IVP, Drug form: INJ, ONCE, Dosing Weight 72.727, kg, Priority: STAT, Start date: 02/06/12 20:14:00, Stop date: 02/06/12 20:14:00 IVP No Longer Active [facility] 02/07/2012 [facility] metoclopramide 10 mg, 2 mL, Route: IVP, Drug form: INJ, ONCE, Dosing Weight 72.727, kg, Priority: STAT, Start date: 02/06/12 20:14:00, Stop date: 02/06/12 20:14:00 IVP No Longer Active [facility] 02/07/2012 [facility] Sodium Chloride 0.9% (Bolus) IV 500 mL, 500 ml/hr, Route: IV, Drug Form: INJ, Dosing Weight 72.727, kg, ONCE, Bolus Dose - infuse over 1 hr, STAT, Start date: 02/06/12 20:13:00, Stop date: 02/06/12 20:13:00 IV No Longer Active [facility] 02/07/2012 [facility] ondansetron 4 mg, 2 mL, Route: IVP, Drug form: INJ, ONCE, kg, Priority: STAT, Start date: 10/08/11 12:59:00, Stop date: 10/08/11 12:59:00 IVP No Longer Active [facility] 10/08/2011 [facility] Sodium Chloride 0.9% (Bolus) IV 1,000 mL 1,000 mL, Rate: 1,000 ml/hr, Infuse over: 1 hr, Route: IV, Dosing Weight 81.8 kg, Total Volume: 1,000, Bolus Dose, Priority: STAT, Start date: 10/08/11 12:59:00, Duration: 1 doses or times, Stop date: 10/08/11 13:58:00 IV No Longer Active [facility] 10/08/2011 [facility] Allergies, Adverse Reactions, Alerts No Known Medication Allergies Immunizations No Data Provided for This Section Results Order Name Results Value Reference Range Date Interpretation Comments Source URINE AND STOOL UA Ketones Negative mg/dL Negative mg/dL 05/05/2014 [facility] URINE AND STOOL UA Glucose Negative mg/dL Negative mg/dL 05/05/2014 [facility] URINE AND STOOL UA Bili Negative *NA* (05/05/14 8:21 AM) Negative 05/05/2014 [facility] URINE AND STOOL UA Urobilinogen <=1.0 mg/dL 0.1 - 1.0 05/05/2014 [facility] URINE AND STOOL UA Color Ltyellow 05/05/2014 [facility] URINE AND STOOL UA WBC 7 0 - 5 05/05/2014 [facility] URINE AND STOOL UA RBC 4 0 - 2 05/05/2014 [facility] URINE AND STOOL UA Mucus Few /LPF None Seen /LPF 05/05/2014 [facility] URINE AND STOOL UA Sq Epi Occasional /LPF Few /LPF 05/05/2014 [facility] URINE AND STOOL UA Nitrite Negative (05/05/14 8:21 AM) Negative 05/05/2014 [facility] URINE AND STOOL UA Blood Negative (05/05/14 8:21 AM) Negative 05/05/2014 [facility] URINE AND STOOL UA Leuk Est Moderate *ABN* (05/05/14 8:21 AM) Negative 05/05/2014 [facility] URINE AND STOOL UA Spec Grav 1.010 <=1.030 05/05/2014 [facility] URINE AND STOOL UA Turbidity Clear (05/05/14 8:21 AM) Clear 05/05/2014 [facility] URINE AND STOOL UA pH 7.0 5.0 - 8.0 05/05/2014 [facility] URINE AND STOOL UA Protein Negative mg/dL Negative mg/dL 05/05/2014 [facility] CARDIAC ENZYMES CK MB 1.6 0.5 - 3.6 05/05/2014 [facility] CARDIAC ENZYMES Troponin-I 0.02 0.00 - 0.40 05/05/2014 [facility] CHEM PANEL Magnesium Lvl 2.2 1.8 - 2.4 05/05/2014 [facility] CHEM PANEL Total Protein 7.4 6.4 - 8.4 05/05/2014 [facility] CHEM PANEL ALT 18 0 - 65 05/05/2014 [facility] CHEM PANEL Bili Total 0.4 0.2 - 1.3 05/05/2014 [facility] CHEM PANEL AST 13 0 - 37 05/05/2014 [facility] CHEM PANEL Alk Phos 88 39 - 136 05/05/2014 [facility] PANEL eGFR 92 05/05/2014 <sup>1</sup>Result Comment: [...] should be multiplied by the estimated BMI. [facility] CHEM PANEL Calcium Lvl 8.7 8.5 - 10.5 05/05/2014 [facility] CHEM PANEL Albumin Lvl 3.7 3.5 - 5.0 05/05/2014 [facility] CHEM PANEL Sodium Lvl 139 135 - 145 05/05/2014 [facility] CHEM PANEL BUN 10 7 - 22 05/05/2014 [facility] CHEM PANEL Glucose Lvl 122 70 - 99 05/05/2014 <sup>2</sup>Interpretive Data: Adult reference range values reflect the clinical guidelines
of the [employer]. [facility] CHEM PANEL Potassium Lvl 3.6 3.5 - 5.1 05/05/2014 [facility] CHEM PANEL Creatinine Lvl 0.6 0.5 - 1.4 05/05/2014 [facility] CHEM PANEL Chloride Lvl 104 95 - 109 05/05/2014 [facility] CHEM PANEL CO2 25 24 - 32 05/05/2014 [facility] CHEM PANEL A/G Ratio 1.0 0.7 - 1.6 05/05/2014 [facility] CHEM PANEL Globulin 3.7 2.0 - 4.0 05/05/2014 [facility] CHEM PANEL B/C Ratio 17 6 - 25 05/05/2014 [facility] CHEM PANEL AGAP 13.6 10.0 - 20.0 05/05/2014 [facility] HEMATOLOGY Monocytes 7.7 2.0 - 12.0 05/05/2014 [facility] HEMATOLOGY Eosinophils 2.8 0.0 - 4.0 05/05/2014 [facility] HEMATOLOGY Basophils 0.9 0.0 - 1.0 05/05/2014 [facility] HEMATOLOGY Segs-Bands # 5.9 1.5 - 8.1 05/05/2014 [facility] HEMATOLOGY Lymphocytes # 1.9 1.0 - 5.5 05/05/2014 [facility] HEMATOLOGY Segs 67.1 45.0 - 75.0 05/05/2014 [facility] HEMATOLOGY Lymphocytes 21.5 20.0 - 40.0 05/05/2014 [facility] HEMATOLOGY Eosinophils # 0.2 0.0 - 0.5 05/05/2014 [facility] HEMATOLOGY Monocytes # 0.7 0.0 - 0.8 05/05/2014 [facility] HEMATOLOGY Basophils # 0.1 0.0 - 0.2 05/05/2014 [facility] HEMATOLOGY MCHC 33.5 32.0 - 36.0 05/05/2014 [facility] HEMATOLOGY RDW 14.1 11.5 - 14.5 05/05/2014 [facility] HEMATOLOGY MCH 28.1 27.0 - 31.0 05/05/2014 [facility] HEMATOLOGY MPV 8.4 7.4 - 10.4 05/05/2014 [facility] HEMATOLOGY Platelet 291 133 - 450 05/05/2014 [facility] HEMATOLOGY Hct 38.6 36.0 - 48.0 05/05/2014 [facility] Hgb 12.9 12.0 - 16.0 05/05/2014 [facility] MCV 84.0 80.0 - 98.0 05/05/2014 [facility] HEMATOLOGY RBC 4.60 4.20 - 5.40 05/05/2014 [facility] WBC 8.8 3.7 - 10.4 05/05/2014 [facility] ELECTROLYTES AGAP 11.5 10.0 - 20.0 10/20/2013 [facility] ELECTROLYTES eGFR 92 10/20/2013 <sup>1</sup>Result Comment: The [...] should be multiplied by the estimated BMI. [facility] ELECTROLYTES Calcium Lvl 8.7 8.5 - 10.5 10/20/2013 [facility] ELECTROLYTES CO2 26 24 - 32 10/20/2013 [facility] ELECTROLYTES Chloride Lvl 102 95 - 109 10/20/2013 [facility] ELECTROLYTES Creatinine Lvl 0.6 0.5 - 1.4 10/20/2013 [facility] ELECTROLYTES Sodium Lvl 136 135 - 145 10/20/2013 [facility] ELECTROLYTES Potassium Lvl 3.5 3.5 - 5.1 10/20/2013 [facility] ELECTROLYTES BUN 8 7 - 22 10/20/2013 [facility] ELECTROLYTES Glucose Lvl 114 70 - 99 10/20/2013 <sup>2</sup>Interpretive Data: Adult reference range values reflect the clinical guidelines
of the [employer]. [facility] HEMATOLOGY MPV 7.9 7.4 - 10.4 10/20/2013 [facility] HEMATOLOGY MCHC 33.4 32.0 - 36.0 10/20/2013 [facility] HEMATOLOGY Platelet 313 133 - 450 10/20/2013 [facility] HEMATOLOGY RDW 14.1 11.5 - 14.5 10/20/2013 [facility] MCH 28.4 27.0 - 31.0 10/20/2013 [facility] HEMATOLOGY MCV 84.8 80.0 - 98.0 10/20/2013 [facility] HEMATOLOGY RBC 4.34 4.20 - 5.40 10/20/2013 [facility] HEMATOLOGY Hct 36.8 36.0 - 48.0 10/20/2013 [facility] HEMATOLOGY Hgb 12.3 12.0 - 16.0 10/20/2013 [facility] HEMATOLOGY WBC 10.4 3.7 - 10.4 10/20/2013 [facility] HEMATOLOGY Eosinophils 1.8 0.0 - 4.0 10/20/2013 [facility] HEMATOLOGY Monocytes 8.8 2.0 - 12.0 10/20/2013 [facility] HEMATOLOGY Eosinophils # 0.2 0.0 - 0.5 10/20/2013 [facility] HEMATOLOGY Monocytes # 0.9 0.0 - 0.8 10/20/2013 [facility] HEMATOLOGY Basophils # 0.1 0.0 - 0.2 10/20/2013 [facility] HEMATOLOGY Lymphocytes # 3.2 1.0 - 5.5 10/20/2013 [facility] HEMATOLOGY Basophils 0.6 0.0 - 1.0 10/20/2013 [facility] HEMATOLOGY Segs-Bands # 6.0 1.5 - 8.1 10/20/2013 [facility] HEMATOLOGY Lymphocytes 30.9 20.0 - 40.0 10/20/2013 [facility] HEMATOLOGY Segs 57.9 45.0 - 75.0 10/20/2013 [facility] URINALYSIS UA Color Ltyellow 10/08/2011 [facility] URINALYSIS UA Urobilinogen 0.1 - 1.0 10/08/2011 [facility] URINALYSIS UA Ketones Negative mg/dL *NA* (10/08/2011 13:05:00) Negative 10/08/2011 NA [facility] URINALYSIS UA RBC 1 0 - 2 10/08/2011 Normal [facility] URINALYSIS UA Bacteria Few /HPF *NA* (10/08/2011 13:05:00) None Seen 10/08/2011 [facility] URINALYSIS UA Glucose Negative mg/dL *NA* (10/08/2011 13:05:00) Negative 10/08/2011 NA [facility] URINALYSIS UA Sq Epi None Seen 10/08/2011 NA [facility] URINALYSIS UA Leuk Est Negative (10/08/2011 13:05:00) Negative 10/08/2011 Normal [facility] URINALYSIS UA Nitrite Negative (10/08/2011 13:05:00) Negative 10/08/2011 Normal [facility] URINALYSIS UA WBC <1 0 - 5 10/08/2011 Normal [facility] URINALYSIS UA Blood Negative (10/08/2011 13:05:00) Negative 10/08/2011 Normal [facility] URINALYSIS UA Bili Negative *NA* (10/08/2011 13:05:00) Negative 10/08/2011 NA [facility] URINALYSIS UA Protein Negative mg/dL (10/08/2011 13:05:00) Negative 10/08/2011 Normal [facility] URINALYSIS UA Spec Grav 1.004 <=1.030 10/08/2011 Normal [facility] URINALYSIS UA Turbidity Clear (10/08/2011 13:05:00) Clear 10/08/2011 Normal [facility] URINALYSIS UA pH 7.0 5.0 - 8.0 10/08/2011 Normal [facility] CHEMISTRY Albumin Lvl 3.8 3.5 - 5.0 10/08/2011 [facility] CHEMISTRY Chloride Lvl 102 95 - 109 10/08/2011 Normal [facility] CHEMISTRY Potassium Lvl 3.6 3.5 - 5.1 10/08/2011 Normal [facility] CHEMISTRY Sodium Lvl 136 135 - 145 10/08/2011 Normal [facility] CHEMISTRY Creatinine Lvl 0.5 0.5 - 1.4 10/08/2011 Normal [facility] CHEMISTRY Calcium Lvl 8.5 8.5 - 10.5 10/08/2011 [facility] CHEMISTRY CO2 25 24 - 32 10/08/2011 Normal [facility] CHEMISTRY BUN 11 7 - 22 10/08/2011 Normal [facility] CHEMISTRY Glucose Lvl 130 70 - 99 10/08/2011 [facility] <sup>1</sup>Interpretive Data: Adult reference range values reflect the clinical guidelines
of the [place] [employer]. [facility] CHEMISTRY AST 14 0 - 37 10/08/2011 Normal [facility] CHEMISTRY Bili Total 0.6 0.2 - 1.3 10/08/2011 Normal [facility] CHEMISTRY ALT 23 0 - 65 10/08/2011 Normal [facility] CHEMISTRY Alk Phos 76 39 - 136 10/08/2011 Normal [facility] CHEMISTRY Total Protein 7.8 6.4 - 8.4 10/08/2011 Normal [facility] CHEMISTRY B/C Ratio 22 6 - 25 10/08/2011 Normal [facility] CHEMISTRY AGAP 12.6 10.0 - 20.0 10/08/2011 Normal [facility] CHEMISTRY A/G Ratio 1.0 0.7 - 1.6 10/08/2011 Normal [facility] CHEMISTRY Globulin 4.0 2.0 - 4.0 10/08/2011 Normal [facility] HEMATOLOGY MCV 87.1 81.0 - 99.0 10/08/2011 Normal [facility] HEMATOLOGY MCH 28.9 27.0 - 31.0 10/08/2011 Normal [facility] HEMATOLOGY Hct 40.4 36.0 - 48.0 10/08/2011 Normal [facility] HEMATOLOGY MCHC 33.2 32.0 - 36.0 10/08/2011 Normal [facility] HEMATOLOGY RDW 14.3 11.5 - 14.5 10/08/2011 Normal [facility] HEMATOLOGY Platelet 300 133 - 450 10/08/2011 Normal [facility] HEMATOLOGY MPV 8.1 7.4 - 10.4 10/08/2011 Normal [facility] HEMATOLOGY Hgb 13.4 12.0 - 16.0 10/08/2011 Normal [facility] HEMATOLOGY WBC 9.0 3.7 - 10.4 10/08/2011 Normal [facility] HEMATOLOGY RBC 4.65 4.20 - 5.40 10/08/2011 Normal [facility] HEMATOLOGY Lymphocytes 7.8 20.0 - 40.0 10/08/2011 LOW [facility] HEMATOLOGY Monocytes 1.2 2.0 - 12.0 10/08/2011 LOW [facility] HEMATOLOGY Segs 90.5 45.0 - 75.0 10/08/2011 HI [facility] HEMATOLOGY Eosinophils 0.3 0.0 - 4.0 10/08/2011 Normal [facility] HEMATOLOGY Basophils 0.2 0.0 - 1.0 10/08/2011 Normal [facility] HEMATOLOGY Lymphocytes # 0.7 1.0 - 5.5 10/08/2011 LOW [facility] HEMATOLOGY Eosinophils # 0.0 0.0 - 0.5 10/08/2011 Normal [facility] HEMATOLOGY Monocytes # 0.1 0.0 - 0.8 10/08/2011 Normal [facility] HEMATOLOGY Segs-Bands # 8.2 1.5 - 8.1 10/08/2011 HI [facility] HEMATOLOGY Basophils # 0.0 0.0 - 0.2 10/08/2011 Normal [facility] Pathology Reports No Data Provided for This Section Diagnostic Reports Report Value Date Source Chest 1view DX Examination: Chest x-ray, single view History: Dizziness Comparison: 10/20/2013 Findings: The lungs are clear and without focal consolidation. The cardiomediastinal silhouette is within normal limits. No pleural effusion or pneumothorax is seen. The osseous structures are without focal abnormality. IMPRESSION: No acute cardiopulmonary disease. SL: 05/05/2014 [facility] Renal Stone CT Examination: Renal stone protocol [...] Right hepatic lobe simple cyst. SL: 05/05/2014 [facility] Chest 2 views CHEST, PA AND LATERAL. INDICATION: Cough, chest pain. COMPARISON: Chest 09/03/2010 The heart and mediastinum are not remarkable. The lungs are moderately inflated. There is mild interstitial scarring at the bases. No pneumonia, vascular congestion or pleural effusion is seen. Minor thoracic spondylosis is noted. IMPRESSION: No acute abnormality. SL: 12 10/20/2013 [facility] Bone Density Scan BONE DENSITY: TECHNIQUE: Dual [...] (T-score) below peak bone mass. SL:13 09/21/2012 [facility] Digital Mammo Screening Jaylen MA - DIGITAL MAMMO SCREENING JAYLEN MA BILATERAL DIGITAL SCREENING MAMMOGRAM WITH CAD: 09/21/2012 CLINICAL: Routine. Current study was evaluated with a Computer Aided Detection (CAD) system. Comparison is made to exams dated: 08/01/2011 mammogram and 06/25/2007 mammogram - [facility]. There are scattered fibroglandular elements in both [...] recommended. SUMMARY: SL: 13. Iain roberts/jake:09/22/2012 07:56:44 [employer] Operator: Silvana Garcia, [facility] letter sent: Normal exam Mammogram BI-RADS: 2 Benign 09/21/2012 [facility] Hip bilateral w pelvis and both lat [...] bilateral hips or pelvis. SL: 14 09/17/2012 [facility] Consultation Notes No Data Provided for This Section Discharge Summaries No Data Provided for This Section History and Physicals No Data Provided for This Section Vital Signs Vital Sign Value Date Comments Source Temperature Oral (F) 98.3 F 05/05/2014 [facility] Respitory Rate 13 05/05/2014 [facility] Systolic (mm Hg) 141 05/05/2014 [facility] Diastolic (mm Hg) 60 05/05/2014 [facility] Systolic (mm Hg) 167 05/05/2014 [facility] Diastolic (mm Hg) 71 05/05/2014 [facility] Respitory Rate 17 05/05/2014 [facility] Systolic (mm Hg) 176 05/05/2014 [facility] Diastolic (mm Hg) 71 05/05/2014 [facility] Temperature Oral (F) 98.1 F 05/05/2014 [facility] Heart Rate 58 05/05/2014 [facility] Respitory Rate 18 05/05/2014 [facility] Weight 72.727 05/05/2014 [facility] BMI Calculated 27.52 05/05/2014 [facility] Height 162.56 cm 05/05/2014 [facility] Heart Rate 62 05/05/2014 [facility] Temperature Oral (F) 98.4 F 05/05/2014 [facility] Heart Rate 74 11/16/2013 [facility] Temperature Oral (F) 98.1 F 11/16/2013 [facility] Diastolic (mm Hg) 79 11/16/2013 [facility] Systolic (mm Hg) 145 11/16/2013 [facility] Respitory Rate 16 11/16/2013 [facility] Height 162.56 cm 11/16/2013 [facility] BMI Calculated 29.59 11/16/2013 [facility] Weight 78.182 11/16/2013 [facility] Temperature Oral (F) 98.3 F 11/16/2013 [facility] Systolic (mm Hg) 152 11/16/2013 [facility] Respitory Rate 16 11/16/2013 [facility] Heart Rate 80 11/16/2013 [facility] Diastolic (mm Hg) 83 11/16/2013 [facility] Respitory Rate 16 10/20/2013 [facility] Temperature Oral (F) 98.9 F 10/20/2013 [facility] Heart Rate 65 10/20/2013 [facility] Diastolic (mm Hg) 68 10/20/2013 [facility] Systolic (mm Hg) 156 10/20/2013 [facility] Diastolic (mm Hg) 76 10/20/2013 [facility] Systolic (mm Hg) 157 10/20/2013 [facility] Heart Rate 67 10/20/2013 [facility] Respitory Rate 18 10/20/2013 [facility] Weight 71.591 10/20/2013 [facility] Heart Rate 67 10/20/2013 [facility] Respitory Rate 20 10/20/2013 [facility] Systolic (mm Hg) 162 10/20/2013 [facility] Diastolic (mm Hg) 89 10/20/2013 [facility] Temperature Oral (F) 98.9 F 10/20/2013 [facility] Weight 72.727 02/07/2012 [facility] Height 162.56 cm 02/07/2012 [facility] Weight 81.818 10/08/2011 [facility] Height 162.56 cm 10/08/2011 [facility] Encounters Location Location Details Encounter Type Encounter Number Reason For Visit Attending Provider ADM Date DC Date Status Source [facility] Emergency [id number] CONNIE PERALTA 10/08/2011 10/08/2011 Discharged [facility] Emergency [id number] JASE PISANO 02/06/2012 02/06/2012 Discharged [facility] Outpatient [id number] XRAY MIRANDA BERNAL 09/17/2012 Active [facility] Outpatient [id number] MENAPAUSAL MIRANDA BERNAL 09/21/2012 Active [facility] [id number] René Arndt 10/20/2013 10/20/2013 [facility] [id number] Russ Alejo 11/16/2013 11/16/2013 [facility] [id number] Bertha [place] 05/05/2014 05/05/2014 [facility] Procedures No Data Provided for This Section Assessment and Plan No Data Provided for This Section Plan of Care No Data Provided for This Section Social History Social History Date Source Social History TypeResponse Smoking Status Never smoker; Exposure to Tobacco Smoke None; Cigarette Smoking Last 365 Days No; Reg Smoking Cessation Counseling No 05/05/2014 [facility] Family History No Data Provided for This Section Advance Directives No Data Provided for This Section Functional Status No Data Provided for This Section
[2018-09-22] MEDS ORDERED: ASPIRIN 81 MG CHEW TAB PO ONE (14:45)
[2018-09-22 14:56] LABS: BASOPHILS # (AUTO) 0.1 (0.0-0.1); BASOPHILS % 0.8 % (0.0-1.0); EOSINOPHILS # (AUTO) 0.2 (0.0-0.4); EOSINOPHILS % 2.4 % (0.0-6.0); HEMATOCRIT 40.3 % (34.2-44.1); HEMOGLOBIN 13.5 g/dL (12.0-16.0); MEAN CORPUSCULAR HEMOGLOBIN 27.8 pg (28-32); MEAN CORPUSCULAR HGB CONC 33.5 g/dL (31-35); MEAN CORPUSCULAR VOLUME 82.9 fL (81-99); MONOCYTES # (AUTO) 0.8 (0.2-0.8); NEUTROPHILS # (AUTO) 6.5 (2.1-6.9); PLATELET COUNT 358 x10e3/uL (140-360); RED BLOOD COUNT 4.86 x10e6/uL (3.6-5.1); RED CELL DISTRIBUTION WIDTH 13.6 % (11.7-14.4)
[2018-09-22 15:05] LABS: INR 0.94; PROTHROMBIN TIME 13.1 seconds (11.9-14.5)
[2018-09-22 15:12] LABS: ALANINE AMINOTRANSFERASE 11 IU/L (0-55); ALBUMIN 3.9 g/dL (3.5-5.0); ALBUMIN/GLOBULIN RATIO 1.1 (0.8-2.0); ALKALINE PHOSPHATASE 72 IU/L (40-150); ANION GAP 15.7 mmol/L (8-16); BLOOD UREA NITROGEN 10 mg/dL (7-26); BUN/CREATININE RATIO 14 (6-25); CALCIUM 9.5 mg/dL (8.4-10.2); CARBON DIOXIDE 23 mmol/L (22-29); CHLORIDE 100 mmol/L (98-107); CREATINE KINASE 63 IU/L (29-168); CREATININE, SERUM 0.74 mg/dL (0.57-1.11); EST GLOMERULAR FILTRATION RATE > 60 ML/MIN (60-); GLUCOSE 132 mg/dL (74-118); POTASSIUM 3.7 mmol/L (3.5-5.1); SODIUM 135 mmol/L (136-145)
[2018-09-22 15:41] LABS: BILIRUBIN,URINE NEGATIVE (NEGATIVE); CLARITY,URINE SL CLOUDY (CLEAR); COLOR,URINE YELLOW (YELLOW); KETONES,URINE NEGATIVE (NEGATIVE); LEUKOCYTE ESTERASE ,URINE NEGATIVE (NEGATIVE); NITRITE,URINE NEGATIVE (NEGATIVE); PROTEIN,URINE DIPSTICK NEGATIVE (NEGATIVE); URINE UROBILINOGEN 0.2 mg/dL (0.2 - 1)
[2018-09-22 15:55] LABS: AMORPHOUS SEDIMENT,URINE RARE (FEW); BACTERIA,URINE RARE /HPF; EPITHELIAL CELLS,URINE RARE /LPF
[2018-09-22 20:21] VITALS: BP 165/77
== END 2018-09-22 20:22 | disposition home or self-care (01) ==
LOC: ER 14:21
DX: R10.12 Left upper quadrant pain (principal); I10 Essential (primary) hypertension; E78.5 Hyperlipidemia, unspecified; R00.1 Bradycardia, unspecified; G43.909 Migraine, unspecified, not intractable, without status migrainosus; Z86.718 Personal history of other venous thrombosis and embolism; Z86.711 Personal history of pulmonary embolism
CPT/HCPCS: 36415; 80053; 81001; 82550; 82553; 83880; 84484; 85025; 85610; 85730; 93005; 99283